=== PATIENT | male | born 1945 | race Hispanic/Latino ===

== ENCOUNTER 2018-10-27 10:29 | Inpatient (IN) | payer MEDICARE ==
[2018-10-27 10:36] VITALS: BMI 27.8
[2018-10-27] MEDS: Sodium Chloride 0.9% 1,000 ML IV SCH ×2 (11:31→21:16)
--- NOTE | 2018-10-27 11:33 | ED PDOC ---
HPI: SOB/CHF/COPD Time Seen by Provider: 10/27/18 10:55 Chief Complaint (Nursing): Shortness Of Breath Chief Complaint (Provider): Shortness Of Breath History Per: Patient History/Exam Limitations: no limitations Onset/Duration Of Symptoms: Days Additional Complaint(s): Emanuel Bowen is a 73 year old male with a past medical history of hypertension who is presenting to the ED for evaluation of inability to sleep for 2 weeks. Patient states that anytime he lays down he feels short of breath and palpitations. He reports that the shortness of breath would resolve about a half hour after he got up. Patient states that he has been medicating with Robitussin for a cold but denies any cough, fever, or chest pain. PMD: none provided Past Medical History Reviewed: Historical Data, Nursing Documentation, Vital Signs Vital Signs: Last Vital Signs Temp 97.7 F 10/27/18 10:36 Pulse 165 H 10/27/18 11:21 Resp 18 10/27/18 11:21 BP 160/132 H 10/27/18 11:21 Pulse Ox 92 L 10/27/18 11:21 - Medical History PMH: HTN Denies: Alzheimer's Disease, Anemia, Anxiety, Arthritis, Asthma, Atrial Fibrillation, Bipolar Disorder, Bronchitis, CAD, Cardia Arrhythmia, CHF, COPD, Crohn's Disease, Dementia, Depression, Diverticulitis, Emphysema, Fractures, Gastritis, Gall Bladder Disease, HIV, Hypercholesterolemia, Hyperthyroidism, Hypothyroidism, Kidney Stones, Migraine, Mitral Valve Prolapse, Multiple Sclerosis, Osteoporosis, Pancreatitis, Paranoia, Parkinson's Disease, Peripheral Edema, Pneumonia, Post Traumatic Stress Disorder, Pulmonary Embolism, Chronic Kidney Disease, Rheumatoid Arthritis, Schizophrenia, Seizures, Sickle Cell Disease, Sexually Transmitted Disease, Sleep Apnea, TIA - Surgical History Surgical History: No Surg Hx Denies: Appendectomy, CABG, Carotid Endarterectomy, Cholecystectomy, Coronary Stent, Pacemaker, Tonsillectomy - Family History Family History: States: Unknown Family Hx - Social History Current smoker - smoking cessation education provided: No Alcohol: None Drugs: Denies - Allergies Allergies/Adverse Reactions: Allergies Allergy/AdvReac Type Severity Reaction Status Date / Time No Known Allergies Allergy Verified 06/06/14 04:18 Review of Systems ROS Statement: Except As Marked, All Systems Reviewed And Found Negative Constitutional: Negative for: Fever Cardiovascular: Positive for: Palpitations. Negative for: Chest Pain Respiratory: Positive for: Shortness of Breath. Negative for: Cough Physical Exam - Reviewed Nursing Documentation Reviewed: Yes Vital Signs Reviewed: Yes - Physical Exam Appears: Positive for: Non-toxic, No Acute Distress Head Exam: Positive for: ATRAUMATIC, NORMAL INSPECTION, NORMOCEPHALIC Skin: Positive for: Normal Color, Warm, DRY Eye Exam: Positive for: EOMI, Normal appearance, PERRL Cardiovascular/Chest: Positive for: Tachycardia, Other (heart sounds elevated ) Respiratory: Positive for: Normal Breath Sounds. Negative for: Respiratory Distress Gastrointestinal/Abdominal: Positive for: Normal Exam, Soft. Negative for: Tenderness Extremity: Positive for: Normal ROM, Pedal Edema (1+ edema right leg and trace in left). Negative for: Capillary Refill, Deformity Neurologic/Psych: Positive for: Alert, Oriented. Negative for: Motor/Sensory Deficits - Laboratory Results Result Diagrams: 10/27/18 11:35 10/27/18 11:35 - ECG ECG Rhythm: Positive for: Atrial Fibrillation, Nonspecific Changes (nonpecific ST changes in lateral leads ) Rate: 103 O2 Sat by Pulse Oximetry: 92 (RA) Medical Decision Making Medical Decision Making: Time: 11:20 Impression: paroxysmal AFib rule out CAD Plan: --EKG --BNP --CMP --Troponin --CBC --D Dimer --Coags --Chest X-Ray --Aspirin 81 mg PO --Cardizem IV --Cardizem 20 mg IVP --IV Fluids --------- -------- Scribe Attestation: Documented by Yadira Rivera, acting as a scribe for Milena Frances MD. Provider Scribe Attestation: All medical record entries made by the Scribe were at my direction and personally dictated by me. I have reviewed the chart and agree that the record accurately reflects my personal performance of the history, physical exam, medical decision making, and the department course for this patient. I have also personally directed, reviewed, and agree with the discharge instructions and disposition. Disposition - Clinical Impression Clinical Impression: New onset a-fib - Patient ED Disposition Is Patient to be Admitted: Yes Doctor Will See Patient In The: Hospital - Disposition Disposition: Transfer of Care Disposition Time: 14:00 Condition: GUARDED Instructions: Atrial Fibrillation Forms: [employer] (Albanian) - Pt Status Changed To: Hospital Disposition Of: Inpatient - Admit Certification Admit to Inpatient:: After my assessment, the patient will require hospitalization for at least two midnights. This is because of the severity of symptoms shown, intensity of services needed, and/or the medical risk in this patient being treated as an outpatient. - POA Present On Arrival: None
--- NOTE | 2018-10-27 11:39 | RAD ---
Date of service: 10/27/2018 PROCEDURE: CHEST RADIOGRAPH, 1 VIEW HISTORY: tachycardia COMPARISON: 06/08/2014 FINDINGS: LUNGS: Clear. PLEURA: Small right pleural effusion. No left pleural effusion. No pneumothorax. CARDIOVASCULAR: No aortic atherosclerotic calcification present. Normal. OSSEOUS STRUCTURES: No significant abnormalities. VISUALIZED UPPER ABDOMEN: Normal. OTHER FINDINGS: None. IMPRESSION: Small right pleural effusion. Otherwise unremarkable.
[2018-10-27 11:44] LABS: BASO % 0.7 % (0.0-2.0); EOS # 0.1 K/uL (0.0-0.7); HEMOGLOBIN 14.4 g/dL (12.0-18.0); LYMPH # 0.8 K/uL (1.0-4.3); LYMPH % 12.5 % (20.0-40.0); MEAN CORPUSCULAR HEMOGLOBIN 32.9 pg (27.0-31.0); MEAN CORPUSCULAR HGB CONC 33.9 g/dL (33.0-37.0); MEAN PLATELET VOLUME 8.4 fl (7.2-11.7); MONO # 0.5 K/uL (0.0-0.8); MONO % 7.4 % (0.0-10.0); NEUT # 5.1 K/uL (1.8-7.0); NEUT % 78.4 % (50.0-75.0); NRBC % 0.1 % (0.0-0.0); RBC 4.37 Mil/uL (4.40-5.90); RED CELL DISTRIBUTION WIDTH 13.1 % (11.5-14.5); WHITE BLOOD COUNT 6.5 K/uL (4.8-10.8)
[2018-10-27 11:51] LABS: INR 1.1; PROTHROMBIN TIME 12.8 Seconds (9.8-13.1)
[2018-10-27 11:54] LABS: PARTIAL THROMBOPLASTIN TIME 32.3 Seconds (25.6-37.1)
[2018-10-27 12:04] LABS: ALB/GLOB RATIO 1.2 (1.0-2.1); CALCIUM 9.5 mg/dL (8.4-10.2)
[2018-10-27 12:20] LABS: TROPONIN I 0.044 ng/mL (0.00-0.120)
[2018-10-27] MEDS ORDERED: Digoxin 500 mcg/2ml (0.5 mg/2ml) Inj IVP STA (17:12)
[2018-10-27] MEDS ORDERED: Metoprolol 1 mg/ml Inj IVP STA (17:20)
--- NOTE | 2018-10-27 17:40 | PCM.RRT ---
ELEVATOR DISPATCHER Nurse Assessment - Situation ELEVATOR DISPATCHER Responder Arrival Time: 17:00 Location: Room [facility] ELEVATOR DISPATCHER Reason for Call: Tachycardia, Hypertension ELEVATOR DISPATCHER Called By: RN - IV IV Inserted during ELEVATOR DISPATCHER?: No - Respiratory Oxygen Delivery Method: Nasal Cannula - Diagnostic Test Ordered EKG: Yes (Atrial fibrillation w/ RVR) - Time ELEVATOR DISPATCHER Ended Time ELEVATOR DISPATCHER Ended: 17:25 - Recommendations ELEVATOR DISPATCHER Level of Care Recommendations: Remain in current setting Notifications: Attending Physician, Consultations (Dr. Farnsworth) I.Reason for ELEVATOR DISPATCHER - A) Acute Change in Patient: (Select all that apply): Acute change in heart rate less than 50 or greater than 120 - Neurological Status (Select all that apply): Alert, Responsive, Oriented, Verbal, Follows Commands - Respiratory Oxygen Delivery Method: Nasal Cannula @L/min (2L) - Constitutional Appears: No Acute Distress - Head Head Exam: ATRAUMATIC - Eyes Eye Exam: Normal appearance - Respiratory Exam Respiratory Exam: Clear to Ausculation Bilateral, NORMAL BREATHING PATTERN - Cardiovascular Exam Cardiovascular Exam: Tachycardia, +S1, +S2 - GI/Abdominal Exam GI & Abdominal Exam: Soft. absent: Tenderness - Neurological Exam Neurological Exam: Alert, Awake, Oriented x3 - Extremities Exam Extremities Exam: Pedal Edema. absent: Calf Tenderness, Tenderness Plan - Assessment of Findings&Treatment Plan 73 y/o pleasant male w/ pmhx of HTN and HLD who was admitted w/ afib. Patient reports that he stopped taking his BP meds months ago due to dizziness and falls, and recently started having palpitation and SOB. ELEVATOR DISPATCHER called for tachycardia and hypertension. Patient is alert, responsive, asymptomatic. Denies chest pain, SOB. Vitals at beginning of ELEVATOR DISPATCHER: BP 185/12 HR 170 SpO2 95% on 3L Patient is on max Cardizem drip. EKG: a fib w/ RVR Patient given Digoxin 0.5mg IV STAT and Metoprolol 5mg IV STAT x1 Cardiology consulted, Dr. Farnsworth at bedside. Vitals at end of ELEVATOR DISPATCHER: BP 161/88 HR 99. Patient stable. Continue to monitor vitals.
--- NOTE | 2018-10-27 17:48 | CARD ---
APPROVED REPORT Date of service: 10/27/2018 EKG Measurement Heart [id number] <Conclusion> Atrial fibrillation with rapid ventricular response with premature ventricular or aberrantly conducted complexes ST & T wave abnormality, consider lateral ischemia Abnormal ECG
--- NOTE | 2018-10-27 18:01 | CP.PCM.CON ---
History of Present Illness - History of Present Illness History of Present Illness: I was asked to evaluate patient by Dr Franco Patient was seen 10/27/18 1700 Patient is a 73 year old male with HTN who presents with dsypnea and uncontrolled hypertension. He has previously been on antihypertensive therapy, but stopped about 2 months ago due to side effects He was found to be in afib with RVR. The patient was given cardizem and is currently on a drip. He denies current chest pain. Review of Systems - Constitutional Constitutional: absent: As Per HPI, Anorexia, Chills, Daytime Sleepiness, Excessive Sweating, Fatigue, Fever, Frequent Falls, Headache, Increased Appetite, Lethargy, Malaise, Night Sweats, Snoring, Sleep Apnea, Weight Gain, Weight Loss, Weakness, Other - EENT Eyes: absent: As Per HPI, Blind Spots, Blurred Vision, Change in Vision, Decreased Night Vision, Diplopia, Discharge, Dry Eye, Exophthalmos, Floaters, Irritation, Itchy Eyes, Loss of Peripheral Vision, Pain, Photophobia, Requires Corrective Lenses, Sees Flashes, Spots in Vision, Tunnel Vision, Other Visual Disturbances, Loss of Vision, Other Ears: absent: As Per HPI, Decreased Hearing, Ear Discharge, Ear Pain, Tinnitus, Abnormal Hearing, Disequilibrium, Dizziness, Other Nose/Mouth/Throat: absent: As Per HPI, Epistaxis, Nasal Congestion, Nasal Discharge, Nasal Obstruction, Nasal Trauma, Nose Pain, Post Nasal Drip, Sinus Pain, Sinus Pressure, Bleeding Gums, Change in Voice, Dental Pain, Dry Mouth, Dysphagia, Halitosis, Hoarsness, Lip Swelling, Mouth Lesions, Mouth Pain, O dynophagia, Sore Throat, Throat Swelling, Tongue Swelling, Facial Pain, Neck Pain, Neck Mass, Other - Cardiovascular Cardiovascular: Dyspnea, Rapid Heart Rate - Respiratory Respiratory: Dyspnea - Gastrointestinal Gastrointestinal: absent: As Per HPI, Abdominal Pain, Belching, Bloating, Change in Bowel Habits, Change in Stool Character, Coffee Ground Emesis, Constipation, Cramping, Diarrhea, Dyspepsia, Dysphagia, Early Satiety, Excessive Flatus, Fecal Incontinence, Heartburn, Hematemesis, Hematochezia, Loose Stools, Melena, Nausea, Odynophagia, Temesmus, Vomiting, Other - Genitourinary Genitourinary: absent: As Per HPI, Change in Urinary Stream, Difficulty Urinating, Dysuria, Flank Pain, Hematuria, Pyuria, Nocturia, Urinary Incontinenc e, Urinary Frequency, Urinary Hesitance, Urinary Urgency, Voiding Freq/Small Amts, Freq UTI, Hx Renal/Bladder Calculi, Hx /Renal Surgery, Bladder Distension, Other - Musculoskeletal Musculoskeletal: absent: As Per HPI, Abnormal Gait, Arthralgias, Atrophy, Back Pain, Deformity, Joint Swelling, Limited Range of Motion, Loss of Height, Muscle Cramps, Muscle Weakness, Myalgias, Neck Pain, Numbness, Radiating Pain into Limb, Stiffness, Tingling, Other - Integumentary Integumentary: absent: As Per HPI, Acne, Alopecia, Bleeding Lesions, Change in Hair, Change in Nails, Change in Pigmentation, Changing Lesions, Dry Skin, Erythema, Furuncle, Hirsutism, Lesions, New Lesions, Non-Healing Lesions, Photosensitivity, Pruritus, Rash, Skin Pain, Skin Ulcer, Sores, Striae, Swelling, Unusual Bruising, Wounds, Jaundice, Other - Neurological Neurological: absent: As Per HPI, Abnormal Gait, Abnormal Hearing, Abnormal Movements, Abnormal Speech, Behavioral Changes, Burning Sensations, Confusion, Convulsions, Disequilibrium, Dizziness, Numbness, Focal Weakness, Frequent Falls, Headaches, Lack of Coordination, Loss of Vision, Memory Loss, Paresthesias, Radicular Pain, Restless Legs, Sensory Deficit, Syncope, Tingling, Tremor, Vertigo, Weakness, Other Visual Disturbances, Other - Psychiatric Psychiatric: absent: As Per HPI, Abnormal Sleep Pattern, Anhedonia, Anxiety, Auditory Hallucinations, Behavioral Changes, Change in Appetite, Change in Li ol[place], Confusion, Depression, Difficulty Concentrating, Hallucinations, Homicidal Ideation, Hopelessness, Irritability, Memory Loss, Mood Swings, Panic Attacks, Paranoia, Suicidal Ideation, Visual Hallucinations, Tactile Hallucinations, Other - Endocrine Endocrine: absent: As Per HPI, Change in Body Appearance, Change in Libido, Cold Intolorance, Deepening of Voice, Excessive Sweating, Fatigue, Flushing, Heat Intolorance, Increase in Ring/Shoe/Hat Size, Palpitations, Polydipsia, Polyphagia, Polyuria, Other - Hematologic/Lymphatic Hematologic: absent: As Per HPI, Easy Bleeding, Easy Bruising, Lymphadenopathy, Other Past Patient History - Infectious Disease Hx of Infectious Diseases: None - Tetanus Immunizations Tetanus Immunization: Unknown - Past Medical History & Family History Past Medical History?: Yes - Past Social History Smoking Status: Never Smoked - CARDIAC Hx Cardiac Disorders: Yes Hx Hypercholesterolemia: Yes Hx Hypertension: Yes - PULMONARY Hx Respiratory Disorders: No Hx Asthma: No Hx Bronchitis: No Hx Chronic Obstructive Pulmonary Disease (COPD): No Hx Emphysema: No Hx Pneumonia: No Hx Pulmonary Embolism: No Hx Sleep Apnea: No - NEUROLOGICAL Hx Neurological Disorder: No Hx Alzheimer's Disease: No Hx Dementia: No Hx Migraine: No Hx Multiple Sclerosis: No Hx Parkinson's Disease: No Hx Seizures: No Hx Transient Ischemic Attacks (TIA): No - HEENT Hx HEENT Problems: No Hx Blind: No Hx Cataracts: No Hx Deafness: No Hx Difficulty Chewing: No Hx Epistaxis: No Hx Glaucoma: No Hx Macular Degeneration: No - RENAL Hx Chronic Kidney Disease: No Hx Kidney Stones: No - ENDOCRINE/METABOLIC Hx Endocrine Disorders: No Hx Hyperthyroidism: No Hx Hypothyroidism: No - HEMATOLOGICAL/ONCOLOGICAL Hx Blood Disorders: No Hx Anemia: No Hx Human Immunodeficiency Virus (HIV): No Hx Sickle Cell Disease: No - INTEGUMENTARY Hx Dermatological Problems: No Hx Basil Cell: No Hx Pitts: No Hx Cellulitis: No Hx Eczema: No Hx Melanoma: No Hx Psoriasis: No Hx Squamous Cell: No Other/Comment: Skin Ca with removal of lesion from left upper arm - MUSCULOSKELETAL/RHEUMATOLOGICAL Hx Musculoskeletal Disorders: No Hx Arthritis: No Hx Falls: No Hx Fractures: No Hx Osteoporosis: No Hx Rheumatoid Arthritis: No - GASTROINTESTINAL Hx Gastrointestinal Disorders: No Hx Crohn's Disease: No Hx Diverticulitis: No Hx Gall Bladder Disease: No Hx Gastritis: No Hx Pancreatitis: No - GENITOURINARY/GYNECOLOGICAL Hx Genitourinary Disorders: No Hx Sexually Transmitted Disorders: No - PSYCHIATRIC Hx Psychophysiologic Disorder: No Hx Anxiety: No Hx Bipolar Disorder: No Hx Depression: No Hx Paranoia: No Hx Post Traumatic Stress Disorder: No Hx Schizophrenia: No Hx Substance Use: No - SURGICAL HISTORY Hx Surgeries: No Hx Appendectomy: No Hx Carotid Endarterectomy: No Hx Cholecystectomy: No Hx Coronary Artery Bypass Graft: No Hx Coronary Stent: No Hx Tonsillectomy: No - ANESTHESIA Hx Anesthesia: Yes Hx Anesthesia Reactions: No Hx Malignant Hyperthermia: No Has any member of the family had a problem w/ anesthesia?: No Meds Allergies/Adverse Reactions: Allergies Allergy/AdvReac Type Severity Reaction Status Date / Time No Known Allergies Allergy Verified 06/06/14 04:18 - Medications Medications: Current Medications Diltiazem HCl 125 mg/ Sodium (Chloride) 125 mls @ 5 mls/hr IV .Q24H [facility]; Protocol Stop: 10/28/18 11:17 Last Admin: 10/27/18 11:39 Dose: 5 mg/hr, 5 mls/hr Sodium Chloride (Sodium Chloride 0.9%) 1,000 mls @ 100 mls/hr IV .Q10H [facility] Last Admin: 10/27/18 11:31 Dose: 100 mls/hr Physical Exam - Constitutional Appears: Non-toxic - Head Exam Head Exam: NORMAL INSPECTION - Eye Exam Eye Exam: Normal appearance - ENT Exam ENT Exam: Mucous Membranes Moist - Neck Exam Neck exam: Positive for: Full Rom - Respiratory Exam Respiratory Exam: Decreased Breath Sounds - Cardiovascular Exam Cardiovascular Exam: Irregular Rhythm - GI/Abdominal Exam GI & Abdominal Exam: Normal Bowel Sounds - Rectal Exam Rectal Exam: Deferred - Extremities Exam Extremities exam: Negative for: pedal edema - Back Exam Back exam: NORMAL INSPECTION - Neurological Exam Neurological exam: Alert, Oriented x3 - Psychiatric Exam Psychiatric exam: Normal Affect - Skin Skin Exam: Normal Color Results - Vital Signs Recent Vital Signs: Last Vital Signs Temp 97.3 F L 10/27/18 16:57 Pulse 121 H 10/27/18 16:57 Resp 20 10/27/18 17:04 BP 167/99 H 10/27/18 16:57 Pulse Ox 95 10/27/18 16:57 - Labs Result Diagrams: 10/27/18 11:35 10/27/18 11:35 Labs: Laboratory Results - last 24 hr 10/27/18 10/27/18 10/27/18 11:35 11:35 11:35 WBC 6.5 RBC 4.37 L Hgb 14.4 Hct 42.4 MCV 97.0 H MCH 32.9 H MCHC 33.9 RDW 13.1 Plt Count 251 MPV 8.4 Neut % (Auto) 78.4 H Lymph % (Auto) 12.5 L [place] % (Auto) 7.4 Eos % (Auto) 1.0 Baso % (Auto) 0.7 Neut # (Auto) 5.1 Lymph # (Auto) 0.8 L [place] # (Auto) 0.5 Eos # (Auto) 0.1 Baso # (Auto) 0.0 PT 12.8 INR 1.1 APTT 32.3 D-Dimer, Quantitative 267 H Sodium 141 Potassium 4.4 Chloride 103 Carbon Dioxide 26 Anion Gap 16 BUN 34 H Creatinine 1.4 Est GFR ( Amer) 60 Est GFR (Non-Af Amer) 50 Random Glucose 114 H Calcium 9.5 Total Bilirubin 0.7 AST 34 ALT 53 Alkaline Phosphatase 106 Troponin I 0.0440 NT-Pro-B Natriuret Pep 4010 H Total Protein 7.5 Albumin 4.0 Globulin 3.4 Albumin/Globulin Ratio 1.2 - EKG Data EKG Interpreted by: Myself Assessment & Plan (1) Atrial fibrillation Assessment and Plan: patient will require rate control. continue cardizem. recommend anticoagulation with lovenox. pro BNP is elevated and likely suggests cardiomyopathy. check echocardiogram Status: Acute (2) Hypertension Assessment and Plan: blood pressure control Status: Chronic Priority: High
[2018-10-28] MEDS: Metoprolol Succinate 50 mg XL Tab PO SCH (09:03)
--- NOTE | 2018-10-28 10:19 | CARD ---
APPROVED REPORT Date of service: 10/27/2018 EKG Measurement Heart [id number] <Conclusion> Atrial fibrillation with rapid ventricular response Nonspecific ST and T wave abnormality Abnormal ECG
[2018-10-28] MEDS ORDERED: Digoxin 500 mcg/2ml (0.5 mg/2ml) Inj IVP ONE (10:30)
--- NOTE | 2018-10-28 11:24 | CP.PCM.PN ---
Subjective - Date & Time of Evaluation Date of Evaluation: 10/28/18 Time of Evaluation: 11:00 - Subjective Subjective: patient had an episode of afib with RVR. no chest pain or dsypnea. Objective - Vital Signs/Intake and Output Vital Signs (last 24 hours): Temp Pulse Resp BP Pulse Ox 98.3 F 155 H 18 148/81 98 10/28/18 07:57 10/28/18 09:52 10/28/18 07:57 10/28/18 09:52 10/28/18 07:57 Intake and Output: 10/28/18 10/28/18 06:59 18:59 Intake Total 125 Balance 125 - Medications Medications: Current Medications Atorvastatin Calcium (Lipitor) 10 mg PO HS [facility] Last Admin: 10/27/18 21:15 Dose: 10 mg Diltiazem HCl (Cardizem) 60 mg PO Q6 NELLI Enoxaparin Sodium (Lovenox) 90 mg SC Q12 [facility]; Protocol Sodium Chloride (Sodium Chloride 0.9%) 1,000 mls @ 100 mls/hr IV .Q10H [facility] Last Admin: 10/27/18 21:16 Dose: 100 mls/hr Metoprolol Succinate (Toprol Xl) 50 mg PO DAILY [facility] Last Admin: 10/28/18 09:03 Dose: 50 mg - Labs Labs: 10/27/18 11:35 10/27/18 11:35 PT 12.8 Seconds (9.8-13.1) 10/27/18 11:35 INR 1.1 10/27/18 11:35 APTT 32.3 Seconds (25.6-37.1) 10/27/18 11:35 - Constitutional Appears: Non-toxic - Head Exam Head Exam: NORMAL INSPECTION - Eye Exam Eye Exam: Normal appearance - ENT Exam ENT Exam: Mucous Membranes Moist - Neck Exam Neck Exam: Full ROM - Respiratory Exam Respiratory Exam: Decreased Breath Sounds - Cardiovascular Exam Cardiovascular Exam: Tachycardia, Irregular Rhythm - GI/Abdominal Exam GI & Abdominal Exam: Normal Bowel Sounds - Rectal Exam Rectal Exam: Deferred - Extremities Exam Extremities Exam: absent: Pedal Edema - Back Exam Back Exam: NORMAL INSPECTION - Neurological Exam Neurological Exam: Alert, Awake, Oriented x3 - Psychiatric Exam Psychiatric exam: Normal Affect - Skin Skin Exam: Normal Color Assessment and Plan (1) Atrial fibrillation Assessment & Plan: needs improved rate control. recommend cardizem 60 mg q 6 hr. maintain lovenox. check echo. will decide on the of oral anticoagulation based on echo results. Status: Acute (2) Hypertension Assessment & Plan: blood pressure control Status: Chronic
[2018-10-28 11:51] VITALS: PULSE 144
[2018-10-28] MEDS: Enoxaparin 100 mg Syringe SC SCH ×3 (11:54→21:58)
--- NOTE | 2018-10-28 20:14 | CARD ---
APPROVED REPORT Date of service: 10/28/2018 EXAM: Two-dimensional and M-mode echocardiogram with Doppler and color Doppler. Other Information Quality : AverageRhythm : Atrial Fibrillation INDICATION Abnormal EKG/Arrhythmia AFIB 2D DIMENSIONS IVSd1.66 (0.7-1.1cm)LVDd5.11 (3.9-5.9cm) LVOT Diameter2.29 (1.8-2.4cm)PWd1.15 (0.7-1.1cm) IVSs2.07 (0.8-1.2cm)LVDs3.19 (2.5-4.0cm) FS (%) 37.6 %PWs1.33 (0.8-1.2cm) M-Mode DIMENSIONS Left Atrium (MM)4.34 (2.5-4.0cm)Aortic Root3.24 (2.2-3.7cm) Aortic Valve AoV Peak Cuhtgshx548.1cm/sAoV VTI17.2cmAO Peak GR.6mmHg LVOT Peak Cctsmepk96.9cm/sLVOT VTI13.21cmAO Mean GR.3mmHg SANGITA (VMAX)1.27gl1UPU (VTI)1.50cm2 Mitral Valve MV E Peak Gr.56mmHgE/A ratio0.0 TDI E/Lateral E'0.0E/Medial E'0.0 Pulmonary Valve PV Peak Wzldbedy07.3cm/s Tricuspid Valve TR Peak Hquzilam393ge/sRAP [id number] Peak Gr.26mmHg [id number] LEFT VENTRICLE The left ventricle is normal size. There is mild concentric left ventricular hypertrophy. The left ventricular systolic function is normal. The estimated ejection fraction is 60-65% No regional wall motion abnormalities noted.. The left ventricular diastolic function cannot be assessed due to atrial fibrillation. No left ventricle thrombus noted on this study. There is no ventricular septal defect visualized. There is no left ventricular aneurysm. There is no mass noted in the left ventricle. RIGHT VENTRICLE The right ventricle is normal size. There is normal right ventricular wall thickness. The right ventricular systolic function is normal. ATRIA The left atrium is mild to moderately dilated. The right atrium size is normal. The interatrial septum is intact with no evidence for an atrial septal defect. AORTIC VALVE The aortic valve is normal in structure. No aortic regurgitation is present. There is no aortic valvular stenosis. There is no aortic valvular vegetation. MITRAL VALVE The mitral valve is normal in structure. There is no evidence of mitral valve prolapse. There is no mitral valve stenosis. There is mild mitral valve regurgitation noted. TRICUSPID VALVE The tricuspid valve is normal in structure. There is mild tricuspid valve regurgitation noted. RVSP is calculated at 42 mm Hg. There is no tricuspid valve prolapse or vegetation. There is no tricuspid valve stenosis. PULMONIC VALVE The pulmonary valve is normal in structure. There is no pulmonic valvular regurgitation. There is no pulmonic valvular stenosis. GREAT VESSELS The aortic root is normal in size. The ascending aorta is mildly dilated (4.0 cm). The pulmonary artery is normal. The IVC is dilated in size and collapses >50% with inspiration. PERICARDIAL EFFUSION There is no pericardial effusion. There is no pleural effusion. <Conclusion> There is mild concentric left ventricular hypertrophy. The estimated ejection fraction is 60-65% The left ventricular diastolic function cannot be assessed due to atrial fibrillation. The left atrium is mild to moderately dilated. There is mild mitral valve regurgitation noted. There is mild tricuspid valve regurgitation noted. RVSP is calculated at 42 mm Hg. The ascending aorta is mildly dilated (4.0 cm). The IVC is dilated in size and collapses >50% with inspiration.
--- NOTE | 2018-10-29 01:10 | CP.PCM.HP ---
Past Patient History - Infectious Disease Hx of Infectious Diseases: None - Tetanus Immunizations Tetanus Immunization: Unknown - Past Medical History & Family History Past Medical History?: Yes - Past Social History Smoking Status: Never Smoked - CARDIAC Hx Cardiac Disorders: Yes Hx Hypercholesterolemia: Yes Hx Hypertension: Yes - PULMONARY Hx Respiratory Disorders: No Hx Asthma: No Hx Bronchitis: No Hx Chronic Obstructive Pulmonary Disease (COPD): No Hx Emphysema: No Hx Pneumonia: No Hx Pulmonary Embolism: No Hx Sleep Apnea: No - NEUROLOGICAL Hx Neurological Disorder: No Hx Alzheimer's Disease: No Hx Dementia: No Hx Migraine: No Hx Multiple Sclerosis: No Hx Parkinson's Disease: No Hx Seizures: No Hx Transient Ischemic Attacks (TIA): No - HEENT Hx HEENT Problems: No Hx Blind: No Hx Cataracts: No Hx Deafness: No Hx Difficulty Chewing: No Hx Epistaxis: No Hx Glaucoma: No Hx Macular Degeneration: No - RENAL Hx Chronic Kidney Disease: No Hx Kidney Stones: No - ENDOCRINE/METABOLIC Hx Endocrine Disorders: No Hx Hyperthyroidism: No Hx Hypothyroidism: No - HEMATOLOGICAL/ONCOLOGICAL Hx Blood Disorders: No Hx Anemia: No Hx Human Immunodeficiency Virus (HIV): No Hx Sickle Cell Disease: No - INTEGUMENTARY Hx Dermatological Problems: No Hx Basil Cell: No Hx Pitts: No Hx Cellulitis: No Hx Eczema: No Hx Melanoma: No Hx Psoriasis: No Hx Squamous Cell: No Other/Comment: Skin Ca with removal of lesion from left upper arm - MUSCULOSKELETAL/RHEUMATOLOGICAL Hx Musculoskeletal Disorders: No Hx Arthritis: No Hx Falls: No Hx Fractures: No Hx Osteoporosis: No Hx Rheumatoid Arthritis: No - GASTROINTESTINAL Hx Gastrointestinal Disorders: No Hx Crohn's Disease: No Hx Diverticulitis: No Hx Gall Bladder Disease: No Hx Gastritis: No Hx Pancreatitis: No - GENITOURINARY/GYNECOLOGICAL Hx Genitourinary Disorders: No Hx Sexually Transmitted Disorders: No - PSYCHIATRIC Hx Psychophysiologic Disorder: No Hx Anxiety: No Hx Bipolar Disorder: No Hx Depression: No Hx Paranoia: No Hx Post Traumatic Stress Disorder: No Hx Schizophrenia: No Hx Substance Use: No - SURGICAL HISTORY Hx Surgeries: No Hx Appendectomy: No Hx Carotid Endarterectomy: No Hx Cholecystectomy: No Hx Coronary Artery Bypass Graft: No Hx Coronary Stent: No Hx Tonsillectomy: No - ANESTHESIA Hx Anesthesia: Yes Hx Anesthesia Reactions: No Hx Malignant Hyperthermia: No Has any member of the family had a problem w/ anesthesia?: No Meds Allergies/Adverse Reactions: Allergies Allergy/AdvReac Type Severity Reaction Status Date / Time No Known Allergies Allergy Verified 06/06/14 04:18 Results - Vital Signs Recent Vital Signs: Last Vital Signs Temp 97.5 F L 10/29/18 00:19 Pulse 96 H 10/29/18 00:19 Resp 18 10/29/18 00:19 BP 159/99 H 10/29/18 00:19 Pulse Ox 95 10/29/18 00:19 - Labs Result Diagrams: 10/27/18 11:35 10/27/18 11:35
[2018-10-29] MEDS: Enoxaparin 100 mg Syringe SC SCH (09:17)
[2018-10-29] MEDS: Metoprolol Succinate 50 mg XL Tab PO SCH ×2 (09:18→17:10)
[2018-10-29 11:42] LABS: MEAN CELL VOLUME 97.1 fl (80.0-94.0); MEAN CORPUSCULAR HEMOGLOBIN 32.5 pg (27.0-31.0); MEAN CORPUSCULAR HGB CONC 33.5 g/dL (33.0-37.0); RBC 4.31 Mil/uL (4.40-5.90); RED CELL DISTRIBUTION WIDTH 12.9 % (11.5-14.5); WHITE BLOOD COUNT 6.4 K/uL (4.8-10.8)
[2018-10-29 11:58] LABS: ALB/GLOB RATIO 1.2 (1.0-2.1); ALBUMIN 3.8 g/dL (3.5-5.0); ALT/SGPT 36 U/L (21-72); AST/SGOT 29 U/L (17-59); BLOOD UREA NITROGEN 15 mg/dl (9-20); CALCIUM 9.5 mg/dL (8.4-10.2); GFR NON-AFRICAN AMERICAN 59
[2018-10-29 12:01] LABS: B-TYPE NATRIURETIC PEPTIDE 1870 pg/ml (0-900)
[2018-10-30 07:21] LABS: BLOOD UREA NITROGEN 16 mg/dl (9-20); CALCIUM 9.3 mg/dL (8.4-10.2); GFR NON-AFRICAN AMERICAN 54; HDL CHOLESTEROL 49 MG/DL (30-70)
[2018-10-30 07:32] LABS: LDL CHOLESTEROL 59 mg/dL (0-129)
[2018-10-30] MEDS: Metoprolol Succinate 50 mg XL Tab PO SCH ×2 (09:32→17:02)
--- NOTE | 2018-10-30 10:58 | CP.PCM.PN ---
Subjective - Date & Time of Evaluation Date of Evaluation: 10/30/18 Time of Evaluation: 10:20 - Subjective Subjective: patient has no dyspnea or chest pain. wants to go home. Objective - Vital Signs/Intake and Output Vital Signs (last 24 hours): Temp Pulse Resp BP Pulse Ox 97.6 F 85 19 168/84 H 96 10/30/18 08:34 10/30/18 09:32 10/30/18 08:34 10/30/18 09:32 10/30/18 08:34 - Medications Medications: Current Medications Atorvastatin Calcium (Lipitor) 10 mg PO [facility] Last Admin: 10/29/18 22:05 Dose: 10 mg Diltiazem HCl (Cardizem Cd) 300 mg PO DAILY [facility] Enalapril Maleate (Vasotec) 2.5 mg PO DAILY [facility] Last Admin: 10/30/18 09:32 Dose: 2.5 mg Enalapril Maleate (Vasotec) 10 mg PO DAILY [facility] Sodium Chloride (Sodium Chloride 0.9%) 1,000 mls @ 100 mls/hr IV .Q10H [facility] Last Admin: 10/27/18 21:16 Dose: 100 mls/hr Metoprolol Succinate (Toprol Xl) 50 mg PO BID [facility] Last Admin: 10/30/18 09:32 Dose: 50 mg Rivaroxaban (Xarelto) 20 mg PO QD5 [facility]; Protocol Last Admin: 10/29/18 17:10 Dose: 20 mg - Labs Labs: 10/29/18 09:15 10/30/18 06:00 PT 12.8 Seconds (9.8-13.1) 10/27/18 11:35 INR 1.1 10/27/18 11:35 APTT 32.3 Seconds (25.6-37.1) 10/27/18 11:35 - Constitutional Appears: Non-toxic - Head Exam Head Exam: NORMAL INSPECTION - Eye Exam Eye Exam: Normal appearance - ENT Exam ENT Exam: Mucous Membranes Moist - Neck Exam Neck Exam: Full ROM - Respiratory Exam Respiratory Exam: NORMAL BREATHING PATTERN - Cardiovascular Exam Cardiovascular Exam: Irregular Rhythm - GI/Abdominal Exam GI & Abdominal Exam: Normal Bowel Sounds - Rectal Exam Rectal Exam: Deferred - Extremities Exam Extremities Exam: absent: Pedal Edema - Back Exam Back Exam: NORMAL INSPECTION - Neurological Exam Neurological Exam: Alert - Psychiatric Exam Psychiatric exam: Normal Affect - Skin Skin Exam: Normal Color Assessment and Plan (1) Atrial fibrillation Assessment & Plan: rate controlled. recommend continued therapy. anticaogulation with Xaarelto. will discuss further management of afib as an outpatient. Status: Acute (2) Hypertension Assessment & Plan: blood pressure control. Status: Chronic
[2018-10-30] MEDS: diltiaZEM 300 mg/24 Hours CD Cap PO SCH (17:02)
--- NOTE | 2018-10-30 22:35 | CP.PCM.PN ---
Subjective - Date & Time of Evaluation Date of Evaluation: 10/29/18 Time of Evaluation: 18:20 Objective - Vital Signs/Intake and Output Vital Signs (last 24 hours): Temp Pulse Resp BP Pulse Ox 98.7 F 79 20 162/89 H 97 10/30/18 19:17 10/30/18 19:17 10/30/18 19:17 10/30/18 19:17 10/30/18 19:17 - Medications Medications: Current Medications Atorvastatin Calcium (Lipitor) 10 mg PO [facility] Last Admin: 10/30/18 22:03 Dose: 10 mg Diltiazem HCl (Cardizem Cd) 300 mg PO DAILY [facility] Last Admin: 10/30/18 17:02 Dose: 300 mg Enalapril Maleate (Vasotec) 10 mg PO DAILY [facility] Last Admin: 10/30/18 13:01 Dose: 10 mg Enalapril Maleate (Vasotec) 2.5 mg PO DAILY [facility] Sodium Chloride (Sodium Chloride 0.9%) 1,000 mls @ 100 mls/hr IV .Q10H [facility] Last Admin: 10/27/18 21:16 Dose: 100 mls/hr Metoprolol Succinate (Toprol Xl) 50 mg PO BID [facility] Last Admin: 10/30/18 17:02 Dose: 50 mg Rivaroxaban (Xarelto) 20 mg PO QD5 [facility]; Protocol Last Admin: 10/30/18 17:02 Dose: 20 mg - Labs Labs: 10/29/18 09:15 10/30/18 06:00 PT 12.8 Seconds (9.8-13.1) 10/27/18 11:35 INR 1.1 10/27/18 11:35 APTT 32.3 Seconds (25.6-37.1) 10/27/18 11:35
--- NOTE | 2018-10-30 22:35 | CP.PCM.PN ---
Subjective - Date & Time of Evaluation Date of Evaluation: 10/30/18 Time of Evaluation: 18:30 Objective - Vital Signs/Intake and Output Vital Signs (last 24 hours): Temp Pulse Resp BP Pulse Ox 98.7 F 79 20 162/89 H 97 10/30/18 19:17 10/30/18 19:17 10/30/18 19:17 10/30/18 19:17 10/30/18 19:17 - Medications Medications: Current Medications Atorvastatin Calcium (Lipitor) 10 mg PO [facility] Last Admin: 10/30/18 22:03 Dose: 10 mg Diltiazem HCl (Cardizem Cd) 300 mg PO DAILY [facility] Last Admin: 10/30/18 17:02 Dose: 300 mg Enalapril Maleate (Vasotec) 10 mg PO DAILY [facility] Last Admin: 10/30/18 13:01 Dose: 10 mg Enalapril Maleate (Vasotec) 2.5 mg PO DAILY [facility] Sodium Chloride (Sodium Chloride 0.9%) 1,000 mls @ 100 mls/hr IV .Q10H [facility] Last Admin: 10/27/18 21:16 Dose: 100 mls/hr Metoprolol Succinate (Toprol Xl) 50 mg PO BID [facility] Last Admin: 10/30/18 17:02 Dose: 50 mg Rivaroxaban (Xarelto) 20 mg PO QD5 [facility]; Protocol Last Admin: 10/30/18 17:02 Dose: 20 mg - Labs Labs: 10/29/18 09:15 10/30/18 06:00 PT 12.8 Seconds (9.8-13.1) 10/27/18 11:35 INR 1.1 10/27/18 11:35 APTT 32.3 Seconds (25.6-37.1) 10/27/18 11:35
[2018-10-31 08:01] VITALS: BP 157/90; RESP 22; TEMP 97.6; O2SAT 99
[2018-10-31 08:24] VITALS: PULSE 85
[2018-10-31] MEDS: Metoprolol Succinate 50 mg XL Tab PO SCH (09:03)
[2018-10-31] MEDS: diltiaZEM 300 mg/24 Hours CD Cap PO SCH (09:04)
--- NOTE | 2018-11-01 19:26 | CP.PCM.DIS ---
Provider - Provider Date of Admission: 10/27/18 14:33 Attending physician: Cookie Franco MD Consults: 10/27/18 17:25 Cardiology Consult Routine Comment: Consulting Provider: Jalen Farnsworth Consulting Physician: Jalen Farnsworth Reason for Consult: A-fib with RVR, elevated pro BNP Time Spent in preparation of Discharge (in minutes): 25 Diagnosis - Discharge Diagnosis (1) Atrial fibrillation with RVR Status: Acute (2) Chest pain Status: Acute Priority: High (3) Depression (emotion) Status: Acute Priority: Low (4) Hypertension Status: Chronic Priority: High Hospital Course - Lab Results Lab Results: Most Recent Lab Values WBC 6.4 K/uL (4.8-10.8) 10/29/18 09:15 RBC 4.31 Mil/uL (4.40-5.90) L 10/29/18 09:15 Hgb 14.0 g/dL (12.0-18.0) 10/29/18 09:15 Hct 41.8 % (35.0-51.0) 10/29/18 09:15 MCV 97.1 fl (80.0-94.0) H 10/29/18 09:15 MCH 32.5 pg (27.0-31.0) H 10/29/18 09:15 MCHC 33.5 g/dL (33.0-37.0) 10/29/18 09:15 RDW 12.9 % (11.5-14.5) 10/29/18 09:15 Plt Count 226 K/uL (130-400) 10/29/18 09:15 MPV 8.4 fl (7.2-11.7) 10/27/18 11:35 Neut % (Auto) 78.4 % (50.0-75.0) H 10/27/18 11:35 Lymph % (Auto) 12.5 % (20.0-40.0) L 10/27/18 11:35 [place] % (Auto) 7.4 % (0.0-10.0) 10/27/18 11:35 Eos % (Auto) 1.0 % (0.0-4.0) 10/27/18 11:35 Baso % (Auto) 0.7 % (0.0-2.0) 10/27/18 11:35 Neut # (Auto) 5.1 K/uL (1.8-7.0) 10/27/18 11:35 Lymph # (Auto) 0.8 K/uL (1.0-4.3) L 10/27/18 11:35 [place] # (Auto) 0.5 K/uL (0.0-0.8) 10/27/18 11:35 Eos # (Auto) 0.1 K/uL (0.0-0.7) 10/27/18 11:35 Baso # (Auto) 0.0 K/uL (0.0-0.2) 10/27/18 11:35 PT 12.8 Seconds (9.8-13.1) 10/27/18 11:35 INR 1.1 10/27/18 11:35 APTT 32.3 Seconds (25.6-37.1) 10/27/18 11:35 D-Dimer, Quantitative 267 ng/mlDDU (0-230) H 10/27/18 11:35 Sodium 141 mmol/l (132-148) 10/30/18 06:00 Potassium 3.7 MMOL/L (3.6-5.0) 10/30/18 06:00 Chloride 102 mmol/L (98-107) 10/30/18 06:00 Carbon Dioxide 28 mmol/L (22-30) 10/30/18 06:00 Anion Gap 15 (10-20) 10/30/18 06:00 BUN 16 mg/dl (9-20) 10/30/18 06:00 Creatinine 1.3 mg/dl (0.8-1.5) 10/30/18 06:00 Est GFR ( Amer) > 60 10/30/18 06:00 Est GFR (Non-Af Amer) 54 10/30/18 06:00 Random Glucose 97 mg/dL (75-110) 10/30/18 06:00 Calcium 9.3 mg/dL (8.4-10.2) 10/30/18 06:00 Phosphorus 2.6 mg/dl (2.5-4.5) 10/29/18 09:15 Magnesium 2.1 MG/DL (1.6-2.3) 10/29/18 09:15 Total Bilirubin 0.6 mg/dl (0.2-1.3) 10/29/18 09:15 AST 29 U/L (17-59) 10/29/18 09:15 ALT 36 U/L (21-72) 10/29/18 09:15 Alkaline Phosphatase 87 U/L (38-126) 10/29/18 09:15 Troponin I 0.0440 ng/mL (0.00-0.120) 10/27/18 11:35 NT-Pro-B Natriuret Pep 1870 pg/ml (0-900) H 10/29/18 09:15 Total Protein 7.0 G/DL (6.3-8.2) 10/29/18 09:15 Albumin 3.8 g/dL (3.5-5.0) 10/29/18 09:15 Globulin 3.2 gm/dL (2.2-3.9) 10/29/18 09:15 Albumin/Globulin Ratio 1.2 (1.0-2.1) 10/29/18 09:15 Triglycerides 105 mg/DL (0-149) D 10/30/18 06:00 Cholesterol 132 mg/dL (0-199) 10/30/18 06:00 LDL Cholesterol Direct 59 mg/dL (0-129) 10/30/18 06:00 HDL Cholesterol 49 MG/DL (30-70) 10/30/18 06:00 Discharge Exam - Head Exam Head Exam: NORMAL INSPECTION Discharge Plan - Discharge Medications Prescriptions: diltiaZEM CD [Cardizem CD] 300 mg PO DAILY 30 Days cap Rivaroxaban [Xarelto] 20 mg PO QD5 30 Days tab - Follow Up Plan Condition: GUARDED Disposition: HOME/ ROUTINE Instructions: Atrial Fibrillation (DC), Chest Pain (DC) Additional Instructions: follow up with and in 1 week Referrals: [facility] [Outside] Cookie Franco MD [Staff Provider] - Jalen Farnsworth MD [Staff Provider] -
== END 2018-10-31 09:35 | disposition home or self-care (01) | DRG 310 ==
LOC: H.ER 10:29 → H.ERHOLD 14:33 → H.TEL 16:27
PROVIDERS: ADMIT Internal Medicine; ATTEND Internal Medicine
DX: I48.0 Paroxysmal atrial fibrillation (principal); I10 Essential (primary) hypertension; E78.00 Pure hypercholesterolemia, unspecified; F32.9 Major depressive disorder, single episode, unspecified

== ENCOUNTER 2018-11-20 15:20 | Inpatient (IN) | payer MEDICARE ==
[2018-11-20 15:20] VITALS: PULSE 144; BMI 27.8
[2018-11-20] MEDS ORDERED: Iodixanol 320 MG/ML 100 ML BOTTLE IV ONE (16:00)
[2018-11-20] MEDS ORDERED: Sodium Chloride 0.9% 50 ML IV ONE (16:00)
--- NOTE | 2018-11-20 16:15 | ED PDOC ---
HPI: General Adult Time Seen by Provider: 11/20/18 15:40 Chief Complaint (Nursing): Trauma Chief Complaint (Provider): Trauma History Per: Patient History/Exam Limitations: no limitations Onset/Duration Of Symptoms: Days (today) Additional Complaint(s): 73 year old male with a history of hypertension and high cholesterol presents to the ED s/p fall. Patient reports he hit his head, but it is unclear if it was syncopal or mechanical. He states he was on the toilet having a strained bowel when he stood up. Patient was bracing himself on the toilet when his hand slipped and he fell. Girlfriend reported to EMS that she saw him stand up then fall. Girlfriend states he was unconscious before he hit his head. At this time, patient reports pain to forehead from where he hit it. Over the last week, patient has had worsening shortness of breath, especially when lying flat. Patient was discharged last month and diagnosed with atrial fibrillation. He struggles to take his medications because he has trouble reading labels. Patient doesnt think he is taking them when he should. He is currently on medication for atrial fibrillation and he thinks he takes medication for diuresis. Patient denies any other pain, headache, neck pain, or nausea. PMD: none provided Past Medical History Reviewed: Historical Data, Nursing Documentation, Vital Signs Vital Signs: Last Vital Signs Temp 97.7 F 11/20/18 15:31 Pulse 170 H 11/20/18 15:31 Resp 18 11/20/18 15:31 BP 164/105 H 11/20/18 15:31 Pulse Ox 100 11/20/18 15:31 - Medical History PMH: HTN, Hypercholesterolemia Denies: Alzheimer's Disease, Anemia, Anxiety, Arthritis, Asthma, Atrial Fi brillation, Bipolar Disorder, Bronchitis, CAD, Cardia Arrhythmia, CHF, COPD, Crohn's Disease, Dementia, Depression, Diverticulitis, Emphysema, Fractures, Gastritis, Gall Bladder Disease, HIV, Hyperthyroidism, Hypothyroidism, Kidney Stones, Migraine, Mitral Valve Prolapse, Multiple Sclerosis, Osteoporosis, Pancreatitis, Paranoia, Parkinson's Disease, Peripheral Edema, Pneumonia, Post Traumatic Stress Disorder, Pulmonary Embolism, Chronic Kidney Disease, Rheumatoid Arthritis, Schizophrenia, Seizures, Sickle Cell Disease, Sexually Transmitted Disease, Sleep Apnea, TIA - Surgical History Surgical History: Denies: Appendectomy, CABG, Carotid Endarterectomy, Cholecystectomy, Coronary Stent, Pacemaker, Tonsillectomy - Family History Family History: States: Unknown Family Hx - Home Medications Home Medications: Ambulatory Orders Medication Instructions Recorded Metoprolol Succinate XL [Toprol XL] 50 mg PO BID tab 10/30/18 diltiaZEM CD [Cardizem CD] 300 mg PO DAILY 30 Days cap 10/30/18 Lisinopril [Zestril] 10 mg PO DAILY 11/20/18 - Allergies Allergies/Adverse Reactions: Allergies Allergy/AdvReac Type Severity Reaction Status Date / Time No Known Allergies Allergy Verified 06/06/14 04:18 Review of Systems ROS Statement: Except As Marked, All Systems Reviewed And Found Negative Respiratory: Positive for: Shortness of Breath (especially when lying flat) Gastrointestinal: Negative for: Nausea Musculoskeletal: Positive for: Other (forehead pain ). Negative for: Neck Pain Neurological: Positive for: Other (LOC). Negative for: Headache Physical Exam - Reviewed Nursing Documentation Reviewed: Yes Vital Signs Reviewed: Yes - Physical Exam Appears: Positive for: No Acute Distress (and appears disheveled with smell of urine ) Head Exam: Positive for: ATRAUMATIC, NORMOCEPHALIC Skin: Positive for: Normal Color, Warm, Dry Eye Exam: Positive for: Normal appearance, EOMI, PERRL Cardiovascular/Chest: Positive for: Regular Rate, Rhythm, Tachycardia, Other (atrial fibrillation on monitor 160s ). Negative for: Murmur Respiratory: Positive for: Crackles (in bilateral lung bases ) Gastrointestinal/Abdominal: Positive for: Normal Exam, Soft. Negative for: Tenderness Extremity: Positive for: Normal ROM (upper and lower), Pedal Edema (pitting edema of both legs up to knees bilaterally). Negative for: Deformity Neurological/Psych: Positive for: Awake, Alert, Oriented (x3) Comments: HEAD: small area of bruising to right forehead - Laboratory Results Result Diagrams: 11/21/18 04:30 11/21/18 04:30 - ECG O2 Sat by Pulse Oximetry: 100 (RA) Pulse Ox Interpretation: Normal Medical Decision Making Medical Decision Making: Time: 1540 Workup for atrial fibrillation, syncopal vs mechanical fall and fluid overload Plan: --Cardiac enzymes --CXR --CT brain --CT angio head and neck --Cardizem for a fib --consider Lasix if elevated BNP Time: 1600 --Patient to be admitted Time: 1806 --Patient remains in and out of atrial fibrillation despite cardizem drip and lopressor. Gave lasixs for CHF. Could not obtain CT angio due to worsening renal function. CT brain unremarkable. Spoke to Dr. Franco for admission and consult for Dr. Farnsworth. -- Scribe Attestation: Documented by Daniela Kim, acting as a scribe for Lo Jerome MD. Provider Scribe Attestation: All medical record entries made by the Scribe were at my direction and personally dictated by me. I have reviewed the chart and agree that the record accurately reflects my personal performance of the history, physical exam, medical decision making, and the department course for this patient. I have also personally directed, reviewed, and agree with the discharge instructions and disposition. Disposition - Clinical Impression Clinical Impression: Chest pain, Atrial fibrillation with RVR - Disposition Disposition Time: 18:05 Condition: STABLE
[2018-11-20 16:46] LABS: BASO # 0.1 K/uL (0.0-0.2); BASO % 0.8 % (0.0-2.0); EOS % 0.3 % (0.0-4.0); HEMOGLOBIN 14.1 g/dL (12.0-18.0); LYMPH # 0.9 K/uL (1.0-4.3); LYMPH % 11.8 % (20.0-40.0); MEAN CELL VOLUME 96.7 fl (80.0-94.0); MEAN CORPUSCULAR HEMOGLOBIN 32.2 pg (27.0-31.0); MEAN CORPUSCULAR HGB CONC 33.3 g/dL (33.0-37.0); MEAN PLATELET VOLUME 8.4 fl (7.2-11.7); MONO # 0.5 K/uL (0.0-0.8); MONO % 6.3 % (0.0-10.0); NEUT % 80.8 % (50.0-75.0); NRBC % 0.1 % (0.0-0.0); RBC 4.36 Mil/uL (4.40-5.90); RED CELL DISTRIBUTION WIDTH 13.4 % (11.5-14.5); WHITE BLOOD COUNT 7.4 K/uL (4.8-10.8)
[2018-11-20 16:52] LABS: INR 1.3; PROTHROMBIN TIME 14.7 Seconds (9.8-13.1)
[2018-11-20 16:54] LABS: PARTIAL THROMBOPLASTIN TIME 30.3 Seconds (25.6-37.1)
[2018-11-20 17:10] LABS: CALCIUM 9.4 mg/dL (8.4-10.2); TROPONIN I 0.076 ng/mL (0.00-0.120)
[2018-11-20] MEDS ORDERED: Potassium Chloride 20 mEq 100 ML IVPB ONE (17:30)
[2018-11-20] MEDS ORDERED: Metoprolol 1 mg/ml Inj IVP STA (17:49)
[2018-11-20] MEDS ORDERED: Metoprolol 1 mg/ml Inj ONE (18:07)
[2018-11-20] MEDS ORDERED: Potassium CL 10 MEQ/50 ML 50 ML IVPB ONE (18:07)
[2018-11-20] MEDS ORDERED: Potassium CL 10 MEQ/50 ML 50 ML ONE (18:18)
--- NOTE | 2018-11-20 18:38 | RAD ---
Date of service: 11/20/2018 HISTORY: possible admission COMPARISON: 10/27/2018 FINDINGS: LUNGS: Bibasilar infiltrates with small right pleural effusion. Overall findings worsened since prior exam. PLEURA: See above. CARDIOVASCULAR: No aortic atherosclerotic calcification present. Normal cardiac size. No pulmonary vascular congestion. OSSEOUS STRUCTURES: No significant abnormalities. VISUALIZED UPPER ABDOMEN: Normal. OTHER FINDINGS: None. IMPRESSION: Bibasilar infiltrates with small right pleural effusion. Overall findings worsened since prior exam.
--- NOTE | 2018-11-20 19:52 | CT ---
Date of service: 11/20/2018 PROCEDURE: CT HEAD WITHOUT CONTRAST. HISTORY: syncope with head inj COMPARISON: None available. TECHNIQUE: Axial computed tomography images were obtained through the head/brain without intravenous contrast. Radiation dose: Total exam DLP = 1266.51 mGy-cm. This CT exam was performed using one or more of the following dose reduction techniques: Automated exposure control, adjustment of the mA and/or kV according to patient size, and/or use of iterative reconstruction technique. FINDINGS: HEMORRHAGE: No intracranial hemorrhage. BRAIN: No mass effect or edema. Chronic periventricular white matter ischemic disease and bilateral chronic lacunar infarcts. VENTRICLES: Unremarkable. No hydrocephalus. CALVARIUM: Unremarkable. PARANASAL SINUSES: Unremarkable as visualized. No significant inflammatory changes. MASTOID AIR CELLS: Unremarkable as visualized. No inflammatory changes. OTHER FINDINGS: None. IMPRESSION: No acute hemorrhage.
[2018-11-20] MEDS ORDERED: Metoprolol Succinate 50 mg XL Tab PO SCH (23:00)
[2018-11-20] MEDS: Metoprolol Succinate 50 mg XL Tab PO SCH (23:22)
[2018-11-21 06:10] LABS: HEMOGLOBIN 13.9 g/dL (12.0-18.0); MEAN CELL VOLUME 96.5 fl (80.0-94.0); MEAN CORPUSCULAR HEMOGLOBIN 32.7 pg (27.0-31.0); MEAN CORPUSCULAR HGB CONC 33.8 g/dL (33.0-37.0); RBC 4.27 Mil/uL (4.40-5.90); RED CELL DISTRIBUTION WIDTH 13.6 % (11.5-14.5)
[2018-11-21 06:19] LABS: ALB/GLOB RATIO 1.2 (1.0-2.1); ALBUMIN 3.9 g/dL (3.5-5.0); ALT/SGPT 44 U/L (21-72); AST/SGOT 42 U/L (17-59); BLOOD UREA NITROGEN 20 mg/dl (9-20); CALCIUM 9.1 mg/dL (8.4-10.2); GFR NON-AFRICAN AMERICAN > 60
--- NOTE | 2018-11-21 07:33 | CP.PCM.CON ---
History of Present Illness - History of Present Illness History of Present Illness: Patient seen/examined full consutl to follow Known history of HTN, atrial fibrillation with last workup one month ago. morena has been oncompliant with medications, presents with afib with RVR. Recommend rate control with cardizem Patient is s/p fall. he may not be ideal for anticaogulation . Past Patient History - Infectious Disease Hx of Infectious Diseases: None - Tetanus Immunizations Tetanus Immunization: Unknown - Past Medical History & Family History Past Medical History?: Yes - Past Social History Smoking Status: Never Smoked - CARDIAC Hx Atrial Fibrillation: No Hx Cardia Arrhythmia: No Hx Congestive Heart Failure: No Hx Hypercholesterolemia: Yes Hx Hypertension: Yes Hx Mitral Valve Prolapse: No Hx Pacemaker: No Hx Peripheral Edema: No - PULMONARY Hx Asthma: No Hx Bronchitis: No Hx Chronic Obstructive Pulmonary Disease (COPD): No Hx Emphysema: No Hx Pneumonia: No Hx Pulmonary Embolism: No Hx Sleep Apnea: No - NEUROLOGICAL Hx Alzheimer's Disease: No Hx Dementia: No Hx Migraine: No Hx Multiple Sclerosis: No Hx Parkinson's Disease: No Hx Seizures: No Hx Transient Ischemic Attacks (TIA): No - HEENT Hx HEENT Problems: No Hx Blind: No Hx Cataracts: No Hx Deafness: No Hx Difficulty Chewing: No Hx Epistaxis: No Hx Glaucoma: No Hx Macular Degeneration: No - RENAL Hx Chronic Kidney Disease: No - ENDOCRINE/METABOLIC Hx Hyperthyroidism: No Hx Hypothyroidism: No - HEMATOLOGICAL/ONCOLOGICAL Hx Anemia: No Hx Human Immunodeficiency Virus (HIV): No Hx Sickle Cell Disease: No - INTEGUMENTARY Hx Dermatological Problems: No Hx Basil Cell: No Hx Pitts: No Hx Cellulitis: No Hx Eczema: No Hx Melanoma: No Hx Psoriasis: No Hx Squamous Cell: No Other/Comment: Skin Ca with removal of lesion from left upper arm - MUSCULOSKELETAL/RHEUMATOLOGICAL Hx Arthritis: No Hx Falls: Yes Hx Fractures: No Hx Osteoporosis: No Hx Rheumatoid Arthritis: No - GASTROINTESTINAL Hx Crohn's Disease: No Hx Diverticulitis: No Hx Gall Bladder Disease: No Hx Gastritis: No Hx Pancreatitis: No - GENITOURINARY/GYNECOLOGICAL Hx Sexually Transmitted Disorders: No - PSYCHIATRIC Hx Anxiety: No Hx Bipolar Disorder: No Hx Depression: No Hx Paranoia: No Hx Post Traumatic Stress Disorder: No Hx Schizophrenia: No - SURGICAL HISTORY Hx Appendectomy: No Hx Carotid Endarterectomy: No Hx Cholecystectomy: No Hx Coronary Artery Bypass Graft: No Hx Coronary Stent: No Hx Tonsillectomy: No - ANESTHESIA Hx Anesthesia: Yes Hx Anesthesia Reactions: No Hx Malignant Hyperthermia: No Meds Allergies/Adverse Reactions: Allergies Allergy/AdvReac Type Severity Reaction Status Date / Time No Known Allergies Allergy Verified 06/06/14 04:18 - Medications Medications: Current Medications Acetaminophen (Tylenol 325mg Tab) 650 mg PO Q6 PRN PRN Reason: Headache Last Admin: 11/20/18 23:21 Dose: 650 mg Enoxaparin Sodium (Lovenox) 40 mg SC DAILY [facility]; Protocol Diltiazem HCl 125 mg/ Sodium (Chloride) 125 mls @ 10 mls/hr IV .[id number]; Protocol Stop: 11/21/18 18:44 Lisinopril (Zestril) 10 mg PO DAILY [facility] Metoprolol Succinate (Toprol Xl) 50 mg PO DAILY [facility] Last Admin: 11/20/18 23:22 Dose: 50 mg Results - Vital Signs Recent Vital Signs: Last Vital Signs Temp 98.9 F 11/21/18 05:25 Pulse 140 H 11/21/18 06:45 Resp 19 11/21/18 06:45 BP 155/88 H 11/21/18 06:45 Pulse Ox 96 11/21/18 06:45 - Labs Result Diagrams: 11/21/18 04:30 11/21/18 04:30 Labs: Laboratory Results - last 24 hr 11/20/18 11/20/18 11/20/18 15:40 16:40 16:40 WBC 7.4 RBC 4.36 L Hgb 14.1 Hct 42.2 MCV 96.7 H MCH 32.2 H MCHC 33.3 RDW 13.4 Plt Count 197 MPV 8.4 Neut % (Auto) 80.8 H Lymph % (Auto) 11.8 L [place] % (Auto) 6.3 Eos % (Auto) 0.3 Baso % (Auto) 0.8 Neut # (Auto) 6.0 Lymph # (Auto) 0.9 L [place] # (Auto) 0.5 Eos # (Auto) 0.0 Baso # (Auto) 0.1 PT INR APTT Sodium 142 Potassium 3.5 L Chloride 105 Carbon Dioxide 24 Anion Gap 17 BUN 22 H Creatinine 1.4 Est GFR ( Amer) 60 Est GFR (Non-Af Amer) 50 POC Glucose (mg/dL) 95 Random Glucose 95 Calcium 9.4 Total Bilirubin AST ALT Alkaline Phosphatase Troponin I 0.0760 NT-Pro-B Natriuret Pep 3040 H Total Protein Albumin Globulin Albumin/Globulin Ratio TSH 3rd Generation Blood Type Blood Type Confirm Antibody Screen BBK History Checked 11/20/18 11/20/18 11/20/18 16:40 16:40 17:24 WBC RBC Hgb Hct MCV MCH MCHC RDW Plt Count MPV Neut % (Auto) Lymph % (Auto) [place] % (Auto) Eos % (Auto) Baso % (Auto) Neut # (Auto) Lymph # (Auto) [place] # (Auto) Eos # (Auto) Baso # (Auto) PT 14.7 H INR 1.3 APTT 30.3 Sodium Potassium Chloride Carbon Dioxide Anion Gap BUN Creatinine Est GFR ( Amer) Est GFR (Non-Af Amer) POC Glucose (mg/dL) Random Glucose Calcium Total Bilirubin AST ALT Alkaline Phosphatase Troponin I NT-Pro-B Natriuret Pep Total Protein Albumin Globulin Albumin/Globulin Ratio TSH 3rd Generation Blood Type O POSITIVE Blood Type Confirm O POSITIVE Antibody Screen Negative BBK History Checked No verified bt 11/21/18 11/21/18 11/21/18 00:00 04:30 04:30 WBC 8.0 RBC 4.27 L Hgb 13.9 Hct 41.2 MCV 96.5 H MCH 32.7 H MCHC 33.8 RDW 13.6 Plt Count 202 MPV Neut % (Auto) Lymph % (Auto) [place] % (Auto) Eos % (Auto) Baso % (Auto) Neut # (Auto) Lymph # (Auto) [place] # (Auto) Eos # (Auto) Baso # (Auto) PT INR APTT Sodium 140 Potassium 3.2 L Chloride 102 Carbon Dioxide 23 Anion Gap 18 BUN 20 Creatinine 1.1 Est GFR ( Amer) > 60 Est GFR (Non-Af Amer) > 60 POC Glucose (mg/dL) Random Glucose 101 Calcium 9.1 Total Bilirubin 1.1 AST 42 ALT 44 Alkaline Phosphatase 90 Troponin I 0.1750 H* NT-Pro-B Natriuret Pep Total Protein 7.2 Albumin 3.9 Globulin 3.3 Albumin/Globulin Ratio 1.2 TSH 3rd Generation 1.66 Blood Type Blood Type Confirm Antibody Screen BBK History Checked
--- NOTE | 2018-11-21 07:33 | CP.PCM.CON ---
History of Present Illness - History of Present Illness History of Present Illness: patient seen 11/21/18 0733 I was asked to see patient by Dr Franco Patient is a 73 year old male with HTN, hypercholesterolemia atrial fibrilliaton who presents after a fall. The patient had a workup one month ago for atrial fibrillation. He was started on AV greyson jami and anticoagulation. LV function is normal by echocardiogram. The patient has not been complainst with his medication. He presents s/p fall. He is in atrial fibrillation with rapid ventricular response. Review of Systems - Constitutional Constitutional: absent: As Per HPI, Anorexia, Chills, Daytime Sleepiness, Excessive Sweating, Fatigue, Fever, Frequent Falls, Headache, Increased Aicha etite, Lethargy, Malaise, Night Sweats, Snoring, Sleep Apnea, Weight Gain, Weight Loss, Weakness, Other - EENT Eyes: absent: As Per HPI, Blind Spots, Blurred Vision, Change in Vision, Decreased Night Vision, Diplopia, Discharge, Dry Eye, Exophthalmos, Floaters, Irritation, Itchy Eyes, Loss of Peripheral Vision, Pain, Photophobia, Requires Corrective Lenses, Sees Flashes, Spots in Vision, Tunnel Vision, Other Visual Disturbances, Loss of Vision, Other Ears: absent: As Per HPI, Decreased Hearing, Ear Discharge, Ear Pain, Tinnitus, Abnormal Hearing, Disequilibrium, Dizziness, Other Nose/Mouth/Throat: absent: As Per HPI, Epistaxis, Nasal Congestion, Nasal Discharge, Nasal Obstruction, Nasal Trauma, Nose Pain, Post Nasal Drip, Sinus Pain, Sinus Pressure, Bleeding Gums, Change in Voice, Dental Pain, Dry Mouth, Dysphagia, Halitosis, Hoarsness, Lip Swelling, Mouth Lesions, Mouth Pain, Odynophagia, Sore Throat, Throat Swelling, Tongue Swelling, Facial Pain, Neck Pain, Neck Mass, Other - Cardiovascular Cardiovascular: Rapid Heart Rate - Respiratory Respiratory: absent: As Per HPI, Cough, Dyspnea, Hemoptysis, Dyspnea on Exerti on, Wheezing, Snoring, Stridor, Pain on Inspiration, Chest Congestion, Excessive Mucous Production, Change in Mucous Color, Pain with Coughing, Other - Gastrointestinal Gastrointestinal: absent: As Per HPI, Abdominal Pain, Belching, Bloating, Change in Bowel Habits, Change in Stool Character, Coffee Ground Emesis, Constipation, Cramping, Diarrhea, Dyspepsia, Dysphagia, Early Satiety, Excessive Flatus, Fecal Incontinence, Heartburn, Hematemesis, Hematochezia, Loose Stools, Melena, Nausea, Odynophagia, Temesmus, Vomiting, Other - Genitourinary Genitourinary: absent: As Per HPI, Change in Urinary Stream, Difficulty Ur inating, Dysuria, Flank Pain, Hematuria, Pyuria, Nocturia, Urinary Incontinence, Urinary Frequency, Urinary Hesitance, Urinary Urgency, Voiding Freq/Small Amts, Freq UTI, Hx Renal/Bladder Calculi, Hx /Renal Surgery, Bladder Distension, Other - Musculoskeletal Musculoskeletal: absent: As Per HPI, Abnormal Gait, Arthralgias, Atrophy, Back Pain, Deformity, Joint Swelling, Limited Range of Motion, Loss of Height, Muscle Cramps, Muscle Weakness, Myalgias, Neck Pain, Numbness, Radiating Pain into Limb, Stiffness, Tingling, Other - Integumentary Integumentary: absent: As Per HPI, Acne, Alopecia, Bleeding Lesions, Change in Hair, Change in Nails, Change in Pigmentation, Changing Lesions, Dry Skin, Erythema, Furuncle, Hirsutism, Lesions, New Lesions, Non-Healing Lesions, Photosensitivity, Pruritus, Rash, Skin Pain, Skin Ulcer, Sores, Striae, Swelling, Unusual Bruising, Wounds, Jaundice, Other - Neurological Neurological: absent: As Per HPI, Abnormal Gait, Abnormal Hearing, Abnormal Movements, Abnormal Speech, Behavioral Changes, Burning Sensations, Confusion, Convulsions, Disequilibrium, Dizziness, Numbness, Focal Weakness, Frequent Falls, Headaches, Lack of Coordination, Loss of Vision, Memory Loss, Paresthesias, Radicular Pain, Restless Legs, Sensory Deficit, Syncope, Tingling, Tremor, Vertigo, Weakness, Other Visual Disturbances, Other - Psychiatric Psychiatric: absent: As Per HPI, Abnormal Sleep Pattern, Anhedonia, Anxiety, Auditory Hallucinations, Behavioral Changes, Change in Appetite, Change in Libido, Confusion, Depression, Difficulty Concentrating, Hallucinations, Homicidal Ideation, Hopelessness, Irritability, Memory Loss, Mood Swings, Panic Attacks, Paranoia, Suicidal Ideation, Visual Hallucinations, Tactile Hanks llucinations, Other - Endocrine Endocrine: absent: As Per HPI, Change in Body Appearance, Change in Libido, Cold Intolorance, Deepening of Voice, Excessive Sweating, Fatigue, Flushing, Heat Intolorance, Increase in Ring/Shoe/Hat Size, Palpitations, Polydipsia, Polyphagia, Polyuria, Other - Hematologic/Lymphatic Hematologic: absent: As Per HPI, Easy Bleeding, Easy Bruising, Lymphadenopathy, Other Past Patient History - Infectious Disease Hx of Infectious Diseases: None - Tetanus Immunizations Tetanus Immunization: Unknown - Past Medical History & Family History Past Medical History?: Yes - Past Social History Smoking Status: Never Smoked - CARDIAC Hx Atrial Fibrillation: No Hx Cardia Arrhythmia: No Hx Congestive Heart Failure: No Hx Hypercholesterolemia: Yes Hx Hypertension: Yes Hx Mitral Valve Prolapse: No Hx Pacemaker: No Hx Peripheral Edema: No - PULMONARY Hx Asthma: No Hx Bronchitis: No Hx Chronic Obstructive Pulmonary Disease (COPD): No Hx Emphysema: No Hx Pneumonia: No Hx Pulmonary Embolism: No Hx Sleep Apnea: No - NEUROLOGICAL Hx Alzheimer's Disease: No Hx Dementia: No Hx Migraine: No Hx Multiple Sclerosis: No Hx Parkinson's Disease: No Hx Seizures: No Hx Transient Ischemic Attacks (TIA): No - HEENT Hx HEENT Problems: No Hx Blind: No Hx Cataracts: No Hx Deafness: No Hx Difficulty Chewing: No Hx Epistaxis: No Hx Glaucoma: No Hx Macular Degeneration: No - RENAL Hx Chronic Kidney Disease: No - ENDOCRINE/METABOLIC Hx Hyperthyroidism: No Hx Hypothyroidism: No - HEMATOLOGICAL/ONCOLOGICAL Hx Anemia: No Hx Human Immunodeficiency Virus (HIV): No Hx Sickle Cell Disease: No - INTEGUMENTARY Hx Dermatological Problems: No Hx Basil Cell: No Hx Pitts: No Hx Cellulitis: No Hx Eczema: No Hx Melanoma: No Hx Psoriasis: No Hx Squamous Cell: No Other/Comment: Skin Ca with removal of lesion from left upper arm - MUSCULOSKELETAL/RHEUMATOLOGICAL Hx Arthritis: No Hx Falls: Yes Hx Fractures: No Hx Osteoporosis: No Hx Rheumatoid Arthritis: No - GASTROINTESTINAL Hx Crohn's Disease: No Hx Diverticulitis: No Hx Gall Bladder Disease: No Hx Gastritis: No Hx Pancreatitis: No - GENITOURINARY/GYNECOLOGICAL Hx Sexually Transmitted Disorders: No - PSYCHIATRIC Hx Anxiety: No Hx Bipolar Disorder: No Hx Depression: No Hx Paranoia: No Hx Post Traumatic Stress Disorder: No Hx Schizophrenia: No - SURGICAL HISTORY Hx Appendectomy: No Hx Carotid Endarterectomy: No Hx Cholecystectomy: No Hx Coronary Artery Bypass Graft: No Hx Coronary Stent: No Hx Tonsillectomy: No - ANESTHESIA Hx Anesthesia: Yes Hx Anesthesia Reactions: No Hx Malignant Hyperthermia: No Meds Allergies/Adverse Reactions: Allergies Allergy/AdvReac Type Severity Reaction Status Date / Time No Known Allergies Allergy Verified 06/06/14 04:18 - Medications Medications: Current Medications Acetaminophen (Tylenol 325mg Tab) 650 mg PO Q6 PRN PRN Reason: Headache Last Admin: 11/20/18 23:21 Dose: 650 mg Enoxaparin Sodium (Lovenox) 40 mg SC DAILY [facility]; Protocol Diltiazem HCl 125 mg/ Sodium (Chloride) 125 mls @ 10 mls/hr IV .[id number]; Protocol Stop: 11/21/18 18:44 Lisinopril (Zestril) 10 mg PO DAILY [facility] Metoprolol Succinate (Toprol Xl) 50 mg PO DAILY [facility] Last Admin: 11/20/18 23:22 Dose: 50 mg Physical Exam - Constitutional Appears: Non-toxic - Head Exam Head Exam: NORMAL INSPECTION - Eye Exam Eye Exam: Normal appearance - ENT Exam ENT Exam: Mucous Membranes Moist - Neck Exam Neck exam: Positive for: Full Rom - Respiratory Exam Respiratory Exam: Decreased Breath Sounds - Cardiovascular Exam Cardiovascular Exam: Tachycardia, Irregular Rhythm - GI/Abdominal Exam GI & Abdominal Exam: Normal Bowel Sounds - Rectal Exam Rectal Exam: Deferred - Extremities Exam Extremities exam: Negative for: pedal edema - Back Exam Back exam: NORMAL INSPECTION - Neurological Exam Neurological exam: Alert, Oriented x3 - Psychiatric Exam Psychiatric exam: Normal Affect - Skin Skin Exam: Normal Color Results - Vital Signs Recent Vital Signs: Last Vital Signs Temp 98.9 F 11/21/18 05:25 Pulse 140 H 11/21/18 06:45 Resp 19 11/21/18 06:45 BP 155/88 H 11/21/18 06:45 Pulse Ox 96 11/21/18 06:45 - Labs Result Diagrams: 11/21/18 04:30 11/21/18 04:30 Labs: Laboratory Results - last 24 hr 11/20/18 11/20/18 11/20/18 15:40 16:40 16:40 WBC 7.4 RBC 4.36 L Hgb 14.1 Hct 42.2 MCV 96.7 H MCH 32.2 H MCHC 33.3 RDW 13.4 Plt Count 197 MPV 8.4 Neut % (Auto) 80.8 H Lymph % (Auto) 11.8 L [place] % (Auto) 6.3 Eos % (Auto) 0.3 Baso % (Auto) 0.8 Neut # (Auto) 6.0 Lymph # (Auto) 0.9 L [place] # (Auto) 0.5 Eos # (Auto) 0.0 Baso # (Auto) 0.1 PT INR APTT Sodium 142 Potassium 3.5 L Chloride 105 Carbon Dioxide 24 Anion Gap 17 BUN 22 H Creatinine 1.4 Est GFR ( Amer) 60 Est GFR (Non-Af Amer) 50 POC Glucose (mg/dL) 95 Random Glucose 95 Calcium 9.4 Total Bilirubin AST ALT Alkaline Phosphatase Troponin I 0.0760 NT-Pro-B Natriuret Pep 3040 H Total Protein Albumin Globulin Albumin/Globulin Ratio TSH 3rd Generation Blood Type Blood Type Confirm Antibody Screen BBK History Checked 11/20/18 11/20/18 11/20/18 16:40 16:40 17:24 WBC RBC Hgb Hct MCV MCH MCHC RDW Plt Count MPV Neut % (Auto) Lymph % (Auto) [place] % (Auto) Eos % (Auto) Baso % (Auto) Neut # (Auto) Lymph # (Auto) [place] # (Auto) Eos # (Auto) Baso # (Auto) PT 14.7 H INR 1.3 APTT 30.3 Sodium Potassium Chloride Carbon Dioxide Anion Gap BUN Creatinine Est GFR ( Amer) Est GFR (Non-Af Amer) POC Glucose (mg/dL) Random Glucose Calcium Total Bilirubin AST ALT Alkaline Phosphatase Troponin I NT-Pro-B Natriuret Pep Total Protein Albumin Globulin Albumin/Globulin Ratio [facility] 3rd Generation Blood Type O POSITIVE Blood Type Confirm O POSITIVE Antibody Screen Negative BBK History Checked No verified bt 11/21/18 11/21/18 11/21/18 00:00 04:30 04:30 WBC 8.0 RBC 4.27 L Hgb 13.9 Hct 41.2 MCV 96.5 H MCH 32.7 H MCHC 33.8 RDW 13.6 Plt Count 202 MPV Neut % (Auto) Lymph % (Auto) [place] % (Auto) Eos % (Auto) Baso % (Auto) Neut # (Auto) Lymph # (Auto) [place] # (Auto) Eos # (Auto) Baso # (Auto) PT INR APTT Sodium 140 Potassium 3.2 L Chloride 102 Carbon Dioxide 23 Anion Gap 18 BUN 20 Creatinine 1.1 Est GFR ( Amer) > 60 Est GFR (Non-Af Amer) > 60 POC Glucose (mg/dL) Random Glucose 101 Calcium 9.1 Total Bilirubin 1.1 AST 42 ALT 44 Alkaline Phosphatase 90 Troponin I 0.1750 H* NT-Pro-B Natriuret Pep Total Protein 7.2 Albumin 3.9 Globulin 3.3 Albumin/Globulin Ratio 1.2 TSH 3rd Generation 1.66 Blood Type Blood Type Confirm Antibody Screen BBK History Checked - EKG Data EKG Interpreted by: Myself Assessment & Plan (1) Atrial fibrillation with RVR Assessment and Plan: patient will need improved rate control. mirna gentile. I discussed the importance of medication compliance. Given falls he may not be the ideal candidate for anticoagulation. Status: Acute (2) Hypertension Assessment and Plan: will use cardizem and metoprolol for blood pressure control Status: Chronic Priority: High
[2018-11-21] MEDS: Metoprolol Succinate 50 mg XL Tab PO SCH (08:12)
[2018-11-21 08:13] VITALS: BP 142/95; PULSE 73
[2018-11-21 08:18] VITALS: RESP 20; TEMP 100.4
[2018-11-21] MEDS ORDERED: Enoxaparin 40 mg Syringe SC SCH (09:00)
[2018-11-21 18:38] VITALS: O2SAT 100
--- NOTE | 2018-11-21 20:08 | CARD ---
APPROVED REPORT Date of service: 11/20/2018 EKG Measurement Heart [id number] <Conclusion> Atrial fibrillation with rapid ventricular response Nonspecific ST and T wave abnormality Abnormal ECG
--- NOTE | 2018-11-22 08:25 | CP.PCM.HP ---
Past Patient History - Infectious Disease Hx of Infectious Diseases: None - Tetanus Immunizations Tetanus Immunization: Unknown - Past Medical History & Family History Past Medical History?: Yes - Past Social History Smoking Status: Never Smoked - CARDIAC Hx Atrial Fibrillation: No Hx Cardia Arrhythmia: No Hx Congestive Heart Failure: No Hx Hypercholesterolemia: Yes Hx Hypertension: Yes Hx Mitral Valve Prolapse: No Hx Pacemaker: No Hx Peripheral Edema: No - PULMONARY Hx Asthma: No Hx Bronchitis: No Hx Chronic Obstructive Pulmonary Disease (COPD): No Hx Emphysema: No Hx Pneumonia: No Hx Pulmonary Embolism: No Hx Sleep Apnea: No - NEUROLOGICAL Hx Alzheimer's Disease: No Hx Dementia: No Hx Migraine: No Hx Multiple Sclerosis: No Hx Parkinson's Disease: No Hx Seizures: No Hx Transient Ischemic Attacks (TIA): No - HEENT Hx HEENT Problems: No Hx Blind: No Hx Cataracts: No Hx Deafness: No Hx Difficulty Chewing: No Hx Epistaxis: No Hx Glaucoma: No Hx Macular Degeneration: No - RENAL Hx Chronic Kidney Disease: No Hx Kidney Stones: No - ENDOCRINE/METABOLIC Hx Hyperthyroidism: No Hx Hypothyroidism: No - HEMATOLOGICAL/ONCOLOGICAL Hx Anemia: No Hx Human Immunodeficiency Virus (HIV): No Hx Sickle Cell Disease: No - INTEGUMENTARY Hx Dermatological Problems: No Hx Basil Cell: No Hx Pitts: No Hx Cellulitis: No Hx Eczema: No Hx Melanoma: No Hx Psoriasis: No Hx Squamous Cell: No Other/Comment: Skin Ca with removal of lesion from left upper arm - MUSCULOSKELETAL/RHEUMATOLOGICAL Hx Arthritis: No Hx Fractures: No Hx Osteoporosis: No Hx Rheumatoid Arthritis: No - GASTROINTESTINAL Hx Crohn's Disease: No Hx Diverticulitis: No Hx Gall Bladder Disease: No Hx Gastritis: No Hx Pancreatitis: No - GENITOURINARY/GYNECOLOGICAL Hx Sexually Transmitted Disorders: No - PSYCHIATRIC Hx Anxiety: No Hx Bipolar Disorder: No Hx Depression: No Hx Paranoia: No Hx Post Traumatic Stress Disorder: No Hx Schizophrenia: No - SURGICAL HISTORY Hx Appendectomy: No Hx Carotid Endarterectomy: No Hx Cholecystectomy: No Hx Coronary Artery Bypass Graft: No Hx Coronary Stent: No Hx Tonsillectomy: No - ANESTHESIA Hx Anesthesia: Yes Hx Anesthesia Reactions: No Hx Malignant Hyperthermia: No Meds Allergies/Adverse Reactions: Allergies Allergy/AdvReac Type Severity Reaction Status Date / Time No Known Allergies Allergy Verified 06/06/14 04:18 Results - Vital Signs Recent Vital Signs: Last Vital Signs Temp 100.4 F H 11/21/18 08:18 Pulse 73 11/21/18 09:00 Resp 20 11/21/18 08:18 BP 142/95 H 11/21/18 08:18 Pulse Ox 100 11/21/18 18:38 - Labs Result Diagrams: 11/21/18 04:30 11/21/18 04:30
--- NOTE | 2018-11-22 08:26 | CP.PCM.DIS ---
Provider - Provider Date of Admission: 11/20/18 18:05 Attending physician: Cookie Franco MD Consults: 11/20/18 17:49 Cardiology Consult Stat Comment: Consulting Provider: Jalen Farnsworth Consulting Physician: Jalen Farnsworth Reason for Consult: uncontrolled Afib Time Spent in preparation of Discharge (in minutes): 10 Hospital Course - Lab Results Lab Results: Most Recent Lab Values WBC 8.0 K/uL (4.8-10.8) 11/21/18 04:30 RBC 4.27 Mil/uL (4.40-5.90) L 11/21/18 04:30 Hgb 13.9 g/dL (12.0-18.0) 11/21/18 04:30 Hct 41.2 % (35.0-51.0) 11/21/18 04:30 MCV 96.5 fl (80.0-94.0) H 11/21/18 04:30 MCH 32.7 pg (27.0-31.0) H 11/21/18 04:30 MCHC 33.8 g/dL (33.0-37.0) 11/21/18 04:30 RDW 13.6 % (11.5-14.5) 11/21/18 04:30 Plt Count 202 K/uL (130-400) 11/21/18 04:30 MPV 8.4 fl (7.2-11.7) 11/20/18 16:40 Neut % (Auto) 80.8 % (50.0-75.0) H 11/20/18 16:40 Lymph % (Auto) 11.8 % (20.0-40.0) L 11/20/18 16:40 [place] % (Auto) 6.3 % (0.0-10.0) 11/20/18 16:40 Eos % (Auto) 0.3 % (0.0-4.0) 11/20/18 16:40 Baso % (Auto) 0.8 % (0.0-2.0) 11/20/18 16:40 Neut # (Auto) 6.0 K/uL (1.8-7.0) 11/20/18 16:40 Lymph # (Auto) 0.9 K/uL (1.0-4.3) L 11/20/18 16:40 [place] # (Auto) 0.5 K/uL (0.0-0.8) 11/20/18 16:40 Eos # (Auto) 0.0 K/uL (0.0-0.7) 11/20/18 16:40 Baso # (Auto) 0.1 K/uL (0.0-0.2) 11/20/18 16:40 PT 14.7 Seconds (9.8-13.1) H 11/20/18 16:40 INR 1.3 11/20/18 16:40 APTT 30.3 Seconds (25.6-37.1) 11/20/18 16:40 Sodium 140 mmol/l (132-148) 11/21/18 04:30 Potassium 3.2 MMOL/L (3.6-5.0) L 11/21/18 04:30 Chloride 102 mmol/L (98-107) 11/21/18 04:30 Carbon Dioxide 23 mmol/L (22-30) 11/21/18 04:30 Anion Gap 18 (10-20) 11/21/18 04:30 BUN 20 mg/dl (9-20) 11/21/18 04:30 Creatinine 1.1 mg/dl (0.8-1.5) 11/21/18 04:30 Est GFR ( Amer) > 60 11/21/18 04:30 Est GFR (Non-Af Amer) > 60 11/21/18 04:30 POC Glucose (mg/dL) 95 mg/dL (65-110) 11/20/18 15:40 Random Glucose 101 mg/dL (75-110) 11/21/18 04:30 Calcium 9.1 mg/dL (8.4-10.2) 11/21/18 04:30 Total Bilirubin 1.1 mg/dl (0.2-1.3) 11/21/18 04:30 AST 42 U/L (17-59) 11/21/18 04:30 ALT 44 U/L (21-72) 11/21/18 04:30 Alkaline Phosphatase 90 U/L (38-126) 11/21/18 04:30 Troponin I 0.1750 ng/mL (0.00-0.120) H* 11/21/18 00:00 NT-Pro-B Natriuret Pep 3040 pg/ml (0-900) H 11/20/18 16:40 Total Protein 7.2 G/DL (6.3-8.2) 11/21/18 04:30 Albumin 3.9 g/dL (3.5-5.0) 11/21/18 04:30 Globulin 3.3 gm/dL (2.2-3.9) 11/21/18 04:30 Albumin/Globulin Ratio 1.2 (1.0-2.1) 11/21/18 04:30 TSH 3rd Generation 1.66 mIU/ML (0.46-4.68) 11/21/18 04:30 Blood Type O POSITIVE 11/20/18 16:40 Blood Type Confirm O POSITIVE 11/20/18 17:24 Antibody Screen Negative 11/20/18 16:40 BBK History Checked No verified bt 11/20/18 16:40 Discharge Exam - Head Exam Head Exam: ATRAUMATIC, NORMOCEPHALIC Discharge Plan - Follow Up Plan Condition: STABLE Disposition: AGAINST MEDICAL ADVICE
== END 2018-11-21 10:00 | disposition left against medical advice (07) | DRG 310 ==
LOC: H.ER 15:20 → H.ERHOLD 18:05 → H.TEL 21:27
PROVIDERS: ADMIT Internal Medicine; ATTEND Internal Medicine
DX: I48.91 Unspecified atrial fibrillation (principal); I10 Essential (primary) hypertension; E78.00 Pure hypercholesterolemia, unspecified; Z91.14 Patient's other noncompliance with medication regimen

== ENCOUNTER 2018-12-15 10:20 | Inpatient (IN) | payer MEDICARE ==
--- NOTE | 2018-12-15 10:45 | ED PDOC ---
HPI: SOB/CHF/COPD Time Seen by Provider: 12/15/18 10:32 Chief Complaint (Nursing): Chest Pain Chief Complaint (Provider): SOB Additional Complaint(s): Pt BIBA with c/o SOB and inability to sleep X 3 weeks, was given 20 mg and 25 mg Cardizem boluses via EMS for rapid a fib (HR 150-180s), HR decreased to 90s after medication. Pt reports CHAMBERLAIN and palpitations, no chest pain. Past Medical History Reviewed: Historical Data, Nursing Documentation, Vital Signs - Medical History PMH: Atrial Fibrillation, HTN, Hypercholesterolemia Denies: Dementia, Depression, Diverticulitis, Emphysema, Fractures, Gastritis, Gall Bladder Disease, Post Traumatic Stress Disorder, Pulmonary Embolism, Chronic Kidney Disease, Rheumatoid Arthritis, Schizophrenia, Seizures, Sickle Cell Disease, Sexually Transmitted Disease, Sleep Apnea, TIA - Surgical History Surgical History: Denies: Pacemaker, Tonsillectomy - Family History Family History: States: Unknown Family Hx - Living Arrangements Living Arrangements: With Friends/Others - Social History Current smoker - smoking cessation education provided: No Alcohol: None - Home Medications Home Medications: Ambulatory Orders Medication Instructions Recorded Metoprolol Succinate XL [Toprol XL] 50 mg PO BID tab 10/30/18 [id number] CD [Cardizem CD] 300 mg PO DAILY 30 Days cap 10/30/18 Lisinopril [Zestril] 10 mg PO DAILY 11/20/18 - Allergies Allergies/Adverse Reactions: Allergies Allergy/AdvReac Type Severity Reaction Status Date / Time No Known Allergies Allergy Verified 06/06/14 04:18 Review of Systems Constitutional: Negative for: Fever, Chills Cardiovascular: Positive for: Palpitations. Negative for: Chest Pain Respiratory: Positive for: Shortness of Breath. Negative for: Cough Gastrointestinal: Negative for: Abdominal Pain Neurological: Negative for: Weakness, Numbness, Headache, Dizziness Physical Exam - Reviewed Nursing Documentation Reviewed: Yes Vital Signs Reviewed: Yes - Physical Exam Appears: Positive for: No Acute Distress Head Exam: Positive for: ATRAUMATIC, NORMAL INSPECTION Skin: Positive for: Normal Color, Warm, Dry Eye Exam: Positive for: Normal appearance, EOMI, PERRL Neck: Positive for: Normal Cardiovascular/Chest: Positive for: Tachycardia, Irregularly Irregular Respiratory: Positive for: Crackles (Bibasilar). Negative for: Rhonchi, Wheezing, Respiratory Distress Gastrointestinal/Abdominal: Positive for: Normal Exam Extremity: Positive for: Swelling (+3 pitting bilaterally) Neurological/Psych: Positive for: Awake, Alert, Oriented - Laboratory Results Result Diagrams: 12/15/18 10:45 12/15/18 10:45 - ECG Interpretation Of ECG: A fib @ 106, TWI V5-V6. - Critical Care Total Time (In Min): 45 Medical Decision Making Medical Decision Makin yo male with rapid a fib and SOB. - labs - EKG - CXR - Lasix Accession No. : [id number] Patient Name / ID : ASHISH Guteirrez / [id number] Exam Date : 12/15/2018 10:31:51 ( Approved ) Study Comment : Sex / Age : M / [id number] Creator : Kaycee Chirinos Dictator : Kaycee Chirinos House Wirer : Basket Braider : Kaycee Chirinos Approver2 : Report Date : 12/15/2018 11:15:42 My Comment : * Date of service: 12/15/2018 HISTORY: SOB COMPARISON: 11/20/2018 TECHNIQUE: 1 view obtained. FINDINGS: LUNGS: Interval increase bibasilar opacities right greater than left. PLEURA: Interval increased bilateral pleural effusions right greater than left. No pneumothorax appreciated CARDIOVASCULAR: There is presence of aortic atherosclerotic calcification on x-ray. Cardiomegaly-similar probable concomitant pulmonary venous congestion-also appears increased since prior exam. OSSEOUS STRUCTURES: Thoracic spondylosis. Right shoulder arthrosis VISUALIZED UPPER ABDOMEN: Normal. OTHER FINDINGS: None. IMPRESSION: Interval increased bibasilar pleural effusions with inferred bibasilar compressive atelectasis. Concomitant infiltrates are possible. Cardiomegaly and probable concomitant pulmonary venous congestion. 12:50 Pt HR 130s, will initiate Cardizem drip. Disposition - Clinical Impression Clinical Impression: Atrial fibrillation with RVR, CHF (congestive heart failure) - Patient ED Disposition Is Patient to be Admitted: Yes - Disposition Referrals: Non [facility] Provider, [Primary Care Provider] - Disposition Time: 12:55 Condition: GUARDED Forms: [facility] [facility] (Mal[place]ian) - Pt Status Changed To: Hospital Disposition Of: Inpatient - Admit Certification Admit to Inpatient:: After my assessment, the patient will require hospitalization for at least two midnights. This is because of the severity of symptoms shown, intensity of services needed, and/or the medical risk in this patient being treated as an outpatient. - POA Present On Arrival: None
[2018-12-15 11:00] LABS: INR 1.4; PROTHROMBIN TIME 15.6 Seconds (9.8-13.1)
[2018-12-15 11:03] LABS: PARTIAL THROMBOPLASTIN TIME 32.2 Seconds (25.6-37.1)
[2018-12-15 11:05] LABS: BASO # 0.1 K/uL (0.0-0.2); BASO % 0.8 % (0.0-2.0); EOS % 0.1 % (0.0-4.0); LYMPH # 0.5 K/uL (1.0-4.3); LYMPH % 7.3 % (20.0-40.0); MEAN CELL VOLUME 97.6 fl (80.0-94.0); MEAN CORPUSCULAR HEMOGLOBIN 32.3 pg (27.0-31.0); MEAN CORPUSCULAR HGB CONC 33.1 g/dL (33.0-37.0); MEAN PLATELET VOLUME 8.5 fl (7.2-11.7); MONO # 0.5 K/uL (0.0-0.8); MONO % 6.8 % (0.0-10.0); NEUT # 6.3 K/uL (1.8-7.0); PLATELET COUNT 227 K/uL (130-400); RBC 4.33 Mil/uL (4.40-5.90); RED CELL DISTRIBUTION WIDTH 14.1 % (11.5-14.5); WHITE BLOOD COUNT 7.4 K/uL (4.8-10.8)
[2018-12-15 11:18] LABS: TROPONIN I 0.05 ng/mL (0.00-0.120)
--- NOTE | 2018-12-15 11:19 | RAD ---
Date of service: 12/15/2018 HISTORY: SOB COMPARISON: 11/20/2018 TECHNIQUE: 1 view obtained. FINDINGS: LUNGS: Interval increase bibasilar opacities right greater than left. PLEURA: Interval increased bilateral pleural effusions right greater than left. No pneumothorax appreciated CARDIOVASCULAR: There is presence of aortic atherosclerotic calcification on x-ray. Cardiomegaly-similar probable concomitant pulmonary venous congestion-also appears increased since prior exam. OSSEOUS STRUCTURES: Thoracic spondylosis. Right shoulder arthrosis VISUALIZED UPPER ABDOMEN: Normal. OTHER FINDINGS: None. IMPRESSION: Interval increased bibasilar pleural effusions with inferred bibasilar compressive atelectasis. Concomitant infiltrates are possible. Cardiomegaly and probable concomitant pulmonary venous congestion.
[2018-12-15 11:33] LABS: ALBUMIN 3.7 g/dL (3.5-5.0); CALCIUM 10.1 mg/dL (8.4-10.2)
[2018-12-15 11:34] LABS: ALB/GLOB RATIO 1.1 (1.0-2.1)
[2018-12-15 13:33] LABS: URINE BACTERIA RARE (<OCC); URINE BILIRUBIN NEGATIVE (NEGATIVE); URINE BLOOD MODERATE (NEGATIVE); URINE CLARITY CLEAR (Clear); URINE COLOR AMBER (YELLOW); URINE GLUCOSE (UA) NEG (NEGATIVE); URINE HYALINE CAST 0-2 /hpf (0-2); URINE LEUKOCYTE ESTERASE NEG Leu/uL (Negative); URINE PROTEIN 100 mg/dL (NEGATIVE)
[2018-12-15 13:44] LABS: LYMPHOCYTE 5 % (20-50); MONOCYTE 6 % (0-10); NEUTROPHIL 89 % (42-75); PLATELET ESTIMATE NORMAL (NORMAL); TOTAL CELLS COUNTED 100
[2018-12-15] MEDS ORDERED: Metoprolol Succinate 50 mg XL Tab PO SCH (17:00)
[2018-12-15 18:12] VITALS: BMI 31.1
--- NOTE | 2018-12-15 18:44 | CP.PCM.CON ---
History of Present Illness - History of Present Illness History of Present Illness: 73 YO MALE PRESENTS WITH CC OF COUGH AND SOB FOR 1 WEEK. PT STATES THAT HE HAS HAD A DRY COUGH FOR SEVERAL WEEKS, OVER THE PAST WEEK HE HAS NOTICED MORE SOB AND CHAMBERLAIN. HE ALSO ADMITS TO FEELING ANXIOUS, HAVING OCCASIONAL PALPITATIONS W ITHOUT DIZZINESS OR LH. PT STATES THAT HE HAS CP USUALLY AFTER COUGHING. PT DENIES TOBACCO USE HISTORY, DRUG USE. PT RECENTLY ADMITTED WITH AFIB WITH RVR, TREATED WITH RATE CONTROLLING AGENTS. HE IS REPORTEDLY NON-COMPLIANT WITH MEDICAL THERAPY. CURRENTLY PT IS IN AFIB WITH RVR 120-130. ECHO DONE 6 WEEKS AGO SHOWS MILDLY ENLARGED LA AND NML EF. PT WAS ADMITTED IN 2013 FOR CP AND WAS RECOMMENDED TO FU FOR STRESS TEST HOWEVER NO STRESS TEST DONE. Review of Systems - Constitutional Constitutional: As Per HPI, Fatigue. absent: Anorexia, Chills, Daytime Sleepiness, Excessive Sweating, Fever, Frequent Falls, Headache, Increased Appetite, Lethargy, Malaise, Night Sweats, Snoring, Sleep Apnea, Weight Gain, Weight Loss, Weakness, Other - EENT Eyes: As Per HPI. absent: Blind Spots, Blurred Vision, Change in Vision, Decreased Night Vision, Diplopia, Discharge, Dry Eye, Exophthalmos, Floaters, Irritation, Itchy Eyes, Loss of Peripheral Vision, Pain, Photophobia, Requires Corrective Lenses, Sees Flashes, Spots in Vision, Tunnel Vision, Other Visual Disturbances, Loss of Vision, Other Ears: As Per HPI. absent: Decreased Hearing, Ear Discharge, Ear Pain, Tinnitus, Abnormal Hearing, Disequilibrium, Dizziness, Other Nose/Mouth/Throat: As Per HPI. absent: Epistaxis, Nasal Congestion, Nasal Discharge, Nasal Obstruction, Nasal Trauma, Nose Pain, Post Nasal Drip, Sinus Pain, Sinus Pressure, Bleeding Gums, Change in Voice, Dental Pain, Dry Mouth, Dysphagia, Halitosis, Hoarsness, Lip Swelling, Mouth Lesions, Mouth Pain, O dynophagia, Sore Throat, Throat Swelling, Tongue Swelling, Facial Pain, Neck Pain, Neck Mass, Other - Cardiovascular Cardiovascular: As Per HPI, Dyspnea, Irregular Heart Rhythm, Leg Edema, Palpitations, Rapid Heart Rate. absent: Acrocyanosis, Chest Pain, Chest Pain at Rest, Chest Pain with Activity, Claudication, Diaphoresis, Dyspnea on Exertion, Edema, Pain Radiating to Arm/Neck/Jaw, Leg Ulcers, Lightheadedness, Orthopnea, Paroxysmal Nocturnal Dyspnea, Pedal Edema, Radiating Pain, Slow Heart Rate, Syncope, Other - Respiratory Respiratory: As Per HPI, Cough, Dyspnea on Exertion. absent: Dyspnea, Hemoptysis, Wheezing, Snoring, Stridor, Pain on Inspiration, Chest Congestion, Excessive Mucous Production, Change in Mucous Color, Pain with Coughing, Other - Gastrointestinal Gastrointestinal: As Per HPI. absent: Abdominal Pain, Belching, Bloating, Change in Bowel Habits, Change in Stool Character, Coffee Ground Emesis, Constipation, Cramping, Diarrhea, Dyspepsia, Dysphagia, Early Satiety, Excessive Flatus, Fecal Incontinence, Heartburn, Hematemesis, Hematochezia, Loose Stools, Melena, Nausea, Odynophagia, Temesmus, Vomiting, Other - Genitourinary Genitourinary: As Per HPI. absent: Change in Urinary Stream, Difficulty Urinating, Dysuria, Flank Pain, Hematuria, Pyuria, Nocturia, Urinary Incontinence, Urinary Frequency, Urinary Hesitance, Urinary Urgency, Voiding Freq/Small Amts, Freq UTI, Hx Renal/Bladder Calculi, Hx /Renal Surgery, Bladder Distension, Other - Reproductive: Male Reproductive:Male: As Per HPI - Musculoskeletal Musculoskeletal: As Per HPI. absent: Abnormal Gait, Arthralgias, Atrophy, Back Pain, Deformity, Joint Swelling, Limited Range of Motion, Loss of Height, Muscle Cramps, Muscle Weakness, Myalgias, Neck Pain, Numbness, Radiating Pain into Limb, Stiffness, Tingling, Other - Integumentary Integumentary: As Per HPI. absent: Acne, Alopecia, Bleeding Lesions, Change in Hair, Change in Nails, Change in Pigmentation, Changing Lesions, Dry Skin, Erythema, Furuncle, Hirsutism, Lesions, New Lesions, Non-Healing Lesions, Photosensitivity, Pruritus, Rash, Skin Pain, Skin Ulcer, Sores, Striae, Swelling, Unusual Bruising, Wounds, Jaundice, Other - Neurological Neurological: As Per HPI. absent: Abnormal Gait, Abnormal Hearing, Abnormal Movements, Abnormal Speech, Behavioral Changes, Burning Sensations, Confusion, Convulsions, Disequilibrium, Dizziness, Numbness, Focal Weakness, Frequent Falls, Headaches, Lack of Coordination, Loss of Vision, Memory Loss, Paresthesias, Radicular Pain, Restless Legs, Sensory Deficit, Syncope, Tingling, Tremor, Vertigo, Weakness, Other Visual Disturbances, Other - Psychiatric Psychiatric: As Per HPI. absent: Abnormal Sleep Pattern, Anhedonia, Anxiety, Auditory Hallucinations, Behavioral Changes, Change in Appetite, Change in Libido, Confusion, Depression, Difficulty Concentrating, Hallucinations, Homicidal Ideation, Hopelessness, Irritability, Memory Loss, Mood Swings, Panic Attacks, Paranoia, Suicidal Ideation, Visual Hallucinations, Tactile Hallucinations, Other - Endocrine Endocrine: As Per HPI. absent: Change in Body Appearance, Change in Libido, Cold Intolorance, Deepening of Voice, Excessive Sweating, Fatigue, Flushing, Heat Intolorance, Increase in Ring/Shoe/Hat Size, Palpitations, Polydipsia, Polyphagia, Polyuria, Other - Hematologic/Lymphatic Hematologic: As Per HPI. absent: Easy Bleeding, Easy Bruising, Lymphadenopathy, Other Past Patient History - Infectious Disease Hx of Infectious Diseases: None - Tetanus Immunizations Tetanus Immunization: Unknown - Past Medical History & Family History Past Medical History?: Yes - Past Social History Smoking Status: Never Smoked Chewing Tobacco Use: No Cigar Use: No Alcohol: None Drugs: Denies Home Situation {Lives}: Alone - CARDIAC Hx Cardiac Disorders: Yes Hx Atrial Fibrillation: Yes Hx Hypercholesterolemia: Yes Hx Hypertension: Yes Hx Peripheral Edema: Yes - PULMONARY Hx Respiratory Disorders: No Hx Emphysema: No Hx Pulmonary Embolism: No Hx Sleep Apnea: No - NEUROLOGICAL Hx Dementia: No Hx Seizures: No Hx Transient Ischemic Attacks (TIA): No - HEENT Hx HEENT Problems: No Hx Blind: No Hx Cataracts: No Hx Deafness: No Hx Difficulty Chewing: No Hx Epistaxis: No Hx Glaucoma: No Hx Macular Degeneration: No - RENAL Hx Chronic Kidney Disease: No - ENDOCRINE/METABOLIC Hx Endocrine Disorders: No Hx Hyperthyroidism: No Hx Hypothyroidism: No - HEMATOLOGICAL/ONCOLOGICAL Hx Blood Disorders: No Hx Sickle Cell Disease: No - INTEGUMENTARY Hx Dermatological Problems: No Other/Comment: Skin Ca with removal of lesion from left upper arm - MUSCULOSKELETAL/RHEUMATOLOGICAL Hx Musculoskeletal Disorders: No Hx Fractures: No Hx Rheumatoid Arthritis: No - GASTROINTESTINAL Hx Gastrointestinal Disorders: No Hx Diverticulitis: No Hx Gall Bladder Disease: No Hx Gastritis: No - GENITOURINARY/GYNECOLOGICAL Hx Genitourinary Disorders: No Hx Sexually Transmitted Disorders: No - PSYCHIATRIC Hx Psychophysiologic Disorder: Yes - SURGICAL HISTORY Hx Surgeries: Yes Hx Tonsillectomy: No - ANESTHESIA Hx Anesthesia: Yes Hx Anesthesia Reactions: No Hx Malignant Hyperthermia: No Meds Allergies/Adverse Reactions: Allergies Allergy/AdvReac Type Severity Reaction Status Date / Time No Known Allergies Allergy Verified 06/06/14 04:18 - Medications Medications: Current Medications Enoxaparin Sodium (Lovenox) 40 mg SC DAILY [facility]; Protocol Furosemide (Lasix) 40 mg IVP DAILY [facility] Diltiazem HCl 125 mg/ Sodium (Chloride) 125 mls @ 10 mls/hr IV .[id number]; Protocol Stop: 12/16/18 03:19 Last Admin: 12/15/18 16:00 Dose: 10 mg/hr, 10 mls/hr Lisinopril (Zestril) 10 mg PO DAILY [facility] Metoprolol Succinate (Toprol Xl) 50 mg PO BID [facility] Last Admin: 12/15/18 18:13 Dose: 50 mg Physical Exam - Constitutional Appears: In Acute Distress Additional comments: MILDLY DYSPNIC - Head Exam Head Exam: ATRAUMATIC, NORMAL INSPECTION, NORMOCEPHALIC - Eye Exam Eye Exam: EOMI, Normal appearance, PERRL. absent: Conjunctival injection, Nystagmus, Periorbital swelling, Periorbital tenderness, Scleral icterus Pupil Exam: NORMAL ACCOMODATION, PERRL. absent: Fixed, Irregular, Miosis, Mydriatic, Unequal - ENT Exam ENT Exam: Mucous Membranes Moist, Normal Exam. absent: Mucous Membranes Dry, Normal External Ear Exam, Normal Oropharynx, TM's Normal Bilaterally - Neck Exam Neck exam: Positive for: Normal Inspection. Negative for: Full Rom, Lymphadenopathy, Meningismus, Tenderness, Thyromegaly - Respiratory Exam Respiratory Exam: Accessory Muscle Use, Clear to Auscultation Bilateral, NORMAL BREATHING PATTERN. absent: Chest Wall Tenderness, Decreased Breath Sounds, Prolonged Expiratory Phase, Rales, Rhonchi, Wheezes, Respiratory Distress, Stridor - Cardiovascular Exam Cardiovascular Exam: Tachycardia, Irregular Rhythm, +S1, +S2, Systolic Murmur. absent: Bradycardia, Clicks, Diastolic murmur, Gallop, REGULAR RHYTHM, JVD, RRR, Rubs, +S4 - GI/Abdominal Exam GI & Abdominal Exam: Normal Bowel Sounds, Soft. absent: Bruit, Diminished Bowel Sounds, Distended, Firm, Guarding, Hernia, Hyperactive Bowel Sounds, Hypoactive Bowel Sounds, Mass, Organomegaly, Pulsatile Mass, Rebound, Rigid, Tenderness - Rectal Exam Rectal Exam: Deferred - Extremities Exam Extremities exam: Positive for: normal capillary refill, pedal edema, pedal pulses present. Negative for: calf tenderness, full ROM, joint swelling, normal inspection, tenderness - Back Exam Back exam: NORMAL INSPECTION. absent: CVA tenderness (L), CVA tenderness (R), FULL ROM, muscle spasm, paraspinal tenderness, rash noted, tenderness, vertebral tenderness - Neurological Exam Neurological exam: Alert, CN II-XII Intact, Normal Gait, Oriented x3, Reflexes Normal - Psychiatric Exam Psychiatric exam: Anxious, Normal Affect - Skin Skin Exam: Dry, Intact, Normal Color, Warm Results - Vital Signs Recent Vital Signs: Last Vital Signs Temp 97.7 F 12/15/18 15:49 Pulse 125 H 12/15/18 18:13 Resp 18 12/15/18 15:49 BP 135/85 12/15/18 18:13 Pulse Ox 96 12/15/18 15:49 - Labs Result Diagrams: 12/15/18 10:45 12/15/18 10:45 Labs: Laboratory Results - last 24 hr 12/15/18 12/15/18 12/15/18 10:42 10:45 10:45 WBC 7.4 RBC 4.33 L Hgb 14.0 Hct 42.3 MCV 97.6 H MCH 32.3 H MCHC 33.1 RDW 14.1 Plt Count 227 MPV 8.5 Neut % (Auto) 85.0 H Lymph % (Auto) 7.3 L [place] % (Auto) 6.8 Eos % (Auto) 0.1 Baso % (Auto) 0.8 Neut # (Auto) 6.3 Lymph # (Auto) 0.5 L [place] # (Auto) 0.5 Eos # (Auto) 0.0 Baso # (Auto) 0.1 Neutrophils % (Manual) 89 H Lymphocytes % (Manual) 5 L Monocytes % (Manual) 6 Platelet Estimate Normal RBC Morphology Normal PT INR APTT Sodium 140 Potassium 4.0 Chloride 108 H Carbon Dioxide 22 Anion Gap 14 BUN 44 H Creatinine 1.4 Est GFR ( Amer) 60 Est GFR (Non-Af Amer) 50 POC Glucose (mg/dL) 122 H Random Glucose 113 H Calcium 10.1 Phosphorus 4.1 Magnesium 1.9 Total Bilirubin 1.1 AST 124 H D ALT 104 H D Alkaline Phosphatase 114 Troponin I 0.0500 NT-Pro-B Natriuret Pep 3600 H Total Protein 6.9 Albumin 3.7 Globulin 3.2 Albumin/Globulin Ratio 1.1 Urine Color Urine Clarity Urine pH Ur Specific [place] Urine Protein Urine Glucose (UA) Urine Ketones Urine Blood Urine Nitrate Urine Bilirubin Urine Urobilinogen Ur Leukocyte Esterase Urine RBC (Auto) Urine Microscopic WBC Urine Bacteria Hyaline Casts 12/15/18 12/15/18 10:45 13:13 WBC RBC Hgb Hct MCV MCH MCHC RDW Plt Count MPV Neut % (Auto) Lymph % (Auto) [place] % (Auto) Eos % (Auto) Baso % (Auto) Neut # (Auto) Lymph # (Auto) [place] # (Auto) Eos # (Auto) Baso # (Auto) Neutrophils % (Manual) Lymphocytes % (Manual) Monocytes % (Manual) Platelet Estimate RBC Morphology PT 15.6 H INR 1.4 APTT 32.2 Sodium Potassium Chloride Carbon Dioxide Anion Gap BUN Creatinine Est GFR ( Amer) Est GFR (Non-Af Amer) POC Glucose (mg/dL) Random Glucose Calcium Phosphorus Magnesium Total Bilirubin AST ALT Alkaline Phosphatase Troponin I NT-Pro-B Natriuret Pep Total Protein Albumin Globulin Albumin/Globulin Ratio Urine Color Sushma Urine Clarity Clear Urine pH 5.0 Ur Specific [place] 1.019 Urine Protein 100 Urine Glucose (UA) Neg Urine Ketones Negative Urine Blood Moderate Urine Nitrate Negative Urine Bilirubin Negative Urine Urobilinogen 2.0 Ur Leukocyte Esterase Neg Urine RBC (Auto) 3 Urine Microscopic WBC 3 Urine Bacteria Rare Hyaline Casts 0-2 Assessment & Plan (1) SOB (shortness of breath) Status: Acute (2) Cough Status: Acute (3) Atrial fibrillation with RVR Status: Acute (4) Depression (emotion) Status: Acute Priority: Low (5) Hypertension Status: Chronic Priority: High (6) Fatigue Status: Acute (7) Anxiety Status: Acute (8) Edema Status: Acute - Assessment and Plan (Free Text) Plan: INCREASE CARDIZEM DRIP AND GIVE 10MG IVP X 1 NOW. MAG SULFATE 2GM NOW. TELE MONITOR. REVIEW OF ECHO REVEALS MILD TO MOD ENLARGED ATRIA, BORDERLINE DECREASED EF WHICH MAY BE DUE TO AFIB. WILL CONSIDER SADIQ WITH CV AND CARDIAC CATH. COUGH MAY BE DUE TO ACEI WOULD CHANGE TO ARB. SHOULD ALSO CHECK D DIMER AND LE VENOUS DUPLEX PT HAS SOB, INCREASED BNP WITH CLEAR LUNG PANG. 75 MIN TOTAL CARE TIME.
--- NOTE | 2018-12-15 20:40 | CP.PCM.HP ---
History of Present Illness - History of Present Illness History of Present Illness: CC: Palpitation and lightheadedness HPI 73 years old male with past medical history of A. fib with RVR who signed out AGAINST MEDICAL ADVICE last visit presented to the ER with palpitation and lightheadedness. This presentation patient was in A. fib with RVR and on the way to the hospital the patient was given Cardizem 20 mg IV with the rates coming down to 90-100 beats per minute. While in the ER patient's heart rate again jumped to 140s-150s when admission was initiated. Present on Admission - Present on Admission Any Indicators Present on Admission: No Review of Systems - Review of Systems All systems: reviewed and no additional remarkable complaints except Review of Systems: All 12 systems were reviewed and are negative except as per HPI Past Patient History - Infectious Disease Hx of Infectious Diseases: None - Tetanus Immunizations Tetanus Immunization: Unknown - Past Medical History & Family History Past Medical History?: Yes Past Family History: Reviewed and not pertinent - Past Social History Smoking Status: Never Smoked Alcohol: None Drugs: Denies - CARDIAC Hx Cardiac Disorders: Yes - PULMONARY Hx Emphysema: No Hx Pulmonary Embolism: No Hx Sleep Apnea: No - NEUROLOGICAL Hx Dementia: No Hx Seizures: No Hx Transient Ischemic Attacks (TIA): No - HEENT Hx HEENT Problems: No Hx Blind: No Hx Cataracts: No Hx Deafness: No Hx Difficulty Chewing: No Hx Epistaxis: No Hx Glaucoma: No Hx Macular Degeneration: No - RENAL Hx Chronic Kidney Disease: No - ENDOCRINE/METABOLIC Hx Hyperthyroidism: No Hx Hypothyroidism: No - HEMATOLOGICAL/ONCOLOGICAL Hx Sickle Cell Disease: No - INTEGUMENTARY Hx Dermatological Problems: No Hx Basil Cell: No Hx Pitts: No Hx Cellulitis: No Hx Eczema: No Hx Melanoma: No Hx Psoriasis: No Hx Squamous Cell: No Other/Comment: Skin Ca with removal of lesion from left upper arm - MUSCULOSKELETAL/RHEUMATOLOGICAL Hx Falls: Yes - GASTROINTESTINAL Hx Diverticulitis: No Hx Gall Bladder Disease: No Hx Gastritis: No - GENITOURINARY/GYNECOLOGICAL Hx Sexually Transmitted Disorders: No - PSYCHIATRIC Hx Psychophysiologic Disorder: Yes - SURGICAL HISTORY Hx Tonsillectomy: No - ANESTHESIA Hx Anesthesia: Yes Hx Anesthesia Reactions: No Hx Malignant Hyperthermia: No Meds Allergies/Adverse Reactions: Allergies Allergy/AdvReac Type Severity Reaction Status Date / Time No Known Allergies Allergy Verified 12/26/18 12:23 Physical Exam - Constitutional Appears: No Acute Distress, Chronically Ill - Head Exam Head Exam: ATRAUMATIC, NORMAL INSPECTION, NORMOCEPHALIC - Eye Exam Eye Exam: EOMI, Normal appearance, PERRL Pupil Exam: NORMAL ACCOMODATION, PERRL - ENT Exam ENT Exam: Mucous Membranes Moist, Normal Exam - Neck Exam Neck exam: Positive for: Normal Inspection - Respiratory Exam Respiratory Exam: Clear to Auscultation Bilateral, NORMAL BREATHING PATTERN - Cardiovascular Exam Cardiovascular Exam: Irregular Rhythm, +S1, +S2 - GI/Abdominal Exam GI & Abdominal Exam: Normal Bowel Sounds, Soft. absent: Tenderness - Extremities Exam Extremities exam: Positive for: normal inspection - Back Exam Back exam: NORMAL INSPECTION - Neurological Exam Neurological exam: Alert, CN II-XII Intact, Normal Gait, Oriented x3, Reflexes Normal - Psychiatric Exam Psychiatric exam: Normal Affect, Normal Mood - Skin Skin Exam: Dry, Intact, Normal Color, Warm Results - Vital Signs Recent Vital Signs: Last Vital Signs Temp 97.6 F 12/15/18 19:36 Pulse 105 H 12/15/18 19:36 Resp 18 12/15/18 19:36 BP 139/87 12/15/18 19:36 Pulse Ox 95 12/15/18 19:36 - Labs Result Diagrams: 01/04/19 05:01 01/04/19 05:01 Labs: Laboratory Results - last 24 hr 12/15/18 12/15/18 12/15/18 10:42 10:45 10:45 WBC 7.4 RBC 4.33 L Hgb 14.0 Hct 42.3 MCV 97.6 H MCH 32.3 H MCHC 33.1 RDW 14.1 Plt Count 227 MPV 8.5 Neut % (Auto) 85.0 H Lymph % (Auto) 7.3 L Gray % (Auto) 6.8 Eos % (Auto) 0.1 Baso % (Auto) 0.8 Neut # (Auto) 6.3 Lymph # (Auto) 0.5 L Gray # (Auto) 0.5 Eos # (Auto) 0.0 Baso # (Auto) 0.1 Neutrophils % (Manual) 89 H Lymphocytes % (Manual) 5 L Monocytes % (Manual) 6 Platelet Estimate Normal RBC Morphology Normal PT INR APTT Sodium 140 Potassium 4.0 Chloride 108 H Carbon Dioxide 22 Anion Gap 14 BUN 44 H Creatinine 1.4 Est GFR ( Amer) 60 Est GFR (Non-Af Amer) 50 POC Glucose (mg/dL) 122 H Random Glucose 113 H Calcium 10.1 Phosphorus 4.1 Magnesium 1.9 Total Bilirubin 1.1 AST 124 H D ALT 104 H D Alkaline Phosphatase 114 Troponin I 0.0500 NT-Pro-B Natriuret Pep 3600 H Total Protein 6.9 Albumin 3.7 Globulin 3.2 Albumin/Globulin Ratio 1.1 Urine Color Urine Clarity Urine pH Ur Specific [place] Urine Protein Urine Glucose (UA) Urine Ketones Urine Blood Urine Nitrate Urine Bilirubin Urine Urobilinogen Ur Leukocyte Esterase Urine RBC (Auto) Urine Microscopic WBC Urine Bacteria Hyaline Casts 12/15/18 12/15/18 12/15/18 10:45 13:13 19:00 WBC RBC Hgb Hct MCV MCH MCHC RDW Plt Count MPV Neut % (Auto) Lymph % (Auto) Gray % (Auto) Eos % (Auto) Baso % (Auto) Neut # (Auto) Lymph # (Auto) Gray # (Auto) Eos # (Auto) Baso # (Auto) Neutrophils % (Manual) Lymphocytes % (Manual) Monocytes % (Manual) Platelet Estimate RBC Morphology PT 15.6 H INR 1.4 APTT 32.2 Sodium Potassium Chloride Carbon Dioxide Anion Gap BUN Creatinine Est GFR ( Amer) Est GFR (Non-Af Amer) POC Glucose (mg/dL) Random Glucose Calcium Phosphorus Magnesium Total Bilirubin AST ALT Alkaline Phosphatase Troponin I 0.0590 NT-Pro-B Natriuret Pep Total Protein Albumin Globulin Albumin/Globulin Ratio Urine Color Sushma Urine Clarity Clear Urine pH 5.0 Ur Specific [place] 1.019 Urine Protein 100 Urine Glucose (UA) Neg Urine Ketones Negative Urine Blood Moderate Urine Nitrate Negative Urine Bilirubin Negative Urine Urobilinogen 2.0 Ur Leukocyte Esterase Neg Urine RBC (Auto) 3 Urine Microscopic WBC 3 Urine Bacteria Rare Hyaline Casts 0-2 Assessment & Plan (1) Atrial fibrillation with RVR Status: Acute Priority: High (2) COPD (chronic obstructive pulmonary disease) Status: Chronic Priority: High (3) Hypertension Status: Chronic Priority: High (4) Anxiety Status: Acute - Assessment and Plan (Free Text) Plan: Cardizem infusion 10 mg/h Metoprolol XL 50 mg twice daily Oxygen by nasal cannula Serial troponin and EKG Transthoracic echo TSH Cardiology consult [facility] every 6 hours.
[2018-12-15] MEDS ORDERED: Promethazine DM 6.25 mg-15 mg/5 ml Syrup PO PRN (20:41)
[2018-12-15] MEDS ORDERED: Magnesium Sulfate 2 gm/50 ml 2 GM/50 ML BAG IVPB ONE (20:54)
--- NOTE | 2018-12-15 22:46 | CARD ---
APPROVED REPORT Date of service: 12/15/2018 EKG Measurement Heart [id number] <Conclusion> Atrial fibrillation with rapid ventricular response T wave abnormality, consider lateral ischemia Abnormal ECG
[2018-12-15] MEDS ORDERED: Enoxaparin 40 mg Syringe SC SCH (23:45)
[2018-12-16] MEDS ORDERED: Levalbuterol 1.25 MG/3 ML Inhal Soln UD INH PRN (00:41)
[2018-12-16 07:32] LABS: ALB/GLOB RATIO 1.1 (1.0-2.1); ALBUMIN 3.6 g/dL (3.5-5.0); CALCIUM 9.5 mg/dL (8.4-10.2)
[2018-12-16 07:35] LABS: TROPONIN I 0.065 ng/mL (0.00-0.120)
[2018-12-16 07:53] LABS: T3 0.866 nmol/L (1.49-2.60)
--- NOTE | 2018-12-16 17:48 | CP.PCM.PN ---
Subjective - Date & Time of Evaluation Date of Evaluation: 12/16/18 Time of Evaluation: 17:48 - Subjective Subjective: LESS COUGH. APPEARS ANXIOUS. NO PALP OR LH. Objective - Vital Signs/Intake and Output Vital Signs (last 24 hours): Temp Pulse Resp BP Pulse Ox 97.7 F 145 H 17 114/83 96 12/16/18 16:28 12/16/18 16:48 12/16/18 16:28 12/16/18 16:48 12/16/18 16:28 Intake and Output: 12/16/18 12/16/18 06:59 18:59 Intake Total 125 Balance 125 - Medications Medications: Current Medications Acetaminophen (Tylenol 325mg Tab) 650 mg PO Q6 PRN PRN Reason: Pain, Mild (1-3) Last Admin: 12/16/18 08:45 Dose: 650 mg Enoxaparin Sodium (Lovenox) 100 mg SC Q12 NELLI; Protocol Sodium Chloride (Sodium Chloride 0.45%) 1,000 mls @ 60 mls/hr IV .[id number] NELLI Stop: 12/17/18 10:39 Losartan Potassium (Cozaar) 50 mg PO DAILY NELLI Last Admin: 12/16/18 08:39 Dose: 50 mg Metoprolol Succinate (Toprol Xl) 50 mg PO Q12 NELLI Promethazine HCl/Dextromethorphan (Phenergan Dm Syrup) 5 ml PO Q6 PRN PRN Reason: Cough and congestion Last Admin: 12/15/18 22:00 Dose: 5 ml - Labs Labs: 12/15/18 10:45 12/16/18 06:57 PT 15.6 Seconds (9.8-13.1) H 12/15/18 10:45 INR 1.4 12/15/18 10:45 APTT 32.2 Seconds (25.6-37.1) 12/15/18 10:45 - Constitutional Appears: Non-toxic - Head Exam Head Exam: ATRAUMATIC, NORMAL INSPECTION, NORMOCEPHALIC - Eye Exam Eye Exam: EOMI, Normal appearance, PERRL. absent: Conjunctival injection, Nystagmus, Periorbital swelling, Periorbital tenderness, Scleral icterus Pupil Exam: NORMAL ACCOMODATION, PERRL - ENT Exam ENT Exam: Mucous Membranes Moist, Normal Exam. absent: Mucous Membranes Dry, Normal External Ear Exam, Normal Oropharynx, TM's Normal Bilaterally - Neck Exam Neck Exam: Full ROM, Normal Inspection. absent: Lymphadenopathy, Meningismus, Tenderness, Thyromegaly - Respiratory Exam Respiratory Exam: Clear to Ausculation Bilateral, NORMAL BREATHING PATTERN. absent: Accessory Muscle Use, Chest Wall Tenderness, Decreased Breath Sounds, Prolonged Expiratory Phase, Rales, Rhonchi, Wheezes, Respiratory Distress, Stridor - Cardiovascular Exam Cardiovascular Exam: Tachycardia, Irregular Rhythm, +S1, +S2, Murmur. absent: Bradycardia, Clicks, Diastolic murmur, Gallop, REGULAR RHYTHM, JVD, RRR, Rubs, +S4 - GI/Abdominal Exam GI & Abdominal Exam: Soft, Normal Bowel Sounds. absent: Bruit, Distended, Firm, Guarding, Rigid, Tenderness, Diminished Bowel Sounds, Hernia, Hyperactive Bowel Sounds, Hypoactive Bowel Sounds, Organomegaly, Pulsatile Mass, Rebound, Mass - Rectal Exam Rectal Exam: Deferred - Extremities Exam Extremities Exam: Full ROM, Normal Capillary Refill, Normal Inspection. absent: Calf Tenderness, Joint Swelling, Pedal Edema, Tenderness - Back Exam Back Exam: NORMAL INSPECTION. absent: CVA tenderness (L), CVA tenderness (R), Full ROM, muscle spasm, paraspinal tenderness, rash noted, tenderness, vertebral tenderness - Neurological Exam Neurological Exam: Alert, Awake, CN II-XII Intact, Normal Gait, Oriented x3. absent: Abnormal Gait, Altered, Motor Sensory Deficit, Reflexes Normal - Psychiatric Exam Psychiatric exam: Normal Affect, Normal Mood. absent: Agitated, Anxious, Depressed, Flat Affect, Homicidal Ideation, Manic, Suicidal Ideation - Skin Skin Exam: Dry, Intact, Normal Color, Warm. absent: Abrasion, Cyanosis, Diaphoretic, Erythema, Mottled, Pallor, Pallor, Petechiae, Rash, Urticaria, Vesicles Assessment and Plan (1) SOB (shortness of breath) Status: Acute (2) Cough Status: Acute (3) Atrial fibrillation with RVR Status: Acute (4) Depression (emotion) Status: Acute (5) Hypertension Status: Chronic (6) Fatigue Status: Acute (7) Anxiety Status: Acute (8) Edema Status: Acute - Assessment and Plan (Free Text) Plan: GIVE IVF. CHECK D DIMER AND LE DOPPLERS MONITOR ON TELE. STOP ARB AND DIURETICS 55 MIN TOTAL CARE TIME.
[2018-12-16] MEDS ORDERED: Sodium Chloride 0.45% 1,000 ML IV SCH (18:00)
[2018-12-16] MEDS: Enoxaparin 100 mg Syringe SC SCH (20:58)
[2018-12-16] MEDS: Metoprolol Succinate 50 mg XL Tab PO SCH (20:58)
[2018-12-17 05:35] LABS: HEMOGLOBIN 12.7 g/dL (12.0-18.0); MEAN CELL VOLUME 96.7 fl (80.0-94.0); MEAN CORPUSCULAR HEMOGLOBIN 32.9 pg (27.0-31.0); RBC 3.88 Mil/uL (4.40-5.90); RED CELL DISTRIBUTION WIDTH 14.4 % (11.5-14.5)
[2018-12-17 05:52] LABS: CALCIUM 8.6 mg/dL (8.4-10.2)
--- NOTE | 2018-12-17 07:34 | CT ---
Date of service: 12/16/2018 PROCEDURE: CT HEAD WITHOUT CONTRAST. HISTORY: confusion, afib COMPARISON: Unenhanced head CT 11/20/2018. TECHNIQUE: Axial computed tomography images were obtained through the head/brain without intravenous contrast. Radiation dose: Total exam DLP = 1167.49 mGy-cm. This CT exam was performed using one or more of the following dose reduction techniques: Automated exposure control, adjustment of the mA and/or kV according to patient size, and/or use of iterative reconstruction technique. FINDINGS: HEMORRHAGE: No intracranial hemorrhage. BRAIN: Good corticomedullary differentiation is seen. Reiterated diffuse cerebral atrophy and chronic microangiopathy. Up bilateral external capsule dilated perivascular spaces are favored over chronic lacunes but the overall appearance is stable in the interval nevertheless. No suspicious extra-axial fluid collection is identified and the midline brain anatomy appears grossly nonfocal as imaged. No mass effect identified. VENTRICLES: Unremarkable. No hydrocephalus. CALVARIUM: No destructive bony lesion or displaced fracture identified including through the skullbase. PARANASAL SINUSES: Unremarkable as visualized. No significant inflammatory changes. MASTOID AIR CELLS: Unremarkable as visualized. No inflammatory changes. OTHER FINDINGS: None. IMPRESSION: No acute intracranial findings appreciable. No fracture identified. Stable age-related degenerative changes are appreciated which remain age-appropriate as compared prior unenhanced head CT 11/20/2018. Concordant preliminary report from Elian, 12/16/2018, 10:32 p.m..
[2018-12-17] MEDS: Metoprolol Succinate 50 mg XL Tab PO SCH ×2 (09:00→21:06)
[2018-12-17] MEDS: Enoxaparin 100 mg Syringe SC SCH ×2 (09:01→21:06)
[2018-12-17] MEDS ORDERED: Magnesium Sulfate 2 gm/50 ml 2 GM/50 ML BAG IVPB ONE (15:37)
[2018-12-17] MEDS ORDERED: Potassium Chloride 20 mEq/15 ml LIQ UD PO ONE (15:37)
--- NOTE | 2018-12-17 15:41 | CP.PCM.PN ---
Subjective - Date & Time of Evaluation Date of Evaluation: 12/16/18 Time of Evaluation: 17:00 Objective - Vital Signs/Intake and Output Vital Signs (last 24 hours): Temp Pulse Resp BP Pulse Ox 97.5 F L 95 H 18 128/76 94 L 12/17/18 12:00 12/17/18 12:00 12/17/18 12:00 12/17/18 12:00 12/17/18 12:00 - Medications Medications: Current Medications Acetaminophen (Tylenol 325mg Tab) 650 mg PO Q6 PRN PRN Reason: Pain, Mild (1-3) Last Admin: 12/16/18 08:45 Dose: 650 mg Diltiazem HCl (Cardizem Cd) 240 mg PO DAILY NELLI Enoxaparin Sodium (Lovenox) 100 mg SC Q12 NELLI; Protocol Last Admin: 12/17/18 09:01 Dose: 100 mg Potassium Chloride (Potassium Chloride 10 Meq/100 Ml) 100 mls @ 100 mls/hr IVPB Q1 NELLI Stop: 12/17/18 19:59 Magnesium Sulfate (Magnesium Sulfate 2 Gm/50 Ml Water) 2 gm in 50 mls @ 50 mls/hr IVPB ONCE ONE Stop: 12/17/18 16:36 Sodium Chloride (Sodium Chloride 0.9%) 1,000 mls @ 125 mls/hr IV .Q8H NELLI Stop: 12/18/18 15:44 Levalbuterol HCl (Xopenex) 0.63 mg INH RQ6 PRN PRN Reason: Shortness of Breath Metoprolol Succinate (Toprol Xl) 50 mg PO Q12 NELLI Last Admin: 12/17/18 09:00 Dose: 50 mg Promethazine HCl/Dextromethorphan (Phenergan Dm Syrup) 5 ml PO Q6 PRN PRN Reason: Cough and congestion Last Admin: 12/15/18 22:00 Dose: 5 ml - Labs Labs: 12/17/18 05:10 12/17/18 05:10 PT 15.6 Seconds (9.8-13.1) H 12/15/18 10:45 INR 1.4 12/15/18 10:45 APTT 32.2 Seconds (25.6-37.1) 12/15/18 10:45 Assessment and Plan (1) SOB (shortness of breath) Status: Acute (2) Cough Status: Acute (3) Atrial fibrillation with RVR Status: Acute (4) Depression (emotion) Status: Acute (5) Hypertension Status: Chronic (6) Fatigue Status: Acute (7) Anxiety Status: Acute (8) Edema Status: Acute
--- NOTE | 2018-12-17 15:43 | CP.PCM.PN ---
Subjective - Date & Time of Evaluation Date of Evaluation: 12/17/18 Time of Evaluation: 15:41 - Subjective Subjective: PT REMAINS TACHY ON TELE. CO ANXIETY AND MILD DYSPNEA. Objective - Vital Signs/Intake and Output Vital Signs (last 24 hours): Temp Pulse Resp BP Pulse Ox 97.5 F L 95 H 18 128/76 94 L 12/17/18 12:00 12/17/18 12:00 12/17/18 12:00 12/17/18 12:00 12/17/18 12:00 - Medications Medications: Current Medications Acetaminophen (Tylenol 325mg Tab) 650 mg PO Q6 PRN PRN Reason: Pain, Mild (1-3) Last Admin: 12/16/18 08:45 Dose: 650 mg Diltiazem HCl (Cardizem Cd) 240 mg PO DAILY NELLI Enoxaparin Sodium (Lovenox) 100 mg SC Q12 NELLI; Protocol Last Admin: 12/17/18 09:01 Dose: 100 mg Potassium Chloride (Potassium Chloride 10 Meq/100 Ml) 100 mls @ 100 mls/hr IVPB Q1 NELLI Stop: 12/17/18 19:59 Magnesium Sulfate (Magnesium Sulfate 2 Gm/50 Ml Water) 2 gm in 50 mls @ 50 mls/hr IVPB ONCE ONE Stop: 12/17/18 16:36 Sodium Chloride (Sodium Chloride 0.9%) 1,000 mls @ 125 mls/hr IV .Q8H NELLI Stop: 12/18/18 15:44 Levalbuterol HCl (Xopenex) 0.63 mg INH RQ6 PRN PRN Reason: Shortness of Breath Metoprolol Succinate (Toprol Xl) 50 mg PO Q12 NELLI Last Admin: 12/17/18 09:00 Dose: 50 mg Promethazine HCl/Dextromethorphan (Phenergan Dm Syrup) 5 ml PO Q6 PRN PRN Reason: Cough and congestion Last Admin: 12/15/18 22:00 Dose: 5 ml - Labs Labs: 12/17/18 05:10 12/17/18 05:10 PT 15.6 Seconds (9.8-13.1) H 12/15/18 10:45 INR 1.4 12/15/18 10:45 APTT 32.2 Seconds (25.6-37.1) 12/15/18 10:45 - Constitutional Appears: Non-toxic - Head Exam Head Exam: ATRAUMATIC, NORMAL INSPECTION, NORMOCEPHALIC - Eye Exam Eye Exam: EOMI, Normal appearance, PERRL. absent: Conjunctival injection, Nystagmus, Periorbital swelling, Periorbital tenderness, Scleral icterus Pupil Exam: NORMAL ACCOMODATION, PERRL - ENT Exam ENT Exam: Mucous Membranes Moist, Normal Exam. absent: Mucous Membranes Dry, Normal External Ear Exam, Normal Oropharynx, TM's Normal Bilaterally - Neck Exam Neck Exam: Full ROM, Normal Inspection. absent: Lymphadenopathy, Meningismus, Tenderness, Thyromegaly - Respiratory Exam Respiratory Exam: Clear to Ausculation Bilateral, NORMAL BREATHING PATTERN. absent: Accessory Muscle Use, Chest Wall Tenderness, Decreased Breath Sounds, Prolonged Expiratory Phase, Rales, Rhonchi, Wheezes, Respiratory Distress, Stridor - Cardiovascular Exam Cardiovascular Exam: Tachycardia, Irregular Rhythm, +S1, +S2, Murmur - GI/Abdominal Exam GI & Abdominal Exam: Soft, Normal Bowel Sounds. absent: Bruit, Distended, Firm, Guarding, Rigid, Tenderness, Diminished Bowel Sounds, Hernia, Hyperactive Bowel Sounds, Hypoactive Bowel Sounds, Organomegaly, Pulsatile Mass, Rebound, Mass - Rectal Exam Rectal Exam: Deferred - Extremities Exam Extremities Exam: Full ROM, Normal Capillary Refill, Normal Inspection. absent: Calf Tenderness, Joint Swelling, Pedal Edema, Tenderness - Back Exam Back Exam: NORMAL INSPECTION. absent: CVA tenderness (L), CVA tenderness (R), Full ROM, muscle spasm, paraspinal tenderness, rash noted, tenderness, vertebral tenderness - Neurological Exam Neurological Exam: Alert, Awake, CN II-XII Intact, Normal Gait, Oriented x3. absent: Abnormal Gait, Altered, Motor Sensory Deficit, Reflexes Normal - Psychiatric Exam Psychiatric exam: Normal Affect, Normal Mood. absent: Agitated, Anxious, Depressed, Flat Affect, Homicidal Ideation, Manic, Suicidal Ideation - Skin Skin Exam: Dry, Intact, Normal Color, Warm. absent: Abrasion, Cyanosis, Diaphoretic, Erythema, Mottled, Pallor, Pallor, Petechiae, Rash, Urticaria, Vesicles Assessment and Plan (1) SOB (shortness of breath) Status: Acute (2) Cough Status: Acute (3) Atrial fibrillation with RVR Status: Acute (4) Depression (emotion) Status: Acute (5) Hypertension Status: Chronic (6) Fatigue Status: Acute (7) Anxiety Status: Acute (8) Edema Status: Acute - Assessment and Plan (Free Text) Plan: STOP IV CARDIZEM GIVE STAT DOSE OF CARDIZEM 240 PO, THEN DAILY CONT TOPROL XL BID GIVE ADDITIONAL KCL 40 MAG 2GM IV KEEP MAG OVER 2 AND K AROUND 4.5 GIVEN NS PT SEVERELY DEHYDRATED STOP LOSARTAN BP LOW. MAY RESTART ONCE REHYDRATED AND CR IMPROVED IF BP CAN TOLERATE CHECK LYTES IN AM LIMIT NEBS THIS WILL INCREASE HR. 65 MIN TOTAL CARE TIME
[2018-12-17] MEDS: Levalbuterol 0.63 MG/3 ML Inhal Soln UD INH PRN ×2 (15:59→23:40)
[2018-12-17] MEDS: diltiaZEM 240 mg/24 Hours CD Cap PO SCH (16:16)
[2018-12-17] MEDS: Potassium CL 10mEq/100ml 100 ML IVPB SCH ×4 (16:19→22:19)
[2018-12-17] MEDS: Sodium Chloride 0.9% 1,000 ML IV SCH (16:21)
--- NOTE | 2018-12-17 16:39 | RAD ---
Date of service: 12/17/2018 HISTORY: Hypoxemia COMPARISON: Portable chest 12/15/2018. TECHNIQUE: 1 view obtained. FINDINGS: LUNGS: Diminished infiltrate is appreciated in overall density but not distribution at the mid to inferior right lung zone. Diminished left pleural effusion. Stable mild right pleural effusion. Underlying atelectasis or infiltrate is not excluded at the left base. No pneumothorax bilaterally. PLEURA: As above. CARDIOVASCULAR: Calcific atherosclerotic changes are seen related to the thoracic aorta. Normal cardiac size. No pulmonary vascular congestion. OSSEOUS STRUCTURES: No significant abnormalities. VISUALIZED UPPER ABDOMEN: Normal. OTHER FINDINGS: None. IMPRESSION: Mildly improved left pleural effusion with underlying atelectasis or infiltrate not excluded at the left base. Likely diminishing mid to inferior right sided pulmonary infiltrate though significant residual remains. Stable small right pleural effusion.
--- NOTE | 2018-12-18 01:02 | CP.PCM.PN ---
Subjective - Date & Time of Evaluation Date of Evaluation: 12/16/18 Time of Evaluation: 19:10 - Subjective Subjective: Seen and examined at the bedside. Less cough. Continued to be tachycardic on telemetry monitoring. Objective - Vital Signs/Intake and Output Vital Signs (last 24 hours): Temp Pulse Resp BP Pulse Ox 97.7 F 89 18 106/78 94 L 12/18/18 00:44 12/18/18 00:44 12/18/18 00:44 12/18/18 00:44 12/18/18 00:44 - Medications Medications: Current Medications Acetaminophen (Tylenol 325mg Tab) 650 mg PO Q6 PRN PRN Reason: Pain, Mild (1-3) Last Admin: 12/16/18 08:45 Dose: 650 mg Diltiazem HCl (Cardizem Cd) 240 mg PO DAILY [facility] Last Admin: 12/17/18 16:16 Dose: 240 mg Docusate Sodium (Colace) 100 mg PO DAILY NELLI Enoxaparin Sodium (Lovenox) 100 mg SC Q12 NELLI; Protocol Last Admin: 12/17/18 21:06 Dose: 100 mg Sodium Chloride (Sodium Chloride 0.9%) 1,000 mls @ 125 mls/hr IV .Q8H NELLI Stop: 12/18/18 15:44 Last Admin: 12/17/18 16:21 Dose: 125 mls/hr Levalbuterol HCl (Xopenex) 0.63 mg INH RQ6 PRN PRN Reason: Shortness of Breath Last Admin: 12/17/18 23:40 Dose: 0.63 mg Metoprolol Succinate (Toprol Xl) 50 mg PO Q12 NELLI Last Admin: 12/17/18 21:06 Dose: 50 mg Promethazine HCl/Dextromethorphan (Phenergan Dm Syrup) 5 ml PO Q6 PRN PRN Reason: Cough and congestion Last Admin: 12/15/18 22:00 Dose: 5 ml - Labs Labs: 12/17/18 05:10 12/17/18 05:10 PT 15.6 Seconds (9.8-13.1) H 12/15/18 10:45 INR 1.4 12/15/18 10:45 APTT 32.2 Seconds (25.6-37.1) 12/15/18 10:45 Assessment and Plan (1) Atrial fibrillation with RVR Status: Acute (2) SOB (shortness of breath) Status: Acute (3) COPD (chronic obstructive pulmonary disease) Status: Chronic (4) CHF (congestive heart failure) Status: Acute - Assessment and Plan (Free Text) Plan: Continue current care
--- NOTE | 2018-12-18 01:03 | CP.PCM.PN ---
Subjective - Date & Time of Evaluation Date of Evaluation: 12/17/18 Time of Evaluation: 17:20 - Subjective Subjective: No new complaint. Continues to be tachycardic Objective - Vital Signs/Intake and Output Vital Signs (last 24 hours): Temp Pulse Resp BP Pulse Ox 97.7 F 89 18 106/78 94 L 12/18/18 00:44 12/18/18 00:44 12/18/18 00:44 12/18/18 00:44 12/18/18 00:44 - Medications Medications: Current Medications Acetaminophen (Tylenol 325mg Tab) 650 mg PO Q6 PRN PRN Reason: Pain, Mild (1-3) Last Admin: 12/16/18 08:45 Dose: 650 mg Diltiazem HCl (Cardizem Cd) 240 mg PO DAILY [facility] Last Admin: 12/17/18 16:16 Dose: 240 mg Docusate Sodium (Colace) 100 mg PO DAILY NELLI Enoxaparin Sodium (Lovenox) 100 mg SC Q12 NELLI; Protocol Last Admin: 12/17/18 21:06 Dose: 100 mg Sodium Chloride (Sodium Chloride 0.9%) 1,000 mls @ 125 mls/hr IV .Q8H NELLI Stop: 12/18/18 15:44 Last Admin: 12/17/18 16:21 Dose: 125 mls/hr Levalbuterol HCl (Xopenex) 0.63 mg INH RQ6 PRN PRN Reason: Shortness of Breath Last Admin: 12/17/18 23:40 Dose: 0.63 mg Metoprolol Succinate (Toprol Xl) 50 mg PO Q12 NELLI Last Admin: 12/17/18 21:06 Dose: 50 mg Promethazine HCl/Dextromethorphan (Phenergan Dm Syrup) 5 ml PO Q6 PRN PRN Reason: Cough and congestion Last Admin: 12/15/18 22:00 Dose: 5 ml - Labs Labs: 12/17/18 05:10 12/17/18 05:10 PT 15.6 Seconds (9.8-13.1) H 12/15/18 10:45 INR 1.4 12/15/18 10:45 APTT 32.2 Seconds (25.6-37.1) 12/15/18 10:45 Assessment and Plan (1) Atrial fibrillation with RVR Status: Acute (2) Cough Status: Acute (3) SOB (shortness of breath) Status: Acute (4) COPD (chronic obstructive pulmonary disease) Status: Chronic (5) Hypertension Status: Chronic - Assessment and Plan (Free Text) Plan: Continue current care
[2018-12-18] MEDS ORDERED: Levalbuterol 0.63 MG/3 ML Inhal Soln UD INH ONE (01:41)
[2018-12-18] MEDS: Sodium Chloride 0.9% 1,000 ML IV SCH (03:00)
[2018-12-18] MEDS: Levalbuterol 0.63 MG/3 ML Inhal Soln UD INH PRN (03:34)
[2018-12-18] MEDS: diltiaZEM 240 mg/24 Hours CD Cap PO SCH (08:43)
[2018-12-18] MEDS: Metoprolol Succinate 50 mg XL Tab PO SCH ×2 (08:44→21:25)
[2018-12-18] MEDS: Enoxaparin 100 mg Syringe SC SCH ×2 (08:44→21:00)
[2018-12-18 20:20] LABS: BLOOD UREA NITROGEN 44 mg/dl (9-20); CALCIUM 9.3 mg/dL (8.4-10.2); GFR NON-AFRICAN AMERICAN 54
--- NOTE | 2018-12-18 21:10 | CP.PCM.PN ---
Subjective - Date & Time of Evaluation Date of Evaluation: 12/18/18 Time of Evaluation: 15:20 - Subjective Subjective: Seen and examined at the bed side. Continue to be tachycardic. +Cough. Objective - Vital Signs/Intake and Output Vital Signs (last 24 hours): Temp Pulse Resp BP Pulse Ox 97.4 F L 80 18 157/93 H 93 L 12/18/18 20:34 12/18/18 20:34 12/18/18 20:34 12/18/18 20:34 12/18/18 20:34 - Medications Medications: Current Medications Acetaminophen (Tylenol 325mg Tab) 650 mg PO Q6 PRN PRN Reason: Pain, Mild (1-3) Last Admin: 12/18/18 16:45 Dose: 650 mg Diltiazem HCl (Cardizem Cd) 240 mg PO DAILY [facility] Last Admin: 12/18/18 08:43 Dose: 240 mg Docusate Sodium (Colace) 100 mg PO DAILY [facility] Last Admin: 12/18/18 08:44 Dose: 100 mg Enoxaparin Sodium (Lovenox) 100 mg SC Q12 [facility]; Protocol Last Admin: 12/18/18 08:44 Dose: 100 mg Levalbuterol HCl (Xopenex) 0.63 mg INH RQ6 PRN PRN Reason: Shortness of Breath Last Admin: 12/18/18 03:34 Dose: 0.63 mg Metoprolol Succinate (Toprol Xl) 50 mg PO Q12 [facility] Last Admin: 12/18/18 08:44 Dose: 50 mg Promethazine HCl/Dextromethorphan (Phenergan Dm Syrup) 5 ml PO Q6 PRN PRN Reason: Cough and congestion Last Admin: 12/15/18 22:00 Dose: 5 ml - Labs Labs: 12/17/18 05:10 12/18/18 19:50 PT 15.6 Seconds (9.8-13.1) H 12/15/18 10:45 INR 1.4 12/15/18 10:45 APTT 32.2 Seconds (25.6-37.1) 12/15/18 10:45 Assessment and Plan (1) Atrial fibrillation with RVR Status: Acute (2) Cough Status: Acute (3) Edema Status: Acute (4) SOB (shortness of breath) Status: Acute (5) COPD (chronic obstructive pulmonary disease) Status: Chronic - Assessment and Plan (Free Text) Plan: Continue Current Care
[2018-12-19 06:41] LABS: HEMOGLOBIN 13.8 g/dL (12.0-18.0); MEAN CELL VOLUME 97.2 fl (80.0-94.0); MEAN CORPUSCULAR HEMOGLOBIN 32.5 pg (27.0-31.0); MEAN CORPUSCULAR HGB CONC 33.4 g/dL (33.0-37.0); RBC 4.24 Mil/uL (4.40-5.90); RED CELL DISTRIBUTION WIDTH 14.8 % (11.5-14.5); WHITE BLOOD COUNT 6.7 K/uL (4.8-10.8)
[2018-12-19 06:44] LABS: BLOOD UREA NITROGEN 39 mg/dl (9-20); CALCIUM 9.2 mg/dL (8.4-10.2); GFR NON-AFRICAN AMERICAN 59; HDL CHOLESTEROL 53 MG/DL (30-70)
[2018-12-19 06:54] LABS: LDL CHOLESTEROL 57 mg/dL (0-129)
[2018-12-19] MEDS: diltiaZEM 240 mg/24 Hours CD Cap PO SCH (08:39)
[2018-12-19] MEDS: Enoxaparin 100 mg Syringe SC SCH ×2 (08:40→22:21)
[2018-12-19] MEDS: Metoprolol Succinate 50 mg XL Tab PO SCH ×2 (08:40→22:22)
[2018-12-19] MEDS ORDERED: diltiaZEM 120 mg/24 Hours CD Cap PO ONE ×2 (14:20→14:40)
[2018-12-19] MEDS ORDERED: diltiaZEM 120 mg/24 Hours CD Cap PO SCH (14:30)
[2018-12-19] MEDS ORDERED: Potassium Chloride 20 mEq/15 ml LIQ UD PO ONE (17:31)
--- NOTE | 2018-12-19 17:36 | CP.PCM.PN ---
Subjective - Date & Time of Evaluation Date of Evaluation: 12/19/18 Time of Evaluation: 17:32 - Subjective Subjective: pt admits to feeling anxious. Objective - Vital Signs/Intake and Output Vital Signs (last 24 hours): Temp Pulse Resp BP Pulse Ox 98.2 F 112 H 20 134/90 96 12/19/18 16:08 12/19/18 16:08 12/19/18 16:08 12/19/18 16:08 12/19/18 16:08 - Medications Medications: Current Medications Acetaminophen (Tylenol 325mg Tab) 650 mg PO Q6 PRN PRN Reason: Pain, Mild (1-3) Last Admin: 12/18/18 16:45 Dose: 650 mg Diltiazem HCl (Cardizem Cd) 360 mg PO DAILY [facility] Docusate Sodium (Colace) 100 mg PO DAILY [facility] Last Admin: 12/19/18 08:41 Dose: 100 mg Enoxaparin Sodium (Lovenox) 100 mg SC Q12 [facility]; Protocol Last Admin: 12/19/18 08:40 Dose: 100 mg Metoprolol Succinate (Toprol Xl) 50 mg PO Q12 [facility] Last Admin: 12/19/18 08:40 Dose: 50 mg Potassium Chloride (Potassium Chloride Oral Soln) 40 meq PO ONCE ONE Stop: 12/19/18 17:32 Promethazine HCl/Dextromethorphan (Phenergan Dm Syrup) 5 ml PO Q6 PRN PRN Reason: Cough and congestion Last Admin: 12/15/18 22:00 Dose: 5 ml - Labs Labs: 12/19/18 04:30 12/19/18 04:30 PT 15.6 Seconds (9.8-13.1) H 12/15/18 10:45 INR 1.4 12/15/18 10:45 APTT 32.2 Seconds (25.6-37.1) 12/15/18 10:45 - Constitutional Appears: Well - Head Exam Head Exam: ATRAUMATIC, NORMAL INSPECTION, NORMOCEPHALIC - Eye Exam Eye Exam: EOMI, Normal appearance, PERRL. absent: Conjunctival injection, Nystagmus, Periorbital swelling, Periorbital tenderness, Scleral icterus Pupil Exam: NORMAL ACCOMODATION, PERRL - ENT Exam ENT Exam: Mucous Membranes Moist, Normal Exam. absent: Mucous Membranes Dry, Normal External Ear Exam, Normal Oropharynx, TM's Normal Bilaterally - Neck Exam Neck Exam: Full ROM, Normal Inspection. absent: Lymphadenopathy, Meningismus, Tenderness, Thyromegaly - Respiratory Exam Respiratory Exam: Clear to Ausculation Bilateral, NORMAL BREATHING PATTERN. absent: Accessory Muscle Use, Chest Wall Tenderness, Decreased Breath Sounds, Prolonged Expiratory Phase, Rales, Rhonchi, Wheezes, Respiratory Distress, Stridor - Cardiovascular Exam Cardiovascular Exam: Tachycardia, Irregular Rhythm, +S1, +S2, Murmur. absent: Bradycardia, Clicks, Diastolic murmur, Gallop, REGULAR RHYTHM, JVD, RRR, Rubs, +S4 - GI/Abdominal Exam GI & Abdominal Exam: Soft, Normal Bowel Sounds. absent: Bruit, Distended, Firm, Guarding, Rigid, Tenderness, Diminished Bowel Sounds, Hernia, Hyperactive Bowel Sounds, Hypoactive Bowel Sounds, Organomegaly, Pulsatile Mass, Rebound, Mass - Extremities Exam Extremities Exam: Full ROM, Normal Capillary Refill, Normal Inspection. absent: Joint Swelling, Pedal Edema - Back Exam Back Exam: NORMAL INSPECTION. absent: CVA tenderness (L), CVA tenderness (R), Full ROM, muscle spasm, paraspinal tenderness, rash noted, tenderness, vertebral tenderness - Neurological Exam Neurological Exam: Alert, Awake, CN II-XII Intact, Normal Gait, Oriented x3. absent: Abnormal Gait, Altered, Motor Sensory Deficit, Reflexes Normal - Psychiatric Exam Psychiatric exam: Anxious, Normal Mood. absent: Agitated, Depressed, Flat Affect, Homicidal Ideation, Manic, Suicidal Ideation - Skin Skin Exam: Dry, Intact, Normal Color, Warm. absent: Abrasion, Cyanosis, Diaphoretic, Erythema, Mottled, Pallor, Pallor, Petechiae, Rash, Urticaria, Vesicles Assessment and Plan (1) Anxiety Status: Acute (2) Atrial fibrillation with RVR Status: Acute (3) SOB (shortness of breath) Status: Acute (4) Cough Status: Acute (5) Depression (emotion) Status: Acute (6) Hypertension Status: Chronic (7) Fatigue Status: Acute (8) Edema Status: Acute - Assessment and Plan (Free Text) Plan: HR WAS CONTROLLED ALL DAY YESTERDAY. TODAY PTS HR INCREASED. WILL INCREASE CARDIZEM CD TO 360. GIVE EXTRA 120MG TODAY ON TOP OF PRIOR 240MG DOSE. CONT ANTICOAG. WILL D/C NEBS. WOULD CONSIDER ANXIETY MEDICATION. I DECIDED AGAINST CARDIOVERSION PT HAS A HX OF MED NON COMPLIANCE. IF CARDIOVERTED AND NONCOMPLIANT WITH ANTICOAG HIS RISK OF CVA WOULD BE HIGHER THEN IF HE REMAINS IN AFIB. IF PT PROVES COMPLIANCE AND F.U. THEN WILL CONSIDER IN FUTURE. 45 MIN TOTAL CARE TIME.
[2018-12-20] MEDS: Metoprolol Succinate 50 mg XL Tab PO SCH ×2 (08:19→21:15)
[2018-12-20] MEDS: diltiaZEM 180 mg/24 Hours CD Cap PO SCH (08:19)
--- NOTE | 2018-12-20 10:15 | US ---
Date of service: 12/19/2018 PROCEDURE: Bilateral lower extremity venous duplex Doppler. HISTORY: Rule out DVT, hypoxemia COMPARISON: None available. TECHNIQUE: Bilateral common femoral, superficial femoral, popliteal and posterior tibial veins were evaluated. Flow was assessed with color Doppler, compressibility, assessment of phasic flow and augmentation response. FINDINGS: COMMON FEMORAL VEIN: Right CFV: Unremarkable. Left CFV: Unremarkable. SUPERFICIAL FEMORAL VEIN: Right SFV: Unremarkable. Left SFV: Unremarkable. POPLITEAL VEIN: Right Popliteal: Unremarkable. Left Popliteal: Unremarkable. POSTERIOR TIBIAL VEIN: Right PTV: Unremarkable. Left PTV: Unremarkable. OTHER FINDINGS: None. IMPRESSION: No evidence of deep venous thrombosis.
[2018-12-20] MEDS: Enoxaparin 120 mg Syringe SC SCH ×2 (13:00→21:13)
[2018-12-20] MEDS ORDERED: diltiaZEM 120 mg/24 Hours CD Cap PO ONE (14:39)
--- NOTE | 2018-12-20 16:19 | CP.PCM.PN ---
Subjective - Date & Time of Evaluation Date of Evaluation: 12/20/18 Time of Evaluation: 16:19 Objective - Vital Signs/Intake and Output Vital Signs (last 24 hours): Temp Pulse Resp BP Pulse Ox 97.4 F L 83 18 114/88 94 L 12/20/18 11:48 12/20/18 11:48 12/20/18 11:48 12/20/18 11:48 12/20/18 11:48 - Medications Medications: Current Medications Acetaminophen (Tylenol 325mg Tab) 650 mg PO Q6 PRN PRN Reason: Pain, Mild (1-3) Last Admin: 12/18/18 16:45 Dose: 650 mg Alprazolam (Xanax) 0.5 mg PO Q12 [facility] Stop: 12/27/18 10:31 Last Admin: 12/20/18 11:15 Dose: 0.5 mg Diltiazem HCl (Cardizem Cd) 360 mg PO DAILY [facility] Last Admin: 12/20/18 08:19 Dose: 360 mg Docusate Sodium (Colace) 100 mg PO DAILY [facility] Last Admin: 12/20/18 08:22 Dose: 100 mg Enoxaparin Sodium (Lovenox) 110 mg SC Q12 [facility]; Protocol Metoprolol Succinate (Toprol Xl) 50 mg PO Q12 [facility] Last Admin: 12/20/18 08:19 Dose: 50 mg Promethazine HCl/Dextromethorphan (Phenergan Dm Syrup) 5 ml PO Q6 PRN PRN Reason: Cough and congestion Last Admin: 12/15/18 22:00 Dose: 5 ml - Labs Labs: 12/19/18 04:30 12/19/18 04:30 PT 15.6 Seconds (9.8-13.1) H 12/15/18 10:45 INR 1.4 12/15/18 10:45 APTT 32.2 Seconds (25.6-37.1) 12/15/18 10:45 Assessment and Plan (1) Anxiety Status: Acute (2) Atrial fibrillation with RVR Status: Acute (3) SOB (shortness of breath) Status: Acute (4) Cough Status: Acute (5) Depression (emotion) Status: Acute (6) Hypertension Status: Chronic (7) Fatigue Status: Acute (8) Edema Status: Acute
[2018-12-20] MEDS ORDERED: Potassium Chloride 20 mEq/15 ml LIQ UD PO ONE (21:27)
--- NOTE | 2018-12-20 21:27 | CP.PCM.PN ---
Subjective - Date & Time of Evaluation Date of Evaluation: 12/20/18 Time of Evaluation: 21:24 - Subjective Subjective: PT WITHOUT COMPLAINTS. HR IS LABILE. SOME SHORT PAUSES NOTED ON TELE. Objective - Vital Signs/Intake and Output Vital Signs (last 24 hours): Temp Pulse Resp BP Pulse Ox 97.2 F L 99 H 20 123/76 95 12/20/18 20:08 12/20/18 21:15 12/20/18 20:08 12/20/18 21:15 12/20/18 20:08 - Medications Medications: Current Medications Acetaminophen (Tylenol 325mg Tab) 650 mg PO Q6 PRN PRN Reason: Pain, Mild (1-3) Last Admin: 12/18/18 16:45 Dose: 650 mg Alprazolam (Xanax) 0.5 mg PO Q12 [facility] Stop: 12/27/18 10:31 Last Admin: 12/20/18 11:15 Dose: 0.5 mg Diltiazem HCl (Cardizem Cd) 360 mg PO DAILY [facility] Last Admin: 12/20/18 08:19 Dose: 360 mg Docusate Sodium (Colace) 100 mg PO DAILY [facility] Last Admin: 12/20/18 08:22 Dose: 100 mg Enoxaparin Sodium (Lovenox) 110 mg SC Q12 [facility]; Protocol Last Admin: 12/20/18 21:13 Dose: 110 mg Metoprolol Succinate (Toprol Xl) 50 mg PO Q12 [facility] Last Admin: 12/20/18 21:15 Dose: 50 mg Promethazine HCl/Dextromethorphan (Phenergan Dm Syrup) 5 ml PO Q6 PRN PRN Reason: Cough and congestion Last Admin: 12/15/18 22:00 Dose: 5 ml - Labs Labs: 12/19/18 04:30 12/19/18 04:30 PT 15.6 Seconds (9.8-13.1) H 12/15/18 10:45 INR 1.4 12/15/18 10:45 APTT 32.2 Seconds (25.6-37.1) 12/15/18 10:45 - Constitutional Appears: Non-toxic - Head Exam Head Exam: ATRAUMATIC, NORMAL INSPECTION, NORMOCEPHALIC - Eye Exam Eye Exam: EOMI, Normal appearance, PERRL. absent: Conjunctival injection, Nystagmus, Periorbital swelling, Periorbital tenderness, Scleral icterus Pupil Exam: NORMAL ACCOMODATION, PERRL - ENT Exam ENT Exam: Mucous Membranes Moist, Normal Exam. absent: Mucous Membranes Dry, Normal External Ear Exam, Normal Oropharynx, TM's Normal Bilaterally - Neck Exam Neck Exam: Full ROM, Normal Inspection. absent: Lymphadenopathy, Meningismus, Tenderness, Thyromegaly - Respiratory Exam Respiratory Exam: Clear to Ausculation Bilateral, NORMAL BREATHING PATTERN. absent: Accessory Muscle Use, Chest Wall Tenderness, Decreased Breath Sounds, Prolonged Expiratory Phase, Rales, Rhonchi, Wheezes, Respiratory Distress, Stridor - Cardiovascular Exam Cardiovascular Exam: Tachycardia, Irregular Rhythm, +S1, +S2, Murmur. absent: Bradycardia, Clicks, Diastolic murmur, Gallop, REGULAR RHYTHM, JVD, RRR, Rubs, +S4 - GI/Abdominal Exam GI & Abdominal Exam: Soft, Normal Bowel Sounds. absent: Bruit, Distended, Firm, Guarding, Rigid, Tenderness, Diminished Bowel Sounds, Hernia, Hyperactive Bowel Sounds, Hypoactive Bowel Sounds, Organomegaly, Pulsatile Mass, Rebound, Mass - Rectal Exam Rectal Exam: Deferred - Extremities Exam Extremities Exam: Full ROM, Normal Capillary Refill, Normal Inspection. absent: Joint Swelling, Pedal Edema - Back Exam Back Exam: NORMAL INSPECTION. absent: CVA tenderness (L), CVA tenderness (R), Full ROM, muscle spasm, paraspinal tenderness, rash noted, tenderness, vertebral tenderness - Neurological Exam Neurological Exam: Alert, Awake, CN II-XII Intact, Normal Gait, Oriented x3. absent: Abnormal Gait, Altered, Motor Sensory Deficit, Reflexes Normal - Psychiatric Exam Psychiatric exam: Normal Affect, Normal Mood - Skin Skin Exam: Dry, Intact, Normal Color, Warm Assessment and Plan (1) Anxiety Status: Acute (2) Atrial fibrillation with RVR Status: Acute (3) SOB (shortness of breath) Status: Acute (4) Cough Status: Acute (5) Depression (emotion) Status: Acute (6) Hypertension Status: Chronic (7) Fatigue Status: Acute (8) Edema Status: Acute - Assessment and Plan (Free Text) Plan: WOULD CONSIDER TREATING ANXIETY I WOULD NOT TITRATE AVN BLOCKERS GIVEN SHORT PAUSES CONT ANTICOAG MONITOR BP WILL FOLLOW
--- NOTE | 2018-12-20 22:03 | CP.PCM.PN ---
Subjective - Date & Time of Evaluation Date of Evaluation: 12/19/18 Time of Evaluation: 15:15 - Subjective Subjective: Seen and examined at the bed side. No new complaint. Objective - Vital Signs/Intake and Output Vital Signs (last 24 hours): Temp Pulse Resp BP Pulse Ox 97.2 F L 99 H 20 123/76 95 12/20/18 20:08 12/20/18 21:15 12/20/18 20:08 12/20/18 21:15 12/20/18 20:08 - Medications Medications: Current Medications Acetaminophen (Tylenol 325mg Tab) 650 mg PO Q6 PRN PRN Reason: Pain, Mild (1-3) Last Admin: 12/18/18 16:45 Dose: 650 mg Alprazolam (Xanax) 0.5 mg PO Q12 [facility] Stop: 12/27/18 10:31 Last Admin: 12/20/18 11:15 Dose: 0.5 mg Diltiazem HCl (Cardizem Cd) 360 mg PO DAILY [facility] Last Admin: 12/20/18 08:19 Dose: 360 mg Docusate Sodium (Colace) 100 mg PO DAILY [facility] Last Admin: 12/20/18 08:22 Dose: 100 mg Enoxaparin Sodium (Lovenox) 110 mg SC Q12 [facility]; Protocol Last Admin: 12/20/18 21:13 Dose: 110 mg Metoprolol Succinate (Toprol Xl) 50 mg PO Q12 [facility] Last Admin: 12/20/18 21:15 Dose: 50 mg Promethazine HCl/Dextromethorphan (Phenergan Dm Syrup) 5 ml PO Q6 PRN PRN Reason: Cough and congestion Last Admin: 12/15/18 22:00 Dose: 5 ml - Labs Labs: 12/19/18 04:30 12/19/18 04:30 PT 15.6 Seconds (9.8-13.1) H 12/15/18 10:45 INR 1.4 12/15/18 10:45 APTT 32.2 Seconds (25.6-37.1) 12/15/18 10:45 Assessment and Plan (1) Atrial fibrillation with RVR Status: Acute (2) Cough Status: Acute (3) Pleural effusion, bilateral Status: Acute (4) Chest pain Status: Acute (5) Hypertension Status: Chronic (6) COPD (chronic obstructive pulmonary disease) Status: Chronic - Assessment and Plan (Free Text) Plan: Continue current Care
--- NOTE | 2018-12-20 22:03 | CP.PCM.PN ---
Subjective - Date & Time of Evaluation Date of Evaluation: 12/20/18 Time of Evaluation: 19:25 - Subjective Subjective: No New complaint Objective - Vital Signs/Intake and Output Vital Signs (last 24 hours): Temp Pulse Resp BP Pulse Ox 97.2 F L 99 H 20 123/76 95 12/20/18 20:08 12/20/18 21:15 12/20/18 20:08 12/20/18 21:15 12/20/18 20:08 - Medications Medications: Current Medications Acetaminophen (Tylenol 325mg Tab) 650 mg PO Q6 PRN PRN Reason: Pain, Mild (1-3) Last Admin: 12/18/18 16:45 Dose: 650 mg Alprazolam (Xanax) 0.5 mg PO Q12 [facility] Stop: 12/27/18 10:31 Last Admin: 12/20/18 11:15 Dose: 0.5 mg Diltiazem HCl (Cardizem Cd) 360 mg PO DAILY [facility] Last Admin: 12/20/18 08:19 Dose: 360 mg Docusate Sodium (Colace) 100 mg PO DAILY [facility] Last Admin: 12/20/18 08:22 Dose: 100 mg Enoxaparin Sodium (Lovenox) 110 mg SC Q12 [facility]; Protocol Last Admin: 12/20/18 21:13 Dose: 110 mg Metoprolol Succinate (Toprol Xl) 50 mg PO Q12 [facility] Last Admin: 12/20/18 21:15 Dose: 50 mg Promethazine HCl/Dextromethorphan (Phenergan Dm Syrup) 5 ml PO Q6 PRN PRN Reason: Cough and congestion Last Admin: 12/15/18 22:00 Dose: 5 ml - Labs Labs: 12/19/18 04:30 12/19/18 04:30 PT 15.6 Seconds (9.8-13.1) H 12/15/18 10:45 INR 1.4 12/15/18 10:45 APTT 32.2 Seconds (25.6-37.1) 12/15/18 10:45 Assessment and Plan (1) Anemia Status: Acute (2) Atrial fibrillation with RVR Status: Acute (3) SOB (shortness of breath) Status: Acute (4) COPD (chronic obstructive pulmonary disease) Status: Chronic (5) CHF (congestive heart failure) Status: Acute (6) Chest pain Status: Acute (7) DVT prophylaxis Status: Acute (8) Depression (emotion) Status: Acute (9) Fall Status: Acute (10) Hypertension Status: Chronic - Assessment and Plan (Free Text) Plan: Continue current Care
--- NOTE | 2018-12-21 07:38 | CARD ---
APPROVED REPORT Date of service: 11/20/2018 EKG Measurement Heart [id number] <Conclusion> Atrial fibrillation with rapid ventricular response Nonspecific ST and T wave abnormality Abnormal ECG
[2018-12-21] MEDS ORDERED: Gadodiamide 287 MG/ML VIAL (15ML) IV ONE (09:33)
--- NOTE | 2018-12-21 09:37 | CT ---
Date of service: 12/20/2018 PROCEDURE: CT HEAD WITHOUT CONTRAST. HISTORY: mental status change, unsteady gait COMPARISON: Unenhanced head CT 12/16/2018. TECHNIQUE: Axial computed tomography images were obtained through the head/brain without intravenous contrast. Radiation dose: Total exam DLP = 1273.24 mGy-cm. This CT exam was performed using one or more of the following dose reduction techniques: Automated exposure control, adjustment of the mA and/or kV according to patient size, and/or use of iterative reconstruction technique. FINDINGS: HEMORRHAGE: No intracranial hemorrhage. BRAIN: Good corticomedullary differentiation is seen. Reiterated diffuse cerebral atrophy and chronic microangiopathy. No suspicious extra-axial fluid collection is identified and the midline brain anatomy appears grossly nonfocal as imaged. No mass effect identified. Dilated perivascular spaces are favored over chronic lacunes at the bilateral external capsules/inferior basal ganglia once again. Small chronic lacune is seen the right thalamus with chronic lacune left thalamus not well seen probably due to small size and partial volume averaging. VENTRICLES: Unremarkable. No hydrocephalus. CALVARIUM: Unremarkable. PARANASAL SINUSES: Unremarkable as visualized. No significant inflammatory changes. MASTOID AIR CELLS: Unremarkable as visualized. No inflammatory changes. OTHER FINDINGS: None. IMPRESSION: Stable age related neuro degenerative changes are identified compared to 12/16/2018 CT. Chronic lacune right thalamus reiterated. Follow-up CT or MRI are available if clinically warranted. Preliminary report provided by Elian, 12/20/2018, 8 p.m..
[2018-12-21] MEDS: Enoxaparin 120 mg Syringe SC SCH ×2 (09:40→21:05)
[2018-12-21] MEDS: Metoprolol Succinate 50 mg XL Tab PO SCH ×2 (09:40→21:05)
[2018-12-21] MEDS: diltiaZEM 180 mg/24 Hours CD Cap PO SCH (09:41)
--- NOTE | 2018-12-21 13:41 | RAD ---
Date of service: 12/21/2018 HISTORY: CHF. COMPARISON: 12/17/2018. TECHNIQUE: Chest PA and lateral views FINDINGS: LUNGS: Worsening, more confluent multifocal infiltrates right lung. PLEURA: Stable bilateral pleural effusions. CARDIOVASCULAR: Atherosclerotic calcifications identified primarily aortic arch. Normal cardiac size. No pulmonary vascular congestion. OSSEOUS STRUCTURES: No significant abnormalities. VISUALIZED UPPER ABDOMEN: Normal. OTHER FINDINGS: None. IMPRESSION: Worsening infiltrates right lung. Stable bilateral pleural effusions.
--- NOTE | 2018-12-21 15:18 | CP.PCM.CON ---
History of Present Illness - History of Present Illness History of Present Illness: Neurology consult dictated Mr. Bowen has baseline dementia and is now very sleepy with ativan 3mg and is unarouseable secondary to this med. History is obtained from the chart and chart was reviewed. A/P: There is no sign of hydrocephalus or stroke at this time. We are not able to obtain MRI Brain, so we will repeat CT head in am. PLan; 1. Aspirin 325 mg po daily. 2. EEG am. DR. tan Neurology Past Patient History - Infectious Disease Hx of Infectious Diseases: None - Tetanus Immunizations Tetanus Immunization: Unknown - Past Medical History & Family History Past Medical History?: Yes - Past Social History Smoking Status: Never Smoked Chewing Tobacco Use: No Cigar Use: No Alcohol: None Drugs: Denies Home Situation {Lives}: Alone - CARDIAC Hx Cardiac Disorders: Yes Hx Atrial Fibrillation: Yes Hx Hypercholesterolemia: Yes Hx Hypertension: Yes Hx Peripheral Edema: Yes - PULMONARY Hx Respiratory Disorders: No Hx Emphysema: No Hx Pulmonary Embolism: No Hx Sleep Apnea: No - NEUROLOGICAL Hx Dementia: No Hx Seizures: No Hx Transient Ischemic Attacks (TIA): No - HEENT Hx HEENT Problems: No Hx Blind: No Hx Cataracts: No Hx Deafness: No Hx Difficulty Chewing: No Hx Epistaxis: No Hx Glaucoma: No Hx Macular Degeneration: No - RENAL Hx Chronic Kidney Disease: No - ENDOCRINE/METABOLIC Hx Endocrine Disorders: No Hx Hyperthyroidism: No Hx Hypothyroidism: No - HEMATOLOGICAL/ONCOLOGICAL Hx Blood Disorders: No Hx Sickle Cell Disease: No - INTEGUMENTARY Hx Dermatological Problems: No Other/Comment: Skin Ca with removal of lesion from left upper arm - MUSCULOSKELETAL/RHEUMATOLOGICAL Hx Musculoskeletal Disorders: No Hx Fractures: No Hx Rheumatoid Arthritis: No - GASTROINTESTINAL Hx Gastrointestinal Disorders: No Hx Diverticulitis: No Hx Gall Bladder Disease: No Hx Gastritis: No - GENITOURINARY/GYNECOLOGICAL Hx Genitourinary Disorders: No Hx Sexually Transmitted Disorders: No - PSYCHIATRIC Hx Psychophysiologic Disorder: Yes - SURGICAL HISTORY Hx Surgeries: Yes Hx Tonsillectomy: No - ANESTHESIA Hx Anesthesia: Yes Hx Anesthesia Reactions: No Hx Malignant Hyperthermia: No Meds Allergies/Adverse Reactions: Allergies Allergy/AdvReac Type Severity Reaction Status Date / Time No Known Allergies Allergy Verified 06/06/14 04:18 - Medications Medications: Current Medications Acetaminophen (Tylenol 325mg Tab) 650 mg PO Q6 PRN PRN Reason: Pain, Mild (1-3) Last Admin: 12/18/18 16:45 Dose: 650 mg Alprazolam (Xanax) 0.5 mg PO Q12 [facility] Stop: 12/27/18 10:31 Last Admin: 12/21/18 12:47 Dose: 0.5 mg Diltiazem HCl (Cardizem Cd) 360 mg PO DAILY [facility] Last Admin: 12/21/18 09:41 Dose: 360 mg Docusate Sodium (Colace) 100 mg PO DAILY [facility] Last Admin: 12/21/18 09:42 Dose: 100 mg Enoxaparin Sodium (Lovenox) 110 mg SC Q12 [facility]; Protocol Last Admin: 12/21/18 09:40 Dose: 110 mg Furosemide (Lasix) 40 mg IVP BID [facility] Last Admin: 12/21/18 09:50 Dose: 40 mg Azithromycin 500 mg/ Sodium (Chloride) 250 mls @ 250 mls/hr IVPB DAILY [facility]; Protocol Piperacillin Sod/Tazobactam (Sod 3.375 gm/ Sodium Chloride) 100 mls @ 100 mls/hr IVPB Q6 [facility]; Protocol Levalbuterol HCl (Xopenex) 0.63 mg IH RTID [facility] Metoprolol Succinate (Toprol Xl) 50 mg PO Q12 [facility] Last Admin: 12/21/18 09:40 Dose: 50 mg Promethazine HCl/Dextromethorphan (Phenergan Dm Syrup) 5 ml PO Q6 PRN PRN Reason: Cough and congestion Last Admin: 12/15/18 22:00 Dose: 5 ml Results - Vital Signs Recent Vital Signs: Last Vital Signs Temp 97.3 F L 12/21/18 12:00 Pulse 113 H 12/21/18 12:00 Resp 18 12/21/18 12:00 BP 127/88 12/21/18 12:00 Pulse Ox 90 L 12/21/18 12:00 - Labs Result Diagrams: 12/19/18 04:30 12/19/18 04:30 Labs: Laboratory Results - last 24 hr 12/21/18 12/21/18 09:45 12:20 Ammonia < 9 L NT-Pro-B Natriuret Pep 2560 H
[2018-12-21] MEDS ORDERED: Albuterol-Ipratrop 3 mg / 0.5 (3 ml) UD INH SCH (16:00)
[2018-12-21] MEDS: Piperacillin/Tazobact 3.375 GM in Sodium Chloride 0.9% 100 ML IVPB SCH ×2 (16:47→21:06)
[2018-12-21] MEDS: Azithromycin 500 MG in Sodium Chloride 0.9% 250 ML IVPB SCH (16:48)
[2018-12-21] MEDS: Levalbuterol 0.63 MG/3 ML Inhal Soln UD IH SCH (19:04)
--- NOTE | 2018-12-21 23:56 | CP.PCM.PN ---
Subjective - Date & Time of Evaluation Date of Evaluation: 12/21/18 Time of Evaluation: 18:15 - Subjective Subjective: Seen and examned at the bed side. Continue to cough with associated Dyspnea. CXR showed PPN, Poss Aspiration. Objective - Vital Signs/Intake and Output Vital Signs (last 24 hours): Temp Pulse Resp BP Pulse Ox 97.6 F 120 H 20 127/84 94 L 12/21/18 20:09 12/21/18 21:05 12/21/18 20:09 12/21/18 21:05 12/21/18 20:09 - Medications Medications: Current Medications Acetaminophen (Tylenol 325mg Tab) 650 mg PO Q6 PRN PRN Reason: Pain, Mild (1-3) Last Admin: 12/18/18 16:45 Dose: 650 mg Alprazolam (Xanax) 0.5 mg PO Q12 [facility] Stop: 12/27/18 10:31 Last Admin: 12/21/18 21:05 Dose: 0.5 mg Diltiazem HCl (Cardizem Cd) 360 mg PO DAILY [facility] Last Admin: 12/21/18 09:41 Dose: 360 mg Docusate Sodium (Colace) 100 mg PO DAILY [facility] Last Admin: 12/21/18 09:42 Dose: 100 mg Enoxaparin Sodium (Lovenox) 110 mg SC Q12 [facility]; Protocol Last Admin: 12/21/18 21:05 Dose: 110 mg Furosemide (Lasix) 40 mg IVP BID [facility] Last Admin: 12/21/18 16:49 Dose: 40 mg Azithromycin 500 mg/ Sodium (Chloride) 250 mls @ 250 mls/hr IVPB DAILY [facility]; Protocol Last Admin: 12/21/18 16:48 Dose: 250 mls/hr Piperacillin Sod/Tazobactam (Sod 3.375 gm/ Sodium Chloride) 100 mls @ 100 mls/hr IVPB Q6 [facility]; Protocol Last Admin: 12/21/18 21:06 Dose: 100 mls/hr Lactic Acid (Lac-Hydrin 12% Lotion (225 G)) 1 applic TOP BID [facility] Last Admin: 12/21/18 17:47 Dose: 1 applic Levalbuterol HCl (Xopenex) 0.63 mg IH RTID [facility] Last Admin: 12/21/18 19:04 Dose: 0.63 mg Metoprolol Succinate (Toprol Xl) 50 mg PO Q12 [facility] Last Admin: 12/21/18 21:05 Dose: 50 mg Promethazine HCl/Dextromethorphan (Phenergan Dm Syrup) 5 ml PO Q6 PRN PRN Reason: Cough and congestion Last Admin: 12/15/18 22:00 Dose: 5 ml - Labs Labs: 12/19/18 04:30 12/19/18 04:30 PT 15.6 Seconds (9.8-13.1) H 12/15/18 10:45 INR 1.4 12/15/18 10:45 APTT 32.2 Seconds (25.6-37.1) 12/15/18 10:45 Assessment and Plan - Assessment and Plan (Free Text) Assessment: Aspiration PNA A fib with RVR COPD with Exacerbation HTN
[2018-12-22] MEDS: Piperacillin/Tazobact 3.375 GM in Sodium Chloride 0.9% 100 ML IVPB SCH ×4 (03:03→21:44)
[2018-12-22 06:16] LABS: HEMOGLOBIN 13.3 g/dL (12.0-18.0); MEAN CELL VOLUME 97.6 fl (80.0-94.0); MEAN CORPUSCULAR HEMOGLOBIN 32.3 pg (27.0-31.0); MEAN CORPUSCULAR HGB CONC 33.1 g/dL (33.0-37.0); RBC 4.14 Mil/uL (4.40-5.90); RED CELL DISTRIBUTION WIDTH 14.5 % (11.5-14.5); WHITE BLOOD COUNT 6.9 K/uL (4.8-10.8)
[2018-12-22 06:44] LABS: ALBUMIN 3.2 g/dL (3.5-5.0); ALT/SGPT 96 U/L (21-72); AST/SGOT 65 U/L (17-59); BLOOD UREA NITROGEN 35 mg/dl (9-20); CALCIUM 8.6 mg/dL (8.4-10.2); GFR NON-AFRICAN AMERICAN > 60
[2018-12-22] MEDS: Levalbuterol 0.63 MG/3 ML Inhal Soln UD IH SCH ×3 (07:48→19:06)
--- NOTE | 2018-12-22 09:10 | CP.PCM.CON ---
History of Present Illness - History of Present Illness History of Present Illness: Infcetious Disease Consultation Note- Asked to see this patient at the request of for pneumonia and help with antibiotic management. HPI- History obtained from the medical chart and the nurse as the patient has AMS and lethargic . pt. is a 73 yeay old male BIBA with c/o SOB and inability to sleep X 3 weeks, was given 20 mg and 25 mg Cardizem boluses via EMS for rapid a fib (HR 150- 180s), HR decreased to 90s after medication. Pt reports CHAMBERLAIN and palpitations, no chest pain. I'm being now asked to see the patietn because he had CXR which was read as right infiltrates and also pt. apparently had change in mental status yesterday and is being seen by neuro and having neurological work up . as per nurse his brain CT was negative for any acute events. he is currently getting EEG reading. He is lethargic and when I askeh him how he feels he states rested but does not answer any other questions. as per nurse no cough noted and no diarrhea. Review of Systems - Review of Systems Review of Systems: ROS- Unable to obtain as pt. is lethargic and does not answer questions Past Patient History - Infectious Disease Hx of Infectious Diseases: None - Tetanus Immunizations Tetanus Immunization: Unknown - Past Medical History & Family History Past Medical History?: Yes - Past Social History Smoking Status: Never Smoked Chewing Tobacco Use: No Cigar Use: No Alcohol: None Drugs: Denies Home Situation {Lives}: Alone - CARDIAC Hx Cardiac Disorders: Yes Hx Atrial Fibrillation: Yes Hx Hypercholesterolemia: Yes Hx Hypertension: Yes Hx Peripheral Edema: Yes - PULMONARY Hx Respiratory Disorders: No Hx Emphysema: No Hx Pulmonary Embolism: No Hx Sleep Apnea: No - NEUROLOGICAL Hx Dementia: No Hx Seizures: No Hx Transient Ischemic Attacks (TIA): No - HEENT Hx HEENT Problems: No Hx Blind: No Hx Cataracts: No Hx Deafness: No Hx Difficulty Chewing: No Hx Epistaxis: No Hx Glaucoma: No Hx Macular Degeneration: No - RENAL Hx Chronic Kidney Disease: No - ENDOCRINE/METABOLIC Hx Endocrine Disorders: No Hx Hyperthyroidism: No Hx Hypothyroidism: No - HEMATOLOGICAL/ONCOLOGICAL Hx Blood Disorders: No Hx Sickle Cell Disease: No - INTEGUMENTARY Hx Dermatological Problems: No Other/Comment: Skin Ca with removal of lesion from left upper arm - MUSCULOSKELETAL/RHEUMATOLOGICAL Hx Musculoskeletal Disorders: No Hx Fractures: No Hx Rheumatoid Arthritis: No - GASTROINTESTINAL Hx Gastrointestinal Disorders: No Hx Diverticulitis: No Hx Gall Bladder Disease: No Hx Gastritis: No - GENITOURINARY/GYNECOLOGICAL Hx Genitourinary Disorders: No Hx Sexually Transmitted Disorders: No - PSYCHIATRIC Hx Psychophysiologic Disorder: Yes - SURGICAL HISTORY Hx Surgeries: Yes Hx Tonsillectomy: No - ANESTHESIA Hx Anesthesia: Yes Hx Anesthesia Reactions: No Hx Malignant Hyperthermia: No Meds Allergies/Adverse Reactions: Allergies Allergy/AdvReac Type Severity Reaction Status Date / Time No Known Allergies Allergy Verified 06/06/14 04:18 - Medications Medications: Current Medications Acetaminophen (Tylenol 325mg Tab) 650 mg PO Q6 PRN PRN Reason: Pain, Mild (1-3) Last Admin: 12/18/18 16:45 Dose: 650 mg Alprazolam (Xanax) 0.5 mg PO Q12 [facility] Stop: 12/27/18 10:31 Last Admin: 12/21/18 21:05 Dose: 0.5 mg Diltiazem HCl (Cardizem Cd) 360 mg PO DAILY [facility] Last Admin: 12/21/18 09:41 Dose: 360 mg Docusate Sodium (Colace) 100 mg PO DAILY [facility] Last Admin: 12/21/18 09:42 Dose: 100 mg Enoxaparin Sodium (Lovenox) 110 mg SC Q12 [facility]; Protocol Last Admin: 12/21/18 21:05 Dose: 110 mg Furosemide (Lasix) 40 mg IVP BID [facility] Last Admin: 12/21/18 16:49 Dose: 40 mg Azithromycin 500 mg/ Sodium (Chloride) 250 mls @ 250 mls/hr IVPB DAILY [facility]; Protocol Last Admin: 12/21/18 16:48 Dose: 250 mls/hr Piperacillin Sod/Tazobactam (Sod 3.375 gm/ Sodium Chloride) 100 mls @ 100 mls/hr IVPB Q6 [facility]; Protocol Last Admin: 12/22/18 03:03 Dose: 100 mls/hr Lactic Acid (Lac-Hydrin 12% Lotion (225 G)) 1 applic TOP BID [facility] Last Admin: 12/21/18 17:47 Dose: 1 applic Levalbuterol HCl (Xopenex) 0.63 mg IH RTID [facility] Last Admin: 12/22/18 07:48 Dose: 0.63 mg Metoprolol Succinate (Toprol Xl) 50 mg PO Q12 [facility] Last Admin: 12/21/18 21:05 Dose: 50 mg Promethazine HCl/Dextromethorphan (Phenergan Dm Syrup) 5 ml PO Q6 PRN PRN Reason: Cough and congestion Last Admin: 12/15/18 22:00 Dose: 5 ml Physical Exam - Constitutional Additional comments: lethargic - Neck Exam Neck exam: Positive for: Full Rom - Respiratory Exam Respiratory Exam: NORMAL BREATHING PATTERN Additional comments: decreased breath sounds at right base no wheezing - Cardiovascular Exam Cardiovascular Exam: Tachycardia, +S1, +S2 - GI/Abdominal Exam GI & Abdominal Exam: Normal Bowel Sounds, Soft Additional comments: NT, ND - Extremities Exam Extremities exam: Positive for: normal inspection - Neurological Exam Neurological exam: Altered Results - Vital Signs Recent Vital Signs: Last Vital Signs Temp 97.4 F L 12/22/18 08:00 Pulse 106 H 12/22/18 08:00 Resp 18 12/22/18 08:00 BP 134/73 12/22/18 08:00 Pulse Ox 90 L 12/22/18 08:00 - Labs Result Diagrams: 12/22/18 04:50 12/22/18 04:50 Labs: Laboratory Results - last 24 hr 12/21/18 12/21/18 12/22/18 09:45 12:20 04:50 WBC 6.9 RBC 4.14 L Hgb 13.3 Hct 40.4 MCV 97.6 H MCH 32.3 H MCHC 33.1 RDW 14.5 Plt Count 236 Sodium Potassium Chloride Carbon Dioxide Anion Gap BUN Creatinine Est GFR ( Amer) Est GFR (Non-Af Amer) Random Glucose Calcium Phosphorus Magnesium Total Bilirubin AST ALT Alkaline Phosphatase Ammonia < 9 L NT-Pro-B Natriuret Pep 2560 H Total Protein Albumin Globulin Albumin/Globulin Ratio 12/22/18 04:50 WBC RBC Hgb Hct MCV MCH MCHC RDW Plt Count Sodium 137 Potassium 4.2 Chloride 101 Carbon Dioxide 30 Anion Gap 10 BUN 35 H Creatinine 1.1 Est GFR ( Amer) > 60 Est GFR (Non-Af Amer) > 60 Random Glucose 100 Calcium 8.6 Phosphorus 4.5 Magnesium 2.1 Total Bilirubin 1.2 AST 65 H ALT 96 H Alkaline Phosphatase 146 H D Ammonia NT-Pro-B Natriuret Pep Total Protein 6.5 Albumin 3.2 L Globulin 3.3 Albumin/Globulin Ratio 1.0 Accession No. : [id number] Patient Name / ID : ASHISH Gutierrez / [id number] Exam Date : 12/21/2018 10:50:56 ( Approved ) Study Comment : Sex / Age : M 3Y Creator : harley arguello Dictator : Migel Bear MD Work Manager : Product Management Analyst : Migel Bear MD Approver2 : Report Date : 12/21/2018 11:02:03 My Comment : Date of service: 12/21/2018 HISTORY: CHF. COMPARISON: 12/17/2018. TECHNIQUE: Chest PA and lateral views FINDINGS: LUNGS: Worsening, more confluent multifocal infiltrates right lung. PLEURA: Stable bilateral pleural effusions. CARDIOVASCULAR: Atherosclerotic calcifications identified primarily aortic arch. Normal cardiac size. No pulmonary vascular congestion. OSSEOUS STRUCTURES: No significant abnormalities. VISUALIZED UPPER ABDOMEN: Normal. OTHER FINDINGS: None. IMPRESSION: Worsening infiltrates right lung. Stable bilateral pleural effusions. Accession No. : [id number] Patient Name / ID : ASHISH MCKENNA / [id number] Exam Date : 12/22/2018 11:49:16 ( Approved ) Study Comment : Sex / Age : M Y Creator : jakob prasad Dictator : Corinne Griffith MD Work Manager : Product Management Analyst : Corinne Griffith MD Approver2 : Report Date : 12/22/2018 11:55:01 My Comment : Date of service: 12/22/2018 PROCEDURE: CT HEAD WITHOUT CONTRAST. HISTORY: Altered mental status; r/o stroke; unable to have MRI done COMPARISON: None available. TECHNIQUE: Axial computed tomography images were obtained through the head/brain without intravenous contrast. Radiation dose: Total exam DLP = 847.53 mGy-cm. This CT exam was performed using one or more of the following dose reduction techniques: Automated exposure control, adjustment of the mA and/or kV according to patient size, and/or use of iterative reconstruction technique. FINDINGS: HEMORRHAGE: No intracranial hemorrhage. BRAIN: The chronic lacunar infarctions in both basal ganglia on thalami. There are mild chronic microangiopathic changes. There is no mass, mass effect or abnormal extra-axial fluid collection. There is no territorial infarction. The midline sagittal structures are normal. VENTRICLES: There is mild age-related global parenchymal volume loss and proportionate enlargement of the ventricles and cortical sulci. There is a cavum septum pellucidum. CALVARIUM: There is no calvarial fracture or extracranial soft tissue swelling. PARANASAL SINUSES: Predominantly clear. MASTOID AIR CELLS: Predominantly clear. OTHER FINDINGS: None. IMPRESSION: No acute intracranial abnormality. Chronic lacunar infarctions in bilateral basal ganglia and thalami. Moderate chronic microangiopathic changes and mild age-related global parenchymal volume loss. Assessment & Plan (1) Atrial fibrillation with RVR Status: Acute (2) Altered mental status Status: Acute (3) Pneumonia Status: Acute - Assessment and Plan (Free Text) Assessment: A/P- 73 year old male with a.fib and now found to have altered mental status and Right sided pneumonia. pt. could have possibly aspirated adn hence the right sided pneumonia. afebrile normal wbc count elevated liver enzymes PLan- check sputum cx. check blood cx. agree with the IV zosyn that was already initiated by the admitting doc. can continue with zithromax but advise only 3 days. add metronidazole to the regimen for anaerobic coverage. check urine legionella AG. check mycoplasma serology. neurology work up in progress. monitor aspiration precautions. check hepatitis profile in light of elevated LFTS. follow chest CT result. all labs and imaging and chart notes reviewed. Thank you for allowing me to take part in the care of this patient.
[2018-12-22] MEDS: diltiaZEM 180 mg/24 Hours CD Cap PO SCH (09:26)
[2018-12-22] MEDS: Enoxaparin 120 mg Syringe SC SCH ×2 (09:29→21:45)
[2018-12-22] MEDS: Metoprolol Succinate 50 mg XL Tab PO SCH ×2 (09:31→21:46)
[2018-12-22] MEDS: Azithromycin 500 MG in Sodium Chloride 0.9% 250 ML IVPB SCH (09:37)
--- NOTE | 2018-12-22 10:22 | CP.PCM.PN ---
Subjective - Date & Time of Evaluation Date of Evaluation: 12/22/18 Time of Evaluation: 10:20 - Subjective Subjective: Neuro Follow-Up Note: Mr. Bowen was evaluated this morning at bedside. Today he is awake and alert. He does note that he was confused yesterday. He currently has no complaints and states that he is feeling better. He makes comments throughout exam of being brainwashed and "don't let it happen to you." ROS negative per pt. Objective - Vital Signs/Intake and Output Vital Signs (last 24 hours): Temp Pulse Resp BP Pulse Ox 97.4 F L 106 H 18 134/73 90 L 12/22/18 08:00 12/22/18 09:31 12/22/18 08:00 12/22/18 09:31 12/22/18 08:00 - Medications Medications: Current Medications Acetaminophen (Tylenol 325mg Tab) 650 mg PO Q6 PRN PRN Reason: Pain, Mild (1-3) Last Admin: 12/18/18 16:45 Dose: 650 mg Alprazolam (Xanax) 0.5 mg PO Q12 [facility] Stop: 12/27/18 10:31 Last Admin: 12/22/18 09:32 Dose: Not Given Diltiazem HCl (Cardizem Cd) 360 mg PO DAILY [facility] Last Admin: 12/22/18 09:26 Dose: 360 mg Docusate Sodium (Colace) 100 mg PO DAILY [facility] Last Admin: 12/22/18 09:26 Dose: 100 mg Enoxaparin Sodium (Lovenox) 110 mg SC Q12 [facility]; Protocol Last Admin: 12/22/18 09:29 Dose: 110 mg Furosemide (Lasix) 40 mg IVP BID [facility] Last Admin: 12/22/18 09:29 Dose: 40 mg Azithromycin 500 mg/ Sodium (Chloride) 250 mls @ 250 mls/hr IVPB DAILY [facility]; Protocol Last Admin: 12/22/18 09:37 Dose: 250 mls/hr Piperacillin Sod/Tazobactam (Sod 3.375 gm/ Sodium Chloride) 100 mls @ 100 mls/hr IVPB Q6 [facility]; Protocol Last Admin: 12/22/18 09:38 Dose: 100 mls/hr Lactic Acid (Lac-Hydrin 12% Lotion (225 G)) 1 applic TOP BID [facility] Last Admin: 12/22/18 09:28 Dose: 1 applic Levalbuterol HCl (Xopenex) 0.63 mg IH RTID [facility] Last Admin: 12/22/18 07:48 Dose: 0.63 mg Metoprolol Succinate (Toprol Xl) 50 mg PO Q12 [facility] Last Admin: 12/22/18 09:31 Dose: 50 mg Promethazine HCl/Dextromethorphan (Phenergan Dm Syrup) 5 ml PO Q6 PRN PRN Reason: Cough and congestion Last Admin: 12/15/18 22:00 Dose: 5 ml - Labs Labs: 12/22/18 04:50 12/22/18 04:50 PT 15.6 Seconds (9.8-13.1) H 12/15/18 10:45 INR 1.4 12/15/18 10:45 APTT 32.2 Seconds (25.6-37.1) 12/15/18 10:45 - Constitutional Appears: No Acute Distress - Head Exam Head Exam: ATRAUMATIC, NORMAL INSPECTION, NORMOCEPHALIC - Eye Exam Eye Exam: EOMI, Normal appearance Pupil Exam: NORMAL ACCOMODATION, PERRL - ENT Exam ENT Exam: Mucous Membranes Moist, Normal Exam - Neck Exam Neck Exam: Full ROM, Normal Inspection - Respiratory Exam Respiratory Exam: absent: NORMAL BREATHING PATTERN (sob noted) - Cardiovascular Exam Cardiovascular Exam: Tachycardia - Extremities Exam Extremities Exam: Full ROM, Pedal Edema. absent: Calf Tenderness Additional comments: BLE edematous with redness and warm. Able to move all extremities with generalized weakness likely 2/2 deco nditioning. - Back Exam Back Exam: Full ROM - Neurological Exam Neurological Exam: Alert, Awake, CN II-XII Intact, Oriented x3, Reflexes Normal Neuro motor strength exam: Left Upper Extremity: 4, Right Upper Extremity: 4, Left Lower Extremity: 3, Right Lower Extremity: 3 Additional comments: AAOx3; able to name 3 objects on bedside table and repeat. Speech clear, fluid Generalized weakness No tremors or abnormal movements Gait not assessed. - Psychiatric Exam Psychiatric exam: Normal Mood Additional comments: speaks about being brainwashed; odd affect; cooperative though with exam and interview - Skin Additional comments: BLE edematous with redness and warm. Assessment and Plan (1) Altered mental status Assessment & Plan: Imaging reviewed: -CT head (12/20/18): Stable age related neuro degenerative changes are identified compared to 12/16/2018 CT. Chronic lacune right thalamus reiterated. Follow-up CT or MRI are available if clinically warranted. -CT Head (12/16/18): No acute intracranial findings appreciable. No fracture identified. Stable age-related degenerative changes are appreciated which remain age-appropriate as compared prior unenhanced head CT 11/20/2018. -Recommend MRI Brain without contrast, however, pt is unable to tolerate the test. Repeat non-contrast CT head today to re-eval acute changes, r/o stroke. -EEG x1 hour to r/o seizures as a cause of AMS. -Recommend psych consult--pt commented during exam about being brainwashed; has an odd affect. -Continue supportive care. -Continue PT -Notify neuro of acute changes. Shayy Rodriguez, CARMEN, AIR POLLUTION ENGINEER d/w Dr. Barnett Status: Acute
--- NOTE | 2018-12-22 13:10 | CT ---
Date of service: 12/22/2018 PROCEDURE: CT HEAD WITHOUT CONTRAST. HISTORY: Altered mental status; r/o stroke; unable to have MRI done COMPARISON: None available. TECHNIQUE: Axial computed tomography images were obtained through the head/brain without intravenous contrast. Radiation dose: Total exam DLP = 847.53 mGy-cm. This CT exam was performed using one or more of the following dose reduction techniques: Automated exposure control, adjustment of the mA and/or kV according to patient size, and/or use of iterative reconstruction technique. FINDINGS: HEMORRHAGE: No intracranial hemorrhage. BRAIN: The chronic lacunar infarctions in both basal ganglia on thalami. There are mild chronic microangiopathic changes. There is no mass, mass effect or abnormal extra-axial fluid collection. There is no territorial infarction. The midline sagittal structures are normal. VENTRICLES: There is mild age-related global parenchymal volume loss and proportionate enlargement of the ventricles and cortical sulci. There is a cavum septum pellucidum. CALVARIUM: There is no calvarial fracture or extracranial soft tissue swelling. PARANASAL SINUSES: Predominantly clear. MASTOID AIR CELLS: Predominantly clear. OTHER FINDINGS: None. IMPRESSION: No acute intracranial abnormality. Chronic lacunar infarctions in bilateral basal ganglia and thalami. Moderate chronic microangiopathic changes and mild age-related global parenchymal volume loss.
--- NOTE | 2018-12-22 16:43 | CT ---
Date of service: 12/22/2018 PROCEDURE: CT Chest without contrast HISTORY: cough, pna, r/o aspiration COMPARISON: Plain radiographs from 12/21/2018 TECHNIQUE: Contiguous axial images were obtained through the chest without intravenous contrast enhancement. Sagittal and coronal reconstructions were performed. Radiation dose: Total exam DLP = 607.92 mGy-cm. This CT exam was performed using one or more of the following dose reduction techniques: Automated exposure control, adjustment of the mA and/or kV according to patient size, and/or use of iterative reconstruction technique. FINDINGS: LUNGS: There is multifocal patchy ground-glass attenuation with interlobular septal thickening in the right upper lobe, middle lobe and lower lobe. There is more confluent airspace disease with air bronchogram in the lateral aspect of the right lower lobe. There is patchy ground-glass attenuation in the left upper lobe. MEDIASTINUM: There aneurysm of the ascending aorta measuring 4.4 x 4.4 cm.. There is mild cardiomegaly. Main pulmonary artery unremarkable. No vascular congestion. Subcentimeter mediastinal lymph nodes are likely reactive. There are early aortic atherosclerotic calcifications. PLEURA: Small right and moderate left pleural effusions. No pneumothorax. BONES: No fracture. No destructive lesion. There is diffuse bone demineralization and multilevel degenerative changes in the spine. UPPER ABDOMEN: Grossly unremarkable. OTHER FINDINGS: There is mild diffuse anasarca. IMPRESSION: 1. Multifocal patchy ground-glass attenuation in the right lung and left upper lobe could represent aspiration pneumonia versus pulmonary edema. Clinical correlation and follow-up is advised. 2. More confluent airspace disease with air bronchogram in the lateral right lower lobe likely represents pneumonia. 3. Small right and moderate left pleural effusions. 4. Aneurysm of the ascending aorta measuring 4.4 x 4.4 cm.
--- NOTE | 2018-12-22 17:26 | CP.PCM.PN ---
Subjective - Date & Time of Evaluation Date of Evaluation: 12/22/18 Time of Evaluation: 17:23 - Subjective Subjective: PT REMAINS TACHYCARDIC AND DYSPNIC. HE IS CO COUGH, FATIGUE, SOB, AND DYSPNEA ON EXERTION. PT APPEARS CONFUSED AT TIMES. HIS MS APPEARS TO WAX AND WANE. Objective - Vital Signs/Intake and Output Vital Signs (last 24 hours): Temp Pulse Resp BP Pulse Ox 97.7 F 120 H 20 134/84 92 L 12/22/18 16:24 12/22/18 16:24 12/22/18 16:24 12/22/18 17:00 12/22/18 16:24 - Medications Medications: Current Medications Acetaminophen (Tylenol 325mg Tab) 650 mg PO Q6 PRN PRN Reason: Pain, Mild (1-3) Last Admin: 12/18/18 16:45 Dose: 650 mg Alprazolam (Xanax) 0.5 mg PO Q12 [facility] Stop: 12/27/18 10:31 Last Admin: 12/22/18 09:32 Dose: Not Given Diltiazem HCl (Cardizem Cd) 360 mg PO DAILY [facility] Last Admin: 12/22/18 09:26 Dose: 360 mg Docusate Sodium (Colace) 100 mg PO DAILY [facility] Last Admin: 12/22/18 09:26 Dose: 100 mg Enoxaparin Sodium (Lovenox) 110 mg SC Q12 [facility]; Protocol Last Admin: 12/22/18 09:29 Dose: 110 mg Furosemide (Lasix) 40 mg IVP DAILY [facility] Azithromycin 500 mg/ Sodium (Chloride) 250 mls @ 250 mls/hr IVPB DAILY [facility]; Protocol Last Admin: 12/22/18 09:37 Dose: 250 mls/hr Piperacillin Sod/Tazobactam (Sod 3.375 gm/ Sodium Chloride) 100 mls @ 100 mls/hr IVPB Q6 [facility]; Protocol Last Admin: 12/22/18 16:59 Dose: 100 mls/hr Metronidazole (Flagyl 500mg/100ml Ns) 100 mls @ 100 mls/hr IVPB Q12 [facility]; Protocol Lactic Acid (Lac-Hydrin 12% Lotion (225 G)) 1 applic TOP BID [facility] Last Admin: 12/22/18 17:04 Dose: 1 applic Levalbuterol HCl (Xopenex) 0.63 mg IH RTID [facility] Last Admin: 12/22/18 13:24 Dose: 0.63 mg Metoprolol Succinate (Toprol Xl) 50 mg PO Q12 [facility] Last Admin: 12/22/18 09:31 Dose: 50 mg Promethazine HCl/Dextromethorphan (Phenergan Dm Syrup) 5 ml PO Q6 PRN PRN Reason: Cough and congestion Last Admin: 12/15/18 22:00 Dose: 5 ml - Labs Labs: 12/22/18 04:50 12/22/18 04:50 PT 15.6 Seconds (9.8-13.1) H 12/15/18 10:45 INR 1.4 12/15/18 10:45 APTT 32.2 Seconds (25.6-37.1) 12/15/18 10:45 - Constitutional Appears: Unkempt, Older Than Stated Age, Chronically Ill - Head Exam Head Exam: ATRAUMATIC, NORMAL INSPECTION, NORMOCEPHALIC - Eye Exam Eye Exam: EOMI, Normal appearance, PERRL. absent: Conjunctival injection, N ystagmus, Periorbital swelling, Periorbital tenderness, Scleral icterus Pupil Exam: NORMAL ACCOMODATION, PERRL - ENT Exam ENT Exam: Mucous Membranes Dry, Normal Exam. absent: Normal External Ear Exam, Normal Oropharynx, TM's Normal Bilaterally - Neck Exam Neck Exam: Full ROM. absent: Lymphadenopathy, Meningismus, Normal Inspection, Tenderness, Thyromegaly - Respiratory Exam Respiratory Exam: Decreased Breath Sounds, Rhonchi, Wheezes. absent: Accessory Muscle Use, Chest Wall Tenderness, Clear to Ausculation Bilateral, Prolonged Expiratory Phase, Rales, Respiratory Distress, Stridor, NORMAL BREATHING PATTERN - Cardiovascular Exam Cardiovascular Exam: Tachycardia, Irregular Rhythm, +S1, +S2, Murmur. absent: B radycardia, Clicks, Diastolic murmur, Gallop, REGULAR RHYTHM, JVD, RRR, Rubs, +S4 - GI/Abdominal Exam GI & Abdominal Exam: Soft, Normal Bowel Sounds. absent: Bruit, Distended, Firm, Guarding, Rigid, Tenderness, Diminished Bowel Sounds, Hernia, Hyperactive Bowel Sounds, Hypoactive Bowel Sounds, Organomegaly, Pulsatile Mass, Rebound, Mass - Rectal Exam Rectal Exam: Deferred - Extremities Exam Extremities Exam: Full ROM, Normal Capillary Refill, Normal Inspection. absent: Calf Tenderness, Joint Swelling, Pedal Edema, Tenderness - Back Exam Back Exam: NORMAL INSPECTION. absent: CVA tenderness (L), CVA tenderness (R), Full ROM, muscle spasm, paraspinal tenderness, rash noted, tenderness, vertebral tenderness - Neurological Exam Neurological Exam: Alert, Awake, CN II-XII Intact, Normal Gait, Oriented x3. absent: Abnormal Gait, Altered, Motor Sensory Deficit, Reflexes Normal - Psychiatric Exam Psychiatric exam: Normal Affect, Normal Mood. absent: Agitated, Anxious, Depressed, Flat Affect, Homicidal Ideation, Manic, Suicidal Ideation - Skin Skin Exam: Dry, Intact, Normal Color, Warm. absent: Abrasion, Cyanosis, Diaphoretic, Erythema, Mottled, Pallor, Pallor, Petechiae, Rash, Urticaria, Vesicles Assessment and Plan (1) Multifocal pneumonia Status: Acute (2) Altered mental status Status: Acute (3) SOB (shortness of breath) Status: Acute (4) Cough Status: Acute (5) Atrial fibrillation with RVR Status: Acute (6) Depression (emotion) Status: Resolved (7) Hypertension Status: Chronic (8) Fatigue Status: Acute (9) Anxiety Status: Suspected (10) Edema Status: Resolved (11) Prerenal azotemia Status: Acute - Assessment and Plan (Free Text) Plan: would decrease lasix dose given prerenal state. pt has nml ef. his initial cxr was done while sig dehydrated and likely why infiltrates not noted. THIS APPEARS TO BE ASPIRATION PNA. PTS HR WILL REMAIN DIFFICULT TO CONTROL IF HE IS PRERENAL. CONSIDERATION FOR SADIQ CV REVISITED, HOWEVER GIVEN HX OF MED NONCOMPLIANCE AND PTS MENTAL STATUS THAT IS WAXING AND WANING, I WILL DEFER AND CONTINUE MEDICAL MANAGEMENT. 45 MIN TOTAL CARE TIME.
[2018-12-22 20:42] LABS: HEPATITIS B SURFACE AG Negative (NEGATIVE)
[2018-12-22 20:48] LABS: HEPATITIS A IGM NEGATIVE (NEGATIVE); HEPATITIS B CORE AB NEGATIVE (NEGATIVE)
[2018-12-22 21:00] LABS: HEPATITIS C ANTIBODY NEGATIVE (NEGATIVE)
[2018-12-22] MEDS: metroNIDAZOLE 500mg/100ml NS 100 ML IVPB SCH (21:42)
[2018-12-22 22:45] LABS: URINE BILIRUBIN NEGATIVE (NEGATIVE); URINE BLOOD NEGATIVE (NEGATIVE); URINE CLARITY CLEAR (Clear); URINE COLOR YELLOW (YELLOW); URINE GLUCOSE (UA) NEG (NEGATIVE); URINE LEUKOCYTE ESTERASE NEG Leu/uL (Negative); URINE PROTEIN NEGATIVE (NEGATIVE); URINE UROBILINOGEN 0.2-1.0 mg/dL (0.2-1.0)
[2018-12-23] MEDS: Piperacillin/Tazobact 3.375 GM in Sodium Chloride 0.9% 100 ML IVPB SCH ×2 (03:55→10:31)
[2018-12-23 05:55] LABS: HEMOGLOBIN 13.1 g/dL (12.0-18.0); MEAN CELL VOLUME 97.3 fl (80.0-94.0); MEAN CORPUSCULAR HEMOGLOBIN 32.5 pg (27.0-31.0); MEAN CORPUSCULAR HGB CONC 33.4 g/dL (33.0-37.0); RBC 4.04 Mil/uL (4.40-5.90); RED CELL DISTRIBUTION WIDTH 14.6 % (11.5-14.5); WHITE BLOOD COUNT 6.1 K/uL (4.8-10.8)
[2018-12-23 06:07] LABS: ALB/GLOB RATIO 0.9 (1.0-2.1); ALBUMIN 3.1 g/dL (3.5-5.0); ALT/SGPT 90 U/L (21-72); AST/SGOT 56 U/L (17-59); BILIRUBIN,DIRECT 0.6 mg/ml (0.0-0.4); BLOOD UREA NITROGEN 34 mg/dl (9-20); CALCIUM 8.1 mg/dL (8.4-10.2); GFR NON-AFRICAN AMERICAN > 60
[2018-12-23] MEDS: Levalbuterol 0.63 MG/3 ML Inhal Soln UD IH SCH ×3 (07:36→19:08)
[2018-12-23] MEDS ORDERED: Metoprolol 1 mg/ml Inj IVP ONE (09:34)
[2018-12-23] MEDS: metroNIDAZOLE 500mg/100ml NS 100 ML IVPB SCH ×2 (09:36→21:33)
--- NOTE | 2018-12-23 09:50 | CON ---
DATE: 12/21/2018 HISTORY OF PRESENT ILLNESS: This is a 73 year-old male with past medical history of hypertension, hypercholesterolemia and insomnia for 3 weeks. He was given medication such as Cardizem for rapid AFib in the emergency room. The patient was noted to have onset of seizure and focal weakness by the staff. He was admitted to telemetry. This afternoon he was scheduled to go for MRI of the brain but could not tolerate, hence received Ativan. REVIEW OF SYSTEMS: Not possible because of the patient's mental status at this time. PAST MEDICAL HISTORY: As above. PAST SURGICAL HISTORY: tonsillectomy. FAMILY HISTORY: Not known. ALLERGIES: NO KNOWN DRUG ALLERGIES. MEDS AT HOME: Metoprolol, Diltiazem, lisinopril. PHYSICAL EXAMINATION: The patient is lethargic but arousable. He is not following commands. . Cranial nerves intact. He is not moving all extremities to commands but he does appear to be strong bilaterally. He is sitting in a chair, slumped over after receiving 2 mg of Ativan. Reflexes are +1 upper and lower bilaterally. LABORATORY DATA: White count 10.5, hemoglobin 14, hematocrit 42.3. Sodium 140, potassium 4, BUN 44, creatinine 1.4, glucose 113. EKG shows AFib at 106. In addition, he was also found to have pneumonia, bilateral pleural effusion right greater than left. CAT scan of the head was done and shows no old stroke but it did show profound atrophy in all regions especially temporal regions. Urine is normal. Triglycerides normal. Coags show D-dimer is 608. IMPRESSION: This is a 73-year-old male with severe dementia and a chief complaint of inability to walk. We will reassess him after the Ativan has worn off to further assess his motor capacity. At this time, there is no stroke noted. We will need an MRI of the brain. Hopefully, we will be able to obtain it. We will repeat CT head in the morning. Thank you for this interesting consult. Dr. Barnett, Neurology. Troy Barnett MD
--- NOTE | 2018-12-23 10:18 | CP.PCM.PN ---
Subjective - Date & Time of Evaluation Date of Evaluation: 12/23/18 Time of Evaluation: 10:18 - Subjective Subjective: ID Note- Patient seen and examined today. somewhat lethargic but easily arousable. as per nurse pt. had received xanax earlier today for controlling his HR. Objective - Vital Signs/Intake and Output Vital Signs (last 24 hours): Temp Pulse Resp BP Pulse Ox 97.7 F 76 20 164/80 H 90 L 12/23/18 08:00 12/23/18 08:00 12/23/18 08:00 12/23/18 08:00 12/23/18 08:00 - Medications Medications: Current Medications Acetaminophen (Tylenol 325mg Tab) 650 mg PO Q6 PRN PRN Reason: Pain, Mild (1-3) Last Admin: 12/18/18 16:45 Dose: 650 mg Alprazolam (Xanax) 0.5 mg PO Q12 [facility] Stop: 12/27/18 10:31 Last Admin: 12/22/18 23:08 Dose: 0.5 mg Diltiazem HCl (Cardizem Cd) 360 mg PO DAILY [facility] Last Admin: 12/22/18 09:26 Dose: 360 mg Docusate Sodium (Colace) 100 mg PO DAILY [facility] Last Admin: 12/22/18 09:26 Dose: 100 mg Enoxaparin Sodium (Lovenox) 110 mg SC Q12 [facility]; Protocol Last Admin: 12/22/18 21:45 Dose: 110 mg Furosemide (Lasix) 40 mg IVP DAILY [facility] Azithromycin 500 mg/ Sodium (Chloride) 250 mls @ 250 mls/hr IVPB DAILY [facility]; Protocol Last Admin: 12/22/18 09:37 Dose: 250 mls/hr Piperacillin Sod/Tazobactam (Sod 3.375 gm/ Sodium Chloride) 100 mls @ 100 mls/hr IVPB Q6 [facility]; Protocol Last Admin: 12/23/18 03:55 Dose: 100 mls/hr Metronidazole (Flagyl 500mg/100ml Ns) 100 mls @ 100 mls/hr IVPB Q12 [facility]; Protocol Last Admin: 12/22/18 21:42 Dose: 100 mls/hr Lactic Acid (Lac-Hydrin 12% Lotion (225 G)) 1 applic TOP BID [facility] Last Admin: 12/22/18 17:04 Dose: 1 applic Levalbuterol HCl (Xopenex) 0.63 mg IH RTID [facility] Last Admin: 12/23/18 07:36 Dose: 0.63 mg Metoprolol Succinate (Toprol Xl) 50 mg PO Q12 [facility] Last Admin: 12/22/18 21:46 Dose: 50 mg Promethazine HCl/Dextromethorphan (Phenergan Dm Syrup) 5 ml PO Q6 PRN PRN Reason: Cough and congestion Last Admin: 12/15/18 22:00 Dose: 5 ml - Labs Labs: - Additional Findings Additional findings: - Constitutional Additional comments: lethargic - Neck Exam Neck exam: Positive for: Full Rom - Respiratory Exam Respiratory Exam: NORMAL BREATHING PATTERN Additional comments: decreased breath sounds at right base no wheezing - Cardiovascular Exam Cardiovascular Exam: Tachycardia, +S1, +S2 - GI/Abdominal Exam GI & Abdominal Exam: Normal Bowel Sounds, Soft Additional comments: NT, ND - Extremities Exam Extremities exam: Positive for: normal inspection - Neurological Exam Neurological exam: lethargic but can answer some questions Laboratory Results - last 72 hr 12/21/18 12/21/18 12/22/18 09:45 12:20 04:50 WBC 6.9 RBC 4.14 L Hgb 13.3 Hct 40.4 MCV 97.6 H MCH 32.3 H MCHC 33.1 RDW 14.5 Plt Count 236 ESR Sodium Potassium Chloride Carbon Dioxide Anion Gap BUN Creatinine Est GFR ( Amer) Est GFR (Non-Af Amer) Random Glucose Calcium Phosphorus Magnesium Total Bilirubin Direct Bilirubin AST ALT Alkaline Phosphatase Ammonia < 9 L NT-Pro-B Natriuret Pep 2560 H Total Protein Albumin Globulin Albumin/Globulin Ratio Urine Color Urine Clarity Urine pH Ur Specific Surrency Urine Protein Urine Glucose (UA) Urine Ketones Urine Blood Urine Nitrate Urine Bilirubin Urine Urobilinogen Ur Leukocyte Esterase Urine RBC (Auto) Urine Microscopic WBC Hepatitis A IgM Ab Hep Bs Antigen Hep B Core IgM Ab Hepatitis C Antibody Ur L.pneumophila Ag Mycoplasma pneumon IgM 12/22/18 12/22/18 12/22/18 04:50 16:49 16:49 WBC RBC Hgb Hct MCV MCH MCHC RDW Plt Count ESR Sodium 137 Potassium 4.2 Chloride 101 Carbon Dioxide 30 Anion Gap 10 BUN 35 H Creatinine 1.1 Est GFR ( Amer) > 60 Est GFR (Non-Af Amer) > 60 Random Glucose 100 Calcium 8.6 Phosphorus 4.5 Magnesium 2.1 Total Bilirubin 1.2 Direct Bilirubin AST 65 H ALT 96 H Alkaline Phosphatase 146 H D Ammonia NT-Pro-B Natriuret Pep Total Protein 6.5 Albumin 3.2 L Globulin 3.3 Albumin/Globulin Ratio 1.0 Urine Color Urine Clarity Urine pH Ur Specific Surrency Urine Protein Urine Glucose (UA) Urine Ketones Urine Blood Urine Nitrate Urine Bilirubin Urine Urobilinogen Ur Leukocyte Esterase Urine RBC (Auto) Urine Microscopic WBC Hepatitis A IgM Ab Negative Hep Bs Antigen Negative Hep B Core IgM Ab Negative Hepatitis C Antibody Negative Ur L.pneumophila Ag Mycoplasma pneumon IgM Negative 12/22/18 12/22/18 12/23/18 17:25 22:35 04:35 WBC 6.1 RBC 4.04 L Hgb 13.1 Hct 39.3 MCV 97.3 H MCH 32.5 H MCHC 33.4 RDW 14.6 H Plt Count 228 ESR 62 H Sodium Potassium Chloride Carbon Dioxide Anion Gap BUN Creatinine Est GFR ( Amer) Est GFR (Non-Af Amer) Random Glucose Calcium Phosphorus Magnesium Total Bilirubin Direct Bilirubin AST ALT Alkaline Phosphatase Ammonia NT-Pro-B Natriuret Pep Total Protein Albumin Globulin Albumin/Globulin Ratio Urine Color Yellow Urine Clarity Clear Urine pH 6.0 Ur Specific Surrency 1.010 Urine Protein Negative Urine Glucose (UA) Neg Urine Ketones Negative Urine Blood Negative Urine Nitrate Negative Urine Bilirubin Negative Urine Urobilinogen 0.2-1.0 Ur Leukocyte Esterase Neg Urine RBC (Auto) 2 Urine Microscopic WBC 1 Hepatitis A IgM Ab Hep Bs Antigen Hep B Core IgM Ab Hepatitis C Antibody Ur L.pneumophila Ag Negative Mycoplasma pneumon IgM 12/23/18 04:35 WBC RBC Hgb Hct MCV MCH MCHC RDW Plt Count ESR Sodium 138 Potassium 3.6 Chloride 100 Carbon Dioxide 31 H Anion Gap 11 BUN 34 H Creatinine 1.1 Est GFR ( Amer) > 60 Est GFR (Non-Af Amer) > 60 Random Glucose 109 Calcium 8.1 L Phosphorus Magnesium 1.9 Total Bilirubin 1.0 Direct Bilirubin 0.6 H AST 56 ALT 90 H Alkaline Phosphatase 146 H Ammonia NT-Pro-B Natriuret Pep Total Protein 6.4 Albumin 3.1 L Globulin 3.3 Albumin/Globulin Ratio 0.9 L Urine Color Urine Clarity Urine pH Ur Specific Surrency Urine Protein Urine Glucose (UA) Urine Ketones Urine Blood Urine Nitrate Urine Bilirubin Urine Urobilinogen Ur Leukocyte Esterase Urine RBC (Auto) Urine Microscopic WBC Hepatitis A IgM Ab Hep Bs Antigen Hep B Core IgM Ab Hepatitis C Antibody Ur L.pneumophila Ag Mycoplasma pneumon IgM Microbiology 12/21/18 17:25 Blood-Venous Blood Culture - Preliminary NO GROWTH AFTER 24 HOURS 12/21/18 17:20 Blood-Venous Blood Culture - Preliminary NO GROWTH AFTER 24 HOURS Sex / Age : M / [id number] Creator : ciera jose Dictator : Corinne Griffith MD Trimmer Buffing Wheel : Boat Detailer : Corinne Griffith MD Approver2 : Report Date : 12/22/2018 15:33:53 My Comment : Date of service: 12/22/2018 PROCEDURE: CT Chest without contrast HISTORY: cough, pna, r/o aspiration COMPARISON: Plain radiographs from 12/21/2018 TECHNIQUE: Contiguous axial images were obtained through the chest without intravenous contrast enhancement. Sagittal and coronal reconstructions were performed. Radiation dose: Total exam DLP = 607.92 mGy-cm. This CT exam was performed using one or more of the following dose reduction techniques: Automated exposure control, adjustment of the mA and/or kV according to patient size, and/or use of iterative reconstruction technique. FINDINGS: LUNGS: There is multifocal patchy ground-glass attenuation with interlobular septal thickening in the right upper lobe, middle lobe and lower lobe. There is more confluent airspace disease with air bronchogram in the lateral aspect of the right lower lobe. There is patchy ground-glass attenuation in the left upper lobe. MEDIASTINUM: There aneurysm of the ascending aorta measuring 4.4 x 4.4 cm.. There is mild cardiomegaly. Main pulmonary artery unremarkable. No vascular congestion. Subcentimeter mediastinal lymph nodes are likely reactive. There are early aortic atherosclerotic calcifications. PLEURA: Small right and moderate left pleural effusions. No pneumothorax. BONES: No fracture. No destructive lesion. There is diffuse bone demineralization and multilevel degenerative changes in the spine. UPPER ABDOMEN: Grossly unremarkable. OTHER FINDINGS: There is mild diffuse anasarca. IMPRESSION: 1. Multifocal patchy ground-glass attenuation in the right lung and left upper lobe could represent aspiration pneumonia versus pulmonary edema. Clinical correlation and follow-up is advised. 2. More confluent airspace disease with air bronchogram in the lateral right lower lobe likely represents pneumonia. 3. Small right and moderate left pleural effusions. 4. Aneurysm of the ascending aorta measuring 4.4 x 4.4 cm. Assessment and Plan (1) Atrial fibrillation with RVR Status: Acute (2) Altered mental status Status: Acute (3) Pneumonia Status: Acute - Assessment and Plan (Free Text) Assessment: A/P- 73 year old male with a.fib and now found to have altered mental status and Right sided pneumonia. aspiration pneumonia of the right lung afebrile normal wbc count as per neuro - no acute neuro events and has underlying dementia possibly worsened by the pneumonia PLan- advise to d/c zithromax. advise to d/c zosyn. will start pt. on meropnem for broader coverage since right lung multifocal pneumonia. check sputum cx. can continue the metronidazole.
[2018-12-23] MEDS: Enoxaparin 120 mg Syringe SC SCH ×2 (10:28→21:34)
[2018-12-23] MEDS: Metoprolol Succinate 50 mg XL Tab PO SCH (10:30)
--- NOTE | 2018-12-23 10:30 | PCM.EEG ---
Electroencephalogram Report - Electroencephalogram Report Procedure Date: 12/22/18 Condition of Recording: Awake Interpretation: This is a 16-channel EEG, 1-channel EKG performed with the patient awake. Photic stimulation was performed as an activating procedure. A moderate amount of muscle and movement artifact activity was seen throughout the recording. With the patient awake, theta activity at 4-5 cps was seen in the posterior regions. Theta amplitude ranged between 10-30 mcv. Beta activity was seen in the frontal central region ranging between 18-25 Hz and amplitude ranged between 10-30 mcv. Photic stimulation was performed and was unremarkable. There were no significant asymmetries noted during wakefulness. There was no epileptiform activity seen. IMPRESSION: Abnormal awake EEG due to the presence of diffuse slowing of the background CLINICAL CORRELATION: This finding supports the diagnosis of a mild diffuse encephalopathy. Impression: IMPRESSION: Abnormal awake EEG due to the presence of diffuse slowing of the background CLINICAL CORRELATION: This finding supports the diagnosis of a mild diffuse encephalopathy. Conclusion: Abnormal EEG due to presence of (Diffuse encephalopathy. No epileptiform activity seen)
[2018-12-23] MEDS: Azithromycin 500 MG in Sodium Chloride 0.9% 250 ML IVPB SCH (10:31)
[2018-12-23] MEDS: diltiaZEM 180 mg/24 Hours CD Cap PO SCH (10:37)
[2018-12-23 10:47] LABS: MYCOPLASMA PNEUMONIAE IGM NEGATIVE (NEGATIVE)
--- NOTE | 2018-12-23 11:20 | CP.PCM.PN ---
Subjective - Date & Time of Evaluation Date of Evaluation: 12/23/18 Time of Evaluation: - Subjective Subjective: Neuro Follow-Up Note: Mr. Bowen was evaluated this morning at bedside. Today he is sleepier than yesterday, however, he received Ativan this morning. He is easily arousable to voice and light touch. He denies any new complaints and states that he feels "fine just tired." He is still SOB though he denies respiratory distress. D enies h/a, dizziness, visual changes, chest pain, abd pain, fever/chills, paresthesias. Objective - Vital Signs/Intake and Output Vital Signs (last 24 hours): Temp Pulse Resp BP Pulse Ox 97.7 F 76 20 164/80 H 90 L 12/23/18 08:00 12/23/18 10:30 12/23/18 08:00 12/23/18 10:32 12/23/18 08:00 - Medications Medications: Current Medications Acetaminophen (Tylenol 325mg Tab) 650 mg PO Q6 PRN PRN Reason: Pain, Mild (1-3) Last Admin: 12/18/18 16:45 Dose: 650 mg Alprazolam (Xanax) 0.5 mg PO Q12 [facility] Stop: 12/27/18 10:31 Last Admin: 12/23/18 10:34 Dose: 0.5 mg Diltiazem HCl (Cardizem Cd) 360 mg PO DAILY [facility] Last Admin: 12/23/18 10:37 Dose: 360 mg Docusate Sodium (Colace) 100 mg PO DAILY [facility] Last Admin: 12/23/18 10:29 Dose: 100 mg Enoxaparin Sodium (Lovenox) 110 mg SC Q12 [facility]; Protocol Last Admin: 12/23/18 10:28 Dose: 110 mg Furosemide (Lasix) 40 mg IVP DAILY [facility] Last Admin: 12/23/18 10:32 Dose: 40 mg Azithromycin 500 mg/ Sodium (Chloride) 250 mls @ 250 mls/hr IVPB DAILY [facility]; Protocol Last Admin: 12/23/18 10:31 Dose: 250 mls/hr Piperacillin Sod/Tazobactam (Sod 3.375 gm/ Sodium Chloride) 100 mls @ 100 mls/hr IVPB Q6 [facility]; Protocol Last Admin: 12/23/18 10:31 Dose: 100 mls/hr Metronidazole (Flagyl 500mg/100ml Ns) 100 mls @ 100 mls/hr IVPB Q12 [facility]; Protocol Last Admin: 12/23/18 09:36 Dose: 100 mls/hr Lactic Acid (Lac-Hydrin 12% Lotion (225 G)) 1 applic TOP BID [facility] Last Admin: 12/23/18 10:27 Dose: 1 applic Levalbuterol HCl (Xopenex) 0.63 mg IH RTID [facility] Last Admin: 12/23/18 07:36 Dose: 0.63 mg Metoprolol Succinate (Toprol Xl) 50 mg PO Q12 [facility] Last Admin: 12/23/18 10:30 Dose: 50 mg Promethazine HCl/Dextromethorphan (Phenergan Dm Syrup) 5 ml PO Q6 PRN PRN Reason: Cough and congestion Last Admin: 12/15/18 22:00 Dose: 5 ml - Labs Labs: 12/23/18 04:35 12/23/18 04:35 PT 15.6 Seconds (9.8-13.1) H 12/15/18 10:45 INR 1.4 12/15/18 10:45 APTT 32.2 Seconds (25.6-37.1) 12/15/18 10:45 - Constitutional Appears: No Acute Distress, Other (sleepy 2/2 ativan given this morning; does follow commands) - Head Exam Head Exam: ATRAUMATIC, NORMAL INSPECTION, NORMOCEPHALIC - Eye Exam Eye Exam: EOMI, PERRL Pupil Exam: NORMAL ACCOMODATION, PERRL - ENT Exam ENT Exam: Mucous Membranes Moist - Neck Exam Neck Exam: Full ROM, Normal Inspection - Respiratory Exam Respiratory Exam: absent: NORMAL BREATHING PATTERN Additional comments: sob - Extremities Exam Extremities Exam: Pedal Edema. absent: Calf Tenderness, Normal Inspection, Tenderness Additional comments: BLE edematous with redness and warm. Able to move all extremities with generalized weakness likely 2/2 deconditioning. - Neurological Exam Neurological Exam: Altered, CN II-XII Intact, Reflexes Normal Neuro motor strength exam: Left Upper Extremity: 4, Right Upper Extremity: 4, Left Lower Extremity: 3, Right Lower Extremity: 3 Additional comments: Today pt is sleepier than yesterday, though, he was given Ativan this morning just prior to exam. Easily arousable to voice and light touch. He still has periods of confusion; dementia He is able to follow commands Speech is clear No focal motor or sensory deficits Generalized weakness No tremors or abnormal movements Gait not assessed. - Psychiatric Exam Additional comments: sleepy today 2/2 ativan given - Skin Additional comments: BLE edematous with redness and warm. Assessment and Plan (1) Altered mental status Assessment & Plan: Imaging reviewed: -CT Head (12/22/18): No acute intracranial abnormality. Chronic lacunar infarctions in bilateral basal ganglia and thalami. Moderate chronic m icroangiopathic changes and mild age-related global parenchymal volume loss. -EEG (12/22/18): IMPRESSION: Abnormal awake EEG due to the presence of diffuse slowing of the background. CLINICAL CORRELATION: This finding supports the diagnosis of a mild diffuse encephalopathy. Conclusion: Abnormal EEG due to presence of (Diffuse encephalopathy. No epileptiform activity seen). -CT head (12/20/18): Stable age related neuro degenerative changes are identified compared to 12/16/2018 CT. Chronic lacune right thalamus reiterated. Follow-up CT or MRI are available if clinically warranted. -CT Head (12/16/18): No acute intracranial findings appreciable. No fracture identified. Stable age-related degenerative changes are appreciated which remain age-appropriate as compared prior unenhanced head CT 11/20/2018. -Likely metabolic encephalopathy due to infectious process with underlying severe dementia. -Continue PT, medications, current treatment, and supportive care. -Recommend psych consult--will defer to primary team. -Notify neuro of acute changes. No further recommendations from neurology standpoint. Please reconsult prn. Thank you for this consultation. Shayy Rodriguez, CARMEN, THREAD GRINDER d/w Dr. Barnett Status: Acute
[2018-12-23] MEDS ORDERED: Levalbuterol 0.63 MG/3 ML Inhal Soln UD IH ONE (15:10)
[2018-12-23] MEDS ORDERED: Chlorhexidine Gluconate 1 APPL/PKT TP ONE (15:14)
[2018-12-23] MEDS: Acetylcysteine 10% 4 ML IH SCH ×2 (15:20→19:08)
[2018-12-23 15:32] LABS: ABG ALLEN TEST YES; ARTERIAL BLOOD GAS O2 CAPACITY 20.4 mL/dL (16-24); ARTERIAL BLOOD GAS O2 CONTENT 16.4 ML/dL (15-23); ARTERIAL BLOOD GAS O2 SAT 80.2 % (95-98); ARTERIAL BLOOD GAS PCO2 91 mm/Hg (35-45); ARTERIAL BLOOD GAS PH 7.18 (7.35-7.45); ARTERIAL BLOOD GAS PO2 49 mm/Hg (80-100); ARTERIAL BLOOD GAS TCO2 36.8 mmol/L (22-28)
--- NOTE | 2018-12-23 15:55 | PCM.RRT ---
MACHINE ASSEMBLER SUPERVISOR Nurse Assessment - Situation MACHINE ASSEMBLER SUPERVISOR Responder Arrival Time: 03:32 I.Reason for MACHINE ASSEMBLER SUPERVISOR - A) Acute Change in Patient: Subjective: 69 yo male with PMH of HTN, Non-complian with meds, presented to ER due to SOB, admitted with Dx A fib with RVR. MACHINE ASSEMBLER SUPERVISOR was done today due hypoxia, upon arrival patient was lathergic, not fully awake or alert, patient vitals 138/109 Ox 77 Hr 119, ABG with PCO 2 of 91, PH 7.18. Due to acuity of patient, Intubation performed and patient transferred to ICU for further management. In ICU patient intubated BPM 12, Volume 0.5, Inspiration time 1.00, PEEP 0,flow 1.0 and 100% oxygen saturation. Intervention ABG Transfer to ICU Intubation Assessment and plan yo male with PMH of HTN, Non-compliant with meds, presented to ER due to SOB, admitted with Dx A fib with RVR. MACHINE ASSEMBLER SUPERVISOR called for Hypoxia Patient was placed in ICU intubated Vitals are have improved Oxygen sat >95% Patient Was awake but still not alert upon end of MACHINE ASSEMBLER SUPERVISOR possible due to hypercapnia Plan Continue monitoring Vitals Continue management as per ICU - Neurological Status (Select all that apply): Lethargic. absent: Alert - Respiratory Oxygen Delivery Method: Intubated - Constitutional Appears: In Acute Distress, Unkempt, Agitated, Confused - Head Head Exam: ATRAUMATIC, NORMAL INSPECTION, NORMOCEPHALIC - Respiratory Exam Respiratory Exam: Rales, Rhonchi, Respiratory Distress - Cardiovascular Exam Cardiovascular Exam: Tachycardia - GI/Abdominal Exam GI & Abdominal Exam: Soft, Normal Bowel Sounds - Neurological Exam Neurological Exam: Altered, Awake - Extremities Exam Additional comments: B/L lower extremities edema
--- NOTE | 2018-12-23 15:59 | PCM.PROC ---
Procedures Attestation:: I certify that I have explained the specified Operation(s) or Procedure(s), risks, benefits and reasonable alternatives to the Patient and/or other person responsible. The opportunity was given to ask questions and all questions answered - Intubation Time Out Performed: Yes Sedative: None Laryngoscope: Sandra (3) ET Tube Size: 8.0 ET Tube Uncuffed: Yes ET Tube Secured Locarion: Lips ET Tube Placement Confirmation: Visualized Passing Through Cords, Breath Sounds Equal Bilaterally, Confirmation w/Capnometry Patient Tolerated Procedure: Well, No Complications Procedure Immediate Complications: None Additional comments: Emergent intubation due to hypoxemic hypercapenic respiratory failure. Procedure performed with direct supervision of Dr. Roldan
[2018-12-23] MEDS ORDERED: Propofol 10 mg/ml Inj (20 ML) IV ONE (16:00)
[2018-12-23] MEDS ORDERED: Propofol 10 mg/ml 1,000 MG/100 ML VIAL ONE (16:09)
--- NOTE | 2018-12-23 16:36 | RAD ---
Date of service: 12/23/2018 HISTORY: intubation COMPARISON: 12/21/2018 TECHNIQUE: 1 view obtained. FINDINGS: LUNGS: Improved aeration of the right lung compared to the prior examination. Possible resolving pulmonary edema. Mild left perihilar opacity not appreciated previously. PLEURA: Small bilateral pleural effusion decreased in size from previous examination. No pneumothorax. CARDIOVASCULAR: No aortic atherosclerotic calcification present. Normal heart size. Nasogastric tube extends with its tip just beneath the level of the diaphragm. This should be advanced or replaced. Endotracheal tube with its tip at the level of the thoracic inlet. Consider advancement. No pulmonary vascular congestion. OSSEOUS STRUCTURES: No significant abnormalities. VISUALIZED UPPER ABDOMEN: Normal. OTHER FINDINGS: None. IMPRESSION: Improving diffuse right-sided pulmonary opacity. New mild left perihilar opacity. Mild decrease in size of small bilateral pleural effusions. Nasogastric tube tip just beneath the diaphragm and should be advanced or replaced. Endotracheal tube tip at the level of the thoracic inlet. Consider advancement of its position.
--- NOTE | 2018-12-23 16:57 | PCM.PROC ---
Procedures Attestation:: I certify that I have explained the specified Operation(s) or Procedure(s), risks, benefits and reasonable alternatives to the Patient and/or other person responsible. The opportunity was given to ask questions and all questions answered - Central Line Placement Right Femoral Triple Lumen Catheter Aseptic technique was employed throughout the procedure: Full sterile barriers (mask, hair cover, sterile gown, sterile gloves), Full body sterile drape, Chloraprep Antiseptic: 2 minute prep for Femoral CVP Time Out Performed: Yes Pt. Placed on Pulse Ox Monitor: Yes Central Line Prep: Chlorhexidine-Alcohol Combination Local Anesthesia Used: Lidocaine 1% Amount of Anesthesia Used (mls): 5 Ultrasound Used for Placement: No Central Line Lumen Inserted: triple Central Line Length: 30 cm Post Procedure: Sutured in Place, Good Blood Return, All Ports Aspirated, Flushed, Capped, Sterile Dressing Applied Secured by: Securement device Post procedure dressing: Clear vapor permeable, Chlorhexidine disc (Biopatch) Post Procedure X-Ray: No Patient Tolerated Procedure: Well Immediate Complications: None Additional Comments: Femoral site chosen due to daily therapeutic Lovenox administration, and otherwise unknown coags with most recent INR = 1.4 on 12/15/18.
--- NOTE | 2018-12-23 17:00 | PCM.PROC ---
Procedures Attestation:: I certify that I have explained the specified Operation(s) or Procedure(s), risks, benefits and reasonable alternatives to the Patient and/or other person responsible. The opportunity was given to ask questions and all questions answered - Arterial Line Right Femoral Aseptic technique was employed throughout the procedure: Hand Hygiene done prior to procedure, Full sterile barriers (mask, hair cover, sterile gown, sterile gloves), Full body sterile drape, Chloraprep Antiseptic: 2 minute prep for Femoral Time Out Performed: Yes Pt. placed on Pulse Ox Monitor: Yes Central Line Prep: Chlorhexidine-Alcohol Combination Ultrasound Used for Placement: No Gauge (Size): 20 gauge (6 inch angio catheter) Technique Used: Guide Wire Technique Secured by: Securement device Post procedure dressing: Clear vapor permeable, Chlorhexidine disc (Biopatch) Patient Tolerated Procedure: well Immediate Complications: none Additional Comments: Procedure done under emergent conditions in ICU for frequent ABGs and possible vasopressor titration. Femoral site chosen due to poorly palpable radial pulses, and unknown recent coags. Last set of coags over 1 week ago with INR 1.4 on 12/15/18 and recent daily administration of therapeutic Lovenox.
--- NOTE | 2018-12-23 17:13 | CP.CCUPN ---
<Sultan Donald - Last Filed: 12/23/18 18:04> CCU Subjective - Physician Review Subjective (Free Text): 12/23/18 17:04 History obtained from review of patients medical records. 69 year old Male with PMHx uncontrolled HTN, , PTSD, baseline dementia initially presented to ED on 12/15/18 for shortness of breath and inability to sleep x 3 days. Patient was found to have Afib with RVR in ED and was admitted for further management of atrial fibrillation. Over the course of patients stay, patient was reported to be more lethargic. Neurologist were consulted and patient had head CT negative for acute intracranial pathology. Patient was found to have right sided infiltrate on CXR on 12/21/18 and was started on Azithromycin and Zosyn. Today, HOG TENDER was called for increased lethargy. Patient was found to be obtunded with pulse ox of 77. Patient was transferred to ICU for further management. In ICU, ABG shows PCO2 of 91, PO2 49 and PH 7.18. Patient was emergently intubated with right femoral TLC and right arterial line were placed. PMHx: HTN, atrial fibrillation, dementia, PTSD Surgery hx: tonsillectomy Socialhx: unknown Family hx: unknown Allergies: NKDA Medications: Lisinorpil 10 mg po daily, Cardizem 300 mg po daily, Toprol XL 50 mg po BID CCU Objective - Vital Signs / Intake & Output Vital Signs (Last 4 hours): Vital Signs Temp Pulse Resp BP Pulse Ox 12/23/18 16:03 97.4 F L 117 H 16 157/98 H 97 Intake and Output (Last 8hrs): Intake & Output 12/23/18 12/23/18 12/23/18 06:59 14:59 22:59 Weight 102.058 kg 102.058 kg - Physical Exam Physical Exam Limitations: Positive for: Altered Mental Status (s/p intubation) Head: Positive for: Atraumatic, Normocephalic Pupils: Positive for: PERRL Mouth: Positive for: Other (s/p intubated) Respiratory/Chest: Positive for: Respiratory Distress. Negative for: Accessory Muscle Use, Wheezes Cardiovascular: Positive for: Normal S1, S2, Irregular Rhythm, Tachycardic Abdomen: Positive for: Distention, Normal Bowel Sounds. Negative for: Peritoneal Signs Upper Extremity: Positive for: Normal Inspection Lower Extremity: Positive for: Edema Skin: Positive for: Rashes (tiny multiple dark spots in the body) Psychiatric: Negative for: Alert, Oriented x 3 - Medications Active Medications: Active Medications Generic Name Dose Route Start Last Admin Trade Name Freq PRN Reason Stop Dose Admin Acetaminophen 650 mg 12/16/18 07:14 12/18/18 16:45 Tylenol 325mg Tab PO 650 mg Q6 PRN Administration Pain, Mild (1-3) Acetylcysteine 2 ml 12/23/18 15:13 Mucomyst 10% 4ml IH RBID NELLI Albuterol/Ipratropium 3 ml 12/23/18 20:00 Duoneb 3 Mg/0.5 Mg (3 Ml) Ud INH RQID NELLI Alprazolam 0.5 mg 12/20/18 10:30 12/23/18 10:34 Xanax PO 12/27/18 10:31 0.5 mg Q12 NELLI Administration Diltiazem HCl 360 mg 12/20/18 09:00 12/23/18 10:37 Cardizem Cd PO 360 mg DAILY NELLI Administration Docusate Sodium 100 mg 12/18/18 09:00 12/23/18 10:29 Colace PO 100 mg DAILY NELLI Administration Enoxaparin Sodium 110 mg 12/20/18 09:00 12/23/18 10:28 Lovenox SC 110 mg Q12 NELLI Administration Protocol Famotidine 20 mg 12/23/18 21:00 Pepcid IVP Q12 NELLI Furosemide 40 mg 12/23/18 09:00 12/23/18 10:32 Lasix IVP 40 mg DAILY NELLI Administration Metronidazole 100 mls @ 100 mls/hr 12/22/18 21:00 12/23/18 09:36 Flagyl 500mg/100ml Ns IVPB 100 mls/hr Q12 NELLI Administration Protocol Meropenem 1 gm/ Sodium 100 mls @ 100 mls/hr 12/23/18 17:00 Chloride IVPB Q8 NELLI Protocol Dexmedetomidine HCl 400 mcg/ 100 mls @ 5.1 mls/hr 12/23/18 15:59 Sodium Chloride IV 12/24/18 11:35 .[id number] ONE Protocol 0.2 MCG/KG/HR Vancomycin HCl 1 gm/ Sodium 250 mls @ 166.667 mls/hr 12/23/18 16:54 Chloride IVPB 12/23/18 18:23 STAT STA Protocol Vancomycin HCl 1 gm/ Sodium 250 mls @ 166.667 mls/hr 12/23/18 21:00 Chloride IVPB Q12 NELLI Protocol Lactic Acid 1 applic 12/21/18 17:00 12/23/18 10:27 Lac-Hydrin 12% Lotion (225 G) TOP 1 applic BID NELLI Administration Levalbuterol HCl 0.63 mg 12/21/18 20:00 12/23/18 13:06 Xopenex IH 0.63 mg RTID NELLI Administration Metoprolol Succinate 50 mg 12/16/18 21:00 12/23/18 10:30 Toprol Xl PO 50 mg Q12 NELLI Administration Promethazine HCl/Dextromethorphan 5 ml 12/15/18 20:41 12/15/18 22:00 Phenergan Dm Syrup PO 5 ml Q6 PRN Administration Cough and congestion - Patient Studies Lab Studies: Microbiology Studies 12/21/18 17:25 Blood Culture - Preliminary Blood-Venous NO GROWTH AFTER 24 HOURS 12/21/18 17:20 Blood Culture - Preliminary Blood-Venous NO GROWTH AFTER 24 HOURS Lab Studies 12/23/18 12/23/18 12/23/18 Range/Units 15:27 15:22 04:35 WBC (4.8-10.8) K/uL RBC (4.40-5.90) Mil/uL Hgb (12.0-18.0) g/dL Hct (35.0-51.0) % MCV (80.0-94.0) fl MCH (27.0-31.0) pg MCHC (33.0-37.0) g/dL RDW (11.5-14.5) % Plt Count (130-400) K/uL ESR (0-20) mm/hr pCO2 91 H* (35-45) mm/Hg pO2 49 L (80-100) mm/Hg HCO3 26.0 (21-28) mmol/L ABG pH 7.18 L* (7.35-7.45) ABG Total CO2 36.8 H (22-28) mmol/L ABG O2 Saturation 80.2 L (95-98) % ABG O2 Content 16.4 (15-23) ML/dL ABG Base Excess 2.2 (-2.0-3.0) mmol/L ABG Hemoglobin 15.0 (11.7-17.4) g/dL ABG Carboxyhemoglobin 2.0 H (0.5-1.5) % POC ABG HHb (Measured) 19.2 H (0.0-5.0) % ABG Methemoglobin 1.1 (0.0-3.0) % ABG O2 Capacity 20.4 (16-24) mL/dL [place] Test Yes A-a O2 Difference 550.0 mm/Hg Hgb O2 Saturation 77.7 L (95.0-98.0) % FiO2 100.0 % Crit Value Called To yury Olson Crit Value Called By Crit Value Read Back Y Blood Gas Notified Time 1532 Sodium 138 (132-148) mmol/l Potassium 3.6 (3.6-5.0) MMOL/L Chloride 100 (98-107) mmol/L Carbon Dioxide 31 H (22-30) mmol/L Anion Gap 11 (10-20) BUN 34 H (9-20) mg/dl Creatinine 1.1 (0.8-1.5) mg/dl Est GFR ( Amer) > 60 Est GFR (Non-Af Amer) > 60 POC Glucose (mg/dL) 209 H (65-110) mg/dL Random Glucose 109 (75-110) mg/dL Calcium 8.1 L (8.4-10.2) mg/dL Magnesium 1.9 (1.6-2.3) MG/DL Total Bilirubin 1.0 (0.2-1.3) mg/dl Direct Bilirubin 0.6 H (0.0-0.4) mg/ml AST 56 (17-59) U/L ALT 90 H (21-72) U/L Alkaline Phosphatase 146 H (38-126) U/L Total Protein 6.4 (6.3-8.2) G/DL Albumin 3.1 L (3.5-5.0) g/dL Globulin 3.3 (2.2-3.9) gm/dL Albumin/Globulin Ratio 0.9 L (1.0-2.1) Urine Color (YELLOW) Urine Clarity (Clear) Urine pH (5.0-8.0) Ur Specific [place] (1.003-1.030) Urine Protein (NEGATIVE) mg/dL Urine Glucose (UA) (NEGATIVE) mg/dL Urine Ketones (NEGATIVE) mg/dL Urine Blood (NEGATIVE) Urine Nitrate (NEGATIVE) Urine Bilirubin (NEGATIVE) Urine Urobilinogen (0.2-1.0) mg/dL Ur Leukocyte Esterase (Negative) [place]/uL Urine RBC (Auto) (0-3) /hpf Urine Microscopic WBC (0-5) /hpf Hepatitis A IgM Ab (NEGATIVE) Hep Bs Antigen (NEGATIVE) Hep B Core IgM Ab (NEGATIVE) Hepatitis C Antibody (NEGATIVE) Ur L.pneumophila Ag (NEGATIVE) Mycoplasma pneumon IgM (NEGATIVE) 12/23/18 12/22/18 12/22/18 Range/Units 04:35 22:35 17:25 WBC 6.1 (4.8-10.8) K/uL RBC 4.04 L (4.40-5.90) Mil/uL Hgb 13.1 (12.0-18.0) g/dL Hct 39.3 (35.0-51.0) % MCV 97.3 H (80.0-94.0) fl MCH 32.5 H (27.0-31.0) pg MCHC 33.4 (33.0-37.0) g/dL RDW 14.6 H (11.5-14.5) % Plt Count 228 (130-400) K/uL ESR 62 H (0-20) mm/hr pCO2 (35-45) mm/Hg pO2 (80-100) mm/Hg HCO3 (21-28) mmol/L ABG pH (7.35-7.45) ABG Total CO2 (22-28) mmol/L ABG O2 Saturation (95-98) % ABG O2 Content (15-23) ML/dL ABG Base Excess (-2.0-3.0) mmol/L ABG Hemoglobin (11.7-17.4) g/dL ABG Carboxyhemoglobin (0.5-1.5) % POC ABG HHb (Measured) (0.0-5.0) % ABG Methemoglobin (0.0-3.0) % ABG O2 Capacity (16-24) mL/dL [place] Test A-a O2 Difference mm/Hg Hgb O2 Saturation (95.0-98.0) % FiO2 % Crit Value Called To Crit Value Called By Crit Value Read Back Blood Gas Notified Time Sodium (132-148) mmol/l Potassium (3.6-5.0) MMOL/L Chloride (98-107) mmol/L Carbon Dioxide (22-30) mmol/L Anion Gap (10-20) BUN (9-20) mg/dl Creatinine (0.8-1.5) mg/dl Est GFR ( Amer) Est GFR (Non-Af Amer) POC Glucose (mg/dL) (65-110) mg/dL Random Glucose (75-110) mg/dL Calcium (8.4-10.2) mg/dL Magnesium (1.6-2.3) MG/DL Total Bilirubin (0.2-1.3) mg/dl Direct Bilirubin (0.0-0.4) mg/ml AST (17-59) U/L ALT (21-72) U/L Alkaline Phosphatase (38-126) U/L Total Protein (6.3-8.2) G/DL Albumin (3.5-5.0) g/dL Globulin (2.2-3.9) gm/dL Albumin/Globulin Ratio (1.0-2.1) Urine Color Yellow (YELLOW) Urine Clarity Clear (Clear) Urine pH 6.0 (5.0-8.0) Ur Specific [place] 1.010 (1.003-1.030) Urine Protein Negative (NEGATIVE) mg/dL Urine Glucose (UA) Neg (NEGATIVE) mg/dL Urine Ketones Negative (NEGATIVE) mg/dL Urine Blood Negative (NEGATIVE) Urine Nitrate Negative (NEGATIVE) Urine Bilirubin Negative (NEGATIVE) Urine Urobilinogen 0.2-1.0 (0.2-1.0) mg/dL Ur Leukocyte Esterase Neg (Negative) [place]/uL Urine RBC (Auto) 2 (0-3) /hpf Urine Microscopic WBC 1 (0-5) /hpf Hepatitis A IgM Ab (NEGATIVE) Hep Bs Antigen (NEGATIVE) Hep B Core IgM Ab (NEGATIVE) Hepatitis C Antibody (NEGATIVE) Ur L.pneumophila Ag Negative (NEGATIVE) Mycoplasma pneumon IgM (NEGATIVE) 12/22/18 12/22/18 Range/Units 16:49 16:49 WBC (4.8-10.8) K/uL RBC (4.40-5.90) Mil/uL Hgb (12.0-18.0) g/dL Hct (35.0-51.0) % MCV (80.0-94.0) fl MCH (27.0-31.0) pg MCHC (33.0-37.0) g/dL RDW (11.5-14.5) % Plt Count (130-400) K/uL ESR (0-20) mm/hr pCO2 (35-45) mm/Hg pO2 (80-100) mm/Hg HCO3 (21-28) mmol/L ABG pH (7.35-7.45) ABG Total CO2 (22-28) mmol/L ABG O2 Saturation (95-98) % ABG O2 Content (15-23) ML/dL ABG Base Excess (-2.0-3.0) mmol/L ABG Hemoglobin (11.7-17.4) g/dL ABG Carboxyhemoglobin (0.5-1.5) % POC ABG HHb (Measured) (0.0-5.0) % ABG Methemoglobin (0.0-3.0) % ABG O2 Capacity (16-24) mL/dL [place] Test A-a O2 Difference mm/Hg Hgb O2 Saturation (95.0-98.0) % FiO2 % Crit Value Called To Crit Value Called By Crit Value Read Back Blood Gas Notified Time Sodium (132-148) mmol/l Potassium (3.6-5.0) MMOL/L Chloride (98-107) mmol/L Carbon Dioxide (22-30) mmol/L Anion Gap (10-20) BUN (9-20) mg/dl Creatinine (0.8-1.5) mg/dl Est GFR ( Amer) Est GFR (Non-Af Amer) POC Glucose (mg/dL) (65-110) mg/dL Random Glucose (75-110) mg/dL Calcium (8.4-10.2) mg/dL Magnesium (1.6-2.3) MG/DL Total Bilirubin (0.2-1.3) mg/dl Direct Bilirubin (0.0-0.4) mg/ml AST (17-59) U/L ALT (21-72) U/L Alkaline Phosphatase (38-126) U/L Total Protein (6.3-8.2) G/DL Albumin (3.5-5.0) g/dL Globulin (2.2-3.9) gm/dL Albumin/Globulin Ratio (1.0-2.1) Urine Color (YELLOW) Urine Clarity (Clear) Urine pH (5.0-8.0) Ur Specific [place] (1.003-1.030) Urine Protein (NEGATIVE) mg/dL Urine Glucose (UA) (NEGATIVE) mg/dL Urine Ketones (NEGATIVE) mg/dL Urine Blood (NEGATIVE) Urine Nitrate (NEGATIVE) Urine Bilirubin (NEGATIVE) Urine Urobilinogen (0.2-1.0) mg/dL Ur Leukocyte Esterase (Negative) [place]/uL Urine RBC (Auto) (0-3) /hpf Urine Microscopic WBC (0-5) /hpf Hepatitis A IgM Ab Negative (NEGATIVE) Hep Bs Antigen Negative (NEGATIVE) Hep B Core IgM Ab Negative (NEGATIVE) Hepatitis C Antibody Negative (NEGATIVE) Ur L.pneumophila Ag (NEGATIVE) Mycoplasma pneumon IgM Negative (NEGATIVE) Laboratory Results - last 24 hr 12/22/18 12/22/18 12/22/18 16:49 16:49 17:25 WBC RBC Hgb Hct MCV MCH MCHC RDW Plt Count ESR pCO2 pO2 HCO3 ABG pH ABG Total CO2 ABG O2 Saturation ABG O2 Content ABG Base Excess ABG Hemoglobin ABG Carboxyhemoglobin POC ABG HHb (Measured) ABG Methemoglobin ABG O2 Capacity [place] Test A-a O2 Difference Hgb O2 Saturation FiO2 Crit Value Called To Crit Value Called By Crit Value Read Back Blood Gas Notified Time Sodium Potassium Chloride Carbon Dioxide Anion Gap BUN Creatinine Est GFR ( Amer) Est GFR (Non-Af Amer) POC Glucose (mg/dL) Random Glucose Calcium Magnesium Total Bilirubin Direct Bilirubin AST ALT Alkaline Phosphatase Total Protein Albumin Globulin Albumin/Globulin Ratio Urine Color Urine Clarity Urine pH Ur Specific [place] Urine Protein Urine Glucose (UA) Urine Ketones Urine Blood Urine Nitrate Urine Bilirubin Urine Urobilinogen Ur Leukocyte Esterase Urine RBC (Auto) Urine Microscopic WBC Hepatitis A IgM Ab Negative Hep Bs Antigen Negative Hep B Core IgM Ab Negative Hepatitis C Antibody Negative Ur L.pneumophila Ag Negative Mycoplasma pneumon IgM Negative 12/22/18 12/23/18 12/23/18 22:35 04:35 04:35 WBC 6.1 RBC 4.04 L Hgb 13.1 Hct 39.3 MCV 97.3 H MCH 32.5 H MCHC 33.4 RDW 14.6 H Plt Count 228 ESR 62 H pCO2 pO2 HCO3 ABG pH ABG Total CO2 ABG O2 Saturation ABG O2 Content ABG Base Excess ABG Hemoglobin ABG Carboxyhemoglobin POC ABG HHb (Measured) ABG Methemoglobin ABG O2 Capacity [place] Test A-a O2 Difference Hgb O2 Saturation FiO2 Crit Value Called To Crit Value Called By Crit Value Read Back Blood Gas Notified Time Sodium 138 Potassium 3.6 Chloride 100 Carbon Dioxide 31 H Anion Gap 11 BUN 34 H Creatinine 1.1 Est GFR ( Amer) > 60 Est GFR (Non-Af Amer) > 60 POC Glucose (mg/dL) Random Glucose 109 Calcium 8.1 L Magnesium 1.9 Total Bilirubin 1.0 Direct Bilirubin 0.6 H AST 56 ALT 90 H Alkaline Phosphatase 146 H Total Protein 6.4 Albumin 3.1 L Globulin 3.3 Albumin/Globulin Ratio 0.9 L Urine Color Yellow Urine Clarity Clear Urine pH 6.0 Ur Specific [place] 1.010 Urine Protein Negative Urine Glucose (UA) Neg Urine Ketones Negative Urine Blood Negative Urine Nitrate Negative Urine Bilirubin Negative Urine Urobilinogen 0.2-1.0 Ur Leukocyte Esterase Neg Urine RBC (Auto) 2 Urine Microscopic WBC 1 Hepatitis A IgM Ab Hep Bs Antigen Hep B Core IgM Ab Hepatitis C Antibody Ur L.pneumophila Ag Mycoplasma pneumon IgM 12/23/18 12/23/18 15:22 15:27 WBC RBC Hgb Hct MCV MCH MCHC RDW Plt Count ESR pCO2 91 H* pO2 49 L HCO3 26.0 ABG pH 7.18 L* ABG Total CO2 36.8 H ABG O2 Saturation 80.2 L ABG O2 Content 16.4 ABG Base Excess 2.2 ABG Hemoglobin 15.0 ABG Carboxyhemoglobin 2.0 H POC ABG HHb (Measured) 19.2 H ABG Methemoglobin 1.1 ABG O2 Capacity 20.4 [place] Test Yes A-a O2 Difference 550.0 Hgb O2 Saturation 77.7 L FiO2 100.0 Crit Value Called To yury Olson Crit Value Called By 22 Crit Value Read Back Y Blood Gas Notified Time 1532 Sodium Potassium Chloride Carbon Dioxide Anion Gap BUN Creatinine Est GFR ( Amer) Est GFR (Non-Af Amer) POC Glucose (mg/dL) 209 H Random Glucose Calcium Magnesium Total Bilirubin Direct Bilirubin AST ALT Alkaline Phosphatase Total Protein Albumin Globulin Albumin/Globulin Ratio Urine Color Urine Clarity Urine pH Ur Specific [place] Urine Protein Urine Glucose (UA) Urine Ketones Urine Blood Urine Nitrate Urine Bilirubin Urine Urobilinogen Ur Leukocyte Esterase Urine RBC (Auto) Urine Microscopic WBC Hepatitis A IgM Ab Hep Bs Antigen Hep B Core IgM Ab Hepatitis C Antibody Ur L.pneumophila Ag Mycoplasma pneumon IgM Radiology Impressions: Radiology Impressions Chest X-Ray 12/23/18 15:52 IMPRESSION: Improving diffuse right-sided pulmonary opacity. New mild left perihilar opacity. Mild decrease in size of small bilateral pleural effusions. Nasogastric tube tip just beneath the diaphragm and should be advanced or replaced. Endotracheal tube tip at the level of the thoracic inlet. Consider advancement of its position. Fingerstick Blood Sugar Results: 122 Review of Systems - Review of Systems Review of Systems: Unable to obtain due patient's mental status Critical Care Progress Note - Nutrition Nutrition: Nutrition Category Date Time Status Heart Healthy Diet [DIET] Diets 12/15/18 Lunch Active Assessment/Plan - Assessment and Plan (Free Text) Assessment: 69 year old Male with PMHx HTN, baseline dementia initially presented to ED on 12/15/18 for shortness of breath and inability to sleep. Patient was found to have Afib with RVR in ED and was admitted for further management of atrial fibrillation. Over the course of patients stay, patient was reported to be more lethargic. Today, HOG TENDER was called for increased lethargy and patient was found to be obtunded with pulse ox of 77. Patient is admitted to ICU for management of acute hypoxemic hypercapneic respiratory failure. Plan: Acute hypoxemic hypercapneic respiratory failure -r/o HAP -s/p intubation with current vent setting of AC TV 500, RR 12, PEEP 5, FiO2 of 90% -c/w Meropenem 1 gm IVPB Q8 -c/w Metronidazole IVPB Q12 -start Vancomycin 1 mg IVPB Q12 -ID Dr. Quinn on board -Pulmonary toilet -I/Os -c/w duoneb qid, mucomyst 2 ml BID -f/u serial ABG, AM labs, sputum cx and blood cx Atrial fibrillation with RVR -[employer] Dr. Banda on board -c/w Cardizem 360 mg OGT daily and Toprol XL 50 mg OGT Q12 -C/W Lovenox 110 mg sc q12 Mild diffuse encephalopathy on EEG -Likely metabolic secondary to C02 retention. -Neuro on board Diet: OGT feeds: Jevity 1.2, start at 30 cc/hr with goal of 60 cc/hr GI prophylaxis Famotidine 20 mg ivp q12 DVT prophylaxis -On Lovenox 110 mg sc q12 Patient seen, evaluated and plan discussed with Dr. Yury Bennett, pgy-2 <Main Roldan - Last Filed: 12/23/18 18:31> Assessment/Plan - Assessment and Plan (Free Text) Plan: 73M admitted 8 days ago for rapid A fib and SOB. PMH known + A fib, HTN, Hyperlipidemia. Initial w/u noted for need for vasoactive Cardizem drip to control A Fib VR, and etiology of lethargy and AMS. Found to have possible metabolic encephalopathy with CT Head and EEG negative for acute pathology or occult seizure disorder. HOG TENDER called today for unresponsiveness assoc with hypoxemia and desaturation, and complaints of I cant breathe urgently transferred to ICU for MV support given ABG revealing hypoxia and acute hypercarbia. A Fib rate noted to be up to 180s, not assoc with hypotension. Subsequently orally intubated and placed on MV with progressive awakening and agitation, trying to self extubated. Propofol bolus given, HR of 180a decreased to 120s. OGT, Cifuentes catheter, TLC and arterial line placed. Repeat ABG pending. Post intubation CXR shows ETT high above george, and subsequently repositioned 3 4 cm lower. Discussed with ID; Meropenam started today and advised to add Vancomycin. Blood and Sputum cultures obtained, CT Chest findings noted. Time spent with this patient did not overlap with any other provider's medical or critical care time. Additionally the code selected for the services rendered in this note includes the time spent: talking to the patients family, associated physicians and reviewing hospital data/results not listed here which extended to a total of 50 minutes of critical care. Attestation: Patient seen and examined at the bedside with Resident Dr. Leon Bennett; and I agree with his outline of plans and management documented above as discussed on AM rounds reflecting my review of all applicable clinical data, and participation in the care of the patient throughout the day in ICU; today, December 23, 2018.
[2018-12-23] MEDS: Dexmedetomidine Hydrochloride 400 MCG in Sodium Chloride 0.9% 96 ML IV ONE (17:14)
[2018-12-23 17:23] LABS: ABG ALLEN TEST YES; ARTERIAL BLOOD GAS HCO3 29.2 mmol/L (21-28); ARTERIAL BLOOD GAS O2 SAT 98.6 % (95-98); ARTERIAL BLOOD GAS PCO2 56 mm/Hg (35-45); ARTERIAL BLOOD GAS PH 7.37 (7.35-7.45); ARTERIAL BLOOD GAS PO2 88 mm/Hg (80-100); ARTERIAL BLOOD GAS TCO2 34.1 mmol/L (22-28)
[2018-12-23] MEDS: Meropenem 1 GM in Sodium Chloride 0.9% 100 ML IVPB SCH (17:33)
[2018-12-23 17:36] LABS: HEMOGLOBIN 12.7 g/dL (12.0-18.0); MEAN CELL VOLUME 97.5 fl (80.0-94.0); MEAN CORPUSCULAR HGB CONC 32.8 g/dL (33.0-37.0); RBC 3.95 Mil/uL (4.40-5.90); WHITE BLOOD COUNT 9.3 K/uL (4.8-10.8)
[2018-12-23] MEDS ORDERED: Sodium Chloride 0.9% 500 ML IV ONE (18:23)
[2018-12-23 18:27] LABS: BLOOD UREA NITROGEN 35 mg/dl (9-20); CALCIUM 8.6 mg/dL (8.4-10.2); GFR NON-AFRICAN AMERICAN 59
[2018-12-23] MEDS: Albuterol-Ipratrop 3 mg / 0.5 (3 ml) UD INH SCH (19:08)
[2018-12-23] MEDS ORDERED: Acetylcysteine 10% 4 ML IH SCH (20:00)
[2018-12-24] MEDS: Meropenem 1 GM in Sodium Chloride 0.9% 100 ML IVPB SCH ×3 (01:08→17:10)
[2018-12-24 05:31] LABS: ABG ALLEN TEST YES; ARTERIAL BLOOD GAS HCO3 29.7 mmol/L (21-28); ARTERIAL BLOOD GAS O2 SAT 100.3 % (95-98); ARTERIAL BLOOD GAS PCO2 38 mm/Hg (35-45); ARTERIAL BLOOD GAS PO2 194 mm/Hg (80-100); ARTERIAL BLOOD GAS TCO2 30.8 mmol/L (22-28)
[2018-12-24 07:09] LABS: BASO % 0.3 % (0.0-2.0); HEMOGLOBIN 11.9 g/dL (12.0-18.0); LYMPH # 0.5 K/uL (1.0-4.3); LYMPH % 5.9 % (20.0-40.0); MEAN CELL VOLUME 98.7 fl (80.0-94.0); MEAN CORPUSCULAR HEMOGLOBIN 32.5 pg (27.0-31.0); MEAN CORPUSCULAR HGB CONC 32.9 g/dL (33.0-37.0); MEAN PLATELET VOLUME 8.1 fl (7.2-11.7); MONO # 0.6 K/uL (0.0-0.8); MONO % 7.9 % (0.0-10.0); NEUT # 6.9 K/uL (1.8-7.0); NEUT % 85.9 % (50.0-75.0); NRBC % 0.1 % (0.0-0.0); PLATELET COUNT 221 K/uL (130-400); RBC 3.67 Mil/uL (4.40-5.90); RED CELL DISTRIBUTION WIDTH 14.9 % (11.5-14.5); WHITE BLOOD COUNT 8.1 K/uL (4.8-10.8)
[2018-12-24 07:28] LABS: ALB/GLOB RATIO 0.9 (1.0-2.1); ALBUMIN 2.7 g/dL (3.5-5.0); ALT/SGPT 80 U/L (21-72); AST/SGOT 46 U/L (17-59); BLOOD UREA NITROGEN 38 mg/dl (9-20); CALCIUM 8.4 mg/dL (8.4-10.2); GFR NON-AFRICAN AMERICAN 59
--- NOTE | 2018-12-24 07:55 | RAD ---
Date of service: 12/24/2018 HISTORY: intubated COMPARISON: Portable chest 12/23/2018 3:52 p.m.. TECHNIQUE: 1 view obtained. FINDINGS: LUNGS: Endotracheal and orogastric tubes are stable in position. Persistent bilateral pleural effusions remain slightly greater the right than left sides though both are mild. Diffuse infiltrates in the right chest once again and are not significantly changed at the left perihilar region. No pneumothorax bilaterally. PLEURA: As above. CARDIOVASCULAR: Calcific atherosclerotic changes are seen related to the thoracic aorta. Normal cardiac size. No pulmonary vascular congestion. OSSEOUS STRUCTURES: No significant abnormalities. VISUALIZED UPPER ABDOMEN: Normal. OTHER FINDINGS: None. IMPRESSION: No interval change in mild bilateral pleural effusions and prominent right but [id number] left side infiltrates.
[2018-12-24] MEDS: Levalbuterol 0.63 MG/3 ML Inhal Soln UD IH SCH ×2 (08:25→14:27)
[2018-12-24] MEDS: Acetylcysteine 10% 4 ML IH SCH ×2 (08:25→19:12)
[2018-12-24] MEDS: Enoxaparin 120 mg Syringe SC SCH ×2 (08:31→21:15)
[2018-12-24] MEDS: metroNIDAZOLE 500mg/100ml NS 100 ML IVPB SCH ×2 (08:33→23:00)
[2018-12-24 08:52] LABS: LYMPHOCYTE 1 % (20-50); MONOCYTE 4 % (0-10); NEUTROPHIL 95 % (42-75); PLATELET ESTIMATE NORMAL (NORMAL); TOTAL CELLS COUNTED 100
[2018-12-24 08:53] LABS: ANISOCYTOSIS SLIGHT; OVALOCYTES SLIGHT; POIKILOCYTOSIS SLIGHT
--- NOTE | 2018-12-24 10:05 | CP.CCUPN ---
<[facility] - Last Filed: 12/24/18 09:51> CCU Subjective - Physician Review Subjective (Free Text): 12/24/18 09:51 69 year old Male with PMHx uncontrolled HTN, atrial fibrillation, PTSD, baseline dementia initially presented to ED on 12/15/18 for shortness of breath and inability to sleep x 3 days. Patient was found to have Afib with RVR in ED and was admitted for further management of atrial fibrillation. Over the course of patients stay, patient was reported to be more lethargic. Patient was found to have possible metabolic encephalopathy with CT Head and EEG negative for acute pathology or occult seizure disorder. Patient was found to have right sided infiltrate on CXR on 12/21/[address] on 12/22/18 shows multifocal pneumonia. Patient was transferred and admitted to ICU on 12/23/18 for acute hypoxemic hypercapneic respiratory failure s/p intubated yesterday. Patient seen and evaluated this morning. Overnight events and nursing notes reviewed. On ventilation with vent setting of TV 500, RR 12, PEEP 5, FiO2 60% Afebrile with slight tachycardia and normal BP Cifuentes draining urine output Patient is awake and opens eyes to name calling. CCU Objective - Vital Signs / Intake & Output Vital Signs (Last 4 hours): Vital Signs Pulse Resp BP Pulse Ox 12/24/18 09:00 100 H 12 116/70 100 12/24/18 08:32 100/63 12/24/18 08:00 114 H 13 102/60 100 12/24/18 06:00 90 12 93/62 L 99 Intake and Output (Last 8hrs): Intake & Output 12/23/18 12/24/18 12/24/18 22:59 06:59 14:59 Intake Total 190 705 Output Total 150 50 Balance 40 705 -50 Intake: IV 20 55 Intake, Piggyback 170 250 Free Water Flush 400 Output: Urine 150 50 Urethral (Cifuentes) 150 50 Other: # Bowel Movements 0 - Physical Exam Head: Positive for: Atraumatic, Normocephalic Pupils: Positive for: PERRL Mouth: Positive for: Other (s/p intubated) Respiratory/Chest: Positive for: Respiratory Distress. Negative for: Accessory Muscle Use, Wheezes Cardiovascular: Positive for: Normal S1, S2, Irregular Rhythm, Tachycardic Abdomen: Positive for: Distention, Normal Bowel Sounds. Negative for: Tenderness, Peritoneal Signs Upper Extremity: Positive for: Normal Inspection Lower Extremity: Positive for: Edema Skin: Positive for: Rashes (tiny multiple dark spots in the body) Psychiatric: Positive for: Alert. Negative for: Oriented x 3 - Medications Active Medications: Active Medications Generic Name Dose Route Start Last Admin Trade Name Freq PRN Reason Stop Dose Admin Acetaminophen 650 mg 12/16/18 07:14 12/18/18 16:45 Tylenol 325mg Tab PO 650 mg Q6 PRN Administration Pain, Mild (1-3) Acetylcysteine 2 ml 12/23/18 15:13 12/24/18 08:25 Mucomyst 10% 4ml IH 2 ml RBID NELLI Administration Albuterol/Ipratropium 3 ml 12/23/18 20:00 12/23/18 19:08 Duoneb 3 Mg/0.5 Mg (3 Ml) Ud INH Not Given RQID NELLI Alprazolam 0.5 mg 12/20/18 10:30 12/23/18 10:34 Xanax PO 12/27/18 10:31 0.5 mg Q12 NELLI Administration Docusate Sodium 100 mg 12/18/18 09:00 12/23/18 10:29 Colace PO 100 mg DAILY NELLI Administration Enoxaparin Sodium 110 mg 12/20/18 09:00 12/24/18 08:31 Lovenox SC 110 mg Q12 NELLI Administration Protocol Famotidine 20 mg 12/23/18 21:00 12/24/18 08:35 Pepcid IVP 20 mg Q12 NELLI Administration Furosemide 40 mg 12/23/18 20:30 12/24/18 08:32 Lasix IVP 40 mg BID NELLI Administration Metronidazole 100 mls @ 100 mls/hr 12/22/18 21:00 12/24/18 08:33 Flagyl 500mg/100ml Ns IVPB 100 mls/hr Q12 NELLI Administration Protocol Meropenem 1 gm/ Sodium 100 mls @ 100 mls/hr 12/23/18 17:00 12/24/18 08:28 Chloride IVPB 100 mls/hr Q8 NELLI Administration Protocol Dexmedetomidine HCl 400 mcg/ 100 mls @ 5.1 mls/hr 12/23/18 15:59 12/23/18 22:15 Sodium Chloride IV 12/24/18 11:35 0.1 mcg/kg/hr .[id number] ONE 2.55 mls/hr Titration Protocol 0.2 MCG/KG/HR Vancomycin HCl 1 gm/ Sodium 250 mls @ 166.667 mls/hr 12/23/18 21:00 12/24/18 08:30 Chloride IVPB 166.667 mls/hr Q12 NELLI Administration Protocol Lactic Acid 1 applic 12/21/18 17:00 12/24/18 08:32 Lac-Hydrin 12% Lotion (225 G) TOP 1 applic BID NELLI Administration Levalbuterol HCl 0.63 mg 12/21/18 20:00 12/24/18 08:25 Xopenex IH 0.63 mg RTID NELLI Administration Promethazine HCl/Dextromethorphan 5 ml 12/15/18 20:41 12/15/18 22:00 Phenergan Dm Syrup PO 5 ml Q6 PRN Administration Cough and congestion - Patient Studies Lab Studies: Microbiology Studies 12/23/18 17:10 Gram Stain - Final Trachasp 12/21/18 17:20 Blood Culture - Preliminary Blood-Venous NO GROWTH AFTER 48 HOURS 12/21/18 17:25 Blood Culture - Preliminary Blood-Venous NO GROWTH AFTER 48 HOURS 12/22/18 16:49 Blood Culture - Preliminary Blood-Venous NO GROWTH AFTER 24 HOURS Lab Studies 12/24/18 12/24/18 12/24/18 Range/Units 07:00 07:00 05:11 WBC 8.1 (4.8-10.8) K/uL RBC 3.67 L (4.40-5.90) Mil/uL Hgb 11.9 L (12.0-18.0) g/dL Hct 36.3 (35.0-51.0) % MCV 98.7 H (80.0-94.0) fl MCH 32.5 H (27.0-31.0) pg MCHC 32.9 L (33.0-37.0) g/dL RDW 14.9 H (11.5-14.5) % Plt Count 221 (130-400) K/uL MPV 8.1 (7.2-11.7) fl Neut % (Auto) 85.9 H (50.0-75.0) % Lymph % (Auto) 5.9 L (20.0-40.0) % Mclennan % (Auto) 7.9 (0.0-10.0) % Eos % (Auto) 0.0 (0.0-4.0) % Baso % (Auto) 0.3 (0.0-2.0) % Neut # (Auto) 6.9 (1.8-7.0) K/uL Lymph # (Auto) 0.5 L (1.0-4.3) K/uL Mclennan # (Auto) 0.6 (0.0-0.8) K/uL Eos # (Auto) 0.0 (0.0-0.7) K/uL Baso # (Auto) 0.0 (0.0-0.2) K/uL Neutrophils % (Manual) 95 H (42-75) % Lymphocytes % (Manual) 1 L (20-50) % Monocytes % (Manual) 4 (0-10) % Platelet Estimate Normal (NORMAL) Poikilocytosis (manual Slight Anisocytosis (manual) Slight Ovalocytes Slight pCO2 38 (35-45) mm/Hg pO2 194 H (80-100) mm/Hg HCO3 29.7 H (21-28) mmol/L ABG pH 7.50 H (7.35-7.45) ABG Total CO2 30.8 H (22-28) mmol/L ABG O2 Saturation 100.3 H (95-98) % ABG O2 Content (15-23) ML/dL ABG Base Excess 6.1 H (-2.0-3.0) mmol/L ABG Hemoglobin (11.7-17.4) g/dL ABG Carboxyhemoglobin (0.5-1.5) % POC ABG HHb (Measured) (0.0-5.0) % ABG Methemoglobin (0.0-3.0) % ABG O2 Capacity (16-24) mL/dL [place] Test Yes ABG Potassium 3.9 (3.6-5.2) mmol/L A-a O2 Difference 400.0 mm/Hg Hgb O2 Saturation (95.0-98.0) % Glucose 131 H (75-110) mg/dL Lactate 1.2 (0.7-2.1) mmol/L Vent Mode A/c Mechanical Rate 12 FiO2 90.0 % Tidal Volume 500 PEEP 5 Crit Value Called To Crit Value Called By Crit Value Read Back Blood Gas Notified Time Sodium 139 137.0 (132-148) mmol/l Potassium 3.9 (3.6-5.0) MMOL/L Chloride 103 108.0 H (98-107) mmol/L Carbon Dioxide 31 H (22-30) mmol/L Anion Gap 9 L (10-20) BUN 38 H (9-20) mg/dl Creatinine 1.2 (0.8-1.5) mg/dl Est GFR ( Amer) > 60 Est GFR (Non-Af Amer) 59 POC Glucose (mg/dL) (65-110) mg/dL Random Glucose 121 H (75-110) mg/dL Lactic Acid (0.7-2.1) mmol/L Calcium 8.4 (8.4-10.2) mg/dL Phosphorus 4.7 H (2.5-4.5) mg/dl Magnesium 2.0 (1.6-2.3) MG/DL Total Bilirubin 0.9 (0.2-1.3) mg/dl AST 46 (17-59) U/L ALT 80 H (21-72) U/L Alkaline Phosphatase 127 H (38-126) U/L Troponin I (0.00-0.120) ng/mL Total Protein 5.7 L (6.3-8.2) G/DL Albumin 2.7 L (3.5-5.0) g/dL Globulin 2.9 (2.2-3.9) gm/dL Albumin/Globulin Ratio 0.9 L (1.0-2.1) Arterial Blood Potassium 3.9 (3.6-5.2) mmol/L Mycoplasma pneumon IgM (NEGATIVE) 12/23/18 12/23/18 12/23/18 Range/Units 20:45 17:20 17:10 WBC (4.8-10.8) K/uL RBC (4.40-5.90) Mil/uL Hgb (12.0-18.0) g/dL Hct (35.0-51.0) % MCV (80.0-94.0) fl MCH (27.0-31.0) pg MCHC (33.0-37.0) g/dL RDW (11.5-14.5) % Plt Count (130-400) K/uL MPV (7.2-11.7) fl Neut % (Auto) (50.0-75.0) % Lymph % (Auto) (20.0-40.0) % Mclennan % (Auto) (0.0-10.0) % Eos % (Auto) (0.0-4.0) % Baso % (Auto) (0.0-2.0) % Neut # (Auto) (1.8-7.0) K/uL Lymph # (Auto) (1.0-4.3) K/uL Mclennan # (Auto) (0.0-0.8) K/uL Eos # (Auto) (0.0-0.7) K/uL Baso # (Auto) (0.0-0.2) K/uL Neutrophils % (Manual) (42-75) % Lymphocytes % (Manual) (20-50) % Monocytes % (Manual) (0-10) % Platelet Estimate (NORMAL) Poikilocytosis (manual Anisocytosis (manual) Ovalocytes pCO2 56 H (35-45) mm/Hg pO2 88 (80-100) mm/Hg HCO3 29.2 H (21-28) mmol/L ABG pH 7.37 (7.35-7.45) ABG Total CO2 34.1 H (22-28) mmol/L ABG O2 Saturation 98.6 H (95-98) % ABG O2 Content (15-23) ML/dL ABG Base Excess 5.5 H (-2.0-3.0) mmol/L ABG Hemoglobin (11.7-17.4) g/dL ABG Carboxyhemoglobin (0.5-1.5) % POC ABG HHb (Measured) (0.0-5.0) % ABG Methemoglobin (0.0-3.0) % ABG O2 Capacity (16-24) mL/dL [place] Test Yes ABG Potassium 3.6 (3.6-5.2) mmol/L A-a O2 Difference 555.0 mm/Hg Hgb O2 Saturation (95.0-98.0) % Glucose 169 H (75-110) mg/dL Lactate 1.0 (0.7-2.1) mmol/L Vent Mode A/c Mechanical Rate 12 FiO2 100.0 % Tidal Volume 500 PEEP Crit Value Called To Crit Value Called By Crit Value Read Back Blood Gas Notified Time Sodium 140.0 (132-148) mmol/l Potassium (3.6-5.0) MMOL/L Chloride 103.0 (98-107) mmol/L Carbon Dioxide (22-30) mmol/L Anion Gap (10-20) BUN (9-20) mg/dl Creatinine (0.8-1.5) mg/dl Est GFR ( Amer) Est GFR (Non-Af Amer) POC Glucose (mg/dL) (65-110) mg/dL Random Glucose (75-110) mg/dL Lactic Acid 1.4 (0.7-2.1) mmol/L Calcium (8.4-10.2) mg/dL Phosphorus (2.5-4.5) mg/dl Magnesium (1.6-2.3) MG/DL Total Bilirubin (0.2-1.3) mg/dl AST (17-59) U/L ALT (21-72) U/L Alkaline Phosphatase (38-126) U/L Troponin I 0.0300 (0.00-0.120) ng/mL Total Protein (6.3-8.2) G/DL Albumin (3.5-5.0) g/dL Globulin (2.2-3.9) gm/dL Albumin/Globulin Ratio (1.0-2.1) Arterial Blood Potassium 3.6 (3.6-5.2) mmol/L Mycoplasma pneumon IgM (NEGATIVE) 12/23/18 12/23/18 12/23/18 Range/Units 17:10 17:10 15:27 WBC 9.3 D (4.8-10.8) K/uL RBC 3.95 L (4.40-5.90) Mil/uL Hgb 12.7 (12.0-18.0) g/dL Hct 38.6 (35.0-51.0) % MCV 97.5 H (80.0-94.0) fl MCH 32.0 H (27.0-31.0) pg MCHC 32.8 L (33.0-37.0) g/dL RDW 15.0 H (11.5-14.5) % Plt Count 251 (130-400) K/uL MPV (7.2-11.7) fl Neut % (Auto) (50.0-75.0) % Lymph % (Auto) (20.0-40.0) % Mclennan % (Auto) (0.0-10.0) % Eos % (Auto) (0.0-4.0) % Baso % (Auto) (0.0-2.0) % Neut # (Auto) (1.8-7.0) K/uL Lymph # (Auto) (1.0-4.3) K/uL Mclennan # (Auto) (0.0-0.8) K/uL Eos # (Auto) (0.0-0.7) K/uL Baso # (Auto) (0.0-0.2) K/uL Neutrophils % (Manual) (42-75) % Lymphocytes % (Manual) (20-50) % Monocytes % (Manual) (0-10) % Platelet Estimate (NORMAL) Poikilocytosis (manual Anisocytosis (manual) Ovalocytes pCO2 91 H* (35-45) mm/Hg pO2 49 L (80-100) mm/Hg HCO3 26.0 (21-28) mmol/L ABG pH 7.18 L* (7.35-7.45) ABG Total CO2 36.8 H (22-28) mmol/L ABG O2 Saturation 80.2 L (95-98) % ABG O2 Content 16.4 (15-23) ML/dL ABG Base Excess 2.2 (-2.0-3.0) mmol/L ABG Hemoglobin 15.0 (11.7-17.4) g/dL ABG Carboxyhemoglobin 2.0 H (0.5-1.5) % POC ABG HHb (Measured) 19.2 H (0.0-5.0) % ABG Methemoglobin 1.1 (0.0-3.0) % ABG O2 Capacity 20.4 (16-24) mL/dL [place] Test Yes ABG Potassium (3.6-5.2) mmol/L A-a O2 Difference 550.0 mm/Hg Hgb O2 Saturation 77.7 L (95.0-98.0) % Glucose (75-110) mg/dL Lactate (0.7-2.1) mmol/L Vent Mode Mechanical Rate FiO2 100.0 % Tidal Volume PEEP Crit Value Called To yury Olson Crit Value Called By 22 Crit Value Read Back Y Blood Gas Notified Time 1532 Sodium 139 (132-148) mmol/l Potassium 3.9 (3.6-5.0) MMOL/L Chloride 101 (98-107) mmol/L Carbon Dioxide 32 H (22-30) mmol/L Anion Gap 10 (10-20) BUN 35 H (9-20) mg/dl Creatinine 1.2 (0.8-1.5) mg/dl Est GFR ( Amer) > 60 Est GFR (Non-Af Amer) 59 POC Glucose (mg/dL) (65-110) mg/dL Random Glucose 179 H (75-110) mg/dL Lactic Acid (0.7-2.1) mmol/L Calcium 8.6 (8.4-10.2) mg/dL Phosphorus (2.5-4.5) mg/dl Magnesium (1.6-2.3) MG/DL Total Bilirubin (0.2-1.3) mg/dl AST (17-59) U/L ALT (21-72) U/L Alkaline Phosphatase (38-126) U/L Troponin I (0.00-0.120) ng/mL Total Protein (6.3-8.2) G/DL Albumin (3.5-5.0) g/dL Globulin (2.2-3.9) gm/dL Albumin/Globulin Ratio (1.0-2.1) Arterial Blood Potassium (3.6-5.2) mmol/L Mycoplasma pneumon IgM (NEGATIVE) 12/23/18 12/22/18 Range/Units 15:22 16:49 WBC (4.8-10.8) K/uL RBC (4.40-5.90) Mil/uL Hgb (12.0-18.0) g/dL Hct (35.0-51.0) % MCV (80.0-94.0) fl MCH (27.0-31.0) pg MCHC (33.0-37.0) g/dL RDW (11.5-14.5) % Plt Count (130-400) K/uL MPV (7.2-11.7) fl Neut % (Auto) (50.0-75.0) % Lymph % (Auto) (20.0-40.0) % Mclennan % (Auto) (0.0-10.0) % Eos % (Auto) (0.0-4.0) % Baso % (Auto) (0.0-2.0) % Neut # (Auto) (1.8-7.0) K/uL Lymph # (Auto) (1.0-4.3) K/uL Mclennan # (Auto) (0.0-0.8) K/uL Eos # (Auto) (0.0-0.7) K/uL Baso # (Auto) (0.0-0.2) K/uL Neutrophils % (Manual) (42-75) % Lymphocytes % (Manual) (20-50) % Monocytes % (Manual) (0-10) % Platelet Estimate (NORMAL) Poikilocytosis (manual Anisocytosis (manual) Ovalocytes pCO2 (35-45) mm/Hg pO2 (80-100) mm/Hg HCO3 (21-28) mmol/L ABG pH (7.35-7.45) ABG Total CO2 (22-28) mmol/L ABG O2 Saturation (95-98) % ABG O2 Content (15-23) ML/dL ABG Base Excess (-2.0-3.0) mmol/L ABG Hemoglobin (11.7-17.4) g/dL ABG Carboxyhemoglobin (0.5-1.5) % POC ABG HHb (Measured) (0.0-5.0) % ABG Methemoglobin (0.0-3.0) % ABG O2 Capacity (16-24) mL/dL [place] Test ABG Potassium (3.6-5.2) mmol/L A-a O2 Difference mm/Hg Hgb O2 Saturation (95.0-98.0) % Glucose (75-110) mg/dL Lactate (0.7-2.1) mmol/L Vent Mode Mechanical Rate FiO2 % Tidal Volume PEEP Crit Value Called To Crit Value Called By Crit Value Read Back Blood Gas Notified Time Sodium (132-148) mmol/l Potassium (3.6-5.0) MMOL/L Chloride (98-107) mmol/L Carbon Dioxide (22-30) mmol/L Anion Gap (10-20) BUN (9-20) mg/dl Creatinine (0.8-1.5) mg/dl Est GFR ( Amer) Est GFR (Non-Af Amer) POC Glucose (mg/dL) 209 H (65-110) mg/dL Random Glucose (75-110) mg/dL Lactic Acid (0.7-2.1) mmol/L Calcium (8.4-10.2) mg/dL Phosphorus (2.5-4.5) mg/dl Magnesium (1.6-2.3) MG/DL Total Bilirubin (0.2-1.3) mg/dl AST (17-59) U/L ALT (21-72) U/L Alkaline Phosphatase (38-126) U/L Troponin I (0.00-0.120) ng/mL Total Protein (6.3-8.2) G/DL Albumin (3.5-5.0) g/dL Globulin (2.2-3.9) gm/dL Albumin/Globulin Ratio (1.0-2.1) Arterial Blood Potassium (3.6-5.2) mmol/L Mycoplasma pneumon IgM Negative (NEGATIVE) Laboratory Results - last 24 hr 12/22/18 12/23/18 12/23/18 16:49 15:22 15:27 WBC RBC Hgb Hct MCV MCH MCHC RDW Plt Count MPV Neut % (Auto) Lymph % (Auto) Mclennan % (Auto) Eos % (Auto) Baso % (Auto) Neut # (Auto) Lymph # (Auto) Mclennan # (Auto) Eos # (Auto) Baso # (Auto) Neutrophils % (Manual) Lymphocytes % (Manual) Monocytes % (Manual) Platelet Estimate Poikilocytosis (manual Anisocytosis (manual) Ovalocytes pCO2 91 H* pO2 49 L HCO3 26.0 ABG pH 7.18 L* ABG Total CO2 36.8 H ABG O2 Saturation 80.2 L ABG O2 Content 16.4 ABG Base Excess 2.2 ABG Hemoglobin 15.0 ABG Carboxyhemoglobin 2.0 H POC ABG HHb (Measured) 19.2 H ABG Methemoglobin 1.1 ABG O2 Capacity 20.4 [place] Test Yes ABG Potassium A-a O2 Difference 550.0 Hgb O2 Saturation 77.7 L Glucose Lactate Vent Mode Mechanical Rate FiO2 100.0 Tidal Volume PEEP Crit Value Called To yury Olson Crit Value Called By 22 Crit Value Read Back Y Blood Gas Notified Time 1532 Sodium Potassium Chloride Carbon Dioxide Anion Gap BUN Creatinine Est GFR ( Amer) Est GFR (Non-Af Amer) POC Glucose (mg/dL) 209 H Random Glucose Lactic Acid Calcium Phosphorus Magnesium Total Bilirubin AST ALT Alkaline Phosphatase Troponin I Total Protein Albumin Globulin Albumin/Globulin Ratio Arterial Blood Potassium Mycoplasma pneumon IgM Negative 12/23/18 12/23/18 12/23/18 17:10 17:10 17:10 WBC 9.3 D RBC 3.95 L Hgb 12.7 Hct 38.6 MCV 97.5 H MCH 32.0 H MCHC 32.8 L RDW 15.0 H Plt Count 251 MPV Neut % (Auto) Lymph % (Auto) Mclennan % (Auto) Eos % (Auto) Baso % (Auto) Neut # (Auto) Lymph # (Auto) Mclennan # (Auto) Eos # (Auto) Baso # (Auto) Neutrophils % (Manual) Lymphocytes % (Manual) Monocytes % (Manual) Platelet Estimate Poikilocytosis (manual Anisocytosis (manual) Ovalocytes pCO2 pO2 HCO3 ABG pH ABG Total CO2 ABG O2 Saturation ABG O2 Content ABG Base Excess ABG Hemoglobin ABG Carboxyhemoglobin POC ABG HHb (Measured) ABG Methemoglobin ABG O2 Capacity [place] Test ABG Potassium A-a O2 Difference Hgb O2 Saturation Glucose Lactate Vent Mode Mechanical Rate FiO2 Tidal Volume PEEP Crit Value Called To Crit Value Called By Crit Value Read Back Blood Gas Notified Time Sodium 139 Potassium 3.9 Chloride 101 Carbon Dioxide 32 H Anion Gap 10 BUN 35 H Creatinine 1.2 Est GFR ( Amer) > 60 Est GFR (Non-Af Amer) 59 POC Glucose (mg/dL) Random Glucose 179 H Lactic Acid 1.4 Calcium 8.6 Phosphorus Magnesium Total Bilirubin AST ALT Alkaline Phosphatase Troponin I Total Protein Albumin Globulin Albumin/Globulin Ratio Arterial Blood Potassium Mycoplasma pneumon IgM 12/23/18 12/23/18 12/24/18 17:20 20:45 05:11 WBC RBC Hgb Hct MCV MCH MCHC RDW Plt Count MPV Neut % (Auto) Lymph % (Auto) Mclennan % (Auto) Eos % (Auto) Baso % (Auto) Neut # (Auto) Lymph # (Auto) Mclennan # (Auto) Eos # (Auto) Baso # (Auto) Neutrophils % (Manual) Lymphocytes % (Manual) Monocytes % (Manual) Platelet Estimate Poikilocytosis (manual Anisocytosis (manual) Ovalocytes pCO2 56 H 38 pO2 88 194 H HCO3 29.2 H 29.7 H ABG pH 7.37 7.50 H ABG Total CO2 34.1 H 30.8 H ABG O2 Saturation 98.6 H 100.3 H ABG O2 Content ABG Base Excess 5.5 H 6.1 H ABG Hemoglobin ABG Carboxyhemoglobin POC ABG HHb (Measured) ABG Methemoglobin ABG O2 Capacity [place] Test Yes Yes ABG Potassium 3.6 3.9 A-a O2 Difference 555.0 400.0 Hgb O2 Saturation Glucose 169 H 131 H Lactate 1.0 1.2 Vent Mode A/c A/c Mechanical Rate 12 12 FiO2 100.0 90.0 Tidal Volume 500 500 PEEP 5 Crit Value Called To Crit Value Called By Crit Value Read Back Blood Gas Notified Time Sodium 140.0 137.0 Potassium Chloride 103.0 108.0 H Carbon Dioxide Anion Gap BUN Creatinine Est GFR ( Amer) Est GFR (Non-Af Amer) POC Glucose (mg/dL) Random Glucose Lactic Acid Calcium Phosphorus Magnesium Total Bilirubin AST ALT Alkaline Phosphatase Troponin I 0.0300 Total Protein Albumin Globulin Albumin/Globulin Ratio Arterial Blood Potassium 3.6 3.9 Mycoplasma pneumon IgM 12/24/18 12/24/18 07:00 07:00 WBC 8.1 RBC 3.67 L Hgb 11.9 L Hct 36.3 MCV 98.7 H MCH 32.5 H MCHC 32.9 L RDW 14.9 H Plt Count 221 MPV 8.1 Neut % (Auto) 85.9 H Lymph % (Auto) 5.9 L Mclennan % (Auto) 7.9 Eos % (Auto) 0.0 Baso % (Auto) 0.3 Neut # (Auto) 6.9 Lymph # (Auto) 0.5 L Mclennan # (Auto) 0.6 Eos # (Auto) 0.0 Baso # (Auto) 0.0 Neutrophils % (Manual) 95 H Lymphocytes % (Manual) 1 L Monocytes % (Manual) 4 Platelet Estimate Normal Poikilocytosis (manual Slight Anisocytosis (manual) Slight Ovalocytes Slight pCO2 pO2 HCO3 ABG pH ABG Total CO2 ABG O2 Saturation ABG O2 Content ABG Base Excess ABG Hemoglobin ABG Carboxyhemoglobin POC ABG HHb (Measured) ABG Methemoglobin ABG O2 Capacity [place] Test ABG Potassium A-a O2 Difference Hgb O2 Saturation Glucose Lactate Vent Mode Mechanical Rate FiO2 Tidal Volume PEEP Crit Value Called To Crit Value Called By Crit Value Read Back Blood Gas Notified Time Sodium 139 Potassium 3.9 Chloride 103 Carbon Dioxide 31 H Anion Gap 9 L BUN 38 H Creatinine 1.2 Est GFR ( Amer) > 60 Est GFR (Non-Af Amer) 59 POC Glucose (mg/dL) Random Glucose 121 H Lactic Acid Calcium 8.4 Phosphorus 4.7 H Magnesium 2.0 Total Bilirubin 0.9 AST 46 ALT 80 H Alkaline Phosphatase 127 H Troponin I Total Protein 5.7 L Albumin 2.7 L Globulin 2.9 Albumin/Globulin Ratio 0.9 L Arterial Blood Potassium Mycoplasma pneumon IgM Radiology Impressions: Radiology Impressions Chest X-Ray 12/23/18 15:52 IMPRESSION: Improving diffuse right-sided pulmonary opacity. New mild left perihilar opacity. Mild decrease in size of small bilateral pleural effusions. Nasogastric tube tip just beneath the diaphragm and should be advanced or replaced. Endotracheal tube tip at the level of the thoracic inlet. Consider advancement of its position. Chest X-Ray 12/24/18 05:00 IMPRESSION: No interval change in mild bilateral pleural effusions and prominent right but [id number] left side infiltrates. Fingerstick Blood Sugar Results: 122 Review of Systems - Review of Systems Review of Systems: Unable to perform ROS due to intubation. Critical Care Progress Note - Nutrition Nutrition: Nutrition Category Date Time Status Heart Healthy Diet [DIET] Diets 12/15/18 Lunch Active Assessment/Plan - Assessment and Plan (Free Text) Assessment: 69 year old Male with PMHx uncontrolled HTN, atrial fibrillation, PTSD, baseline dementia initially presented to ED on 12/15/18 for shortness of breath and inability to sleep x 3 days. Patient was found to have Afib with RVR in ED and was admitted for further management of atrial fibrillation. Over the course of patients stay, patient was reported to be more lethargic. Patient was found to have possible metabolic encephalopathy with CT Head and EEG negative for acute pathology or occult seizure disorder. Patient was found to have right sided infiltrate on CXR on 12/21/[address] on 12/22/18 shows multifocal pneumonia. Patient was transferred and admitted to ICU on 12/23/18 for acute hypoxemic hypercapneic respiratory failure s/p intubated yesterday. Plan: Acute hypoxemic hypercapneic respiratory failure -r/o HAP -on ventilation with vent setting of TV 500, RR 12, PEEP 5, FiO2 60% -Wean off from ventilator slowly. -Chest CT on 12/22/18: multifocal pneumonia -c/w Meropenem 1 gm IVPB Q8 -c/w Metronidazole IVPB Q12 -c/w Vancomycin 1 mg IVPB Q12 -ID Dr. Quinn on board -Pulmonary consult: Dr. Felton -Pulmonary toilet -c/w duoneb qid, mucomyst 2 ml BID -f/u serial ABG, AM labs, sputum cx and blood cx Atrial fibrillation with RVR -Roll Operator Dr. Banda on board -on cardizem drip at 7.5 mg/hr -C/W Lovenox 110 mg sc q12 Mild diffuse encephalopathy on EEG -Likely metabolic secondary to CO2 retention. -ABG shows improved CO2 of 38 -Neuro on board Diet: OGT feeds: Jevity 1.2 @ 60 cc/hr GI prophylaxis Famotidine 20 mg ivp q12 DVT prophylaxis -On Lovenox 110 mg sc q12 Patient seen, evaluated and plan discussed with Dr. Yury Bennett, pgy-2 <Main Roldan - Last Filed: 12/24/18 15:30> Assessment/Plan - Assessment and Plan (Free Text) Plan: Time spent with this patient did not overlap with any other provider's medical or critical care time. Additionally the code selected for the services rendered in this note includes the time spent: talking to the patients family, associated physicians and reviewing hospital data/results not listed here which extended to a total of 40 minutes of critical care. Attestation: Patient seen and examined at the bedside with Resident Dr. Leon Bennett; and I agree with his outline of plans and management documented above as discussed on AM rounds reflecting my review of all applicable clinical data, and participation in the care of the patient throughout the day in ICU; today, December 24, 2018.
--- NOTE | 2018-12-24 11:54 | CP.PCM.PN ---
Subjective - Date & Time of Evaluation Date of Evaluation: 12/24/18 Time of Evaluation: 11:54 - Subjective Subjective: ID note- Patient seen and examined today in ICU. pt. was transferred to ICU yesterday for acute hypoxemic hypercapneic respiratory failure s/p intubated yesterday. pt. is awake , is on the vent. slight agitation. Objective - Vital Signs/Intake and Output Vital Signs (last 24 hours): Temp Pulse Resp BP Pulse Ox 98.1 F 100 H 13 95/63 L 100 12/24/18 04:00 12/24/18 10:00 12/24/18 10:00 12/24/18 10:00 12/24/18 10:00 Intake and Output: 12/24/18 12/24/18 06:59 18:59 Intake Total 725 840 Output Total 200 Balance 725 640 - Medications Medications: Current Medications Acetaminophen (Tylenol 325mg Tab) 650 mg PO Q6 PRN PRN Reason: Pain, Mild (1-3) Last Admin: 12/18/18 16:45 Dose: 650 mg Acetylcysteine (Mucomyst 10% 4ml) 2 ml IH RBID [facility] Last Admin: 12/24/18 08:25 Dose: 2 ml Albuterol/Ipratropium (Duoneb 3 Mg/0.5 Mg (3 Ml) Ud) 3 ml INH RQID [facility] Last Admin: 12/23/18 19:08 Dose: Not Given Alprazolam (Xanax) 0.5 mg PO Q12 [facility] Stop: 12/27/18 10:31 Last Admin: 12/23/18 10:34 Dose: 0.5 mg Docusate Sodium (Colace) 100 mg PO DAILY [facility] Last Admin: 12/23/18 10:29 Dose: 100 mg Enoxaparin Sodium (Lovenox) 110 mg SC Q12 [facility]; Protocol Last Admin: 12/24/18 08:31 Dose: 110 mg Famotidine (Pepcid) 20 mg IVP Q12 [facility] Last Admin: 12/24/18 08:35 Dose: 20 mg Furosemide (Lasix) 40 mg IVP BID [facility] Last Admin: 12/24/18 08:32 Dose: 40 mg Metronidazole (Flagyl 500mg/100ml Ns) 100 mls @ 100 mls/hr IVPB Q12 [facility]; Protocol Last Admin: 12/24/18 08:33 Dose: 100 mls/hr Meropenem 1 gm/ Sodium (Chloride) 100 mls @ 100 mls/hr IVPB Q8 [facility]; Protocol Last Admin: 12/24/18 08:28 Dose: 100 mls/hr Vancomycin HCl 1 gm/ Sodium (Chloride) 250 mls @ 166.667 mls/hr IVPB Q12 [facility]; Protocol Last Admin: 12/24/18 08:30 Dose: 166.667 mls/hr Lactic Acid (Lac-Hydrin 12% Lotion (225 G)) 1 applic TOP BID [facility] Last Admin: 12/24/18 08:32 Dose: 1 applic Levalbuterol HCl (Xopenex) 0.63 mg IH RTID [facility] Last Admin: 12/24/18 08:25 Dose: 0.63 mg Promethazine HCl/Dextromethorphan (Phenergan Dm Syrup) 5 ml PO Q6 PRN PRN Reason: Cough and congestion Last Admin: 12/15/18 22:00 Dose: 5 ml - Labs Labs: - Constitutional Appears: Agitated - Head Exam Head Exam: ATRAUMATIC - ENT Exam Additional comments: ET and OGT in place - Respiratory Exam Additional comments: on the vent decreased breath sounds at right base - Cardiovascular Exam Cardiovascular Exam: Tachycardia, +S1, +S2 - GI/Abdominal Exam GI & Abdominal Exam: Soft, Normal Bowel Sounds Additional comments: NT, ND - Extremities Exam Extremities Exam: Normal Inspection - Neurological Exam Neurological Exam: Awake - Additional Findings Additional findings: Laboratory Results - last 72 hr 12/22/18 12/22/18 12/22/18 04:50 04:50 16:49 WBC 6.9 RBC 4.14 L Hgb 13.3 Hct 40.4 MCV 97.6 H MCH 32.3 H MCHC 33.1 RDW 14.5 Plt Count 236 MPV Neut % (Auto) Lymph % (Auto) [place] % (Auto) Eos % (Auto) Baso % (Auto) Neut # (Auto) Lymph # (Auto) [place] # (Auto) Eos # (Auto) Baso # (Auto) Neutrophils % (Manual) Lymphocytes % (Manual) Monocytes % (Manual) Platelet Estimate Poikilocytosis (manual Anisocytosis (manual) Ovalocytes ESR pCO2 pO2 HCO3 ABG pH ABG Total CO2 ABG O2 Saturation ABG O2 Content ABG Base Excess ABG Hemoglobin ABG Carboxyhemoglobin POC ABG HHb (Measured) ABG Methemoglobin ABG O2 Capacity [place] Test ABG Potassium A-a O2 Difference Hgb O2 Saturation Glucose Lactate Vent Mode Mechanical Rate FiO2 Tidal Volume PEEP Crit Value Called To Crit Value Called By Crit Value Read Back Blood Gas Notified Time Sodium 137 Potassium 4.2 Chloride 101 Carbon Dioxide 30 Anion Gap 10 BUN 35 H Creatinine 1.1 Est GFR ( Amer) > 60 Est GFR (Non-Af Amer) > 60 POC Glucose (mg/dL) Random Glucose 100 Lactic Acid Calcium 8.6 Phosphorus 4.5 Magnesium 2.1 Total Bilirubin 1.2 Direct Bilirubin AST 65 H ALT 96 H Alkaline Phosphatase 146 H D Troponin I NT-Pro-B Natriuret Pep Total Protein 6.5 Albumin 3.2 L Globulin 3.3 Albumin/Globulin Ratio 1.0 Arterial Blood Potassium Urine Color Urine Clarity Urine pH Ur Specific [place] Urine Protein Urine Glucose (UA) Urine Ketones Urine Blood Urine Nitrate Urine Bilirubin Urine Urobilinogen Ur Leukocyte Esterase Urine RBC (Auto) Urine Microscopic WBC Hepatitis A IgM Ab Hep Bs Antigen Hep B Core IgM Ab Hepatitis C Antibody Ur L.pneumophila Ag Mycoplasma pneumon IgM Negative 12/22/18 12/22/18 12/22/18 16:49 17:25 22:35 WBC RBC Hgb Hct MCV MCH MCHC RDW Plt Count MPV Neut % (Auto) Lymph % (Auto) [place] % (Auto) Eos % (Auto) Baso % (Auto) Neut # (Auto) Lymph # (Auto) [place] # (Auto) Eos # (Auto) Baso # (Auto) Neutrophils % (Manual) Lymphocytes % (Manual) Monocytes % (Manual) Platelet Estimate Poikilocytosis (manual Anisocytosis (manual) Ovalocytes ESR pCO2 pO2 HCO3 ABG pH ABG Total CO2 ABG O2 Saturation ABG O2 Content ABG Base Excess ABG Hemoglobin ABG Carboxyhemoglobin POC ABG HHb (Measured) ABG Methemoglobin ABG O2 Capacity [place] Test ABG Potassium A-a O2 Difference Hgb O2 Saturation Glucose Lactate Vent Mode Mechanical Rate FiO2 Tidal Volume PEEP Crit Value Called To Crit Value Called By Crit Value Read Back Blood Gas Notified Time Sodium Potassium Chloride Carbon Dioxide Anion Gap BUN Creatinine Est GFR ( Amer) Est GFR (Non-Af Amer) POC Glucose (mg/dL) Random Glucose Lactic Acid Calcium Phosphorus Magnesium Total Bilirubin Direct Bilirubin AST ALT Alkaline Phosphatase Troponin I NT-Pro-B Natriuret Pep Total Protein Albumin Globulin Albumin/Globulin Ratio Arterial Blood Potassium Urine Color Yellow Urine Clarity Clear Urine pH 6.0 Ur Specific [place] 1.010 Urine Protein Negative Urine Glucose (UA) Neg Urine Ketones Negative Urine Blood Negative Urine Nitrate Negative Urine Bilirubin Negative Urine Urobilinogen 0.2-1.0 Ur Leukocyte Esterase Neg Urine RBC (Auto) 2 Urine Microscopic WBC 1 Hepatitis A IgM Ab Negative Hep Bs Antigen Negative Hep B Core IgM Ab Negative Hepatitis C Antibody Negative Ur L.pneumophila Ag Negative Mycoplasma pneumon IgM 12/23/18 12/23/18 12/23/18 04:35 04:35 15:22 WBC 6.1 RBC 4.04 L Hgb 13.1 Hct 39.3 MCV 97.3 H MCH 32.5 H MCHC 33.4 RDW 14.6 H Plt Count 228 MPV Neut % (Auto) Lymph % (Auto) [place] % (Auto) Eos % (Auto) Baso % (Auto) Neut # (Auto) Lymph # (Auto) [place] # (Auto) Eos # (Auto) Baso # (Auto) Neutrophils % (Manual) Lymphocytes % (Manual) Monocytes % (Manual) Platelet Estimate Poikilocytosis (manual Anisocytosis (manual) Ovalocytes ESR 62 H pCO2 pO2 HCO3 ABG pH ABG Total CO2 ABG O2 Saturation ABG O2 Content ABG Base Excess ABG Hemoglobin ABG Carboxyhemoglobin POC ABG HHb (Measured) ABG Methemoglobin ABG O2 Capacity [place] Test ABG Potassium A-a O2 Difference Hgb O2 Saturation Glucose Lactate Vent Mode Mechanical Rate FiO2 Tidal Volume PEEP Crit Value Called To Crit Value Called By Crit Value Read Back Blood Gas Notified Time Sodium 138 Potassium 3.6 Chloride 100 Carbon Dioxide 31 H Anion Gap 11 BUN 34 H Creatinine 1.1 Est GFR ( Amer) > 60 Est GFR (Non-Af Amer) > 60 POC Glucose (mg/dL) 209 H Random Glucose 109 Lactic Acid Calcium 8.1 L Phosphorus Magnesium 1.9 Total Bilirubin 1.0 Direct Bilirubin 0.6 H AST 56 ALT 90 H Alkaline Phosphatase 146 H Troponin I NT-Pro-B Natriuret Pep Total Protein 6.4 Albumin 3.1 L Globulin 3.3 Albumin/Globulin Ratio 0.9 L Arterial Blood Potassium Urine Color Urine Clarity Urine pH Ur Specific [place] Urine Protein Urine Glucose (UA) Urine Ketones Urine Blood Urine Nitrate Urine Bilirubin Urine Urobilinogen Ur Leukocyte Esterase Urine RBC (Auto) Urine Microscopic WBC Hepatitis A IgM Ab Hep Bs Antigen Hep B Core IgM Ab Hepatitis C Antibody Ur L.pneumophila Ag Mycoplasma pneumon IgM 12/23/18 12/23/18 12/23/18 15:27 17:10 17:10 WBC 9.3 D RBC 3.95 L Hgb 12.7 Hct 38.6 MCV 97.5 H MCH 32.0 H MCHC 32.8 L RDW 15.0 H Plt Count 251 MPV Neut % (Auto) Lymph % (Auto) [place] % (Auto) Eos % (Auto) Baso % (Auto) Neut # (Auto) Lymph # (Auto) [place] # (Auto) Eos # (Auto) Baso # (Auto) Neutrophils % (Manual) Lymphocytes % (Manual) Monocytes % (Manual) Platelet Estimate Poikilocytosis (manual Anisocytosis (manual) Ovalocytes ESR pCO2 91 H* pO2 49 L HCO3 26.0 ABG pH 7.18 L* ABG Total CO2 36.8 H ABG O2 Saturation 80.2 L ABG O2 Content 16.4 ABG Base Excess 2.2 ABG Hemoglobin 15.0 ABG Carboxyhemoglobin 2.0 H POC ABG HHb (Measured) 19.2 H ABG Methemoglobin 1.1 ABG O2 Capacity 20.4 [place] Test Yes ABG Potassium A-a O2 Difference 550.0 Hgb O2 Saturation 77.7 L Glucose Lactate Vent Mode Mechanical Rate FiO2 100.0 Tidal Volume PEEP Crit Value Called To yury Olson Crit Value Called By 22 Crit Value Read Back Y Blood Gas Notified Time 1532 Sodium 139 Potassium 3.9 Chloride 101 Carbon Dioxide 32 H Anion Gap 10 BUN 35 H Creatinine 1.2 Est GFR ( Amer) > 60 Est GFR (Non-Af Amer) 59 POC Glucose (mg/dL) Random Glucose 179 H Lactic Acid Calcium 8.6 Phosphorus Magnesium Total Bilirubin Direct Bilirubin AST ALT Alkaline Phosphatase Troponin I NT-Pro-B Natriuret Pep Total Protein Albumin Globulin Albumin/Globulin Ratio Arterial Blood Potassium Urine Color Urine Clarity Urine pH Ur Specific [place] Urine Protein Urine Glucose (UA) Urine Ketones Urine Blood Urine Nitrate Urine Bilirubin Urine Urobilinogen Ur Leukocyte Esterase Urine RBC (Auto) Urine Microscopic WBC Hepatitis A IgM Ab Hep Bs Antigen Hep B Core IgM Ab Hepatitis C Antibody Ur L.pneumophila Ag Mycoplasma pneumon IgM 12/23/18 12/23/18 12/23/18 17:10 17:20 20:45 WBC RBC Hgb Hct MCV MCH MCHC RDW Plt Count MPV Neut % (Auto) Lymph % (Auto) [place] % (Auto) Eos % (Auto) Baso % (Auto) Neut # (Auto) Lymph # (Auto) [place] # (Auto) Eos # (Auto) Baso # (Auto) Neutrophils % (Manual) Lymphocytes % (Manual) Monocytes % (Manual) Platelet Estimate Poikilocytosis (manual Anisocytosis (manual) Ovalocytes ESR pCO2 56 H pO2 88 HCO3 29.2 H ABG pH 7.37 ABG Total CO2 34.1 H ABG O2 Saturation 98.6 H ABG O2 Content ABG Base Excess 5.5 H ABG Hemoglobin ABG Carboxyhemoglobin POC ABG HHb (Measured) ABG Methemoglobin ABG O2 Capacity [place] Test Yes ABG Potassium 3.6 A-a O2 Difference 555.0 Hgb O2 Saturation Glucose 169 H Lactate 1.0 Vent Mode A/c Mechanical Rate 12 FiO2 100.0 Tidal Volume 500 PEEP Crit Value Called To Crit Value Called By Crit Value Read Back Blood Gas Notified Time Sodium 140.0 Potassium Chloride 103.0 Carbon Dioxide Anion Gap BUN Creatinine Est GFR ( Amer) Est GFR (Non-Af Amer) POC Glucose (mg/dL) Random Glucose Lactic Acid 1.4 Calcium Phosphorus Magnesium Total Bilirubin Direct Bilirubin AST ALT Alkaline Phosphatase Troponin I 0.0300 NT-Pro-B Natriuret Pep Total Protein Albumin Globulin Albumin/Globulin Ratio Arterial Blood Potassium 3.6 Urine Color Urine Clarity Urine pH Ur Specific [place] Urine Protein Urine Glucose (UA) Urine Ketones Urine Blood Urine Nitrate Urine Bilirubin Urine Urobilinogen Ur Leukocyte Esterase Urine RBC (Auto) Urine Microscopic WBC Hepatitis A IgM Ab Hep Bs Antigen Hep B Core IgM Ab Hepatitis C Antibody Ur L.pneumophila Ag Mycoplasma pneumon IgM 12/24/18 12/24/18 12/24/18 05:11 07:00 07:00 WBC 8.1 RBC 3.67 L Hgb 11.9 L Hct 36.3 MCV 98.7 H MCH 32.5 H MCHC 32.9 L RDW 14.9 H Plt Count 221 MPV 8.1 Neut % (Auto) 85.9 H Lymph % (Auto) 5.9 L [place] % (Auto) 7.9 Eos % (Auto) 0.0 Baso % (Auto) 0.3 Neut # (Auto) 6.9 Lymph # (Auto) 0.5 L [place] # (Auto) 0.6 Eos # (Auto) 0.0 Baso # (Auto) 0.0 Neutrophils % (Manual) 95 H Lymphocytes % (Manual) 1 L Monocytes % (Manual) 4 Platelet Estimate Normal Poikilocytosis (manual Slight Anisocytosis (manual) Slight Ovalocytes Slight ESR pCO2 38 pO2 194 H HCO3 29.7 H ABG pH 7.50 H ABG Total CO2 30.8 H ABG O2 Saturation 100.3 H ABG O2 Content ABG Base Excess 6.1 H ABG Hemoglobin ABG Carboxyhemoglobin POC ABG HHb (Measured) ABG Methemoglobin ABG O2 Capacity [place] Test Yes ABG Potassium 3.9 A-a O2 Difference 400.0 Hgb O2 Saturation Glucose 131 H Lactate 1.2 Vent Mode A/c Mechanical Rate 12 FiO2 90.0 Tidal Volume 500 PEEP 5 Crit Value Called To Crit Value Called By Crit Value Read Back Blood Gas Notified Time Sodium 137.0 139 Potassium 3.9 Chloride 108.0 H 103 Carbon Dioxide 31 H Anion Gap 9 L BUN 38 H Creatinine 1.2 Est GFR ( Amer) > 60 Est GFR (Non-Af Amer) 59 POC Glucose (mg/dL) Random Glucose 121 H Lactic Acid Calcium 8.4 Phosphorus 4.7 H Magnesium 2.0 Total Bilirubin 0.9 Direct Bilirubin AST 46 ALT 80 H Alkaline Phosphatase 127 H Troponin I NT-Pro-B Natriuret Pep Total Protein 5.7 L Albumin 2.7 L Globulin 2.9 Albumin/Globulin Ratio 0.9 L Arterial Blood Potassium 3.9 Urine Color Urine Clarity Urine pH Ur Specific [place] Urine Protein Urine Glucose (UA) Urine Ketones Urine Blood Urine Nitrate Urine Bilirubin Urine Urobilinogen Ur Leukocyte Esterase Urine RBC (Auto) Urine Microscopic WBC Hepatitis A IgM Ab Hep Bs Antigen Hep B Core IgM Ab Hepatitis C Antibody Ur L.pneumophila Ag Mycoplasma pneumon IgM 12/24/18 11:02 WBC RBC Hgb Hct MCV MCH MCHC RDW Plt Count MPV Neut % (Auto) Lymph % (Auto) [place] % (Auto) Eos % (Auto) Baso % (Auto) Neut # (Auto) Lymph # (Auto) [place] # (Auto) Eos # (Auto) Baso # (Auto) Neutrophils % (Manual) Lymphocytes % (Manual) Monocytes % (Manual) Platelet Estimate Poikilocytosis (manual Anisocytosis (manual) Ovalocytes ESR pCO2 pO2 HCO3 ABG pH ABG Total CO2 ABG O2 Saturation ABG O2 Content ABG Base Excess ABG Hemoglobin ABG Carboxyhemoglobin POC ABG HHb (Measured) ABG Methemoglobin ABG O2 Capacity [place] Test ABG Potassium A-a O2 Difference Hgb O2 Saturation Glucose Lactate Vent Mode Mechanical Rate FiO2 Tidal Volume PEEP Crit Value Called To Crit Value Called By Crit Value Read Back Blood Gas Notified Time Sodium Potassium Chloride Carbon Dioxide Anion Gap BUN Creatinine Est GFR ( Amer) Est GFR (Non-Af Amer) POC Glucose (mg/dL) Random Glucose Lactic Acid Calcium Phosphorus Magnesium Total Bilirubin Direct Bilirubin AST ALT Alkaline Phosphatase Troponin I NT-Pro-B Natriuret Pep 3380 H Total Protein Albumin Globulin Albumin/Globulin Ratio Arterial Blood Potassium Urine Color Urine Clarity Urine pH Ur Specific [place] Urine Protein Urine Glucose (UA) Urine Ketones Urine Blood Urine Nitrate Urine Bilirubin Urine Urobilinogen Ur Leukocyte Esterase Urine RBC (Auto) Urine Microscopic WBC Hepatitis A IgM Ab Hep Bs Antigen Hep B Core IgM Ab Hepatitis C Antibody Ur L.pneumophila Ag Mycoplasma pneumon IgM Microbiology 12/23/18 17:10 Trachasp Gram Stain - Final 12/21/18 17:20 Blood-Venous Blood Culture - Preliminary NO GROWTH AFTER 48 HOURS 12/21/18 17:25 Blood-Venous Blood Culture - Preliminary NO GROWTH AFTER 48 HOURS 12/22/18 16:49 Blood-Venous Blood Culture - Preliminary NO GROWTH AFTER 24 HOURS Accession No. : [id number] Patient Name / ID : ASHISH Gutierrez / [id number] Exam Date : 12/24/2018 04:44:09 ( Approved ) Study Comment : Sex / Age : M / [id number] Creator : Nick Dorantes MD Dictator : Nick Dorantes MD Electronic Maintenance Supervisor : [employer] Offbearer : Nick Dorantes MD Approver2 : Report Date : 12/24/2018 07:49:37 My Comment : Date of service: 12/24/2018 HISTORY: intubated COMPARISON: Portable chest 12/23/2018 3:52 p.m.. TECHNIQUE: 1 view obtained. FINDINGS: LUNGS: Endotracheal and orogastric tubes are stable in position. Persistent bilateral pleural effusions remain slightly greater the right than left sides though both are mild. Diffuse infiltrates in the right chest once again and are not significantly changed at the left perihilar region. No pneumothorax bilaterally. PLEURA: As above. CARDIOVASCULAR: Calcific atherosclerotic changes are seen related to the thoracic aorta. Normal cardiac size. No pulmonary vascular congestion. OSSEOUS STRUCTURES: No significant abnormalities. VISUALIZED UPPER ABDOMEN: Normal. OTHER FINDINGS: None. IMPRESSION: No interval change in mild bilateral pleural effusions and prominent right but [id number] left side infiltrates. Assessment and Plan (1) Atrial fibrillation with RVR Status: Acute (2) Altered mental status Status: Acute (3) Pneumonia Status: Acute (4) Multifocal pneumonia Status: Acute - Assessment and Plan (Free Text) Assessment: A/P- 73 year old male with a.fib and now found to have altered mental status and Right sided pneumonia , developed hypercapneic resp failure yesterday afternoon , s/p intubation and transferred to ICU. Intubated aspiration pneumonia of the right lung , multifocal pneumonia afebrile normal wbc count Blood cx- neg x 3 trach asp cx- pending hepatitis panel- neg urine legionella AG- neg mycoplasma IGM- negative PLan- continue with IV meropnem day #2. continue with IV vancomyicn day #2. keep vanco trough <15. can continue the metronidazole day #3 for anaerobic coverage as well. all labs and imaging and chart notes reviewed. Critical care time spent 60 minutes.
[2018-12-24] MEDS: Dexmedetomidine Hydrochloride 400 MCG in Sodium Chloride 0.9% 96 ML IV ONE (11:56)
--- NOTE | 2018-12-24 13:32 | CP.PCM.CON ---
History of Present Illness - History of Present Illness History of Present Illness: CC: respiratory Failure. Pulmonary consult for a 73 y/o M, admitted to ICU on 12/23/18 due to Hypercapneic Respiratory Failure associated to R Lung Asp. PNA/ Multifocal PNA, Pleural Effusion b/l on CT Chest. Pt was brought via EMS on 12/15/18 for evaluation of increased SOB for one week associated to cough, dry at this time, also associated to chest pain with coughing and palpitations with no relief. Worsening symptoms: founded with A Fib with RVR associated to palpitations, legs edema, Pt was admitted and there after developed acute Hypercapneic/Hypoxemic respiratory Failure with scant amount of bloody tinged thin mucous. Pt was intubated and admitted to ICU. PMHx: COPD, HTN, PNA, Falls, Skin Ca with removal of lesion in the L upper arm. Aggravating factor: Non in compliance with medications. No: fever, chills, n/v/d, urinary symptoms, abdominal pain, syncope, sick contact, recent travel out of [facility]. CXR: No changes in b/l pleural effusion and b/l pulmonary infiltrates. Ext US: No DVT. Review of Systems - Review of Systems Systems not reviewed;Unavailable: Acuity of Condition, Intubated Past Patient History - Infectious Disease Hx of Infectious Diseases: None - Tetanus Immunizations Tetanus Immunization: Unknown - Past Medical History & Family History Past Medical History?: Yes Pertinent Family History: Unknown - Past Social History Smoking Status: Former Smoker (reported on 06/08/14.) Chewing Tobacco Use: No Cigar Use: No Alcohol: None Drugs: Denies Home Situation {Lives}: Alone - CARDIAC Hx Cardiac Disorders: Yes Hx Atrial Fibrillation: Yes Hx Hypercholesterolemia: Yes Hx Hypertension: Yes Hx Peripheral Edema: Yes - PULMONARY Hx Respiratory Disorders: Yes (SOB) Hx Emphysema: No Hx Pulmonary Embolism: No Hx Sleep Apnea: No - NEUROLOGICAL Hx Neurological Disorder: No Hx Dementia: No Hx Seizures: No Hx Transient Ischemic Attacks (TIA): No - HEENT Hx HEENT Problems: No Hx Blind: No Hx Cataracts: No Hx Deafness: No Hx Difficulty Chewing: No Hx Epistaxis: No Hx Glaucoma: No Hx Macular Degeneration: No - RENAL Hx Chronic Kidney Disease: No - ENDOCRINE/METABOLIC Hx Endocrine Disorders: No Hx Hyperthyroidism: No Hx Hypothyroidism: No - HEMATOLOGICAL/ONCOLOGICAL Hx Blood Disorders: No Hx Sickle Cell Disease: No - INTEGUMENTARY Hx Dermatological Problems: No Other/Comment: Skin Ca with removal of lesion from left upper arm - MUSCULOSKELETAL/RHEUMATOLOGICAL Hx Musculoskeletal Disorders: Yes Hx Falls: Yes Hx Fractures: No Hx Rheumatoid Arthritis: No - GASTROINTESTINAL Hx Gastrointestinal Disorders: No Hx Diverticulitis: No Hx Gall Bladder Disease: No Hx Gastritis: No - GENITOURINARY/GYNECOLOGICAL Hx Genitourinary Disorders: No Hx Sexually Transmitted Disorders: No - PSYCHIATRIC Hx Psychophysiologic Disorder: Yes Hx Anxiety: Yes - SURGICAL HISTORY Hx Surgeries: Yes Hx Tonsillectomy: No Other/Comment: Skin Ca with removal lesion in the left upper arm. - ANESTHESIA Hx Anesthesia: Yes Hx Anesthesia Reactions: No Hx Malignant Hyperthermia: No Meds Allergies/Adverse Reactions: Allergies Allergy/AdvReac Type Severity Reaction Status Date / Time No Known Allergies Allergy Verified 12/26/18 12:23 - Medications Medications: Current Medications Acetaminophen (Tylenol 325mg Tab) 650 mg PO Q6 PRN PRN Reason: Pain, Mild (1-3) Last Admin: 12/18/18 16:45 Dose: 650 mg Acetylcysteine (Mucomyst 10% 4ml) 2 ml IH RBID [facility] Last Admin: 12/24/18 08:25 Dose: 2 ml Albuterol/Ipratropium (Duoneb 3 Mg/0.5 Mg (3 Ml) Ud) 3 ml INH RQID [facility] Last Admin: 12/23/18 19:08 Dose: Not Given Alprazolam (Xanax) 0.5 mg PO Q12 [facility] Stop: 12/27/18 10:31 Last Admin: 12/23/18 10:34 Dose: 0.5 mg Docusate Sodium (Colace) 100 mg PO DAILY [facility] Last Admin: 12/23/18 10:29 Dose: 100 mg Enoxaparin Sodium (Lovenox) 110 mg SC Q12 [facility]; Protocol Last Admin: 12/24/18 08:31 Dose: 110 mg Famotidine (Pepcid) 20 mg IVP Q12 [facility] Last Admin: 12/24/18 08:35 Dose: 20 mg Furosemide (Lasix) 40 mg IVP BID [facility] Last Admin: 12/24/18 08:32 Dose: 40 mg Metronidazole (Flagyl 500mg/100ml Ns) 100 mls @ 100 mls/hr IVPB Q12 [facility]; Protocol Last Admin: 12/24/18 08:33 Dose: 100 mls/hr Meropenem 1 gm/ Sodium (Chloride) 100 mls @ 100 mls/hr IVPB Q8 [facility]; Protocol Last Admin: 12/24/18 08:28 Dose: 100 mls/hr Vancomycin HCl 1 gm/ Sodium (Chloride) 250 mls @ 166.667 mls/hr IVPB Q12 [facility]; Protocol Last Admin: 12/24/18 08:30 Dose: 166.667 mls/hr Diltiazem HCl 125 mg/ Sodium (Chloride) 125 mls @ 7.5 mls/hr IV .[id number] [facility]; Protocol Stop: 12/25/18 05:59 Lactic Acid (Lac-Hydrin 12% Lotion (225 G)) 1 applic TOP BID [facility] Last Admin: 12/24/18 08:32 Dose: 1 applic Levalbuterol HCl (Xopenex) 0.63 mg IH RTID [facility] Last Admin: 12/24/18 08:25 Dose: 0.63 mg Promethazine HCl/Dextromethorphan (Phenergan Dm Syrup) 5 ml PO Q6 PRN PRN Reason: Cough and congestion Last Admin: 12/15/18 22:00 Dose: 5 ml Physical Exam - Constitutional Appears: Other (Sedated, intubated) - Head Exam Head Exam: NORMAL INSPECTION - Eye Exam Eye Exam: PERRL - ENT Exam Additional comments: Intubated, OGT - Neck Exam Neck exam: Positive for: Normal Inspection - Respiratory Exam Respiratory Exam: Decreased Breath Sounds (R base > L), Rhonchi, Wheezes - Cardiovascular Exam Cardiovascular Exam: Tachycardia, Irregular Rhythm, Systolic Murmur - GI/Abdominal Exam GI & Abdominal Exam: Normal Bowel Sounds, Soft - Exam Additional comments: Cifuentes Cath - Extremities Exam Additional comments: 2+ non pitting edema BLE - Back Exam Back exam: NORMAL INSPECTION - Neurological Exam Additional comments: Intubated, sedated - Psychiatric Exam Additional comments: Sedated - Skin Skin Exam: Dry, Warm Results - Vital Signs Recent Vital Signs: Last Vital Signs Temp 98.4 F 12/24/18 13:00 Pulse 103 H 12/24/18 13:00 Resp 12 12/24/18 13:00 BP 110/70 12/24/18 13:00 Pulse Ox 100 12/24/18 13:00 reviewed Porter - Labs Result Diagrams: 12/28/18 04:13 12/28/18 04:13 Labs: Laboratory Results - last 24 hr 12/23/18 12/23/18 12/23/18 15:22 15:27 17:10 WBC 9.3 D RBC 3.95 L Hgb 12.7 Hct 38.6 MCV 97.5 H MCH 32.0 H MCHC 32.8 L RDW 15.0 H Plt Count 251 MPV Neut % (Auto) Lymph % (Auto) [place] % (Auto) Eos % (Auto) Baso % (Auto) Neut # (Auto) Lymph # (Auto) [place] # (Auto) Eos # (Auto) Baso # (Auto) Neutrophils % (Manual) Lymphocytes % (Manual) Monocytes % (Manual) Platelet Estimate Poikilocytosis (manual Anisocytosis (manual) Ovalocytes pCO2 91 H* pO2 49 L HCO3 26.0 ABG pH 7.18 L* ABG Total CO2 36.8 H ABG O2 Saturation 80.2 L ABG O2 Content 16.4 ABG Base Excess 2.2 ABG Hemoglobin 15.0 ABG Carboxyhemoglobin 2.0 H POC ABG HHb (Measured) 19.2 H ABG Methemoglobin 1.1 ABG O2 Capacity 20.4 [place] Test Yes ABG Potassium A-a O2 Difference 550.0 Hgb O2 Saturation 77.7 L Glucose Lactate Vent Mode Mechanical Rate FiO2 100.0 Tidal Volume PEEP Crit Value Called To yury Olson Crit Value Called By 22 Crit Value Read Back Y Blood Gas Notified Time 1532 Sodium Potassium Chloride Carbon Dioxide Anion Gap BUN Creatinine Est GFR ( Amer) Est GFR (Non-Af Amer) POC Glucose (mg/dL) 209 H Random Glucose Lactic Acid Calcium Phosphorus Magnesium Total Bilirubin AST ALT Alkaline Phosphatase Troponin I NT-Pro-B Natriuret Pep Total Protein Albumin Globulin Albumin/Globulin Ratio Arterial Blood Potassium 12/23/18 12/23/18 12/23/18 17:10 17:10 17:20 WBC RBC Hgb Hct MCV MCH MCHC RDW Plt Count MPV Neut % (Auto) Lymph % (Auto) [place] % (Auto) Eos % (Auto) Baso % (Auto) Neut # (Auto) Lymph # (Auto) [place] # (Auto) Eos # (Auto) Baso # (Auto) Neutrophils % (Manual) Lymphocytes % (Manual) Monocytes % (Manual) Platelet Estimate Poikilocytosis (manual Anisocytosis (manual) Ovalocytes pCO2 56 H pO2 88 HCO3 29.2 H ABG pH 7.37 ABG Total CO2 34.1 H ABG O2 Saturation 98.6 H ABG O2 Content ABG Base Excess 5.5 H ABG Hemoglobin ABG Carboxyhemoglobin POC ABG HHb (Measured) ABG Methemoglobin ABG O2 Capacity [place] Test Yes ABG Potassium 3.6 A-a O2 Difference 555.0 Hgb O2 Saturation Glucose 169 H Lactate 1.0 Vent Mode A/c Mechanical Rate 12 FiO2 100.0 Tidal Volume 500 PEEP Crit Value Called To Crit Value Called By Crit Value Read Back Blood Gas Notified Time Sodium 139 140.0 Potassium 3.9 Chloride 101 103.0 Carbon Dioxide 32 H Anion Gap 10 BUN 35 H Creatinine 1.2 Est GFR ( Amer) > 60 Est GFR (Non-Af Amer) 59 POC Glucose (mg/dL) Random Glucose 179 H Lactic Acid 1.4 Calcium 8.6 Phosphorus Magnesium Total Bilirubin AST ALT Alkaline Phosphatase Troponin I NT-Pro-B Natriuret Pep Total Protein Albumin Globulin Albumin/Globulin Ratio Arterial Blood Potassium 3.6 12/23/18 12/24/18 12/24/18 20:45 05:11 07:00 WBC 8.1 RBC 3.67 L Hgb 11.9 L Hct 36.3 MCV 98.7 H MCH 32.5 H MCHC 32.9 L RDW 14.9 H Plt Count 221 MPV 8.1 Neut % (Auto) 85.9 H Lymph % (Auto) 5.9 L [place] % (Auto) 7.9 Eos % (Auto) 0.0 Baso % (Auto) 0.3 Neut # (Auto) 6.9 Lymph # (Auto) 0.5 L [place] # (Auto) 0.6 Eos # (Auto) 0.0 Baso # (Auto) 0.0 Neutrophils % (Manual) 95 H Lymphocytes % (Manual) 1 L Monocytes % (Manual) 4 Platelet Estimate Normal Poikilocytosis (manual Slight Anisocytosis (manual) Slight Ovalocytes Slight pCO2 38 pO2 194 H HCO3 29.7 H ABG pH 7.50 H ABG Total CO2 30.8 H ABG O2 Saturation 100.3 H ABG O2 Content ABG Base Excess 6.1 H ABG Hemoglobin ABG Carboxyhemoglobin POC ABG HHb (Measured) ABG Methemoglobin ABG O2 Capacity [place] Test Yes ABG Potassium 3.9 A-a O2 Difference 400.0 Hgb O2 Saturation Glucose 131 H Lactate 1.2 Vent Mode A/c Mechanical Rate 12 FiO2 90.0 Tidal Volume 500 PEEP 5 Crit Value Called To Crit Value Called By Crit Value Read Back Blood Gas Notified Time Sodium 137.0 Potassium Chloride 108.0 H Carbon Dioxide Anion Gap BUN Creatinine Est GFR ( Amer) Est GFR (Non-Af Amer) POC Glucose (mg/dL) Random Glucose Lactic Acid Calcium Phosphorus Magnesium Total Bilirubin AST ALT Alkaline Phosphatase Troponin I 0.0300 NT-Pro-B Natriuret Pep Total Protein Albumin Globulin Albumin/Globulin Ratio Arterial Blood Potassium 3.9 12/24/18 12/24/18 07:00 11:02 WBC RBC Hgb Hct MCV MCH MCHC RDW Plt Count MPV Neut % (Auto) Lymph % (Auto) [place] % (Auto) Eos % (Auto) Baso % (Auto) Neut # (Auto) Lymph # (Auto) [place] # (Auto) Eos # (Auto) Baso # (Auto) Neutrophils % (Manual) Lymphocytes % (Manual) Monocytes % (Manual) Platelet Estimate Poikilocytosis (manual Anisocytosis (manual) Ovalocytes pCO2 pO2 HCO3 ABG pH ABG Total CO2 ABG O2 Saturation ABG O2 Content ABG Base Excess ABG Hemoglobin ABG Carboxyhemoglobin POC ABG HHb (Measured) ABG Methemoglobin ABG O2 Capacity [place] Test ABG Potassium A-a O2 Difference Hgb O2 Saturation Glucose Lactate Vent Mode Mechanical Rate FiO2 Tidal Volume PEEP Crit Value Called To Crit Value Called By Crit Value Read Back Blood Gas Notified Time Sodium 139 Potassium 3.9 Chloride 103 Carbon Dioxide 31 H Anion Gap 9 L BUN 38 H Creatinine 1.2 Est GFR ( Amer) > 60 Est GFR (Non-Af Amer) 59 POC Glucose (mg/dL) Random Glucose 121 H Lactic Acid Calcium 8.4 Phosphorus 4.7 H Magnesium 2.0 Total Bilirubin 0.9 AST 46 ALT 80 H Alkaline Phosphatase 127 H Troponin I NT-Pro-B Natriuret Pep 3380 H Total Protein 5.7 L Albumin 2.7 L Globulin 2.9 Albumin/Globulin Ratio 0.9 L Arterial Blood Potassium reviewed J.P.reviewed J.P. - EKG Data EKG comments: reviewed RemiP. - Imaging and Cardiology CT scan - chest Status: Report reviewed by me (Porter) Chest x-ray Status: Report reviewed by me (Porter) CT scan - head Status: Report reviewed by me (Porter) Venous US Status: Report reviewed by me (Porter) Assessment & Plan (1) Respiratory failure Status: Acute Priority: High (2) Aspiration pneumonia of right lung Status: Acute Priority: High (3) Multifocal pneumonia Status: Acute Priority: High (4) Atrial fibrillation with RVR Status: Acute Priority: High (5) Pleural effusion, bilateral Status: Acute Priority: Medium (6) COPD (chronic obstructive pulmonary disease) Status: Chronic Priority: High - Assessment and Plan (Free Text) Plan: Continue respiratory support, PRVC AC 12, FIO2 50%, continue Vanco, Merren, Duoneb, Mucomyst, Phenergan DM and rest of Tx. Critical care time: 40 min. - Date & Time Date: 12/24/18 Time: 12:00
[2018-12-24] MEDS: Albuterol-Ipratrop 3 mg / 0.5 (3 ml) UD INH SCH ×4 (14:31→19:11)
--- NOTE | 2018-12-24 18:56 | CP.PCM.PN ---
Subjective - Date & Time of Evaluation Date of Evaluation: 12/24/18 Time of Evaluation: 13:00 - Subjective Subjective: PT SEEN AND EXAMINED IN ICU, RN AT BEDSIDE, BP LOW, HR IRREG AND 90-100, CARDIZEM DRIP AT 10. PT FOLLOWS WITH EYES. APPEARS ALERT. PT HAS LOW URINE OUTPUT. Objective - Vital Signs/Intake and Output Vital Signs (last 24 hours): Temp Pulse Resp BP Pulse Ox 98.2 F 120 H 12 117/72 100 12/24/18 17:00 12/24/18 17:51 12/24/18 17:51 12/24/18 17:51 12/24/18 17:51 Intake and Output: 12/24/18 12/24/18 06:59 18:59 Intake Total 725 1830 Output Total 470 Balance 725 1360 - Medications Medications: Current Medications Acetaminophen (Tylenol 325mg Tab) 650 mg PO Q6 PRN PRN Reason: Pain, Mild (1-3) Last Admin: 12/18/18 16:45 Dose: 650 mg Acetylcysteine (Mucomyst 10% 4ml) 2 ml IH RBID [facility] Last Admin: 12/24/18 08:25 Dose: 2 ml Albuterol/Ipratropium (Duoneb 3 Mg/0.5 Mg (3 Ml) Ud) 3 ml INH RQID [facility] Last Admin: 12/24/18 15:26 Dose: 3 ml Alprazolam (Xanax) 0.5 mg PO Q12 [facility] Stop: 12/27/18 10:31 Last Admin: 12/23/18 10:34 Dose: 0.5 mg Docusate Sodium (Colace) 100 mg PO DAILY [facility] Last Admin: 12/23/18 10:29 Dose: 100 mg Enoxaparin Sodium (Lovenox) 110 mg SC Q12 [facility]; Protocol Last Admin: 12/24/18 08:31 Dose: 110 mg Famotidine (Pepcid) 20 mg IVP Q12 [facility] Last Admin: 12/24/18 08:35 Dose: 20 mg Furosemide (Lasix) 40 mg IVP BID [facility] Last Admin: 12/24/18 17:15 Dose: 40 mg Metronidazole (Flagyl 500mg/100ml Ns) 100 mls @ 100 mls/hr IVPB Q12 [facility]; Protocol Last Admin: 12/24/18 08:33 Dose: 100 mls/hr Meropenem 1 gm/ Sodium (Chloride) 100 mls @ 100 mls/hr IVPB Q8 [facility]; Protocol Last Admin: 12/24/18 17:10 Dose: 100 mls/hr Vancomycin HCl 1 gm/ Sodium (Chloride) 250 mls @ 166.667 mls/hr IVPB Q12 [facility]; Protocol Last Admin: 12/24/18 08:30 Dose: 166.667 mls/hr Diltiazem HCl 125 mg/ Sodium (Chloride) 125 mls @ 7.5 mls/hr IV .[id number] [facility]; Protocol Stop: 12/25/18 05:59 Last Titration: 12/24/18 14:50 Dose: 10 mg/hr, 10 mls/hr Lactic Acid (Lac-Hydrin 12% Lotion (225 G)) 1 applic TOP BID [facility] Last Admin: 12/24/18 17:09 Dose: 1 applic Levalbuterol HCl (Xopenex) 0.63 mg IH RTID [facility] Last Admin: 12/24/18 14:27 Dose: 0.63 mg Promethazine HCl/Dextromethorphan (Phenergan Dm Syrup) 5 ml PO Q6 PRN PRN Reason: Cough and congestion Last Admin: 12/15/18 22:00 Dose: 5 ml - Labs Labs: 12/24/18 07:00 12/24/18 07:00 PT 15.6 Seconds (9.8-13.1) H 12/15/18 10:45 INR 1.4 12/15/18 10:45 APTT 32.2 Seconds (25.6-37.1) 12/15/18 10:45 - Constitutional Appears: Toxic - Head Exam Head Exam: ATRAUMATIC, NORMAL INSPECTION, NORMOCEPHALIC - Eye Exam Eye Exam: EOMI, Normal appearance, PERRL. absent: Conjunctival injection, Nystagmus, Periorbital swelling, Periorbital tenderness, Scleral icterus Pupil Exam: NORMAL ACCOMODATION, PERRL - ENT Exam ENT Exam: Mucous Membranes Dry, Normal Exam. absent: Normal External Ear Exam, Normal Oropharynx, TM's Normal Bilaterally - Neck Exam Neck Exam: Full ROM, Normal Inspection - Respiratory Exam Respiratory Exam: Rhonchi, Wheezes. absent: Accessory Muscle Use, Chest Wall Tenderness, Decreased Breath Sounds, Clear to Ausculation Bilateral, Prolonged Expiratory Phase, Rales, Respiratory Distress, Stridor, NORMAL BREATHING PATTERN - Cardiovascular Exam Cardiovascular Exam: Tachycardia, Irregular Rhythm, +S1, +S2, Murmur. absent: Bradycardia, Clicks, Diastolic murmur, Gallop, REGULAR RHYTHM, JVD, RRR, Rubs, +S4 - GI/Abdominal Exam GI & Abdominal Exam: Soft, Normal Bowel Sounds. absent: Bruit, Distended, Firm, Guarding, Rigid, Tenderness, Diminished Bowel Sounds, Hernia, Hyperactive Bowel Sounds, Hypoactive Bowel Sounds, Organomegaly, Pulsatile Mass, Rebound, Mass - Rectal Exam Rectal Exam: Deferred - Extremities Exam Extremities Exam: Normal Capillary Refill, Pedal Edema. absent: Calf Tenderness, Full ROM, Joint Swelling, Normal Inspection, Tenderness - Back Exam Back Exam: NORMAL INSPECTION. absent: CVA tenderness (L), CVA tenderness (R), Full ROM, muscle spasm, paraspinal tenderness, rash noted, tenderness, vertebral tenderness - Neurological Exam Additional comments: VENTED AND SEDATED - Psychiatric Exam Additional comments: SEDATED - Skin Skin Exam: Dry, Intact, Normal Color, Warm. absent: Abrasion, Cyanosis, Diaphoretic, Erythema, Mottled, Pallor, Pallor, Petechiae, Rash, Urticaria, Vesicles Assessment and Plan (1) Multifocal pneumonia Status: Acute (2) Altered mental status Status: Acute (3) SOB (shortness of breath) Status: Acute (4) Cough Status: Acute (5) Atrial fibrillation with RVR Status: Acute (6) Depression (emotion) Status: Acute (7) Prerenal azotemia Status: Acute (8) Anxiety Status: Acute (9) Edema Status: Acute (10) Hypotension (arterial) Status: Acute (11) Respiratory failure Status: Acute - Assessment and Plan (Free Text) Plan: PT WITH BL INFILTRATES ON CT SCAN DUE TO ASPIRATION. PT WITH INCREASING CR AND LOW BP, I SUSPECT VOLUME DEPLETION DUE TO DIURETICS. WOULD GIVE IVF AND STOP LASIX FOR NOW. CONT CARDIZEM DRIP. CONT ANTIBIOTICS. ECHO IMAGES REMAIN UNCLEAR, CONTRAST NOT USED TO DELINEATE LVEF. THERE IS MOD MR AND TR WITH MILD TO MOD BIATRIAL ENLARGEMENT. WILL CONSIDER SADIQ (TO ASSESS EF AND RO THROMBUS) AND CV IF CURRENT TREATMENT DOES NOT IMPROVE PT. MONITOR UO CLOSELY AND GIVE IVF BOLUSES IF DECREASES OFF LASIX. DW ICU STAFF. 65 MIN TOTAL CARE TIME.
[2018-12-24] MEDS ORDERED: Dexmedetomidine Hydrochloride 400 MCG in Sodium Chloride 0.9% 96 ML IV ONE (21:27)
--- NOTE | 2018-12-24 22:20 | CARD ---
APPROVED REPORT Date of service: 12/24/2018 EXAM: Two-dimensional and M-mode echocardiogram with Doppler and color Doppler. Other Information Quality : FairRhythm : NSR Technically limited study due to Pt on VENT INDICATION Post Intubation evaluation 2D DIMENSIONS IVSd1.15 (0.7-1.1cm)LVDd4.83 (3.9-5.9cm) LVOT Diameter2.33 (1.8-2.4cm)PWd1.02 (0.7-1.1cm) IVSs1.45 (0.8-1.2cm)LVDs3.66 (2.5-4.0cm) FS (%) 24.3 %PWs1.23 (0.8-1.2cm) M-Mode DIMENSIONS Left Atrium (MM)3.15 (2.5-4.0cm)Aortic Root4.18 (2.2-3.7cm) Aortic Cusp Exc.2.18 (1.5-2.0cm) Mitral Valve E/A ratio0.0 TDI E/Lateral E'0.0E/Medial E'0.0 Tricuspid Valve TR Peak [id number] Peak Gr.25mmHg [id number] LEFT VENTRICLE The left ventricle is normal size. There is normal left ventricular wall thickness. The left ventricular systolic function is moderately reduced. The estimated ejection fraction is 35-40% There is moderate global hypokinesis. The left ventricular diastolic function cannot be assessed due to underlying atrial fibrillation. No left ventricle thrombus noted on this study. There is no ventricular septal defect visualized. There is no left ventricular aneurysm. There is no mass noted in the left ventricle. RIGHT VENTRICLE The right ventricle is normal size. There is normal right ventricular wall thickness. The right ventricular systolic function is normal. ATRIA The left atrium is moderately dilated. The right atrium size is normal. The interatrial septum is intact with no evidence for an atrial septal defect. AORTIC VALVE The aortic valve is normal in structure. No aortic regurgitation is present. There is no aortic valvular stenosis. There is no aortic valvular vegetation. MITRAL VALVE The mitral valve is normal in structure. There is no evidence of mitral valve prolapse. There is no mitral valve stenosis. There is mild mitral valve regurgitation noted. TRICUSPID VALVE The tricuspid valve is normal in structure. There is moderate tricuspid valve regurgitation noted. RVSP is calculated at 40 mm Hg. There is no tricuspid valve prolapse or vegetation. There is no tricuspid valve stenosis. PULMONIC VALVE The pulmonary valve is normal in structure. There is no pulmonic valvular regurgitation. There is no pulmonic valvular stenosis. GREAT VESSELS The aortic root is mildly dilated in size. The ascending aorta is normal in size. The pulmonary artery is normal. The IVC is dilated in size and collapses <50% with inspiration. PERICARDIAL EFFUSION There is no pericardial effusion. There is no pleural effusion. <Conclusion> Technically difficult study. The left ventricular systolic function is moderately reduced. The estimated ejection fraction is 35-40%. There is moderate global hypokinesis. The left ventricular diastolic function cannot be assessed due to underlying atrial fibrillation. The left atrium is moderately dilated. There is mild mitral valve regurgitation noted. There is moderate tricuspid valve regurgitation noted. RVSP is calculated at 40 mm Hg. The IVC is dilated in size and collapses <50% with inspiration. The aortic root is mildly dilated in size.
[2018-12-25] MEDS: Meropenem 1 GM in Sodium Chloride 0.9% 100 ML IVPB SCH ×3 (01:29→18:00)
[2018-12-25 05:02] LABS: ABG ALLEN TEST YES; ARTERIAL BLOOD GAS HCO3 30.4 mmol/L (21-28); ARTERIAL BLOOD GAS O2 SAT 99.8 % (95-98); ARTERIAL BLOOD GAS PCO2 49 mm/Hg (35-45); ARTERIAL BLOOD GAS PH 7.43 (7.35-7.45); ARTERIAL BLOOD GAS PO2 134 mm/Hg (80-100)
[2018-12-25 07:37] LABS: INR 1.5; PROTHROMBIN TIME 16.8 Seconds (9.8-13.1)
[2018-12-25 07:38] LABS: BASO % 0.6 % (0.0-2.0); EOS # 0.1 K/uL (0.0-0.7); HEMOGLOBIN 14.1 g/dL (12.0-18.0); LYMPH # 0.3 K/uL (1.0-4.3); LYMPH % 7.9 % (20.0-40.0); MEAN CELL VOLUME 98.3 fl (80.0-94.0); MEAN CORPUSCULAR HEMOGLOBIN 31.9 pg (27.0-31.0); MEAN CORPUSCULAR HGB CONC 32.5 g/dL (33.0-37.0); MONO # 0.4 K/uL (0.0-0.8); MONO % 9.2 % (0.0-10.0); NEUT # 3.5 K/uL (1.8-7.0); NEUT % 80.3 % (50.0-75.0); NRBC % 0.1 % (0.0-0.0); RBC 4.42 Mil/uL (4.40-5.90); RED CELL DISTRIBUTION WIDTH 14.8 % (11.5-14.5); WHITE BLOOD COUNT 4.4 K/uL (4.8-10.8)
[2018-12-25 07:39] LABS: PARTIAL THROMBOPLASTIN TIME 43.1 Seconds (25.6-37.1)
[2018-12-25 07:54] LABS: ALB/GLOB RATIO 0.9 (1.0-2.1); ALBUMIN 2.5 g/dL (3.5-5.0); ALT/SGPT 63 U/L (21-72); AST/SGOT 43 U/L (17-59); BLOOD UREA NITROGEN 44 mg/dl (9-20); CALCIUM 8.1 mg/dL (8.4-10.2); GFR NON-AFRICAN AMERICAN 59
[2018-12-25] MEDS: Levalbuterol 0.63 MG/3 ML Inhal Soln UD IH SCH ×3 (08:23→14:53)
[2018-12-25] MEDS: Acetylcysteine 10% 4 ML IH SCH ×2 (08:23→19:00)
[2018-12-25] MEDS: metroNIDAZOLE 500mg/100ml NS 100 ML IVPB SCH ×2 (08:35→21:05)
[2018-12-25] MEDS: Enoxaparin 120 mg Syringe SC SCH (08:40)
--- NOTE | 2018-12-25 11:10 | CP.CCUPN ---
CCU Subjective - Physician Review Subjective (Free Text): Sedated on low dose Precedex, remains on Cardizem drip, HR 90s, SBP 10-110s, SPo2 100% on 60% oxygen, breathing 12 on AC 12. Fluid balance 2.6L positive. No new temp spikes, temps remain 98F. ROS: No other pertinent negs or positive on 10+ system review obtainable due to sedated status Other PMSFH: All other Nursing and physician documentation reviewed to date; no new pertinent info noted relevant to current medical problems. EXAM- HEENT: no icterus, pupils equal, 3 mm and reactive, no gaze preference, opens eyes briefly to pain. NECK: no visible JVD, supple, carotids equal upstroke bilat/no bruits CHEST: decreased BS bases, no wheezes audible HEART: irregular, distant, tachy S1S2, no murmur audible, no rubs. ABD: soft, no distention, no ascites, no focal tenderness, BS hypoactive EXT: + edema UEs and LEs, no calf tenderness or palpable cords, distal pulses intact and symmetrical NEURO: withdraws to pain stimuli SKIN: no rashes LABS: WBC= 4.4 HGB= 14.1 PLTs = 165K Na= 139 K= 3.7 Cl= 104 HCO3= 31 BUN/Cr= 44/1.2 BS= 130 7.43/49/134 ABG CXR: (my interp)- Increase in R sided infiltrates, Left effusion and LLL interstitial changes persist. IMPRESSION / MAJOR PROBLEMS NOW: 1. Acute hypoxemic resp failure 2 MultiLobar Pneumonia, possible Aspiration event; and Superimposed Left CHF 2. Rapid A Fib 3. Azotemia / Dehydration 4. Metabolic Encephalopathy PLAN: 1. MV support with ongoing attempts to lower FiO2 , try 50% today. Pulm eval, may need FOB/BAL if CXR does not improve. 2. Empiric abx coverage, no organisms able to be isolated yet. 3. Diuretics reduced, remains on Cardizem, or otherwise as directed by Cardiology. 4. Venous Dopplers of the legs negative for DVT. 5. See orders for other supportive care. Time spent with this patient did not overlap with any other provider's medical or critical care time. Additionally the code selected for the services rendered in this note includes the time spent: talking to the patients family, associated physicians and reviewing hospital data/results not listed here which extended to a total of 40 minutes of critical care.
--- NOTE | 2018-12-25 11:37 | RAD ---
Date of service: 12/25/2018 PROCEDURE: CHEST RADIOGRAPH, 1 VIEW HISTORY: Intubated COMPARISON: Chest radiograph dated 12/24/2018. FINDINGS: LUNGS: Diffuse bilateral pulmonary infiltrates. PLEURA: Small bilateral pleural effusions. No pneumothorax. CARDIOVASCULAR: Aortic atherosclerotic calcifications. Cardiomediastinal silhouette stably enlarged. OSSEOUS STRUCTURES: Changed. VISUALIZED UPPER ABDOMEN: Normal. OTHER FINDINGS: Endotracheal and enteric tubes, unchanged IMPRESSION: No significant change in diffuse bilateral pulmonary infiltrates are small bilateral pleural effusions.
--- NOTE | 2018-12-25 11:51 | CP.PCM.PN ---
Subjective - Date & Time of Evaluation Date of Evaluation: 12/25/18 Time of Evaluation: 11:51 - Subjective Subjective: ID Note- Patietn seen and examined today in ICU. remains on the vent. is sedated. Objective - Vital Signs/Intake and Output Vital Signs (last 24 hours): Temp Pulse Resp BP Pulse Ox 98.4 F 101 H 9 L 112/72 100 12/25/18 11:00 12/25/18 11:00 12/25/18 11:00 12/25/18 11:00 12/25/18 11:00 Intake and Output: 12/25/18 12/25/18 06:59 18:59 Intake Total 1855.0 690 Output Total 550 260 Balance 1305.0 430 - Medications Medications: Current Medications Acetaminophen (Tylenol 325mg Tab) 650 mg PO Q6 PRN PRN Reason: Pain, Mild (1-3) Last Admin: 12/24/18 20:36 Dose: 650 mg Acetylcysteine (Mucomyst 10% 4ml) 2 ml IH RBID [facility] Last Admin: 12/25/18 08:23 Dose: 2 ml Albuterol/Ipratropium (Duoneb 3 Mg/0.5 Mg (3 Ml) Ud) 3 ml INH RQID [facility] Last Admin: 12/24/18 19:11 Dose: 3 ml Alprazolam (Xanax) 0.5 mg PO Q12 [facility] Stop: 12/27/18 10:31 Last Admin: 12/23/18 10:34 Dose: 0.5 mg Docusate Sodium (Colace) 100 mg PO DAILY [facility] Last Admin: 12/23/18 10:29 Dose: 100 mg Famotidine (Pepcid) 20 mg IVP Q12 [facility] Last Admin: 12/25/18 08:38 Dose: 20 mg Furosemide (Lasix) 20 mg IVP DAILY [facility] Last Admin: 12/25/18 08:46 Dose: 20 mg Metronidazole (Flagyl 500mg/100ml Ns) 100 mls @ 100 mls/hr IVPB Q12 [facility]; Protocol Last Admin: 12/25/18 08:35 Dose: 100 mls/hr Meropenem 1 gm/ Sodium (Chloride) 100 mls @ 100 mls/hr IVPB Q8 [facility]; Protocol Last Admin: 12/25/18 08:42 Dose: 100 mls/hr Vancomycin HCl 1 gm/ Sodium (Chloride) 250 mls @ 166.667 mls/hr IVPB Q12 [facility]; Protocol Last Admin: 12/25/18 08:41 Dose: 166.667 mls/hr Lactic Acid (Lac-Hydrin 12% Lotion (225 G)) 1 applic TOP BID [facility] Last Admin: 12/25/18 08:39 Dose: 1 applic Levalbuterol HCl (Xopenex) 0.63 mg IH RTID [facility] Last Admin: 12/25/18 08:23 Dose: 0.63 mg Promethazine HCl/Dextromethorphan (Phenergan Dm Syrup) 5 ml PO Q6 PRN PRN Reason: Cough and congestion Last Admin: 12/15/18 22:00 Dose: 5 ml - Labs Labs: - Additional Findings Additional findings: - Constitutional Appears: Agitated - Head Exam Head Exam: ATRAUMATIC - ENT Exam Additional comments: ET and OGT in place - Respiratory Exam Additional comments: on the vent decreased breath sounds at right base - Cardiovascular Exam Cardiovascular Exam: Tachycardia, +S1, +S2 - GI/Abdominal Exam GI & Abdominal Exam: Soft, Normal Bowel Sounds Additional comments: NT, ND - Extremities Exam Extremities Exam: Normal Inspection - Neurological Exam Neurological Exam: sedated Laboratory Results - last 72 hr 12/22/18 12/22/18 12/22/18 16:49 16:49 17:25 WBC RBC Hgb Hct MCV MCH MCHC RDW Plt Count MPV Neut % (Auto) Lymph % (Auto) [place] % (Auto) Eos % (Auto) Baso % (Auto) Neut # (Auto) Lymph # (Auto) [place] # (Auto) Eos # (Auto) Baso # (Auto) Neutrophils % (Manual) Lymphocytes % (Manual) Monocytes % (Manual) Platelet Estimate Poikilocytosis (manual Anisocytosis (manual) Ovalocytes ESR PT INR APTT pCO2 pO2 HCO3 ABG pH ABG Total CO2 ABG O2 Saturation ABG O2 Content ABG Base Excess ABG Hemoglobin ABG Carboxyhemoglobin POC ABG HHb (Measured) ABG Methemoglobin ABG O2 Capacity [place] Test ABG Potassium A-a O2 Difference Hgb O2 Saturation Glucose Lactate Vent Mode Mechanical Rate FiO2 Tidal Volume PEEP Crit Value Called To Crit Value Called By Crit Value Read Back Blood Gas Notified Time Sodium Potassium Chloride Carbon Dioxide Anion Gap BUN Creatinine Est GFR ( Amer) Est GFR (Non-Af Amer) POC Glucose (mg/dL) Random Glucose Lactic Acid Calcium Phosphorus Magnesium Total Bilirubin Direct Bilirubin AST ALT Alkaline Phosphatase Troponin I NT-Pro-B Natriuret Pep Total Protein Albumin Globulin Albumin/Globulin Ratio Arterial Blood Potassium Urine Color Urine Clarity Urine pH Ur Specific [place] Urine Protein Urine Glucose (UA) Urine Ketones Urine Blood Urine Nitrate Urine Bilirubin Urine Urobilinogen Ur Leukocyte Esterase Urine RBC (Auto) Urine Microscopic WBC Vancomycin Trough Cold Agglutinins Negative Hepatitis A IgM Ab Negative Hep Bs Antigen Negative Hep B Core IgM Ab Negative Hepatitis C Antibody Negative Ur L.pneumophila Ag Negative Mycoplasma pneumon IgM Negative 12/22/18 12/23/18 12/23/18 22:35 04:35 04:35 WBC 6.1 RBC 4.04 L Hgb 13.1 Hct 39.3 MCV 97.3 H MCH 32.5 H MCHC 33.4 RDW 14.6 H Plt Count 228 MPV Neut % (Auto) Lymph % (Auto) [place] % (Auto) Eos % (Auto) Baso % (Auto) Neut # (Auto) Lymph # (Auto) [place] # (Auto) Eos # (Auto) Baso # (Auto) Neutrophils % (Manual) Lymphocytes % (Manual) Monocytes % (Manual) Platelet Estimate Poikilocytosis (manual Anisocytosis (manual) Ovalocytes ESR 62 H PT INR APTT pCO2 pO2 HCO3 ABG pH ABG Total CO2 ABG O2 Saturation ABG O2 Content ABG Base Excess ABG Hemoglobin ABG Carboxyhemoglobin POC ABG HHb (Measured) ABG Methemoglobin ABG O2 Capacity [place] Test ABG Potassium A-a O2 Difference Hgb O2 Saturation Glucose Lactate Vent Mode Mechanical Rate FiO2 Tidal Volume PEEP Crit Value Called To Crit Value Called By Crit Value Read Back Blood Gas Notified Time Sodium 138 Potassium 3.6 Chloride 100 Carbon Dioxide 31 H Anion Gap 11 BUN 34 H Creatinine 1.1 Est GFR ( Amer) > 60 Est GFR (Non-Af Amer) > 60 POC Glucose (mg/dL) Random Glucose 109 Lactic Acid Calcium 8.1 L Phosphorus Magnesium 1.9 Total Bilirubin 1.0 Direct Bilirubin 0.6 H AST 56 ALT 90 H Alkaline Phosphatase 146 H Troponin I NT-Pro-B Natriuret Pep Total Protein 6.4 Albumin 3.1 L Globulin 3.3 Albumin/Globulin Ratio 0.9 L Arterial Blood Potassium Urine Color Yellow Urine Clarity Clear Urine pH 6.0 Ur Specific [place] 1.010 Urine Protein Negative Urine Glucose (UA) Neg Urine Ketones Negative Urine Blood Negative Urine Nitrate Negative Urine Bilirubin Negative Urine Urobilinogen 0.2-1.0 Ur Leukocyte Esterase Neg Urine RBC (Auto) 2 Urine Microscopic WBC 1 Vancomycin Trough Cold Agglutinins Hepatitis A IgM Ab Hep Bs Antigen Hep B Core IgM Ab Hepatitis C Antibody Ur L.pneumophila Ag Mycoplasma pneumon IgM 12/23/18 12/23/18 12/23/18 15:22 15:27 17:10 WBC 9.3 D RBC 3.95 L Hgb 12.7 Hct 38.6 MCV 97.5 H MCH 32.0 H MCHC 32.8 L RDW 15.0 H Plt Count 251 MPV Neut % (Auto) Lymph % (Auto) [place] % (Auto) Eos % (Auto) Baso % (Auto) Neut # (Auto) Lymph # (Auto) [place] # (Auto) Eos # (Auto) Baso # (Auto) Neutrophils % (Manual) Lymphocytes % (Manual) Monocytes % (Manual) Platelet Estimate Poikilocytosis (manual Anisocytosis (manual) Ovalocytes ESR PT INR APTT pCO2 91 H* pO2 49 L HCO3 26.0 ABG pH 7.18 L* ABG Total CO2 36.8 H ABG O2 Saturation 80.2 L ABG O2 Content 16.4 ABG Base Excess 2.2 ABG Hemoglobin 15.0 ABG Carboxyhemoglobin 2.0 H POC ABG HHb (Measured) 19.2 H ABG Methemoglobin 1.1 ABG O2 Capacity 20.4 [place] Test Yes ABG Potassium A-a O2 Difference 550.0 Hgb O2 Saturation 77.7 L Glucose Lactate Vent Mode Mechanical Rate FiO2 100.0 Tidal Volume PEEP Crit Value Called To yury Olson Crit Value Called By 22 Crit Value Read Back Y Blood Gas Notified Time 1532 Sodium Potassium Chloride Carbon Dioxide Anion Gap BUN Creatinine Est GFR ( Amer) Est GFR (Non-Af Amer) POC Glucose (mg/dL) 209 H Random Glucose Lactic Acid Calcium Phosphorus Magnesium Total Bilirubin Direct Bilirubin AST ALT Alkaline Phosphatase Troponin I NT-Pro-B Natriuret Pep Total Protein Albumin Globulin Albumin/Globulin Ratio Arterial Blood Potassium Urine Color Urine Clarity Urine pH Ur Specific [place] Urine Protein Urine Glucose (UA) Urine Ketones Urine Blood Urine Nitrate Urine Bilirubin Urine Urobilinogen Ur Leukocyte Esterase Urine RBC (Auto) Urine Microscopic WBC Vancomycin Trough Cold Agglutinins Hepatitis A IgM Ab Hep Bs Antigen Hep B Core IgM Ab Hepatitis C Antibody Ur L.pneumophila Ag Mycoplasma pneumon IgM 12/23/18 12/23/18 12/23/18 17:10 17:10 17:20 WBC RBC Hgb Hct MCV MCH MCHC RDW Plt Count MPV Neut % (Auto) Lymph % (Auto) [place] % (Auto) Eos % (Auto) Baso % (Auto) Neut # (Auto) Lymph # (Auto) [place] # (Auto) Eos # (Auto) Baso # (Auto) Neutrophils % (Manual) Lymphocytes % (Manual) Monocytes % (Manual) Platelet Estimate Poikilocytosis (manual Anisocytosis (manual) Ovalocytes ESR PT INR APTT pCO2 56 H pO2 88 HCO3 29.2 H ABG pH 7.37 ABG Total CO2 34.1 H ABG O2 Saturation 98.6 H ABG O2 Content ABG Base Excess 5.5 H ABG Hemoglobin ABG Carboxyhemoglobin POC ABG HHb (Measured) ABG Methemoglobin ABG O2 Capacity [place] Test Yes ABG Potassium 3.6 A-a O2 Difference 555.0 Hgb O2 Saturation Glucose 169 H Lactate 1.0 Vent Mode A/c Mechanical Rate 12 FiO2 100.0 Tidal Volume 500 PEEP Crit Value Called To Crit Value Called By Crit Value Read Back Blood Gas Notified Time Sodium 139 140.0 Potassium 3.9 Chloride 101 103.0 Carbon Dioxide 32 H Anion Gap 10 BUN 35 H Creatinine 1.2 Est GFR ( Amer) > 60 Est GFR (Non-Af Amer) 59 POC Glucose (mg/dL) Random Glucose 179 H Lactic Acid 1.4 Calcium 8.6 Phosphorus Magnesium Total Bilirubin Direct Bilirubin AST ALT Alkaline Phosphatase Troponin I NT-Pro-B Natriuret Pep Total Protein Albumin Globulin Albumin/Globulin Ratio Arterial Blood Potassium 3.6 Urine Color Urine Clarity Urine pH Ur Specific [place] Urine Protein Urine Glucose (UA) Urine Ketones Urine Blood Urine Nitrate Urine Bilirubin Urine Urobilinogen Ur Leukocyte Esterase Urine RBC (Auto) Urine Microscopic WBC Vancomycin Trough Cold Agglutinins Hepatitis A IgM Ab Hep Bs Antigen Hep B Core IgM Ab Hepatitis C Antibody Ur L.pneumophila Ag Mycoplasma pneumon IgM 12/23/18 12/24/18 12/24/18 20:45 05:11 07:00 WBC 8.1 RBC 3.67 L Hgb 11.9 L Hct 36.3 MCV 98.7 H MCH 32.5 H MCHC 32.9 L RDW 14.9 H Plt Count 221 MPV 8.1 Neut % (Auto) 85.9 H Lymph % (Auto) 5.9 L [place] % (Auto) 7.9 Eos % (Auto) 0.0 Baso % (Auto) 0.3 Neut # (Auto) 6.9 Lymph # (Auto) 0.5 L [place] # (Auto) 0.6 Eos # (Auto) 0.0 Baso # (Auto) 0.0 Neutrophils % (Manual) 95 H Lymphocytes % (Manual) 1 L Monocytes % (Manual) 4 Platelet Estimate Normal Poikilocytosis (manual Slight Anisocytosis (manual) Slight Ovalocytes Slight ESR PT INR APTT pCO2 38 pO2 194 H HCO3 29.7 H ABG pH 7.50 H ABG Total CO2 30.8 H ABG O2 Saturation 100.3 H ABG O2 Content ABG Base Excess 6.1 H ABG Hemoglobin ABG Carboxyhemoglobin POC ABG HHb (Measured) ABG Methemoglobin ABG O2 Capacity [place] Test Yes ABG Potassium 3.9 A-a O2 Difference 400.0 Hgb O2 Saturation Glucose 131 H Lactate 1.2 Vent Mode A/c Mechanical Rate 12 FiO2 90.0 Tidal Volume 500 PEEP 5 Crit Value Called To Crit Value Called By Crit Value Read Back Blood Gas Notified Time Sodium 137.0 Potassium Chloride 108.0 H Carbon Dioxide Anion Gap BUN Creatinine Est GFR ( Amer) Est GFR (Non-Af Amer) POC Glucose (mg/dL) Random Glucose Lactic Acid Calcium Phosphorus Magnesium Total Bilirubin Direct Bilirubin AST ALT Alkaline Phosphatase Troponin I 0.0300 NT-Pro-B Natriuret Pep Total Protein Albumin Globulin Albumin/Globulin Ratio Arterial Blood Potassium 3.9 Urine Color Urine Clarity Urine pH Ur Specific [place] Urine Protein Urine Glucose (UA) Urine Ketones Urine Blood Urine Nitrate Urine Bilirubin Urine Urobilinogen Ur Leukocyte Esterase Urine RBC (Auto) Urine Microscopic WBC Vancomycin Trough Cold Agglutinins Hepatitis A IgM Ab Hep Bs Antigen Hep B Core IgM Ab Hepatitis C Antibody Ur L.pneumophila Ag Mycoplasma pneumon IgM 12/24/18 12/24/18 12/25/18 07:00 11:02 04:39 WBC RBC Hgb Hct MCV MCH MCHC RDW Plt Count MPV Neut % (Auto) Lymph % (Auto) [place] % (Auto) Eos % (Auto) Baso % (Auto) Neut # (Auto) Lymph # (Auto) [place] # (Auto) Eos # (Auto) Baso # (Auto) Neutrophils % (Manual) Lymphocytes % (Manual) Monocytes % (Manual) Platelet Estimate Poikilocytosis (manual Anisocytosis (manual) Ovalocytes ESR PT INR APTT pCO2 49 H pO2 134 H HCO3 30.4 H ABG pH 7.43 ABG Total CO2 34.0 H ABG O2 Saturation 99.8 H ABG O2 Content ABG Base Excess 6.9 H ABG Hemoglobin ABG Carboxyhemoglobin POC ABG HHb (Measured) ABG Methemoglobin ABG O2 Capacity [place] Test Yes ABG Potassium 3.7 A-a O2 Difference 233.0 Hgb O2 Saturation Glucose 140 H Lactate 0.8 Vent Mode A/c Mechanical Rate 12 FiO2 60.0 Tidal Volume 500 PEEP 5 Crit Value Called To Crit Value Called By Crit Value Read Back Blood Gas Notified Time Sodium 139 139.0 Potassium 3.9 Chloride 103 106.0 Carbon Dioxide 31 H Anion Gap 9 L BUN 38 H Creatinine 1.2 Est GFR ( Amer) > 60 Est GFR (Non-Af Amer) 59 POC Glucose (mg/dL) Random Glucose 121 H Lactic Acid Calcium 8.4 Phosphorus 4.7 H Magnesium 2.0 Total Bilirubin 0.9 Direct Bilirubin AST 46 ALT 80 H Alkaline Phosphatase 127 H Troponin I NT-Pro-B Natriuret Pep 3380 H Total Protein 5.7 L Albumin 2.7 L Globulin 2.9 Albumin/Globulin Ratio 0.9 L Arterial Blood Potassium 3.7 Urine Color Urine Clarity Urine pH Ur Specific [place] Urine Protein Urine Glucose (UA) Urine Ketones Urine Blood Urine Nitrate Urine Bilirubin Urine Urobilinogen Ur Leukocyte Esterase Urine RBC (Auto) Urine Microscopic WBC Vancomycin Trough Cold Agglutinins Hepatitis A IgM Ab Hep Bs Antigen Hep B Core IgM Ab Hepatitis C Antibody Ur L.pneumophila Ag Mycoplasma pneumon IgM 12/25/18 12/25/18 12/25/18 05:40 05:40 05:40 WBC 4.4 L RBC 4.42 Hgb 14.1 D Hct 43.4 MCV 98.3 H MCH 31.9 H MCHC 32.5 L RDW 14.8 H Plt Count 165 MPV 8.0 Neut % (Auto) 80.3 H Lymph % (Auto) 7.9 L [place] % (Auto) 9.2 Eos % (Auto) 2.0 Baso % (Auto) 0.6 Neut # (Auto) 3.5 Lymph # (Auto) 0.3 L [place] # (Auto) 0.4 Eos # (Auto) 0.1 Baso # (Auto) 0.0 Neutrophils % (Manual) Lymphocytes % (Manual) Monocytes % (Manual) Platelet Estimate Poikilocytosis (manual Anisocytosis (manual) Ovalocytes ESR PT INR APTT pCO2 pO2 HCO3 ABG pH ABG Total CO2 ABG O2 Saturation ABG O2 Content ABG Base Excess ABG Hemoglobin ABG Carboxyhemoglobin POC ABG HHb (Measured) ABG Methemoglobin ABG O2 Capacity [place] Test ABG Potassium A-a O2 Difference Hgb O2 Saturation Glucose Lactate Vent Mode Mechanical Rate FiO2 Tidal Volume PEEP Crit Value Called To Crit Value Called By Crit Value Read Back Blood Gas Notified Time Sodium 139 Potassium 3.7 Chloride 104 Carbon Dioxide 31 H Anion Gap 8 L BUN 44 H Creatinine 1.2 Est GFR ( Amer) > 60 Est GFR (Non-Af Amer) 59 POC Glucose (mg/dL) Random Glucose 130 H Lactic Acid Calcium 8.1 L Phosphorus 3.5 Magnesium 2.3 Total Bilirubin 0.5 Direct Bilirubin AST 43 ALT 63 Alkaline Phosphatase 145 H Troponin I NT-Pro-B Natriuret Pep Total Protein 5.4 L Albumin 2.5 L Globulin 2.9 Albumin/Globulin Ratio 0.9 L Arterial Blood Potassium Urine Color Urine Clarity Urine pH Ur Specific [place] Urine Protein Urine Glucose (UA) Urine Ketones Urine Blood Urine Nitrate Urine Bilirubin Urine Urobilinogen Ur Leukocyte Esterase Urine RBC (Auto) Urine Microscopic WBC Vancomycin Trough 12.9 H Cold Agglutinins Hepatitis A IgM Ab Hep Bs Antigen Hep B Core IgM Ab Hepatitis C Antibody Ur L.pneumophila Ag Mycoplasma pneumon IgM 12/25/18 05:40 WBC RBC Hgb Hct MCV MCH MCHC RDW Plt Count MPV Neut % (Auto) Lymph % (Auto) [place] % (Auto) Eos % (Auto) Baso % (Auto) Neut # (Auto) Lymph # (Auto) [place] # (Auto) Eos # (Auto) Baso # (Auto) Neutrophils % (Manual) Lymphocytes % (Manual) Monocytes % (Manual) Platelet Estimate Poikilocytosis (manual Anisocytosis (manual) Ovalocytes ESR PT 16.8 H INR 1.5 APTT 43.1 H pCO2 pO2 HCO3 ABG pH ABG Total CO2 ABG O2 Saturation ABG O2 Content ABG Base Excess ABG Hemoglobin ABG Carboxyhemoglobin POC ABG HHb (Measured) ABG Methemoglobin ABG O2 Capacity [place] Test ABG Potassium A-a O2 Difference Hgb O2 Saturation Glucose Lactate Vent Mode Mechanical Rate FiO2 Tidal Volume PEEP Crit Value Called To Crit Value Called By Crit Value Read Back Blood Gas Notified Time Sodium Potassium Chloride Carbon Dioxide Anion Gap BUN Creatinine Est GFR ( Amer) Est GFR (Non-Af Amer) POC Glucose (mg/dL) Random Glucose Lactic Acid Calcium Phosphorus Magnesium Total Bilirubin Direct Bilirubin AST ALT Alkaline Phosphatase Troponin I NT-Pro-B Natriuret Pep Total Protein Albumin Globulin Albumin/Globulin Ratio Arterial Blood Potassium Urine Color Urine Clarity Urine pH Ur Specific [place] Urine Protein Urine Glucose (UA) Urine Ketones Urine Blood Urine Nitrate Urine Bilirubin Urine Urobilinogen Ur Leukocyte Esterase Urine RBC (Auto) Urine Microscopic WBC Vancomycin Trough Cold Agglutinins Hepatitis A IgM Ab Hep Bs Antigen Hep B Core IgM Ab Hepatitis C Antibody Ur L.pneumophila Ag Mycoplasma pneumon IgM Microbiology 12/21/18 17:25 Blood-Venous Blood Culture - Preliminary NO GROWTH AFTER 3 DAYS 12/21/18 17:20 Blood-Venous Blood Culture - Preliminary NO GROWTH AFTER 3 DAYS 12/22/18 16:49 Blood-Venous Blood Culture - Preliminary NO GROWTH AFTER 48 HOURS 12/22/18 07:32 Urine,Clean Catch Urine Culture - Final No Growth (<1,000 CFU/ML) 12/23/18 15:30 Nose MRSA Culture (Admit) - Final MRSA NOT DETECTED 12/23/18 17:10 Trachasp Gram Stain - Final Assessment and Plan (1) Atrial fibrillation with RVR Status: Acute (2) Altered mental status Status: Acute (3) Pneumonia Status: Acute (4) Multifocal pneumonia Status: Acute - Assessment and Plan (Free Text) Assessment: A/P- 73 year old male with a.fib and now found to have altered mental status and Right sided pneumonia , developed hypercapneic resp failure yesterday afternoon , s/p intubation and transferred to ICU. Intubated aspiration pneumonia of the right lung , multifocal pneumonia afebrile normal wbc count Blood cx- neg x 3 trach asp cx- pending hepatitis panel- neg urine legionella AG- neg mycoplasma IGM- negative PLan- continue with IV meropnem day #3 continue with IV vancomyicn day #3 keep vanco trough <15. can continue the metronidazole day #4 for anaerobic coverage as well. all labs and imaging and chart notes reviewed. Critical care time spent 40 minutes.
[2018-12-25] MEDS ORDERED: Dexmedetomidine Hydrochloride 400 MCG in Sodium Chloride 0.9% 96 ML IV ONE (12:09)
[2018-12-25 13:11] LABS: COLD AGGLUTININ NEGATIVE (NEGATIVE)
[2018-12-25] MEDS: Albuterol-Ipratrop 3 mg / 0.5 (3 ml) UD INH SCH ×2 (13:32→15:18)
[2018-12-25] MEDS: Levalbuterol 1.25 MG/3 ML Inhal Soln UD INH SCH (16:20)
--- NOTE | 2018-12-25 16:40 | CP.PCM.PN ---
Subjective - Date & Time of Evaluation Date of Evaluation: 12/25/18 Time of Evaluation: 13:20 - Subjective Subjective: Pulmonary consult. Pt on mechanical ventilation, increased cough. Objective - Vital Signs/Intake and Output Vital Signs (last 24 hours): Temp Pulse Resp BP Pulse Ox 98.6 F 108 H 10 L 110/70 100 12/25/18 16:00 12/25/18 16:00 12/25/18 16:00 12/25/18 16:00 12/25/18 16:00 Intake and Output: 12/25/18 12/25/18 06:59 18:59 Intake Total 1855.0 1350 Output Total 550 760 Balance 1305.0 590 - Medications Medications: Current Medications Acetaminophen (Tylenol 325mg Tab) 650 mg PO Q6 PRN PRN Reason: Pain, Mild (1-3) Last Admin: 12/24/18 20:36 Dose: 650 mg Acetylcysteine (Mucomyst 10% 4ml) 2 ml IH RBID [facility] Last Admin: 12/25/18 08:23 Dose: 2 ml Alprazolam (Xanax) 0.5 mg PO Q12 [facility] Stop: 12/27/18 10:31 Last Admin: 12/23/18 10:34 Dose: 0.5 mg Docusate Sodium (Colace) 100 mg PO DAILY [facility] Last Admin: 12/23/18 10:29 Dose: 100 mg Famotidine (Pepcid) 20 mg IVP Q12 [facility] Last Admin: 12/25/18 08:38 Dose: 20 mg Furosemide (Lasix) 20 mg IVP DAILY [facility] Last Admin: 12/25/18 08:46 Dose: 20 mg Metronidazole (Flagyl 500mg/100ml Ns) 100 mls @ 100 mls/hr IVPB Q12 [facility]; Protocol Last Admin: 12/25/18 08:35 Dose: 100 mls/hr Meropenem 1 gm/ Sodium (Chloride) 100 mls @ 100 mls/hr IVPB Q8 [facility]; Protocol Last Admin: 12/25/18 08:42 Dose: 100 mls/hr Vancomycin HCl 1 gm/ Sodium (Chloride) 250 mls @ 166.667 mls/hr IVPB Q12 [facility]; Protocol Last Admin: 12/25/18 08:41 Dose: 166.667 mls/hr Diltiazem HCl 125 mg/ Sodium (Chloride) 125 mls @ 10 mls/hr IV .[id number] ONE; Protocol Stop: 12/26/18 00:38 Last Admin: 12/25/18 12:31 Dose: 10 mg/hr, 10 mls/hr Dexmedetomidine HCl 400 mcg/ (Sodium Chloride) 100 mls @ 5.47 mls/hr IV .[id number] [facility]; Protocol Stop: 12/26/18 06:25 Ipratropium [place] (Atrovent) 0.5 mg IH RQ6 [facility] Lactic Acid (Lac-Hydrin 12% Lotion (225 G)) 1 applic TOP BID [facility] Last Admin: 12/25/18 08:39 Dose: 1 applic Levalbuterol HCl (Xopenex) 1.25 mg INH RQ8 [facility] Last Admin: 12/25/18 16:20 Dose: Not Given Promethazine HCl/Dextromethorphan (Phenergan Dm Syrup) 5 ml PO Q6 PRN PRN Reason: Cough and congestion Last Admin: 12/15/18 22:00 Dose: 5 ml - Labs Labs: 12/25/18 05:40 12/25/18 05:40 PT 16.8 Seconds (9.8-13.1) H 12/25/18 05:40 INR 1.5 12/25/18 05:40 APTT 43.1 Seconds (25.6-37.1) H 12/25/18 05:40 - Constitutional Appears: No Acute Distress, Other (Sedated) - Head Exam Head Exam: NORMAL INSPECTION - Eye Exam Eye Exam: PERRL - ENT Exam Additional comments: Intubated, OGT - Neck Exam Neck Exam: Normal Inspection - Respiratory Exam Respiratory Exam: Decreased Breath Sounds (R bases), Rhonchi - Cardiovascular Exam Cardiovascular Exam: Tachycardia, Irregular Rhythm, Murmur - GI/Abdominal Exam GI & Abdominal Exam: Soft, Normal Bowel Sounds - Exam Additional comments: Cifuentes cath - Extremities Exam Additional comments: 2+ non pitting edema BLE - Back Exam Back Exam: NORMAL INSPECTION - Neurological Exam Additional comments: Sedated, intubated. - Psychiatric Exam Additional comments: Sedated - Skin Skin Exam: Warm Assessment and Plan (1) Aspiration pneumonia of right lung Status: Acute (2) Multifocal pneumonia Status: Acute (3) Pleural effusion, bilateral Status: Acute (4) Respiratory failure Status: Acute (5) COPD (chronic obstructive pulmonary disease) Status: Chronic (6) Atrial fibrillation with RVR Status: Acute - Assessment and Plan (Free Text) Plan: Continue ventilatory support, continue with Mucomyst, Merren., Vanco and rest of Tx. Critical care time: 32 min.
[2018-12-25] MEDS: Ipratropium 0.02% Inhal Soln (0.5 mg/2.5 ml) UD IH SCH (19:00)
--- NOTE | 2018-12-25 19:49 | CP.PCM.PN ---
Subjective - Date & Time of Evaluation Date of Evaluation: 12/25/18 Time of Evaluation: 19:49 - Subjective Subjective: PT SEEN AND EXAMINED IN ICU. HE IS ALTERED AND INTUBATED HOWEVER AWAKE (NOT SEDATED). bp stable, hr 100-110. off pressors CURRENTLY. Objective - Vital Signs/Intake and Output Vital Signs (last 24 hours): Temp Pulse Resp BP Pulse Ox 98.6 F 114 H 13 130/77 100 12/25/18 18:00 12/25/18 18:00 12/25/18 18:00 12/25/18 18:00 12/25/18 18:00 Intake and Output: 12/25/18 12/26/18 18:59 06:59 Intake Total 1870 Output Total 800 Balance 1070 - Medications Medications: Current Medications Acetaminophen (Tylenol 325mg Tab) 650 mg PO Q6 PRN PRN Reason: Pain, Mild (1-3) Last Admin: 12/24/18 20:36 Dose: 650 mg Acetylcysteine (Mucomyst 10% 4ml) 2 ml IH RBID [facility] Last Admin: 12/25/18 19:00 Dose: 2 ml Alprazolam (Xanax) 0.5 mg PO Q12 NELLI Stop: 12/27/18 10:31 Last Admin: 12/23/18 10:34 Dose: 0.5 mg Docusate Sodium (Colace) 100 mg PO DAILY [facility] Last Admin: 12/23/18 10:29 Dose: 100 mg Famotidine (Pepcid) 20 mg IVP Q12 NELLI Last Admin: 12/25/18 08:38 Dose: 20 mg Furosemide (Lasix) 20 mg IVP DAILY [facility] Last Admin: 12/25/18 08:46 Dose: 20 mg Metronidazole (Flagyl 500mg/100ml Ns) 100 mls @ 100 mls/hr IVPB Q12 NELLI; Protocol Last Admin: 12/25/18 08:35 Dose: 100 mls/hr Meropenem 1 gm/ Sodium (Chloride) 100 mls @ 100 mls/hr IVPB Q8 NELLI; Protocol Last Admin: 12/25/18 18:00 Dose: 100 mls/hr Vancomycin HCl 1 gm/ Sodium (Chloride) 250 mls @ 166.667 mls/hr IVPB Q12 [facility]; Protocol Last Admin: 12/25/18 08:41 Dose: 166.667 mls/hr Diltiazem HCl 125 mg/ Sodium (Chloride) 125 mls @ 10 mls/hr IV .[id number] ONE; Protocol Stop: 12/26/18 00:38 Last Admin: 12/25/18 12:31 Dose: 10 mg/hr, 10 mls/hr Dexmedetomidine HCl 400 mcg/ (Sodium Chloride) 100 mls @ 5.47 mls/hr IV .[id number] ONE; Protocol Stop: 12/26/18 06:25 Last Admin: 12/25/18 18:04 Dose: 0.2 mcg/kg/hr, 5.47 mls/hr Ipratropium [place] (Atrovent) 0.5 mg IH RQ6 NELLI Last Admin: 12/25/18 19:00 Dose: 0.5 mg Lactic Acid (Lac-Hydrin 12% Lotion (225 G)) 1 applic TOP BID NELLI Last Admin: 12/25/18 17:05 Dose: 1 applic Levalbuterol HCl (Xopenex) 1.25 mg INH RQ8 NELLI Last Admin: 12/25/18 16:20 Dose: Not Given Promethazine HCl/Dextromethorphan (Phenergan Dm Syrup) 5 ml PO Q6 PRN PRN Reason: Cough and congestion Last Admin: 12/15/18 22:00 Dose: 5 ml - Labs Labs: 12/25/18 05:40 12/25/18 05:40 PT 16.8 Seconds (9.8-13.1) H 12/25/18 05:40 INR 1.5 12/25/18 05:40 APTT 43.1 Seconds (25.6-37.1) H 12/25/18 05:40 - Constitutional Appears: Toxic - Head Exam Head Exam: ATRAUMATIC, NORMAL INSPECTION, NORMOCEPHALIC - Eye Exam Eye Exam: EOMI, Normal appearance, PERRL. absent: Conjunctival injection, Nystagmus, Periorbital swelling, Periorbital tenderness, Scleral icterus Pupil Exam: NORMAL ACCOMODATION, PERRL - ENT Exam ENT Exam: Mucous Membranes Dry. absent: Mucous Membranes Moist, Normal Exam, Normal External Ear Exam, Normal Oropharynx, TM's Normal Bilaterally - Neck Exam Neck Exam: Full ROM, Normal Inspection. absent: Lymphadenopathy, Meningismus, Tenderness, Thyromegaly - Respiratory Exam Respiratory Exam: Rhonchi, Wheezes. absent: Accessory Muscle Use, Chest Wall Te nderness, Decreased Breath Sounds, Clear to Ausculation Bilateral, Prolonged Expiratory Phase, Rales, Respiratory Distress, Stridor, NORMAL BREATHING PATTERN - Cardiovascular Exam Cardiovascular Exam: Tachycardia, Irregular Rhythm, +S1, +S2, Murmur. absent: Bradycardia, Clicks, Diastolic murmur, Gallop, REGULAR RHYTHM, JVD, RRR, Rubs, +S4 - GI/Abdominal Exam GI & Abdominal Exam: Soft, Normal Bowel Sounds. absent: Bruit, Distended, Firm, Guarding, Rigid, Tenderness, Diminished Bowel Sounds, Hernia, Hyperactive Bowel Sounds, Hypoactive Bowel Sounds, Organomegaly, Pulsatile Mass, Rebound, Mass - Rectal Exam Rectal Exam: Deferred - Extremities Exam Extremities Exam: Full ROM, Normal Capillary Refill, Pedal Edema. absent: Calf Tenderness, Joint Swelling, Normal Inspection, Tenderness - Back Exam Back Exam: NORMAL INSPECTION. absent: CVA tenderness (L), CVA tenderness (R), Full ROM, muscle spasm, paraspinal tenderness, rash noted, tenderness, vertebral tenderness - Neurological Exam Neurological Exam: Awake. absent: Abnormal Gait, Alert, Altered, CN II-XII Intact, Motor Sensory Deficit, Normal Gait, Oriented x3, Reflexes Normal - Psychiatric Exam Psychiatric exam: Agitated. absent: Anxious, Depressed, Flat Affect, Homicidal Ideation, Manic, Normal Affect, Normal Mood, Suicidal Ideation - Skin Skin Exam: Normal Color, Warm. absent: Abrasion, Cyanosis, Diaphoretic, Dry, Erythema, Intact, Mottled, Pallor, Pallor, Petechiae, Rash, Urticaria, Vesicles Assessment and Plan (1) Multifocal pneumonia Status: Acute (2) Altered mental status Status: Acute (3) SOB (shortness of breath) Status: Acute (4) Cough Status: Acute (5) Atrial fibrillation with RVR Status: Acute (6) Depression (emotion) Status: Resolved (7) Prerenal azotemia Status: Acute (8) Anxiety Status: Suspected (9) Edema Status: Resolved (10) Hypotension (arterial) Status: Acute (11) Respiratory failure Status: Resolved - Assessment and Plan (Free Text) Plan: can increase cardizem drip consider ivf if uo or bp decreases. stop tejal peres RN AND ICU ATTENDING 45 min total care time.
[2018-12-25] MEDS ORDERED: Ipratropium 0.02% Inhal Soln (0.5 mg/2.5 ml) UD IH SCH (20:00)
--- NOTE | 2018-12-25 20:24 | CON ---
DATE: 12/25/2018 ELECTROPHYSIOLOGY CONSULTATION REASON FOR EVALUATION: 1. Tachycardia. 2. Atrial fibrillation. 3. Ventilator dependent respiratory failure. 4. Systolic heart failure. 5. Right-sided pneumonia. REFERRING PHYSICIAN: Marketing Operations Assistant Karen Banda DO as well as Dr. Franco. Thank you very much for this consult. HISTORY OF PRESENT ILLNESS: Mr. Emanuel Bowen is a 73-year-old male with past medical history of hypertension, hypercholesterolemia, unclear history of atrial fibrillation who is initially brought in by EMS with worsening shortness of breath over the course of three weeks, inability to sleep perceived to be possibly orthopneic in nature, found in the field to be in rapid atrial fibrillation with heart rates in the 150s to 180s. The patient was given IV Cardizem in the emergency department with relative reduction in heart rates down into the 90s. Subsequently having managed with Cardizem drip, but with reduced blood pressure and hypertension limiting aggressiveness of rate control with Cardizem. In addition, the patient was found to have right-sided pneumonia and respiratory failure requiring intubation and ICU admission. I was asked to see him in regards to management of atrial fibrillation and requested to be seen by Dr. Karen Banda. The patient is intubated, does awake to voice, appears to nod appropriately. Remainder of relevant details of this case are gleaned from electronic medical records. PAST MEDICAL HISTORY: As mentioned previously atrial fibrillation, hypertension, hypercholesterolemia. PAST SURGICAL HISTORY: Noncontributory. FAMILY HISTORY: Unknown. SOCIAL HISTORY: Positive for tobacco use, ETOH use was denied as per electronic medical records. HOME MEDICATIONS: Appeared to be metoprolol succinate 50 mg b.i.d., diltiazem CD 300 mg p.o. daily and lisinopril 10 mg p.o. daily. REVIEW OF SYSTEMS: Prior review of systems were negative for fevers and chills. Positive for cough. Positive for palpitations. No documentation of chest pain. No documentation of abdominal pain, nausea, vomiting, diarrhea, constipation, no generalized weakness, numbness, headaches or dizziness. Chest x-ray which was done on 12/17/2018 shows a mildly improved left pleural effusion, underlying atelectasis, infiltrate not excluded at the left base, likely diminishing mid to inferior, right sided pulmonary infiltrate. There is a small right sided pleural effusion. On 12/24/2018, echocardiogram was performed shows that left ventricular is of normal size. Normal left ventricular wall thickness. Left ventricular systolic function is moderately decreased. Ejection fraction is 30 to 35% with moderate global hypokinesis. Left ventricular diastolic function cannot be assessed. No left ventricular thrombus is noted on the study. No ventricular septal defect is visualized. Right ventricle is of normal size and thickness. Left atrium is moderately dilated with right atrium being of normal size. Aortic valve appears to be of normal structure and function, mitral valve without evidence of mitral valve prolapse or stenosis. There is mild mitral regurgitation. There is moderate tricuspid regurgitation with an RVSP of 40 mmHg. No tricuspid valve prolapse is noted. Pulmonic valve is of normal structure. On telemetry, the patient was found to be in chronic atrial fibrillation, currently on Cardizem 7.5 mL/ hour which appears to be relatively controlled. There are occasional PVCs. Episodes of heart rates into the 130s, but again is currently controlled. EKG on presentation dated 12/15/2018 shows some coarse appearing atrial fibrillation with rapid ventricular response at a rate of 106 beats per minute. There is normal access across the limb length and its poor pericardial R wave progression incomplete right bundle branch block type pattern is seen. Q wave inversions laterally are also appreciated. QT and QTC is 360 and 480 msec respectively. LABORATORY DATA: On review of relevant lab work, the patient has a white count of 6.7, hemoglobin and hematocrit of 13.8 and 41.2 on 12/19/2018, currently the patient's white count is 4.4. H and H 14.1 and 43.2, platelet count of 165. Sodium of 139, potassium of 3.7, BUN and creatinine is 44 and 1.2, calcium is 8.1, troponin last checked on 12/23/2018 0.03, BNP 3380 which is elevated. Total protein is 5.4, albumin is 2.5. PHYSICAL EXAMINATION: GENERAL: On exam, the patient is intubated, but arousable. In general, he appears to be debilitated elderly gentleman in no acute distress, again intubated, opens his eyes to voice, distracts and does nod appropriately. VITAL SIGNS: Temperature is 98.1, pulse rate of 102, blood pressure is 108/65, respiratory rate of 11. HEENT: Head is normocephalic. Atraumatic. Ears intubated. Eyes examination does have injected sclerae. Mucous membranes appear moist. He appears somewhat unkempt. NECK: Supple. No jugular venous distention. No carotid bruits. CARDIOVASCULAR: Regular irregular rhythm. S1 and S2. No S3 or S4. PMI is difficult to appreciate secondary to body habitus. CHEST: Notable for bilateral coarse breath sounds. EXTREMITIES: The patient does have bilateral pedal edema with Flowtron's in place. ASSESSMENT AND PLAN: 1. Tachycardia secondary to underlying atrial fibrillation with rapid ventricular response. The patient appears to have a chronic history of atrial fibrillation and is on significant doses of rate slowing medications, which include high dose Cardizem and metoprolol as an outpatient. Currently the patient is on a Cardizem drip which for the most part is controlling his heart rate. His blood pressure is sensitive. It is unclear if longstanding tachycardia is responsible for his moderate degree of LV dysfunction. Long-term pursuing sinus rhythm may be helpful in this gentleman. A transesophageal echocardiography cardioversion. Once the patient's pulmonary status improves, antiarrhythmic therapy in the form of amiodarone should also be considered not only for rhythm management but perhaps rate control as well. 2. Atrial fibrillation which at this point appears chronic. He does not appear to be on anticoagulation. Currently the patient is on Lovenox 110 mg every 12 hours to this point is resulting in mild bleeding/oozing at the site of the triple lumen access catheter and groin as well as with repeated blood draws. The patient does have an OG tube and therefore we may consider oral anticoagulation agent. detention the patient appears to be doing better from a heart failure standpoint with normal rhythm. We may consider an atrial fibrillation or pulmonary vein isolation and this gentleman. I will discuss this further Dr. Karen Banda. 3. Ventilator dependent respiratory failure. The patient is currently intubated, receiving antibiotics for what is presumed to be a right middle lobe pneumonia. 4. Systolic heart failure of unclear duration. Further evaluation and management as per Dr. Banda. Ejection fraction is within 35 and 40%. If there is a further drop in the ejection fraction we may consider atrial fibrillator for primary prevention. 5. Right-sided pneumonia for which the patient is to be continued on antibiotics. Greater than 60 minutes were spent in the patient's evaluation and management. Thank you for allowing me to participate in the care of your patient. Sathish Nails MD cc: Karen Banda DO, [facility] # [id number] [facility]ay
[2018-12-26] MEDS: Dexmedetomidine Hydrochloride 400 MCG in Sodium Chloride 0.9% 96 ML IV ONE ×2 (00:35→04:53)
[2018-12-26] MEDS: Meropenem 1 GM in Sodium Chloride 0.9% 100 ML IVPB SCH ×3 (00:40→17:01)
[2018-12-26] MEDS: Levalbuterol 1.25 MG/3 ML Inhal Soln UD INH SCH ×3 (02:17→15:22)
[2018-12-26] MEDS: Ipratropium 0.02% Inhal Soln (0.5 mg/2.5 ml) UD IH SCH ×4 (02:17→20:01)
[2018-12-26 05:09] LABS: MEAN CELL VOLUME 98.1 fl (80.0-94.0); MEAN CORPUSCULAR HEMOGLOBIN 31.9 pg (27.0-31.0); MEAN CORPUSCULAR HGB CONC 32.5 g/dL (33.0-37.0); RBC 3.76 Mil/uL (4.40-5.90); RED CELL DISTRIBUTION WIDTH 14.8 % (11.5-14.5); WHITE BLOOD COUNT 6.3 K/uL (4.8-10.8)
[2018-12-26 05:26] LABS: ALB/GLOB RATIO 0.9 (1.0-2.1); ALBUMIN 2.5 g/dL (3.5-5.0); ALT/SGPT 59 U/L (21-72); AST/SGOT 38 U/L (17-59); BLOOD UREA NITROGEN 44 mg/dl (9-20); CALCIUM 8.1 mg/dL (8.4-10.2); GFR NON-AFRICAN AMERICAN > 60
[2018-12-26 05:37] LABS: ABG ALLEN TEST YES; ARTERIAL BLOOD GAS HEMOGLOBIN 12.2 g/dL (11.7-17.4); ARTERIAL BLOOD GAS O2 CAPACITY 16.7 mL/dL (16-24); ARTERIAL BLOOD GAS O2 CONTENT 16.6 ML/dL (15-23); ARTERIAL BLOOD GAS O2 SAT 99.3 % (95-98); ARTERIAL BLOOD GAS PCO2 43 mm/Hg (35-45); ARTERIAL BLOOD GAS PH 7.45 (7.35-7.45); ARTERIAL BLOOD GAS PO2 94 mm/Hg (80-100); ARTERIAL BLOOD GAS TCO2 31.2 mmol/L (22-28)
[2018-12-26] MEDS: Acetylcysteine 10% 4 ML IH SCH ×2 (07:35→20:01)
[2018-12-26] MEDS ORDERED: Dexmedetomidine Hydrochloride 400 MCG in Sodium Chloride 0.9% 96 ML IV ONE ×2 (08:39→13:00)
--- NOTE | 2018-12-26 08:39 | CP.CCUPN ---
CCU Subjective - Physician Review Subjective (Free Text): Sedated on Precedex, remains on Cardizem drip, HR 80s, SBP 100-110s, SPo2 98% on 50% oxygen, breathing 18 on AC 12, PPP= 21, Ve= 7.1. Fluid balance 2.4L positive. No new temp spikes, temps remain mostly 98F. ROS: No other pertinent negs or positive on 10+ system review obtainable due to sedated status Other PMSFH: All other Nursing and physician documentation reviewed to date; no new pertinent info noted relevant to current medical problems. EXAM- HEENT: no icterus, pupils equal, 3 mm and reactive, no gaze preference, opens eyes briefly to pain. NECK: no visible JVD, supple, carotids equal upstroke bilat/no bruits CHEST: decreased BS bases, no wheezes audible HEART: irregular, distant, tachy S1S2, no murmur audible, no rubs. ABD: soft, no distention, no ascites, no focal tenderness, BS hypoactive EXT: + edema UEs and LEs, no calf tenderness or palpable cords, distal pulses intact and symmetrical NEURO: withdraws to pain stimuli SKIN: no rashes LABS: WBC= 6.3 HGB= 12.0 PLTs = 217K Na= 142 K= 3.9 Cl= 106 HCO3= 31 BUN/Cr= 44/1.0 BS= 134 7.45/43/94 ABG CXR: (my interp)- ETT position OK above george, bilateral infiltrates and effusion. IMPRESSION / MAJOR PROBLEMS NOW: 1. Acute hypoxemic resp failure 2 MultiLobar Pneumonia, possible Aspiration event; and Superimposed Left CHF 2. Rapid A Fib 3. Azotemia / Dehydration 4. Metabolic Encephalopathy PLAN: 1. MV support, unable to lower FiO2 from 50% today. Pulm eval noted, may need FOB/BAL if CXR does not improve. 2. Empiric abx coverage on Jacky/Vanco/Flagyl, no organisms able to be isolated yet. 3. Diuretics reduced, and now discontinued, remains on Cardizem (could taper), or otherwise as directed by Cardiology. As he remains in AFib, consider AC. 4. Venous Dopplers of the legs negative for DVT. SCDs ordered, on Lovenox too. 5. See orders for other supportive care. Time spent with this patient did not overlap with any other provider's medical or critical care time. Additionally the code selected for the services rendered in this note includes the time spent: talking to the patients family, associated physicians and reviewing hospital data/results not listed here which extended to a total of 35 minutes of critical care.
[2018-12-26] MEDS: metroNIDAZOLE 500mg/100ml NS 100 ML IVPB SCH ×2 (08:52→20:16)
[2018-12-26] MEDS ORDERED: Enoxaparin 120 mg Syringe SC SCH (09:00)
[2018-12-26] MEDS: Enoxaparin 120 mg Syringe SC SCH ×2 (09:32→20:56)
--- NOTE | 2018-12-26 10:51 | CP.PCM.PN ---
Subjective - Date & Time of Evaluation Date of Evaluation: 12/22/18 Time of Evaluation: 18:30 - Subjective Subjective: Seen and examined at the bed side. Continue to cough. Objective - Vital Signs/Intake and Output Vital Signs (last 24 hours): Temp Pulse Resp BP Pulse Ox 96.6 F L 83 12 108/76 100 12/26/18 08:00 12/26/18 08:00 12/26/18 08:00 12/26/18 08:00 12/26/18 08:00 Intake and Output: 12/26/18 12/26/18 06:59 18:59 Intake Total 1770 Output Total 350 Balance 1420 - Medications Medications: Current Medications Acetaminophen (Tylenol 325mg Tab) 650 mg PO Q6 PRN PRN Reason: Pain, Mild (1-3) Last Admin: 12/24/18 20:36 Dose: 650 mg Acetylcysteine (Mucomyst 10% 4ml) 2 ml IH RBID NELLI Last Admin: 12/26/18 07:35 Dose: 2 ml Alprazolam (Xanax) 0.5 mg PO Q12 NELLI Stop: 12/27/18 10:31 Last Admin: 12/23/18 10:34 Dose: 0.5 mg Docusate Sodium (Colace) 100 mg PO DAILY NELLI Last Admin: 12/23/18 10:29 Dose: 100 mg Enoxaparin Sodium (Lovenox) 110 mg SC Q12 NELLI; Protocol Last Admin: 12/26/18 09:32 Dose: 110 mg Famotidine (Pepcid) 20 mg IVP Q12 NELLI Last Admin: 12/26/18 08:58 Dose: 20 mg Metronidazole (Flagyl 500mg/100ml Ns) 100 mls @ 100 mls/hr IVPB Q12 NELLI; Protocol Last Admin: 12/26/18 08:52 Dose: 100 mls/hr Meropenem 1 gm/ Sodium (Chloride) 100 mls @ 100 mls/hr IVPB Q8 NELLI; Protocol Last Admin: 12/26/18 08:53 Dose: 100 mls/hr Vancomycin HCl 1 gm/ Sodium (Chloride) 250 mls @ 166.667 mls/hr IVPB Q12 NELLI; Protocol Last Admin: 12/26/18 08:54 Dose: 166.667 mls/hr Dexmedetomidine HCl 400 mcg/ (Sodium Chloride) 100 mls @ 27.67 mls/hr IV .Q3H37M ONE; Protocol Stop: 12/26/18 12:15 Last Admin: 12/26/18 09:33 Dose: 1 mcg/kg/hr, 27.67 mls/hr Ipratropium [place] (Atrovent) 0.5 mg IH RQ6 NELLI Last Admin: 12/26/18 07:35 Dose: 0.5 mg Lactic Acid (Lac-Hydrin 12% Lotion (225 G)) 1 applic TOP BID NELLI Last Admin: 12/26/18 08:53 Dose: 1 applic Levalbuterol HCl (Xopenex) 1.25 mg INH RQ8 NELLI Last Admin: 12/26/18 07:35 Dose: 1.25 mg Promethazine HCl/Dextromethorphan (Phenergan Dm Syrup) 5 ml PO Q6 PRN PRN Reason: Cough and congestion Last Admin: 12/15/18 22:00 Dose: 5 ml - Labs Labs: 12/26/18 04:13 12/26/18 04:13 PT 16.8 Seconds (9.8-13.1) H 12/25/18 05:40 INR 1.5 12/25/18 05:40 APTT 43.1 Seconds (25.6-37.1) H 12/25/18 05:40 Assessment and Plan - Assessment and Plan (Free Text) Assessment: Aspiration PNA A fib with RVR Essential HTN Plan: IVF IV Lasix IV [id number] Cardizem Infusion 15mg/hr Cardiology and ID Consult
--- NOTE | 2018-12-26 10:51 | CP.PCM.PN ---
Subjective - Date & Time of Evaluation Date of Evaluation: 12/23/18 Time of Evaluation: 17:20 - Subjective Subjective: Seen and examined at the bed side. NDT INSPECTOR called by staff for Hypoxemia , dypnea,patient being AMS , lethargic and diaphoretic. As per chart patient admitted with SOB, multifocal pneumonia seen on CT , afib with RVR, HTN patient placed on NRM and still Hypoxemic in acute respiratory distress . Patient was transferred to ICU and Intubated for Acute Respiratory Failure with Hypoxemia and Hypercapnia. Objective - Vital Signs/Intake and Output Vital Signs (last 24 hours): Temp Pulse Resp BP Pulse Ox 96.6 F L 83 12 108/76 100 12/26/18 08:00 12/26/18 08:00 12/26/18 08:00 12/26/18 08:00 12/26/18 08:00 Intake and Output: 12/26/18 12/26/18 06:59 18:59 Intake Total 1770 Output Total 350 Balance 1420 - Medications Medications: Current Medications Acetaminophen (Tylenol 325mg Tab) 650 mg PO Q6 PRN PRN Reason: Pain, Mild (1-3) Last Admin: 12/24/18 20:36 Dose: 650 mg Acetylcysteine (Mucomyst 10% 4ml) 2 ml IH RBID [facility] Last Admin: 12/26/18 07:35 Dose: 2 ml Alprazolam (Xanax) 0.5 mg PO Q12 NELLI Stop: 12/27/18 10:31 Last Admin: 12/23/18 10:34 Dose: 0.5 mg Docusate Sodium (Colace) 100 mg PO DAILY [facility] Last Admin: 12/23/18 10:29 Dose: 100 mg Enoxaparin Sodium (Lovenox) 110 mg SC Q12 NELLI; Protocol Last Admin: 12/26/18 09:32 Dose: 110 mg Famotidine (Pepcid) 20 mg IVP Q12 NELLI Last Admin: 12/26/18 08:58 Dose: 20 mg Metronidazole (Flagyl 500mg/100ml Ns) 100 mls @ 100 mls/hr IVPB Q12 NELLI; Protocol Last Admin: 12/26/18 08:52 Dose: 100 mls/hr Meropenem 1 gm/ Sodium (Chloride) 100 mls @ 100 mls/hr IVPB Q8 NELLI; Protocol Last Admin: 12/26/18 08:53 Dose: 100 mls/hr Vancomycin HCl 1 gm/ Sodium (Chloride) 250 mls @ 166.667 mls/hr IVPB Q12 NELLI; Protocol Last Admin: 12/26/18 08:54 Dose: 166.667 mls/hr Dexmedetomidine HCl 400 mcg/ (Sodium Chloride) 100 mls @ 27.67 mls/hr IV .Q3H37M ONE; Protocol Stop: 12/26/18 12:15 Last Admin: 12/26/18 09:33 Dose: 1 mcg/kg/hr, 27.67 mls/hr Ipratropium [place] (Atrovent) 0.5 mg IH RQ6 NELLI Last Admin: 12/26/18 07:35 Dose: 0.5 mg Lactic Acid (Lac-Hydrin 12% Lotion (225 G)) 1 applic TOP BID NELLI Last Admin: 12/26/18 08:53 Dose: 1 applic Levalbuterol HCl (Xopenex) 1.25 mg INH RQ8 NELLI Last Admin: 12/26/18 07:35 Dose: 1.25 mg Promethazine HCl/Dextromethorphan (Phenergan Dm Syrup) 5 ml PO Q6 PRN PRN Reason: Cough and congestion Last Admin: 12/15/18 22:00 Dose: 5 ml - Labs Labs: 12/26/18 04:13 12/26/18 04:13 PT 16.8 Seconds (9.8-13.1) H 12/25/18 05:40 INR 1.5 12/25/18 05:40 APTT 43.1 Seconds (25.6-37.1) H 12/25/18 05:40 - ENT Exam Additional comments: Intubated and Sedated. Assessment and Plan (1) Acute respiratory failure with hypoxia and hypercapnia Status: Acute (2) Altered mental status Status: Acute (3) Atrial fibrillation with RVR Status: Acute (4) Multifocal pneumonia Status: Acute (5) Pleural effusion, bilateral Status: Acute (6) CHF (congestive heart failure) Status: Acute (7) Chest pain Status: Acute (8) Fall Status: Acute (9) Hypertension Status: Chronic - Assessment and Plan (Free Text) Plan: Contine MV IV Zosyn and Azithromycin [place] RTC IV Cardizem Infusion ID, Cardiology and Pulmonary Consult
--- NOTE | 2018-12-26 10:52 | CP.PCM.PN ---
Subjective - Date & Time of Evaluation Date of Evaluation: 12/24/18 Time of Evaluation: 16:10 - Subjective Subjective: Seen and examined at the bed side. On MV. Objective - Vital Signs/Intake and Output Vital Signs (last 24 hours): Temp Pulse Resp BP Pulse Ox 96.6 F L 83 12 108/76 100 12/26/18 08:00 12/26/18 08:00 12/26/18 08:00 12/26/18 08:00 12/26/18 08:00 Intake and Output: 12/26/18 12/26/18 06:59 18:59 Intake Total 1770 Output Total 350 Balance 1420 - Medications Medications: Current Medications Acetaminophen (Tylenol 325mg Tab) 650 mg PO Q6 PRN PRN Reason: Pain, Mild (1-3) Last Admin: 12/24/18 20:36 Dose: 650 mg Acetylcysteine (Mucomyst 10% 4ml) 2 ml IH RBID NELLI Last Admin: 12/26/18 07:35 Dose: 2 ml Alprazolam (Xanax) 0.5 mg PO Q12 NELLI Stop: 12/27/18 10:31 Last Admin: 12/23/18 10:34 Dose: 0.5 mg Docusate Sodium (Colace) 100 mg PO DAILY NELLI Last Admin: 12/23/18 10:29 Dose: 100 mg Enoxaparin Sodium (Lovenox) 110 mg SC Q12 NELLI; Protocol Last Admin: 12/26/18 09:32 Dose: 110 mg Famotidine (Pepcid) 20 mg IVP Q12 NELLI Last Admin: 12/26/18 08:58 Dose: 20 mg Metronidazole (Flagyl 500mg/100ml Ns) 100 mls @ 100 mls/hr IVPB Q12 NELLI; Protocol Last Admin: 12/26/18 08:52 Dose: 100 mls/hr Meropenem 1 gm/ Sodium (Chloride) 100 mls @ 100 mls/hr IVPB Q8 NELLI; Protocol Last Admin: 12/26/18 08:53 Dose: 100 mls/hr Vancomycin HCl 1 gm/ Sodium (Chloride) 250 mls @ 166.667 mls/hr IVPB Q12 NELLI; Protocol Last Admin: 12/26/18 08:54 Dose: 166.667 mls/hr Dexmedetomidine HCl 400 mcg/ (Sodium Chloride) 100 mls @ 27.67 mls/hr IV .Q3H37M ONE; Protocol Stop: 12/26/18 12:15 Last Admin: 12/26/18 09:33 Dose: 1 mcg/kg/hr, 27.67 mls/hr Ipratropium [place] (Atrovent) 0.5 mg IH RQ6 NELLI Last Admin: 12/26/18 07:35 Dose: 0.5 mg Lactic Acid (Lac-Hydrin 12% Lotion (225 G)) 1 applic TOP BID NELLI Last Admin: 12/26/18 08:53 Dose: 1 applic Levalbuterol HCl (Xopenex) 1.25 mg INH RQ8 NELLI Last Admin: 12/26/18 07:35 Dose: 1.25 mg Promethazine HCl/Dextromethorphan (Phenergan Dm Syrup) 5 ml PO Q6 PRN PRN Reason: Cough and congestion Last Admin: 12/15/18 22:00 Dose: 5 ml - Labs Labs: 12/26/18 04:13 12/26/18 04:13 PT 16.8 Seconds (9.8-13.1) H 12/25/18 05:40 INR 1.5 12/25/18 05:40 APTT 43.1 Seconds (25.6-37.1) H 12/25/18 05:40 - Head Exam Head Exam: ATRAUMATIC, NORMAL INSPECTION, NORMOCEPHALIC - Eye Exam Eye Exam: EOMI, Normal appearance, PERRL Pupil Exam: NORMAL ACCOMODATION, PERRL - ENT Exam ENT Exam: Mucous Membranes Moist, Normal Exam - Neck Exam Neck Exam: Full ROM, Normal Inspection. absent: Lymphadenopathy - Respiratory Exam Respiratory Exam: Clear to Ausculation Bilateral, NORMAL BREATHING PATTERN - Cardiovascular Exam Cardiovascular Exam: REGULAR RHYTHM, +S1, +S2. absent: Murmur - GI/Abdominal Exam GI & Abdominal Exam: Soft, Normal Bowel Sounds. absent: Tenderness - Extremities Exam Extremities Exam: Full ROM, Normal Capillary Refill, Normal Inspection. absent: Joint Swelling, Pedal Edema - Back Exam Back Exam: NORMAL INSPECTION - Neurological Exam Neurological Exam: Alert, Awake, CN II-XII Intact, Normal Gait, Oriented x3 - Psychiatric Exam Psychiatric exam: Normal Affect, Normal Mood - Skin Skin Exam: Dry, Intact, Normal Color, Warm Assessment and Plan (1) Acute respiratory failure with hypoxia and hypercapnia Assessment & Plan: S/P Intubation on MV Status: Acute (2) Atrial fibrillation with RVR Status: Acute (3) Multifocal pneumonia Status: Acute (4) Hypertension Status: Chronic - Assessment and Plan (Free Text) Plan: Continue Current Care
--- NOTE | 2018-12-26 10:53 | CP.PCM.PN ---
Subjective - Date & Time of Evaluation Date of Evaluation: 12/25/18 Time of Evaluation: 17:15 - Subjective Subjective: Uneventful night Objective - Vital Signs/Intake and Output Vital Signs (last 24 hours): Temp Pulse Resp BP Pulse Ox 96.6 F L 83 12 108/76 100 12/26/18 08:00 12/26/18 08:00 12/26/18 08:00 12/26/18 08:00 12/26/18 08:00 Intake and Output: 12/26/18 12/26/18 06:59 18:59 Intake Total 1770 Output Total 350 Balance 1420 - Medications Medications: Current Medications Acetaminophen (Tylenol 325mg Tab) 650 mg PO Q6 PRN PRN Reason: Pain, Mild (1-3) Last Admin: 12/24/18 20:36 Dose: 650 mg Acetylcysteine (Mucomyst 10% 4ml) 2 ml IH RBID NELLI Last Admin: 12/26/18 07:35 Dose: 2 ml Alprazolam (Xanax) 0.5 mg PO Q12 NELLI Stop: 12/27/18 10:31 Last Admin: 12/23/18 10:34 Dose: 0.5 mg Docusate Sodium (Colace) 100 mg PO DAILY NELLI Last Admin: 12/23/18 10:29 Dose: 100 mg Enoxaparin Sodium (Lovenox) 110 mg SC Q12 NELLI; Protocol Last Admin: 12/26/18 09:32 Dose: 110 mg Famotidine (Pepcid) 20 mg IVP Q12 NELLI Last Admin: 12/26/18 08:58 Dose: 20 mg Metronidazole (Flagyl 500mg/100ml Ns) 100 mls @ 100 mls/hr IVPB Q12 NELLI; Protocol Last Admin: 12/26/18 08:52 Dose: 100 mls/hr Meropenem 1 gm/ Sodium (Chloride) 100 mls @ 100 mls/hr IVPB Q8 NELLI; Protocol Last Admin: 12/26/18 08:53 Dose: 100 mls/hr Vancomycin HCl 1 gm/ Sodium (Chloride) 250 mls @ 166.667 mls/hr IVPB Q12 NELLI; Protocol Last Admin: 12/26/18 08:54 Dose: 166.667 mls/hr Dexmedetomidine HCl 400 mcg/ (Sodium Chloride) 100 mls @ 27.67 mls/hr IV .Q3H37M ONE; Protocol Stop: 12/26/18 12:15 Last Admin: 12/26/18 09:33 Dose: 1 mcg/kg/hr, 27.67 mls/hr Ipratropium [place] (Atrovent) 0.5 mg IH RQ6 NELLI Last Admin: 12/26/18 07:35 Dose: 0.5 mg Lactic Acid (Lac-Hydrin 12% Lotion (225 G)) 1 applic TOP BID NELLI Last Admin: 12/26/18 08:53 Dose: 1 applic Levalbuterol HCl (Xopenex) 1.25 mg INH RQ8 NELLI Last Admin: 12/26/18 07:35 Dose: 1.25 mg Promethazine HCl/Dextromethorphan (Phenergan Dm Syrup) 5 ml PO Q6 PRN PRN Reason: Cough and congestion Last Admin: 12/15/18 22:00 Dose: 5 ml - Labs Labs: 12/26/18 04:13 12/26/18 04:13 PT 16.8 Seconds (9.8-13.1) H 12/25/18 05:40 INR 1.5 12/25/18 05:40 APTT 43.1 Seconds (25.6-37.1) H 12/25/18 05:40 Assessment and Plan (1) Acute respiratory failure with hypoxia and hypercapnia Assessment & Plan: MV Status: Acute (2) Atrial fibrillation with RVR Status: Acute (3) Multifocal pneumonia Status: Acute (4) COPD (chronic obstructive pulmonary disease) Status: Chronic - Assessment and Plan (Free Text) Assessment: Improving Plan: Continue Current Care
--- NOTE | 2018-12-26 12:05 | RAD ---
Date of service: 12/26/2018 PROCEDURE: CHEST RADIOGRAPH, 1 VIEW HISTORY: vdrf, intubated COMPARISON: Chest radiograph dated 12/25/2018. FINDINGS: LUNGS: Diffuse bilateral pulmonary infiltrates. PLEURA: Small bilateral pleural effusions. No pneumothorax. CARDIOVASCULAR: Aortic atherosclerotic calcifications. Cardiomediastinal silhouette stably enlarged. OSSEOUS STRUCTURES: Unchanged. VISUALIZED UPPER ABDOMEN: Normal. OTHER FINDINGS: Endotracheal and enteric tubes, unchanged. IMPRESSION: Stable tubes and lines. No significant change in diffuse bilateral pulmonary infiltrates and small bilateral pleural effusions.
--- NOTE | 2018-12-26 19:52 | CP.PCM.PN ---
Subjective - Date & Time of Evaluation Date of Evaluation: 12/26/18 - Subjective Subjective: F/U Respiratory failure Intubated on PRVC AC, eyes open, follows commands Objective - Vital Signs/Intake and Output Vital Signs (last 24 hours): Temp Pulse Resp BP Pulse Ox 99.0 F 106 H 14 106/71 100 12/26/18 16:00 12/26/18 18:00 12/26/18 18:00 12/26/18 18:00 12/26/18 18:00 Intake and Output: 12/26/18 12/27/18 18:59 06:59 Intake Total 1241 Balance 1241 - Medications Medications: Current Medications Acetaminophen (Tylenol 325mg Tab) 650 mg PO Q6 PRN PRN Reason: Pain, Mild (1-3) Last Admin: 12/24/18 20:36 Dose: 650 mg Acetylcysteine (Mucomyst 10% 4ml) 2 ml IH RBID NELLI Last Admin: 12/26/18 07:35 Dose: 2 ml Alprazolam (Xanax) 0.5 mg PO Q12 NELLI Stop: 12/27/18 10:31 Last Admin: 12/23/18 10:34 Dose: 0.5 mg Docusate Sodium (Colace) 100 mg PO DAILY NELLI Last Admin: 12/23/18 10:29 Dose: 100 mg Enoxaparin Sodium (Lovenox) 110 mg SC Q12 NELLI; Protocol Last Admin: 12/26/18 09:32 Dose: 110 mg Famotidine (Pepcid) 20 mg IVP Q12 NELLI Last Admin: 12/26/18 08:58 Dose: 20 mg Metronidazole (Flagyl 500mg/100ml Ns) 100 mls @ 100 mls/hr IVPB Q12 NELLI; Protocol Last Admin: 12/26/18 08:52 Dose: 100 mls/hr Meropenem 1 gm/ Sodium (Chloride) 100 mls @ 100 mls/hr IVPB Q8 NELLI; Protocol Last Admin: 12/26/18 17:01 Dose: 100 mls/hr Vancomycin HCl 1 gm/ Sodium (Chloride) 250 mls @ 166.667 mls/hr IVPB Q12 NELLI; Protocol Last Admin: 12/26/18 08:54 Dose: 166.667 mls/hr Diltiazem HCl 125 mg/ Sodium (Chloride) 125 mls @ 7.5 mls/hr IV .[id number] ONE; Protocol Stop: 12/27/18 08:39 Last Admin: 12/26/18 16:59 Dose: 7.5 mg/hr, 7.5 mls/hr Ipratropium [place] (Atrovent) 0.5 mg IH RQ6 NELLI Last Admin: 12/26/18 13:06 Dose: 0.5 mg Lactic Acid (Lac-Hydrin 12% Lotion (225 G)) 1 applic TOP BID NELLI Last Admin: 12/26/18 17:01 Dose: 1 applic Levalbuterol HCl (Xopenex) 1.25 mg INH RQ8 NELLI Last Admin: 12/26/18 15:22 Dose: 1.25 mg Promethazine HCl/Dextromethorphan (Phenergan Dm Syrup) 5 ml PO Q6 PRN PRN Reason: Cough and congestion Last Admin: 12/15/18 22:00 Dose: 5 ml - Labs Labs: 12/26/18 04:13 12/26/18 04:13 PT 16.8 Seconds (9.8-13.1) H 12/25/18 05:40 INR 1.5 12/25/18 05:40 APTT 43.1 Seconds (25.6-37.1) H 12/25/18 05:40 - Constitutional Appears: No Acute Distress - Head Exam Head Exam: NORMAL INSPECTION - Eye Exam Eye Exam: PERRL - ENT Exam Additional comments: Intubated. OGT - Neck Exam Neck Exam: Normal Inspection - Respiratory Exam Respiratory Exam: Decreased Breath Sounds (at bases R>L), Rhonchi - Cardiovascular Exam Cardiovascular Exam: Tachycardia, Irregular Rhythm, Murmur (systolic) - GI/Abdominal Exam GI & Abdominal Exam: Soft, Normal Bowel Sounds - Exam Additional comments: Cif[place]es Cath - Extremities Exam Additional comments: Edema UE's, LE's - Back Exam Back Exam: NORMAL INSPECTION - Neurological Exam Neurological Exam: Awake Additional comments: Intubated, eyes open, follows commands. - Psychiatric Exam Additional comments: Calm - Skin Skin Exam: Dry, Warm Assessment and Plan (1) Aspiration pneumonia of right lung Status: Acute (2) Multifocal pneumonia Status: Acute (3) Pleural effusion, bilateral Status: Acute (4) Respiratory failure Status: Acute (5) COPD (chronic obstructive pulmonary disease) Status: Chronic (6) Atrial fibrillation with RVR Status: Acute - Assessment and Plan (Free Text) Plan: Continue ventilatory support, Vanco, Merren, Flagyl, Xopenex Atrovent, Mucomyst , Lasix, Cardizem drip and rest of Tx. Critical care time: 30 min.
[2018-12-27] MEDS ORDERED: Dexmedetomidine Hydrochloride 400 MCG in Sodium Chloride 0.9% 96 ML IV ONE ×4 (00:15→16:56)
[2018-12-27] MEDS: Levalbuterol 1.25 MG/3 ML Inhal Soln UD INH SCH ×3 (01:01→15:19)
[2018-12-27] MEDS: Ipratropium 0.02% Inhal Soln (0.5 mg/2.5 ml) UD IH SCH ×4 (01:02→19:29)
[2018-12-27] MEDS: Meropenem 1 GM in Sodium Chloride 0.9% 100 ML IVPB SCH ×3 (01:19→17:46)
[2018-12-27 05:11] LABS: ABG ALLEN TEST YES; ARTERIAL BLOOD GAS HCO3 30.6 mmol/L (21-28); ARTERIAL BLOOD GAS HEMOGLOBIN 12.2 g/dL (11.7-17.4); ARTERIAL BLOOD GAS O2 CAPACITY 16.9 mL/dL (16-24); ARTERIAL BLOOD GAS O2 CONTENT 16.8 ML/dL (15-23); ARTERIAL BLOOD GAS O2 SAT 99.7 % (95-98); ARTERIAL BLOOD GAS PCO2 51 mm/Hg (35-45); ARTERIAL BLOOD GAS PH 7.42 (7.35-7.45); ARTERIAL BLOOD GAS PO2 115 mm/Hg (80-100); ARTERIAL BLOOD GAS TCO2 34.7 mmol/L (22-28)
[2018-12-27 05:55] LABS: HEMOGLOBIN 13.4 g/dL (12.0-18.0); MEAN CORPUSCULAR HEMOGLOBIN 31.6 pg (27.0-31.0); RBC 4.23 Mil/uL (4.40-5.90); RED CELL DISTRIBUTION WIDTH 15.2 % (11.5-14.5); WHITE BLOOD COUNT 5.3 K/uL (4.8-10.8)
[2018-12-27 06:11] LABS: ALB/GLOB RATIO 0.9 (1.0-2.1); ALBUMIN 2.6 g/dL (3.5-5.0); ALT/SGPT 50 U/L (21-72); AST/SGOT 39 U/L (17-59); BLOOD UREA NITROGEN 46 mg/dl (9-20); CALCIUM 8.2 mg/dL (8.4-10.2); GFR NON-AFRICAN AMERICAN > 60
[2018-12-27] MEDS: Acetylcysteine 10% 4 ML IH SCH ×2 (07:57→19:29)
[2018-12-27] MEDS: metroNIDAZOLE 500mg/100ml NS 100 ML IVPB SCH ×2 (08:40→20:16)
[2018-12-27] MEDS: Enoxaparin 120 mg Syringe SC SCH ×2 (08:41→20:16)
--- NOTE | 2018-12-27 09:46 | CP.PCM.PN ---
Subjective - Date & Time of Evaluation Date of Evaluation: 12/27/18 Time of Evaluation: 09:46 - Subjective Subjective: ID Note- Patient seen and examined in ICU. his son is at his bedside. Patient is awake and alert . can follow most commands. denies any pain or any chills. Objective - Vital Signs/Intake and Output Vital Signs (last 24 hours): Temp Pulse Resp BP Pulse Ox 98.8 F 96 H 12 122/71 100 12/27/18 09:00 12/27/18 09:00 12/27/18 09:00 12/27/18 09:00 12/27/18 09:00 Intake and Output: 12/27/18 12/27/18 06:59 18:59 Intake Total 1809 11 Output Total 420 Balance 1389 11 - Medications Medications: Current Medications Acetaminophen (Tylenol 325mg Tab) 650 mg PO Q6 PRN PRN Reason: Pain, Mild (1-3) Last Admin: 12/24/18 20:36 Dose: 650 mg Acetylcysteine (Mucomyst 10% 4ml) 2 ml IH RBID NELLI Last Admin: 12/27/18 07:57 Dose: 2 ml Alprazolam (Xanax) 0.5 mg PO Q12 NELLI Stop: 12/27/18 10:31 Last Admin: 12/23/18 10:34 Dose: 0.5 mg Docusate Sodium (Colace) 100 mg PO DAILY NELLI Last Admin: 12/23/18 10:29 Dose: 100 mg Enoxaparin Sodium (Lovenox) 110 mg SC Q12 NELLI; Protocol Last Admin: 12/27/18 08:41 Dose: 110 mg Famotidine (Pepcid) 20 mg IVP Q12 NELLI Last Admin: 12/27/18 09:08 Dose: 20 mg Metronidazole (Flagyl 500mg/100ml Ns) 100 mls @ 100 mls/hr IVPB Q12 NELLI; Protocol Last Admin: 12/27/18 08:40 Dose: 100 mls/hr Meropenem 1 gm/ Sodium (Chloride) 100 mls @ 100 mls/hr IVPB Q8 NELLI; Protocol Last Admin: 12/27/18 08:42 Dose: 100 mls/hr Vancomycin HCl 1 gm/ Sodium (Chloride) 250 mls @ 166.667 mls/hr IVPB Q12 NELLI; Protocol Last Admin: 12/27/18 08:43 Dose: 166.667 mls/hr Ipratropium [place] (Atrovent) 0.5 mg IH RQ6 [facility] Last Admin: 12/27/18 07:58 Dose: 0.5 mg Lactic Acid (Lac-Hydrin 12% Lotion (225 G)) 1 applic TOP BID NELLI Last Admin: 12/27/18 08:41 Dose: 1 applic Levalbuterol HCl (Xopenex) 1.25 mg INH RQ8 [facility] Last Admin: 12/27/18 07:58 Dose: 1.25 mg Promethazine HCl/Dextromethorphan (Phenergan Dm Syrup) 5 ml PO Q6 PRN PRN Reason: Cough and congestion Last Admin: 12/15/18 22:00 Dose: 5 ml - Labs Labs: - Additional Findings Additional findings: - Constitutional Appears: awake - Head Exam Head Exam: ATRAUMATIC - ENT Exam Additional comments: ET and OGT in place - Respiratory Exam Additional comments: on the vent decreased breath sounds at right base - Cardiovascular Exam Cardiovascular Exam: Tachycardia, +S1, +S2 - GI/Abdominal Exam GI & Abdominal Exam: Soft, Normal Bowel Sounds Additional comments: NT, ND - Extremities Exam Extremities Exam: Normal Inspection - Neurological Exam Neurological Exam: awake and follows commands Laboratory Results - last 72 hr 12/22/18 12/25/18 12/25/18 16:49 04:39 05:40 WBC 4.4 L RBC 4.42 Hgb 14.1 D Hct 43.4 MCV 98.3 H MCH 31.9 H MCHC 32.5 L RDW 14.8 H Plt Count 165 MPV 8.0 Neut % (Auto) 80.3 H Lymph % (Auto) 7.9 L [place] % (Auto) 9.2 Eos % (Auto) 2.0 Baso % (Auto) 0.6 Neut # (Auto) 3.5 Lymph # (Auto) 0.3 L [place] # (Auto) 0.4 Eos # (Auto) 0.1 Baso # (Auto) 0.0 PT INR APTT pCO2 49 H pO2 134 H HCO3 30.4 H ABG pH 7.43 ABG Total CO2 34.0 H ABG O2 Saturation 99.8 H ABG O2 Content ABG Base Excess 6.9 H ABG Hemoglobin ABG Carboxyhemoglobin POC ABG HHb (Measured) ABG Methemoglobin ABG O2 Capacity [place] Test Yes ABG Potassium 3.7 A-a O2 Difference 233.0 Hgb O2 Saturation Sodium 139.0 Chloride 106.0 Glucose 140 H Lactate 0.8 Vent Mode A/c Mechanical Rate 12 FiO2 60.0 Tidal Volume 500 PEEP 5 Potassium Carbon Dioxide Anion Gap BUN Creatinine Est GFR ( Amer) Est GFR (Non-Af Amer) Random Glucose Calcium Phosphorus Magnesium Total Bilirubin AST ALT Alkaline Phosphatase Total Protein Albumin Globulin Albumin/Globulin Ratio Arterial Blood Potassium 3.7 Vancomycin Trough Cold Agglutinins Negative 12/25/18 12/25/18 12/25/18 05:40 05:40 05:40 WBC RBC Hgb Hct MCV MCH MCHC RDW Plt Count MPV Neut % (Auto) Lymph % (Auto) [place] % (Auto) Eos % (Auto) Baso % (Auto) Neut # (Auto) Lymph # (Auto) [place] # (Auto) Eos # (Auto) Baso # (Auto) PT 16.8 H INR 1.5 APTT 43.1 H pCO2 pO2 HCO3 ABG pH ABG Total CO2 ABG O2 Saturation ABG O2 Content ABG Base Excess ABG Hemoglobin ABG Carboxyhemoglobin POC ABG HHb (Measured) ABG Methemoglobin ABG O2 Capacity [place] Test ABG Potassium A-a O2 Difference Hgb O2 Saturation Sodium 139 Chloride 104 Glucose Lactate Vent Mode Mechanical Rate FiO2 Tidal Volume PEEP Potassium 3.7 Carbon Dioxide 31 H Anion Gap 8 L BUN 44 H Creatinine 1.2 Est GFR ( Amer) > 60 Est GFR (Non-Af Amer) 59 Random Glucose 130 H Calcium 8.1 L Phosphorus 3.5 Magnesium 2.3 Total Bilirubin 0.5 AST 43 ALT 63 Alkaline Phosphatase 145 H Total Protein 5.4 L Albumin 2.5 L Globulin 2.9 Albumin/Globulin Ratio 0.9 L Arterial Blood Potassium Vancomycin Trough 12.9 H Cold Agglutinins 12/26/18 12/26/18 12/26/18 04:13 04:13 05:05 WBC 6.3 RBC 3.76 L Hgb 12.0 D Hct 36.9 MCV 98.1 H MCH 31.9 H MCHC 32.5 L RDW 14.8 H Plt Count 217 MPV Neut % (Auto) Lymph % (Auto) [place] % (Auto) Eos % (Auto) Baso % (Auto) Neut # (Auto) Lymph # (Auto) [place] # (Auto) Eos # (Auto) Baso # (Auto) PT INR APTT pCO2 43 pO2 94 HCO3 29.0 H ABG pH 7.45 ABG Total CO2 31.2 H ABG O2 Saturation 99.3 H ABG O2 Content 16.6 ABG Base Excess 5.3 H ABG Hemoglobin 12.2 ABG Carboxyhemoglobin 1.9 H POC ABG HHb (Measured) 0.7 ABG Methemoglobin 1.3 ABG O2 Capacity 16.7 [place] Test Yes ABG Potassium A-a O2 Difference 209.0 Hgb O2 Saturation 96.2 Sodium 142 Chloride 106 Glucose Lactate Vent Mode A/c Mechanical Rate 12 FiO2 50.0 Tidal Volume 500 PEEP 5 Potassium 3.9 Carbon Dioxide 31 H Anion Gap 9 L BUN 44 H Creatinine 1.0 Est GFR ( Amer) > 60 Est GFR (Non-Af Amer) > 60 Random Glucose 134 H Calcium 8.1 L Phosphorus Magnesium Total Bilirubin 0.5 AST 38 ALT 59 Alkaline Phosphatase 141 H Total Protein 5.4 L Albumin 2.5 L Globulin 2.9 Albumin/Globulin Ratio 0.9 L Arterial Blood Potassium Vancomycin Trough Cold Agglutinins 12/27/18 12/27/18 12/27/18 04:58 05:31 05:31 WBC 5.3 RBC 4.23 L Hgb 13.4 Hct 41.9 MCV 99.0 H MCH 31.6 H MCHC 32.0 L RDW 15.2 H Plt Count 208 MPV Neut % (Auto) Lymph % (Auto) [place] % (Auto) Eos % (Auto) Baso % (Auto) Neut # (Auto) Lymph # (Auto) [place] # (Auto) Eos # (Auto) Baso # (Auto) PT INR APTT pCO2 51 H pO2 115 H HCO3 30.6 H ABG pH 7.42 ABG Total CO2 34.7 H ABG O2 Saturation 99.7 H ABG O2 Content 16.8 ABG Base Excess 7.3 H ABG Hemoglobin 12.2 ABG Carboxyhemoglobin 1.8 H POC ABG HHb (Measured) 0.3 ABG Methemoglobin 1.1 ABG O2 Capacity 16.9 [place] Test Yes ABG Potassium A-a O2 Difference 178.0 Hgb O2 Saturation 96.8 Sodium 141 Chloride 106 Glucose Lactate Vent Mode A/c Mechanical Rate 12 FiO2 50.0 Tidal Volume 500 PEEP 5 Potassium 3.9 Carbon Dioxide 30 Anion Gap 9 L BUN 46 H Creatinine 1.0 Est GFR ( Amer) > 60 Est GFR (Non-Af Amer) > 60 Random Glucose 157 H Calcium 8.2 L Phosphorus Magnesium Total Bilirubin 0.4 AST 39 ALT 50 Alkaline Phosphatase 185 H D Total Protein 5.5 L Albumin 2.6 L Globulin 2.9 Albumin/Globulin Ratio 0.9 L Arterial Blood Potassium Vancomycin Trough Cold Agglutinins 12/27/18 07:10 WBC RBC Hgb Hct MCV MCH MCHC RDW Plt Count MPV Neut % (Auto) Lymph % (Auto) [place] % (Auto) Eos % (Auto) Baso % (Auto) Neut # (Auto) Lymph # (Auto) [place] # (Auto) Eos # (Auto) Baso # (Auto) PT INR APTT pCO2 pO2 HCO3 ABG pH ABG Total CO2 ABG O2 Saturation ABG O2 Content ABG Base Excess ABG Hemoglobin ABG Carboxyhemoglobin POC ABG HHb (Measured) ABG Methemoglobin ABG O2 Capacity [place] Test ABG Potassium A-a O2 Difference Hgb O2 Saturation Sodium Chloride Glucose Lactate Vent Mode Mechanical Rate FiO2 Tidal Volume PEEP Potassium Carbon Dioxide Anion Gap BUN Creatinine Est GFR ( Amer) Est GFR (Non-Af Amer) Random Glucose Calcium Phosphorus Magnesium Total Bilirubin AST ALT Alkaline Phosphatase Total Protein Albumin Globulin Albumin/Globulin Ratio Arterial Blood Potassium Vancomycin Trough 10.8 H Cold Agglutinins Microbiology 12/21/18 17:25 Blood-Venous Blood Culture - Final NO GROWTH AFTER 5 DAYS 12/21/18 17:25 Blood-Venous Gram Stain - Final TEST NOT PERFORMED 12/21/18 17:20 Blood-Venous Blood Culture - Final NO GROWTH AFTER 5 DAYS 12/21/18 17:20 Blood-Venous Gram Stain - Final TEST NOT PERFORMED 12/22/18 16:49 Blood-Venous Blood Culture - Preliminary NO GROWTH AFTER 4 DAYS 12/26/18 09:00 Trachasp Gram Stain - Final 12/23/18 17:10 Trachasp Gram Stain - Final 12/23/18 17:10 Trachasp Sputum Culture - Final No growth. 12/22/18 07:32 Urine,Clean Catch Urine Culture - Final No Growth (<1,000 CFU/ML) 12/23/18 15:30 Nose MRSA Culture (Admit) - Final MRSA NOT DETECTED Accession No. : [id number] Patient Name / ID : ASHISH Gutierrez / [id number] Exam Date : 12/27/2018 04:13:20 ( Approved ) Study Comment : Sex / Age : M / [id number] Creator : Nick Dorantes MD Dictator : Nick Dorantes MD Passenger Car Conductor : Laborer Prestressed Concrete : Nick Dorantes MD Approver2 : Report Date : 12/27/2018 11:50:30 My Comment : Date of service: 12/27/2018 HISTORY: Intubated COMPARISON: Portable chest 12/26/2018. TECHNIQUE: 1 view obtained. FINDINGS: LUNGS: Endotracheal and orogastric tubes are not significantly changed in position. Bilateral pleural effusions are not significantly changed as well as diffuse bilateral pulmonary infiltrates. No pneumothorax bilaterally. No pulmonary vascular congestion. Cardiac size remains normal. PLEURA: As above. CARDIOVASCULAR: Calcific atherosclerotic changes are seen related to the thoracic aorta. And as above. OSSEOUS STRUCTURES: No significant abnormalities. VISUALIZED UPPER ABDOMEN: Normal. OTHER FINDINGS: None. IMPRESSION: Stable bilateral pulmonary infiltrates and mild bilateral pleural effusions Assessment and Plan (1) Atrial fibrillation with RVR Status: Acute (2) Altered mental status Status: Acute (3) Pneumonia Status: Acute (4) Multifocal pneumonia Status: Acute - Assessment and Plan (Free Text) Assessment: A/P- 73 year old male with a.fib and now found to have altered mental status and Right sided pneumonia , developed hypercapneic resp failure yesterday afternoon , s/p intubation and transferred to ICU. Intubated aspiration pneumonia of the right lung , multifocal pneumonia afebrile normal wbc count Blood cx- neg x 3 trach asp cx- Negative hepatitis panel- neg urine legionella AG- neg mycoplasma IGM- negative PLan- continue with IV meropnem day #5 continue with IV vancomyicn day #5 keep vanco trough <15. can continue the metronidazole day #6 for anaerobic coverage as well. all labs and imaging and chart notes reviewed. Critical care time spent 40 minutes.
--- NOTE | 2018-12-27 11:55 | RAD ---
Date of service: 12/27/2018 HISTORY: Intubated COMPARISON: Portable chest 12/26/2018. TECHNIQUE: 1 view obtained. FINDINGS: LUNGS: Endotracheal and orogastric tubes are not significantly changed in position. Bilateral pleural effusions are not significantly changed as well as diffuse bilateral pulmonary infiltrates. No pneumothorax bilaterally. No pulmonary vascular congestion. Cardiac size remains normal. PLEURA: As above. CARDIOVASCULAR: Calcific atherosclerotic changes are seen related to the thoracic aorta. And as above. OSSEOUS STRUCTURES: No significant abnormalities. VISUALIZED UPPER ABDOMEN: Normal. OTHER FINDINGS: None. IMPRESSION: Stable bilateral pulmonary infiltrates and mild bilateral pleural effusions.
--- NOTE | 2018-12-27 14:46 | CP.PCM.PN ---
Subjective - Date & Time of Evaluation Date of Evaluation: 12/27/18 Time of Evaluation: 14:45 - Subjective Subjective: PT SEEN AND EXAMINED IN ICU. PT INTUBATED BUT NOT SEDATED. PT BECAME UNRESPONSIVE AND HYPOXEMIC THUS INTUBATED AND TRANSFERED TO ICU. PT HAS LABILE BP WITH HYPOTENSION. PT ALTERED AND INTUBATED THUS UNABLE TO RESPOND TO QUESTIONS. HE DOES FOLLOW WITH EYES. PT FAILED SWALLOW EVAL. CT SHOWS MULTIFOCAL PNA PT WITH FEVERS OVER PAST 2 DAYS. GIVEN HB DROP ANTICOAGULATION HAS BEEN HELD BY ICU DOCTOR. PTS HR REMAINS ELEVATED AND IRREGULAR. Objective - Vital Signs/Intake and Output Vital Signs (last 24 hours): Temp Pulse Resp BP Pulse Ox 99 F 93 H 14 104/74 100 12/27/18 12:00 12/27/18 12:00 12/27/18 12:00 12/27/18 12:00 12/27/18 12:00 Intake and Output: 12/27/18 12/27/18 06:59 18:59 Intake Total 1809 1201 Output Total 420 260 Balance 1389 941 - Medications Medications: Current Medications Acetaminophen (Tylenol 325mg Tab) 650 mg PO Q6 PRN PRN Reason: Pain, Mild (1-3) Last Admin: 12/24/18 20:36 Dose: 650 mg Acetylcysteine (Mucomyst 10% 4ml) 2 ml IH RBID [facility] Last Admin: 12/27/18 07:57 Dose: 2 ml Docusate Sodium (Colace) 100 mg PO DAILY NELLI Last Admin: 12/23/18 10:29 Dose: 100 mg Enoxaparin Sodium (Lovenox) 110 mg SC Q12 NELLI; Protocol Last Admin: 12/27/18 08:41 Dose: 110 mg Famotidine (Pepcid) 20 mg IVP Q12 NELLI Last Admin: 12/27/18 09:08 Dose: 20 mg Metronidazole (Flagyl 500mg/100ml Ns) 100 mls @ 100 mls/hr IVPB Q12 NELLI; Protocol Last Admin: 12/27/18 08:40 Dose: 100 mls/hr Meropenem 1 gm/ Sodium (Chloride) 100 mls @ 100 mls/hr IVPB Q8 NELLI; Protocol Last Admin: 12/27/18 08:42 Dose: 100 mls/hr Vancomycin HCl 1 gm/ Sodium (Chloride) 250 mls @ 166.667 mls/hr IVPB Q12 NELLI; Protocol Last Admin: 12/27/18 08:43 Dose: 166.667 mls/hr Ipratropium [place] (Atrovent) 0.5 mg IH RQ6 NELLI Last Admin: 12/27/18 13:32 Dose: 0.5 mg Lactic Acid (Lac-Hydrin 12% Lotion (225 G)) 1 applic TOP BID NELLI Last Admin: 12/27/18 08:41 Dose: 1 applic Levalbuterol HCl (Xopenex) 1.25 mg INH RQ8 NELLI Last Admin: 12/27/18 07:58 Dose: 1.25 mg Promethazine HCl/Dextromethorphan (Phenergan Dm Syrup) 5 ml PO Q6 PRN PRN Reason: Cough and congestion Last Admin: 12/15/18 22:00 Dose: 5 ml - Labs Labs: 12/27/18 05:31 12/27/18 05:31 PT 16.8 Seconds (9.8-13.1) H 12/25/18 05:40 INR 1.5 12/25/18 05:40 APTT 43.1 Seconds (25.6-37.1) H 12/25/18 05:40 Assessment and Plan (1) SIRS (systemic inflammatory response syndrome) Status: Acute (2) Acute respiratory failure with hypoxia and hypercapnia Status: Acute (3) Multifocal pneumonia Status: Acute (4) Altered mental status Status: Acute (5) SOB (shortness of breath) Status: Acute (6) Cough Status: Acute (7) Atrial fibrillation with RVR Status: Acute (8) Hypotension (arterial) Status: Acute (9) Anemia Status: Acute (10) Edema Status: Resolved - Assessment and Plan (Free Text) Plan: PO MEDS STOPPED PT STARTED ON CARDIZEM DRIP, CURRENTLY AT 10MG/HR. MAY TITRATE NEEDED IF BP STABLE. LOPRESSOR 5 MG IVP GIVEN X 1 FOR ELEVATED HR. PTS BP ON LOW SIDE, NEED TO KEEP MAP ABOVE 65. PT GIVEN LASIX HE IS SEVERELY EDEMATOUS SP SIGNIFICANT NS BOLUSES. NEED TO OBTAIN STOOL GUAIAC TO EVAL IF HB DROP IS DUE TO DILUTION OR GIB. PT NEEDS ANTICOAG THUS DIFFERENTIATING ETIOLOGY ADEBAYO IS IMPORTANT. USE SCD FOR DVT PROPHYLAXIS CONT ICU CARE. PT DOES NOT HAVE LV FAILURE (HIS EF IS NORMAL). PT HAS MOD MR WHICH MAY BE EXACERBATED BY AFIB HIS LA IS NOT SIGNIFICANTLY ENLARGED. i DO NOT SUSPECT TRUE LEFT HEART FAILURE CONTRIBUTING TO RESP FAILURE. DISCUSSED AT LENGTH WITH ICU ATTENDING AND RN. 85 MIN TOTAL CARE TIME.
--- NOTE | 2018-12-27 15:42 | CP.PCM.PN ---
Subjective - Date & Time of Evaluation Date of Evaluation: 12/27/18 Time of Evaluation: 13:20 - Subjective Subjective: F/U Respiratory failure Awake, follows commads, intubated Objective - Vital Signs/Intake and Output Vital Signs (last 24 hours): Temp Pulse Resp BP Pulse Ox 99 F 93 H 14 104/74 100 12/27/18 12:00 12/27/18 12:00 12/27/18 12:00 12/27/18 12:00 12/27/18 12:00 Intake and Output: 12/27/18 12/27/18 06:59 18:59 Intake Total 1809 1201 Output Total 420 260 Balance 1389 941 - Medications Medications: Current Medications Acetaminophen (Tylenol 325mg Tab) 650 mg PO Q6 PRN PRN Reason: Pain, Mild (1-3) Last Admin: 12/24/18 20:36 Dose: 650 mg Acetylcysteine (Mucomyst 10% 4ml) 2 ml IH RBID NELLI Last Admin: 12/27/18 07:57 Dose: 2 ml Docusate Sodium (Colace) 100 mg PO DAILY NELLI Last Admin: 12/23/18 10:29 Dose: 100 mg Enoxaparin Sodium (Lovenox) 110 mg SC Q12 NELLI; Protocol Last Admin: 12/27/18 08:41 Dose: 110 mg Famotidine (Pepcid) 20 mg IVP Q12 NELLI Last Admin: 12/27/18 09:08 Dose: 20 mg Metronidazole (Flagyl 500mg/100ml Ns) 100 mls @ 100 mls/hr IVPB Q12 NELLI; Protocol Last Admin: 12/27/18 08:40 Dose: 100 mls/hr Meropenem 1 gm/ Sodium (Chloride) 100 mls @ 100 mls/hr IVPB Q8 NELLI; Protocol Last Admin: 12/27/18 08:42 Dose: 100 mls/hr Vancomycin HCl 1 gm/ Sodium (Chloride) 250 mls @ 166.667 mls/hr IVPB Q12 NELLI; Protocol Last Admin: 12/27/18 08:43 Dose: 166.667 mls/hr Ipratropium [place] (Atrovent) 0.5 mg IH RQ6 NELLI Last Admin: 12/27/18 13:32 Dose: 0.5 mg Lactic Acid (Lac-Hydrin 12% Lotion (225 G)) 1 applic TOP BID NELLI Last Admin: 12/27/18 08:41 Dose: 1 applic Levalbuterol HCl (Xopenex) 1.25 mg INH RQ8 [facility] Last Admin: 12/27/18 15:19 Dose: 1.25 mg Promethazine HCl/Dextromethorphan (Phenergan Dm Syrup) 5 ml PO Q6 PRN PRN Reason: Cough and congestion Last Admin: 12/15/18 22:00 Dose: 5 ml - Labs Labs: 12/27/18 05:31 12/27/18 05:31 PT 16.8 Seconds (9.8-13.1) H 12/25/18 05:40 INR 1.5 12/25/18 05:40 APTT 43.1 Seconds (25.6-37.1) H 12/25/18 05:40 - Constitutional Appears: No Acute Distress - Head Exam Head Exam: NORMAL INSPECTION - Eye Exam Eye Exam: PERRL - ENT Exam Additional comments: Intubated. OGT - Neck Exam Neck Exam: Normal Inspection - Respiratory Exam Respiratory Exam: Decreased Breath Sounds (at bases R>L), Rhonchi - Cardiovascular Exam Cardiovascular Exam: Tachycardia, Irregular Rhythm, Murmur (systolic) - GI/Abdominal Exam GI & Abdominal Exam: Soft, Normal Bowel Sounds - Exam Additional comments: Cifuentes Cath - Extremities Exam Additional comments: Edema LE's, UE's. - Back Exam Back Exam: NORMAL INSPECTION - Neurological Exam Neurological Exam: Awake Additional comments: Intubated, sedated, follows simple commands, - Skin Skin Exam: Warm Assessment and Plan (1) Aspiration pneumonia of right lung Status: Acute (2) Multifocal pneumonia Status: Acute (3) Pleural effusion, bilateral Status: Acute (4) Respiratory failure Status: Acute (5) COPD (chronic obstructive pulmonary disease) Status: Chronic (6) Atrial fibrillation with RVR Status: Acute - Assessment and Plan (Free Text) Plan: CT Chest: Stable infiltrates b/l and mild pleural effusion. Continue Lasix IV, Vanco, Merren, Xopenex and rest of Tx. Critical care time: 34 min.
[2018-12-27] MEDS ORDERED: Lactulose 10 gm/15 ml Syrup PO SCH (18:15)
[2018-12-27] MEDS ORDERED: Lactulose 10 gm/15 ml Syrup PO ONE (19:32)
[2018-12-27] MEDS ORDERED: Metoprolol 1 mg/ml Inj ONE (21:15)
[2018-12-27] MEDS ORDERED: Metoprolol 1 mg/ml Inj IVP STA (21:22)
[2018-12-28] MEDS: Ipratropium 0.02% Inhal Soln (0.5 mg/2.5 ml) UD IH SCH ×5 (00:21→19:16)
[2018-12-28] MEDS: Levalbuterol 1.25 MG/3 ML Inhal Soln UD INH SCH ×3 (00:22→15:23)
[2018-12-28] MEDS: Meropenem 1 GM in Sodium Chloride 0.9% 100 ML IVPB SCH ×3 (01:25→16:42)
[2018-12-28] MEDS ORDERED: Dexmedetomidine Hydrochloride 400 MCG in Sodium Chloride 0.9% 96 ML IV ONE (01:41)
[2018-12-28 04:53] LABS: HEMOGLOBIN 11.3 g/dL (12.0-18.0); MEAN CELL VOLUME 103.7 fl (80.0-94.0); MEAN CORPUSCULAR HEMOGLOBIN 34.6 pg (27.0-31.0); MEAN CORPUSCULAR HGB CONC 33.4 g/dL (33.0-37.0); RBC 3.28 Mil/uL (4.40-5.90); RED CELL DISTRIBUTION WIDTH 14.7 % (11.5-14.5); WHITE BLOOD COUNT 6.4 K/uL (4.8-10.8)
[2018-12-28 05:14] LABS: ABG ALLEN TEST YES; ARTERIAL BLOOD GAS HCO3 30.7 mmol/L (21-28); ARTERIAL BLOOD GAS HEMOGLOBIN 11.8 g/dL (11.7-17.4); ARTERIAL BLOOD GAS O2 CAPACITY 16.2 mL/dL (16-24); ARTERIAL BLOOD GAS O2 SAT 98.7 % (95-98); ARTERIAL BLOOD GAS PCO2 44 mm/Hg (35-45); ARTERIAL BLOOD GAS PH 7.47 (7.35-7.45); ARTERIAL BLOOD GAS PO2 88 mm/Hg (80-100); ARTERIAL BLOOD GAS TCO2 33.4 mmol/L (22-28)
[2018-12-28 05:18] LABS: ALB/GLOB RATIO 0.9 (1.0-2.1); ALBUMIN 2.4 g/dL (3.5-5.0); ALT/SGPT 55 U/L (21-72); AST/SGOT 50 U/L (17-59); BLOOD UREA NITROGEN 46 mg/dl (9-20); CALCIUM 7.9 mg/dL (8.4-10.2); GFR NON-AFRICAN AMERICAN > 60
[2018-12-28] MEDS: Acetylcysteine 10% 4 ML IH SCH ×2 (07:44→19:16)
--- NOTE | 2018-12-28 07:50 | PN ---
DATE: 12/27/2018 CRITICAL CARE PROGRESS NOTE LOCATION: The patient is in ICU, bed 430. TIME SPENT: 35 minutes. The patient is seen and evaluated at the bedside. Past medical, surgical, family and social history reviewed. SUBJECTIVE: A 73-year-old male with a history of hypertension, hyperlipidemia, chronic atrial fibrillation, chronic systolic heart failure, admitted with progressively worsening shortness of breath associated with atrial fibrillation with rapid ventricular response, intubated and placed on mechanical ventilation. Overnight on AC/PRVC rate of 12, tidal volume 500, FiO2 of 50%, on Precedex drip, observed respiratory rate 24, observed tidal volume 10, minute ventilation 7.1 liters, saturation 100%, peak airway pressure 25. PHYSICAL EXAMINATION: HEAD, EYES, EARS, NOSE AND THROAT: Pupils are reactive, conjunctivae pink. Sclerae white. NECK: Supple. Trachea central. CHEST: Bilateral breath sounds, scattered rhonchi. HEART: Rhythm irregular. No audible murmur. ABDOMEN: Bowel sounds are present. Soft. EXTREMITIES: Dependent edema, scrotal edema. CURRENT MEDICATIONS: Tylenol 650 mg every 6 hours p.r.n., levalbuterol 1.25 mg every 8 hours, Mucomyst 10% 2 mL twice daily, Atrovent 0.5 mg every 6 hours, meropenem 1 g IV every 8 hours, Flagyl 500 mg every 12 hours, promethazine with dextromethorphan 5 mL every 6 hours p.r.n., vancomycin 1 g IV every 12 hours. LABORATORY DATA: WBC 5.3, hemoglobin 13.4, hematocrit 41.9, platelet count 208. PT 16.8, INR 1.5, PTT 43.1, ABG; pH of 7.4, pCO2 of 51, pO2 of 115, saturation 96.8. On AC/PRVC rate 12, tidal volume 150, PEEP of 5. SMA-7, sodium 141, potassium 3.9, chloride 106, CO2 of 30, blood urea nitrogen 46, creatinine 1, random glucose 157, calcium 8.2. Total bilirubin 0.4, AST 39, ALT 50, alkaline phosphatase 185, total protein 5.5, albumin 2.6. Urine analysis: Negative. Vancomycin trough level 10.5. Cold agglutinin negative. Serology: Hepatitis B and C antigen and antibody, core antibody negative. Microbiology: Nasal MRSA negative. Sputum culture report pending. Urine culture, no growth. Blood culture, no growth. Chest x-ray done this morning, stable bilateral pulmonary infiltrate and bilateral pleural effusion. IMPRESSION: 1. Neurologic: Alert, awake, on Precedex, slow to respond. 2. Pulmonary: Hypoxic respiratory failure, intubated on mechanical ventilation. History of possible chronic obstructive pulmonary disease, on Duoneb and Mucomyst. 3. Cardiac: Chronic systolic hear failure, atrial fibrillation, seen by cardiology consult. Continue Lovenox 110 mg subcu every 12 hours, atrial fibrillation and rate controlled. 4. Infectious disease: Chronic obstructive pulmonary disease exacerbation, right possible pneumonia, bilateral pleural effusion, on meropenem and Flagyl. 5. Renal: Mild prerenal azotemia. Electrolytes within normal limits. 6. Endocrine: No history of diabetes or hypothyroidism. Continue Cifuentes for adequate intake and output measurement. Keep head of bed 30 degree up, Cifuentes in place, right triple-lumen catheter in place. We will change to peripherally inserted central catheter line. Emanuel Bello MD
--- NOTE | 2018-12-28 08:03 | RAD ---
Date of service: 12/28/2018 HISTORY: Pt. intubated COMPARISON: Portable chest 12/27/2018 4:14 a.m.. TECHNIQUE: 1 view obtained. FINDINGS: LUNGS: Endotracheal and orogastric tubes are not significantly changed in position. No interval change in bilateral pleural effusions and infiltrates with effusions remaining mild volume at the right and [id number] the left. No pneumothorax bilaterally. PLEURA: As above. CARDIOVASCULAR: Calcific atherosclerotic changes are seen related to the thoracic aorta. Normal cardiac size. No pulmonary vascular congestion. OSSEOUS STRUCTURES: No significant abnormalities. VISUALIZED UPPER ABDOMEN: Normal. OTHER FINDINGS: None. IMPRESSION: No interval change in bilateral pleural effusions and scattered infiltrates. Cardiac size remains normal. No definite pulmonary vascular congestion.
[2018-12-28] MEDS: Enoxaparin 120 mg Syringe SC SCH ×2 (08:16→20:40)
[2018-12-28] MEDS: metroNIDAZOLE 500mg/100ml NS 100 ML IVPB SCH ×2 (08:16→20:40)
[2018-12-28] MEDS ORDERED: Lidocaine 1% Inj (20ml) ONE (10:48)
[2018-12-28] MEDS ORDERED: Metoprolol 1 mg/ml Inj IVP ONE (11:59)
[2018-12-28] MEDS ORDERED: Metoprolol 1 mg/ml Inj ONE ×3 (12:01→23:37)
--- NOTE | 2018-12-28 12:01 | CP.PCM.PN ---
Subjective - Date & Time of Evaluation Date of Evaluation: 12/28/18 Time of Evaluation: 12:01 - Subjective Subjective: ID Note- Patient seen and examined today in ICU. remains intubated. continues to have tachycardia despite being in cardizem drip. He is awake and follows commands. Objective - Vital Signs/Intake and Output Vital Signs (last 24 hours): Temp Pulse Resp BP Pulse Ox 98.1 F 100 H 18 144/89 98 12/28/18 11:06 12/28/18 11:06 12/28/18 11:06 12/28/18 11:06 12/28/18 11:06 Intake and Output: 12/28/18 12/28/18 06:59 18:59 Intake Total 1724 385 Output Total 485 Balance 1239 385 - Medications Medications: Current Medications Acetaminophen (Tylenol 325mg Tab) 650 mg PO Q6 PRN PRN Reason: Pain, Mild (1-3) Last Admin: 12/24/18 20:36 Dose: 650 mg Acetylcysteine (Mucomyst 10% 4ml) 2 ml IH RBID NELLI Last Admin: 12/28/18 07:44 Dose: 2 ml Docusate Sodium (Colace) 100 mg PO DAILY NELLI Last Admin: 12/23/18 10:29 Dose: 100 mg Docusate Sodium (Colace Liquid) 100 mg PO TID NELLI Last Admin: 12/28/18 08:16 Dose: 100 mg Enoxaparin Sodium (Lovenox) 110 mg SC Q12 NELLI; Protocol Last Admin: 12/28/18 08:16 Dose: 110 mg Famotidine (Pepcid) 20 mg IVP Q12 NELLI Last Admin: 12/28/18 08:19 Dose: 20 mg Furosemide (Lasix) 40 mg IV ONCE NELLI Last Admin: 12/28/18 09:09 Dose: 40 mg Metronidazole (Flagyl 500mg/100ml Ns) 100 mls @ 100 mls/hr IVPB Q12 NELLI; Protocol Last Admin: 12/28/18 08:16 Dose: 100 mls/hr Meropenem 1 gm/ Sodium (Chloride) 100 mls @ 100 mls/hr IVPB Q8 NELLI; Protocol Last Admin: 12/28/18 09:12 Dose: 100 mls/hr Vancomycin HCl 1 gm/ Sodium (Chloride) 250 mls @ 166.667 mls/hr IVPB Q12 NELLI; Protocol Last Admin: 12/27/18 20:16 Dose: 166.667 mls/hr Diltiazem HCl 125 mg/ Sodium (Chloride) 125 mls @ 5 mls/hr IV .Q24H ONE; Protocol Stop: 12/29/18 08:35 Last Admin: 12/28/18 09:10 Dose: 5 mg/hr, 5 mls/hr Ipratropium [place] (Atrovent) 0.5 mg IH RQ6 NELLI Last Admin: 12/28/18 00:21 Dose: 0.5 mg Lactic Acid (Lac-Hydrin 12% Lotion (225 G)) 1 applic TOP BID NELLI Last Admin: 12/28/18 08:16 Dose: 1 applic Lactulose (Enulose) 10 gm PO ONCE NELLI Levalbuterol HCl (Xopenex) 1.25 mg INH RQ8 NELLI Last Admin: 12/28/18 07:43 Dose: 1.25 mg Promethazine HCl/Dextromethorphan (Phenergan Dm Syrup) 5 ml PO Q6 PRN PRN Reason: Cough and congestion Last Admin: 12/15/18 22:00 Dose: 5 ml - Labs Labs: - Additional Findings Additional findings: - Constitutional Appears: awake - Head Exam Head Exam: ATRAUMATIC - ENT Exam Additional comments: ET and OGT in place - Respiratory Exam Additional comments: on the vent decreased breath sounds at right base - Cardiovascular Exam Cardiovascular Exam: Tachycardia, +S1, +S2 - GI/Abdominal Exam GI & Abdominal Exam: Soft, Normal Bowel Sounds Additional comments: NT, ND - Extremities Exam Extremities Exam: Normal Inspection - Neurological Exam Neurological Exam: awake and follows commands Laboratory Results - last 72 hr 12/26/18 12/26/18 12/26/18 04:13 04:13 05:05 WBC 6.3 RBC 3.76 L Hgb 12.0 D Hct 36.9 MCV 98.1 H MCH 31.9 H MCHC 32.5 L RDW 14.8 H Plt Count 217 pCO2 43 pO2 94 HCO3 29.0 H ABG pH 7.45 ABG Total CO2 31.2 H ABG O2 Saturation 99.3 H ABG O2 Content 16.6 ABG Base Excess 5.3 H ABG Hemoglobin 12.2 ABG Carboxyhemoglobin 1.9 H POC ABG HHb (Measured) 0.7 ABG Methemoglobin 1.3 ABG O2 Capacity 16.7 [place] Test Yes A-a O2 Difference 209.0 Hgb O2 Saturation 96.2 Vent Mode A/c Mechanical Rate 12 FiO2 50.0 Tidal Volume 500 PEEP 5 Sodium 142 Potassium 3.9 Chloride 106 Carbon Dioxide 31 H Anion Gap 9 L BUN 44 H Creatinine 1.0 Est GFR ( Amer) > 60 Est GFR (Non-Af Amer) > 60 Random Glucose 134 H Calcium 8.1 L Total Bilirubin 0.5 AST 38 ALT 59 Alkaline Phosphatase 141 H Total Protein 5.4 L Albumin 2.5 L Globulin 2.9 Albumin/Globulin Ratio 0.9 L Vancomycin Trough 12/27/18 12/27/18 12/27/18 04:58 05:31 05:31 WBC 5.3 RBC 4.23 L Hgb 13.4 Hct 41.9 MCV 99.0 H MCH 31.6 H MCHC 32.0 L RDW 15.2 H Plt Count 208 pCO2 51 H pO2 115 H HCO3 30.6 H ABG pH 7.42 ABG Total CO2 34.7 H ABG O2 Saturation 99.7 H ABG O2 Content 16.8 ABG Base Excess 7.3 H ABG Hemoglobin 12.2 ABG Carboxyhemoglobin 1.8 H POC ABG HHb (Measured) 0.3 ABG Methemoglobin 1.1 ABG O2 Capacity 16.9 [place] Test Yes A-a O2 Difference 178.0 Hgb O2 Saturation 96.8 Vent Mode A/c Mechanical Rate 12 FiO2 50.0 Tidal Volume 500 PEEP 5 Sodium 141 Potassium 3.9 Chloride 106 Carbon Dioxide 30 Anion Gap 9 L BUN 46 H Creatinine 1.0 Est GFR ( Amer) > 60 Est GFR (Non-Af Amer) > 60 Random Glucose 157 H Calcium 8.2 L Total Bilirubin 0.4 AST 39 ALT 50 Alkaline Phosphatase 185 H D Total Protein 5.5 L Albumin 2.6 L Globulin 2.9 Albumin/Globulin Ratio 0.9 L Vancomycin Trough 12/27/18 12/28/18 12/28/18 07:10 04:13 04:13 WBC 6.4 RBC 3.28 L Hgb 11.3 L D Hct 34.0 L MCV 103.7 H D MCH 34.6 H MCHC 33.4 RDW 14.7 H Plt Count 200 pCO2 pO2 HCO3 ABG pH ABG Total CO2 ABG O2 Saturation ABG O2 Content ABG Base Excess ABG Hemoglobin ABG Carboxyhemoglobin POC ABG HHb (Measured) ABG Methemoglobin ABG O2 Capacity [place] Test A-a O2 Difference Hgb O2 Saturation Vent Mode Mechanical Rate FiO2 Tidal Volume PEEP Sodium 142 Potassium 4.0 Chloride 107 Carbon Dioxide 31 H Anion Gap 8 L BUN 46 H Creatinine 0.9 Est GFR ( Amer) > 60 Est GFR (Non-Af Amer) > 60 Random Glucose 117 H Calcium 7.9 L Total Bilirubin 0.5 AST 50 ALT 55 Alkaline Phosphatase 192 H Total Protein 5.3 L Albumin 2.4 L Globulin 2.9 Albumin/Globulin Ratio 0.9 L Vancomycin Trough 10.8 H 12/28/18 04:55 WBC RBC Hgb Hct MCV MCH MCHC RDW Plt Count pCO2 44 pO2 88 HCO3 30.7 H ABG pH 7.47 H ABG Total CO2 33.4 H ABG O2 Saturation 98.7 H ABG O2 Content 16.0 ABG Base Excess 7.4 H ABG Hemoglobin 11.8 ABG Carboxyhemoglobin 1.7 H POC ABG HHb (Measured) 1.3 ABG Methemoglobin 1.4 ABG O2 Capacity 16.2 [place] Test Yes A-a O2 Difference 214.0 Hgb O2 Saturation 95.7 Vent Mode A/c Mechanical Rate 12 FiO2 50.0 Tidal Volume 500 PEEP 5 Sodium Potassium Chloride Carbon Dioxide Anion Gap BUN Creatinine Est GFR ( Amer) Est GFR (Non-Af Amer) Random Glucose Calcium Total Bilirubin AST ALT Alkaline Phosphatase Total Protein Albumin Globulin Albumin/Globulin Ratio Vancomycin Trough Microbiology 12/26/18 09:00 Trachasp Gram Stain - Final 12/26/18 09:00 Trachasp Sputum Culture - Final No growth. 12/22/18 16:49 Blood-Venous Blood Culture - Final NO GROWTH AFTER 5 DAYS 12/22/18 16:49 Blood-Venous Gram Stain - Final TEST NOT PERFORMED 12/21/18 17:25 Blood-Venous Blood Culture - Final NO GROWTH AFTER 5 DAYS 12/21/18 17:25 Blood-Venous Gram Stain - Final TEST NOT PERFORMED 12/21/18 17:20 Blood-Venous Blood Culture - Final NO GROWTH AFTER 5 DAYS 12/21/18 17:20 Blood-Venous Gram Stain - Final TEST NOT PERFORMED 12/23/18 17:10 Trachasp Gram Stain - Final 12/23/18 17:10 Trachasp Sputum Culture - Final No growth. 12/22/18 07:32 Urine,Clean Catch Urine Culture - Final No Growth (<1,000 CFU/ML) 12/23/18 15:30 Nose MRSA Culture (Admit) - Final MRSA NOT DETECTED Assessment and Plan (1) Atrial fibrillation with RVR Status: Acute (2) Altered mental status Status: Acute (3) Pneumonia Status: Acute (4) Multifocal pneumonia Status: Acute - Assessment and Plan (Free Text) Assessment: A/P- 73 year old male with a.fib and now found to have altered mental status and Right sided pneumonia , developed hypercapneic resp failure yesterday afternoon , s/p intubation and transferred to ICU. Intubated aspiration pneumonia of the right lung , multifocal pneumonia afebrile normal wbc count Blood cx- neg x 3 trach asp cx- Negative x 2 hepatitis panel- neg urine legionella AG- neg mycoplasma IGM- negative PLan- continue with IV meropnem day #6 continue with IV vancomyicn day #6 keep vanco trough <15. can continue the metronidazole day #7 for anaerobic coverage as well. all labs and imaging and chart notes reviewed. Critical care time spent 40 minutes.
--- NOTE | 2018-12-28 12:01 | PCM.SURG1 ---
Surgeon's Initial Post Op Note - Surgeon's Notes Surgeon: Dallas Lane MD Brake Repairer Bus: NONE Type of Anesthesia: Local Pre-Operative Diagnosis: Poor venous access Operative Findings: US showed a patent right basilic vein Post-Operative Diagnosis: pOOR venous access Operation Performed: Double lumen picc placement right arm, 43 cm. Specimen/Specimens Removed: NONE Estimated Blood Loss: EBL {In ML}: 2 Blood Products Given: N/A Drains Used: No Drains Post-Op Condition: Poor Date of Surgery/Procedure: 12/28/18 Time of Surgery/Procedure: 10:40
--- NOTE | 2018-12-28 13:36 | VASCULAR ---
PROCEDURE: Date of procedure: 12/28/2018 Procedure: 1. Placement of a right arm PICC with ultrasound and fluoroscopic guidance, CPT 10879 2. PICC tip confirmation with spot radiograph and is in the superior vena cava Medications: 3cc 1 percent lidocaine Total Fluoro time: 5.9 Seconds Radiation: 1.22 MGy EBL: 2 cc HISTORY: Poor venous access TECHNIQUE: Following informed consent and procedure time-out, the patient was placed supine on the interventional table and the right arm prepped and draped in the usual sterile fashion. Ultrasound showed a patent and compressible right basilic vein. After the skin was anesthetized with lidocaine, the basilic vein was accessed with micro micropuncture technique using ultrasound guidance. A guidewire was then advanced under fluoroscopic guidance into the superior vena cava. An image documenting ultrasound guidance for vascular access was permanently saved. The length of the double-lumen 5 [place] PICC was trimmed to 43 centimeters and advanced through a peel-away sheath. The PICC was position with tip of PICC confirm a spot radiograph the superior vena cava. The PICC was secured to the patient's skin. The PICC was flushed. A biopatch and sterile dressing was applied. IMPRESSION: Placement of a double-lumen 5 [place] PICC trimmed to 43 centimeters via right basilic vein. The tip of the PICC is confirmed with spot radiograph and is in the superior vena cava.
--- NOTE | 2018-12-28 13:49 | CP.PCM.PN ---
Subjective - Date & Time of Evaluation Date of Evaluation: 12/28/18 Time of Evaluation: 12:50 - Subjective Subjective: F/U Respiratory failure. Pt awake, no A/D, follows simple commands, likely squeezing hands. Objective - Vital Signs/Intake and Output Vital Signs (last 24 hours): Temp Pulse Resp BP Pulse Ox 98.2 F 165 H 15 151/96 H 100 12/28/18 12:00 12/28/18 12:02 12/28/18 12:00 12/28/18 12:02 12/28/18 12:00 Intake and Output: 12/28/18 12/28/18 06:59 18:59 Intake Total 1724 865 Output Total 485 Balance 1239 865 - Medications Medications: Current Medications Acetaminophen (Tylenol 325mg Tab) 650 mg PO Q6 PRN PRN Reason: Pain, Mild (1-3) Last Admin: 12/24/18 20:36 Dose: 650 mg Acetylcysteine (Mucomyst 10% 4ml) 2 ml IH RBID NELLI Last Admin: 12/28/18 07:44 Dose: 2 ml Docusate Sodium (Colace) 100 mg PO DAILY NELLI Last Admin: 12/23/18 10:29 Dose: 100 mg Docusate Sodium (Colace Liquid) 100 mg PO TID NELLI Last Admin: 12/28/18 12:46 Dose: Not Given Enoxaparin Sodium (Lovenox) 110 mg SC Q12 NELLI; Protocol Last Admin: 12/28/18 08:16 Dose: 110 mg Famotidine (Pepcid) 20 mg IVP Q12 NELLI Last Admin: 12/28/18 08:19 Dose: 20 mg Furosemide (Lasix) 40 mg IV ONCE NELLI Last Admin: 12/28/18 09:09 Dose: 40 mg Metronidazole (Flagyl 500mg/100ml Ns) 100 mls @ 100 mls/hr IVPB Q12 NELLI; Protocol Last Admin: 12/28/18 08:16 Dose: 100 mls/hr Meropenem 1 gm/ Sodium (Chloride) 100 mls @ 100 mls/hr IVPB Q8 NELLI; Protocol Last Admin: 12/28/18 09:12 Dose: 100 mls/hr Vancomycin HCl 1 gm/ Sodium (Chloride) 250 mls @ 166.667 mls/hr IVPB Q12 NELLI; Protocol Last Admin: 12/28/18 10:08 Dose: 166.667 mls/hr Diltiazem HCl 125 mg/ Sodium (Chloride) 125 mls @ 5 mls/hr IV .Q24H ONE; Protocol Stop: 12/29/18 08:35 Last Admin: 12/28/18 09:10 Dose: 5 mg/hr, 5 mls/hr Ipratropium [place] (Atrovent) 0.5 mg IH RQ6 [facility] Last Admin: 12/28/18 13:11 Dose: 0.5 mg Lactic Acid (Lac-Hydrin 12% Lotion (225 G)) 1 applic TOP BID NELLI Last Admin: 12/28/18 08:16 Dose: 1 applic Lactulose (Enulose) 10 gm PO ONCE NELLI Levalbuterol HCl (Xopenex) 1.25 mg INH RQ8 [facility] Last Admin: 12/28/18 07:43 Dose: 1.25 mg Metoprolol Tartrate (Lopressor) 6.25 mg PO Q12 NELLI Promethazine HCl/Dextromethorphan (Phenergan Dm Syrup) 5 ml PO Q6 PRN PRN Reason: Cough and congestion Last Admin: 12/15/18 22:00 Dose: 5 ml - Labs Labs: 12/28/18 04:13 12/28/18 04:13 PT 16.8 Seconds (9.8-13.1) H 12/25/18 05:40 INR 1.5 12/25/18 05:40 APTT 43.1 Seconds (25.6-37.1) H 12/25/18 05:40 - Constitutional Appears: Other (intubated) - Head Exam Head Exam: NORMAL INSPECTION - Eye Exam Eye Exam: PERRL - ENT Exam Additional comments: Intubated. OGT - Neck Exam Neck Exam: Normal Inspection - Respiratory Exam Respiratory Exam: Decreased Breath Sounds (at bases R.L), Rhonchi - Cardiovascular Exam Cardiovascular Exam: Tachycardia, Irregular Rhythm, Murmur (systolic) - GI/Abdominal Exam GI & Abdominal Exam: Soft, Normal Bowel Sounds - Exam Additional comments: Cifuentes cath - Extremities Exam Additional comments: Edema UE's and LE's - Back Exam Back Exam: NORMAL INSPECTION - Neurological Exam Neurological Exam: Awake Additional comments: Intubated, follows simple commands - Skin Skin Exam: Warm Assessment and Plan (1) Aspiration pneumonia of right lung Status: Acute (2) Multifocal pneumonia Status: Acute (3) Pleural effusion, bilateral Status: Acute (4) Respiratory failure Status: Resolved (5) COPD (chronic obstructive pulmonary disease) Status: Chronic (6) Atrial fibrillation with RVR Status: Acute - Assessment and Plan (Free Text) Plan: Continue ventilatory support, Pt on Cardizem drip, add Lasix, continue Merren, Vanco and rest of Tx. Critical care time: 32 min.
[2018-12-28] MEDS ORDERED: Metoprolol 1 mg/ml Inj IVP STA ×2 (14:46→23:38)
--- NOTE | 2018-12-28 19:20 | CP.PCM.PN ---
Subjective - Date & Time of Evaluation Date of Evaluation: 12/28/18 Time of Evaluation: 19:00 - Subjective Subjective: CARDIOLOGY FOR YUNIER Patient remains intubated. maximum cardizem. Heart rate currently 145 Objective - Vital Signs/Intake and Output Vital Signs (last 24 hours): Temp Pulse Resp BP Pulse Ox 98.1 F 143 H 19 143/88 100 12/28/18 16:00 12/28/18 18:00 12/28/18 18:00 12/28/18 18:00 12/28/18 18:00 Intake and Output: 12/28/18 12/29/18 18:59 06:59 Intake Total 1839 Output Total 2000 Balance -161 - Medications Medications: Current Medications Acetaminophen (Tylenol 325mg Tab) 650 mg PO Q6 PRN PRN Reason: Pain, Mild (1-3) Last Admin: 12/24/18 20:36 Dose: 650 mg Acetylcysteine (Mucomyst 10% 4ml) 2 ml IH RBID NELLI Last Admin: 12/28/18 19:16 Dose: 2 ml Docusate Sodium (Colace) 100 mg PO DAILY NELLI Last Admin: 12/23/18 10:29 Dose: 100 mg Docusate Sodium (Colace Liquid) 100 mg PO TID NELLI Last Admin: 12/28/18 16:42 Dose: Not Given Enoxaparin Sodium (Lovenox) 110 mg SC Q12 NELLI; Protocol Last Admin: 12/28/18 08:16 Dose: 110 mg Famotidine (Pepcid) 20 mg IVP Q12 NELLI Last Admin: 12/28/18 08:19 Dose: 20 mg Furosemide (Lasix) 40 mg IV ONCE NELLI Last Admin: 12/28/18 09:09 Dose: 40 mg Metronidazole (Flagyl 500mg/100ml Ns) 100 mls @ 100 mls/hr IVPB Q12 NELLI; Protocol Last Admin: 12/28/18 08:16 Dose: 100 mls/hr Meropenem 1 gm/ Sodium (Chloride) 100 mls @ 100 mls/hr IVPB Q8 NELLI; Protocol Last Admin: 12/28/18 16:42 Dose: 100 mls/hr Vancomycin HCl 1 gm/ Sodium (Chloride) 250 mls @ 166.667 mls/hr IVPB Q12 NELLI; Protocol Last Admin: 12/28/18 10:08 Dose: 166.667 mls/hr Diltiazem HCl 125 mg/ Sodium (Chloride) 125 mls @ 5 mls/hr IV .Q24H ONE; Protocol Stop: 12/29/18 08:35 Last Titration: 12/28/18 16:00 Dose: 15 mg/hr, 15 mls/hr Ipratropium [place] (Atrovent) 0.5 mg IH RQ6 [facility] Last Admin: 12/28/18 19:16 Dose: 0.5 mg Lactic Acid (Lac-Hydrin 12% Lotion (225 G)) 1 applic TOP BID [facility] Last Admin: 12/28/18 16:42 Dose: 1 applic Lactulose (Enulose) 10 gm PO ONCE NELLI Levalbuterol HCl (Xopenex) 1.25 mg INH RQ8 [facility] Last Admin: 12/28/18 15:23 Dose: 1.25 mg Metoprolol Tartrate (Lopressor) 25 mg PO Q12 [facility] Promethazine HCl/Dextromethorphan (Phenergan Dm Syrup) 5 ml PO Q6 PRN PRN Reason: Cough and congestion Last Admin: 12/15/18 22:00 Dose: 5 ml - Labs Labs: 12/28/18 04:13 12/28/18 04:13 PT 16.8 Seconds (9.8-13.1) H 12/25/18 05:40 INR 1.5 12/25/18 05:40 APTT 43.1 Seconds (25.6-37.1) H 12/25/18 05:40 - Constitutional Appears: Toxic - Head Exam Head Exam: NORMAL INSPECTION - Eye Exam Eye Exam: Normal appearance - ENT Exam ENT Exam: Mucous Membranes Moist - Neck Exam Neck Exam: Normal Inspection - Respiratory Exam Respiratory Exam: Decreased Breath Sounds - Cardiovascular Exam Cardiovascular Exam: Tachycardia, Irregular Rhythm - GI/Abdominal Exam GI & Abdominal Exam: Normal Bowel Sounds - Rectal Exam Rectal Exam: Deferred - Extremities Exam Extremities Exam: Pedal Edema - Back Exam Back Exam: NORMAL INSPECTION - Skin Skin Exam: Normal Color Assessment and Plan (1) Atrial fibrillation with RVR Assessment & Plan: will need improved rate control. on maximum cardizem drip. will give digoxin 0.5 mg IV now. can start oral opressor now and will titrate. continue lovenox Status: Acute
[2018-12-28] MEDS ORDERED: Digoxin 500 mcg/2ml (0.5 mg/2ml) Inj IVP ONE (19:30)
[2018-12-28] MEDS: Artificial Tears Opht Soln OU PRN (20:47)
[2018-12-28] MEDS: Dexmedetomidine Hydrochloride 400 MCG in Sodium Chloride 0.9% 96 ML IV ONE (21:52)
--- NOTE | 2018-12-28 23:22 | CP.PCM.PN ---
Subjective - Date & Time of Evaluation Date of Evaluation: 12/28/18 Time of Evaluation: 17:15 - Subjective Subjective: No New complaint. Improving Objective - Vital Signs/Intake and Output Vital Signs (last 24 hours): Temp Pulse Resp BP Pulse Ox 99.1 F 118 H 17 158/92 H 100 12/28/18 20:00 12/28/18 21:00 12/28/18 21:00 12/28/18 21:00 12/28/18 21:00 Intake and Output: 12/28/18 12/29/18 18:59 06:59 Intake Total 1839 697.3 Output Total 1999 Balance -161 697.3 - Medications Medications: Current Medications Acetaminophen (Tylenol 325mg Tab) 650 mg PO Q6 PRN PRN Reason: Pain, Mild (1-3) Last Admin: 12/24/18 20:36 Dose: 650 mg Acetylcysteine (Mucomyst 10% 4ml) 2 ml IH RBID NELLI Last Admin: 12/28/18 19:16 Dose: 2 ml Artificial Tears (Artificial Tears) 2 drop OU Q4 PRN PRN Reason: Dry eyes Last Admin: 12/28/18 20:47 Dose: 2 drop Docusate Sodium (Colace) 100 mg PO DAILY NELLI Last Admin: 12/23/18 10:29 Dose: 100 mg Docusate Sodium (Colace Liquid) 100 mg PO TID NELLI Last Admin: 12/28/18 16:42 Dose: Not Given Enoxaparin Sodium (Lovenox) 110 mg SC Q12 NELLI; Protocol Last Admin: 12/28/18 20:40 Dose: 110 mg Famotidine (Pepcid) 20 mg IVP Q12 NELLI Last Admin: 12/28/18 20:47 Dose: 20 mg Furosemide (Lasix) 40 mg IV ONCE NELLI Last Admin: 12/28/18 09:09 Dose: 40 mg Metronidazole (Flagyl 500mg/100ml Ns) 100 mls @ 100 mls/hr IVPB Q12 NELLI; Protocol Last Admin: 12/28/18 20:40 Dose: 100 mls/hr Meropenem 1 gm/ Sodium (Chloride) 100 mls @ 100 mls/hr IVPB Q8 NELLI; Protocol Last Admin: 12/28/18 16:42 Dose: 100 mls/hr Vancomycin HCl 1 gm/ Sodium (Chloride) 250 mls @ 166.667 mls/hr IVPB Q12 NELLI; Protocol Last Admin: 12/28/18 21:51 Dose: 166.667 mls/hr Diltiazem HCl 125 mg/ Sodium (Chloride) 125 mls @ 5 mls/hr IV .Q24H ONE; Protocol Stop: 12/29/18 08:35 Last Admin: 12/28/18 20:41 Dose: 15 mg/hr, 15 mls/hr Dexmedetomidine HCl 400 mcg/ (Sodium Chloride) 100 mls @ 8.5 mls/hr IV .[id number] ONE; Protocol Stop: 12/29/18 09:19 Last Titration: 12/28/18 23:15 Dose: 0.5 mcg/kg/hr, 14.17 mls/hr Ipratropium [place] (Atrovent) 0.5 mg IH RQ6 NELLI Last Admin: 12/28/18 19:16 Dose: 0.5 mg Lactic Acid (Lac-Hydrin 12% Lotion (225 G)) 1 applic TOP BID NELLI Last Admin: 12/28/18 16:42 Dose: 1 applic Lactulose (Enulose) 10 gm PO ONCE NELLI Levalbuterol HCl (Xopenex) 1.25 mg INH RQ8 NELLI Last Admin: 12/28/18 15:23 Dose: 1.25 mg Metoprolol Tartrate (Lopressor) 25 mg PO Q12 NELLI Last Admin: 12/28/18 20:44 Dose: Not Given Promethazine HCl/Dextromethorphan (Phenergan Dm Syrup) 5 ml PO Q6 PRN PRN Reason: Cough and congestion Last Admin: 12/15/18 22:00 Dose: 5 ml - Labs Labs: 12/28/18 04:13 12/28/18 04:13 PT 16.8 Seconds (9.8-13.1) H 12/25/18 05:40 INR 1.5 12/25/18 05:40 APTT 43.1 Seconds (25.6-37.1) H 12/25/18 05:40 Assessment and Plan (1) Acute respiratory failure with hypoxia and hypercapnia Assessment & Plan: MV Status: Acute (2) Atrial fibrillation with RVR Status: Acute (3) Multifocal pneumonia Status: Acute (4) COPD (chronic obstructive pulmonary disease) Status: Chronic (5) CHF (congestive heart failure) Status: Acute
--- NOTE | 2018-12-28 23:22 | CP.PCM.PN ---
Subjective - Date & Time of Evaluation Date of Evaluation: 12/27/18 Time of Evaluation: 17:10 - Subjective Subjective: No new complaint. Objective - Vital Signs/Intake and Output Vital Signs (last 24 hours): Temp Pulse Resp BP Pulse Ox 99.1 F 118 H 17 158/92 H 100 12/28/18 20:00 12/28/18 21:00 12/28/18 21:00 12/28/18 21:00 12/28/18 21:00 Intake and Output: 12/28/18 12/29/18 18:59 06:59 Intake Total 1839 697.3 Output Total 1999 Balance -161 697.3 - Medications Medications: Current Medications Acetaminophen (Tylenol 325mg Tab) 650 mg PO Q6 PRN PRN Reason: Pain, Mild (1-3) Last Admin: 12/24/18 20:36 Dose: 650 mg Acetylcysteine (Mucomyst 10% 4ml) 2 ml IH RBID NELLI Last Admin: 12/28/18 19:16 Dose: 2 ml Artificial Tears (Artificial Tears) 2 drop OU Q4 PRN PRN Reason: Dry eyes Last Admin: 12/28/18 20:47 Dose: 2 drop Docusate Sodium (Colace) 100 mg PO DAILY NELLI Last Admin: 12/23/18 10:29 Dose: 100 mg Docusate Sodium (Colace Liquid) 100 mg PO TID NELLI Last Admin: 12/28/18 16:42 Dose: Not Given Enoxaparin Sodium (Lovenox) 110 mg SC Q12 NELLI; Protocol Last Admin: 12/28/18 20:40 Dose: 110 mg Famotidine (Pepcid) 20 mg IVP Q12 NELLI Last Admin: 12/28/18 20:47 Dose: 20 mg Furosemide (Lasix) 40 mg IV ONCE NELLI Last Admin: 12/28/18 09:09 Dose: 40 mg Metronidazole (Flagyl 500mg/100ml Ns) 100 mls @ 100 mls/hr IVPB Q12 NELLI; Protocol Last Admin: 12/28/18 20:40 Dose: 100 mls/hr Meropenem 1 gm/ Sodium (Chloride) 100 mls @ 100 mls/hr IVPB Q8 NELLI; Protocol Last Admin: 12/28/18 16:42 Dose: 100 mls/hr Vancomycin HCl 1 gm/ Sodium (Chloride) 250 mls @ 166.667 mls/hr IVPB Q12 NELLI; Protocol Last Admin: 12/28/18 21:51 Dose: 166.667 mls/hr Diltiazem HCl 125 mg/ Sodium (Chloride) 125 mls @ 5 mls/hr IV .Q24H ONE; Protocol Stop: 12/29/18 08:35 Last Admin: 12/28/18 20:41 Dose: 15 mg/hr, 15 mls/hr Dexmedetomidine HCl 400 mcg/ (Sodium Chloride) 100 mls @ 8.5 mls/hr IV .[id number] ONE; Protocol Stop: 12/29/18 09:19 Last Titration: 12/28/18 23:15 Dose: 0.5 mcg/kg/hr, 14.17 mls/hr Ipratropium [place] (Atrovent) 0.5 mg IH RQ6 NELLI Last Admin: 12/28/18 19:16 Dose: 0.5 mg Lactic Acid (Lac-Hydrin 12% Lotion (225 G)) 1 applic TOP BID NELLI Last Admin: 12/28/18 16:42 Dose: 1 applic Lactulose (Enulose) 10 gm PO ONCE NELLI Levalbuterol HCl (Xopenex) 1.25 mg INH RQ8 NELLI Last Admin: 12/28/18 15:23 Dose: 1.25 mg Metoprolol Tartrate (Lopressor) 25 mg PO Q12 NELLI Last Admin: 12/28/18 20:44 Dose: Not Given Promethazine HCl/Dextromethorphan (Phenergan Dm Syrup) 5 ml PO Q6 PRN PRN Reason: Cough and congestion Last Admin: 12/15/18 22:00 Dose: 5 ml - Labs Labs: 12/28/18 04:13 12/28/18 04:13 PT 16.8 Seconds (9.8-13.1) H 12/25/18 05:40 INR 1.5 12/25/18 05:40 APTT 43.1 Seconds (25.6-37.1) H 12/25/18 05:40 Assessment and Plan (1) Acute respiratory failure with hypoxia and hypercapnia Assessment & Plan: ON MV Status: Acute (2) Atrial fibrillation with RVR Status: Acute (3) Multifocal pneumonia Status: Acute (4) COPD (chronic obstructive pulmonary disease) Status: Chronic (5) CHF (congestive heart failure) Status: Acute - Assessment and Plan (Free Text) Plan: Continue current care as per Marketing Information Analyst
--- NOTE | 2018-12-28 23:22 | CP.PCM.PN ---
Subjective - Date & Time of Evaluation Date of Evaluation: 12/26/18 Time of Evaluation: 15:00 - Subjective Subjective: No New complaint Objective - Vital Signs/Intake and Output Vital Signs (last 24 hours): Temp Pulse Resp BP Pulse Ox 99.1 F 118 H 17 158/92 H 100 12/28/18 20:00 12/28/18 21:00 12/28/18 21:00 12/28/18 21:00 12/28/18 21:00 Intake and Output: 12/28/18 12/29/18 18:59 06:59 Intake Total 1839 697.3 Output Total 1999 Balance -161 697.3 - Medications Medications: Current Medications Acetaminophen (Tylenol 325mg Tab) 650 mg PO Q6 PRN PRN Reason: Pain, Mild (1-3) Last Admin: 12/24/18 20:36 Dose: 650 mg Acetylcysteine (Mucomyst 10% 4ml) 2 ml IH RBID NELLI Last Admin: 12/28/18 19:16 Dose: 2 ml Artificial Tears (Artificial Tears) 2 drop OU Q4 PRN PRN Reason: Dry eyes Last Admin: 12/28/18 20:47 Dose: 2 drop Docusate Sodium (Colace) 100 mg PO DAILY NELLI Last Admin: 12/23/18 10:29 Dose: 100 mg Docusate Sodium (Colace Liquid) 100 mg PO TID NELLI Last Admin: 12/28/18 16:42 Dose: Not Given Enoxaparin Sodium (Lovenox) 110 mg SC Q12 NELLI; Protocol Last Admin: 12/28/18 20:40 Dose: 110 mg Famotidine (Pepcid) 20 mg IVP Q12 NELLI Last Admin: 12/28/18 20:47 Dose: 20 mg Furosemide (Lasix) 40 mg IV ONCE NELLI Last Admin: 12/28/18 09:09 Dose: 40 mg Metronidazole (Flagyl 500mg/100ml Ns) 100 mls @ 100 mls/hr IVPB Q12 NELLI; Protocol Last Admin: 12/28/18 20:40 Dose: 100 mls/hr Meropenem 1 gm/ Sodium (Chloride) 100 mls @ 100 mls/hr IVPB Q8 NELLI; Protocol Last Admin: 12/28/18 16:42 Dose: 100 mls/hr Vancomycin HCl 1 gm/ Sodium (Chloride) 250 mls @ 166.667 mls/hr IVPB Q12 NELLI; Protocol Last Admin: 12/28/18 21:51 Dose: 166.667 mls/hr Diltiazem HCl 125 mg/ Sodium (Chloride) 125 mls @ 5 mls/hr IV .Q24H ONE; Protocol Stop: 12/29/18 08:35 Last Admin: 12/28/18 20:41 Dose: 15 mg/hr, 15 mls/hr Dexmedetomidine HCl 400 mcg/ (Sodium Chloride) 100 mls @ 8.5 mls/hr IV .[id number] ONE; Protocol Stop: 12/29/18 09:19 Last Titration: 12/28/18 23:15 Dose: 0.5 mcg/kg/hr, 14.17 mls/hr Ipratropium [place] (Atrovent) 0.5 mg IH RQ6 NELLI Last Admin: 12/28/18 19:16 Dose: 0.5 mg Lactic Acid (Lac-Hydrin 12% Lotion (225 G)) 1 applic TOP BID NELLI Last Admin: 12/28/18 16:42 Dose: 1 applic Lactulose (Enulose) 10 gm PO ONCE NELLI Levalbuterol HCl (Xopenex) 1.25 mg INH RQ8 NELLI Last Admin: 12/28/18 15:23 Dose: 1.25 mg Metoprolol Tartrate (Lopressor) 25 mg PO Q12 NELLI Last Admin: 12/28/18 20:44 Dose: Not Given Promethazine HCl/Dextromethorphan (Phenergan Dm Syrup) 5 ml PO Q6 PRN PRN Reason: Cough and congestion Last Admin: 12/15/18 22:00 Dose: 5 ml - Labs Labs: 12/28/18 04:13 12/28/18 04:13 PT 16.8 Seconds (9.8-13.1) H 12/25/18 05:40 INR 1.5 12/25/18 05:40 APTT 43.1 Seconds (25.6-37.1) H 12/25/18 05:40 Assessment and Plan (1) Acute respiratory failure with hypoxia and hypercapnia Status: Acute (2) Multifocal pneumonia Status: Acute (3) COPD (chronic obstructive pulmonary disease) Status: Chronic (4) CHF (congestive heart failure) Status: Acute - Assessment and Plan (Free Text) Plan: Continue current Care
--- NOTE | 2018-12-28 23:22 | PN ---
DATE: 12/28/2018 CRITICAL CARE PROGRESS NOTE LOCATION: The patient in ICU, bed 430. Time spent 40 minutes. The patient is seen and evaluated at the bedside. Case was discussed in multidisciplinary ICU rounds this morning. SUBJECTIVE: A 73-year-old male with a history significant for hypertension, hyperlipidemia, chronic atrial fibrillation, chronic systolic heart failure. Admitted with shortness of breath, progressively worse. Noted to be in AFib with rapid ventricular response. Required intubation and placed on mechanical ventilation. Overnight on Precedex drip, on AC/PRVC rate 12, tidal volume of 500, FiO2 50%, PEEP of 5, observed rate 17, observed tidal volume 510, minute ventilation 9 L, oxygen saturation 100%, peak airway pressure 14, end-tidal CO2 of 39. PHYSICAL EXAMINATION: HEAD, EYES, EARS, NOSE AND THROAT: Pupils are reactive. Conjunctivae pink. Sclerae white. NECK: Supple. Trachea central. CHEST: Bilateral breath sounds. Scattered rhonchi bilaterally. Fine crepitations at the bases. HEART: Rhythm irregular. No audible murmur. ABDOMEN: Bowel sounds are present. Soft. GENITOURINARY: Scrotal edema 3+. EXTREMITIES: 2+ edema. NEUROLOGIC: Alert and awake. Able to follow commands. CURRENT MEDICATIONS: Tylenol 650 mg every 6 hours p.r.n., levalbuterol 1.25 mg every 8 hours, Mucomyst 10% 2 mL twice daily, Atrovent 0.5 mg every 6 hours, meropenem 1 g IV every 8 hours, Flagyl 500 mg every 12 hours, promethazine with dextromethorphan 5 mL every 6 hours p.r.n., vancomycin 1 g IV every 12 hours. LABORATORY DATA: WBC 6.4, hemoglobin 11.3, hematocrit 34, platelet count 200. PT 16.8, INR 1.5, PTT 43.1. D-dimer is 608. ABG, pH of 7.47, pCO2 of 44, pO2 of 88, saturation 98.7 on AC 12, 500, 50%, PEEP of 5. SMA-7: Sodium 142, potassium 4, chloride 107, CO2 of 31, blood urea nitrogen 46, creatinine 0.9, random glucose 170, calcium 7.9. Total bilirubin 0.5, AST 15, ALT 55, alkaline phosphatase 192, total protein of 5.3, albumin 2.4, globulin 2.9, A/G ratio 0.9. Urinalysis negative. Vancomycin trough level 10.8. Immunology: Cold agglutinin negative. Serology: Hepatitis A IgM antibody negative. Hepatitis B surface antigen negative. Hepatitis B core IgM antibody negative. Hepatitis C antibody negative. Urine Legionella antigen negative. Mycoplasma pneumonia IgM antibody negative. Microbiology: Tracheal aspirate culture pending. Sputum culture, no growth. Nasal smear MRSA negative. Blood culture, no growth. Chest x-ray from this morning, endotracheal tube in place. No interval change in bilateral pleural effusion, scattered infiltrates, more on the left than right. IMPRESSION: 1. Neurologic: Alert and awake. Off Precedex. Responds appropriately. Resolving septic hypoxic encephalopathy. 2. Pulmonary: Hypoxic respiratory failure, intubated on mechanical ventilation. Possible chronic obstructive pulmonary disease, on DuoNeb and Mucomyst. 3. Cardiac: Chronic systolic heart failure, atrial fibrillation with rapid ventricular response, on Cardizem drip and on Lovenox 100 mg subcutaneously every 12 hours. Significant fluid overload. We will add 40 mg of Lasix to reduce the pulmonary congestion and bilateral pleural effusion, facilitate extubation. 4. Infectious Disease: Chronic obstructive pulmonary disease exacerbation, possible pneumonia, bilateral pleural effusion, on meropenem and Flagyl. 5. Renal: Mild prerenal azotemia. Electrolytes within normal limit. 6. Endocrine: No history of diabetes mellitus type 2 or hypothyroidism. PLAN: Continue Cifuentes for adequate intake and output measurement. Keep head of bed 30 [address] up. [address] in place. Change right femoral triple-lumen catheter to PICC line. Continue spontaneous breathing trial and extubation as tolerated. Emanuel Bello MD
[2018-12-29] MEDS: Meropenem 1 GM in Sodium Chloride 0.9% 100 ML IVPB SCH ×3 (00:17→16:16)
[2018-12-29] MEDS: Ipratropium 0.02% Inhal Soln (0.5 mg/2.5 ml) UD IH SCH ×6 (00:38→23:35)
[2018-12-29] MEDS: Levalbuterol 1.25 MG/3 ML Inhal Soln UD INH SCH ×4 (00:38→23:35)
[2018-12-29 05:30] LABS: ABG ALLEN TEST YES; ARTERIAL BLOOD GAS HCO3 32.7 mmol/L (21-28); ARTERIAL BLOOD GAS HEMOGLOBIN 10.1 g/dL (11.7-17.4); ARTERIAL BLOOD GAS O2 SAT 99.8 % (95-98); ARTERIAL BLOOD GAS PCO2 48 mm/Hg (35-45); ARTERIAL BLOOD GAS PH 7.47 (7.35-7.45); ARTERIAL BLOOD GAS PO2 118 mm/Hg (80-100); ARTERIAL BLOOD GAS TCO2 36.4 mmol/L (22-28)
[2018-12-29 05:47] LABS: HEMOGLOBIN 9.9 g/dL (12.0-18.0); MEAN CORPUSCULAR HEMOGLOBIN 32.5 pg (27.0-31.0); MEAN CORPUSCULAR HGB CONC 32.9 g/dL (33.0-37.0); RBC 3.04 Mil/uL (4.40-5.90); RED CELL DISTRIBUTION WIDTH 14.9 % (11.5-14.5); WHITE BLOOD COUNT 7.3 K/uL (4.8-10.8)
[2018-12-29 06:05] LABS: MEAN CELL VOLUME 98.8 fl (80.0-94.0)
[2018-12-29 06:09] LABS: BLOOD UREA NITROGEN 44 mg/dl (9-20); GFR NON-AFRICAN AMERICAN > 60
[2018-12-29] MEDS: Dexmedetomidine Hydrochloride 400 MCG in Sodium Chloride 0.9% 96 ML IV ONE (06:10)
[2018-12-29] MEDS: Acetylcysteine 10% 4 ML IH SCH ×2 (07:30→19:01)
--- NOTE | 2018-12-29 08:06 | RAD ---
Date of service: 12/29/2018 PROCEDURE: CHEST RADIOGRAPH, 1 VIEW HISTORY: Intubated COMPARISON: 12/28/2018 FINDINGS: LUNGS: Opacity left inferior hemithorax overall increased inhomogeneous density-interval increasing left pleural effusion with complete interval increased compressive atelectasis here inferred. Concomitant left basal infiltrate not excluded. Right pleural effusion similar some potential loculation along the lateral right hemithorax possible no change in appearance. Coalescing patchy airspace opacities right mid lung zone accentuated at right base-similar in appearance Endotracheal tube tip at superior clavicle level-current study slightly apical lordotic but less so than before. Consider advancement 1.5 to 2 cm. PLEURA: Bilateral pleural effusions-that on the left has increased and on the right is similar-description in above section. No interval pneumothorax appreciated. CARDIOVASCULAR: There is presence of aortic atherosclerotic calcification on x-ray. Mild cardiomegaly-similar. Concomitant pulmonary venous congestion suspect probably similar and/or slightly increased. Right-sided PICC line tip superior vena cava-an interval change. OSSEOUS STRUCTURES: Thoracic spondylosis. Right shoulder arthrosis-left shoulder excluded from current field of view. VISUALIZED UPPER ABDOMEN: Nasogastric tube inserted-tip near stomach. OTHER FINDINGS: None. IMPRESSION: Interval increased left pleural effusion-associated compressive atelectasis inferred. Other findings as above. Endotracheal tube tip at superior clavicle level-current study slightly apical lordotic but less so than before. Consider advancement 1.5 to 2 cm. Interval insertion right sided PICC line tip superior vena cava no pneumothorax noted Comments: Study marked for PA review .
[2018-12-29] MEDS: metroNIDAZOLE 500mg/100ml NS 100 ML IVPB SCH ×2 (09:12→20:43)
[2018-12-29] MEDS: Enoxaparin 120 mg Syringe SC SCH ×2 (09:13→20:41)
--- NOTE | 2018-12-29 09:33 | CP.PCM.PN ---
Subjective - Date & Time of Evaluation Date of Evaluation: 12/29/18 Time of Evaluation: 09:33 - Subjective Subjective: ID Note- Pt. seen and examined today in ICU. remains on the vent. tachycardia better today. Objective - Vital Signs/Intake and Output Vital Signs (last 24 hours): Temp Pulse Resp BP Pulse Ox 99.1 F 100 H 12 107/66 100 12/29/18 08:00 12/29/18 09:14 12/29/18 08:00 12/29/18 09:16 12/29/18 08:00 Intake and Output: 12/29/18 12/29/18 06:59 18:59 Intake Total 1857.9 53.6 Output Total 1100 Balance 757.9 53.6 - Medications Medications: Current Medications Acetaminophen (Tylenol 325mg Tab) 650 mg PO Q6 PRN PRN Reason: Pain, Mild (1-3) Last Admin: 12/24/18 20:36 Dose: 650 mg Acetylcysteine (Mucomyst 10% 4ml) 2 ml IH RBID NELLI Last Admin: 12/29/18 07:30 Dose: 2 ml Artificial Tears (Artificial Tears) 2 drop OU Q4 PRN PRN Reason: Dry eyes Last Admin: 12/28/18 20:47 Dose: 2 drop Docusate Sodium (Colace) 100 mg PO DAILY NELLI Last Admin: 12/23/18 10:29 Dose: 100 mg Docusate Sodium (Colace Liquid) 100 mg PO BID NELLI Last Admin: 12/29/18 09:12 Dose: 100 mg Famotidine (Pepcid) 20 mg IVP Q12 NELLI Last Admin: 12/29/18 09:16 Dose: 20 mg Metronidazole (Flagyl 500mg/100ml Ns) 100 mls @ 100 mls/hr IVPB Q12 NELLI; Protocol Last Admin: 12/29/18 09:12 Dose: 100 mls/hr Meropenem 1 gm/ Sodium (Chloride) 100 mls @ 100 mls/hr IVPB Q8 NELLI; Protocol Last Admin: 12/29/18 00:17 Dose: 100 mls/hr Vancomycin HCl 1 gm/ Sodium (Chloride) 250 mls @ 166.667 mls/hr IVPB Q12 NELLI; Protocol Last Admin: 12/28/18 21:51 Dose: 166.667 mls/hr Ipratropium [place] (Atrovent) 0.5 mg IH RQ6 [facility] Last Admin: 12/29/18 07:31 Dose: 0.5 mg Lactic Acid (Lac-Hydrin 12% Lotion (225 G)) 1 applic TOP BID [facility] Last Admin: 12/29/18 09:27 Dose: 1 applic Lactulose (Enulose) 10 gm PO ONCE [facility] Levalbuterol HCl (Xopenex) 1.25 mg INH RQ8 [facility] Last Admin: 12/29/18 07:30 Dose: 1.25 mg Metoprolol Tartrate (Lopressor) 25 mg PO Q12 [facility] Last Admin: 12/29/18 09:14 Dose: 25 mg Promethazine HCl/Dextromethorphan (Phenergan Dm Syrup) 5 ml PO Q6 PRN PRN Reason: Cough and congestion Last Admin: 12/15/18 22:00 Dose: 5 ml - Labs Labs: - Additional Findings Additional findings: - Constitutional Appears: awake - Head Exam Head Exam: ATRAUMATIC - ENT Exam Additional comments: ET and OGT in place - Respiratory Exam Additional comments: on the vent decreased breath sounds at right base - Cardiovascular Exam Cardiovascular Exam: Tachycardia, +S1, +S2 - GI/Abdominal Exam GI & Abdominal Exam: Soft, Normal Bowel Sounds Additional comments: NT, ND - Extremities Exam Extremities Exam: Normal Inspection - Neurological Exam Neurological Exam: awake and follows commands Laboratory Results - last 72 hr 12/27/18 12/27/18 12/27/18 04:58 05:31 05:31 WBC 5.3 RBC 4.23 L Hgb 13.4 Hct 41.9 MCV 99.0 H MCH 31.6 H MCHC 32.0 L RDW 15.2 H Plt Count 208 pCO2 51 H pO2 115 H HCO3 30.6 H ABG pH 7.42 ABG Total CO2 34.7 H ABG O2 Saturation 99.7 H ABG O2 Content 16.8 ABG Base Excess 7.3 H ABG Hemoglobin 12.2 ABG Carboxyhemoglobin 1.8 H POC ABG HHb (Measured) 0.3 ABG Methemoglobin 1.1 ABG O2 Capacity 16.9 [place] Test Yes A-a O2 Difference 178.0 Hgb O2 Saturation 96.8 Vent Mode A/c Mechanical Rate 12 FiO2 50.0 Tidal Volume 500 PEEP 5 Sodium 141 Potassium 3.9 Chloride 106 Carbon Dioxide 30 Anion Gap 9 L BUN 46 H Creatinine 1.0 Est GFR ( Amer) > 60 Est GFR (Non-Af Amer) > 60 Random Glucose 157 H Calcium 8.2 L Total Bilirubin 0.4 AST 39 ALT 50 Alkaline Phosphatase 185 H D Total Protein 5.5 L Albumin 2.6 L Globulin 2.9 Albumin/Globulin Ratio 0.9 L Vancomycin Trough Random Vancomycin 12/27/18 12/28/18 12/28/18 07:10 04:13 04:13 WBC 6.4 RBC 3.28 L Hgb 11.3 L D Hct 34.0 L MCV 103.7 H D MCH 34.6 H MCHC 33.4 RDW 14.7 H Plt Count 200 pCO2 pO2 HCO3 ABG pH ABG Total CO2 ABG O2 Saturation ABG O2 Content ABG Base Excess ABG Hemoglobin ABG Carboxyhemoglobin POC ABG HHb (Measured) ABG Methemoglobin ABG O2 Capacity [place] Test A-a O2 Difference Hgb O2 Saturation Vent Mode Mechanical Rate FiO2 Tidal Volume PEEP Sodium 142 Potassium 4.0 Chloride 107 Carbon Dioxide 31 H Anion Gap 8 L BUN 46 H Creatinine 0.9 Est GFR ( Amer) > 60 Est GFR (Non-Af Amer) > 60 Random Glucose 117 H Calcium 7.9 L Total Bilirubin 0.5 AST 50 ALT 55 Alkaline Phosphatase 192 H Total Protein 5.3 L Albumin 2.4 L Globulin 2.9 Albumin/Globulin Ratio 0.9 L Vancomycin Trough 10.8 H Random Vancomycin 12/28/18 12/29/18 12/29/18 04:55 05:08 05:32 WBC 7.3 RBC 3.04 L Hgb 9.9 L Hct 30.0 L MCV 98.8 H D MCH 32.5 H MCHC 32.9 L RDW 14.9 H Plt Count 201 pCO2 44 48 H pO2 88 118 H HCO3 30.7 H 32.7 H ABG pH 7.47 H 7.47 H ABG Total CO2 33.4 H 36.4 H ABG O2 Saturation 98.7 H 99.8 H ABG O2 Content 16.0 14.0 L ABG Base Excess 7.4 H 10.0 H ABG Hemoglobin 11.8 10.1 L ABG Carboxyhemoglobin 1.7 H 1.6 H POC ABG HHb (Measured) 1.3 0.2 ABG Methemoglobin 1.4 1.2 ABG O2 Capacity 16.2 14.0 L [place] Test Yes Yes A-a O2 Difference 214.0 179.0 Hgb O2 Saturation 95.7 97.1 Vent Mode A/c A/c Mechanical Rate 12 12 FiO2 50.0 50.0 Tidal Volume 500 500 PEEP 5 5 Sodium Potassium Chloride Carbon Dioxide Anion Gap BUN Creatinine Est GFR ( Amer) Est GFR (Non-Af Amer) Random Glucose Calcium Total Bilirubin AST ALT Alkaline Phosphatase Total Protein Albumin Globulin Albumin/Globulin Ratio Vancomycin Trough Random Vancomycin 12/29/18 12/29/18 05:32 05:32 WBC RBC Hgb Hct MCV MCH MCHC RDW Plt Count pCO2 pO2 HCO3 ABG pH ABG Total CO2 ABG O2 Saturation ABG O2 Content ABG Base Excess ABG Hemoglobin ABG Carboxyhemoglobin POC ABG HHb (Measured) ABG Methemoglobin ABG O2 Capacity [place] Test A-a O2 Difference Hgb O2 Saturation Vent Mode Mechanical Rate FiO2 Tidal Volume PEEP Sodium 142 Potassium 4.1 Chloride 107 Carbon Dioxide 34 H Anion Gap 5 L BUN 44 H Creatinine 0.8 Est GFR ( Amer) > 60 Est GFR (Non-Af Amer) > 60 Random Glucose 125 H Calcium 8.0 L Total Bilirubin AST ALT Alkaline Phosphatase Total Protein Albumin Globulin Albumin/Globulin Ratio Vancomycin Trough Random Vancomycin 16.8 Microbiology 12/26/18 09:00 Trachasp Gram Stain - Final 12/26/18 09:00 Trachasp Sputum Culture - Final No growth. 12/22/18 16:49 Blood-Venous Blood Culture - Final NO GROWTH AFTER 5 DAYS 12/22/18 16:49 Blood-Venous Gram Stain - Final TEST NOT PERFORMED 12/21/18 17:25 Blood-Venous Blood Culture - Final NO GROWTH AFTER 5 DAYS 12/21/18 17:25 Blood-Venous Gram Stain - Final TEST NOT PERFORMED 12/21/18 17:20 Blood-Venous Blood Culture - Final NO GROWTH AFTER 5 DAYS 12/21/18 17:20 Blood-Venous Gram Stain - Final TEST NOT PERFORMED 12/23/18 17:10 Trachasp Gram Stain - Final 12/23/18 17:10 Trachasp Sputum Culture - Final No growth. 12/22/18 07:32 Urine,Clean Catch Urine Culture - Final No Growth (<1,000 CFU/ML) 12/23/18 15:30 Nose MRSA Culture (Admit) - Final MRSA NOT DETECTED Accession No. : [id number] Patient Name / ID : ASHISH Gutierrez / [id number] Exam Date : 12/29/2018 04:02:10 ( Approved ) Study Comment : Sex / Age : M / [id number] Creator : Kaycee Chirinos Dictator : Kaycee Chirinos [employer] Operator : Oncologist : Kaycee Chirinos Approver2 : Report Date : 12/29/2018 08:00:42 My Comment : Date of service: 12/29/2018 PROCEDURE: CHEST RADIOGRAPH, 1 VIEW HISTORY: Intubated COMPARISON: 12/28/2018 FINDINGS: LUNGS: Opacity left inferior hemithorax overall increased inhomogeneous density- interval increasing left pleural effusion with complete interval increased compressive atelectasis here inferred. Concomitant left basal infiltrate not excluded. Right pleural effusion similar some potential loculation along the lateral right hemithorax possible no change in appearance. Coalescing patchy airspace opaci ties right mid lung zone accentuated at right base-similar in appearance Endotracheal tube tip at superior clavicle level-current study slightly apical lordotic but less so than before. Consider advancement 1.5 to 2 cm. PLEURA: Bilateral pleural effusions-that on the left has increased and on the right is similar-description in above section. No interval pneumothorax appreciated. CARDIOVASCULAR: There is presence of aortic atherosclerotic calcification on x-ray. Mild cardiomegaly-similar. Concomitant pulmonary venous congestion suspect probably similar and/or slightly increased. Right-sided PICC line tip superior vena cava-an interval change. OSSEOUS STRUCTURES: Thoracic spondylosis. Right shoulder arthrosis-left shoulder excluded from current field of view. VISUALIZED UPPER ABDOMEN: Nasogastric tube inserted-tip near stomach. OTHER FINDINGS: None. IMPRESSION: Interval increased left pleural effusion-associated compressive atelectasis inferred. Other findings as above. Endotracheal tube tip at superior clavicle level-current study slightly apical lordotic but less so than before. Consider advancement 1.5 to 2 cm. Interval insertion right sided PICC line tip superior vena cava no pneumothorax noted Comments: Study marked for PA review . Assessment and Plan (1) Atrial fibrillation with RVR Status: Acute (2) Altered mental status Status: Acute (3) Pneumonia Status: Acute (4) Multifocal pneumonia Status: Acute - Assessment and Plan (Free Text) Assessment: A/P- 73 year old male with a.fib and now found to have altered mental status and Right sided pneumonia , developed hypercapneic resp failure yesterday afternoon , s/p intubation and transferred to ICU. Intubated aspiration pneumonia of the right lung , multifocal pneumonia afebrile normal wbc count Blood cx- neg x 3 trach asp cx- Negative x 2 hepatitis panel- neg urine legionella AG- neg mycoplasma IGM- negative PLan- continue with IV meropnem day #7 continue with IV vancomyicn day #7 hold today since trough was high keep vanco trough <15. can continue the metronidazole day #8 for anaerobic coverage as well. advise 2 more days of metronidazole. all labs and imaging and chart notes reviewed. Critical care time spent 40 minutes.
[2018-12-29] MEDS ORDERED: metOLazone 2.5 MG TAB PO ONE (10:44)
[2018-12-29] MEDS ORDERED: metOLazone 5 MG TAB PO ONE (10:47)
--- NOTE | 2018-12-29 14:06 | PN ---
DATE: 12/29/2018 ELECTROPHYSIOLOGY ICU PROGRESS NOTE REASON FOR EVALUATION: 1. Tachycardia. 2. Atrial fibrillation. 3. Ventilator-dependent respiratory failure. 4. Systolic heart failure. SUBJECTIVE: Mr. Emanuel Bowen was seen today in the ICU for electrophysiology followup evaluation. Events yesterday as well as overnight noted. The patient with increased heart rate secondary to atrial fibrillation with rapid ventricular response. The patient had been on maximum dose of Cardizem and was given digoxin by Dr. Farnsworth, metoprolol 25 mg b.i.d. has also been initiated. At this morning, heart rate appeared to be relatively controlled with atrial fibrillation with rates in the 80s to 90s with interaction and stimulation and the heart rates do come up to 100 to 105. The patient continues to be vent dependent, is awake and does continue to nod appropriately. Interval chest x-ray shows increasing left pleural effusion and significant bilateral congestion. PHYSICAL EXAMINATION: VITAL SIGNS: Temperature is 99.1, pulse rate of 96, blood pressure is 110/70 with mean arterial pressure of 83. GENERAL: He is a poorly-kept male, in no acute distress, again able to nod appropriately. HEENT: Head is normocephalic, atraumatic. There is no dewayne facial asymmetry. He is intubated. NECK: Supple. Jugular venous distention is difficult to appreciate. CHEST: Significant for decreased breath sounds in bilateral bases, left greater than right with coarse breath sounds in the mid lung albrecht. CARDIOVASCULAR: Irregularly irregular rhythm. S1 and S2. No S3 or S4. PMI is difficult to appreciate. ABDOMEN: Soft, obese, nontender, and nondistended. Positive bowel sounds. EXTREMITIES: No cyanosis or clubbing. There is 1+ lower extremity edema. The patient is tattered with tattoos all over his body. LABORATORY DATA: On review of relevant lab work, the patient has a white count of 7.3, H and H of 9.9 and 30, and platelet count of 201. INR is 1.5, PT is 16.8. Sodium is 139, chloride 104, BUN and creatinine of 44 and 1.2, calcium of 8.1. ALT and AST of 43 and 63 respectively. Alk phos is 145. Total protein is 5.4, albumin is 2.5. Vancomycin trough is 12.9. ASSESSMENT AND PLAN: 1. Tachycardia secondary to atrial fibrillation with at times poorly-controlled ventricular response. The patient appears to be more stable this morning, on p.o. metoprolol, Cardizem 10 mg, and status post digoxin load. If there continues to be ongoing issues and blood pressures are having a great , we again may consider amiodarone for rate control though likelihood of spontaneous conversion is low. The patient is on Lovenox for therapeutic anticoagulation. The patient's hemoglobin status needs to be continued to be monitored. 2. Atrial fibrillation, again rate controlled as above. The patient eventually may be a candidate for cardioversion. 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 Again would need to be a candidate for long-term anticoagulation is to be considered. This will be discussed with him when his clinical condition and pulmonary status improves. 3. Ventilator-dependent respiratory failure. The patient is continued to be managed by the intensive care unit team. He is on antibiotics for presumptive pneumonia. The patient also has a pleural effusion that . 4. Systolic heart failure, of unclear duration. The patient does have an ejection fraction between 35% and 40%, unclear if this is rate related. Again, the patient's clinical condition will have to improve prior to making decisions in regards to therapy and possible options for his management. 5. Anemia, which again will need to be monitored carefully. Thank you for allowing me to participate in the care of your patient. The patient was seen in the ICU and case was discussed with the ICU nursing team. Sathish Nails MD cc: Jalen Farnsworth MD, Cookie Franco MD, and Karen Banda DO.
--- NOTE | 2018-12-29 16:07 | CP.PCM.PN ---
Subjective - Date & Time of Evaluation Date of Evaluation: 12/29/18 Time of Evaluation: 13:00 - Subjective Subjective: F/U Respiratory failure Awake, on AC PRVC, follows commands. Objective - Vital Signs/Intake and Output Vital Signs (last 24 hours): Temp Pulse Resp BP Pulse Ox 99.1 F 112 H 12 104/67 100 12/29/18 15:00 12/29/18 15:00 12/29/18 15:00 12/29/18 15:00 12/29/18 15:00 Intake and Output: 12/29/18 12/29/18 06:59 18:59 Intake Total 1857.9 1033.6 Output Total 1100 1200 Balance 757.9 -166.4 - Medications Medications: Current Medications Acetaminophen (Tylenol 325mg Tab) 650 mg PO Q6 PRN PRN Reason: Pain, Mild (1-3) Last Admin: 12/24/18 20:36 Dose: 650 mg Acetylcysteine (Mucomyst 10% 4ml) 2 ml IH RBID NELLI Last Admin: 12/29/18 07:30 Dose: 2 ml Artificial Tears (Artificial Tears) 2 drop OU Q4 PRN PRN Reason: Dry eyes Last Admin: 12/28/18 20:47 Dose: 2 drop Docusate Sodium (Colace) 100 mg PO DAILY NELLI Last Admin: 12/23/18 10:29 Dose: 100 mg Docusate Sodium (Colace Liquid) 100 mg PO BID NELLI Last Admin: 12/29/18 09:12 Dose: 100 mg Famotidine (Pepcid) 20 mg IVP Q12 NELLI Last Admin: 12/29/18 09:16 Dose: 20 mg Metronidazole (Flagyl 500mg/100ml Ns) 100 mls @ 100 mls/hr IVPB Q12 NELLI; Protocol Last Admin: 12/29/18 09:12 Dose: 100 mls/hr Meropenem 1 gm/ Sodium (Chloride) 100 mls @ 100 mls/hr IVPB Q8 NELLI; Protocol Last Admin: 12/29/18 10:57 Dose: 100 mls/hr Vancomycin HCl 1 gm/ Sodium (Chloride) 250 mls @ 166.667 mls/hr IVPB Q12 NELLI; Protocol Last Admin: 12/29/18 09:05 Dose: Not Given Ipratropium [place] (Atrovent) 0.5 mg IH RQ6 [facility] Last Admin: 12/29/18 13:09 Dose: 0.5 mg Lactic Acid (Lac-Hydrin 12% Lotion (225 G)) 1 applic TOP BID [facility] Last Admin: 12/29/18 09:27 Dose: 1 applic Lactulose (Enulose) 10 gm PO ONCE [facility] Levalbuterol HCl (Xopenex) 1.25 mg INH RQ8 [facility] Last Admin: 12/29/18 15:16 Dose: 1.25 mg Metoprolol Tartrate (Lopressor) 25 mg PO Q12 [facility] Last Admin: 12/29/18 09:14 Dose: 25 mg Promethazine HCl/Dextromethorphan (Phenergan Dm Syrup) 5 ml PO Q6 PRN PRN Reason: Cough and congestion Last Admin: 12/15/18 22:00 Dose: 5 ml - Labs Labs: 12/29/18 05:32 12/29/18 05:32 PT 16.8 Seconds (9.8-13.1) H 12/25/18 05:40 INR 1.5 12/25/18 05:40 APTT 43.1 Seconds (25.6-37.1) H 12/25/18 05:40 - Constitutional Appears: Chronically Ill - Head Exam Head Exam: NORMAL INSPECTION - Eye Exam Eye Exam: PERRL - ENT Exam Additional comments: Intubated, OGT - Neck Exam Neck Exam: Normal Inspection - Respiratory Exam Respiratory Exam: Decreased Breath Sounds (at bases R>L, ), Rhonchi - Cardiovascular Exam Cardiovascular Exam: Tachycardia, Irregular Rhythm, Murmur (sytolic) - GI/Abdominal Exam GI & Abdominal Exam: Soft, Normal Bowel Sounds - Exam Additional comments: Cifuentes Cath - Extremities Exam Additional comments: edema UE's/ LE's - Back Exam Back Exam: NORMAL INSPECTION - Neurological Exam Additional comments: Intubated, sedated - Skin Skin Exam: Dry, Warm Assessment and Plan (1) Aspiration pneumonia of right lung Status: Acute (2) Multifocal pneumonia Status: Acute (3) Pleural effusion, bilateral Status: Acute (4) Respiratory failure Status: Resolved (5) COPD (chronic obstructive pulmonary disease) Status: Chronic (6) Atrial fibrillation with RVR Status: Acute - Assessment and Plan (Free Text) Plan: continue ventilatory support, f/u CXR in AM, continue [place], Xopenex, Atrovent and rest of Tx. Critical care time: 33 min.
[2018-12-29] MEDS ORDERED: Dexmedetomidine Hydrochloride 400 MCG in Sodium Chloride 0.9% 96 ML IV ONE (16:10)
--- NOTE | 2018-12-29 17:05 | CP.CCUPN ---
<Cate Londono - Last Filed: 12/29/18 17:02> CCU Subjective - Physician Review Subjective (Free Text): Heart rate has remains stable today, 90's-100 Continues on cardizem drip and intubated and sedated. Patient responds to name and opens eyes. Edematous, and anasarca noted. On Vent: A/C rate 12, FIO2 50, PEEP 5, TVol 0.5L Assessment/Plan: 1. Acute respiratory failure -likely 2/2 to pneumonia, pleural effusion, hypercapnia today -Intubated/sedated -ID on board, c/w metro, vanco and flagyl 2. Altered mental status -likely 2/2 to metabolic encephalopathy -CT head no acute pathology 3. A Fib, new onset -cardio on board -rate improved -c.w Cardizem drip, titrate down as tolerated -c/w Lovenox 110 SC 4. Anasarca -likely 2/2 to fluid overload and hypoalbuminia -IV lasix and 1x dose of metalazone -cont to monitor urine output 5. Anemia, acute -likely 2/2 to bleeding from femoral line site -bleeding stopped with silver nitrate -c/t monitor h/h 6. A Fib, new onset -cardio on board -rate improved -c.w Cardizem drip, titrate down as tolerated -c/w Lovenox 110 SC 7. Skin moles -large black moles noted in skin -consider skin biopsy Critical Care Time Spent (in minutes): 40 CCU Objective - Vital Signs / Intake & Output Vital Signs (Last 4 hours): Vital Signs Temp Pulse Resp BP Pulse Ox 12/29/18 16:00 99.1 F 106 H 12 97/62 L 100 12/29/18 15:00 99.1 F 112 H 12 104/67 100 12/29/18 14:00 99.0 F 99 H 12 102/69 100 Intake and Output (Last 8hrs): Intake & Output 12/29/18 12/29/18 12/29/18 06:59 14:59 22:59 Intake Total 1167.0 1033.6 140 Output Total 1100 1200 Balance 67.0 -166.4 140 Weight 108.59 kg Intake: IV 187.0 53.6 Intake, Piggyback 100 400 Tube Feeding 480 480 140 Free Water Flush 400 100 Output: Urine 1100 1200 Urethral (Cifuentes) 1100 1200 - Physical Exam Head: Positive for: Atraumatic, Normocephalic Pupils: Positive for: PERRL Extroacular Muscles: Positive for: EOMI Mouth: Positive for: Other (s/p intubated) Respiratory/Chest: Positive for: Rhonchi, Other (course breath sounds ). Negative for: Accessory Muscle Use, Wheezes Cardiovascular: Positive for: Normal S1, S2, Irregular Rhythm, Tachycardic Abdomen: Positive for: Distention, Normal Bowel Sounds. Negative for: Tenderness, Peritoneal Signs Genitourinary Male: Positive for: Other (scrotal edema, scrotal elevation noted ) Upper Extremity: Positive for: Edema Lower Extremity: Positive for: Edema, Other (edema 3+ pitting up to the sacrum ) Skin: Positive for: Rashes (tiny multiple dark spots in the body, looks like moles some with erythematous base), Other (multiple tattoes noted throughout the body) Psychiatric: Positive for: Alert. Negative for: Oriented x 3 - Medications Active Medications: Active Medications Generic Name Dose Route Start Last Admin Trade Name Freq PRN Reason Stop Dose Admin Acetaminophen 650 mg 12/16/18 07:14 12/24/18 20:36 Tylenol 325mg Tab PO 650 mg Q6 PRN Administration Pain, Mild (1-3) Acetylcysteine 2 ml 12/23/18 15:13 12/29/18 07:30 Mucomyst 10% 4ml IH 2 ml RBID NELLI Administration Artificial Tears 2 drop 12/28/18 20:32 12/28/18 20:47 Artificial Tears OU 2 drop Q4 PRN Administration Dry eyes Docusate Sodium 100 mg 12/18/18 09:00 12/23/18 10:29 Colace PO 100 mg DAILY NELLI Administration Docusate Sodium 100 mg 12/29/18 09:00 12/29/18 16:16 Colace Liquid PO 100 mg BID NELLI Administration Famotidine 20 mg 12/23/18 21:00 12/29/18 09:16 Pepcid IVP 20 mg Q12 NELLI Administration Meropenem 1 gm/ Sodium 100 mls @ 100 mls/hr 12/23/18 17:00 12/29/18 16:16 Chloride IVPB 100 mls/hr Q8 NELLI Administration Protocol Vancomycin HCl 1 gm/ Sodium 250 mls @ 166.667 mls/hr 12/23/18 21:00 12/29/18 09:05 Chloride IVPB Not Given Q12 NELLI Protocol Diltiazem HCl 125 mg/ Sodium 125 mls @ 10 mls/hr 12/29/18 16:08 Chloride IV 12/30/18 04:37 .[id number] ONE Protocol 10 MG/HR Dexmedetomidine HCl 400 mcg/ 100 mls @ 8.14 mls/hr 12/29/18 16:10 Sodium Chloride IV 12/30/18 04:27 .[id number] ONE Protocol 0.3 MCG/KG/HR Metronidazole 100 mls @ 100 mls/hr 12/29/18 21:00 Flagyl 500mg/100ml Ns IVPB Q12 NELLI Protocol Ipratropium [place] 0.5 mg 12/25/18 20:00 12/29/18 13:09 Atrovent IH 0.5 mg RQ6 NELLI Administration Lactic Acid 1 applic 12/21/18 17:00 12/29/18 16:16 Lac-Hydrin 12% Lotion (225 G) TOP 1 applic BID NELLI Administration Lactulose 10 gm 12/27/18 18:15 Enulose PO ONCE NELLI Levalbuterol HCl 1.25 mg 12/25/18 16:00 12/29/18 15:16 Xopenex INH 1.25 mg RQ8 NELLI Administration Metoprolol Tartrate 25 mg 12/28/18 21:00 12/29/18 09:14 Lopressor PO 25 mg Q12 NELLI Administration Promethazine HCl/Dextromethorphan 5 ml 12/15/18 20:41 12/15/18 22:00 Phenergan Dm Syrup PO 5 ml Q6 PRN Administration Cough and congestion - Patient Studies Lab Studies: Lab Studies 12/29/18 12/29/18 12/29/18 Range/Units 05:32 05:32 05:32 WBC 7.3 (4.8-10.8) K/uL RBC 3.04 L (4.40-5.90) Mil/uL Hgb 9.9 L (12.0-18.0) g/dL Hct 30.0 L (35.0-51.0) % MCV 98.8 H D (80.0-94.0) fl MCH 32.5 H (27.0-31.0) pg MCHC 32.9 L (33.0-37.0) g/dL RDW 14.9 H (11.5-14.5) % Plt Count 201 (130-400) K/uL pCO2 (35-45) mm/Hg pO2 (80-100) mm/Hg HCO3 (21-28) mmol/L ABG pH (7.35-7.45) ABG Total CO2 (22-28) mmol/L ABG O2 Saturation (95-98) % ABG O2 Content (15-23) ML/dL ABG Base Excess (-2.0-3.0) mmol/L ABG Hemoglobin (11.7-17.4) g/dL ABG Carboxyhemoglobin (0.5-1.5) % POC ABG HHb (Measured) (0.0-5.0) % ABG Methemoglobin (0.0-3.0) % ABG O2 Capacity (16-24) mL/dL [place] Test A-a O2 Difference mm/Hg Hgb O2 Saturation (95.0-98.0) % Vent Mode Mechanical Rate FiO2 % Tidal Volume PEEP Sodium 142 (132-148) mmol/l Potassium 4.1 (3.6-5.0) MMOL/L Chloride 107 (98-107) mmol/L Carbon Dioxide 34 H (22-30) mmol/L Anion Gap 5 L (10-20) BUN 44 H (9-20) mg/dl Creatinine 0.8 (0.8-1.5) mg/dl Est GFR ( Amer) > 60 Est GFR (Non-Af Amer) > 60 Random Glucose 125 H (75-110) mg/dL Calcium 8.0 L (8.4-10.2) mg/dL Random Vancomycin 16.8 ug/mL 12/29/18 Range/Units 05:08 WBC (4.8-10.8) K/uL RBC (4.40-5.90) Mil/uL Hgb (12.0-18.0) g/dL Hct (35.0-51.0) % MCV (80.0-94.0) fl MCH (27.0-31.0) pg MCHC (33.0-37.0) g/dL RDW (11.5-14.5) % Plt Count (130-400) K/uL pCO2 48 H (35-45) mm/Hg pO2 118 H (80-100) mm/Hg HCO3 32.7 H (21-28) mmol/L ABG pH 7.47 H (7.35-7.45) ABG Total CO2 36.4 H (22-28) mmol/L ABG O2 Saturation 99.8 H (95-98) % ABG O2 Content 14.0 L (15-23) ML/dL ABG Base Excess 10.0 H (-2.0-3.0) mmol/L ABG Hemoglobin 10.1 L (11.7-17.4) g/dL ABG Carboxyhemoglobin 1.6 H (0.5-1.5) % POC ABG HHb (Measured) 0.2 (0.0-5.0) % ABG Methemoglobin 1.2 (0.0-3.0) % ABG O2 Capacity 14.0 L (16-24) mL/dL [place] Test Yes A-a O2 Difference 179.0 mm/Hg Hgb O2 Saturation 97.1 (95.0-98.0) % Vent Mode A/c Mechanical Rate 12 FiO2 50.0 % Tidal Volume 500 PEEP 5 Sodium (132-148) mmol/l Potassium (3.6-5.0) MMOL/L Chloride (98-107) mmol/L Carbon Dioxide (22-30) mmol/L Anion Gap (10-20) BUN (9-20) mg/dl Creatinine (0.8-1.5) mg/dl Est GFR ( Amer) Est GFR (Non-Af Amer) Random Glucose (75-110) mg/dL Calcium (8.4-10.2) mg/dL Random Vancomycin ug/mL Laboratory Results - last 24 hr 12/29/18 12/29/18 12/29/18 05:08 05:32 05:32 WBC 7.3 RBC 3.04 L Hgb 9.9 L Hct 30.0 L MCV 98.8 H D MCH 32.5 H MCHC 32.9 L RDW 14.9 H Plt Count 201 pCO2 48 H pO2 118 H HCO3 32.7 H ABG pH 7.47 H ABG Total CO2 36.4 H ABG O2 Saturation 99.8 H ABG O2 Content 14.0 L ABG Base Excess 10.0 H ABG Hemoglobin 10.1 L ABG Carboxyhemoglobin 1.6 H POC ABG HHb (Measured) 0.2 ABG Methemoglobin 1.2 ABG O2 Capacity 14.0 L [place] Test Yes A-a O2 Difference 179.0 Hgb O2 Saturation 97.1 Vent Mode A/c Mechanical Rate 12 FiO2 50.0 Tidal Volume 500 PEEP 5 Sodium 142 Potassium 4.1 Chloride 107 Carbon Dioxide 34 H Anion Gap 5 L BUN 44 H Creatinine 0.8 Est GFR ( Amer) > 60 Est GFR (Non-Af Amer) > 60 Random Glucose 125 H Calcium 8.0 L Random Vancomycin 12/29/18 05:32 WBC RBC Hgb Hct MCV MCH MCHC RDW Plt Count pCO2 pO2 HCO3 ABG pH ABG Total CO2 ABG O2 Saturation ABG O2 Content ABG Base Excess ABG Hemoglobin ABG Carboxyhemoglobin POC ABG HHb (Measured) ABG Methemoglobin ABG O2 Capacity [place] Test A-a O2 Difference Hgb O2 Saturation Vent Mode Mechanical Rate FiO2 Tidal Volume PEEP Sodium Potassium Chloride Carbon Dioxide Anion Gap BUN Creatinine Est GFR ( Amer) Est GFR (Non-Af Amer) Random Glucose Calcium Random Vancomycin 16.8 Radiology Impressions: Radiology Impressions Chest X-Ray 12/29/18 06:00 IMPRESSION: Interval increased left pleural effusion-associated compressive atelectasis inferred. Other findings as above. Endotracheal tube tip at superior clavicle level-current study slightly apical lordotic but less so than before. Consider advancement 1.5 to 2 cm. Interval insertion right sided PICC line tip superior vena cava no pneumothorax noted Comments: Study marked for PA review . Fingerstick Blood Sugar Results: 122 <JamarMainn - Last Filed: 12/29/18 19:35> Assessment/Plan - Assessment and Plan (Free Text) Plan: Attestation: Time spent with this patient did not overlap with any other provider's medical or critical care time. Additionally the code selected for the services rendered in this note includes the time spent: talking to the patients family, associated physicians and reviewing hospital data/results not listed here which extended to a total of 40 minutes of critical care. Patient seen and examined at the bedside with Resident Dr. Leon Londono; and I agree with her outline of plans and management documented above as discussed on AM rounds; reflecting my review of all applicable clinical data, and participation in the care of the patient throughout the day in ICU; today, December 29, 2018.
[2018-12-30] MEDS: Meropenem 1 GM in Sodium Chloride 0.9% 100 ML IVPB SCH ×3 (00:17→16:34)
--- NOTE | 2018-12-30 00:32 | CP.PCM.PN ---
Subjective - Date & Time of Evaluation Date of Evaluation: 12/29/18 Time of Evaluation: 17:10 - Subjective Subjective: Continue to be intubated. Improving Objective - Vital Signs/Intake and Output Vital Signs (last 24 hours): Temp Pulse Resp BP Pulse Ox 99.7 F H 97 H 14 105/63 100 12/29/18 23:00 12/29/18 23:00 12/29/18 23:00 12/29/18 23:00 12/29/18 23:00 Intake and Output: 12/29/18 12/30/18 18:59 06:59 Intake Total 1633.6 733.9 Output Total 2300 Balance -666.4 733.9 - Medications Medications: Current Medications Acetaminophen (Tylenol 325mg Tab) 650 mg PO Q6 PRN PRN Reason: Pain, Mild (1-3) Last Admin: 12/24/18 20:36 Dose: 650 mg Acetylcysteine (Mucomyst 10% 4ml) 2 ml IH RBID NELLI Last Admin: 12/29/18 19:01 Dose: 2 ml Artificial Tears (Artificial Tears) 2 drop OU Q4 PRN PRN Reason: Dry eyes Last Admin: 12/28/18 20:47 Dose: 2 drop Docusate Sodium (Colace) 100 mg PO DAILY NELLI Last Admin: 12/23/18 10:29 Dose: 100 mg Docusate Sodium (Colace Liquid) 100 mg PO BID NELLI Last Admin: 12/29/18 16:16 Dose: 100 mg Enoxaparin Sodium (Lovenox) 110 mg SC Q12 NELLI; Protocol Last Admin: 12/29/18 20:41 Dose: 110 mg Famotidine (Pepcid) 20 mg IVP Q12 NELLI Last Admin: 12/29/18 20:40 Dose: 20 mg Meropenem 1 gm/ Sodium (Chloride) 100 mls @ 100 mls/hr IVPB Q8 NELLI; Protocol Last Admin: 12/30/18 00:17 Dose: 100 mls/hr Vancomycin HCl 1 gm/ Sodium (Chloride) 250 mls @ 166.667 mls/hr IVPB Q12 NELLI; Protocol Last Admin: 12/29/18 22:01 Dose: 166.667 mls/hr Diltiazem HCl 125 mg/ Sodium (Chloride) 125 mls @ 10 mls/hr IV .[id number] ONE; Protocol Stop: 12/30/18 04:37 Last Titration: 12/29/18 22:02 Dose: 7.5 mg/hr, 7.5 mls/hr Dexmedetomidine HCl 400 mcg/ (Sodium Chloride) 100 mls @ 8.14 mls/hr IV .[id number] ONE; Protocol Stop: 12/30/18 04:27 Last Admin: 12/29/18 18:07 Dose: 0.3 mcg/kg/hr, 8.14 mls/hr Metronidazole (Flagyl 500mg/100ml Ns) 100 mls @ 100 mls/hr IVPB Q12 NELLI; Protocol Last Admin: 12/29/18 20:43 Dose: 100 mls/hr Ipratropium [place] (Atrovent) 0.5 mg IH RQ6 NELLI Last Admin: 12/29/18 23:35 Dose: 0.5 mg Lactic Acid (Lac-Hydrin 12% Lotion (225 G)) 1 applic TOP BID NELLI Last Admin: 12/29/18 16:16 Dose: 1 applic Lactulose (Enulose) 10 gm PO ONCE NELLI Levalbuterol HCl (Xopenex) 1.25 mg INH RQ8 NELLI Last Admin: 12/29/18 23:35 Dose: 1.25 mg Metoprolol Tartrate (Lopressor) 25 mg PO Q12 NELLI Last Admin: 12/29/18 20:42 Dose: 25 mg Promethazine HCl/Dextromethorphan (Phenergan Dm Syrup) 5 ml PO Q6 PRN PRN Reason: Cough and congestion Last Admin: 12/15/18 22:00 Dose: 5 ml - Labs Labs: 12/29/18 05:32 12/29/18 05:32 PT 16.8 Seconds (9.8-13.1) H 12/25/18 05:40 INR 1.5 12/25/18 05:40 APTT 43.1 Seconds (25.6-37.1) H 12/25/18 05:40 Assessment and Plan (1) Acute respiratory failure with hypoxia and hypercapnia Assessment & Plan: on MV Status: Acute (2) Atrial fibrillation with RVR Status: Acute (3) Multifocal pneumonia Status: Acute (4) COPD (chronic obstructive pulmonary disease) Status: Chronic (5) CHF (congestive heart failure) Status: Acute - Assessment and Plan (Free Text) Plan: Continue Current Care
[2018-12-30] MEDS: Ipratropium 0.02% Inhal Soln (0.5 mg/2.5 ml) UD IH SCH ×3 (01:14→13:04)
[2018-12-30] MEDS ORDERED: Dexmedetomidine Hydrochloride 400 MCG in Sodium Chloride 0.9% 96 ML IV ONE (03:25)
[2018-12-30 05:12] LABS: BASO # 0.1 K/uL (0.0-0.2); BASO % 0.9 % (0.0-2.0); EOS # 0.3 K/uL (0.0-0.7); EOS % 4.5 % (0.0-4.0); HEMOGLOBIN 9.4 g/dL (12.0-18.0); LYMPH # 0.7 K/uL (1.0-4.3); LYMPH % 10.9 % (20.0-40.0); MEAN CELL VOLUME 99.8 fl (80.0-94.0); MEAN CORPUSCULAR HEMOGLOBIN 32.8 pg (27.0-31.0); MEAN CORPUSCULAR HGB CONC 32.8 g/dL (33.0-37.0); MEAN PLATELET VOLUME 8.2 fl (7.2-11.7); MONO # 0.7 K/uL (0.0-0.8); MONO % 10.9 % (0.0-10.0); NEUT # 4.5 K/uL (1.8-7.0); NEUT % 72.8 % (50.0-75.0); NRBC % 0.1 % (0.0-0.0); RBC 2.87 Mil/uL (4.40-5.90); RED CELL DISTRIBUTION WIDTH 14.9 % (11.5-14.5); WHITE BLOOD COUNT 6.1 K/uL (4.8-10.8)
[2018-12-30 05:19] LABS: ALB/GLOB RATIO 0.9 (1.0-2.1); ALBUMIN 2.4 g/dL (3.5-5.0); ALT/SGPT 48 U/L (21-72); AST/SGOT 41 U/L (17-59); BLOOD UREA NITROGEN 41 mg/dl (9-20); CALCIUM 8.2 mg/dL (8.4-10.2); GFR NON-AFRICAN AMERICAN > 60
[2018-12-30 05:42] LABS: ABG ALLEN TEST YES; ARTERIAL BLOOD GAS HCO3 33.7 mmol/L (21-28); ARTERIAL BLOOD GAS HEMOGLOBIN 10.6 g/dL (11.7-17.4); ARTERIAL BLOOD GAS O2 CAPACITY 14.8 mL/dL (16-24); ARTERIAL BLOOD GAS O2 CONTENT 14.7 ML/dL (15-23); ARTERIAL BLOOD GAS O2 SAT 99.6 % (95-98); ARTERIAL BLOOD GAS PCO2 53 mm/Hg (35-45); ARTERIAL BLOOD GAS PH 7.45 (7.35-7.45); ARTERIAL BLOOD GAS PO2 156 mm/Hg (80-100); ARTERIAL BLOOD GAS TCO2 38.4 mmol/L (22-28)
[2018-12-30] MEDS: Artificial Tears Opht Soln OU PRN ×2 (05:51→20:38)
[2018-12-30] MEDS: Acetylcysteine 10% 4 ML IH SCH ×2 (07:54→19:13)
[2018-12-30] MEDS: Levalbuterol 1.25 MG/3 ML Inhal Soln UD INH SCH (07:55)
[2018-12-30] MEDS: Enoxaparin 120 mg Syringe SC SCH (08:25)
--- NOTE | 2018-12-30 09:52 | RAD ---
Date of service: 12/30/2018 HISTORY: Intubated COMPARISON: 12/29/2018. FINDINGS: Endotracheal tube remains high in position terminating in the upper trachea. The nasogastric tube terminates in the stomach. The right PICC line terminates in SVC. LUNGS: The lungs are hyperinflated. There is redemonstration of airspace disease in the right lower lobe. PLEURA: No change in layering pleural effusions. No pneumothorax. CARDIOVASCULAR: Persistent cardiomegaly. There are aortic atherosclerotic calcifications present. OSSEOUS STRUCTURES: Within normal limits for the patient's age. VISUALIZED UPPER ABDOMEN: Normal. OTHER FINDINGS: None. IMPRESSION: Persistent airspace disease in the right lower lobe. Stable layering pleural effusions. Endotracheal tube remains high in position and further advancement is recommended. Stable position of nasogastric tube and right PICC line.
[2018-12-30] MEDS ORDERED: metOLazone 5 MG TAB PO ONE (10:04)
[2018-12-30] MEDS: metroNIDAZOLE 500mg/100ml NS 100 ML IVPB SCH ×2 (10:22→20:36)
--- NOTE | 2018-12-30 12:18 | CP.CCUPN ---
<Cate Londono - Last Filed: 12/30/18 14:23> CCU Subjective - Physician Review Subjective (Free Text): Heart rate has remains stable today, 90's-150's Patient is awake and alert, following commands Patient has been weaned off intubation/sedation Continues on cardizem drip Edematous, and anasarca noted. Mild improvement from previous exam Extubated at 10:30 this morning, breathing on venti mask, saturating 98% on mask. Post extubation, tachycardia on max dose of cardizem Assessment/Plan: 1. A Fib, new onset -cardio on board -rate uncontrolled on max dose of cardizem -c/c Cardizem drip, and start on Amiodarone -Bolus and maintenance ordered -c/w Lovenox 110 SC 2. Acute respiratory failure -likely 2/2 to pneumonia, pleural effusion, hypercapnia today -weaned off -successfully extubated -ID on board, c/w metro, vanco and flagyl (Flagyl to be completed on 01/01) 3. Altered mental status -improving, awake, alert -likely 2/2 to metabolic encephalopathy -CT head no acute pathology 4. Anasarca -likely 2/2 to fluid overload and hypoalbuminia -c/w IV lasix and metalazone -cont to monitor urine output 5. Anemia, acute -likely 2/2 to bleeding from femoral line site -bleeding stopped with silver nitrate -h/h stable at this time 6. A Fib, new onset -cardio on board -uncontrolled rate -d.c Cardizem -start Bolus of amio and amio drip -c/w Lovenox 110 SC 7. Skin moles -black moles noted in skin (largest approx 0.5cm) -consider skin biopsy -repeat coagulopathy, possible biopsy tomorrow 8. Hematuria -likely 2/2 to trauma while rowell cath inserted 9. DVT prolx -Lovenox SC CCU Objective - Vital Signs / Intake & Output Vital Signs (Last 4 hours): Vital Signs Pulse Resp BP Pulse Ox 12/30/18 11:00 132 H 16 114/87 94 L 12/30/18 10:22 130/77 12/30/18 10:00 118 H 22 130/77 99 12/30/18 09:00 110 H 15 106/76 100 04/18/19 08:24 130 H 134/70 Intake and Output (Last 8hrs): Intake & Output 12/29/18 12/30/18 12/30/18 22:59 06:59 14:59 Intake Total 1333.9 1268.8 736 Output Total 1100 1500 Balance 233.9 -231.2 736 Weight 107.955 kg Intake: IV 63.9 128.8 66 Intake, Piggyback 450 100 350 Tube Feeding 620 640 320 Free Water Flush 200 400 Output: Urine 1100 1500 Urethral (Rowell) 1100 1500 Other: # Bowel Movements 1 - Physical Exam Head: Positive for: Atraumatic, Normocephalic Pupils: Positive for: PERRL Extroacular Muscles: Positive for: EOMI Mouth: Positive for: Other (mask on) Respiratory/Chest: Positive for: Rhonchi, Other (course breath sounds). Negative for: Accessory Muscle Use, Wheezes Cardiovascular: Positive for: Normal S1, S2, Irregular Rhythm, Tachycardic Abdomen: Positive for: Distention, Normal Bowel Sounds. Negative for: Tendern ess, Peritoneal Signs Genitourinary Male: Positive for: Other (scrotal edema, mild improvement, scrotal elevation ) Upper Extremity: Positive for: Edema Lower Extremity: Positive for: Edema, Other (edema 3+ pitting up to the sacrum ) Skin: Positive for: Rashes (tiny multiple dark spots in the body, looks like moles some with erythematous base), Other (multiple tattoes noted throughout the body) Psychiatric: Positive for: Alert. Negative for: Oriented x 3 - Medications Active Medications: Active Medications Generic Name Dose Route Start Last Admin Trade Name Matthieuq PRN Reason Stop Dose Admin Acetaminophen 650 mg 12/16/18 07:14 12/24/18 20:36 Tylenol 325mg Tab PO 650 mg Q6 PRN Administration Pain, Mild (1-3) Acetylcysteine 2 ml 12/23/18 15:13 12/30/18 07:54 Mucomyst 10% 4ml IH 2 ml RBID NELLI Administration Artificial Tears 2 drop 12/28/18 20:32 12/30/18 05:51 Artificial Tears OU 2 drop Q4 PRN Administration Dry eyes Docusate Sodium 100 mg 12/18/18 09:00 12/23/18 10:29 Colace PO 100 mg DAILY NELLI Administration Docusate Sodium 100 mg 12/29/18 09:00 12/30/18 08:23 Colace Liquid PO Not Given BID NELLI Enoxaparin Sodium 110 mg 12/29/18 21:00 12/30/18 08:25 Lovenox SC 110 mg Q12 NELLI Administration Protocol Famotidine 20 mg 12/23/18 21:00 12/30/18 08:38 Pepcid IVP 20 mg Q12 NELLI Administration Meropenem 1 gm/ Sodium 100 mls @ 100 mls/hr 12/23/18 17:00 12/30/18 08:26 Chloride IVPB 100 mls/hr Q8 NELLI Administration Protocol Vancomycin HCl 1 gm/ Sodium 250 mls @ 166.667 mls/hr 12/23/18 21:00 12/30/18 08:27 Chloride IVPB 166.667 mls/hr Q12 NELLI Administration Protocol Metronidazole 100 mls @ 100 mls/hr 12/29/18 21:00 12/30/18 10:22 Flagyl 500mg/100ml Ns IVPB 100 mls/hr Q12 NELLI Administration Protocol Dexmedetomidine HCl 400 mcg/ 100 mls @ 5.43 mls/hr 12/30/18 03:25 12/30/18 08:45 Sodium Chloride IV 12/30/18 21:49 0 mcg/kg/hr .[id number] ONE 0 mls/hr Titration Protocol 0.2 MCG/KG/HR Diltiazem HCl 125 mg/ Sodium 125 mls @ 5 mls/hr 12/30/18 03:26 12/30/18 08:00 Chloride IV 12/31/18 03:25 15 mg/hr .Q24H ONE 15 mls/hr Titration Protocol 5 MG/HR Ipratropium [place] 0.5 mg 12/25/18 20:00 12/30/18 07:54 Atrovent IH 0.5 mg RQ6 NELLI Administration Lactic Acid 1 applic 12/21/18 17:00 12/30/18 08:24 Lac-Hydrin 12% Lotion (225 G) TOP 1 applic BID NELLI Administration Lactulose 10 gm 12/27/18 18:15 Enulose PO ONCE NELLI Levalbuterol HCl 1.25 mg 12/25/18 16:00 12/30/18 07:55 Xopenex INH 1.25 mg RQ8 NELLI Administration Metoprolol Tartrate 25 mg 12/28/18 21:00 12/30/18 08:24 Lopressor PO 25 mg Q12 NELLI Administration Promethazine HCl/Dextromethorphan 5 ml 12/15/18 20:41 12/15/18 22:00 Phenergan Dm Syrup PO 5 ml Q6 PRN Administration Cough and congestion - Patient Studies Lab Studies: Lab Studies 12/30/18 12/30/18 12/30/18 Range/Units 04:55 04:55 04:55 WBC 6.1 (4.8-10.8) K/uL RBC 2.87 L (4.40-5.90) Mil/uL Hgb 9.4 L (12.0-18.0) g/dL Hct 28.7 L (35.0-51.0) % MCV 99.8 H (80.0-94.0) fl MCH 32.8 H (27.0-31.0) pg MCHC 32.8 L (33.0-37.0) g/dL RDW 14.9 H (11.5-14.5) % Plt Count 197 (130-400) K/uL MPV 8.2 (7.2-11.7) fl Neut % (Auto) 72.8 (50.0-75.0) % Lymph % (Auto) 10.9 L (20.0-40.0) % [place] % (Auto) 10.9 H (0.0-10.0) % Eos % (Auto) 4.5 H (0.0-4.0) % Baso % (Auto) 0.9 (0.0-2.0) % Neut # (Auto) 4.5 (1.8-7.0) K/uL Lymph # (Auto) 0.7 L (1.0-4.3) K/uL [place] # (Auto) 0.7 (0.0-0.8) K/uL Eos # (Auto) 0.3 (0.0-0.7) K/uL Baso # (Auto) 0.1 (0.0-0.2) K/uL pCO2 (35-45) mm/Hg pO2 (80-100) mm/Hg HCO3 (21-28) mmol/L ABG pH (7.35-7.45) ABG Total CO2 (22-28) mmol/L ABG O2 Saturation (95-98) % ABG O2 Content (15-23) ML/dL ABG Base Excess (-2.0-3.0) mmol/L ABG Hemoglobin (11.7-17.4) g/dL ABG Carboxyhemoglobin (0.5-1.5) % POC ABG HHb (Measured) (0.0-5.0) % ABG Methemoglobin (0.0-3.0) % ABG O2 Capacity (16-24) mL/dL [place] Test A-a O2 Difference mm/Hg Hgb O2 Saturation (95.0-98.0) % Vent Mode Mechanical Rate FiO2 % Tidal Volume PEEP Sodium 140 (132-148) mmol/l Potassium 4.2 (3.6-5.0) MMOL/L Chloride 102 (98-107) mmol/L Carbon Dioxide 38 H (22-30) mmol/L Anion Gap 4 L (10-20) BUN 41 H (9-20) mg/dl Creatinine 0.8 (0.8-1.5) mg/dl Est GFR ( Amer) > 60 Est GFR (Non-Af Amer) > 60 Random Glucose 109 (75-110) mg/dL Calcium 8.2 L (8.4-10.2) mg/dL Total Bilirubin 0.4 (0.2-1.3) mg/dl AST 41 (17-59) U/L ALT 48 (21-72) U/L Alkaline Phosphatase 175 H (38-126) U/L Total Protein 5.1 L (6.3-8.2) G/DL Albumin 2.4 L (3.5-5.0) g/dL Globulin 2.8 (2.2-3.9) gm/dL Albumin/Globulin Ratio 0.9 L (1.0-2.1) Vancomycin Trough 12.8 H (5.0-10.0) ug/mL 12/30/18 Range/Units 04:53 WBC (4.8-10.8) K/uL RBC (4.40-5.90) Mil/uL Hgb (12.0-18.0) g/dL Hct (35.0-51.0) % MCV (80.0-94.0) fl MCH (27.0-31.0) pg MCHC (33.0-37.0) g/dL RDW (11.5-14.5) % Plt Count (130-400) K/uL MPV (7.2-11.7) fl Neut % (Auto) (50.0-75.0) % Lymph % (Auto) (20.0-40.0) % [place] % (Auto) (0.0-10.0) % Eos % (Auto) (0.0-4.0) % Baso % (Auto) (0.0-2.0) % Neut # (Auto) (1.8-7.0) K/uL Lymph # (Auto) (1.0-4.3) K/uL [place] # (Auto) (0.0-0.8) K/uL Eos # (Auto) (0.0-0.7) K/uL Baso # (Auto) (0.0-0.2) K/uL pCO2 53 H (35-45) mm/Hg pO2 156 H (80-100) mm/Hg HCO3 33.7 H (21-28) mmol/L ABG pH 7.45 (7.35-7.45) ABG Total CO2 38.4 H (22-28) mmol/L ABG O2 Saturation 99.6 H (95-98) % ABG O2 Content 14.7 L (15-23) ML/dL ABG Base Excess 11.2 H (-2.0-3.0) mmol/L ABG Hemoglobin 10.6 L (11.7-17.4) g/dL ABG Carboxyhemoglobin 1.4 (0.5-1.5) % POC ABG HHb (Measured) 0.4 (0.0-5.0) % ABG Methemoglobin 1.5 (0.0-3.0) % ABG O2 Capacity 14.8 L (16-24) mL/dL [place] Test Yes A-a O2 Difference 134.0 mm/Hg Hgb O2 Saturation 96.7 (95.0-98.0) % Vent Mode A/c Mechanical Rate 12 FiO2 50.0 % Tidal Volume 500 PEEP 5 Sodium (132-148) mmol/l Potassium (3.6-5.0) MMOL/L Chloride (98-107) mmol/L Carbon Dioxide (22-30) mmol/L Anion Gap (10-20) BUN (9-20) mg/dl Creatinine (0.8-1.5) mg/dl Est GFR ( Amer) Est GFR (Non-Af Amer) Random Glucose (75-110) mg/dL Calcium (8.4-10.2) mg/dL Total Bilirubin (0.2-1.3) mg/dl AST (17-59) U/L ALT (21-72) U/L Alkaline Phosphatase (38-126) U/L Total Protein (6.3-8.2) G/DL Albumin (3.5-5.0) g/dL Globulin (2.2-3.9) gm/dL Albumin/Globulin Ratio (1.0-2.1) Vancomycin Trough (5.0-10.0) ug/mL Laboratory Results - last 24 hr 12/30/18 12/30/18 12/30/18 04:53 04:55 04:55 WBC 6.1 RBC 2.87 L Hgb 9.4 L Hct 28.7 L MCV 99.8 H MCH 32.8 H MCHC 32.8 L RDW 14.9 H Plt Count 197 MPV 8.2 Neut % (Auto) 72.8 Lymph % (Auto) 10.9 L [place] % (Auto) 10.9 H Eos % (Auto) 4.5 H Baso % (Auto) 0.9 Neut # (Auto) 4.5 Lymph # (Auto) 0.7 L [place] # (Auto) 0.7 Eos # (Auto) 0.3 Baso # (Auto) 0.1 pCO2 53 H pO2 156 H HCO3 33.7 H ABG pH 7.45 ABG Total CO2 38.4 H ABG O2 Saturation 99.6 H ABG O2 Content 14.7 L ABG Base Excess 11.2 H ABG Hemoglobin 10.6 L ABG Carboxyhemoglobin 1.4 POC ABG HHb (Measured) 0.4 ABG Methemoglobin 1.5 ABG O2 Capacity 14.8 L [place] Test Yes A-a O2 Difference 134.0 Hgb O2 Saturation 96.7 Vent Mode A/c Mechanical Rate 12 FiO2 50.0 Tidal Volume 500 PEEP 5 Sodium Potassium Chloride Carbon Dioxide Anion Gap BUN Creatinine Est GFR ( Amer) Est GFR (Non-Af Amer) Random Glucose Calcium Total Bilirubin AST ALT Alkaline Phosphatase Total Protein Albumin Globulin Albumin/Globulin Ratio Vancomycin Trough 12.8 H 12/30/18 04:55 WBC RBC Hgb Hct MCV MCH MCHC RDW Plt Count MPV Neut % (Auto) Lymph % (Auto) [place] % (Auto) Eos % (Auto) Baso % (Auto) Neut # (Auto) Lymph # (Auto) [place] # (Auto) Eos # (Auto) Baso # (Auto) pCO2 pO2 HCO3 ABG pH ABG Total CO2 ABG O2 Saturation ABG O2 Content ABG Base Excess ABG Hemoglobin ABG Carboxyhemoglobin POC ABG HHb (Measured) ABG Methemoglobin ABG O2 Capacity [place] Test A-a O2 Difference Hgb O2 Saturation Vent Mode Mechanical Rate FiO2 Tidal Volume PEEP Sodium 140 Potassium 4.2 Chloride 102 Carbon Dioxide 38 H Anion Gap 4 L BUN 41 H Creatinine 0.8 Est GFR ( Amer) > 60 Est GFR (Non-Af Amer) > 60 Random Glucose 109 Calcium 8.2 L Total Bilirubin 0.4 AST 41 ALT 48 Alkaline Phosphatase 175 H Total Protein 5.1 L Albumin 2.4 L Globulin 2.8 Albumin/Globulin Ratio 0.9 L Vancomycin Trough Radiology Impressions: Radiology Impressions Chest X-Ray 12/30/18 06:00 IMPRESSION: Persistent airspace disease in the right lower lobe. Stable layering pleural effusions. Endotracheal tube remains high in position and further advancement is recommended. Stable position of nasogastric tube and right PICC line. Fingerstick Blood Sugar Results: 122 <Main Roldan - Last Filed: 12/30/18 17:57> Assessment/Plan - Assessment and Plan (Free Text) Plan: Attestation: Patient seen and examined at the bedside with Resident Dr. Leon Londono; and I agree with her outline of plans and management documented above as discussed on AM rounds; reflecting my review of all applicable clinical data, and participation in the care of the patient throughout the day in ICU; today, December 30, 2018.
[2018-12-30] MEDS ORDERED: Amiodarone 150 mg/D5W 100 ml 150 MG/100 ML BAG IV ONE (13:00)
[2018-12-30] MEDS ORDERED: Amiodarone 450 MG in Sodium Chloride 0.9% 250 ML IV SCH (13:00)
--- NOTE | 2018-12-30 15:27 | CP.PCM.PN ---
Subjective - Date & Time of Evaluation Date of Evaluation: 12/30/18 Time of Evaluation: 11:00 - Subjective Subjective: F/U Respiratory Failure extubated, on V Mask awake, follows commands Objective - Vital Signs/Intake and Output Vital Signs (last 24 hours): Temp Pulse Resp BP Pulse Ox 98.5 F 146 H 14 134/86 96 12/30/18 12:00 12/30/18 14:00 12/30/18 14:00 12/30/18 14:00 12/30/18 14:00 Intake and Output: 12/30/18 12/30/18 06:59 18:59 Intake Total 2002.7 896 Output Total 1500 1800 Balance 502.7 -904 - Medications Medications: Current Medications Acetaminophen (Tylenol 325mg Tab) 650 mg PO Q6 PRN PRN Reason: Pain, Mild (1-3) Last Admin: 12/24/18 20:36 Dose: 650 mg Acetylcysteine (Mucomyst 10% 4ml) 2 ml IH RBID NELLI Last Admin: 12/30/18 07:54 Dose: 2 ml Albuterol/Ipratropium (Duoneb 3 Mg/0.5 Mg (3 Ml) Ud) 3 ml INH RQID NELLI Artificial Tears (Artificial Tears) 2 drop OU Q4 PRN PRN Reason: Dry eyes Last Admin: 12/30/18 05:51 Dose: 2 drop Docusate Sodium (Colace) 100 mg PO DAILY [facility] Last Admin: 12/23/18 10:29 Dose: 100 mg Docusate Sodium (Colace Liquid) 100 mg PO BID [facility] Last Admin: 12/30/18 08:23 Dose: Not Given Enoxaparin Sodium (Lovenox) 110 mg SC Q12 NELLI; Protocol Last Admin: 12/30/18 08:25 Dose: 110 mg Famotidine (Pepcid) 20 mg IVP Q12 NELLI Last Admin: 12/30/18 08:38 Dose: 20 mg Meropenem 1 gm/ Sodium (Chloride) 100 mls @ 100 mls/hr IVPB Q8 NELLI; Protocol Last Admin: 12/30/18 08:26 Dose: 100 mls/hr Vancomycin HCl 1 gm/ Sodium (Chloride) 250 mls @ 166.667 mls/hr IVPB Q12 NELLI; Protocol Last Admin: 12/30/18 08:27 Dose: 166.667 mls/hr Metronidazole (Flagyl 500mg/100ml Ns) 100 mls @ 100 mls/hr IVPB Q12 [facility]; Protocol Last Admin: 12/30/18 10:22 Dose: 100 mls/hr Amiodarone HCl 450 mg/ Sodium (Chloride) 259 mls @ 34.53 mls/hr IV .Q7H31M [facility]; Protocol Last Admin: 12/30/18 14:35 Dose: 1 mg/min, 34.53 mls/hr Lactic Acid (Lac-Hydrin 12% Lotion (225 G)) 1 applic TOP BID NELLI Last Admin: 12/30/18 08:24 Dose: 1 applic Metoprolol Tartrate (Lopressor) 50 mg PO Q12 NELLI Promethazine HCl/Dextromethorphan (Phenergan Dm Syrup) 5 ml PO Q6 PRN PRN Reason: Cough and congestion Last Admin: 12/15/18 22:00 Dose: 5 ml - Labs Labs: 12/30/18 04:55 12/30/18 04:55 PT 16.8 Seconds (9.8-13.1) H 12/25/18 05:40 INR 1.5 12/25/18 05:40 APTT 43.1 Seconds (25.6-37.1) H 12/25/18 05:40 - Constitutional Appears: Chronically Ill, Other (Intubated) - Head Exam Head Exam: NORMAL INSPECTION - Eye Exam Eye Exam: PERRL - ENT Exam Additional comments: Extubated, on VM 40% - Neck Exam Neck Exam: Normal Inspection - Respiratory Exam Respiratory Exam: Decreased Breath Sounds (at bases L>R), Rhonchi - Cardiovascular Exam Cardiovascular Exam: Tachycardia, Irregular Rhythm, Murmur (systolic ) - GI/Abdominal Exam GI & Abdominal Exam: Soft, Normal Bowel Sounds - Exam Additional comments: Cifuentes Cath - Extremities Exam Additional comments: Edema UE's and LE's. - Back Exam Back Exam: NORMAL INSPECTION - Skin Skin Exam: Warm Assessment and Plan (1) Aspiration pneumonia of right lung Status: Acute (2) Multifocal pneumonia Status: Acute (3) Pleural effusion, bilateral Status: Acute (4) Respiratory failure Status: Resolved (5) COPD (chronic obstructive pulmonary disease) Status: Chronic (6) Atrial fibrillation with RVR Status: Acute - Assessment and Plan (Free Text) Plan: extubated,continue DuoNeb, Mucomyst, Merren and rest of Tx, Critical care time: 30 min.
[2018-12-30] MEDS: Albuterol-Ipratrop 3 mg / 0.5 (3 ml) UD INH SCH ×2 (15:46→19:13)
[2018-12-30] MEDS ORDERED: Metoprolol 1 mg/ml Inj IVP ONE (17:40)
[2018-12-30] MEDS ORDERED: Digoxin 500 mcg/2ml (0.5 mg/2ml) Inj ONE (18:39)
[2018-12-30] MEDS ORDERED: Digoxin 500 mcg/2ml (0.5 mg/2ml) Inj IVP ONE (18:40)
--- NOTE | 2018-12-30 19:20 | CP.PCM.PN ---
Subjective - Date & Time of Evaluation Date of Evaluation: 12/30/18 Time of Evaluation: 18:20 - Subjective Subjective: patient is extubated. cardizem was d/chris and changed to amiodarone. Objective - Vital Signs/Intake and Output Vital Signs (last 24 hours): Temp Pulse Resp BP Pulse Ox 99.1 F 141 H 18 135/79 97 12/30/18 16:00 12/30/18 18:19 12/30/18 18:00 12/30/18 18:19 12/30/18 18:00 Intake and Output: 12/30/18 12/31/18 18:59 06:59 Intake Total 1228 Output Total 3000 Balance -1772 - Medications Medications: Current Medications Acetaminophen (Tylenol 325mg Tab) 650 mg PO Q6 PRN PRN Reason: Pain, Mild (1-3) Last Admin: 12/24/18 20:36 Dose: 650 mg Acetylcysteine (Mucomyst 10% 4ml) 2 ml IH RBID [facility] Last Admin: 12/30/18 19:13 Dose: 2 ml Albuterol/Ipratropium (Duoneb 3 Mg/0.5 Mg (3 Ml) Ud) 3 ml INH RQID NELLI Last Admin: 12/30/18 19:13 Dose: 3 ml Artificial Tears (Artificial Tears) 2 drop OU Q4 PRN PRN Reason: Dry eyes Last Admin: 12/30/18 05:51 Dose: 2 drop Diltiazem HCl (Cardizem) 10 mg IVP ONCE ONE Stop: 12/30/18 19:17 Docusate Sodium (Colace) 100 mg PO DAILY [facility] Last Admin: 12/23/18 10:29 Dose: 100 mg Docusate Sodium (Colace Liquid) 100 mg PO BID [facility] Last Admin: 12/30/18 16:34 Dose: Not Given Enoxaparin Sodium (Lovenox) 110 mg SC Q12 NELLI; Protocol Last Admin: 12/30/18 08:25 Dose: 110 mg Famotidine (Pepcid) 20 mg IVP Q12 [facility] Last Admin: 12/30/18 08:38 Dose: 20 mg Meropenem 1 gm/ Sodium (Chloride) 100 mls @ 100 mls/hr IVPB Q8 [facility]; Protocol Last Admin: 12/30/18 16:34 Dose: 100 mls/hr Vancomycin HCl 1 gm/ Sodium (Chloride) 250 mls @ 166.667 mls/hr IVPB Q12 NELLI; Protocol Last Admin: 12/30/18 08:27 Dose: 166.667 mls/hr Metronidazole (Flagyl 500mg/100ml Ns) 100 mls @ 100 mls/hr IVPB Q12 NELLI; Protocol Last Admin: 12/30/18 10:22 Dose: 100 mls/hr Amiodarone HCl 450 mg/ Sodium (Chloride) 259 mls @ 34.53 mls/hr IV .Q7H31M [facility]; Protocol Last Admin: 12/30/18 14:35 Dose: 1 mg/min, 34.53 mls/hr Lactic Acid (Lac-Hydrin 12% Lotion (225 G)) 1 applic TOP BID NELLI Last Admin: 12/30/18 16:35 Dose: 1 applic Metoprolol Tartrate (Lopressor) 50 mg PO Q12 NELLI Promethazine HCl/Dextromethorphan (Phenergan Dm Syrup) 5 ml PO Q6 PRN PRN Reason: Cough and congestion Last Admin: 12/15/18 22:00 Dose: 5 ml - Labs Labs: 12/30/18 04:55 12/30/18 04:55 PT 16.8 Seconds (9.8-13.1) H 12/25/18 05:40 INR 1.5 12/25/18 05:40 APTT 43.1 Seconds (25.6-37.1) H 12/25/18 05:40 - Constitutional Appears: Chronically Ill - Head Exam Head Exam: NORMAL INSPECTION - Eye Exam Eye Exam: Normal appearance - ENT Exam ENT Exam: Mucous Membranes Moist - Neck Exam Neck Exam: Full ROM - Respiratory Exam Respiratory Exam: Decreased Breath Sounds - Cardiovascular Exam Cardiovascular Exam: Tachycardia, Irregular Rhythm - GI/Abdominal Exam GI & Abdominal Exam: Normal Bowel Sounds - Rectal Exam Rectal Exam: Deferred - Extremities Exam Extremities Exam: absent: Pedal Edema - Back Exam Back Exam: NORMAL INSPECTION - Neurological Exam Neurological Exam: Alert - Psychiatric Exam Psychiatric exam: Normal Affect - Skin Skin Exam: Normal Color Assessment and Plan (1) Atrial fibrillation with RVR Assessment & Plan: I recommend restarting cardizem drip as patient is still uncontrolled. I recommend digoxin IV. Status: Acute
--- NOTE | 2018-12-30 23:19 | CP.PCM.PN ---
Subjective - Date & Time of Evaluation Date of Evaluation: 12/30/18 Time of Evaluation: 22:45 - Subjective Subjective: S/P Extubation today. Objective - Vital Signs/Intake and Output Vital Signs (last 24 hours): Temp Pulse Resp BP Pulse Ox 99.3 F 122 H 17 140/75 91 L 12/30/18 20:00 12/30/18 22:00 12/30/18 22:00 12/30/18 22:00 12/30/18 22:00 Intake and Output: 12/30/18 12/31/18 18:59 06:59 Intake Total 1228 100 Output Total 3000 Balance -1772 100 - Medications Medications: Current Medications Acetaminophen (Tylenol 325mg Tab) 650 mg PO Q6 PRN PRN Reason: Pain, Mild (1-3) Last Admin: 12/24/18 20:36 Dose: 650 mg Acetylcysteine (Mucomyst 10% 4ml) 2 ml IH RBID [facility] Last Admin: 12/30/18 19:13 Dose: 2 ml Albuterol/Ipratropium (Duoneb 3 Mg/0.5 Mg (3 Ml) Ud) 3 ml INH RQID [facility] Last Admin: 12/30/18 19:13 Dose: 3 ml Artificial Tears (Artificial Tears) 2 drop OU Q4 PRN PRN Reason: Dry eyes Last Admin: 12/30/18 20:38 Dose: 2 drop Docusate Sodium (Colace) 100 mg PO DAILY [facility] Last Admin: 12/23/18 10:29 Dose: 100 mg Docusate Sodium (Colace Liquid) 100 mg PO BID [facility] Last Admin: 12/30/18 16:34 Dose: Not Given Enoxaparin Sodium (Lovenox) 110 mg SC Q12 [facility]; Protocol Last Admin: 12/30/18 08:25 Dose: 110 mg Famotidine (Pepcid) 20 mg IVP Q12 [facility] Last Admin: 12/30/18 20:36 Dose: 20 mg Meropenem 1 gm/ Sodium (Chloride) 100 mls @ 100 mls/hr IVPB Q8 [facility]; Protocol Last Admin: 12/30/18 16:34 Dose: 100 mls/hr Vancomycin HCl 1 gm/ Sodium (Chloride) 250 mls @ 166.667 mls/hr IVPB Q12 [facility]; Protocol Last Admin: 12/30/18 20:37 Dose: 166.667 mls/hr Metronidazole (Flagyl 500mg/100ml Ns) 100 mls @ 100 mls/hr IVPB Q12 [facility]; Protocol Last Admin: 12/30/18 20:36 Dose: 100 mls/hr Diltiazem HCl 125 mg/ Sodium (Chloride) 125 mls @ 15 mls/hr IV .Q8H20M ONE; Protocol Stop: 12/31/18 03:36 Last Admin: 12/30/18 20:35 Dose: 15 mg/hr, 15 mls/hr Lactic Acid (Lac-Hydrin 12% Lotion (225 G)) 1 applic TOP BID [facility] Last Admin: 12/30/18 16:35 Dose: 1 applic Metoprolol Tartrate (Lopressor) 50 mg PO Q12 [facility] Last Admin: 12/30/18 20:37 Dose: Not Given Promethazine HCl/Dextromethorphan (Phenergan Dm Syrup) 5 ml PO Q6 PRN PRN Reason: Cough and congestion Last Admin: 12/15/18 22:00 Dose: 5 ml - Labs Labs: 12/30/18 04:55 12/30/18 04:55 PT 16.8 Seconds (9.8-13.1) H 12/25/18 05:40 INR 1.5 12/25/18 05:40 APTT 43.1 Seconds (25.6-37.1) H 12/25/18 05:40 Assessment and Plan (1) Aspiration pneumonia of right lung Status: Acute (2) Atrial fibrillation with RVR Status: Acute (3) Multifocal pneumonia Status: Acute (4) Pleural effusion, bilateral Status: Acute (5) CHF (congestive heart failure) Status: Acute (6) Hypertension Status: Chronic (7) Acute respiratory failure with hypoxia and hypercapnia Assessment & Plan: Status post intubation, and extubated today Status: Acute - Assessment and Plan (Free Text) Plan: Continue Ventimask. IV Cardizem infusion Beta-jami IV antibiotics Input from consultants alexandra queen
[2018-12-31 06:25] LABS: BASO # 0.1 K/uL (0.0-0.2); BASO % 0.9 % (0.0-2.0); EOS # 0.1 K/uL (0.0-0.7); EOS % 1.4 % (0.0-4.0); HEMOGLOBIN 9.8 g/dL (12.0-18.0); LYMPH # 0.7 K/uL (1.0-4.3); LYMPH % 8.7 % (20.0-40.0); MEAN CELL VOLUME 99.8 fl (80.0-94.0); MEAN CORPUSCULAR HGB CONC 33.1 g/dL (33.0-37.0); MONO # 0.9 K/uL (0.0-0.8); MONO % 10.8 % (0.0-10.0); NEUT # 6.2 K/uL (1.8-7.0); NEUT % 78.2 % (50.0-75.0); PLATELET COUNT 259 K/uL (130-400); RBC 2.95 Mil/uL (4.40-5.90); RED CELL DISTRIBUTION WIDTH 14.8 % (11.5-14.5); WHITE BLOOD COUNT 7.9 K/uL (4.8-10.8)
[2018-12-31 06:31] LABS: INR 1.3; PROTHROMBIN TIME 14.3 Seconds (9.8-13.1)
[2018-12-31 06:32] LABS: ALB/GLOB RATIO 0.9 (1.0-2.1); ALBUMIN 2.7 g/dL (3.5-5.0); ALT/SGPT 47 U/L (21-72); AST/SGOT 48 U/L (17-59); BLOOD UREA NITROGEN 36 mg/dl (9-20); CALCIUM 8.5 mg/dL (8.4-10.2); GFR NON-AFRICAN AMERICAN > 60
[2018-12-31 06:33] LABS: PARTIAL THROMBOPLASTIN TIME 36.7 Seconds (25.6-37.1)
[2018-12-31] MEDS: Acetylcysteine 10% 4 ML IH SCH ×2 (07:34→19:09)
[2018-12-31] MEDS: Albuterol-Ipratrop 3 mg / 0.5 (3 ml) UD INH SCH ×4 (07:34→19:09)
--- NOTE | 2018-12-31 07:56 | CP.PCM.PN ---
Subjective - Date & Time of Evaluation Date of Evaluation: 12/31/18 Time of Evaluation: 07:30 - Subjective Subjective: aman has no current complaints Objective - Vital Signs/Intake and Output Vital Signs (last 24 hours): Temp Pulse Resp BP Pulse Ox 99.3 F 112 H 17 136/88 97 12/30/18 20:00 12/30/18 23:00 12/30/18 23:00 12/30/18 23:00 12/30/18 23:00 Intake and Output: 12/31/18 12/31/18 06:59 18:59 Intake Total 225 Output Total 2800 Balance -2575 - Medications Medications: Current Medications Acetaminophen (Tylenol 325mg Tab) 650 mg PO Q6 PRN PRN Reason: Pain, Mild (1-3) Last Admin: 12/24/18 20:36 Dose: 650 mg Acetylcysteine (Mucomyst 10% 4ml) 2 ml IH RBID [facility] Last Admin: 12/31/18 07:34 Dose: 2 ml Albuterol/Ipratropium (Duoneb 3 Mg/0.5 Mg (3 Ml) Ud) 3 ml INH RQID [facility] Last Admin: 12/31/18 07:34 Dose: 3 ml Artificial Tears (Artificial Tears) 2 drop OU Q4 PRN PRN Reason: Dry eyes Last Admin: 12/30/18 20:38 Dose: 2 drop Docusate Sodium (Colace) 100 mg PO DAILY [facility] Last Admin: 12/23/18 10:29 Dose: 100 mg Docusate Sodium (Colace Liquid) 100 mg PO BID [facility] Last Admin: 12/30/18 16:34 Dose: Not Given Enoxaparin Sodium (Lovenox) 110 mg SC Q12 [facility]; Protocol Last Admin: 12/30/18 08:25 Dose: 110 mg Famotidine (Pepcid) 20 mg IVP Q12 [facility] Last Admin: 12/30/18 20:36 Dose: 20 mg Meropenem 1 gm/ Sodium (Chloride) 100 mls @ 100 mls/hr IVPB Q8 [facility]; Protocol Last Admin: 12/31/18 00:00 Dose: 100 mls/hr Vancomycin HCl 1 gm/ Sodium (Chloride) 250 mls @ 166.667 mls/hr IVPB Q12 [facility]; Protocol Last Admin: 12/30/18 20:37 Dose: 166.667 mls/hr Metronidazole (Flagyl 500mg/100ml Ns) 100 mls @ 100 mls/hr IVPB Q12 [facility]; Protocol Last Admin: 12/30/18 20:36 Dose: 100 mls/hr Lactic Acid (Lac-Hydrin 12% Lotion (225 G)) 1 applic TOP BID [facility] Last Admin: 12/30/18 16:35 Dose: 1 applic Metoprolol Tartrate (Lopressor) 50 mg PO Q12 [facility] Last Admin: 12/30/18 20:37 Dose: Not Given Promethazine HCl/Dextromethorphan (Phenergan Dm Syrup) 5 ml PO Q6 PRN PRN Reason: Cough and congestion Last Admin: 12/15/18 22:00 Dose: 5 ml - Labs Labs: 12/31/18 06:00 12/31/18 06:00 PT 14.3 Seconds (9.8-13.1) H 12/31/18 06:00 INR 1.3 12/31/18 06:00 APTT 36.7 Seconds (25.6-37.1) 12/31/18 06:00 - Constitutional Appears: Non-toxic - Head Exam Head Exam: NORMAL INSPECTION - Eye Exam Eye Exam: Normal appearance - ENT Exam ENT Exam: Mucous Membranes Moist - Neck Exam Neck Exam: Full ROM - Respiratory Exam Respiratory Exam: NORMAL BREATHING PATTERN - Cardiovascular Exam Cardiovascular Exam: REGULAR RHYTHM - GI/Abdominal Exam GI & Abdominal Exam: Normal Bowel Sounds - Rectal Exam Rectal Exam: Deferred - Extremities Exam Extremities Exam: Pedal Edema - Back Exam Back Exam: NORMAL INSPECTION - Neurological Exam Neurological Exam: Alert - Psychiatric Exam Psychiatric exam: absent: Normal Affect - Skin Skin Exam: Normal Color Assessment and Plan (1) Atrial fibrillation with RVR Assessment & Plan: currently on IV cardizem. recommend medical therapy. await swallow eval. can start oral meds if passes swallow Status: Acute
[2018-12-31] MEDS: Meropenem 1 GM in Sodium Chloride 0.9% 100 ML IVPB SCH ×3 (08:17→16:27)
--- NOTE | 2018-12-31 08:43 | CP.CCUPN ---
<Cate Londono - Last Filed: 12/31/18 15:31> CCU Subjective - Physician Review Subjective (Free Text): Patient was successfully extubated yesterday Heart rate that went up to the 150s-160s yesterday. Loading dose of Amio given followed by Amio drip As per cardiology, pt was given bolus of cardizem and restarted on drip. No acute overnight events. patient continues to endorse cough, feeling better otherwise Swallow eval recs appreciated. PT/OT to see patient today Heart rate 90-120's, O2 100 on 3L O2, no acute distress at this time Labs and imaging reviewed. L large pleural effusion noted Edema mild improvement, c/w diuresis Assessment/Plan: 1. A Fib, new onset -cardio on board -c/w Cardizem drip as per cardiology recs -c/w Lovenox 110 SC 2. Pleural effusion -CXR sig for large L sided pleural effusion -thoracentesis later today -fluid analysis -c/w diuresis 3.Acute respiratory failure, resolved -likely 2/2 to pneumonia, pleural effusion -successfully extubated -ID on board, d/c vanco and flagyl -Jacky on D9, 5 more days (until 01/05) -duonab inh treatments 4. Altered mental status, resolved -likely 2/2 to metabolic encephalopathy -CT head no acute pathology 5. Anasarca -likely 2/2 to fluid overload and hypoalbuminia -tolerating diuresis, c/w IV lasix and metalazone -cont to monitor urine output 6. Anemia, acute -likely 2/2 to bleeding from femoral line site -h/h stable at this time 7. Skin moles -black moles noted in skin (largest approx 0.5cm) -consider skin biopsy 8. Hematuria -improving -likely 2/2 to trauma while rowell cath inserted -will d/c rowell tomorrow 01/01 9. Diet -swallow eval recs appreciated, pureed diet with honey thick liquids 10. DVT prolx -Lovenox SC CCU Objective - Vital Signs / Intake & Output Vital Signs (Last 4 hours): Vital Signs Temp Pulse Resp BP Pulse Ox 12/31/18 08:00 99.0 F 118 H 15 149/69 98 12/31/18 07:00 116 H 14 151/77 H 97 12/31/18 06:00 105 H 14 147/83 97 12/31/18 05:00 98 H 15 141/80 99 Intake and Output (Last 8hrs): Intake & Output 12/30/18 12/31/18 12/31/18 22:59 06:59 14:59 Intake Total 432 250 30 Output Total 1200 2800 Balance -768 -2550 30 Weight 104.099 kg 103.873 kg Intake: IV 132 125 Intake, Piggyback 300 125 30 Output: Urine 1200 2800 Urethral (Rowell) 1200 2800 Other: # Bowel Movements 1 - Physical Exam Head: Positive for: Atraumatic, Normocephalic Pupils: Positive for: PERRL Extroacular Muscles: Positive for: EOMI Mouth: Positive for: Other (mask on) Respiratory/Chest: Positive for: Rhonchi, Other (course breath sounds, congested, rales in the lower lobes L>R). Negative for: Accessory Muscle Use, Wheezes Cardiovascular: Positive for: Normal S1, S2, Irregular Rhythm, Tachycardic Abdomen: Positive for: Distention, Normal Bowel Sounds. Negative for: Tenderness, Peritoneal Signs Genitourinary Male: Positive for: Other (scrotal edema, mild improvement, scrotal elevation ) Upper Extremity: Positive for: Edema Lower Extremity: Positive for: Edema, Other (edema 3+ pitting up to the sacrum ) Skin: Positive for: Rashes (tiny multiple dark spots in the body, looks like moles some with erythematous base), Other (multiple tattoes noted throughout the body) Psychiatric: Positive for: Alert. Negative for: Oriented x 3 - Medications Active Medications: Active Medications Generic Name Dose Route Start Last Admin Trade Name Freq PRN Reason Stop Dose Admin Acetaminophen 650 mg 12/16/18 07:14 12/24/18 20:36 Tylenol 325mg Tab PO 650 mg Q6 PRN Administration Pain, Mild (1-3) Acetylcysteine 2 ml 12/23/18 15:13 12/31/18 07:34 Mucomyst 10% 4ml IH 2 ml RBID [facility] Administration Albuterol/Ipratropium 3 ml 12/30/18 16:00 12/31/18 07:34 Duoneb 3 Mg/0.5 Mg (3 Ml) Ud INH 3 ml RQID [facility] Administration Artificial Tears 2 drop 12/28/18 20:32 12/30/18 20:38 Artificial Tears OU 2 drop Q4 PRN Administration Dry eyes Docusate Sodium 100 mg 12/18/18 09:00 12/23/18 10:29 Colace PO 100 mg DAILY [facility] Administration Docusate Sodium 100 mg 12/29/18 09:00 12/31/18 08:38 Colace Liquid PO 100 mg BID [facility] Administration Enoxaparin Sodium 110 mg 12/29/18 21:00 12/30/18 08:25 Lovenox SC 110 mg Q12 [facility] Administration Protocol Famotidine 20 mg 12/23/18 21:00 12/31/18 08:37 Pepcid IVP 20 mg Q12 [facility] Administration Meropenem 1 gm/ Sodium 100 mls @ 100 mls/hr 12/23/18 17:00 12/31/18 08:17 Chloride IVPB 100 mls/hr Q8 [facility] Administration Protocol Vancomycin HCl 1 gm/ Sodium 250 mls @ 166.667 mls/hr 12/23/18 21:00 12/30/18 20:37 Chloride IVPB 166.667 mls/hr Q12 [facility] Administration Protocol Metronidazole 100 mls @ 100 mls/hr 12/29/18 21:00 12/30/18 20:36 Flagyl 500mg/100ml Ns IVPB 100 mls/hr Q12 [facility] Administration Protocol Diltiazem HCl 125 mg/ Sodium 125 mls @ 15 mls/hr 12/31/18 08:06 Chloride IV 12/31/18 16:25 .Q8H20M ONE Protocol 15 MG/HR Lactic Acid 1 applic 12/21/18 17:00 12/31/18 08:18 Lac-Hydrin 12% Lotion (225 G) TOP 1 applic BID [facility] Administration Metoprolol Tartrate 50 mg 12/30/18 21:00 12/30/18 20:37 Lopressor PO Not Given Q12 [facility] Promethazine HCl/Dextromethorphan 5 ml 12/15/18 20:41 12/15/18 22:00 Phenergan Dm Syrup PO 5 ml Q6 PRN Administration Cough and congestion - Patient Studies Lab Studies: Lab Studies 12/31/18 12/31/18 12/31/18 Range/Units 06:00 06:00 06:00 WBC 7.9 (4.8-10.8) K/uL RBC 2.95 L (4.40-5.90) Mil/uL Hgb 9.8 L (12.0-18.0) g/dL Hct 29.5 L (35.0-51.0) % MCV 99.8 H (80.0-94.0) fl MCH 33.0 H (27.0-31.0) pg MCHC 33.1 (33.0-37.0) g/dL RDW 14.8 H (11.5-14.5) % Plt Count 259 (130-400) K/uL MPV 8.0 (7.2-11.7) fl Neut % (Auto) 78.2 H (50.0-75.0) % Lymph % (Auto) 8.7 L (20.0-40.0) % [place] % (Auto) 10.8 H (0.0-10.0) % Eos % (Auto) 1.4 (0.0-4.0) % Baso % (Auto) 0.9 (0.0-2.0) % Neut # (Auto) 6.2 (1.8-7.0) K/uL Lymph # (Auto) 0.7 L (1.0-4.3) K/uL [place] # (Auto) 0.9 H (0.0-0.8) K/uL Eos # (Auto) 0.1 (0.0-0.7) K/uL Baso # (Auto) 0.1 (0.0-0.2) K/uL PT 14.3 H (9.8-13.1) Seconds INR 1.3 APTT 36.7 (25.6-37.1) Seconds Sodium 140 (132-148) mmol/l Potassium 4.3 (3.6-5.0) MMOL/L Chloride 101 (98-107) mmol/L Carbon Dioxide 37 H (22-30) mmol/L Anion Gap 6 L (10-20) BUN 36 H (9-20) mg/dl Creatinine 0.8 (0.8-1.5) mg/dl Est GFR ( Amer) > 60 Est GFR (Non-Af Amer) > 60 Random Glucose 91 (75-110) mg/dL Calcium 8.5 (8.4-10.2) mg/dL Total Bilirubin 0.7 (0.2-1.3) mg/dl AST 48 (17-59) U/L ALT 47 (21-72) U/L Alkaline Phosphatase 155 H (38-126) U/L Total Protein 5.8 L (6.3-8.2) G/DL Albumin 2.7 L (3.5-5.0) g/dL Globulin 3.1 (2.2-3.9) gm/dL Albumin/Globulin Ratio 0.9 L (1.0-2.1) Laboratory Results - last 24 hr 12/31/18 12/31/18 12/31/18 06:00 06:00 06:00 WBC 7.9 RBC 2.95 L Hgb 9.8 L Hct 29.5 L MCV 99.8 H MCH 33.0 H MCHC 33.1 RDW 14.8 H Plt Count 259 MPV 8.0 Neut % (Auto) 78.2 H Lymph % (Auto) 8.7 L [place] % (Auto) 10.8 H Eos % (Auto) 1.4 Baso % (Auto) 0.9 Neut # (Auto) 6.2 Lymph # (Auto) 0.7 L [place] # (Auto) 0.9 H Eos # (Auto) 0.1 Baso # (Auto) 0.1 PT 14.3 H INR 1.3 APTT 36.7 Sodium 140 Potassium 4.3 Chloride 101 Carbon Dioxide 37 H Anion Gap 6 L BUN 36 H Creatinine 0.8 Est GFR ( Amer) > 60 Est GFR (Non-Af Amer) > 60 Random Glucose 91 Calcium 8.5 Total Bilirubin 0.7 AST 48 ALT 47 Alkaline Phosphatase 155 H Total Protein 5.8 L Albumin 2.7 L Globulin 3.1 Albumin/Globulin Ratio 0.9 L Radiology Impressions: Radiology Impressions Chest X-Ray 12/30/18 06:00 IMPRESSION: Persistent airspace disease in the right lower lobe. Stable layering pleural effusions. Endotracheal tube remains high in position and further advancement is recommended. Stable position of nasogastric tube and right PICC line. Fingerstick Blood Sugar Results: 122 <Main Roldan - Last Filed: 12/31/18 17:45> Assessment/Plan - Assessment and Plan (Free Text) Assessment: Attestation: Patient seen and examined at the bedside with Resident Dr. Leon Londono; and I agree with her outline of plans and management documented above as discussed on AM rounds; reflecting my review of all applicable clinical data, and participation in the care of the patient throughout the day in ICU; today, December 31, 2018.
[2018-12-31] MEDS: metroNIDAZOLE 500mg/100ml NS 100 ML IVPB SCH (09:23)
[2018-12-31 09:47] LABS: ANISOCYTOSIS SLIGHT; BASOPHIL 1 % (0-2); EOSINOPHIL 2 % (0-7); LYMPHOCYTE 5 % (20-50); MONOCYTE 7 % (0-10); NEUTROPHIL 85 % (42-75); PLATELET ESTIMATE NORMAL (NORMAL); TOTAL CELLS COUNTED 100
--- NOTE | 2018-12-31 10:42 | CP.PCM.PN ---
Subjective - Date & Time of Evaluation Date of Evaluation: 12/31/18 Time of Evaluation: 12:51 - Subjective Subjective: ID Note- Patient seen and examined today in ICU. pt. is extubated and sitting in the chair and looks much improved. He is awake and alert and states he feels much better. Objective - Vital Signs/Intake and Output Vital Signs (last 24 hours): Temp Pulse Resp BP Pulse Ox 99.1 F 132 H 18 147/84 100 12/31/18 10:00 12/31/18 10:14 12/31/18 10:00 12/31/18 10:14 12/31/18 10:00 Intake and Output: 12/31/18 12/31/18 06:59 18:59 Intake Total 350 260 Output Total 2800 Balance -2450 260 - Medications Medications: Current Medications Acetaminophen (Tylenol 325mg Tab) 650 mg PO Q6 PRN PRN Reason: Pain, Mild (1-3) Last Admin: 12/24/18 20:36 Dose: 650 mg Acetylcysteine (Mucomyst 10% 4ml) 2 ml IH RBID [facility] Last Admin: 12/31/18 07:34 Dose: 2 ml Albuterol/Ipratropium (Duoneb 3 Mg/0.5 Mg (3 Ml) Ud) 3 ml INH RQID [facility] Last Admin: 12/31/18 07:34 Dose: 3 ml Artificial Tears (Artificial Tears) 2 drop OU Q4 PRN PRN Reason: Dry eyes Last Admin: 12/30/18 20:38 Dose: 2 drop Docusate Sodium (Colace) 100 mg PO DAILY [facility] Last Admin: 12/23/18 10:29 Dose: 100 mg Docusate Sodium (Colace Liquid) 100 mg PO BID [facility] Last Admin: 12/31/18 08:38 Dose: 100 mg Enoxaparin Sodium (Lovenox) 110 mg SC Q12 [facility]; Protocol Last Admin: 12/30/18 08:25 Dose: 110 mg Famotidine (Pepcid) 20 mg IVP Q12 [facility] Last Admin: 12/31/18 08:37 Dose: 20 mg Meropenem 1 gm/ Sodium (Chloride) 100 mls @ 100 mls/hr IVPB Q8 [facility]; Protocol Last Admin: 12/31/18 08:17 Dose: 100 mls/hr Vancomycin HCl 1 gm/ Sodium (Chloride) 250 mls @ 166.667 mls/hr IVPB Q12 [facility]; Protocol Last Admin: 12/30/18 20:37 Dose: 166.667 mls/hr Metronidazole (Flagyl 500mg/100ml Ns) 100 mls @ 100 mls/hr IVPB Q12 [facility]; Protocol Last Admin: 12/31/18 09:23 Dose: 100 mls/hr Diltiazem HCl 125 mg/ Sodium (Chloride) 125 mls @ 15 mls/hr IV .Q8H20M [facility]; Protocol Stop: 12/31/18 16:25 Lactic Acid (Lac-Hydrin 12% Lotion (225 G)) 1 applic TOP BID [facility] Last Admin: 12/31/18 08:18 Dose: 1 applic Metoprolol Tartrate (Lopressor) 50 mg PO Q12 [facility] Last Admin: 12/31/18 10:14 Dose: 50 mg Promethazine HCl/Dextromethorphan (Phenergan Dm Syrup) 5 ml PO Q6 PRN PRN Reason: Cough and congestion Last Admin: 12/15/18 22:00 Dose: 5 ml - Labs Labs: - Constitutional Appears: No Acute Distress - Head Exam Head Exam: ATRAUMATIC - Eye Exam Eye Exam: EOMI - Neck Exam Neck Exam: Full ROM - Respiratory Exam Respiratory Exam: NORMAL BREATHING PATTERN Additional comments: better aeration b/l decreased at right base - Cardiovascular Exam Cardiovascular Exam: RRR, +S1, +S2 - GI/Abdominal Exam GI & Abdominal Exam: Soft, Normal Bowel Sounds Additional comments: NT, ND - Extremities Exam Extremities Exam: Normal Inspection - Neurological Exam Neurological Exam: Alert, Awake, Oriented x3 - Additional Findings Additional findings: Laboratory Results - last 72 hr 12/29/18 12/29/18 12/29/18 05:08 05:32 05:32 WBC 7.3 RBC 3.04 L Hgb 9.9 L Hct 30.0 L MCV 98.8 H D MCH 32.5 H MCHC 32.9 L RDW 14.9 H Plt Count 201 MPV Neut % (Auto) Lymph % (Auto) [place] % (Auto) Eos % (Auto) Baso % (Auto) Neut # (Auto) Lymph # (Auto) [place] # (Auto) Eos # (Auto) Baso # (Auto) Neutrophils % (Manual) Lymphocytes % (Manual) Monocytes % (Manual) Eosinophils % (Manual) Basophils % (Manual) Platelet Estimate Anisocytosis (manual) PT INR APTT pCO2 48 H pO2 118 H HCO3 32.7 H ABG pH 7.47 H ABG Total CO2 36.4 H ABG O2 Saturation 99.8 H ABG O2 Content 14.0 L ABG Base Excess 10.0 H ABG Hemoglobin 10.1 L ABG Carboxyhemoglobin 1.6 H POC ABG HHb (Measured) 0.2 ABG Methemoglobin 1.2 ABG O2 Capacity 14.0 L [place] Test Yes A-a O2 Difference 179.0 Hgb O2 Saturation 97.1 Vent Mode A/c Mechanical Rate 12 FiO2 50.0 Tidal Volume 500 PEEP 5 Sodium 142 Potassium 4.1 Chloride 107 Carbon Dioxide 34 H Anion Gap 5 L BUN 44 H Creatinine 0.8 Est GFR ( Amer) > 60 Est GFR (Non-Af Amer) > 60 Random Glucose 125 H Calcium 8.0 L Total Bilirubin AST ALT Alkaline Phosphatase Total Protein Albumin Globulin Albumin/Globulin Ratio Vancomycin Trough Random Vancomycin 12/29/18 12/30/18 12/30/18 05:32 04:53 04:55 WBC RBC Hgb Hct MCV MCH MCHC RDW Plt Count MPV Neut % (Auto) Lymph % (Auto) [place] % (Auto) Eos % (Auto) Baso % (Auto) Neut # (Auto) Lymph # (Auto) [place] # (Auto) Eos # (Auto) Baso # (Auto) Neutrophils % (Manual) Lymphocytes % (Manual) Monocytes % (Manual) Eosinophils % (Manual) Basophils % (Manual) Platelet Estimate Anisocytosis (manual) PT INR APTT pCO2 53 H pO2 156 H HCO3 33.7 H ABG pH 7.45 ABG Total CO2 38.4 H ABG O2 Saturation 99.6 H ABG O2 Content 14.7 L ABG Base Excess 11.2 H ABG Hemoglobin 10.6 L ABG Carboxyhemoglobin 1.4 POC ABG HHb (Measured) 0.4 ABG Methemoglobin 1.5 ABG O2 Capacity 14.8 L [place] Test Yes A-a O2 Difference 134.0 Hgb O2 Saturation 96.7 Vent Mode A/c Mechanical Rate 12 FiO2 50.0 Tidal Volume 500 PEEP 5 Sodium Potassium Chloride Carbon Dioxide Anion Gap BUN Creatinine Est GFR ( Amer) Est GFR (Non-Af Amer) Random Glucose Calcium Total Bilirubin AST ALT Alkaline Phosphatase Total Protein Albumin Globulin Albumin/Globulin Ratio Vancomycin Trough 12.8 H Random Vancomycin 16.8 12/30/18 12/30/18 12/31/18 04:55 04:55 06:00 WBC 6.1 RBC 2.87 L Hgb 9.4 L Hct 28.7 L MCV 99.8 H MCH 32.8 H MCHC 32.8 L RDW 14.9 H Plt Count 197 MPV 8.2 Neut % (Auto) 72.8 Lymph % (Auto) 10.9 L [place] % (Auto) 10.9 H Eos % (Auto) 4.5 H Baso % (Auto) 0.9 Neut # (Auto) 4.5 Lymph # (Auto) 0.7 L [place] # (Auto) 0.7 Eos # (Auto) 0.3 Baso # (Auto) 0.1 Neutrophils % (Manual) Lymphocytes % (Manual) Monocytes % (Manual) Eosinophils % (Manual) Basophils % (Manual) Platelet Estimate Anisocytosis (manual) PT 14.3 H INR 1.3 APTT 36.7 pCO2 pO2 HCO3 ABG pH ABG Total CO2 ABG O2 Saturation ABG O2 Content ABG Base Excess ABG Hemoglobin ABG Carboxyhemoglobin POC ABG HHb (Measured) ABG Methemoglobin ABG O2 Capacity [place] Test A-a O2 Difference Hgb O2 Saturation Vent Mode Mechanical Rate FiO2 Tidal Volume PEEP Sodium 140 Potassium 4.2 Chloride 102 Carbon Dioxide 38 H Anion Gap 4 L BUN 41 H Creatinine 0.8 Est GFR ( Amer) > 60 Est GFR (Non-Af Amer) > 60 Random Glucose 109 Calcium 8.2 L Total Bilirubin 0.4 AST 41 ALT 48 Alkaline Phosphatase 175 H Total Protein 5.1 L Albumin 2.4 L Globulin 2.8 Albumin/Globulin Ratio 0.9 L Vancomycin Trough Random Vancomycin 12/31/18 12/31/18 06:00 06:00 WBC 7.9 RBC 2.95 L Hgb 9.8 L Hct 29.5 L MCV 99.8 H MCH 33.0 H MCHC 33.1 RDW 14.8 H Plt Count 259 MPV 8.0 Neut % (Auto) 78.2 H Lymph % (Auto) 8.7 L [place] % (Auto) 10.8 H Eos % (Auto) 1.4 Baso % (Auto) 0.9 Neut # (Auto) 6.2 Lymph # (Auto) 0.7 L [place] # (Auto) 0.9 H Eos # (Auto) 0.1 Baso # (Auto) 0.1 Neutrophils % (Manual) 85 H Lymphocytes % (Manual) 5 L Monocytes % (Manual) 7 Eosinophils % (Manual) 2 Basophils % (Manual) 1 Platelet Estimate Normal Anisocytosis (manual) Slight PT INR APTT pCO2 pO2 HCO3 ABG pH ABG Total CO2 ABG O2 Saturation ABG O2 Content ABG Base Excess ABG Hemoglobin ABG Carboxyhemoglobin POC ABG HHb (Measured) ABG Methemoglobin ABG O2 Capacity [place] Test A-a O2 Difference Hgb O2 Saturation Vent Mode Mechanical Rate FiO2 Tidal Volume PEEP Sodium 140 Potassium 4.3 Chloride 101 Carbon Dioxide 37 H Anion Gap 6 L BUN 36 H Creatinine 0.8 Est GFR ( Amer) > 60 Est GFR (Non-Af Amer) > 60 Random Glucose 91 Calcium 8.5 Total Bilirubin 0.7 AST 48 ALT 47 Alkaline Phosphatase 155 H Total Protein 5.8 L Albumin 2.7 L Globulin 3.1 Albumin/Globulin Ratio 0.9 L Vancomycin Trough Random Vancomycin Microbiology 12/26/18 09:00 Trachasp Gram Stain - Final 12/26/18 09:00 Trachasp Sputum Culture - Final No growth. 12/22/18 16:49 Blood-Venous Blood Culture - Final NO GROWTH AFTER 5 DAYS 12/22/18 16:49 Blood-Venous Gram Stain - Final TEST NOT PERFORMED 12/21/18 17:25 Blood-Venous Blood Culture - Final NO GROWTH AFTER 5 DAYS 12/21/18 17:25 Blood-Venous Gram Stain - Final TEST NOT PERFORMED 12/21/18 17:20 Blood-Venous Blood Culture - Final NO GROWTH AFTER 5 DAYS 12/21/18 17:20 Blood-Venous Gram Stain - Final TEST NOT PERFORMED 12/23/18 17:10 Trachasp Gram Stain - Final 12/23/18 17:10 Trachasp Sputum Culture - Final No growth. 12/22/18 07:32 Urine,Clean Catch Urine Culture - Final No Growth (<1,000 CFU/ML) 12/23/18 15:30 Nose MRSA Culture (Admit) - Final MRSA NOT DETECTED Accession No. : [id number] Patient Name / ID : ASHISH Gutierrez / [id number] Exam Date : 12/31/2018 03:58:42 ( Approved ) Study Comment : Sex / Age : M / [id number] Creator : Idris Wilson MD Dictator : Idris Wilson MD Forest Ranger : Motor Patrol Operator : Idris Wilson MD Approver2 : Report Date : 12/31/2018 12:04:37 My Comment : Date of service: 12/31/2018 HISTORY: Follow-up CHF, PNA COMPARISON: Comparison chest 12/30/2018. comparison also made with prior CT scan of the chest dated 12/22 18 TECHNIQUE: 1 view obtained. FINDINGS: Interval removal ETT. No change right sided PICC line with tip in the SVC. LUNGS: Large left-sided effusion and left lower lobe atelectasis. Patchy infiltrate changes seen throughout the right lung.. Suspect tiny right effusion PLEURA: As above. No pneumothorax apparent. CARDIOVASCULAR: Heart remains enlarged. Mild aortic atherosclerotic calcification present. OSSEOUS STRUCTURES: No significant abnormalities. VISUALIZED UPPER ABDOMEN: Normal. OTHER FINDINGS: None. IMPRESSION: Large left-sided effusion and left lower lobe atelectasis. Patchy infiltrate changes seen throughout the right lung. Suspect tiny right Assessment and Plan (1) Atrial fibrillation with RVR Status: Acute (2) Altered mental status Status: Acute (3) Pneumonia Status: Acute (4) Multifocal pneumonia Status: Acute - Assessment and Plan (Free Text) Assessment: A/P- 73 year old male with a.fib and now found to have altered mental status and Right sided pneumonia , developed hypercapneic resp failure yesterday afternoon , s/p intubation and transferred to ICU. extubated clinically much improved afebrile normal wbc count Blood cx- neg x 3 trach asp cx- Negative x 2 hepatitis panel- neg urine legionella AG- neg mycoplasma IGM- negative PLan- continue with IV meropnem day #9 advise 5 more days of meropnem. d/c vanco. d/c metronidazole. all labs and imaging and chart notes reviewed. Critical care time spent 40 minutes.
[2018-12-31] MEDS ORDERED: metOLazone 5 MG TAB PO SCH (11:00)
--- NOTE | 2018-12-31 12:10 | RAD ---
Date of service: 12/31/2018 HISTORY: Follow-up CHF, PNA COMPARISON: Comparison chest 12/30/2018. comparison also made with prior CT scan of the chest dated 12/22 18 TECHNIQUE: 1 view obtained. FINDINGS: Interval removal ETT. No change right sided PICC line with tip in the SVC. LUNGS: Large left-sided effusion and left lower lobe atelectasis. Patchy infiltrate changes seen throughout the right lung.. Suspect tiny right effusion PLEURA: As above. No pneumothorax apparent. CARDIOVASCULAR: Heart remains enlarged. Mild aortic atherosclerotic calcification present. OSSEOUS STRUCTURES: No significant abnormalities. VISUALIZED UPPER ABDOMEN: Normal. OTHER FINDINGS: None. IMPRESSION: Large left-sided effusion and left lower lobe atelectasis. Patchy infiltrate changes seen throughout the right lung. Suspect tiny right
[2018-12-31] MEDS ORDERED: Lidocaine 1% Inj (20ml) ONE (14:30)
--- NOTE | 2018-12-31 15:54 | CP.PCM.PN ---
Subjective - Date & Time of Evaluation Date of Evaluation: 12/31/18 Time of Evaluation: 14:00 - Subjective Subjective: F/U respiratory Failure extubated, awake, no AD, in the begining of having L Thoracentesis Objective - Vital Signs/Intake and Output Vital Signs (last 24 hours): Temp Pulse Resp BP Pulse Ox 99.4 F 97 H 18 116/65 93 L 12/31/18 15:00 12/31/18 15:10 12/31/18 15:00 12/31/18 15:00 12/31/18 15:10 Intake and Output: 12/31/18 12/31/18 06:59 18:59 Intake Total 350 635 Output Total 2800 Balance -2450 635 - Medications Medications: Current Medications Acetaminophen (Tylenol 325mg Tab) 650 mg PO Q6 PRN PRN Reason: Pain, Mild (1-3) Last Admin: 12/24/18 20:36 Dose: 650 mg Acetylcysteine (Mucomyst 10% 4ml) 2 ml IH RBID [facility] Last Admin: 12/31/18 07:34 Dose: 2 ml Albuterol/Ipratropium (Duoneb 3 Mg/0.5 Mg (3 Ml) Ud) 3 ml INH RQID [facility] Last Admin: 12/31/18 15:28 Dose: 3 ml Artificial Tears (Artificial Tears) 2 drop OU Q4 PRN PRN Reason: Dry eyes Last Admin: 12/30/18 20:38 Dose: 2 drop Docusate Sodium (Colace Liquid) 100 mg PO BID [facility] Last Admin: 12/31/18 08:38 Dose: 100 mg Enoxaparin Sodium (Lovenox) 110 mg SC Q12 [facility]; Protocol Last Admin: 12/30/18 08:25 Dose: 110 mg Famotidine (Pepcid) 20 mg IVP Q12 [facility] Last Admin: 12/31/18 08:37 Dose: 20 mg Meropenem 1 gm/ Sodium (Chloride) 100 mls @ 100 mls/hr IVPB Q8 [facility]; Protocol Last Admin: 12/31/18 08:17 Dose: 100 mls/hr Diltiazem HCl 125 mg/ Sodium (Chloride) 125 mls @ 15 mls/hr IV .Q8H20M ONE; Protocol Stop: 12/31/18 16:25 Last Admin: 12/31/18 13:10 Dose: 15 mg/hr, 15 mls/hr Lactic Acid (Lac-Hydrin 12% Lotion (225 G)) 1 applic TOP BID [facility] Last Admin: 12/31/18 08:18 Dose: 1 applic Metolazone (Zaroxolyn) 5 mg PO DAILY [facility] Metoprolol Tartrate (Lopressor) 50 mg PO Q12 [facility] Last Admin: 12/31/18 10:14 Dose: 50 mg Promethazine HCl/Dextromethorphan (Phenergan Dm Syrup) 5 ml PO Q6 PRN PRN Reason: Cough and congestion Last Admin: 12/15/18 22:00 Dose: 5 ml - Labs Labs: 12/31/18 06:00 12/31/18 06:00 PT 14.3 Seconds (9.8-13.1) H 12/31/18 06:00 INR 1.3 12/31/18 06:00 APTT 36.7 Seconds (25.6-37.1) 12/31/18 06:00 - Constitutional Appears: No Acute Distress - Head Exam Head Exam: NORMAL INSPECTION - Eye Exam Eye Exam: PERRL - ENT Exam ENT Exam: Normal Exam - Neck Exam Neck Exam: Normal Inspection - Respiratory Exam Respiratory Exam: Decreased Breath Sounds (At bases L>R) - Cardiovascular Exam Cardiovascular Exam: Tachycardia, Irregular Rhythm, Murmur (systolic) - GI/Abdominal Exam GI & Abdominal Exam: Soft, Normal Bowel Sounds - Extremities Exam Additional comments: Edema all extremities - Back Exam Back Exam: NORMAL INSPECTION - Neurological Exam Neurological Exam: Alert, Awake Additional comments: Follows simple commands - Skin Skin Exam: Warm Assessment and Plan (1) Aspiration pneumonia of right lung Status: Acute (2) Multifocal pneumonia Status: Acute (3) Pleural effusion, bilateral Status: Acute (4) Respiratory failure Status: Resolved (5) COPD (chronic obstructive pulmonary disease) Status: Chronic (6) Atrial fibrillation with RVR Status: Acute - Assessment and Plan (Free Text) Plan: f/u CXR post Thoracenesis, continue O2 NC, DuoNeb, Merren, and rest of Tx, Trachast C-S negative, f/u Pleural fluid C-S and Chemistry Critical care time: 32 min.
--- NOTE | 2018-12-31 15:59 | PCM.PROC ---
<Cate Londono - Last Filed: 12/31/18 15:57> Procedure: Fluid Aspiration - Time Performed Time Performed: 15:00 - Time Out Time Out: Side verified, Site verified, Patient ID confirmed, Sterile procedures obs. - Procedure Procedure: Thoracentesis - Consent Obtained Consent obtained: Written - Performed By Performed by: Attending Physician - Indications Indication(s): Therapeutic, Diagnostic - Contraindications Contraindications: None - Location Location: Left, Lateral, Thorax - Anesthetic Technique Anesthetic Technique: Local Anesthetic: Lidocaine 1% Procedure: Usual prep and drape, Ultrasnd. guidance util. - Appearance Appearance: Serosanguinous - Post-procedure Post-procedure: Dressed - Complications Complications: None - Patient tolerated procedure Patient tolerated procedure: Well <Main Roldan - Last Filed: 12/31/18 17:03> Procedure: Fluid Aspiration - Drained Drained ml: 1350 - Complications Complications: None Attending/Attestation - Attestation I have personally seen and examined this patient.: Yes I have fully participated in the care of the patient.: Yes I have reviewed all pertinent clinical information, including history, physical exam and plan: Yes Notes (Text): Bedside Thoracentesis: Informed consent given by patient and signed by patient. Procedure performed by Resident Dr. Leon Londono at the bedside using Ultrasound guidance. After time out, patient prepped and draped in sterile fashion; 1% Lidocaine used to provide local anesthesia over the superior aspect of left 8th rib in the left mid- axillary line. 20Gauge guide needle used to enter the pleural space at this location and approx. 10 ml of clear serosanguinous fluid aspirated and sent for analysis. A Ritz-[id number]-Lrddcycp needle was then introduced through the skin incision into the pleural space, then the thoracentesis catheter was threaded without difficulty. 1350ml of serosang colored fluid was removed without difficulty. The catheter was then removed, and no immediate complications were noted during the procedure. A post-procedure chest x-rayshows no pneumothorax and improved aeration of LLL; and very minimal blunting of the left costophrenic angle.
[2018-12-31 16:07] LABS: BODY FLUID TYPE PLEURAL/THORACENTESI
[2018-12-31 16:24] LABS: AMYLASE,BODY FLUID < 30 mg/dL (NONE ESTABLISHED); GLUCOSE,BODY FLUID 104 mg/dL (NONE ESTABLISHED)
--- NOTE | 2018-12-31 17:15 | RAD ---
Date of service: 12/31/2018 HISTORY: s/p thoracentesis COMPARISON: 12/31/2018. FINDINGS: Right PICC line terminates at the cavoatrial junction. LUNGS: The lungs are well inflated. There is persistent airspace disease in the right lower lobe. The left lung is clear. PLEURA: Stable small right pleural effusion. Interval decrease in size of left pleural effusion post thoracentesis with residual small effusion. No pneumothorax. CARDIOVASCULAR: Persistent moderate cardiomegaly. There are aortic atherosclerotic calcifications present. OSSEOUS STRUCTURES: Within normal limits for the patient's age. VISUALIZED UPPER ABDOMEN: Normal. OTHER FINDINGS: None. IMPRESSION: 1. Status post left thoracentesis, residual small left pleural effusion. No pneumothorax. 2. No significant interval change in right lower lobe airspace disease and small right pleural effusion.
[2018-12-31 17:33] LABS: BF GROSS APPEARANCE BLOODY (CLEAR)
[2018-12-31 17:36] LABS: BODY FLUID MONO/MACROPHAGE 43 % (0-0); BODY FLUID TOTAL COUNT 100 (0-0)
[2018-12-31] MEDS: Artificial Tears Opht Soln OU PRN (21:23)
[2019-01-01] MEDS: Meropenem 1 GM in Sodium Chloride 0.9% 100 ML IVPB SCH ×3 (00:36→17:14)
[2019-01-01 02:01] LABS: ABG ALLEN TEST YES; ARTERIAL BLOOD GAS HCO3 34.7 mmol/L (21-28); ARTERIAL BLOOD GAS PCO2 43 mm/Hg (35-45); ARTERIAL BLOOD GAS PH 7.54 (7.35-7.45); ARTERIAL BLOOD GAS PO2 51 mm/Hg (80-100); ARTERIAL BLOOD GAS TCO2 38.1 mmol/L (22-28)
[2019-01-01 04:37] LABS: ABG ALLEN TEST YES; ARTERIAL BLOOD GAS HCO3 34.3 mmol/L (21-28); ARTERIAL BLOOD GAS O2 SAT 98.3 % (95-98); ARTERIAL BLOOD GAS PCO2 46 mm/Hg (35-45); ARTERIAL BLOOD GAS PH 7.51 (7.35-7.45); ARTERIAL BLOOD GAS PO2 74 mm/Hg (80-100); ARTERIAL BLOOD GAS TCO2 38.1 mmol/L (22-28)
[2019-01-01 06:09] LABS: BASO % 0.5 % (0.0-2.0); EOS # 0.2 K/uL (0.0-0.7); HEMOGLOBIN 9.3 g/dL (12.0-18.0); LYMPH # 0.8 K/uL (1.0-4.3); LYMPH % 11.1 % (20.0-40.0); MEAN CELL VOLUME 103.1 fl (80.0-94.0); MEAN CORPUSCULAR HEMOGLOBIN 34.4 pg (27.0-31.0); MEAN CORPUSCULAR HGB CONC 33.3 g/dL (33.0-37.0); MEAN PLATELET VOLUME 8.2 fl (7.2-11.7); MONO # 0.8 K/uL (0.0-0.8); MONO % 10.1 % (0.0-10.0); NEUT # 5.8 K/uL (1.8-7.0); NEUT % 76.3 % (50.0-75.0); NRBC % 0.1 % (0.0-0.0); RBC 2.7 Mil/uL (4.40-5.90); RED CELL DISTRIBUTION WIDTH 14.4 % (11.5-14.5); WHITE BLOOD COUNT 7.6 K/uL (4.8-10.8)
[2019-01-01 06:32] LABS: ALB/GLOB RATIO 0.9 (1.0-2.1); ALBUMIN 2.7 g/dL (3.5-5.0); ALT/SGPT 43 U/L (21-72); AST/SGOT 43 U/L (17-59); BLOOD UREA NITROGEN 35 mg/dl (9-20); CALCIUM 8.6 mg/dL (8.4-10.2); GFR NON-AFRICAN AMERICAN > 60
[2019-01-01] MEDS: Acetylcysteine 10% 4 ML IH SCH (07:20)
[2019-01-01] MEDS: Albuterol-Ipratrop 3 mg / 0.5 (3 ml) UD INH SCH ×4 (07:20→19:34)
[2019-01-01] MEDS: Enoxaparin 120 mg Syringe SC SCH ×2 (09:33→21:10)
--- NOTE | 2019-01-01 10:19 | CP.PCM.PN ---
Subjective - Date & Time of Evaluation Date of Evaluation: 01/01/19 Time of Evaluation: 10:12 - Subjective Subjective: Patient sleeping comfortably, no acute events overnight, IV cardizem infusing Objective - Vital Signs/Intake and Output Vital Signs (last 24 hours): Temp Pulse Resp BP Pulse Ox 98.4 F 105 H 13 120/73 98 01/01/19 08:00 01/01/19 09:44 01/01/19 08:00 01/01/19 09:44 01/01/19 08:00 Intake and Output: 01/01/19 01/01/19 06:59 18:59 Intake Total 165 Output Total 1700 Balance -1535 - Medications Medications: Current Medications Acetaminophen (Tylenol 325mg Tab) 650 mg PO Q6 PRN PRN Reason: Pain, Mild (1-3) Last Admin: 12/24/18 20:36 Dose: 650 mg Acetaminophen (Tylenol 325mg Tab) 650 mg PO Q4 PRN PRN Reason: Fever >100.4 F Last Admin: 12/31/18 21:23 Dose: 650 mg Albuterol/Ipratropium (Duoneb 3 Mg/0.5 Mg (3 Ml) Ud) 3 ml INH RQID [facility] Last Admin: 01/01/19 07:20 Dose: 3 ml Artificial Tears (Artificial Tears) 2 drop OU Q4 PRN PRN Reason: Dry eyes Last Admin: 12/31/18 21:23 Dose: 2 drop Atorvastatin Calcium (Lipitor) 20 mg PO DAILY [facility] Last Admin: 01/01/19 09:33 Dose: 20 mg Diltiazem HCl (Cardizem) 60 mg PO Q6 [facility] Last Admin: 01/01/19 09:44 Dose: 60 mg Docusate Sodium (Colace Liquid) 100 mg PO BID [facility] Last Admin: 01/01/19 09:32 Dose: 100 mg Enoxaparin Sodium (Lovenox) 110 mg SC Q12 [facility]; Protocol Last Admin: 01/01/19 09:33 Dose: 110 mg Furosemide (Lasix) 40 mg IV DAILY [facility] Last Admin: 01/01/19 09:43 Dose: 40 mg Meropenem 1 gm/ Sodium (Chloride) 100 mls @ 100 mls/hr IVPB Q8 [facility]; Protocol Last Admin: 01/01/19 09:34 Dose: 100 mls/hr Diltiazem HCl 125 mg/ Sodium (Chloride) 125 mls @ 15 mls/hr IV .Q8H20M ONE Stop: 01/01/19 14:55 Last Admin: 01/01/19 07:00 Dose: 15 mls/hr Ipratropium [place] (Atrovent) 0.5 mg IH RQ6 [facility] Lactic Acid (Lac-Hydrin 12% Lotion (225 G)) 1 applic TOP BID [facility] Last Admin: 01/01/19 09:32 Dose: 1 applic Lisinopril (Zestril) 2.5 mg PO DAILY [facility] Pantoprazole Sodium (Protonix Inj) 40 mg IVP Q12H [facility] Last Admin: 01/01/19 09:30 Dose: 40 mg - Labs Labs: 01/01/19 05:00 01/01/19 05:00 PT 14.3 Seconds (9.8-13.1) H 12/31/18 06:00 INR 1.3 12/31/18 06:00 APTT 36.7 Seconds (25.6-37.1) 12/31/18 06:00 - Head Exam Head Exam: ATRAUMATIC, NORMAL INSPECTION - Eye Exam Eye Exam: EOMI - Neck Exam Neck Exam: Full ROM - Respiratory Exam Respiratory Exam: Rales, Rhonchi, NORMAL BREATHING PATTERN. absent: Wheezes - Cardiovascular Exam Cardiovascular Exam: Irregular Rhythm, +S1, +S2 - GI/Abdominal Exam GI & Abdominal Exam: Soft, Normal Bowel Sounds. absent: Tenderness, Hypoactive Bowel Sounds, Rebound - Extremities Exam Extremities Exam: Pedal Edema - Neurological Exam Neurological Exam: Alert, Awake, Oriented x3. absent: Altered - Skin Skin Exam: Normal Color, Warm Assessment and Plan - Assessment and Plan (Free Text) Assessment: A-fib: rate controlled with IV cardizem, switch to oral cardizem (at risk of Wheezing/hold beta jami), currently on lovenox, consider switch to oral eliquis (non-valvular), continue as per cardiolog -Moderate Chronic systolic heart failure: EF 35%, continue av greyson jami, continue negative balance, add acei, ad statin, patient will benefit from PT/OT/activity oob to chair daily -continue oral diet -LE edema: avoid excess free water -dvt rx: lovenox -PUD ppx protonix -Patient to be started on oral cardizem and titrate off IV cardizem -Patient remains hemodynamically stable -d/w nursing -patient will benefit off rowell, d/w nursing (patient refused removal of rowell as scrotum enlarged 2nd fluid cc time 32 minutes
[2019-01-01] MEDS: Ipratropium 0.02% Inhal Soln (0.5 mg/2.5 ml) UD IH SCH ×2 (13:20→19:34)
--- NOTE | 2019-01-01 16:26 | CP.PCM.PN ---
Subjective - Date & Time of Evaluation Date of Evaluation: 01/01/19 Time of Evaluation: 12:20 - Subjective Subjective: F/U Pulmonary consult Pt awake, no A/D, no SOB, feels better after L thoracentesis yesterday. Objective - Vital Signs/Intake and Output Vital Signs (last 24 hours): Temp Pulse Resp BP Pulse Ox 99.3 F 115 H 14 106/68 99 01/01/19 16:00 01/01/19 16:00 01/01/19 16:00 01/01/19 16:00 01/01/19 16:00 Intake and Output: 01/01/19 01/01/19 06:59 18:59 Intake Total 165 270 Output Total 1700 2009 Balance -1531 -1749 - Medications Medications: Current Medications Acetaminophen (Tylenol 325mg Tab) 650 mg PO Q6 PRN PRN Reason: Pain, Mild (1-3) Last Admin: 12/24/18 20:36 Dose: 650 mg Acetaminophen (Tylenol 325mg Tab) 650 mg PO Q4 PRN PRN Reason: Fever >100.4 F Last Admin: 12/31/18 21:23 Dose: 650 mg Albuterol/Ipratropium (Duoneb 3 Mg/0.5 Mg (3 Ml) Ud) 3 ml INH RQID [facility] Last Admin: 01/01/19 15:07 Dose: 3 ml Artificial Tears (Artificial Tears) 2 drop OU Q4 PRN PRN Reason: Dry eyes Last Admin: 12/31/18 21:23 Dose: 2 drop Atorvastatin Calcium (Lipitor) 20 mg PO DAILY [facility] Last Admin: 01/01/19 09:33 Dose: 20 mg Diltiazem HCl (Cardizem) 60 mg PO Q6 [facility] Last Admin: 01/01/19 09:44 Dose: 60 mg Docusate Sodium (Colace Liquid) 100 mg PO BID [facility] Last Admin: 01/01/19 09:32 Dose: 100 mg Enoxaparin Sodium (Lovenox) 110 mg SC Q12 [facility]; Protocol Last Admin: 01/01/19 09:33 Dose: 110 mg Furosemide (Lasix) 40 mg IV DAILY [facility] Last Admin: 01/01/19 09:43 Dose: 40 mg Meropenem 1 gm/ Sodium (Chloride) 100 mls @ 100 mls/hr IVPB Q8 [facility]; Protocol Last Admin: 01/01/19 09:34 Dose: 100 mls/hr Ipratropium [place] (Atrovent) 0.5 mg IH RQ6 [facility] Last Admin: 01/01/19 13:20 Dose: 0.5 mg Lactic Acid (Lac-Hydrin 12% Lotion (225 G)) 1 applic TOP BID [facility] Last Admin: 01/01/19 09:32 Dose: 1 applic Lisinopril (Zestril) 2.5 mg PO DAILY [facility] Pantoprazole Sodium (Protonix Inj) 40 mg IVP Q12H [facility] Last Admin: 01/01/19 09:30 Dose: 40 mg Promethazine HCl/Dextromethorphan (Phenergan Dm Syrup) 10 ml PO Q4 [facility] - Labs Labs: 01/01/19 05:00 01/01/19 05:00 PT 14.3 Seconds (9.8-13.1) H 12/31/18 06:00 INR 1.3 12/31/18 06:00 APTT 36.7 Seconds (25.6-37.1) 12/31/18 06:00 - Constitutional Appears: Chronically Ill - Head Exam Head Exam: NORMAL INSPECTION - Eye Exam Eye Exam: PERRL - ENT Exam ENT Exam: Normal Exam - Neck Exam Neck Exam: Normal Inspection - Respiratory Exam Respiratory Exam: Decreased Breath Sounds (at bases), Rhonchi - Cardiovascular Exam Cardiovascular Exam: Irregular Rhythm - GI/Abdominal Exam GI & Abdominal Exam: Soft, Normal Bowel Sounds - Extremities Exam Additional comments: Edema - Back Exam Back Exam: NORMAL INSPECTION - Neurological Exam Neurological Exam: Alert, CN II-XII Intact Additional comments: No focal motor/sensory deficit, generalized weakness. - Psychiatric Exam Psychiatric exam: Anxious - Skin Skin Exam: Warm Assessment and Plan (1) Aspiration pneumonia of right lung Status: Acute (2) Multifocal pneumonia Status: Acute (3) Pleural effusion, bilateral Status: Acute (4) Respiratory failure Status: Resolved (5) COPD (chronic obstructive pulmonary disease) Status: Chronic (6) Atrial fibrillation with RVR Status: Acute (7) S/P thoracentesis Assessment & Plan: Left Status: Acute - Assessment and Plan (Free Text) Plan: Continue Merren, Duoneb, Promethazine DM prn and rest of Tx. Critical care time: 31 min.
[2019-01-01] MEDS: Promethazine DM 12.5 mg-30 mg/10 ml Syrup PO SCH ×2 (17:14→21:11)
[2019-01-02] MEDS: Meropenem 1 GM in Sodium Chloride 0.9% 100 ML IVPB SCH ×3 (00:25→16:37)
[2019-01-02] MEDS: Ipratropium 0.02% Inhal Soln (0.5 mg/2.5 ml) UD IH SCH ×4 (01:09→18:59)
[2019-01-02] MEDS: Promethazine DM 12.5 mg-30 mg/10 ml Syrup PO SCH ×6 (01:12→22:03)
[2019-01-02 06:35] LABS: BASO % 0.9 % (0.0-2.0); EOS # 0.2 K/uL (0.0-0.7); EOS % 3.9 % (0.0-4.0); HEMOGLOBIN 11.4 g/dL (12.0-18.0); LYMPH # 0.7 K/uL (1.0-4.3); LYMPH % 13.9 % (20.0-40.0); MEAN CORPUSCULAR HEMOGLOBIN 36.7 pg (27.0-31.0); MEAN CORPUSCULAR HGB CONC 34.7 g/dL (33.0-37.0); MEAN PLATELET VOLUME 8.2 fl (7.2-11.7); MONO # 0.5 K/uL (0.0-0.8); MONO % 9.5 % (0.0-10.0); NEUT # 3.8 K/uL (1.8-7.0); NEUT % 71.8 % (50.0-75.0); NRBC % 0.1 % (0.0-0.0); RBC 3.09 Mil/uL (4.40-5.90); RED CELL DISTRIBUTION WIDTH 14.6 % (11.5-14.5); WHITE BLOOD COUNT 5.2 K/uL (4.8-10.8)
[2019-01-02 06:46] LABS: MEAN CELL VOLUME 105.9 fl (80.0-94.0)
[2019-01-02 06:49] LABS: ALB/GLOB RATIO 0.9 (1.0-2.1); ALBUMIN 2.6 g/dL (3.5-5.0); ALT/SGPT 42 U/L (21-72); AST/SGOT 43 U/L (17-59); BLOOD UREA NITROGEN 27 mg/dl (9-20); CALCIUM 8.6 mg/dL (8.4-10.2); GFR NON-AFRICAN AMERICAN > 60
[2019-01-02] MEDS: Albuterol-Ipratrop 3 mg / 0.5 (3 ml) UD INH SCH ×4 (07:15→19:09)
--- NOTE | 2019-01-02 07:46 | CP.PCM.PN ---
Subjective - Date & Time of Evaluation Date of Evaluation: 01/02/19 Time of Evaluation: 07:44 - Subjective Subjective: PAtient sleeping comfortably. off cardiem ggt Objective - Vital Signs/Intake and Output Vital Signs (last 24 hours): Temp Pulse Resp BP Pulse Ox 98.5 F 100 H 11 L 131/80 99 01/02/19 07:21 01/02/19 07:21 01/02/19 07:21 01/02/19 07:21 01/02/19 07:21 Intake and Output: 01/02/19 01/02/19 06:59 18:59 Intake Total 280 Output Total 1230 Balance -950 - Medications Medications: Current Medications Acetaminophen (Tylenol 325mg Tab) 650 mg PO Q6 PRN PRN Reason: Pain, Mild (1-3) Last Admin: 12/24/18 20:36 Dose: 650 mg Acetaminophen (Tylenol 325mg Tab) 650 mg PO Q4 PRN PRN Reason: Fever >100.4 F Last Admin: 12/31/18 21:23 Dose: 650 mg Albuterol/Ipratropium (Duoneb 3 Mg/0.5 Mg (3 Ml) Ud) 3 ml INH RQID [facility] Last Admin: 01/02/19 07:15 Dose: 3 ml Artificial Tears (Artificial Tears) 2 drop OU Q4 PRN PRN Reason: Dry eyes Last Admin: 12/31/18 21:23 Dose: 2 drop Atorvastatin Calcium (Lipitor) 20 mg PO DAILY [facility] Last Admin: 01/01/19 09:33 Dose: 20 mg Diltiazem HCl (Cardizem) 90 mg PO Q6 [facility] Docusate Sodium (Colace Liquid) 100 mg PO BID [facility] Last Admin: 01/01/19 17:13 Dose: 100 mg Enoxaparin Sodium (Lovenox) 110 mg SC Q12 [facility]; Protocol Last Admin: 01/01/19 21:10 Dose: 110 mg Furosemide (Lasix) 40 mg IV DAILY [facility] Last Admin: 01/01/19 09:43 Dose: 40 mg Meropenem 1 gm/ Sodium (Chloride) 100 mls @ 100 mls/hr IVPB Q8 [facility]; Protocol Last Admin: 01/02/19 00:25 Dose: 100 mls/hr Ipratropium [place] (Atrovent) 0.5 mg IH RQ6 [facility] Last Admin: 01/02/19 07:15 Dose: Not Given Lactic Acid (Lac-Hydrin 12% Lotion (225 G)) 1 applic TOP BID [facility] Last Admin: 01/01/19 09:32 Dose: 1 applic Lisinopril (Zestril) 2.5 mg PO DAILY [facility] Pantoprazole Sodium (Protonix Inj) 40 mg IVP Q12H [facility] Last Admin: 01/01/19 21:37 Dose: 40 mg Promethazine HCl/Dextromethorphan (Phenergan Dm Syrup) 10 ml PO Q4 [facility] Last Admin: 01/02/19 07:32 Dose: Not Given - Labs Labs: 01/02/19 04:30 01/02/19 04:30 PT 14.3 Seconds (9.8-13.1) H 12/31/18 06:00 INR 1.3 12/31/18 06:00 APTT 36.7 Seconds (25.6-37.1) 12/31/18 06:00 - Constitutional Appears: Well, Non-toxic, No Acute Distress - Head Exam Head Exam: ATRAUMATIC - Eye Exam Eye Exam: EOMI - ENT Exam ENT Exam: Mucous Membranes Moist - Respiratory Exam Respiratory Exam: Clear to Ausculation Bilateral, NORMAL BREATHING PATTERN. absent: Decreased Breath Sounds, Rhonchi, Wheezes, Respiratory Distress - Cardiovascular Exam Cardiovascular Exam: Irregular Rhythm, +S1, +S2 - GI/Abdominal Exam GI & Abdominal Exam: Soft. absent: Tenderness, Diminished Bowel Sounds, Hernia - Extremities Exam Extremities Exam: Pedal Edema - Neurological Exam Neurological Exam: Alert, Awake, Oriented x3 - Psychiatric Exam Psychiatric exam: Normal Affect - Skin Skin Exam: Normal Color, Warm Assessment and Plan - Assessment and Plan (Free Text) Assessment: A-fib: rate controlled oral cardizem (at risk of Wheezing/hold beta jami), currently on lovenox, consider switch to oral eliquis (non-valvular), continue as per cardiolog -Moderate Chronic systolic heart failure: EF 35%, continue av greyson jami, continue negative balance, continue acei, continue statin - patient will benefit from PT/OT/activity oob to chair daily -continue oral diet -LE edema: avoid excess free water -dvt rx: lovenox -PUD ppx protonix -Patient to be started on oral cardizem and titrate off IV cardizem -Patient remains hemodynamically stable -d/w nursing -d/c sorin
[2019-01-02] MEDS: Enoxaparin 120 mg Syringe SC SCH ×2 (08:35→22:04)
--- NOTE | 2019-01-02 11:15 | CP.PCM.PN ---
Subjective - Date & Time of Evaluation Date of Evaluation: 01/02/19 Time of Evaluation: 11:00 - Subjective Subjective: patient has no current complaints.. tolerating oral medications Objective - Vital Signs/Intake and Output Vital Signs (last 24 hours): Temp Pulse Resp BP Pulse Ox 98.5 F 115 H 11 L 129/66 99 01/02/19 07:21 01/02/19 08:36 01/02/19 07:21 01/02/19 09:29 01/02/19 07:21 Intake and Output: 01/02/19 01/02/19 06:59 18:59 Intake Total 280 Output Total 1230 Balance -950 - Medications Medications: Current Medications Acetaminophen (Tylenol 325mg Tab) 650 mg PO Q6 PRN PRN Reason: Pain, Mild (1-3) Last Admin: 12/24/18 20:36 Dose: 650 mg Acetaminophen (Tylenol 325mg Tab) 650 mg PO Q4 PRN PRN Reason: Fever >100.4 F Last Admin: 12/31/18 21:23 Dose: 650 mg Albuterol/Ipratropium (Duoneb 3 Mg/0.5 Mg (3 Ml) Ud) 3 ml INH RQID [facility] Last Admin: 01/02/19 11:01 Dose: 3 ml Artificial Tears (Artificial Tears) 2 drop OU Q4 PRN PRN Reason: Dry eyes Last Admin: 12/31/18 21:23 Dose: 2 drop Atorvastatin Calcium (Lipitor) 20 mg PO DAILY [facility] Last Admin: 01/02/19 08:35 Dose: 20 mg Diltiazem HCl (Cardizem) 90 mg PO Q6 [facility] Last Admin: 01/02/19 09:28 Dose: 90 mg Docusate Sodium (Colace Liquid) 100 mg PO BID [facility] Last Admin: 01/02/19 08:37 Dose: 100 mg Enoxaparin Sodium (Lovenox) 110 mg SC Q12 [facility]; Protocol Last Admin: 01/02/19 08:35 Dose: 110 mg Furosemide (Lasix) 40 mg IV DAILY [facility] Last Admin: 01/02/19 09:29 Dose: 40 mg Meropenem 1 gm/ Sodium (Chloride) 100 mls @ 100 mls/hr IVPB Q8 [facility]; Protocol Last Admin: 01/02/19 08:37 Dose: 100 mls/hr Ipratropium [place] (Atrovent) 0.5 mg IH RQ6 [facility] Last Admin: 01/02/19 07:15 Dose: Not Given Lactic Acid (Lac-Hydrin 12% Lotion (225 G)) 1 applic TOP BID [facility] Last Admin: 01/02/19 08:35 Dose: 1 applic Lisinopril (Zestril) 2.5 mg PO DAILY [facility] Last Admin: 01/02/19 08:36 Dose: 2.5 mg Pantoprazole Sodium (Protonix Inj) 40 mg IVP Q12H [facility] Last Admin: 01/02/19 08:35 Dose: 40 mg Promethazine HCl/Dextromethorphan (Phenergan Dm Syrup) 10 ml PO Q4 [facility] Last Admin: 01/02/19 08:34 Dose: Not Given Tamsulosin HCl (Flomax) 0.4 mg PO DAILY [facility] Last Admin: 01/02/19 09:28 Dose: 0.4 mg - Labs Labs: 01/02/19 04:30 01/02/19 04:30 PT 14.3 Seconds (9.8-13.1) H 12/31/18 06:00 INR 1.3 12/31/18 06:00 APTT 36.7 Seconds (25.6-37.1) 12/31/18 06:00 - Constitutional Appears: Toxic - Head Exam Head Exam: NORMAL INSPECTION - Eye Exam Eye Exam: Normal appearance - ENT Exam ENT Exam: Mucous Membranes Moist - Neck Exam Neck Exam: Full ROM - Respiratory Exam Respiratory Exam: Decreased Breath Sounds - Cardiovascular Exam Cardiovascular Exam: Irregular Rhythm - GI/Abdominal Exam GI & Abdominal Exam: Normal Bowel Sounds - Rectal Exam Rectal Exam: Deferred - Extremities Exam Extremities Exam: Pedal Edema - Back Exam Back Exam: NORMAL INSPECTION - Neurological Exam Neurological Exam: Alert - Psychiatric Exam Psychiatric exam: Normal Affect - Skin Skin Exam: Normal Color Assessment and Plan (1) Atrial fibrillation with RVR Assessment & Plan: will continue oral cardizem. can titrate Status: Acute
--- NOTE | 2019-01-02 16:52 | CP.PCM.PN ---
Subjective - Date & Time of Evaluation Date of Evaluation: 01/02/19 Time of Evaluation: 13:00 - Subjective Subjective: alert, no AD, no SOB, on O2 NC, O2 sat 96% Objective - Vital Signs/Intake and Output Vital Signs (last 24 hours): Temp Pulse Resp BP Pulse Ox 98.1 F 124 H 14 114/84 93 L 01/02/19 16:00 01/02/19 16:00 01/02/19 16:00 01/02/19 16:00 01/02/19 16:00 Intake and Output: 01/02/19 01/02/19 06:59 18:59 Intake Total 280 Output Total 1230 Balance -950 - Medications Medications: Current Medications Acetaminophen (Tylenol 325mg Tab) 650 mg PO Q6 PRN PRN Reason: Pain, Mild (1-3) Last Admin: 12/24/18 20:36 Dose: 650 mg Acetaminophen (Tylenol 325mg Tab) 650 mg PO Q4 PRN PRN Reason: Fever >100.4 F Last Admin: 12/31/18 21:23 Dose: 650 mg Albuterol/Ipratropium (Duoneb 3 Mg/0.5 Mg (3 Ml) Ud) 3 ml INH RQID [facility] [place] Last Admin: 01/02/19 15:24 Dose: 3 ml Artificial Tears (Artificial Tears) 2 drop OU Q4 PRN PRN Reason: Dry eyes Last Admin: 12/31/18 21:23 Dose: 2 drop Atorvastatin Calcium (Lipitor) 20 mg PO DAILY [facility] Last Admin: 01/02/19 08:35 Dose: 20 mg Diltiazem HCl (Cardizem) 90 mg PO Q6 [facility] [place] Last Admin: 01/02/19 16:37 Dose: 90 mg Docusate Sodium (Colace Liquid) 100 mg PO BID [facility] [place] Last Admin: 01/02/19 16:37 Dose: 100 mg Enoxaparin Sodium (Lovenox) 110 mg SC Q12 [facility] [place]; Protocol Last Admin: 01/02/19 08:35 Dose: 110 mg Furosemide (Lasix) 40 mg IV DAILY [facility] [place] Last Admin: 01/02/19 09:29 Dose: 40 mg Meropenem 1 gm/ Sodium (Chloride) 100 mls @ 100 mls/hr IVPB Q8 [facility] [place]; Protocol Last Admin: 01/02/19 16:37 Dose: 100 mls/hr Ipratropium [place] (Atrovent) 0.5 mg IH RQ6 [facility] [place] Last Admin: 01/02/19 13:00 Dose: 0.5 mg Lactic Acid (Lac-Hydrin 12% Lotion (225 G)) 1 applic TOP BID [facility] [place] Last Admin: 01/02/19 16:38 Dose: 1 applic Lisinopril (Zestril) 2.5 mg PO DAILY [facility] [place] Last Admin: 01/02/19 08:36 Dose: 2.5 mg Pantoprazole Sodium (Protonix Inj) 40 mg IVP Q12H [facility] [place] Last Admin: 01/02/19 08:35 Dose: 40 mg Promethazine HCl/Dextromethorphan (Phenergan Dm Syrup) 10 ml PO Q4 [facility] [place] Last Admin: 01/02/19 16:38 Dose: 10 ml Tamsulosin HCl (Flomax) 0.4 mg PO DAILY [facility] [place] Last Admin: 01/02/19 09:28 Dose: 0.4 mg Verapamil HCl (Verapamil Inj) 5 mg IVP Q4H PRN PRN Reason: Other Last Admin: 01/02/19 13:37 Dose: 5 mg - Labs Labs: 01/02/19 04:30 01/02/19 04:30 PT 14.3 Seconds (9.8-13.1) H 12/31/18 06:00 INR 1.3 12/31/18 06:00 APTT 36.7 Seconds (25.6-37.1) 12/31/18 06:00 - Constitutional Appears: Chronically Ill - Head Exam Head Exam: NORMAL INSPECTION - Eye Exam Eye Exam: PERRL - ENT Exam ENT Exam: Normal Exam - Neck Exam Neck Exam: Normal Inspection - Respiratory Exam Respiratory Exam: Decreased Breath Sounds (at bases), Rhonchi - Cardiovascular Exam Cardiovascular Exam: Irregular Rhythm - GI/Abdominal Exam GI & Abdominal Exam: Soft, Normal Bowel Sounds - Extremities Exam Additional comments: edema - Back Exam Back Exam: NORMAL INSPECTION - Neurological Exam Neurological Exam: Alert, CN II-XII Intact (no focal motor/sensory deficit, generalized weakness) - Psychiatric Exam Psychiatric exam: Anxious Assessment and Plan (1) Aspiration pneumonia of right lung Status: Acute (2) Multifocal pneumonia Status: Acute (3) S/P thoracentesis Status: Acute (4) Pleural effusion, bilateral Status: Acute (5) Respiratory failure Status: Resolved (6) COPD (chronic obstructive pulmonary disease) Status: Chronic (7) Atrial fibrillation with RVR Status: Acute (8) Anemia Status: Acute - Assessment and Plan (Free Text) Plan: continue Nicole Vanessa, [place], monitor Hgb Critical care time: 32 min.
[2019-01-02] MEDS ORDERED: Metoprolol 1 mg/ml Inj IVP ONE (16:57)
[2019-01-03] MEDS: Promethazine DM 12.5 mg-30 mg/10 ml Syrup PO SCH ×4 (01:10→16:12)
[2019-01-03] MEDS: Meropenem 1 GM in Sodium Chloride 0.9% 100 ML IVPB SCH ×2 (01:10→21:13)
[2019-01-03] MEDS: Ipratropium 0.02% Inhal Soln (0.5 mg/2.5 ml) UD IH SCH ×4 (03:43→19:09)
[2019-01-03] MEDS: Albuterol-Ipratrop 3 mg / 0.5 (3 ml) UD INH SCH ×4 (07:27→19:09)
[2019-01-03 08:05] LABS: HEMOGLOBIN 9.4 g/dL (12.0-18.0); MEAN CELL VOLUME 100.5 fl (80.0-94.0); MEAN CORPUSCULAR HEMOGLOBIN 33.6 pg (27.0-31.0); MEAN CORPUSCULAR HGB CONC 33.4 g/dL (33.0-37.0); RBC 2.79 Mil/uL (4.40-5.90); RED CELL DISTRIBUTION WIDTH 14.7 % (11.5-14.5); WHITE BLOOD COUNT 6.6 K/uL (4.8-10.8)
[2019-01-03 08:37] LABS: ALB/GLOB RATIO 0.9 (1.0-2.1); ALBUMIN 2.9 g/dL (3.5-5.0); ALT/SGPT 42 U/L (21-72); AST/SGOT 77 U/L (17-59); BLOOD UREA NITROGEN 23 mg/dl (9-20); CALCIUM 8.3 mg/dL (8.4-10.2); GFR NON-AFRICAN AMERICAN > 60
[2019-01-03] MEDS: Enoxaparin 120 mg Syringe SC SCH ×2 (09:06→20:40)
--- NOTE | 2019-01-03 10:37 | PCM.PROC ---
Procedures Attestation:: I certify that I have explained the specified Operation(s) or Procedure(s), risks, benefits and reasonable alternatives to the Patient and/or other person responsible. The opportunity was given to ask questions and all questions answered - Extubation Clinical Parameters: Resolution/Stabilization of disease process, Hemodynamically Stable, Intact Cough/Gag Reflex, Spontaneous Respirations, Acceptable Vent Settings (FIO2<50%, PEEP<8, PaO2>75, pH>7.25) Weaning Criteria Met: Yes General Weaning Approaches: Pressure Support Ventilation (PSV) Weaning Patient Condition: Patient has been successfully extubated and assessed Oxygen Therapy: O2 via Venti Mask Patient Tolerated Procedure: Well
--- NOTE | 2019-01-03 11:04 | CP.PCM.PN ---
Subjective - Date & Time of Evaluation Date of Evaluation: 01/03/19 Time of Evaluation: 08:00 - Subjective Subjective: Asymptomatic, moved to another room, rowell out Objective - Vital Signs/Intake and Output Vital Signs (last 24 hours): Temp Pulse Resp BP Pulse Ox 97.8 F 136 H 15 137/92 H 95 01/03/19 06:00 01/03/19 09:06 01/03/19 06:00 01/03/19 09:15 01/03/19 06:00 Intake and Output: 01/03/19 01/03/19 06:59 18:59 Intake Total 112 Output Total 500 Balance -388 - Medications Medications: Current Medications Acetaminophen (Tylenol 325mg Tab) 650 mg PO Q6 PRN PRN Reason: Pain, Mild (1-3) Last Admin: 12/24/18 20:36 Dose: 650 mg Acetaminophen (Tylenol 325mg Tab) 650 mg PO Q4 PRN PRN Reason: Fever >100.4 F Last Admin: 12/31/18 21:23 Dose: 650 mg Albuterol/Ipratropium (Duoneb 3 Mg/0.5 Mg (3 Ml) Ud) 3 ml INH RQID [facility] Last Admin: 01/03/19 11:00 Dose: 3 ml Artificial Tears (Artificial Tears) 2 drop OU Q4 PRN PRN Reason: Dry eyes Last Admin: 12/31/18 21:23 Dose: 2 drop Atorvastatin Calcium (Lipitor) 20 mg PO DAILY [facility] Last Admin: 01/03/19 09:05 Dose: 20 mg Diltiazem HCl (Cardizem) 90 mg PO Q6 [facility] Last Admin: 01/03/19 09:04 Dose: 90 mg Docusate Sodium (Colace Liquid) 100 mg PO BID [facility] Last Admin: 01/03/19 09:04 Dose: 100 mg Enoxaparin Sodium (Lovenox) 110 mg SC Q12 [facility]; Protocol Last Admin: 01/03/19 09:06 Dose: 110 mg Furosemide (Lasix) 40 mg IV DAILY [facility] Last Admin: 01/03/19 09:15 Dose: 40 mg Ipratropium [place] (Atrovent) 0.5 mg IH RQ6 [facility] Last Admin: 01/03/19 10:57 Dose: Not Given Lactic Acid (Lac-Hydrin 12% Lotion (225 G)) 1 applic TOP BID [facility] Last Admin: 01/03/19 09:05 Dose: 1 applic Lisinopril (Zestril) 2.5 mg PO DAILY [facility] Last Admin: 01/03/19 09:06 Dose: 2.5 mg Metoprolol Tartrate (Lopressor) 50 mg PO Q12 [facility] Last Admin: 01/03/19 09:05 Dose: 50 mg Pantoprazole Sodium (Protonix Inj) 40 mg IVP Q12H [facility] Last Admin: 01/03/19 09:06 Dose: 40 mg Promethazine HCl/Dextromethorphan (Phenergan Dm Syrup) 10 ml PO Q4 [facility] Last Admin: 01/03/19 09:06 Dose: 10 ml Tamsulosin HCl (Flomax) 0.4 mg PO DAILY [facility] Last Admin: 01/03/19 09:05 Dose: 0.4 mg - Labs Labs: 01/03/19 07:30 01/03/19 07:30 PT 14.3 Seconds (9.8-13.1) H 12/31/18 06:00 INR 1.3 12/31/18 06:00 APTT 36.7 Seconds (25.6-37.1) 12/31/18 06:00 - Constitutional Appears: Non-toxic, No Acute Distress - Head Exam Head Exam: NORMAL INSPECTION - Eye Exam Eye Exam: EOMI - ENT Exam ENT Exam: Mucous Membranes Moist - Respiratory Exam Respiratory Exam: Clear to Ausculation Bilateral, NORMAL BREATHING PATTERN - Cardiovascular Exam Cardiovascular Exam: REGULAR RHYTHM - GI/Abdominal Exam GI & Abdominal Exam: Soft, Normal Bowel Sounds - Extremities Exam Extremities Exam: Pedal Edema - Neurological Exam Neurological Exam: Alert, Awake, Oriented x3 - Psychiatric Exam Psychiatric exam: Normal Affect Assessment and Plan - Assessment and Plan (Free Text) Assessment: -A-fib: rate controlled oral cardizem, yesterday HR increased to 160s on max dose of cardizem, added lopressor (previous records reveal patient was regularly on max dose of cardizem and lopressor), -Moderate Chronic systolic heart failure: EF 35%, continue av greyson jami, continue negative balance, continue acei, continue statin - patient will benefit from PT/OT/activity oob to chair daily -continue oral diet -LE edema: avoid excess free water -dvt rx: lovenox -PUD ppx protonix -rowell out, continue flomax -Patient remains hemodynamically stable -PT/OT OOB to chair
--- NOTE | 2019-01-03 11:55 | CP.PCM.PN ---
Subjective - Date & Time of Evaluation Date of Evaluation: 01/03/19 Time of Evaluation: 11:55 - Subjective Subjective: ID Note- Patient seen and examined today in ICU. Patient is awake and alert and sitting up in bed and looks much improved clinically. He is s/p left thoracenthesis 2 days ago for left pleural effusion. as per nurse his HR is better controlled and is now off the cardizem drip and only on oral meds for his heart rate. Objective - Vital Signs/Intake and Output Vital Signs (last 24 hours): Temp Pulse Resp BP Pulse Ox 97.8 F 136 H 15 137/92 H 95 01/03/19 06:00 01/03/19 09:06 01/03/19 06:00 01/03/19 09:15 01/03/19 06:00 Intake and Output: 01/03/19 01/03/19 06:59 18:59 Intake Total 112 Output Total 500 Balance -388 - Medications Medications: Current Medications Acetaminophen (Tylenol 325mg Tab) 650 mg PO Q6 PRN PRN Reason: Pain, Mild (1-3) Last Admin: 12/24/18 20:36 Dose: 650 mg Acetaminophen (Tylenol 325mg Tab) 650 mg PO Q4 PRN PRN Reason: Fever >100.4 F Last Admin: 12/31/18 21:23 Dose: 650 mg Albuterol/Ipratropium (Duoneb 3 Mg/0.5 Mg (3 Ml) Ud) 3 ml INH RQID [facility] Last Admin: 01/03/19 11:00 Dose: 3 ml Artificial Tears (Artificial Tears) 2 drop OU Q4 PRN PRN Reason: Dry eyes Last Admin: 12/31/18 21:23 Dose: 2 drop Atorvastatin Calcium (Lipitor) 20 mg PO DAILY [facility] Last Admin: 01/03/19 09:05 Dose: 20 mg Diltiazem HCl (Cardizem) 90 mg PO Q6 [facility] Last Admin: 01/03/19 09:04 Dose: 90 mg Docusate Sodium (Colace Liquid) 100 mg PO BID [facility] Last Admin: 01/03/19 09:04 Dose: 100 mg Enoxaparin Sodium (Lovenox) 110 mg SC Q12 [facility]; Protocol Last Admin: 01/03/19 09:06 Dose: 110 mg Furosemide (Lasix) 40 mg IV DAILY [facility] Last Admin: 01/03/19 09:15 Dose: 40 mg Ipratropium [place] (Atrovent) 0.5 mg IH RQ6 [facility] Last Admin: 01/03/19 10:57 Dose: Not Given Lactic Acid (Lac-Hydrin 12% Lotion (225 G)) 1 applic TOP BID [facility] Last Admin: 01/03/19 09:05 Dose: 1 applic Lisinopril (Zestril) 2.5 mg PO DAILY [facility] Last Admin: 01/03/19 09:06 Dose: 2.5 mg Metoprolol Tartrate (Lopressor) 50 mg PO Q12 [facility] Last Admin: 01/03/19 09:05 Dose: 50 mg Pantoprazole Sodium (Protonix Inj) 40 mg IVP Q12H [facility] Last Admin: 01/03/19 09:06 Dose: 40 mg Promethazine HCl/Dextromethorphan (Phenergan Dm Syrup) 10 ml PO Q4 [facility] Last Admin: 01/03/19 09:06 Dose: 10 ml Tamsulosin HCl (Flomax) 0.4 mg PO DAILY [facility] Last Admin: 01/03/19 09:05 Dose: 0.4 mg - Labs Labs: - Additional Findings Additional findings: - Constitutional Appears: No Acute Distress - Head Exam Head Exam: ATRAUMATIC - Eye Exam Eye Exam: EOMI - Neck Exam Neck Exam: Full ROM - Respiratory Exam Respiratory Exam: NORMAL BREATHING PATTERN Additional comments: better aeration b/l decreased at right base no wheezing - Cardiovascular Exam Cardiovascular Exam: RRR, +S1, +S2 - GI/Abdominal Exam GI & Abdominal Exam: Soft, Normal Bowel Sounds Additional comments: NT, ND - Extremities Exam Extremities Exam: Normal Inspection - Neurological Exam Neurological Exam: Alert, Awake, Oriented x 3 Laboratory Results - last 72 hr 12/31/18 12/31/18 12/31/18 09:06 15:40 15:40 WBC RBC Hgb Hct MCV MCH MCHC RDW Plt Count MPV Neut % (Auto) Lymph % (Auto) [place] % (Auto) Eos % (Auto) Baso % (Auto) Neut # (Auto) Lymph # (Auto) [place] # (Auto) Eos # (Auto) Baso # (Auto) pCO2 pO2 HCO3 ABG pH ABG Total CO2 ABG O2 Saturation ABG Base Excess [place] Test ABG Potassium A-a O2 Difference Sodium Chloride Glucose Lactate Vent Mode FiO2 Potassium Carbon Dioxide Anion Gap BUN Creatinine Est GFR ( Amer) Est GFR (Non-Af Amer) Random Glucose Calcium Phosphorus Magnesium Total Bilirubin AST ALT Alkaline Phosphatase Lactate Dehydrogenase Total Protein Albumin Globulin Albumin/Globulin Ratio Arterial Blood Potassium Fluid Source Pleural/thoracentesi Fluid Appearance Bloody Fluid WBC 144.0 Fluid RBC 82426.0 H Fluid Tot Cell Count 100 H Fluid Neutrophils 27.0 H Fluid Lymphocytes 30.0 H Fld Monocyte/Macrophag 43 H Fluid Glucose 104 Fluid Total Protein Fluid LDH 211 Fluid Amylase < 30 Fluid Comment Cloudy Stool Occult Blood Positive H 12/31/18 01/01/19 01/01/19 15:40 01:58 04:03 WBC RBC Hgb Hct MCV MCH MCHC RDW Plt Count MPV Neut % (Auto) Lymph % (Auto) [place] % (Auto) Eos % (Auto) Baso % (Auto) Neut # (Auto) Lymph # (Auto) [place] # (Auto) Eos # (Auto) Baso # (Auto) pCO2 43 46 H pO2 51 L 74 L HCO3 34.7 H 34.3 H ABG pH 7.54 H 7.51 H ABG Total CO2 38.1 H 38.1 H ABG O2 Saturation 93.0 L 98.3 H ABG Base Excess 12.8 H 12.1 H [place] Test Yes Yes ABG Potassium 4.4 4.3 A-a O2 Difference 123.0 225.0 Sodium 139.0 138.0 Chloride 104.0 104.0 Glucose 93 93 Lactate 0.8 0.6 L Vent Mode 50vm FiO2 32.0 50.0 Potassium Carbon Dioxide Anion Gap BUN Creatinine Est GFR ( Amer) Est GFR (Non-Af Amer) Random Glucose Calcium Phosphorus Magnesium Total Bilirubin AST ALT Alkaline Phosphatase Lactate Dehydrogenase Total Protein Albumin Globulin Albumin/Globulin Ratio Arterial Blood Potassium 4.4 4.3 Fluid Source Fluid Appearance Fluid WBC Fluid RBC Fluid Tot Cell Count Fluid Neutrophils Fluid Lymphocytes Fld Monocyte/Macrophag Fluid Glucose Fluid Total Protein < 2.0 Fluid LDH Fluid Amylase Fluid Comment Stool Occult Blood 01/01/19 01/01/19 01/02/19 05:00 05:00 04:30 WBC 7.6 5.2 RBC 2.70 L 3.09 L Hgb 9.3 L 11.4 L D Hct 27.8 L 32.7 L MCV 103.1 H D 105.9 H D MCH 34.4 H 36.7 H MCHC 33.3 34.7 RDW 14.4 14.6 H Plt Count 262 232 MPV 8.2 8.2 Neut % (Auto) 76.3 H 71.8 Lymph % (Auto) 11.1 L 13.9 L [place] % (Auto) 10.1 H 9.5 Eos % (Auto) 2.0 3.9 Baso % (Auto) 0.5 0.9 Neut # (Auto) 5.8 3.8 Lymph # (Auto) 0.8 L 0.7 L [place] # (Auto) 0.8 0.5 Eos # (Auto) 0.2 0.2 Baso # (Auto) 0.0 0.0 pCO2 pO2 HCO3 ABG pH ABG Total CO2 ABG O2 Saturation ABG Base Excess [place] Test ABG Potassium A-a O2 Difference Sodium 139 Chloride 100 Glucose Lactate Vent Mode FiO2 Potassium 4.2 Carbon Dioxide 35 H Anion Gap 8 L BUN 35 H Creatinine 0.8 Est GFR ( Amer) > 60 Est GFR (Non-Af Amer) > 60 Random Glucose 92 Calcium 8.6 Phosphorus Magnesium Total Bilirubin 0.7 AST 43 ALT 43 Alkaline Phosphatase 138 H Lactate Dehydrogenase 532 Total Protein 5.6 L Albumin 2.7 L Globulin 2.9 Albumin/Globulin Ratio 0.9 L Arterial Blood Potassium Fluid Source Fluid Appearance Fluid WBC Fluid RBC Fluid Tot Cell Count Fluid Neutrophils Fluid Lymphocytes Fld Monocyte/Macrophag Fluid Glucose Fluid Total Protein Fluid LDH Fluid Amylase Fluid Comment Stool Occult Blood 01/02/19 01/03/19 01/03/19 04:30 07:30 07:30 WBC 6.6 RBC 2.79 L Hgb 9.4 L D Hct 28.0 L MCV 100.5 H D MCH 33.6 H MCHC 33.4 RDW 14.7 H Plt Count 308 MPV Neut % (Auto) Lymph % (Auto) [place] % (Auto) Eos % (Auto) Baso % (Auto) Neut # (Auto) Lymph # (Auto) [place] # (Auto) Eos # (Auto) Baso # (Auto) pCO2 pO2 HCO3 ABG pH ABG Total CO2 ABG O2 Saturation ABG Base Excess [place] Test ABG Potassium A-a O2 Difference Sodium 138 137 Chloride 98 100 Glucose Lactate Vent Mode FiO2 Potassium 4.0 4.1 Carbon Dioxide 38 H 33 H Anion Gap 6 L 8 L BUN 27 H 23 H Creatinine 0.8 0.7 L Est GFR ( Amer) > 60 > 60 Est GFR (Non-Af Amer) > 60 > 60 Random Glucose 92 92 Calcium 8.6 8.3 L Phosphorus 3.0 Magnesium 2.2 Total Bilirubin 0.7 0.6 AST 43 77 H D ALT 42 42 Alkaline Phosphatase 143 H 175 H D Lactate Dehydrogenase Total Protein 5.7 L 6.0 L Albumin 2.6 L 2.9 L Globulin 3.0 3.1 Albumin/Globulin Ratio 0.9 L 0.9 L Arterial Blood Potassium Fluid Source Fluid Appearance Fluid WBC Fluid RBC Fluid Tot Cell Count Fluid Neutrophils Fluid Lymphocytes Fld Monocyte/Macrophag Fluid Glucose Fluid Total Protein Fluid LDH Fluid Amylase Fluid Comment Stool Occult Blood Microbiology 12/26/18 09:00 Trachasp Gram Stain - Final 12/26/18 09:00 Trachasp Sputum Culture - Final No growth. 12/22/18 16:49 Blood-Venous Blood Culture - Final NO GROWTH AFTER 5 DAYS 12/22/18 16:49 Blood-Venous Gram Stain - Final TEST NOT PERFORMED 12/21/18 17:25 Blood-Venous Blood Culture - Final NO GROWTH AFTER 5 DAYS 12/21/18 17:25 Blood-Venous Gram Stain - Final TEST NOT PERFORMED 12/21/18 17:20 Blood-Venous Blood Culture - Final NO GROWTH AFTER 5 DAYS 12/21/18 17:20 Blood-Venous Gram Stain - Final TEST NOT PERFORMED 12/23/18 17:10 Trachasp Gram Stain - Final 12/23/18 17:10 Trachasp Sputum Culture - Final No growth. 12/22/18 07:32 Urine,Clean Catch Urine Culture - Final No Growth (<1,000 CFU/ML) 12/23/18 15:30 Nose MRSA Culture (Admit) - Final MRSA NOT DETECTED Assessment and Plan (1) Atrial fibrillation with RVR Status: Acute (2) Altered mental status Status: Acute (3) Pneumonia Status: Acute (4) Multifocal pneumonia Status: Acute - Assessment and Plan (Free Text) Assessment: A/P- 73 year old male with a.fib and now found to have altered mental status and Right sided pneumonia , developed hypercapneic resp failure yesterday afternoon , s/p intubation and transferred to ICU then extubated after few days s/p left thoracenthesis 2 days ago cell count not c/w empyema as there is only 27% pmn of 10,000 total wbc clinically much improved afebrile normal wbc count Blood cx- neg x 3 trach asp cx- Negative x 2 hepatitis panel- neg urine legionella AG- neg mycoplasma IGM- negative PLan- f/u pleural fluid gram stain and cx. continue with IV meropnem day #12 advise 2 more days of meropnem. all labs and imaging and chart notes reviewed. Critical care time spent 30 minutes.
[2019-01-03] MEDS ORDERED: Meropenem 1 GM in Sodium Chloride 0.9% 100 ML IVPB SCH (13:00)
--- NOTE | 2019-01-03 15:03 | RAD ---
Date of service: 01/03/2019 PROCEDURE: CHEST RADIOGRAPH, 1 VIEW HISTORY: Atrial fibrillation. Congestive heart failure COMPARISON: 12/31/2018. FINDINGS: LUNGS: Persistent infiltrate/airspace disease primarily affecting right lower lobe, to lesser extent left lower lobe. PLEURA: No pneumothorax or pleural fluid seen. CARDIOVASCULAR: Atherosclerotic calcifications identified primarily aortic arch. Cardiomegaly. PICC line in satisfactory position unchanged. OSSEOUS STRUCTURES: No significant abnormalities. VISUALIZED UPPER ABDOMEN: Normal. OTHER FINDINGS: None. IMPRESSION: Stable infiltrate right lower lobe. New infiltrate left lower lobe.
--- NOTE | 2019-01-03 17:08 | CP.PCM.PN ---
Subjective - Date & Time of Evaluation Date of Evaluation: 01/03/19 Time of Evaluation: 10:20 - Subjective Subjective: F/U Pulmonary consult No SOB on O2 NC, no cough, no CP. Objective - Vital Signs/Intake and Output Vital Signs (last 24 hours): Temp Pulse Resp BP Pulse Ox 98.2 F 108 H 15 117/70 94 L 01/03/19 16:00 01/03/19 16:00 01/03/19 16:00 01/03/19 16:00 01/03/19 16:00 Intake and Output: 01/03/19 01/03/19 06:59 18:59 Intake Total 112 1700 Output Total 500 500 Balance -388 1200 - Medications Medications: Current Medications Acetaminophen (Tylenol 325mg Tab) 650 mg PO Q6 PRN PRN Reason: Pain, Mild (1-3) Last Admin: 12/24/18 20:36 Dose: 650 mg Acetaminophen (Tylenol 325mg Tab) 650 mg PO Q4 PRN PRN Reason: Fever >100.4 F Last Admin: 12/31/18 21:23 Dose: 650 mg Albuterol/Ipratropium (Duoneb 3 Mg/0.5 Mg (3 Ml) Ud) 3 ml INH RQID [facility] Last Admin: 01/03/19 15:19 Dose: 3 ml Artificial Tears (Artificial Tears) 2 drop OU Q4 PRN PRN Reason: Dry eyes Last Admin: 12/31/18 21:23 Dose: 2 drop Atorvastatin Calcium (Lipitor) 20 mg PO DAILY [facility] Last Admin: 01/03/19 09:05 Dose: 20 mg Diltiazem HCl (Cardizem) 90 mg PO Q6 [facility] Last Admin: 01/03/19 16:11 Dose: 90 mg Docusate Sodium (Colace Liquid) 100 mg PO BID [facility] Last Admin: 01/03/19 16:11 Dose: 100 mg Enoxaparin Sodium (Lovenox) 110 mg SC Q12 [facility]; Protocol Last Admin: 01/03/19 09:06 Dose: 110 mg Furosemide (Lasix) 40 mg IV DAILY [facility] Last Admin: 01/03/19 09:15 Dose: 40 mg Meropenem 1 gm/ Sodium (Chloride) 100 mls @ 100 mls/hr IVPB Q8 [facility]; Protocol Last Admin: 01/03/19 14:00 Dose: 100 mls/hr Ipratropium [place] (Atrovent) 0.5 mg IH RQ6 [facility] Last Admin: 01/03/19 10:57 Dose: Not Given Lactic Acid (Lac-Hydrin 12% Lotion (225 G)) 1 applic TOP BID [facility] Last Admin: 01/03/19 16:11 Dose: 1 applic Lisinopril (Zestril) 2.5 mg PO DAILY [facility] Last Admin: 01/03/19 09:06 Dose: 2.5 mg Metoprolol Tartrate (Lopressor) 50 mg PO Q12 [facility] Last Admin: 01/03/19 09:05 Dose: 50 mg Pantoprazole Sodium (Protonix Inj) 40 mg IVP Q12H [facility] Last Admin: 01/03/19 09:06 Dose: 40 mg Promethazine HCl/Dextromethorphan (Phenergan Dm Syrup) 10 ml PO Q8 [facility] Last Admin: 01/03/19 16:12 Dose: 10 ml Tamsulosin HCl (Flomax) 0.4 mg PO DAILY [facility] Last Admin: 01/03/19 09:05 Dose: 0.4 mg - Labs Labs: 01/03/19 07:30 01/03/19 07:30 PT 14.3 Seconds (9.8-13.1) H 12/31/18 06:00 INR 1.3 12/31/18 06:00 APTT 36.7 Seconds (25.6-37.1) 12/31/18 06:00 - Constitutional Appears: Chronically Ill - Head Exam Head Exam: NORMAL INSPECTION - Eye Exam Eye Exam: PERRL - ENT Exam ENT Exam: Normal Exam - Neck Exam Neck Exam: Normal Inspection - Respiratory Exam Respiratory Exam: Decreased Breath Sounds (at bases), Rhonchi - Cardiovascular Exam Cardiovascular Exam: Irregular Rhythm - GI/Abdominal Exam GI & Abdominal Exam: Soft, Normal Bowel Sounds - Extremities Exam Additional comments: Edema - Back Exam Back Exam: NORMAL INSPECTION - Neurological Exam Neurological Exam: Alert, CN II-XII Intact Additional comments: No focal motor/sensory deficit, generalized weakness - Psychiatric Exam Psychiatric exam: Anxious - Skin Skin Exam: Warm Assessment and Plan (1) Aspiration pneumonia of right lung Status: Acute (2) Multifocal pneumonia Status: Acute (3) S/P thoracentesis Status: Acute (4) Pleural effusion, bilateral Status: Acute (5) Respiratory failure Status: Resolved (6) COPD (chronic obstructive pulmonary disease) Status: Chronic (7) Atrial fibrillation with RVR Status: Acute (8) Anemia Status: Acute - Assessment and Plan (Free Text) Plan: Repeat CT chest when stable and A Fib more controlled. Continue Merren, Duoneb, Atrovent, Phenergan DM and rest of Tx. Critical care time: 33 min.
--- NOTE | 2019-01-03 18:09 | CP.PCM.PN ---
Subjective - Date & Time of Evaluation Date of Evaluation: 01/03/19 Time of Evaluation: 17:50 - Subjective Subjective: patient feels well. less dyspneic. Objective - Vital Signs/Intake and Output Vital Signs (last 24 hours): Temp Pulse Resp BP Pulse Ox 98.2 F 108 H 15 117/70 94 L 01/03/19 16:00 01/03/19 16:00 01/03/19 16:00 01/03/19 16:00 01/03/19 16:00 Intake and Output: 01/03/19 01/03/19 06:59 18:59 Intake Total 112 2100 Output Total 500 500 Balance -388 1600 - Medications Medications: Current Medications Acetaminophen (Tylenol 325mg Tab) 650 mg PO Q6 PRN PRN Reason: Pain, Mild (1-3) Last Admin: 12/24/18 20:36 Dose: 650 mg Acetaminophen (Tylenol 325mg Tab) 650 mg PO Q4 PRN PRN Reason: Fever >100.4 F Last Admin: 12/31/18 21:23 Dose: 650 mg Albuterol/Ipratropium (Duoneb 3 Mg/0.5 Mg (3 Ml) Ud) 3 ml INH RQID [facility] Last Admin: 01/03/19 15:19 Dose: 3 ml Artificial Tears (Artificial Tears) 2 drop OU Q4 PRN PRN Reason: Dry eyes Last Admin: 12/31/18 21:23 Dose: 2 drop Atorvastatin Calcium (Lipitor) 20 mg PO DAILY [facility] Last Admin: 01/03/19 09:05 Dose: 20 mg Diltiazem HCl (Cardizem) 90 mg PO Q6 [facility] Last Admin: 01/03/19 16:11 Dose: 90 mg Docusate Sodium (Colace Liquid) 100 mg PO BID [facility] Last Admin: 01/03/19 16:11 Dose: 100 mg Enoxaparin Sodium (Lovenox) 110 mg SC Q12 [facility]; Protocol Last Admin: 01/03/19 09:06 Dose: 110 mg Furosemide (Lasix) 40 mg IV DAILY [facility] Last Admin: 01/03/19 09:15 Dose: 40 mg Meropenem 1 gm/ Sodium (Chloride) 100 mls @ 100 mls/hr IVPB Q8@0600,1400,2200 [facility]; Protocol Ipratropium [place] (Atrovent) 0.5 mg IH RQ6 [facility] Last Admin: 01/03/19 10:57 Dose: Not Given Lactic Acid (Lac-Hydrin 12% Lotion (225 G)) 1 applic TOP BID [facility] Last Admin: 01/03/19 16:11 Dose: 1 applic Lisinopril (Zestril) 2.5 mg PO DAILY [facility] Last Admin: 01/03/19 09:06 Dose: 2.5 mg Metoprolol Tartrate (Lopressor) 50 mg PO Q12 [facility] Last Admin: 01/03/19 09:05 Dose: 50 mg Pantoprazole Sodium (Protonix Inj) 40 mg IVP Q12H [facility] Last Admin: 01/03/19 09:06 Dose: 40 mg Promethazine HCl/Dextromethorphan (Phenergan Dm Syrup) 10 ml PO Q8 [facility] Last Admin: 01/03/19 16:12 Dose: 10 ml Tamsulosin HCl (Flomax) 0.4 mg PO DAILY [facility] Last Admin: 01/03/19 09:05 Dose: 0.4 mg - Labs Labs: 01/03/19 07:30 01/03/19 07:30 PT 14.3 Seconds (9.8-13.1) H 12/31/18 06:00 INR 1.3 12/31/18 06:00 APTT 36.7 Seconds (25.6-37.1) 12/31/18 06:00 - Constitutional Appears: Non-toxic - Head Exam Head Exam: NORMAL INSPECTION - Eye Exam Eye Exam: Normal appearance - ENT Exam ENT Exam: Mucous Membranes Moist - Neck Exam Neck Exam: Full ROM - Respiratory Exam Respiratory Exam: Decreased Breath Sounds - Cardiovascular Exam Cardiovascular Exam: Irregular Rhythm - GI/Abdominal Exam GI & Abdominal Exam: Normal Bowel Sounds - Rectal Exam Rectal Exam: Deferred - Extremities Exam Extremities Exam: absent: Pedal Edema - Back Exam Back Exam: NORMAL INSPECTION - Neurological Exam Neurological Exam: Alert - Psychiatric Exam Psychiatric exam: Normal Affect - Skin Skin Exam: Normal Color Assessment and Plan (1) Atrial fibrillation with RVR Assessment & Plan: better controlled. continue current medications and attempt to titrate. Status: Acute
[2019-01-04] MEDS: Promethazine DM 12.5 mg-30 mg/10 ml Syrup PO SCH ×3 (00:41→16:33)
[2019-01-04] MEDS: Ipratropium 0.02% Inhal Soln (0.5 mg/2.5 ml) UD IH SCH ×4 (01:43→19:03)
[2019-01-04] MEDS: Meropenem 1 GM in Sodium Chloride 0.9% 100 ML IVPB SCH ×3 (05:01→21:01)
[2019-01-04 05:21] LABS: BASO # 0.1 K/uL (0.0-0.2); BASO % 0.9 % (0.0-2.0); EOS # 0.2 K/uL (0.0-0.7); EOS % 4.2 % (0.0-4.0); HEMOGLOBIN 9.3 g/dL (12.0-18.0); LYMPH # 0.9 K/uL (1.0-4.3); LYMPH % 15.8 % (20.0-40.0); MEAN CELL VOLUME 109.8 fl (80.0-94.0); MEAN CORPUSCULAR HEMOGLOBIN 38.9 pg (27.0-31.0); MEAN CORPUSCULAR HGB CONC 35.4 g/dL (33.0-37.0); MEAN PLATELET VOLUME 8.2 fl (7.2-11.7); MONO # 0.6 K/uL (0.0-0.8); MONO % 9.4 % (0.0-10.0); NEUT # 4.1 K/uL (1.8-7.0); NEUT % 69.7 % (50.0-75.0); RBC 2.39 Mil/uL (4.40-5.90); RED CELL DISTRIBUTION WIDTH 14.9 % (11.5-14.5)
[2019-01-04 05:28] LABS: ALB/GLOB RATIO 0.9 (1.0-2.1); ALBUMIN 2.9 g/dL (3.5-5.0); ALT/SGPT 44 U/L (21-72); AST/SGOT 41 U/L (17-59); BLOOD UREA NITROGEN 21 mg/dl (9-20); CALCIUM 8.3 mg/dL (8.4-10.2); GFR NON-AFRICAN AMERICAN > 60
--- NOTE | 2019-01-04 07:46 | CP.CCUPN ---
<Cate Londono - Last Filed: 01/04/19 11:13> CCU Subjective - Physician Review Subjective (Free Text): Over the course of the weekend, patient was switched from IV cardizem and transitioned to PO meds Rowell was discontinued, voiding via urinal Patient seen and examined by bedside this AM On NC 3L, breathing 98-100% Heart rate from 110's -160's, a fib on monitor Doing well, denies chest pain, dyspnea, working with PT PICC line present on RUE Assessment/Plan: 1. A Fib, acute on chronic -uncontrolled -cardio on board -EKG no acute ST or T wave changes -Echo EF 35-40% -ext US on admission: no DVTs -c/w Cardizem 90mg Q6 and Metropolol 50 Q12 -will increasing Metropolol to 75mg BID -c/w Lovenox 110 SC 2. Pneumonia -CXR 01/03 b/l infiltrate noted -procalcitonin ordered -on Jacky, D12 -ID on board, two more days of IV abx 3. Acute renal failure -improving, good output -c/w flomax 4. Pleural effusion, resolved -resolved, not seen on CXR 01/03 -s/p thoracentesis on 12/31, transudative fluid 5. Acute respiratory failure, resolved -likely 2/2 to pneumonia, pleural effusion -successfully extubated -duonab inh treatments 6. Altered mental status, resolved -likely 2/2 to metabolic encephalopathy -CT head no acute pathology 7. Anasarca -improving -likely 2/2 to fluid overload and hypoalbuminia -tolerating diuresis, c/w IV lasix -cont to monitor urine output 8. Anemia, acute -likely 2/2 to bleeding from femoral line site -h/h stable at this time 9. Skin moles -black moles noted in skin (largest approx 0.5cm) -consider skin biopsy 10. Hematuria -resolved -likely 2/2 to trauma while rowell cath inserted -rowell dc'ed 11. Diet -swallow eval recs appreciated, pureed diet with honey thick liquids 12. DVT prolx -Lovenox SC CCU Objective - Vital Signs / Intake & Output Vital Signs (Last 4 hours): Vital Signs Temp Pulse Resp BP Pulse Ox 01/04/19 06:19 105 H 12 110/59 L 93 L 01/04/19 06:00 98.2 F 98 H 15 119/78 98 01/04/19 04:00 98.7 F 107 H 16 111/78 97 Intake and Output (Last 8hrs): Intake & Output 01/03/19 01/04/19 01/04/19 22:59 06:59 14:59 Intake Total 1200 304 Output Total 200 550 Balance 1000 -246 Weight 93.4 kg Intake: IV 150 Intake, Piggyback 300 104 Oral 700 Free Water Flush 50 200 Output: Urine 200 550 Urine, Voided 200 550 Other: # Voids Urine, Voided 1 # Bowel Movements 0 - Physical Exam Head: Positive for: Atraumatic, Normocephalic Pupils: Positive for: PERRL Extroacular Muscles: Positive for: EOMI Respiratory/Chest: Positive for: Rhonchi, Other (rhonchi in the lower lobes, no crackeles or rales appreciated.On 2L NC). Negative for: Respiratory Distress, Accessory Muscle Use, Wheezes Cardiovascular: Positive for: Normal S1, S2, Irregular Rhythm, Tachycardic Abdomen: Positive for: Distention, Normal Bowel Sounds. Negative for: Tenderness, Peritoneal Signs Genitourinary Male: Positive for: Other (scrotal edema; improving) Upper Extremity: Positive for: Edema Lower Extremity: Positive for: Edema, Other (edema 1+ pitting up to the knees b/l ) Skin: Positive for: Rashes (tiny multiple dark spots in the body, looks like moles some with erythematous base), Other (multiple tattoes noted throughout the body) Psychiatric: Positive for: Alert. Negative for: Oriented x 3 - Medications Active Medications: Active Medications Generic Name Dose Route Start Last Admin Trade Name Freq PRN Reason Stop Dose Admin Acetaminophen 650 mg 12/16/18 07:14 12/24/18 20:36 Tylenol 325mg Tab PO 650 mg Q6 PRN Administration Pain, Mild (1-3) Acetaminophen 650 mg 12/31/18 21:10 12/31/18 21:23 Tylenol 325mg Tab PO 650 mg Q4 PRN Administration Fever >100.4 F Albuterol/Ipratropium 3 ml 12/30/18 16:00 01/03/19 19:09 Duoneb 3 Mg/0.5 Mg (3 Ml) Ud INH 3 ml RQID [facility] Administration Artificial Tears 2 drop 12/28/18 20:32 12/31/18 21:23 Artificial Tears OU 2 drop Q4 PRN Administration Dry eyes Atorvastatin Calcium 20 mg 01/01/19 09:00 01/03/19 09:05 Lipitor PO 20 mg DAILY [facility] Administration Diltiazem HCl 90 mg 01/02/19 10:00 01/04/19 03:56 Cardizem PO 90 mg Q6 [facility] Administration Docusate Sodium 100 mg 12/29/18 09:00 01/03/19 16:11 Colace Liquid PO 100 mg BID [facility] Administration Furosemide 40 mg 01/01/19 09:00 01/03/19 09:15 Lasix IV 40 mg DAILY [facility] Administration Meropenem 1 gm/ Sodium 100 mls @ 100 mls/hr 01/03/19 22:00 01/04/19 05:01 Chloride IVPB 100 mls/hr Q8@0600,1400,2200 [facility] Administration Protocol Ipratropium [place] 0.5 mg 01/01/19 14:00 01/04/19 01:43 Atrovent IH 0.5 mg RQ6 [facility] Administration Lactic Acid 1 applic 12/21/18 17:00 01/03/19 16:11 Lac-Hydrin 12% Lotion (225 G) TOP 1 applic BID [facility] Administration Lisinopril 2.5 mg 01/02/19 09:00 01/03/19 09:06 Zestril PO 2.5 mg DAILY [facility] Administration Metoprolol Tartrate 50 mg 01/02/19 21:00 01/03/19 20:39 Lopressor PO 50 mg Q12 [facility] Administration Pantoprazole Sodium 40 mg 01/01/19 08:30 01/03/19 20:40 Protonix Inj IVP 40 mg Q12H [facility] Administration Promethazine HCl/Dextromethorphan 10 ml 01/03/19 17:00 01/04/19 00:41 Phenergan Dm Syrup PO 10 ml Q8 [facility] Administration Tamsulosin HCl 0.4 mg 01/02/19 09:00 01/03/19 09:05 Flomax PO 0.4 mg DAILY [facility] Administration - Patient Studies Lab Studies: Lab Studies 01/04/19 01/04/19 01/03/19 Range/Units 05:01 05:01 07:30 WBC 6.0 (4.8-10.8) K/uL RBC 2.39 L (4.40-5.90) Mil/uL Hgb 9.3 L (12.0-18.0) g/dL Hct 26.3 L (35.0-51.0) % MCV 109.8 H D (80.0-94.0) fl MCH 38.9 H (27.0-31.0) pg MCHC 35.4 (33.0-37.0) g/dL RDW 14.9 H (11.5-14.5) % Plt Count 328 (130-400) K/uL MPV 8.2 (7.2-11.7) fl Neut % (Auto) 69.7 (50.0-75.0) % Lymph % (Auto) 15.8 L (20.0-40.0) % [place] % (Auto) 9.4 (0.0-10.0) % Eos % (Auto) 4.2 H (0.0-4.0) % Baso % (Auto) 0.9 (0.0-2.0) % Neut # (Auto) 4.1 (1.8-7.0) K/uL Lymph # (Auto) 0.9 L (1.0-4.3) K/uL [place] # (Auto) 0.6 (0.0-0.8) K/uL Eos # (Auto) 0.2 (0.0-0.7) K/uL Baso # (Auto) 0.1 (0.0-0.2) K/uL Sodium 138 137 (132-148) mmol/l Potassium 4.1 4.1 (3.6-5.0) MMOL/L Chloride 100 100 (98-107) mmol/L Carbon Dioxide 33 H 33 H (22-30) mmol/L Anion Gap 9 L 8 L (10-20) BUN 21 H 23 H (9-20) mg/dl Creatinine 0.8 0.7 L (0.8-1.5) mg/dl Est GFR ( Amer) > 60 > 60 Est GFR (Non-Af Amer) > 60 > 60 Random Glucose 92 92 (75-110) mg/dL Calcium 8.3 L 8.3 L (8.4-10.2) mg/dL Phosphorus 2.5 (2.5-4.5) mg/dl Magnesium 2.1 (1.6-2.3) MG/DL Total Bilirubin 0.7 0.6 (0.2-1.3) mg/dl AST 41 77 H D (17-59) U/L ALT 44 42 (21-72) U/L Alkaline Phosphatase 174 H 175 H D (38-126) U/L Total Protein 6.1 L 6.0 L (6.3-8.2) G/DL Albumin 2.9 L 2.9 L (3.5-5.0) g/dL Globulin 3.2 3.1 (2.2-3.9) gm/dL Albumin/Globulin Ratio 0.9 L 0.9 L (1.0-2.1) 01/03/19 Range/Units 07:30 WBC 6.6 (4.8-10.8) K/uL RBC 2.79 L (4.40-5.90) Mil/uL Hgb 9.4 L D (12.0-18.0) g/dL Hct 28.0 L (35.0-51.0) % MCV 100.5 H D (80.0-94.0) fl MCH 33.6 H (27.0-31.0) pg MCHC 33.4 (33.0-37.0) g/dL RDW 14.7 H (11.5-14.5) % Plt Count 308 (130-400) K/uL MPV (7.2-11.7) fl Neut % (Auto) (50.0-75.0) % Lymph % (Auto) (20.0-40.0) % [place] % (Auto) (0.0-10.0) % Eos % (Auto) (0.0-4.0) % Baso % (Auto) (0.0-2.0) % Neut # (Auto) (1.8-7.0) K/uL Lymph # (Auto) (1.0-4.3) K/uL [place] # (Auto) (0.0-0.8) K/uL Eos # (Auto) (0.0-0.7) K/uL Baso # (Auto) (0.0-0.2) K/uL Sodium (132-148) mmol/l Potassium (3.6-5.0) MMOL/L Chloride (98-107) mmol/L Carbon Dioxide (22-30) mmol/L Anion Gap (10-20) BUN (9-20) mg/dl Creatinine (0.8-1.5) mg/dl Est GFR ( Amer) Est GFR (Non-Af Amer) Random Glucose (75-110) mg/dL Calcium (8.4-10.2) mg/dL Phosphorus (2.5-4.5) mg/dl Magnesium (1.6-2.3) MG/DL Total Bilirubin (0.2-1.3) mg/dl AST (17-59) U/L ALT (21-72) U/L Alkaline Phosphatase (38-126) U/L Total Protein (6.3-8.2) G/DL Albumin (3.5-5.0) g/dL Globulin (2.2-3.9) gm/dL Albumin/Globulin Ratio (1.0-2.1) Laboratory Results - last 24 hr 01/03/19 01/03/19 01/04/19 07:30 07:30 05:01 WBC 6.6 6.0 RBC 2.79 L 2.39 L Hgb 9.4 L D 9.3 L Hct 28.0 L 26.3 L MCV 100.5 H D 109.8 H D MCH 33.6 H 38.9 H MCHC 33.4 35.4 RDW 14.7 H 14.9 H Plt Count 308 328 MPV 8.2 Neut % (Auto) 69.7 Lymph % (Auto) 15.8 L [place] % (Auto) 9.4 Eos % (Auto) 4.2 H Baso % (Auto) 0.9 Neut # (Auto) 4.1 Lymph # (Auto) 0.9 L [place] # (Auto) 0.6 Eos # (Auto) 0.2 Baso # (Auto) 0.1 Sodium 137 Potassium 4.1 Chloride 100 Carbon Dioxide 33 H Anion Gap 8 L BUN 23 H Creatinine 0.7 L Est GFR ( Amer) > 60 Est GFR (Non-Af Amer) > 60 Random Glucose 92 Calcium 8.3 L Phosphorus Magnesium Total Bilirubin 0.6 AST 77 H D ALT 42 Alkaline Phosphatase 175 H D Total Protein 6.0 L Albumin 2.9 L Globulin 3.1 Albumin/Globulin Ratio 0.9 L 01/04/19 05:01 WBC RBC Hgb Hct MCV MCH MCHC RDW Plt Count MPV Neut % (Auto) Lymph % (Auto) [place] % (Auto) Eos % (Auto) Baso % (Auto) Neut # (Auto) Lymph # (Auto) [place] # (Auto) Eos # (Auto) Baso # (Auto) Sodium 138 Potassium 4.1 Chloride 100 Carbon Dioxide 33 H Anion Gap 9 L BUN 21 H Creatinine 0.8 Est GFR ( Amer) > 60 Est GFR (Non-Af Amer) > 60 Random Glucose 92 Calcium 8.3 L Phosphorus 2.5 Magnesium 2.1 Total Bilirubin 0.7 AST 41 ALT 44 Alkaline Phosphatase 174 H Total Protein 6.1 L Albumin 2.9 L Globulin 3.2 Albumin/Globulin Ratio 0.9 L Radiology Impressions: Radiology Impressions Chest X-Ray 01/03/19 04:00 IMPRESSION: Stable infiltrate right lower lobe. New infiltrate left lower lobe. Fingerstick Blood Sugar Results: 122 Review of Systems - Cardiovascular Cardiovascular: absent: Chest Pain, Dyspnea, Palpitations - Respiratory Respiratory: Cough. absent: Dyspnea - Gastrointestinal Gastrointestinal: absent: Abdominal Pain - Genitourinary Genitourinary: absent: Difficulty Urinating, Dysuria Critical Care Progress Note - Nutrition Nutrition: Nutrition Category Date Time Status Dysphagia/Modified Consistency Diet [DIET] Diets 01/03/19 Dinner Active <MikefDavian M - Last Filed: 01/04/19 16:11> CCU Objective - Vital Signs / Intake & Output Vital Signs (Last 4 hours): Vital Signs Pulse Resp BP Pulse Ox 01/04/19 15:00 116 H 18 96/49 L 98 01/04/19 14:00 99 H 20 87/51 L 98 Intake and Output (Last 8hrs): Intake & Output 01/04/19 01/04/19 01/04/19 06:59 14:59 22:59 Intake Total 304 720 Output Total 550 1050 Balance -246 -330 Weight 205 lb 14.588 oz Intake: Intake, Piggyback 104 Oral 720 Free Water Flush 200 Output: Urine 550 1050 Urine, Voided 550 1050 Other: # Voids Urine, Voided 1 # Bowel Movements 0 - Medications Active Medications: Active Medications Generic Name Dose Route Start Last Admin Trade Name Freq PRN Reason Stop Dose Admin Acetaminophen 650 mg 12/16/18 07:14 12/24/18 20:36 Tylenol 325mg Tab PO 650 mg Q6 PRN Administration Pain, Mild (1-3) Acetaminophen 650 mg 12/31/18 21:10 12/31/18 21:23 Tylenol 325mg Tab PO 650 mg Q4 PRN Administration Fever >100.4 F Albuterol/Ipratropium 3 ml 12/30/18 16:00 01/04/19 15:45 Duoneb 3 Mg/0.5 Mg (3 Ml) Ud INH 3 ml RQID [facility] Administration Artificial Tears 2 drop 12/28/18 20:32 01/04/19 08:35 Artificial Tears OU 2 drop Q4 PRN Administration Dry eyes Atorvastatin Calcium 20 mg 01/01/19 09:00 01/04/19 08:34 Lipitor PO 20 mg DAILY [facility] Administration Diltiazem HCl 90 mg 01/02/19 10:00 01/04/19 09:35 Cardizem PO 90 mg Q6 [facility] Administration Docusate Sodium 100 mg 12/29/18 09:00 01/04/19 09:35 Colace Liquid PO 100 mg BID [facility] Administration Enoxaparin Sodium 90 mg 01/04/19 21:00 Lovenox SC Q12 [facility] Protocol Furosemide 40 mg 01/05/19 09:00 Lasix PO DAILY [facility] Meropenem 1 gm/ Sodium 100 mls @ 100 mls/hr 01/03/19 22:00 01/04/19 13:09 Chloride IVPB 100 mls/hr Q8@0600,1400,2200 [facility] Administration Protocol Ipratropium [place] 0.5 mg 01/01/19 14:00 01/04/19 07:58 Atrovent IH Not Given RQ6 [facility] Lactic Acid 1 applic 12/21/18 17:00 01/04/19 08:36 Lac-Hydrin 12% Lotion (225 G) TOP 1 applic BID [facility] Administration Metoprolol Tartrate 75 mg 01/04/19 21:00 Lopressor PO Q12 [facility] Pantoprazole Sodium 40 mg 01/01/19 08:30 01/04/19 08:32 Protonix Inj IVP 40 mg Q12H [facility] Administration Promethazine HCl/Dextromethorphan 10 ml 01/03/19 17:00 01/04/19 08:36 Phenergan Dm Syrup PO 10 ml Q8 [facility] Administration Tamsulosin HCl 0.4 mg 01/02/19 09:00 01/04/19 08:31 Flomax PO 0.4 mg DAILY [facility] Administration - Patient Studies Lab Studies: Lab Studies 01/04/19 01/04/19 Range/Units 05:01 05:01 WBC 6.0 (4.8-10.8) K/uL RBC 2.39 L (4.40-5.90) Mil/uL Hgb 9.3 L (12.0-18.0) g/dL Hct 26.3 L (35.0-51.0) % MCV 109.8 H D (80.0-94.0) fl MCH 38.9 H (27.0-31.0) pg MCHC 35.4 (33.0-37.0) g/dL RDW 14.9 H (11.5-14.5) % Plt Count 328 (130-400) K/uL MPV 8.2 (7.2-11.7) fl Neut % (Auto) 69.7 (50.0-75.0) % Lymph % (Auto) 15.8 L (20.0-40.0) % [place] % (Auto) 9.4 (0.0-10.0) % Eos % (Auto) 4.2 H (0.0-4.0) % Baso % (Auto) 0.9 (0.0-2.0) % Neut # (Auto) 4.1 (1.8-7.0) K/uL Lymph # (Auto) 0.9 L (1.0-4.3) K/uL [place] # (Auto) 0.6 (0.0-0.8) K/uL Eos # (Auto) 0.2 (0.0-0.7) K/uL Baso # (Auto) 0.1 (0.0-0.2) K/uL Sodium 138 (132-148) mmol/l Potassium 4.1 (3.6-5.0) MMOL/L Chloride 100 (98-107) mmol/L Carbon Dioxide 33 H (22-30) mmol/L Anion Gap 9 L (10-20) BUN 21 H (9-20) mg/dl Creatinine 0.8 (0.8-1.5) mg/dl Est GFR ( Amer) > 60 Est GFR (Non-Af Amer) > 60 Random Glucose 92 (75-110) mg/dL Calcium 8.3 L (8.4-10.2) mg/dL Phosphorus 2.5 (2.5-4.5) mg/dl Magnesium 2.1 (1.6-2.3) MG/DL Total Bilirubin 0.7 (0.2-1.3) mg/dl AST 41 (17-59) U/L ALT 44 (21-72) U/L Alkaline Phosphatase 174 H (38-126) U/L Total Protein 6.1 L (6.3-8.2) G/DL Albumin 2.9 L (3.5-5.0) g/dL Globulin 3.2 (2.2-3.9) gm/dL Albumin/Globulin Ratio 0.9 L (1.0-2.1) Laboratory Results - last 24 hr 01/04/19 01/04/19 05:01 05:01 WBC 6.0 RBC 2.39 L Hgb 9.3 L Hct 26.3 L MCV 109.8 H D MCH 38.9 H MCHC 35.4 RDW 14.9 H Plt Count 328 MPV 8.2 Neut % (Auto) 69.7 Lymph % (Auto) 15.8 L [place] % (Auto) 9.4 Eos % (Auto) 4.2 H Baso % (Auto) 0.9 Neut # (Auto) 4.1 Lymph # (Auto) 0.9 L [place] # (Auto) 0.6 Eos # (Auto) 0.2 Baso # (Auto) 0.1 Sodium 138 Potassium 4.1 Chloride 100 Carbon Dioxide 33 H Anion Gap 9 L BUN 21 H Creatinine 0.8 Est GFR ( Amer) > 60 Est GFR (Non-Af Amer) > 60 Random Glucose 92 Calcium 8.3 L Phosphorus 2.5 Magnesium 2.1 Total Bilirubin 0.7 AST 41 ALT 44 Alkaline Phosphatase 174 H Total Protein 6.1 L Albumin 2.9 L Globulin 3.2 Albumin/Globulin Ratio 0.9 L Critical Care Progress Note - Nutrition Nutrition: Nutrition Category Date Time Status Dysphagia/Modified Consistency Diet [DIET] Diets 01/03/19 Dinner Active Attending/Attestation - Attestation I have personally seen and examined this patient.: Yes I have fully participated in the care of the patient.: Yes I have reviewed all pertinent clinical information: Yes Notes (Text): 01/04/19 16:08 Today: Friday, January 04, 2019 The patient was Seen/interviewed and examined by me at the bedside during ICU round, Medical records reviewed and Management issues were discussed and formulated with the house staff. Events reviewed I have reviewed all the relevant clinical, laboratory, hemodynamic, radiographic data and medications Pain issues, skin care, head of the bed elevation, glycemic control were addressed. I concur with resident's assessment and plan of care as transcribed in Dr. Londono note. 73 years old male admitted to the intensive care unit for management of atrial fibrillation with RVR, currently on the Cardizem drip on p.o. Cardizem and Lopressor Heart rate still labile, and Lopressor dose was increased today He is comfortable, afebrile, not anxious Adequate saturation of 96-98% on nasal cannula Sepsis well controlled with intravenous antibiotic IV meropenem
[2019-01-04] MEDS: Albuterol-Ipratrop 3 mg / 0.5 (3 ml) UD INH SCH ×4 (07:57→19:03)
[2019-01-04] MEDS: Artificial Tears Opht Soln OU PRN ×2 (08:35→20:27)
--- NOTE | 2019-01-04 12:40 | CP.PCM.PN ---
Subjective - Date & Time of Evaluation Date of Evaluation: 01/04/19 Time of Evaluation: 10:50 - Subjective Subjective: Pulmonary consult. Pt awake, no c/o,, no SOB on O2 NC 2 L/M Objective - Vital Signs/Intake and Output Vital Signs (last 24 hours): Temp Pulse Resp BP Pulse Ox 97.6 F 93 H 23 98/56 L 96 01/04/19 12:00 01/04/19 12:00 01/04/19 12:00 01/04/19 12:00 01/04/19 12:00 Intake and Output: 01/04/19 01/04/19 06:59 18:59 Intake Total 604 480 Output Total 550 1050 Balance 54 -570 - Medications Medications: Current Medications Acetaminophen (Tylenol 325mg Tab) 650 mg PO Q6 PRN PRN Reason: Pain, Mild (1-3) Last Admin: 12/24/18 20:36 Dose: 650 mg Acetaminophen (Tylenol 325mg Tab) 650 mg PO Q4 PRN PRN Reason: Fever >100.4 F Last Admin: 12/31/18 21:23 Dose: 650 mg Albuterol/Ipratropium (Duoneb 3 Mg/0.5 Mg (3 Ml) Ud) 3 ml INH RQID [facility] Last Admin: 01/04/19 11:01 Dose: 3 ml Artificial Tears (Artificial Tears) 2 drop OU Q4 PRN PRN Reason: Dry eyes Last Admin: 01/04/19 08:35 Dose: 2 drop Atorvastatin Calcium (Lipitor) 20 mg PO DAILY [facility] Last Admin: 01/04/19 08:34 Dose: 20 mg Diltiazem HCl (Cardizem) 90 mg PO Q6 [facility] Last Admin: 01/04/19 09:35 Dose: 90 mg Docusate Sodium (Colace Liquid) 100 mg PO BID [facility] Last Admin: 01/04/19 09:35 Dose: 100 mg Enoxaparin Sodium (Lovenox) 90 mg SC Q12 [facility]; Protocol Furosemide (Lasix) 40 mg PO DAILY [facility] Meropenem 1 gm/ Sodium (Chloride) 100 mls @ 100 mls/hr IVPB Q8@0600,1400,2200 [facility]; Protocol Last Admin: 01/04/19 05:01 Dose: 100 mls/hr Ipratropium [place] (Atrovent) 0.5 mg IH RQ6 [facility] Last Admin: 01/04/19 07:58 Dose: Not Given Lactic Acid (Lac-Hydrin 12% Lotion (225 G)) 1 applic TOP BID [facility] Last Admin: 01/04/19 08:36 Dose: 1 applic Metoprolol Tartrate (Lopressor) 75 mg PO Q12 [facility] Pantoprazole Sodium (Protonix Inj) 40 mg IVP Q12H [facility] Last Admin: 01/04/19 08:32 Dose: 40 mg Promethazine HCl/Dextromethorphan (Phenergan Dm Syrup) 10 ml PO Q8 [facility] Last Admin: 01/04/19 08:36 Dose: 10 ml Tamsulosin HCl (Flomax) 0.4 mg PO DAILY [facility] Last Admin: 01/04/19 08:31 Dose: 0.4 mg - Labs Labs: 01/04/19 05:01 01/04/19 05:01 PT 14.3 Seconds (9.8-13.1) H 12/31/18 06:00 INR 1.3 12/31/18 06:00 APTT 36.7 Seconds (25.6-37.1) 12/31/18 06:00 - Constitutional Appears: No Acute Distress - Head Exam Head Exam: NORMAL INSPECTION - Eye Exam Eye Exam: PERRL - ENT Exam ENT Exam: Normal Exam - Neck Exam Neck Exam: Normal Inspection - Respiratory Exam Respiratory Exam: Decreased Breath Sounds (at bases), Rhonchi (scattered) - Cardiovascular Exam Cardiovascular Exam: Tachycardia, Irregular Rhythm, Murmur (systolic) - GI/Abdominal Exam GI & Abdominal Exam: Soft, Normal Bowel Sounds - Extremities Exam Additional comments: Trace edema L/E - Back Exam Back Exam: NORMAL INSPECTION - Neurological Exam Neurological Exam: Alert, Awake, CN II-XII Intact Additional comments: No focal motor/sensory deficit, generalized weakness - Psychiatric Exam Psychiatric exam: Anxious - Skin Skin Exam: Warm Assessment and Plan (1) Aspiration pneumonia of right lung Status: Acute (2) Multifocal pneumonia Status: Acute (3) S/P thoracentesis Status: Acute (4) Pleural effusion, bilateral Status: Acute (5) Respiratory failure Status: Resolved (6) COPD (chronic obstructive pulmonary disease) Status: Chronic (7) Atrial fibrillation with RVR Status: Acute (8) Anemia Status: Acute - Assessment and Plan (Free Text) Plan: Continue O2 NC 3 L/M, Duoneb, Phenergan DM and rest of Tx. Critical care time: 30 min.
--- NOTE | 2019-01-04 15:00 | CP.PCM.PN ---
Subjective - Date & Time of Evaluation Date of Evaluation: 12/31/18 Time of Evaluation: 15:30 - Subjective Subjective: Seen and examined at the bedside. No new complaints. Continues to be in A. fib with RVR, and on Cardizem drip Objective - Vital Signs/Intake and Output Vital Signs (last 24 hours): Temp Pulse Resp BP Pulse Ox 97.6 F 93 H 23 98/56 L 96 01/04/19 12:00 01/04/19 12:00 01/04/19 12:00 01/04/19 12:00 01/04/19 12:00 Intake and Output: 01/04/19 01/04/19 06:59 18:59 Intake Total 604 480 Output Total 550 1050 Balance 54 -570 - Medications Medications: Current Medications Acetaminophen (Tylenol 325mg Tab) 650 mg PO Q6 PRN PRN Reason: Pain, Mild (1-3) Last Admin: 12/24/18 20:36 Dose: 650 mg Acetaminophen (Tylenol 325mg Tab) 650 mg PO Q4 PRN PRN Reason: Fever >100.4 F Last Admin: 12/31/18 21:23 Dose: 650 mg Albuterol/Ipratropium (Duoneb 3 Mg/0.5 Mg (3 Ml) Ud) 3 ml INH RQID [facility] Last Admin: 01/04/19 11:01 Dose: 3 ml Artificial Tears (Artificial Tears) 2 drop OU Q4 PRN PRN Reason: Dry eyes Last Admin: 01/04/19 08:35 Dose: 2 drop Atorvastatin Calcium (Lipitor) 20 mg PO DAILY [facility] Last Admin: 01/04/19 08:34 Dose: 20 mg Diltiazem HCl (Cardizem) 90 mg PO Q6 [facility] Last Admin: 01/04/19 09:35 Dose: 90 mg Docusate Sodium (Colace Liquid) 100 mg PO BID [facility] Last Admin: 01/04/19 09:35 Dose: 100 mg Enoxaparin Sodium (Lovenox) 90 mg SC Q12 [facility]; Protocol Furosemide (Lasix) 40 mg PO DAILY [facility] Meropenem 1 gm/ Sodium (Chloride) 100 mls @ 100 mls/hr IVPB Q8@0600,1400,2200 [facility]; Protocol Last Admin: 01/04/19 13:09 Dose: 100 mls/hr Ipratropium [place] (Atrovent) 0.5 mg IH RQ6 [facility] Last Admin: 01/04/19 07:58 Dose: Not Given Lactic Acid (Lac-Hydrin 12% Lotion (225 G)) 1 applic TOP BID [facility] Last Admin: 01/04/19 08:36 Dose: 1 applic Metoprolol Tartrate (Lopressor) 75 mg PO Q12 [facility] Pantoprazole Sodium (Protonix Inj) 40 mg IVP Q12H [facility] Last Admin: 01/04/19 08:32 Dose: 40 mg Promethazine HCl/Dextromethorphan (Phenergan Dm Syrup) 10 ml PO Q8 [facility] Last Admin: 01/04/19 08:36 Dose: 10 ml Tamsulosin HCl (Flomax) 0.4 mg PO DAILY [facility] Last Admin: 01/04/19 08:31 Dose: 0.4 mg - Labs Labs: 01/04/19 05:01 01/04/19 05:01 PT 14.3 Seconds (9.8-13.1) H 12/31/18 06:00 INR 1.3 12/31/18 06:00 APTT 36.7 Seconds (25.6-37.1) 12/31/18 06:00 Assessment and Plan (1) Aspiration pneumonia of right lung Status: Acute (2) Atrial fibrillation with RVR Status: Acute (3) Multifocal pneumonia Status: Acute (4) Pleural effusion, bilateral Status: Acute (5) CHF (congestive heart failure) Status: Acute (6) Hypertension Status: Chronic (7) Acute respiratory failure with hypoxia and hypercapnia Status: Acute - Assessment and Plan (Free Text) Plan: Continue current care as per marble mechanic helper recommendation
--- NOTE | 2019-01-04 15:02 | CP.PCM.PN ---
Subjective - Date & Time of Evaluation Date of Evaluation: 12/31/18 Time of Evaluation: 19:20 - Subjective Subjective: Seen and examined at the bedside. No new complaints. Continues to be in A. fib with RVR, and on Cardizem drip Objective - Vital Signs/Intake and Output Vital Signs (last 24 hours): Temp Pulse Resp BP Pulse Ox 97.6 F 93 H 23 98/56 L 96 01/04/19 12:00 01/04/19 12:00 01/04/19 12:00 01/04/19 12:00 01/04/19 12:00 Intake and Output: 01/04/19 01/04/19 06:59 18:59 Intake Total 604 480 Output Total 550 1050 Balance 54 -570 - Medications Medications: Current Medications Acetaminophen (Tylenol 325mg Tab) 650 mg PO Q6 PRN PRN Reason: Pain, Mild (1-3) Last Admin: 12/24/18 20:36 Dose: 650 mg Acetaminophen (Tylenol 325mg Tab) 650 mg PO Q4 PRN PRN Reason: Fever >100.4 F Last Admin: 12/31/18 21:23 Dose: 650 mg Albuterol/Ipratropium (Duoneb 3 Mg/0.5 Mg (3 Ml) Ud) 3 ml INH RQID [facility] Last Admin: 01/04/19 11:01 Dose: 3 ml Artificial Tears (Artificial Tears) 2 drop OU Q4 PRN PRN Reason: Dry eyes Last Admin: 01/04/19 08:35 Dose: 2 drop Atorvastatin Calcium (Lipitor) 20 mg PO DAILY [facility] Last Admin: 01/04/19 08:34 Dose: 20 mg Diltiazem HCl (Cardizem) 90 mg PO Q6 [facility] Last Admin: 01/04/19 09:35 Dose: 90 mg Docusate Sodium (Colace Liquid) 100 mg PO BID [facility] Last Admin: 01/04/19 09:35 Dose: 100 mg Enoxaparin Sodium (Lovenox) 90 mg SC Q12 [facility]; Protocol Furosemide (Lasix) 40 mg PO DAILY [facility] Meropenem 1 gm/ Sodium (Chloride) 100 mls @ 100 mls/hr IVPB Q8@0600,1400,2200 [facility]; Protocol Last Admin: 01/04/19 13:09 Dose: 100 mls/hr Ipratropium [place] (Atrovent) 0.5 mg IH RQ6 [facility] Last Admin: 01/04/19 07:58 Dose: Not Given Lactic Acid (Lac-Hydrin 12% Lotion (225 G)) 1 applic TOP BID [facility] Last Admin: 01/04/19 08:36 Dose: 1 applic Metoprolol Tartrate (Lopressor) 75 mg PO Q12 [facility] Pantoprazole Sodium (Protonix Inj) 40 mg IVP Q12H [facility] Last Admin: 01/04/19 08:32 Dose: 40 mg Promethazine HCl/Dextromethorphan (Phenergan Dm Syrup) 10 ml PO Q8 [facility] Last Admin: 01/04/19 08:36 Dose: 10 ml Tamsulosin HCl (Flomax) 0.4 mg PO DAILY [facility] Last Admin: 01/04/19 08:31 Dose: 0.4 mg - Labs Labs: 01/04/19 05:01 01/04/19 05:01 PT 14.3 Seconds (9.8-13.1) H 12/31/18 06:00 INR 1.3 12/31/18 06:00 APTT 36.7 Seconds (25.6-37.1) 12/31/18 06:00 Assessment and Plan (1) Aspiration pneumonia of right lung Status: Acute (2) Atrial fibrillation with RVR Status: Acute (3) Multifocal pneumonia Status: Acute (4) Pleural effusion, bilateral Status: Acute (5) CHF (congestive heart failure) Status: Acute (6) Hypertension Status: Chronic (7) Acute respiratory failure with hypoxia and hypercapnia Status: Acute - Assessment and Plan (Free Text) Plan: Patient improving Continue current care
--- NOTE | 2019-01-04 15:04 | CP.PCM.PN ---
Subjective - Date & Time of Evaluation Date of Evaluation: 01/01/19 Time of Evaluation: 08:05 - Subjective Subjective: Seen and examined at the bedside. No new complaints Objective - Vital Signs/Intake and Output Vital Signs (last 24 hours): Temp Pulse Resp BP Pulse Ox 97.6 F 93 H 23 98/56 L 96 01/04/19 12:00 01/04/19 12:00 01/04/19 12:00 01/04/19 12:00 01/04/19 12:00 Intake and Output: 01/04/19 01/04/19 06:59 18:59 Intake Total 604 480 Output Total 550 1050 Balance 54 -570 - Medications Medications: Current Medications Acetaminophen (Tylenol 325mg Tab) 650 mg PO Q6 PRN PRN Reason: Pain, Mild (1-3) Last Admin: 12/24/18 20:36 Dose: 650 mg Acetaminophen (Tylenol 325mg Tab) 650 mg PO Q4 PRN PRN Reason: Fever >100.4 F Last Admin: 12/31/18 21:23 Dose: 650 mg Albuterol/Ipratropium (Duoneb 3 Mg/0.5 Mg (3 Ml) Ud) 3 ml INH RQID [facility] Last Admin: 01/04/19 11:01 Dose: 3 ml Artificial Tears (Artificial Tears) 2 drop OU Q4 PRN PRN Reason: Dry eyes Last Admin: 01/04/19 08:35 Dose: 2 drop Atorvastatin Calcium (Lipitor) 20 mg PO DAILY [facility] Last Admin: 01/04/19 08:34 Dose: 20 mg Diltiazem HCl (Cardizem) 90 mg PO Q6 [facility] Last Admin: 01/04/19 09:35 Dose: 90 mg Docusate Sodium (Colace Liquid) 100 mg PO BID [facility] Last Admin: 01/04/19 09:35 Dose: 100 mg Enoxaparin Sodium (Lovenox) 90 mg SC Q12 [facility]; Protocol Furosemide (Lasix) 40 mg PO DAILY [facility] Meropenem 1 gm/ Sodium (Chloride) 100 mls @ 100 mls/hr IVPB Q8@0600,1400,2200 [facility]; Protocol Last Admin: 01/04/19 13:09 Dose: 100 mls/hr Ipratropium [place] (Atrovent) 0.5 mg IH RQ6 [facility] Last Admin: 01/04/19 07:58 Dose: Not Given Lactic Acid (Lac-Hydrin 12% Lotion (225 G)) 1 applic TOP BID [facility] Last Admin: 01/04/19 08:36 Dose: 1 applic Metoprolol Tartrate (Lopressor) 75 mg PO Q12 [facility] Pantoprazole Sodium (Protonix Inj) 40 mg IVP Q12H [facility] Last Admin: 01/04/19 08:32 Dose: 40 mg Promethazine HCl/Dextromethorphan (Phenergan Dm Syrup) 10 ml PO Q8 [facility] Last Admin: 01/04/19 08:36 Dose: 10 ml Tamsulosin HCl (Flomax) 0.4 mg PO DAILY [facility] Last Admin: 01/04/19 08:31 Dose: 0.4 mg - Labs Labs: 01/04/19 05:01 01/04/19 05:01 PT 14.3 Seconds (9.8-13.1) H 12/31/18 06:00 INR 1.3 12/31/18 06:00 APTT 36.7 Seconds (25.6-37.1) 12/31/18 06:00 Assessment and Plan (1) Aspiration pneumonia of right lung Status: Acute (2) Atrial fibrillation with RVR Status: Acute (3) Multifocal pneumonia Status: Acute (4) Pleural effusion, bilateral Status: Acute (5) CHF (congestive heart failure) Status: Acute (6) Hypertension Status: Chronic (7) Acute respiratory failure with hypoxia and hypercapnia Status: Acute - Assessment and Plan (Free Text) Plan: Continue current care
--- NOTE | 2019-01-04 15:06 | CP.PCM.PN ---
Subjective - Date & Time of Evaluation Date of Evaluation: 01/02/19 Time of Evaluation: 17:15 - Subjective Subjective: Seen and examined at the bedside. No new complaints. Continues to be in A. fib with RVR, and on Cardizem drip. Discussed with fruit grader operator and patient both POC. Objective - Vital Signs/Intake and Output Vital Signs (last 24 hours): Temp Pulse Resp BP Pulse Ox 97.6 F 93 H 23 98/56 L 96 01/04/19 12:00 01/04/19 12:00 01/04/19 12:00 01/04/19 12:00 01/04/19 12:00 Intake and Output: 01/04/19 01/04/19 06:59 18:59 Intake Total 604 480 Output Total 550 1050 Balance 54 -570 - Medications Medications: Current Medications Acetaminophen (Tylenol 325mg Tab) 650 mg PO Q6 PRN PRN Reason: Pain, Mild (1-3) Last Admin: 12/24/18 20:36 Dose: 650 mg Acetaminophen (Tylenol 325mg Tab) 650 mg PO Q4 PRN PRN Reason: Fever >100.4 F Last Admin: 12/31/18 21:23 Dose: 650 mg Albuterol/Ipratropium (Duoneb 3 Mg/0.5 Mg (3 Ml) Ud) 3 ml INH RQID [facility] Last Admin: 01/04/19 11:01 Dose: 3 ml Artificial Tears (Artificial Tears) 2 drop OU Q4 PRN PRN Reason: Dry eyes Last Admin: 01/04/19 08:35 Dose: 2 drop Atorvastatin Calcium (Lipitor) 20 mg PO DAILY [facility] Last Admin: 01/04/19 08:34 Dose: 20 mg Diltiazem HCl (Cardizem) 90 mg PO Q6 [facility] Last Admin: 01/04/19 09:35 Dose: 90 mg Docusate Sodium (Colace Liquid) 100 mg PO BID [facility] Last Admin: 01/04/19 09:35 Dose: 100 mg Enoxaparin Sodium (Lovenox) 90 mg SC Q12 [facility]; Protocol Furosemide (Lasix) 40 mg PO DAILY [facility] Meropenem 1 gm/ Sodium (Chloride) 100 mls @ 100 mls/hr IVPB Q8@0600,1400,2200 [facility]; Protocol Last Admin: 01/04/19 13:09 Dose: 100 mls/hr Ipratropium [place] (Atrovent) 0.5 mg IH RQ6 [facility] Last Admin: 01/04/19 07:58 Dose: Not Given Lactic Acid (Lac-Hydrin 12% Lotion (225 G)) 1 applic TOP BID [facility] Last Admin: 01/04/19 08:36 Dose: 1 applic Metoprolol Tartrate (Lopressor) 75 mg PO Q12 [facility] Pantoprazole Sodium (Protonix Inj) 40 mg IVP Q12H [facility] Last Admin: 01/04/19 08:32 Dose: 40 mg Promethazine HCl/Dextromethorphan (Phenergan Dm Syrup) 10 ml PO Q8 [facility] Last Admin: 01/04/19 08:36 Dose: 10 ml Tamsulosin HCl (Flomax) 0.4 mg PO DAILY [facility] Last Admin: 01/04/19 08:31 Dose: 0.4 mg - Labs Labs: 01/04/19 05:01 01/04/19 05:01 PT 14.3 Seconds (9.8-13.1) H 12/31/18 06:00 INR 1.3 12/31/18 06:00 APTT 36.7 Seconds (25.6-37.1) 12/31/18 06:00 Assessment and Plan (1) Aspiration pneumonia of right lung Status: Acute (2) Atrial fibrillation with RVR Status: Acute (3) Multifocal pneumonia Status: Acute (4) Pleural effusion, bilateral Status: Acute (5) CHF (congestive heart failure) Status: Acute (6) Hypertension Status: Chronic (7) Acute respiratory failure with hypoxia and hypercapnia Status: Acute - Assessment and Plan (Free Text) Assessment: Patient improving Plan: Continue current care as per fruit grader operator recommendation
[2019-01-04] MEDS: Enoxaparin 100 mg Syringe SC SCH (20:28)
[2019-01-05] MEDS: Promethazine DM 12.5 mg-30 mg/10 ml Syrup PO SCH ×3 (01:00→16:07)
[2019-01-05] MEDS: Ipratropium 0.02% Inhal Soln (0.5 mg/2.5 ml) UD IH SCH ×2 (01:06→08:00)
[2019-01-05 04:45] LABS: BASO % 0.8 % (0.0-2.0); EOS # 0.2 K/uL (0.0-0.7); EOS % 3.8 % (0.0-4.0); LYMPH # 0.7 K/uL (1.0-4.3); LYMPH % 11.9 % (20.0-40.0); MEAN CELL VOLUME 100.6 fl (80.0-94.0); MEAN CORPUSCULAR HEMOGLOBIN 33.5 pg (27.0-31.0); MEAN CORPUSCULAR HGB CONC 33.3 g/dL (33.0-37.0); MEAN PLATELET VOLUME 7.7 fl (7.2-11.7); MONO # 0.5 K/uL (0.0-0.8); MONO % 8.7 % (0.0-10.0); NEUT # 4.7 K/uL (1.8-7.0); NEUT % 74.8 % (50.0-75.0); NRBC % 0.1 % (0.0-0.0); RBC 2.69 Mil/uL (4.40-5.90); WHITE BLOOD COUNT 6.3 K/uL (4.8-10.8)
[2019-01-05 04:53] LABS: BLOOD UREA NITROGEN 23 mg/dl (9-20); CALCIUM 8.1 mg/dL (8.4-10.2); GFR NON-AFRICAN AMERICAN > 60
[2019-01-05] MEDS: Meropenem 1 GM in Sodium Chloride 0.9% 100 ML IVPB SCH ×2 (05:46→13:27)
[2019-01-05] MEDS: Albuterol-Ipratrop 3 mg / 0.5 (3 ml) UD INH SCH ×4 (07:40→19:14)
--- NOTE | 2019-01-05 07:47 | CP.CCUPN ---
<aCte Londono - Last Filed: 01/05/19 10:02> CCU Subjective - Physician Review Subjective (Free Text): No acute overnight events. Doing well this AM, denies dyspnea, chest pain or palpitations. Cough improved from previously On NC, 2L saturating 97-100%, HR while in room ranges from 120's-130's, up to 150's on monitor Not as edematous as previously PICC line present on RUE Good urine output, labs reviewed Assessment/Plan: 1. A Fib, acute on chronic -uncontrolled -cardio on board -EKG no acute ST or T wave changes -Echo EF 35-40% -ext US on admission: no DVTs -c/w Cardizem 90mg Q6 and Metropolol 50 Q12 -will increasing Metropolol to 100mg BID -c/w Lovenox 90 SC 2. Pneumonia -CXR 01/03 b/l infiltrate noted -procalcitonin low -ID on board on Jacky, D13/14 3. Acute renal failure -improving, good output -c/w flomax 4. Pleural effusion, resolved -resolved, not seen on CXR 01/03 -s/p thoracentesis on 12/31, transudative fluid 5. Acute respiratory failure, resolved -likely 2/2 to pneumonia, pleural effusion -successfully extubated -duonab inh treatments 6. Altered mental status, resolved -likely 2/2 to metabolic encephalopathy -CT head no acute pathology 7. Anasarca -improving -likely 2/2 to fluid overload and hypoalbuminia -tolerating diuresis, c/w IV lasix -cont to monitor urine output 8. Anemia, acute -macrocytic anemia -likely 2/2 to bleeding from femoral line site -h/h stable at this time -blood work for folate and b12 9. Skin moles -black moles noted in skin (largest approx 0.5cm) -consider skin biopsy 10. Hematuria, resolved -likely 2/2 to trauma while rowell cath inserted -rowell fl'ed 11. Diet -swallow eval recs appreciated, pureed diet with honey thick liquids -video swallow eval ordered 12. DVT prolx -Lovenox SC CCU Objective - Vital Signs / Intake & Output Vital Signs (Last 4 hours): Vital Signs Temp Pulse Resp BP Pulse Ox 01/05/19 04:00 98.8 F 93 H 17 132/80 95 Intake and Output (Last 8hrs): Intake & Output 01/04/19 01/05/19 01/05/19 22:59 06:59 14:59 Intake Total 510 100 Output Total 400 Balance 110 100 Intake: IV 0 Intake, Piggyback 100 100 Oral 410 Output: Urine 400 Urine, Voided 400 Other: # Bowel Movements 1 - Physical Exam Head: Positive for: Atraumatic, Normocephalic Pupils: Positive for: PERRL Extroacular Muscles: Positive for: EOMI Mouth: Positive for: Other (nasal canula on ) Respiratory/Chest: Positive for: Rhonchi, Other (rhonchi in the lower lobes, no crackeles or rales appreciated). Negative for: Respiratory Distress, Accessory Muscle Use, Wheezes Cardiovascular: Positive for: Normal S1, S2, Irregular Rhythm, Tachycardic Abdomen: Positive for: Distention, Normal Bowel Sounds. Negative for: Tenderness, Peritoneal Signs Genitourinary Male: Positive for: Other (scrotal edema; improving) Upper Extremity: Positive for: Edema Lower Extremity: Positive for: Edema, Other (edema 1+ pitting up to the knees b/l ) Skin: Positive for: Rashes (tiny multiple dark spots in the body, looks like moles some with erythematous base), Other (multiple tattoes noted throughout the body) Psychiatric: Positive for: Alert. Negative for: Oriented x 3 - Medications Active Medications: Active Medications Generic Name Dose Route Start Last Admin Trade Name Freq PRN Reason Stop Dose Admin Acetaminophen 650 mg 12/16/18 07:14 12/24/18 20:36 Tylenol 325mg Tab PO 650 mg Q6 PRN Administration Pain, Mild (1-3) Acetaminophen 650 mg 12/31/18 21:10 12/31/18 21:23 Tylenol 325mg Tab PO 650 mg Q4 PRN Administration Fever >100.4 F Albuterol/Ipratropium 3 ml 12/30/18 16:00 01/05/19 07:40 Duoneb 3 Mg/0.5 Mg (3 Ml) Ud INH 3 ml RQID [facility] Administration Artificial Tears 2 drop 12/28/18 20:32 01/04/19 20:27 Artificial Tears OU 2 drop Q4 PRN Administration Dry eyes Atorvastatin Calcium 20 mg 01/01/19 09:00 01/04/19 08:34 Lipitor PO 20 mg DAILY [facility] Administration Diltiazem HCl 90 mg 01/02/19 10:00 01/05/19 04:04 Cardizem PO 90 mg Q6 [facility] Administration Docusate Sodium 100 mg 12/29/18 09:00 01/04/19 16:32 Colace Liquid PO Not Given BID [facility] Enoxaparin Sodium 90 mg 01/04/19 21:00 01/04/19 20:28 Lovenox SC 90 mg Q12 [facility] Administration Protocol Furosemide 40 mg 01/05/19 09:00 Lasix PO DAILY [facility] Meropenem 1 gm/ Sodium 100 mls @ 100 mls/hr 01/03/19 22:00 01/05/19 05:46 Chloride IVPB 100 mls/hr Q8@0600,1400,2200 [facility] Administration Protocol Ipratropium [place] 0.5 mg 01/01/19 14:00 01/05/19 01:06 Atrovent IH 0.5 mg RQ6 [facility] Administration Lactic Acid 1 applic 12/21/18 17:00 01/04/19 16:32 Lac-Hydrin 12% Lotion (225 G) TOP 1 applic BID [facility] Administration Metoprolol Tartrate 75 mg 01/04/19 21:00 01/04/19 20:32 Lopressor PO 75 mg Q12 [facility] Administration Pantoprazole Sodium 40 mg 01/01/19 08:30 01/04/19 20:29 Protonix Inj IVP 40 mg Q12H [facility] Administration Promethazine HCl/Dextromethorphan 10 ml 01/03/19 17:00 01/05/19 01:00 Phenergan Dm Syrup PO Not Given Q8 [facility] Tamsulosin HCl 0.4 mg 01/02/19 09:00 01/04/19 08:31 Flomax PO 0.4 mg DAILY [facility] Administration - Patient Studies Lab Studies: Lab Studies 01/05/19 01/05/19 01/04/19 Range/Units 04:20 04:20 10:10 WBC 6.3 (4.8-10.8) K/uL RBC 2.69 L (4.40-5.90) Mil/uL Hgb 9.0 L (12.0-18.0) g/dL Hct 27.1 L (35.0-51.0) % MCV 100.6 H D (80.0-94.0) fl MCH 33.5 H (27.0-31.0) pg MCHC 33.3 (33.0-37.0) g/dL RDW 15.0 H (11.5-14.5) % Plt Count 305 (130-400) K/uL MPV 7.7 (7.2-11.7) fl Neut % (Auto) 74.8 (50.0-75.0) % Lymph % (Auto) 11.9 L (20.0-40.0) % Giles % (Auto) 8.7 (0.0-10.0) % Eos % (Auto) 3.8 (0.0-4.0) % Baso % (Auto) 0.8 (0.0-2.0) % Neut # (Auto) 4.7 (1.8-7.0) K/uL Lymph # (Auto) 0.7 L (1.0-4.3) K/uL Giles # (Auto) 0.5 (0.0-0.8) K/uL Eos # (Auto) 0.2 (0.0-0.7) K/uL Baso # (Auto) 0.0 (0.0-0.2) K/uL Sodium 137 (132-148) mmol/l Potassium 4.3 (3.6-5.0) MMOL/L Chloride 102 (98-107) mmol/L Carbon Dioxide 32 H (22-30) mmol/L Anion Gap 7 L (10-20) BUN 23 H (9-20) mg/dl Creatinine 0.9 (0.8-1.5) mg/dl Est GFR ( Amer) > 60 Est GFR (Non-Af Amer) > 60 Random Glucose 96 (75-110) mg/dL Calcium 8.1 L (8.4-10.2) mg/dL Procalcitonin 0.05 L (0.19-0.49) NG/ML Laboratory Results - last 24 hr 01/04/19 01/05/19 01/05/19 10:10 04:20 04:20 WBC 6.3 RBC 2.69 L Hgb 9.0 L Hct 27.1 L MCV 100.6 H D MCH 33.5 H MCHC 33.3 RDW 15.0 H Plt Count 305 MPV 7.7 Neut % (Auto) 74.8 Lymph % (Auto) 11.9 L Giles % (Auto) 8.7 Eos % (Auto) 3.8 Baso % (Auto) 0.8 Neut # (Auto) 4.7 Lymph # (Auto) 0.7 L Giles # (Auto) 0.5 Eos # (Auto) 0.2 Baso # (Auto) 0.0 Sodium 137 Potassium 4.3 Chloride 102 Carbon Dioxide 32 H Anion Gap 7 L BUN 23 H Creatinine 0.9 Est GFR ( Amer) > 60 Est GFR (Non-Af Amer) > 60 Random Glucose 96 Calcium 8.1 L Procalcitonin 0.05 L Fingerstick Blood Sugar Results: 122 Review of Systems - Cardiovascular Cardiovascular: absent: Chest Pain, Dyspnea - Respiratory Respiratory: Cough. absent: Dyspnea - Gastrointestinal Gastrointestinal: absent: Abdominal Pain - Genitourinary Genitourinary: absent: Dysuria Critical Care Progress Note - Nutrition Nutrition: Nutrition Category Date Time Status Dysphagia/Modified Consistency Diet [DIET] Diets 01/03/19 Dinner Active <Main Roldan - Last Filed: 01/05/19 20:29> Assessment/Plan - Assessment and Plan (Free Text) Plan: Attestation: Patient seen and examined at the bedside with Resident Dr. Leon Londono; and I agree with her outline of plans and management documented above as discussed on AM rounds; reflecting my review of all applicable clinical data, and participation in the care of the patient throughout the day in ICU; today, January 05, 2019.
[2019-01-05] MEDS: Enoxaparin 100 mg Syringe SC SCH ×2 (08:51→21:39)
--- NOTE | 2019-01-05 11:16 | CP.PCM.PN ---
Subjective - Date & Time of Evaluation Date of Evaluation: 01/05/19 Time of Evaluation: 11:16 - Subjective Subjective: Id Note- Patient seen and examined today in ICU. patient awake and alert. no new events overnight. Objective - Vital Signs/Intake and Output Vital Signs (last 24 hours): Temp Pulse Resp BP Pulse Ox 97.6 F 92 H 16 114/65 100 01/05/19 08:00 01/05/19 10:59 01/05/19 10:59 01/05/19 10:59 01/05/19 10:59 Intake and Output: 01/05/19 01/05/19 06:59 18:59 Intake Total 250 360 Balance 250 360 - Medications Medications: Current Medications Acetaminophen (Tylenol 325mg Tab) 650 mg PO Q6 PRN PRN Reason: Pain, Mild (1-3) Last Admin: 12/24/18 20:36 Dose: 650 mg Acetaminophen (Tylenol 325mg Tab) 650 mg PO Q4 PRN PRN Reason: Fever >100.4 F Last Admin: 12/31/18 21:23 Dose: 650 mg Albuterol/Ipratropium (Duoneb 3 Mg/0.5 Mg (3 Ml) Ud) 3 ml INH RQID [facility] Last Admin: 01/05/19 07:40 Dose: 3 ml Artificial Tears (Artificial Tears) 2 drop OU Q4 PRN PRN Reason: Dry eyes Last Admin: 01/04/19 20:27 Dose: 2 drop Atorvastatin Calcium (Lipitor) 20 mg PO DAILY [facility] Last Admin: 01/05/19 08:53 Dose: 20 mg Diltiazem HCl (Cardizem) 90 mg PO Q6 [facility] Last Admin: 01/05/19 09:38 Dose: 90 mg Docusate Sodium (Colace Liquid) 100 mg PO BID [facility] Last Admin: 01/05/19 09:01 Dose: Not Given Enoxaparin Sodium (Lovenox) 90 mg SC Q12 [facility]; Protocol Last Admin: 01/05/19 08:51 Dose: 90 mg Furosemide (Lasix) 40 mg PO DAILY [facility] Last Admin: 01/05/19 08:52 Dose: 40 mg Meropenem 1 gm/ Sodium (Chloride) 100 mls @ 100 mls/hr IVPB Q8@0600,1400,2200 [facility]; Protocol Last Admin: 01/05/19 05:46 Dose: 100 mls/hr Lactic Acid (Lac-Hydrin 12% Lotion (225 G)) 1 applic TOP BID [facility] Last Admin: 01/05/19 08:50 Dose: 1 applic Metoprolol Tartrate (Lopressor) 100 mg PO Q12 [facility] Pantoprazole Sodium (Protonix Inj) 40 mg IVP Q12H [facility] Last Admin: 01/05/19 08:53 Dose: 40 mg Promethazine HCl/Dextromethorphan (Phenergan Dm Syrup) 10 ml PO Q8 [facility] Last Admin: 01/05/19 08:54 Dose: 10 ml Tamsulosin HCl (Flomax) 0.4 mg PO DAILY [facility] Last Admin: 01/05/19 08:53 Dose: 0.4 mg - Labs Labs: - Additional Findings Additional findings: - Constitutional Appears: No Acute Distress - Head Exam Head Exam: ATRAUMATIC - Eye Exam Eye Exam: EOMI - Neck Exam Neck Exam: Full ROM - Respiratory Exam Respiratory Exam: NORMAL BREATHING PATTERN Additional comments: better aeration b/l no wheezing - Cardiovascular Exam Cardiovascular Exam: RRR, +S1, +S2 - GI/Abdominal Exam GI & Abdominal Exam: Soft, Normal Bowel Sounds Additional comments: NT, ND - Extremities Exam Extremities Exam: Normal Inspection - Neurological Exam Neurological Exam: Alert, Awake, Oriented x 3 Laboratory Results - last 72 hr 01/03/19 01/03/19 01/04/19 07:30 07:30 05:01 WBC 6.6 6.0 RBC 2.79 L 2.39 L Hgb 9.4 L D 9.3 L Hct 28.0 L 26.3 L MCV 100.5 H D 109.8 H D MCH 33.6 H 38.9 H MCHC 33.4 35.4 RDW 14.7 H 14.9 H Plt Count 308 328 MPV 8.2 Neut % (Auto) 69.7 Lymph % (Auto) 15.8 L [place] % (Auto) 9.4 Eos % (Auto) 4.2 H Baso % (Auto) 0.9 Neut # (Auto) 4.1 Lymph # (Auto) 0.9 L [place] # (Auto) 0.6 Eos # (Auto) 0.2 Baso # (Auto) 0.1 Sodium 137 Potassium 4.1 Chloride 100 Carbon Dioxide 33 H Anion Gap 8 L BUN 23 H Creatinine 0.7 L Est GFR ( Amer) > 60 Est GFR (Non-Af Amer) > 60 Random Glucose 92 Calcium 8.3 L Phosphorus Magnesium Total Bilirubin 0.6 AST 77 H D ALT 42 Alkaline Phosphatase 175 H D Total Protein 6.0 L Albumin 2.9 L Globulin 3.1 Albumin/Globulin Ratio 0.9 L Procalcitonin 01/04/19 01/04/19 01/05/19 05:01 10:10 04:20 WBC 6.3 RBC 2.69 L Hgb 9.0 L Hct 27.1 L MCV 100.6 H D MCH 33.5 H MCHC 33.3 RDW 15.0 H Plt Count 305 MPV 7.7 Neut % (Auto) 74.8 Lymph % (Auto) 11.9 L [place] % (Auto) 8.7 Eos % (Auto) 3.8 Baso % (Auto) 0.8 Neut # (Auto) 4.7 Lymph # (Auto) 0.7 L [place] # (Auto) 0.5 Eos # (Auto) 0.2 Baso # (Auto) 0.0 Sodium 138 Potassium 4.1 Chloride 100 Carbon Dioxide 33 H Anion Gap 9 L BUN 21 H Creatinine 0.8 Est GFR ( Amer) > 60 Est GFR (Non-Af Amer) > 60 Random Glucose 92 Calcium 8.3 L Phosphorus 2.5 Magnesium 2.1 Total Bilirubin 0.7 AST 41 ALT 44 Alkaline Phosphatase 174 H Total Protein 6.1 L Albumin 2.9 L Globulin 3.2 Albumin/Globulin Ratio 0.9 L Procalcitonin 0.05 L 01/05/19 04:20 WBC RBC Hgb Hct MCV MCH MCHC RDW Plt Count MPV Neut % (Auto) Lymph % (Auto) [place] % (Auto) Eos % (Auto) Baso % (Auto) Neut # (Auto) Lymph # (Auto) [place] # (Auto) Eos # (Auto) Baso # (Auto) Sodium 137 Potassium 4.3 Chloride 102 Carbon Dioxide 32 H Anion Gap 7 L BUN 23 H Creatinine 0.9 Est GFR ( Amer) > 60 Est GFR (Non-Af Amer) > 60 Random Glucose 96 Calcium 8.1 L Phosphorus Magnesium Total Bilirubin AST ALT Alkaline Phosphatase Total Protein Albumin Globulin Albumin/Globulin Ratio Procalcitonin Microbiology 12/26/18 09:00 Trachasp Gram Stain - Final 12/26/18 09:00 Trachasp Sputum Culture - Final No growth. 12/22/18 16:49 Blood-Venous Blood Culture - Final NO GROWTH AFTER 5 DAYS 12/22/18 16:49 Blood-Venous Gram Stain - Final TEST NOT PERFORMED 12/21/18 17:25 Blood-Venous Blood Culture - Final NO GROWTH AFTER 5 DAYS 12/21/18 17:25 Blood-Venous Gram Stain - Final TEST NOT PERFORMED 12/21/18 17:20 Blood-Venous Blood Culture - Final NO GROWTH AFTER 5 DAYS 12/21/18 17:20 Blood-Venous Gram Stain - Final TEST NOT PERFORMED 12/23/18 17:10 Trachasp Gram Stain - Final 12/23/18 17:10 Trachasp Sputum Culture - Final No growth. 12/22/18 07:32 Urine,Clean Catch Urine Culture - Final No Growth (<1,000 CFU/ML) 12/23/18 15:30 Nose MRSA Culture (Admit) - Final MRSA NOT DETECTED Assessment and Plan (1) Atrial fibrillation with RVR Status: Acute (2) Altered mental status Status: Acute (3) Pneumonia Status: Acute (4) Multifocal pneumonia Status: Acute - Assessment and Plan (Free Text) Assessment: A/P- 73 year old male with a.fib and now found to have altered mental status and Right sided pneumonia , developed hypercapneic resp failure yesterday afternoon , s/p intubation and transferred to ICU then extubated after few days s/p left thoracenthesis 4 days ago cell count not c/w empyema as there is only 27% pmn of 10,000 total wbc clinically much improved afebrile normal wbc count Blood cx- neg x 3 trach asp cx- Negative x 2 hepatitis panel- neg urine legionella AG- neg mycoplasma IGM- negative PLan- completed 14 days of IV meropenem today. advise to d/c abx today. Monitor aspiration precautions. all labs and imaging and chart notes reviewed. Critical care time spent 30 minutes. d/w Photography Manager as well
--- NOTE | 2019-01-05 14:58 | CP.PCM.PN ---
Subjective - Date & Time of Evaluation Date of Evaluation: 01/05/19 Time of Evaluation: 10:00 - Subjective Subjective: F/U Pulmonary consult. awake, no AD, no SOB Objective - Vital Signs/Intake and Output Vital Signs (last 24 hours): Temp Pulse Resp BP Pulse Ox 97.4 F L 102 H 16 108/72 100 01/05/19 12:00 01/05/19 12:00 01/05/19 12:00 01/05/19 12:00 01/05/19 12:00 Intake and Output: 01/05/19 01/05/19 06:59 18:59 Intake Total 250 360 Output Total 240 Balance 250 120 - Medications Medications: Current Medications Acetaminophen (Tylenol 325mg Tab) 650 mg PO Q6 PRN PRN Reason: Pain, Mild (1-3) Last Admin: 12/24/18 20:36 Dose: 650 mg Acetaminophen (Tylenol 325mg Tab) 650 mg PO Q4 PRN PRN Reason: Fever >100.4 F Last Admin: 12/31/18 21:23 Dose: 650 mg Albuterol/Ipratropium (Duoneb 3 Mg/0.5 Mg (3 Ml) Ud) 3 ml INH RQID [facility] Last Admin: 01/05/19 12:35 Dose: 3 ml Artificial Tears (Artificial Tears) 2 drop OU Q4 PRN PRN Reason: Dry eyes Last Admin: 01/04/19 20:27 Dose: 2 drop Atorvastatin Calcium (Lipitor) 20 mg PO DAILY [facility] Last Admin: 01/05/19 08:53 Dose: 20 mg Diltiazem HCl (Cardizem) 90 mg PO Q6 [facility] Last Admin: 01/05/19 09:38 Dose: 90 mg Docusate Sodium (Colace Liquid) 100 mg PO BID [facility] Last Admin: 01/05/19 09:01 Dose: Not Given Enoxaparin Sodium (Lovenox) 90 mg SC Q12 [facility]; Protocol Last Admin: 01/05/19 08:51 Dose: 90 mg Famotidine (Pepcid) 40 mg PO HS [facility] Furosemide (Lasix) 40 mg PO DAILY [facility] Last Admin: 01/05/19 08:52 Dose: 40 mg Meropenem 1 gm/ Sodium (Chloride) 100 mls @ 100 mls/hr IVPB Q8@0600,1400,2200 [facility]; Protocol Last Admin: 01/05/19 13:27 Dose: 100 mls/hr Lactic Acid (Lac-Hydrin 12% Lotion (225 G)) 1 applic TOP BID [facility] Last Admin: 01/05/19 08:50 Dose: 1 applic Metoprolol Tartrate (Lopressor) 100 mg PO Q12 [facility] Promethazine HCl/Dextromethorphan (Phenergan Dm Syrup) 10 ml PO Q8 [facility] Last Admin: 01/05/19 08:54 Dose: 10 ml Tamsulosin HCl (Flomax) 0.4 mg PO DAILY [facility] Last Admin: 01/05/19 08:53 Dose: 0.4 mg - Labs Labs: 01/05/19 04:20 01/05/19 04:20 PT 14.3 Seconds (9.8-13.1) H 12/31/18 06:00 INR 1.3 12/31/18 06:00 APTT 36.7 Seconds (25.6-37.1) 12/31/18 06:00 - Constitutional Appears: No Acute Distress - Head Exam Head Exam: NORMAL INSPECTION - Eye Exam Eye Exam: PERRL - ENT Exam ENT Exam: Normal Exam - Neck Exam Neck Exam: Normal Inspection - Respiratory Exam Respiratory Exam: Rhonchi (scattered) - Cardiovascular Exam Cardiovascular Exam: Irregular Rhythm, Murmur (systolic) - GI/Abdominal Exam GI & Abdominal Exam: Soft, Normal Bowel Sounds - Extremities Exam Additional comments: Trace edema L/E - Back Exam Back Exam: NORMAL INSPECTION - Neurological Exam Neurological Exam: Alert, Awake, CN II-XII Intact Additional comments: No focal motor/sensory deficit. - Psychiatric Exam Psychiatric exam: Anxious - Skin Skin Exam: Warm Assessment and Plan (1) Aspiration pneumonia of right lung Status: Acute (2) Multifocal pneumonia Status: Acute (3) S/P thoracentesis Status: Acute (4) Pleural effusion, bilateral Status: Acute (5) Respiratory failure Status: Resolved (6) COPD (chronic obstructive pulmonary disease) Status: Chronic (7) Atrial fibrillation with RVR Status: Acute (8) Anemia Status: Acute - Assessment and Plan (Free Text) Plan: f/u CT Chest, Trachasp was neg, on Merren 14 days, f/u ID Critical care time: 32 min.
[2019-01-06] MEDS: Promethazine DM 12.5 mg-30 mg/10 ml Syrup PO SCH ×3 (01:00→17:34)
[2019-01-06 05:27] LABS: BASO # 0.1 K/uL (0.0-0.2); BASO % 0.9 % (0.0-2.0); EOS # 0.3 K/uL (0.0-0.7); HEMOGLOBIN 8.7 g/dL (12.0-18.0); LYMPH % 16.9 % (20.0-40.0); MEAN CELL VOLUME 108.4 fl (80.0-94.0); MEAN CORPUSCULAR HGB CONC 34.1 g/dL (33.0-37.0); MEAN PLATELET VOLUME 7.7 fl (7.2-11.7); MONO # 0.6 K/uL (0.0-0.8); MONO % 9.2 % (0.0-10.0); NEUT # 4.1 K/uL (1.8-7.0); NRBC % 0.1 % (0.0-0.0); RBC 2.35 Mil/uL (4.40-5.90); RED CELL DISTRIBUTION WIDTH 15.3 % (11.5-14.5)
[2019-01-06 05:31] LABS: ALB/GLOB RATIO 0.9 (1.0-2.1); ALBUMIN 2.7 g/dL (3.5-5.0); ALT/SGPT 43 U/L (21-72); AST/SGOT 36 U/L (17-59); BLOOD UREA NITROGEN 23 mg/dl (9-20); CALCIUM 8.3 mg/dL (8.4-10.2); GFR NON-AFRICAN AMERICAN > 60
[2019-01-06] MEDS: Albuterol-Ipratrop 3 mg / 0.5 (3 ml) UD INH SCH ×4 (07:19→19:30)
[2019-01-06] MEDS: Enoxaparin 100 mg Syringe SC SCH ×2 (08:26→21:11)
--- NOTE | 2019-01-06 11:25 | CP.CCUPN ---
<Cate Londono - Last Filed: 01/06/19 13:26> CCU Subjective - Physician Review Subjective (Free Text): No acute overnight events. Currently pending transfer to Telemetry floor. Doing well this AM, denies dyspnea, chest pain or palpitations. Patient has persistant cough, but improved. Oxygen saturation at 98-99 On NC, 2-4L of O2. Hear rate remains uncontrolled, 100's up to 150's on monitor PICC line present on RUE Good urine output, Tolerating PO and working with PT CXR, CT and labs reviewed. LLL effusion as seen on CT Assessment/Plan: 1. A Fib, acute on chronic -uncontrolled -cardio on board -EKG no acute ST or T wave changes -Echo EF 35-40% -ext US on admission: no DVTs -c/w Cardizem 90mg Q6 and Metropolol 50 Q12 -c/w Metropolol to 100mg BID -1x IVP dose of Lopressor -c/w Lovenox 90 SC 2. Pneumonia -resolved, not on any abx at this time -procalcitonin low -ID on board 3. Acute renal failure -improving, good output -c/w flomax 4. Pleural effusion -asymptomatic -reoccurring LLL effusion, moderately large as noted on CT -s/p thoracentesis on 12/31, transudative fluid -consider thoracentesis -pulmonary on board 5. Acute respiratory failure, resolved -likely 2/2 to pneumonia, pleural effusion -successfully extubated -duonab inh treatments 6. Altered mental status, resolved -likely 2/2 to metabolic encephalopathy -CT head no acute pathology 7. Anasarca, improving -likely 2/2 to fluid overload and hypoalbuminia -tolerating diuresis, c/w PO lasix -cont to monitor urine output 8. Anemia, acute -macrocytic anemia -likely 2/2 to bleeding from femoral line site -h/h stable at this time 9. Skin moles -black moles noted in skin (largest approx 0.5cm) -consider skin biopsy 10. Hematuria, resolved -likely 2/2 to trauma while rowell cath inserted -rowell dc'ed 11. Diet -swallow eval recs appreciated, pureed diet with honey thick liquids -video swallow eval ordered 12. DVT prolx -Lovenox SC CCU Objective - Vital Signs / Intake & Output Vital Signs (Last 4 hours): Vital Signs Temp Pulse Resp BP Pulse Ox 01/06/19 10:00 127 H 22 118/74 100 01/06/19 08:25 128 H 116/75 01/06/19 08:24 116/75 01/06/19 08:00 98.9 F 128 H 22 116/75 100 Intake and Output (Last 8hrs): Intake & Output 01/05/19 01/06/19 01/06/19 22:59 06:59 14:59 Intake Total 580 50 400 Output Total 750 500 Balance 580 -700 -100 Weight 90.628 kg Intake: IV 25 Oral 580 25 400 Output: Urine 750 500 Urine, Voided 750 500 Other: # Voids Urine, Voided 0 - Physical Exam Head: Positive for: Atraumatic, Normocephalic Pupils: Positive for: PERRL Extroacular Muscles: Positive for: EOMI Nose (External): Positive for: Other (nasal canula on ) Respiratory/Chest: Positive for: Rhonchi, Other (rhonchi in the lower lobes, decreased breath sounds in the lower lobes L>R). Negative for: Respiratory Distress, Accessory Muscle Use, Wheezes Cardiovascular: Positive for: Normal S1, S2, Irregular Rhythm, Tachycardic Abdomen: Positive for: Distention, Normal Bowel Sounds. Negative for: Tenderness, Peritoneal Signs Lower Extremity: Positive for: Edema Skin: Positive for: Rashes (tiny multiple dark spots in the body, looks like moles some with erythematous base), Other (multiple tattoes noted throughout the body) Psychiatric: Positive for: Alert, Oriented x 3 - Medications Active Medications: Active Medications Generic Name Dose Route Start Last Admin Trade Name Freq PRN Reason Stop Dose Admin Acetaminophen 650 mg 12/16/18 07:14 12/24/18 20:36 Tylenol 325mg Tab PO 650 mg Q6 PRN Administration Pain, Mild (1-3) Acetaminophen 650 mg 12/31/18 21:10 12/31/18 21:23 Tylenol 325mg Tab PO 650 mg Q4 PRN Administration Fever >100.4 F Albuterol/Ipratropium 3 ml 12/30/18 16:00 01/06/19 07:19 Duoneb 3 Mg/0.5 Mg (3 Ml) Ud INH 3 ml RQID [facility] Administration Artificial Tears 2 drop 12/28/18 20:32 01/04/19 20:27 Artificial Tears OU 2 drop Q4 PRN Administration Dry eyes Atorvastatin Calcium 20 mg 01/01/19 09:00 01/06/19 08:25 Lipitor PO 20 mg DAILY [facility] Administration Diltiazem HCl 90 mg 01/02/19 10:00 01/06/19 09:42 Cardizem PO 90 mg Q6 [facility] Administration Docusate Sodium 100 mg 12/29/18 09:00 01/06/19 08:24 Colace Liquid PO Not Given BID [facility] Enoxaparin Sodium 90 mg 01/04/19 21:00 01/06/19 08:26 Lovenox SC 90 mg Q12 [facility] Administration Protocol Famotidine 40 mg 01/05/19 22:00 01/05/19 21:42 Pepcid PO 40 mg HS [facility] Administration Furosemide 40 mg 01/05/19 09:00 01/06/19 08:24 Lasix PO 40 mg DAILY [facility] Administration Lactic Acid 1 applic 12/21/18 17:00 01/06/19 08:24 Lac-Hydrin 12% Lotion (225 G) TOP 1 applic BID [facility] Administration Metoprolol Tartrate 100 mg 01/05/19 21:00 01/06/19 08:25 Lopressor PO 100 mg Q12 [facility] Administration Promethazine HCl/Dextromethorphan 10 ml 01/03/19 17:00 01/06/19 08:26 Phenergan Dm Syrup PO 10 ml Q8 [facility] Administration Tamsulosin HCl 0.4 mg 01/02/19 09:00 01/06/19 08:23 Flomax PO 0.4 mg DAILY [facility] Administration - Patient Studies Lab Studies: Lab Studies 01/06/19 01/06/19 12/31/18 Range/Units 05:00 05:00 15:45 WBC 6.0 (4.8-10.8) K/uL RBC 2.35 L (4.40-5.90) Mil/uL Hgb 8.7 L (12.0-18.0) g/dL Hct 25.4 L (35.0-51.0) % MCV 108.4 H D (80.0-94.0) fl MCH 37.0 H (27.0-31.0) pg MCHC 34.1 (33.0-37.0) g/dL RDW 15.3 H (11.5-14.5) % Plt Count 311 (130-400) K/uL MPV 7.7 (7.2-11.7) fl Neut % (Auto) 68.0 (50.0-75.0) % Lymph % (Auto) 16.9 L (20.0-40.0) % [place] % (Auto) 9.2 (0.0-10.0) % Eos % (Auto) 5.0 H (0.0-4.0) % Baso % (Auto) 0.9 (0.0-2.0) % Neut # (Auto) 4.1 (1.8-7.0) K/uL Lymph # (Auto) 1.0 (1.0-4.3) K/uL [place] # (Auto) 0.6 (0.0-0.8) K/uL Eos # (Auto) 0.3 (0.0-0.7) K/uL Baso # (Auto) 0.1 (0.0-0.2) K/uL Sodium 137 (132-148) mmol/l Potassium 4.3 (3.6-5.0) MMOL/L Chloride 103 (98-107) mmol/L Carbon Dioxide 32 H (22-30) mmol/L Anion Gap 6 L (10-20) BUN 23 H (9-20) mg/dl Creatinine 0.9 (0.8-1.5) mg/dl Est GFR ( Amer) > 60 Est GFR (Non-Af Amer) > 60 Random Glucose 87 (75-110) mg/dL Calcium 8.3 L (8.4-10.2) mg/dL Total Bilirubin 0.5 (0.2-1.3) mg/dl AST 36 (17-59) U/L ALT 43 (21-72) U/L Alkaline Phosphatase 144 H (38-126) U/L Total Protein 5.8 L (6.3-8.2) G/DL Albumin 2.7 L (3.5-5.0) g/dL Globulin 3.1 (2.2-3.9) gm/dL Albumin/Globulin Ratio 0.9 L (1.0-2.1) Vitamin B12 538 (239-931) pg/mL Synovial Total Protein 1.1 (1.0-3.0) g/dL Laboratory Results - last 24 hr 12/31/18 01/06/19 01/06/19 15:45 05:00 05:00 WBC 6.0 RBC 2.35 L Hgb 8.7 L Hct 25.4 L MCV 108.4 H D MCH 37.0 H MCHC 34.1 RDW 15.3 H Plt Count 311 MPV 7.7 Neut % (Auto) 68.0 Lymph % (Auto) 16.9 L [place] % (Auto) 9.2 Eos % (Auto) 5.0 H Baso % (Auto) 0.9 Neut # (Auto) 4.1 Lymph # (Auto) 1.0 [place] # (Auto) 0.6 Eos # (Auto) 0.3 Baso # (Auto) 0.1 Sodium 137 Potassium 4.3 Chloride 103 Carbon Dioxide 32 H Anion Gap 6 L BUN 23 H Creatinine 0.9 Est GFR ( Amer) > 60 Est GFR (Non-Af Amer) > 60 Random Glucose 87 Calcium 8.3 L Total Bilirubin 0.5 AST 36 ALT 43 Alkaline Phosphatase 144 H Total Protein 5.8 L Albumin 2.7 L Globulin 3.1 Albumin/Globulin Ratio 0.9 L Vitamin B12 538 Synovial Total Protein 1.1 Fingerstick Blood Sugar Results: 122 Critical Care Progress Note - Nutrition Nutrition: Nutrition Category Date Time Status Dysphagia/Modified Consistency Diet [DIET] Diets 01/03/19 Dinner Active <Main Roldan - Last Filed: 01/06/19 17:36> Assessment/Plan - Assessment and Plan (Free Text) Plan: Attestation: Patient seen and examined at the bedside with Resident Dr. Leon Londono; and I agree with her outline of plans and management documented above as discussed on AM rounds; reflecting my review of all applicable clinical data, and participation in the care of the patient throughout the day in ICU; today, January 06, 2019.
[2019-01-06] MEDS ORDERED: Metoprolol 1 mg/ml Inj IVP ONE (12:00)
--- NOTE | 2019-01-06 12:23 | CT ---
Date of service: 01/06/2019 PROCEDURE: CT Chest without contrast HISTORY: pneumonia COMPARISON: Unenhanced chest CT 12/22/2018. TECHNIQUE: Contiguous axial images were obtained through the chest without intravenous contrast enhancement. Sagittal and coronal reconstructions were performed. Radiation dose: Total exam DLP = 476.47 mGy-cm. This CT exam was performed using one or more of the following dose reduction techniques: Automated exposure control, adjustment of the mA and/or kV according to patient size, and/or use of iterative reconstruction technique. FINDINGS: LUNGS: There is significant interval improvement in right upper, right lower and middle lobe mixed interstitial and alveolar with limited left perihilar infiltrate at the left upper lobe nearly completely resolved. Central airways are remarkable only for trace likely mucoid material adhering to the anterior left lateral trachea at the thoracic inlet. MEDIASTINUM: Interval right PICC is identified at the right axillary and subclavian veins entering into the thoracic inlet and terminating at the distal superior vena cava. A stable ascending thoracic aortic aneurysm is reiterated measuring 4.4 cm greatest dimension. Stable mild cardiomegaly. Trace pericardial fluid or thickening now identified. The main pulmonary artery measures up to 3.4 cm greatest caliber and an element of pulmonary artery hypertension is difficult to completely exclude. No significant lymphadenopathy once again. Calcific atherosclerotic changes are seen related to the thoracic aorta. PLEURA: Left pleural effusion appears moderately large and is increased in the interval. Trace right pleural effusion unchanged. BONES: Bony demineralization noted diffusely reiterated at the thoracic skeleton with extensive multilevel thoracic spondylosis again evident. UPPER ABDOMEN: Grossly unremarkable. OTHER FINDINGS: None. IMPRESSION: 1. Significant improvement in multifocal mixed infiltrates primarily at the right upper middle and lower lobes as well as perihilar left upper lobe. 2. Interval increase in left pleural effusion appears moderately large in size with compressive atelectasis affecting left lower lobe. 3. Interval right PICC insertion as per above.
[2019-01-06] MEDS ORDERED: Barium Sulfate Susp 0.1% w/v, 0.1% w/w 450 mL Bottle PO ONE (13:20)
--- NOTE | 2019-01-06 15:45 | RAD ---
Date of service: 01/06/2019 PROCEDURE: Modified barium video swallow HISTORY: cva COMPARISON: Not available TECHNIQUE: A modified barium video swallow was performed in conjunction with a member of the speech therapy department. Barium and food mixtures of varying viscosity were administered orally, under fluoroscopic monitoring. Total time of fluoroscopy was 63.4 sec. Cumulative dose was 4.04 mGy FINDINGS: Laryngeal penetration was observed with administration of thin liquids but with no other mixture. There was no aspiration observed during this examination. IMPRESSION: No aspiration identified. Please see the full report from speech therapy for evaluation of the swallowing mechanism.
--- NOTE | 2019-01-06 16:49 | CP.PCM.PN ---
Subjective - Date & Time of Evaluation Date of Evaluation: 01/06/19 Time of Evaluation: 10:40 - Subjective Subjective: F/U Pulmonary consult. No A/D, NC, occasional cough, no SOB, NC. Objective - Vital Signs/Intake and Output Vital Signs (last 24 hours): Temp Pulse Resp BP Pulse Ox 98.3 F 135 H 12 110/71 99 01/06/19 16:00 01/06/19 16:00 01/06/19 16:00 01/06/19 16:00 01/06/19 16:00 Intake and Output: 01/06/19 01/06/19 06:59 18:59 Intake Total 150 600 Output Total 750 501 Balance -600 99 - Medications Medications: Current Medications Acetaminophen (Tylenol 325mg Tab) 650 mg PO Q6 PRN PRN Reason: Pain, Mild (1-3) Last Admin: 12/24/18 20:36 Dose: 650 mg Acetaminophen (Tylenol 325mg Tab) 650 mg PO Q4 PRN PRN Reason: Fever >100.4 F Last Admin: 12/31/18 21:23 Dose: 650 mg Albuterol/Ipratropium (Duoneb 3 Mg/0.5 Mg (3 Ml) Ud) 3 ml INH RQID [facility] Last Admin: 01/06/19 15:23 Dose: 3 ml Artificial Tears (Artificial Tears) 2 drop OU Q4 PRN PRN Reason: Dry eyes Last Admin: 01/04/19 20:27 Dose: 2 drop Atorvastatin Calcium (Lipitor) 20 mg PO DAILY [facility] Last Admin: 01/06/19 08:25 Dose: 20 mg Diltiazem HCl (Cardizem) 90 mg PO Q6 [facility] Last Admin: 01/06/19 09:42 Dose: 90 mg Docusate Sodium (Colace Liquid) 100 mg PO BID [facility] Last Admin: 01/06/19 08:24 Dose: Not Given Enoxaparin Sodium (Lovenox) 90 mg SC Q12 [facility]; Protocol Last Admin: 01/06/19 08:26 Dose: 90 mg Famotidine (Pepcid) 40 mg PO HS [facility] Last Admin: 01/05/19 21:42 Dose: 40 mg Furosemide (Lasix) 40 mg PO DAILY [facility] Last Admin: 01/06/19 08:24 Dose: 40 mg Lactic Acid (Lac-Hydrin 12% Lotion (225 G)) 1 applic TOP BID [facility] Last Admin: 01/06/19 08:24 Dose: 1 applic Metoprolol Tartrate (Lopressor) 100 mg PO Q12 [facility] Last Admin: 01/06/19 08:25 Dose: 100 mg Promethazine HCl/Dextromethorphan (Phenergan Dm Syrup) 10 ml PO Q8 [facility] Last Admin: 01/06/19 08:26 Dose: 10 ml Tamsulosin HCl (Flomax) 0.4 mg PO DAILY [facility] Last Admin: 01/06/19 08:23 Dose: 0.4 mg - Labs Labs: 01/06/19 05:00 01/06/19 05:00 PT 14.3 Seconds (9.8-13.1) H 12/31/18 06:00 INR 1.3 12/31/18 06:00 APTT 36.7 Seconds (25.6-37.1) 12/31/18 06:00 - Constitutional Appears: No Acute Distress - Head Exam Head Exam: NORMAL INSPECTION - Eye Exam Eye Exam: PERRL - ENT Exam ENT Exam: Normal Exam - Neck Exam Neck Exam: Normal Inspection - Respiratory Exam Respiratory Exam: Decreased Breath Sounds (at bases L > R), Rhonchi (scattered at bases) - Cardiovascular Exam Cardiovascular Exam: Irregular Rhythm, Murmur (systolic) - GI/Abdominal Exam GI & Abdominal Exam: Soft, Normal Bowel Sounds - Extremities Exam Additional comments: Trace edema BLE - Back Exam Back Exam: NORMAL INSPECTION - Neurological Exam Neurological Exam: Alert, Awake, CN II-XII Intact Additional comments: No focal motor/sensory deficit. - Psychiatric Exam Psychiatric exam: Anxious - Skin Skin Exam: Warm Assessment and Plan (1) Aspiration pneumonia of right lung Status: Acute (2) Multifocal pneumonia Status: Acute (3) S/P thoracentesis Status: Acute (4) Pleural effusion, bilateral Assessment & Plan: L > R Status: Acute (5) Respiratory failure Status: Resolved (6) COPD (chronic obstructive pulmonary disease) Status: Chronic (7) Atrial fibrillation with RVR Status: Acute (8) Anemia Status: Acute - Assessment and Plan (Free Text) Plan: CT Chest: Multifocal PNA resolving, monitor increase L Pleural effusion, off Abt, continue O2 NC, Duoneb and rest of Tx.
--- NOTE | 2019-01-06 18:56 | CP.PCM.PN ---
Subjective - Date & Time of Evaluation Date of Evaluation: 01/06/19 Time of Evaluation: 18:55 - Subjective Subjective: no new complaisnt. being transferred to Objective - Vital Signs/Intake and Output Vital Signs (last 24 hours): Temp Pulse Resp BP Pulse Ox 98.3 F 135 H 12 110/71 99 01/06/19 16:00 01/06/19 16:00 01/06/19 16:00 01/06/19 16:00 01/06/19 16:00 Intake and Output: 01/06/19 01/06/19 06:59 18:59 Intake Total 150 850 Output Total 750 1001 Balance -600 -151 - Medications Medications: Current Medications Acetaminophen (Tylenol 325mg Tab) 650 mg PO Q6 PRN PRN Reason: Pain, Mild (1-3) Last Admin: 12/24/18 20:36 Dose: 650 mg Acetaminophen (Tylenol 325mg Tab) 650 mg PO Q4 PRN PRN Reason: Fever >100.4 F Last Admin: 12/31/18 21:23 Dose: 650 mg Albuterol/Ipratropium (Duoneb 3 Mg/0.5 Mg (3 Ml) Ud) 3 ml INH RQID [facility] Last Admin: 01/06/19 15:23 Dose: 3 ml Artificial Tears (Artificial Tears) 2 drop OU Q4 PRN PRN Reason: Dry eyes Last Admin: 01/04/19 20:27 Dose: 2 drop Atorvastatin Calcium (Lipitor) 20 mg PO DAILY [facility] Last Admin: 01/06/19 08:25 Dose: 20 mg Diltiazem HCl (Cardizem) 90 mg PO Q6 [facility] Last Admin: 01/06/19 17:34 Dose: 90 mg Docusate Sodium (Colace Liquid) 100 mg PO BID [facility] Last Admin: 01/06/19 17:34 Dose: Not Given Enoxaparin Sodium (Lovenox) 90 mg SC Q12 [facility]; Protocol Last Admin: 01/06/19 08:26 Dose: 90 mg Famotidine (Pepcid) 40 mg PO HS [facility] Last Admin: 01/05/19 21:42 Dose: 40 mg Furosemide (Lasix) 40 mg PO DAILY [facility] Last Admin: 01/06/19 08:24 Dose: 40 mg Lactic Acid (Lac-Hydrin 12% Lotion (225 G)) 1 applic TOP BID [facility] Last Admin: 01/06/19 17:34 Dose: 1 applic Metoprolol Tartrate (Lopressor) 100 mg PO Q12 [facility] Last Admin: 01/06/19 08:25 Dose: 100 mg Promethazine HCl/Dextromethorphan (Phenergan Dm Syrup) 10 ml PO Q8 [facility] Last Admin: 01/06/19 17:34 Dose: 10 ml Tamsulosin HCl (Flomax) 0.4 mg PO DAILY [facility] Last Admin: 01/06/19 08:23 Dose: 0.4 mg - Labs Labs: 01/06/19 05:00 01/06/19 05:00 PT 14.3 Seconds (9.8-13.1) H 12/31/18 06:00 INR 1.3 12/31/18 06:00 APTT 36.7 Seconds (25.6-37.1) 12/31/18 06:00 - Constitutional Appears: Non-toxic - Head Exam Head Exam: NORMAL INSPECTION - Eye Exam Eye Exam: Normal appearance - ENT Exam ENT Exam: Mucous Membranes Moist - Neck Exam Neck Exam: Full ROM - Respiratory Exam Respiratory Exam: Decreased Breath Sounds - Cardiovascular Exam Cardiovascular Exam: Irregular Rhythm - GI/Abdominal Exam GI & Abdominal Exam: Normal Bowel Sounds - Rectal Exam Rectal Exam: Deferred - Extremities Exam Extremities Exam: absent: Pedal Edema - Back Exam Back Exam: NORMAL INSPECTION - Neurological Exam Neurological Exam: Alert - Psychiatric Exam Psychiatric exam: Normal Affect - Skin Skin Exam: Normal Color Assessment and Plan (1) Atrial fibrillation with RVR Assessment & Plan: continue oral medications titrate cardizem Status: Acute
[2019-01-07] MEDS: Promethazine DM 12.5 mg-30 mg/10 ml Syrup PO SCH ×3 (03:52→18:22)
[2019-01-07 06:14] LABS: BASO # 0.1 K/uL (0.0-0.2); BASO % 1.1 % (0.0-2.0); EOS # 0.3 K/uL (0.0-0.7); EOS % 4.9 % (0.0-4.0); HEMOGLOBIN 9.1 g/dL (12.0-18.0); LYMPH # 0.8 K/uL (1.0-4.3); LYMPH % 14.5 % (20.0-40.0); MEAN CELL VOLUME 107.7 fl (80.0-94.0); MEAN CORPUSCULAR HEMOGLOBIN 36.7 pg (27.0-31.0); MEAN CORPUSCULAR HGB CONC 34.1 g/dL (33.0-37.0); MEAN PLATELET VOLUME 7.6 fl (7.2-11.7); MONO # 0.4 K/uL (0.0-0.8); MONO % 8.5 % (0.0-10.0); NEUT # 3.8 K/uL (1.8-7.0); RBC 2.47 Mil/uL (4.40-5.90); RED CELL DISTRIBUTION WIDTH 15.8 % (11.5-14.5); WHITE BLOOD COUNT 5.3 K/uL (4.8-10.8)
[2019-01-07 06:46] LABS: BLOOD UREA NITROGEN 20 mg/dl (9-20); CALCIUM 8.9 mg/dL (8.4-10.2); GFR NON-AFRICAN AMERICAN > 60
[2019-01-07] MEDS: Albuterol-Ipratrop 3 mg / 0.5 (3 ml) UD INH SCH ×4 (07:38→19:25)
[2019-01-07] MEDS: Enoxaparin 100 mg Syringe SC SCH (09:36)
[2019-01-07] MEDS ORDERED: Lidocaine Hydrochloride 1% 10 ML ONE (10:16)
--- NOTE | 2019-01-07 10:55 | PCM.SURG1 ---
Surgeon's Initial Post Op Note - Surgeon's Notes Surgeon: Dallas Lane MD Wind Up Operator: NONE Type of Anesthesia: Local Pre-Operative Diagnosis: Shortness of breath Operative Findings: US showed moderate left pleural effusion Post-Operative Diagnosis: Shortness of breath Operation Performed: US guided left thoracentesis Specimen/Specimens Removed: 800 cc of straw colored fluid Estimated Blood Loss: EBL {In ML}: 0 Blood Products Given: N/A Drains Used: No Drains Post-Op Condition: Fair Date of Surgery/Procedure: 01/07/19 Time of Surgery/Procedure: 10:50
--- NOTE | 2019-01-07 11:25 | RAD ---
Date of service: 01/07/2019 PROCEDURE: CHEST RADIOGRAPH, 1 VIEW HISTORY: Status post left thoracentesis COMPARISON: None available. FINDINGS: LUNGS: Clear. PLEURA: There is no pneumothorax following left thoracentesis. Mild blunting of the right costophrenic margin consistent with a trace right pleural effusion. CARDIOVASCULAR: Minimal aortic atherosclerotic calcification present in the arch. OSSEOUS STRUCTURES: No significant abnormalities. VISUALIZED UPPER ABDOMEN: Normal. OTHER FINDINGS: Right-sided PICC with tip in the SVC. IMPRESSION: Improved aeration of the left lung following left thoracentesis. There is no pneumothorax.
--- NOTE | 2019-01-07 16:44 | CP.PCM.PN ---
Subjective - Date & Time of Evaluation Date of Evaluation: 01/07/19 Time of Evaluation: 13:30 - Subjective Subjective: F/U Pulmonary consult. No A/D, no SOB. Objective - Vital Signs/Intake and Output Vital Signs (last 24 hours): Temp Pulse Resp BP Pulse Ox 98.1 F 75 20 103/70 97 01/07/19 15:40 01/07/19 15:40 01/07/19 15:40 01/07/19 15:40 01/07/19 15:40 - Medications Medications: Current Medications Acetaminophen (Tylenol 325mg Tab) 650 mg PO Q6 PRN PRN Reason: Pain, Mild (1-3) Last Admin: 12/24/18 20:36 Dose: 650 mg Acetaminophen (Tylenol 325mg Tab) 650 mg PO Q4 PRN PRN Reason: Fever >100.4 F Last Admin: 12/31/18 21:23 Dose: 650 mg Albuterol/Ipratropium (Duoneb 3 Mg/0.5 Mg (3 Ml) Ud) 3 ml INH RQID [facility] Last Admin: 01/07/19 16:31 Dose: 3 ml Artificial Tears (Artificial Tears) 2 drop OU Q4 PRN PRN Reason: Dry eyes Last Admin: 01/04/19 20:27 Dose: 2 drop Atorvastatin Calcium (Lipitor) 20 mg PO DAILY [facility] Last Admin: 01/07/19 09:35 Dose: 20 mg Diltiazem HCl (Cardizem) 90 mg PO Q6 [facility] Last Admin: 01/07/19 09:34 Dose: 90 mg Docusate Sodium (Colace Liquid) 100 mg PO BID [facility] Last Admin: 01/07/19 09:34 Dose: 100 mg Enoxaparin Sodium (Lovenox) 90 mg SC Q12 [facility]; Protocol Last Admin: 01/07/19 09:36 Dose: 90 mg Famotidine (Pepcid) 40 mg PO HS [facility] Last Admin: 01/06/19 21:12 Dose: 40 mg Furosemide (Lasix) 40 mg PO DAILY [facility] Last Admin: 01/07/19 09:35 Dose: 40 mg Lactic Acid (Lac-Hydrin 12% Lotion (225 G)) 1 applic TOP BID [facility] Last Admin: 01/07/19 09:34 Dose: 1 applic Metoprolol Tartrate (Lopressor) 100 mg PO Q12 [facility] Last Admin: 01/07/19 09:35 Dose: 100 mg Promethazine HCl/Dextromethorphan (Phenergan Dm Syrup) 10 ml PO Q8 [facility] Last Admin: 01/07/19 09:36 Dose: 10 ml Tamsulosin HCl (Flomax) 0.4 mg PO DAILY [facility] Last Admin: 01/07/19 09:34 Dose: 0.4 mg - Labs Labs: 01/07/19 05:55 01/07/19 05:55 PT 14.3 Seconds (9.8-13.1) H 12/31/18 06:00 INR 1.3 12/31/18 06:00 APTT 36.7 Seconds (25.6-37.1) 12/31/18 06:00 - Constitutional Appears: No Acute Distress - Head Exam Head Exam: NORMAL INSPECTION - Eye Exam Eye Exam: PERRL - ENT Exam ENT Exam: Normal Exam - Neck Exam Neck Exam: Normal Inspection - Respiratory Exam Respiratory Exam: Decreased Breath Sounds (at bases L>R), Rhonchi (L base) - Cardiovascular Exam Cardiovascular Exam: Irregular Rhythm, Murmur (systolic) - GI/Abdominal Exam GI & Abdominal Exam: Soft, Normal Bowel Sounds - Extremities Exam Additional comments: Trace edema on extremities. - Back Exam Back Exam: NORMAL INSPECTION - Neurological Exam Neurological Exam: Alert, Awake, CN II-XII Intact Additional comments: No focal motor/sensory deficit - Psychiatric Exam Additional comments: Calm - Skin Skin Exam: Warm Assessment and Plan (1) Aspiration pneumonia of right lung Status: Acute (2) Multifocal pneumonia Status: Acute (3) S/P thoracentesis Status: Acute (4) Pleural effusion, bilateral Status: Acute (5) Respiratory failure Status: Resolved (6) COPD (chronic obstructive pulmonary disease) Status: Chronic (7) Atrial fibrillation with RVR Status: Acute (8) Anemia Status: Acute - Assessment and Plan (Free Text) Plan: Pt had L Thoracentesis today with 800 ml fluid removed, CXR: Improved aeration L lung after Thoracentesis, continue O2 NC, Duoneb, Phenergan DM.
[2019-01-07] MEDS ORDERED: Digoxin 500 mcg/2ml (0.5 mg/2ml) Inj IVP ONE (19:30)
[2019-01-08] MEDS: Promethazine DM 12.5 mg-30 mg/10 ml Syrup PO SCH ×3 (00:35→17:52)
[2019-01-08] MEDS: Albuterol-Ipratrop 3 mg / 0.5 (3 ml) UD INH SCH ×4 (07:48→19:55)
--- NOTE | 2019-01-08 15:18 | CP.PCM.PN ---
Subjective - Date & Time of Evaluation Date of Evaluation: 01/08/19 Time of Evaluation: 12:40 - Subjective Subjective: F/U Pulmonary consult. Alert,no A/D. no SOB, no CP. Objective - Vital Signs/Intake and Output Vital Signs (last 24 hours): Temp Pulse Resp BP Pulse Ox 97.7 F 87 18 126/71 94 L 01/08/19 11:50 01/08/19 11:50 01/08/19 11:50 01/08/19 11:50 01/08/19 11:50 Intake and Output: 01/08/19 01/08/19 06:59 18:59 Output Total 900 400 Balance -900 -400 - Medications Medications: Current Medications Acetaminophen (Tylenol 325mg Tab) 650 mg PO Q6 PRN PRN Reason: Pain, Mild (1-3) Last Admin: 01/08/19 06:59 Dose: 650 mg Acetaminophen (Tylenol 325mg Tab) 650 mg PO Q4 PRN PRN Reason: Fever >100.4 F Last Admin: 12/31/18 21:23 Dose: 650 mg Albuterol/Ipratropium (Duoneb 3 Mg/0.5 Mg (3 Ml) Ud) 3 ml INH RQID [facility] Last Admin: 01/08/19 10:53 Dose: 3 ml Apixaban (Eliquis) 5 mg PO BID [facility]; Protocol Last Admin: 01/08/19 09:52 Dose: 5 mg Artificial Tears (Artificial Tears) 2 drop OU Q4 PRN PRN Reason: Dry eyes Last Admin: 01/04/19 20:27 Dose: 2 drop Atorvastatin Calcium (Lipitor) 20 mg PO DAILY [facility] Last Admin: 01/08/19 09:51 Dose: 20 mg Diltiazem HCl (Cardizem) 90 mg PO Q6 [facility] Last Admin: 01/08/19 11:56 Dose: 90 mg Docusate Sodium (Colace Liquid) 100 mg PO BID [facility] Last Admin: 01/08/19 09:52 Dose: 100 mg Famotidine (Pepcid) 40 mg PO HS [facility] Last Admin: 01/07/19 21:20 Dose: 40 mg Furosemide (Lasix) 40 mg PO DAILY [facility] Last Admin: 01/08/19 09:51 Dose: 40 mg Lactic Acid (Lac-Hydrin 12% Lotion (225 G)) 1 applic TOP BID [facility] Last Admin: 01/08/19 09:51 Dose: 1 applic Metoprolol Tartrate (Lopressor) 100 mg PO Q12 [facility] Last Admin: 01/08/19 09:50 Dose: 100 mg Promethazine HCl/Dextromethorphan (Phenergan Dm Syrup) 10 ml PO Q8 [facility] Last Admin: 01/08/19 09:50 Dose: 10 ml Tamsulosin HCl (Flomax) 0.4 mg PO DAILY [facility] Last Admin: 01/08/19 09:52 Dose: 0.4 mg - Labs Labs: 01/07/19 05:55 01/07/19 05:55 PT 14.3 Seconds (9.8-13.1) H 12/31/18 06:00 INR 1.3 12/31/18 06:00 APTT 36.7 Seconds (25.6-37.1) 12/31/18 06:00 - Constitutional Appears: No Acute Distress - Head Exam Head Exam: NORMAL INSPECTION - Eye Exam Eye Exam: PERRL - ENT Exam ENT Exam: Normal Exam - Neck Exam Neck Exam: Normal Inspection - Respiratory Exam Respiratory Exam: Decreased Breath Sounds (at bases L>R), Rhonchi (L base) - Cardiovascular Exam Cardiovascular Exam: Irregular Rhythm, Murmur (systolic) - GI/Abdominal Exam GI & Abdominal Exam: Soft, Normal Bowel Sounds - Extremities Exam Additional comments: Trace edema extremities - Back Exam Back Exam: NORMAL INSPECTION - Neurological Exam Neurological Exam: Alert, Awake, CN II-XII Intact Additional comments: No focal motor/sensory deficit. - Psychiatric Exam Additional comments: Calm - Skin Skin Exam: Warm Assessment and Plan (1) Aspiration pneumonia of right lung Assessment & Plan: improved Status: Acute (2) Multifocal pneumonia Assessment & Plan: improved Status: Acute (3) S/P thoracentesis Assessment & Plan: S/P L Thoracentesis, L Pleural effusion inmproved Status: Acute (4) Pleural effusion, bilateral Assessment & Plan: improved Status: Acute (5) Respiratory failure Status: Resolved (6) COPD (chronic obstructive pulmonary disease) Status: Chronic (7) Atrial fibrillation with RVR Status: Acute (8) Anemia Status: Acute - Assessment and Plan (Free Text) Plan: Continue O2 NC 2 L/M, Duoneb, Phenergan DM prn.
[2019-01-09] MEDS: Promethazine DM 12.5 mg-30 mg/10 ml Syrup PO SCH ×3 (00:35→17:11)
[2019-01-09] MEDS: Albuterol-Ipratrop 3 mg / 0.5 (3 ml) UD INH SCH ×4 (08:43→19:15)
--- NOTE | 2019-01-09 12:15 | CP.PCM.PN ---
Subjective - Date & Time of Evaluation Date of Evaluation: 01/09/19 Time of Evaluation: 12:00 - Subjective Subjective: morena has no chest pain. breathing imrpoved. Objective - Vital Signs/Intake and Output Vital Signs (last 24 hours): Temp Pulse Resp BP Pulse Ox 97.9 F 89 18 125/74 94 L 01/09/19 08:00 01/09/19 08:49 01/09/19 08:00 01/09/19 08:49 01/09/19 08:00 Intake and Output: 01/09/19 01/09/19 06:59 18:59 Intake Total 240 Output Total 400 Balance -160 - Medications Medications: Current Medications Acetaminophen (Tylenol 325mg Tab) 650 mg PO Q6 PRN PRN Reason: Pain, Mild (1-3) Last Admin: 01/08/19 06:59 Dose: 650 mg Acetaminophen (Tylenol 325mg Tab) 650 mg PO Q4 PRN PRN Reason: Fever >100.4 F Last Admin: 12/31/18 21:23 Dose: 650 mg Albuterol/Ipratropium (Duoneb 3 Mg/0.5 Mg (3 Ml) Ud) 3 ml INH RQID [facility] Last Admin: 01/09/19 11:46 Dose: 3 ml Apixaban (Eliquis) 5 mg PO BID [facility]; Protocol Last Admin: 01/09/19 08:49 Dose: 5 mg Artificial Tears (Artificial Tears) 2 drop OU Q4 PRN PRN Reason: Dry eyes Last Admin: 01/04/19 20:27 Dose: 2 drop Atorvastatin Calcium (Lipitor) 20 mg PO DAILY [facility] Last Admin: 01/09/19 08:50 Dose: 20 mg Diltiazem HCl (Cardizem) 90 mg PO Q6 [facility] Last Admin: 01/09/19 08:59 Dose: 90 mg Docusate Sodium (Colace Liquid) 100 mg PO BID [facility] Last Admin: 01/09/19 08:48 Dose: 100 mg Famotidine (Pepcid) 40 mg PO HS [facility] Last Admin: 01/08/19 21:30 Dose: 40 mg Furosemide (Lasix) 40 mg PO DAILY [facility] Last Admin: 01/09/19 08:49 Dose: 40 mg Lactic Acid (Lac-Hydrin 12% Lotion (225 G)) 1 applic TOP BID [facility] Last Admin: 01/09/19 08:48 Dose: 1 applic Metoprolol Tartrate (Lopressor) 100 mg PO Q12 [facility] Last Admin: 01/09/19 08:49 Dose: 100 mg Promethazine HCl/Dextromethorphan (Phenergan Dm Syrup) 10 ml PO Q8 [facility] Last Admin: 01/09/19 08:49 Dose: 10 ml Tamsulosin HCl (Flomax) 0.4 mg PO DAILY [facility] Last Admin: 01/09/19 08:49 Dose: 0.4 mg - Labs Labs: 01/07/19 05:55 01/07/19 05:55 PT 14.3 Seconds (9.8-13.1) H 12/31/18 06:00 INR 1.3 12/31/18 06:00 APTT 36.7 Seconds (25.6-37.1) 12/31/18 06:00 - Constitutional Appears: Non-toxic - Head Exam Head Exam: NORMAL INSPECTION - Eye Exam Eye Exam: Normal appearance - ENT Exam ENT Exam: Mucous Membranes Dry - Respiratory Exam Respiratory Exam: Decreased Breath Sounds - Cardiovascular Exam Cardiovascular Exam: Irregular Rhythm - GI/Abdominal Exam GI & Abdominal Exam: Normal Bowel Sounds - Rectal Exam Rectal Exam: Deferred - Extremities Exam Extremities Exam: absent: Pedal Edema - Back Exam Back Exam: NORMAL INSPECTION - Neurological Exam Neurological Exam: Alert - Psychiatric Exam Psychiatric exam: Normal Affect - Skin Skin Exam: Normal Color Assessment and Plan (1) Atrial fibrillation with RVR Assessment & Plan: rate is controlled. will change to daily cardizem. on Eliquis Status: Acute
[2019-01-10] MEDS: Promethazine DM 12.5 mg-30 mg/10 ml Syrup PO SCH ×3 (00:42→16:42)
--- NOTE | 2019-01-10 04:44 | CP.PCM.PN ---
Subjective - Date & Time of Evaluation Date of Evaluation: 01/06/19 Objective - Vital Signs/Intake and Output Vital Signs (last 24 hours): Temp Pulse Resp BP Pulse Ox 97.9 F 76 18 112/67 96 01/10/19 00:23 01/10/19 00:23 01/10/19 00:23 01/10/19 00:23 01/10/19 00:23 Intake and Output: 01/09/19 01/10/19 18:59 06:59 Intake Total 240 Output Total 1100 Balance -860 - Medications Medications: Current Medications Acetaminophen (Tylenol 325mg Tab) 650 mg PO Q6 PRN PRN Reason: Pain, Mild (1-3) Last Admin: 01/08/19 06:59 Dose: 650 mg Acetaminophen (Tylenol 325mg Tab) 650 mg PO Q4 PRN PRN Reason: Fever >100.4 F Last Admin: 12/31/18 21:23 Dose: 650 mg Albuterol/Ipratropium (Duoneb 3 Mg/0.5 Mg (3 Ml) Ud) 3 ml INH RQID [facility] Last Admin: 01/09/19 19:15 Dose: 3 ml Apixaban (Eliquis) 5 mg PO BID [facility]; Protocol Last Admin: 01/09/19 17:11 Dose: 5 mg Artificial Tears (Artificial Tears) 2 drop OU Q4 PRN PRN Reason: Dry eyes Last Admin: 01/04/19 20:27 Dose: 2 drop Atorvastatin Calcium (Lipitor) 20 mg PO DAILY [facility] Last Admin: 01/09/19 08:50 Dose: 20 mg Diltiazem HCl (Cardizem Cd) 240 mg PO DAILY [facility] Docusate Sodium (Colace Liquid) 100 mg PO BID [facility] Last Admin: 01/09/19 17:10 Dose: 100 mg Famotidine (Pepcid) 40 mg PO HS [facility] Last Admin: 01/09/19 21:08 Dose: 40 mg Furosemide (Lasix) 40 mg PO DAILY [facility] Last Admin: 01/09/19 08:49 Dose: 40 mg Lactic Acid (Lac-Hydrin 12% Lotion (225 G)) 1 applic TOP BID [facility] Last Admin: 01/09/19 18:32 Dose: Not Given Metoprolol Tartrate (Lopressor) 100 mg PO Q12 [facility] Last Admin: 01/09/19 21:09 Dose: 100 mg Promethazine HCl/Dextromethorphan (Phenergan Dm Syrup) 10 ml PO Q8 [facility] Last Admin: 01/10/19 00:42 Dose: Not Given Tamsulosin HCl (Flomax) 0.4 mg PO DAILY [facility] Last Admin: 01/09/19 08:49 Dose: 0.4 mg - Labs Labs: 01/07/19 05:55 01/07/19 05:55 PT 14.3 Seconds (9.8-13.1) H 12/31/18 06:00 INR 1.3 12/31/18 06:00 APTT 36.7 Seconds (25.6-37.1) 12/31/18 06:00 Assessment and Plan (1) Acute respiratory failure with hypoxia and hypercapnia Status: Acute (2) Atrial fibrillation with RVR Status: Acute (3) Multifocal pneumonia Status: Acute (4) COPD (chronic obstructive pulmonary disease) Status: Chronic (5) CHF (congestive heart failure) Status: Acute
--- NOTE | 2019-01-10 04:44 | CP.PCM.PN ---
Subjective - Date & Time of Evaluation Date of Evaluation: 01/05/19 Time of Evaluation: 19:25 - Subjective Subjective: Seen and examined the bedside. Continues to be tachycardic. Objective - Vital Signs/Intake and Output Vital Signs (last 24 hours): Temp Pulse Resp BP Pulse Ox 97.9 F 76 18 112/67 96 01/10/19 00:23 01/10/19 00:23 01/10/19 00:23 01/10/19 00:23 01/10/19 00:23 Intake and Output: 01/09/19 01/10/19 18:59 06:59 Intake Total 240 Output Total 1100 Balance -860 - Medications Medications: Current Medications Acetaminophen (Tylenol 325mg Tab) 650 mg PO Q6 PRN PRN Reason: Pain, Mild (1-3) Last Admin: 01/08/19 06:59 Dose: 650 mg Acetaminophen (Tylenol 325mg Tab) 650 mg PO Q4 PRN PRN Reason: Fever >100.4 F Last Admin: 12/31/18 21:23 Dose: 650 mg Albuterol/Ipratropium (Duoneb 3 Mg/0.5 Mg (3 Ml) Ud) 3 ml INH RQID [facility] Last Admin: 01/09/19 19:15 Dose: 3 ml Apixaban (Eliquis) 5 mg PO BID [facility]; Protocol Last Admin: 01/09/19 17:11 Dose: 5 mg Artificial Tears (Artificial Tears) 2 drop OU Q4 PRN PRN Reason: Dry eyes Last Admin: 01/04/19 20:27 Dose: 2 drop Atorvastatin Calcium (Lipitor) 20 mg PO DAILY [facility] Last Admin: 01/09/19 08:50 Dose: 20 mg Diltiazem HCl (Cardizem Cd) 240 mg PO DAILY [facility] Docusate Sodium (Colace Liquid) 100 mg PO BID [facility] Last Admin: 01/09/19 17:10 Dose: 100 mg Famotidine (Pepcid) 40 mg PO HS [facility] Last Admin: 01/09/19 21:08 Dose: 40 mg Furosemide (Lasix) 40 mg PO DAILY [facility] Last Admin: 01/09/19 08:49 Dose: 40 mg Lactic Acid (Lac-Hydrin 12% Lotion (225 G)) 1 applic TOP BID [facility] Last Admin: 01/09/19 18:32 Dose: Not Given Metoprolol Tartrate (Lopressor) 100 mg PO Q12 [facility] Last Admin: 01/09/19 21:09 Dose: 100 mg Promethazine HCl/Dextromethorphan (Phenergan Dm Syrup) 10 ml PO Q8 [facility] Last Admin: 01/10/19 00:42 Dose: Not Given Tamsulosin HCl (Flomax) 0.4 mg PO DAILY [facility] Last Admin: 01/09/19 08:49 Dose: 0.4 mg - Labs Labs: 01/07/19 05:55 01/07/19 05:55 PT 14.3 Seconds (9.8-13.1) H 12/31/18 06:00 INR 1.3 12/31/18 06:00 APTT 36.7 Seconds (25.6-37.1) 12/31/18 06:00 Assessment and Plan (1) Acute respiratory failure with hypoxia and hypercapnia Status: Resolved (2) Atrial fibrillation with RVR Status: Acute (3) Multifocal pneumonia Status: Resolved (4) COPD (chronic obstructive pulmonary disease) Status: Chronic (5) CHF (congestive heart failure) Status: Chronic - Assessment and Plan (Free Text) Plan: Continue current care
--- NOTE | 2019-01-10 04:45 | CP.PCM.PN ---
Subjective - Date & Time of Evaluation Date of Evaluation: 01/07/19 Objective - Vital Signs/Intake and Output Vital Signs (last 24 hours): Temp Pulse Resp BP Pulse Ox 97.9 F 76 18 112/67 96 01/10/19 00:23 01/10/19 00:23 01/10/19 00:23 01/10/19 00:23 01/10/19 00:23 Intake and Output: 01/09/19 01/10/19 18:59 06:59 Intake Total 240 Output Total 1100 Balance -860 - Medications Medications: Current Medications Acetaminophen (Tylenol 325mg Tab) 650 mg PO Q6 PRN PRN Reason: Pain, Mild (1-3) Last Admin: 01/08/19 06:59 Dose: 650 mg Acetaminophen (Tylenol 325mg Tab) 650 mg PO Q4 PRN PRN Reason: Fever >100.4 F Last Admin: 12/31/18 21:23 Dose: 650 mg Albuterol/Ipratropium (Duoneb 3 Mg/0.5 Mg (3 Ml) Ud) 3 ml INH RQID [facility] Last Admin: 01/09/19 19:15 Dose: 3 ml Apixaban (Eliquis) 5 mg PO BID [facility]; Protocol Last Admin: 01/09/19 17:11 Dose: 5 mg Artificial Tears (Artificial Tears) 2 drop OU Q4 PRN PRN Reason: Dry eyes Last Admin: 01/04/19 20:27 Dose: 2 drop Atorvastatin Calcium (Lipitor) 20 mg PO DAILY [facility] Last Admin: 01/09/19 08:50 Dose: 20 mg Diltiazem HCl (Cardizem Cd) 240 mg PO DAILY [facility] Docusate Sodium (Colace Liquid) 100 mg PO BID [facility] Last Admin: 01/09/19 17:10 Dose: 100 mg Famotidine (Pepcid) 40 mg PO HS [facility] Last Admin: 01/09/19 21:08 Dose: 40 mg Furosemide (Lasix) 40 mg PO DAILY [facility] Last Admin: 01/09/19 08:49 Dose: 40 mg Lactic Acid (Lac-Hydrin 12% Lotion (225 G)) 1 applic TOP BID [facility] Last Admin: 01/09/19 18:32 Dose: Not Given Metoprolol Tartrate (Lopressor) 100 mg PO Q12 [facility] Last Admin: 01/09/19 21:09 Dose: 100 mg Promethazine HCl/Dextromethorphan (Phenergan Dm Syrup) 10 ml PO Q8 [facility] Last Admin: 01/10/19 00:42 Dose: Not Given Tamsulosin HCl (Flomax) 0.4 mg PO DAILY [facility] Last Admin: 01/09/19 08:49 Dose: 0.4 mg - Labs Labs: 01/07/19 05:55 01/07/19 05:55 PT 14.3 Seconds (9.8-13.1) H 12/31/18 06:00 INR 1.3 12/31/18 06:00 APTT 36.7 Seconds (25.6-37.1) 12/31/18 06:00 Assessment and Plan (1) Acute respiratory failure with hypoxia and hypercapnia Status: Acute (2) Atrial fibrillation with RVR Status: Acute (3) Multifocal pneumonia Status: Acute (4) COPD (chronic obstructive pulmonary disease) Status: Chronic (5) CHF (congestive heart failure) Status: Acute
--- NOTE | 2019-01-10 04:46 | CP.PCM.PN ---
Subjective - Date & Time of Evaluation Date of Evaluation: 01/08/19 Objective - Vital Signs/Intake and Output Vital Signs (last 24 hours): Temp Pulse Resp BP Pulse Ox 97.9 F 76 18 112/67 96 01/10/19 00:23 01/10/19 00:23 01/10/19 00:23 01/10/19 00:23 01/10/19 00:23 Intake and Output: 01/09/19 01/10/19 18:59 06:59 Intake Total 240 Output Total 1100 Balance -860 - Medications Medications: Current Medications Acetaminophen (Tylenol 325mg Tab) 650 mg PO Q6 PRN PRN Reason: Pain, Mild (1-3) Last Admin: 01/08/19 06:59 Dose: 650 mg Acetaminophen (Tylenol 325mg Tab) 650 mg PO Q4 PRN PRN Reason: Fever >100.4 F Last Admin: 12/31/18 21:23 Dose: 650 mg Albuterol/Ipratropium (Duoneb 3 Mg/0.5 Mg (3 Ml) Ud) 3 ml INH RQID [facility] Last Admin: 01/09/19 19:15 Dose: 3 ml Apixaban (Eliquis) 5 mg PO BID [facility]; Protocol Last Admin: 01/09/19 17:11 Dose: 5 mg Artificial Tears (Artificial Tears) 2 drop OU Q4 PRN PRN Reason: Dry eyes Last Admin: 01/04/19 20:27 Dose: 2 drop Atorvastatin Calcium (Lipitor) 20 mg PO DAILY [facility] Last Admin: 01/09/19 08:50 Dose: 20 mg Diltiazem HCl (Cardizem Cd) 240 mg PO DAILY [facility] Docusate Sodium (Colace Liquid) 100 mg PO BID [facility] Last Admin: 01/09/19 17:10 Dose: 100 mg Famotidine (Pepcid) 40 mg PO HS [facility] Last Admin: 01/09/19 21:08 Dose: 40 mg Furosemide (Lasix) 40 mg PO DAILY [facility] Last Admin: 01/09/19 08:49 Dose: 40 mg Lactic Acid (Lac-Hydrin 12% Lotion (225 G)) 1 applic TOP BID [facility] Last Admin: 01/09/19 18:32 Dose: Not Given Metoprolol Tartrate (Lopressor) 100 mg PO Q12 [facility] Last Admin: 01/09/19 21:09 Dose: 100 mg Promethazine HCl/Dextromethorphan (Phenergan Dm Syrup) 10 ml PO Q8 [facility] Last Admin: 01/10/19 00:42 Dose: Not Given Tamsulosin HCl (Flomax) 0.4 mg PO DAILY [facility] Last Admin: 01/09/19 08:49 Dose: 0.4 mg - Labs Labs: 01/07/19 05:55 01/07/19 05:55 PT 14.3 Seconds (9.8-13.1) H 12/31/18 06:00 INR 1.3 12/31/18 06:00 APTT 36.7 Seconds (25.6-37.1) 12/31/18 06:00 Assessment and Plan (1) Acute respiratory failure with hypoxia and hypercapnia Status: Acute (2) Atrial fibrillation with RVR Status: Acute (3) Multifocal pneumonia Status: Acute (4) COPD (chronic obstructive pulmonary disease) Status: Chronic (5) CHF (congestive heart failure) Status: Acute
--- NOTE | 2019-01-10 04:47 | CP.PCM.PN ---
Subjective - Date & Time of Evaluation Date of Evaluation: 01/09/19 Objective - Vital Signs/Intake and Output Vital Signs (last 24 hours): Temp Pulse Resp BP Pulse Ox 97.9 F 76 18 112/67 96 01/10/19 00:23 01/10/19 00:23 01/10/19 00:23 01/10/19 00:23 01/10/19 00:23 Intake and Output: 01/09/19 01/10/19 18:59 06:59 Intake Total 240 Output Total 1100 Balance -860 - Medications Medications: Current Medications Acetaminophen (Tylenol 325mg Tab) 650 mg PO Q6 PRN PRN Reason: Pain, Mild (1-3) Last Admin: 01/08/19 06:59 Dose: 650 mg Acetaminophen (Tylenol 325mg Tab) 650 mg PO Q4 PRN PRN Reason: Fever >100.4 F Last Admin: 12/31/18 21:23 Dose: 650 mg Albuterol/Ipratropium (Duoneb 3 Mg/0.5 Mg (3 Ml) Ud) 3 ml INH RQID [facility] Last Admin: 01/09/19 19:15 Dose: 3 ml Apixaban (Eliquis) 5 mg PO BID [facility]; Protocol Last Admin: 01/09/19 17:11 Dose: 5 mg Artificial Tears (Artificial Tears) 2 drop OU Q4 PRN PRN Reason: Dry eyes Last Admin: 01/04/19 20:27 Dose: 2 drop Atorvastatin Calcium (Lipitor) 20 mg PO DAILY [facility] Last Admin: 01/09/19 08:50 Dose: 20 mg Diltiazem HCl (Cardizem Cd) 240 mg PO DAILY [facility] Docusate Sodium (Colace Liquid) 100 mg PO BID [facility] Last Admin: 01/09/19 17:10 Dose: 100 mg Famotidine (Pepcid) 40 mg PO HS [facility] Last Admin: 01/09/19 21:08 Dose: 40 mg Furosemide (Lasix) 40 mg PO DAILY [facility] Last Admin: 01/09/19 08:49 Dose: 40 mg Lactic Acid (Lac-Hydrin 12% Lotion (225 G)) 1 applic TOP BID [facility] Last Admin: 01/09/19 18:32 Dose: Not Given Metoprolol Tartrate (Lopressor) 100 mg PO Q12 [facility] Last Admin: 01/09/19 21:09 Dose: 100 mg Promethazine HCl/Dextromethorphan (Phenergan Dm Syrup) 10 ml PO Q8 [facility] Last Admin: 01/10/19 00:42 Dose: Not Given Tamsulosin HCl (Flomax) 0.4 mg PO DAILY [facility] Last Admin: 01/09/19 08:49 Dose: 0.4 mg - Labs Labs: 01/07/19 05:55 01/07/19 05:55 PT 14.3 Seconds (9.8-13.1) H 12/31/18 06:00 INR 1.3 12/31/18 06:00 APTT 36.7 Seconds (25.6-37.1) 12/31/18 06:00 Assessment and Plan (1) Acute respiratory failure with hypoxia and hypercapnia Status: Acute (2) Atrial fibrillation with RVR Status: Acute (3) Multifocal pneumonia Status: Acute (4) COPD (chronic obstructive pulmonary disease) Status: Chronic (5) CHF (congestive heart failure) Status: Acute
[2019-01-10] MEDS: Albuterol-Ipratrop 3 mg / 0.5 (3 ml) UD INH SCH ×2 (08:02→11:28)
[2019-01-10] MEDS: diltiaZEM 240 mg/24 Hours CD Cap PO SCH (08:27)
--- NOTE | 2019-01-10 08:29 | US ---
PROCEDURE: Date of procedure: 01/07/2019 Procedure: 1. Ultrasound-guided left thoracentesis, CPT 55862 Medications: 6cc 1% Lidocaine HISTORY: Left pleural effusion, shortness of breath TECHNIQUE: Following informed consent ,the Patients' left chest was marked. Procedure time-out was called, and the patient was placed in the sitting position and limited ultrasound showed a moderate left effusion. The patient's left back was prepped and draped in the usual sterile fashion. After the skin was anesthetized with lidocaine, a drainage catheter was advanced under ultrasound guidance into the pleural space. Ultrasound-guided thoracentesis was performed. A total of 800 cubic centimeters of straw-colored fluid removed without complication. A Xeroform dressing was applied. IMPRESSION: Ultrasound guided left thoracentesis. There were no immediate complications.
[2019-01-10] MEDS ORDERED: Levalbuterol 0.63 MG/3 ML Inhal Soln UD IH PRN (12:11)
--- NOTE | 2019-01-10 14:18 | CP.PCM.PN ---
Subjective - Date & Time of Evaluation Date of Evaluation: 01/10/19 Time of Evaluation: 13:00 - Subjective Subjective: F/U Pulmonary consult. Pt awake, no A/D, no SOB. Objective - Vital Signs/Intake and Output Vital Signs (last 24 hours): Temp Pulse Resp BP Pulse Ox 97.9 F 126 H 18 115/76 96 01/10/19 12:17 01/10/19 12:17 01/10/19 12:17 01/10/19 12:17 01/10/19 12:17 - Medications Medications: Current Medications Acetaminophen (Tylenol 325mg Tab) 650 mg PO Q6 PRN PRN Reason: Pain, Mild (1-3) Last Admin: 01/08/19 06:59 Dose: 650 mg Acetaminophen (Tylenol 325mg Tab) 650 mg PO Q4 PRN PRN Reason: Fever >100.4 F Last Admin: 12/31/18 21:23 Dose: 650 mg Apixaban (Eliquis) 5 mg PO BID [facility]; Protocol Last Admin: 01/10/19 08:26 Dose: 5 mg Artificial Tears (Artificial Tears) 2 drop OU Q4 PRN PRN Reason: Dry eyes Last Admin: 01/04/19 20:27 Dose: 2 drop Atorvastatin Calcium (Lipitor) 20 mg PO DAILY [facility] Last Admin: 01/10/19 08:25 Dose: 20 mg Diltiazem HCl (Cardizem Cd) 240 mg PO DAILY [facility] Last Admin: 01/10/19 08:27 Dose: 240 mg Docusate Sodium (Colace Liquid) 100 mg PO BID [facility] Last Admin: 01/10/19 08:26 Dose: 100 mg Famotidine (Pepcid) 40 mg PO HS [facility] Last Admin: 01/09/19 21:08 Dose: 40 mg Furosemide (Lasix) 40 mg PO DAILY [facility] Last Admin: 01/10/19 08:25 Dose: 40 mg Lactic Acid (Lac-Hydrin 12% Lotion (225 G)) 1 applic TOP BID [facility] Last Admin: 01/10/19 08:29 Dose: 1 applic Levalbuterol HCl (Xopenex) 0.63 mg IH RTID PRN PRN Reason: Shortness of Breath Metoprolol Tartrate (Lopressor) 100 mg PO Q12 [facility] Last Admin: 01/10/19 08:24 Dose: 100 mg Promethazine HCl/Dextromethorphan (Phenergan Dm Syrup) 10 ml PO Q8 [facility] Last Admin: 01/10/19 08:30 Dose: 10 ml Tamsulosin HCl (Flomax) 0.4 mg PO DAILY [facility] Last Admin: 01/10/19 08:28 Dose: 0.4 mg - Labs Labs: 01/07/19 05:55 01/07/19 05:55 PT 14.3 Seconds (9.8-13.1) H 12/31/18 06:00 INR 1.3 12/31/18 06:00 APTT 36.7 Seconds (25.6-37.1) 12/31/18 06:00 - Constitutional Appears: No Acute Distress - Head Exam Head Exam: NORMAL INSPECTION - Eye Exam Eye Exam: PERRL - ENT Exam ENT Exam: Normal Exam - Neck Exam Neck Exam: Normal Inspection - Respiratory Exam Respiratory Exam: Decreased Breath Sounds (at bases, L>R), Rhonchi (L base) - Cardiovascular Exam Cardiovascular Exam: Irregular Rhythm, Murmur (systolic) - GI/Abdominal Exam GI & Abdominal Exam: Soft, Normal Bowel Sounds - Extremities Exam Additional comments: Trace edema on extremities - Back Exam Back Exam: NORMAL INSPECTION - Neurological Exam Neurological Exam: Alert, Awake, CN II-XII Intact Additional comments: No focal motor/sensory deficit. - Psychiatric Exam Additional comments: Calm. - Skin Skin Exam: Warm Assessment and Plan (1) Aspiration pneumonia of right lung Status: Resolved (2) Multifocal pneumonia Status: Resolved (3) S/P thoracentesis Assessment & Plan: Left Status: Acute (4) Pleural effusion, bilateral Assessment & Plan: trace Right, s/p L Thoracentesis Status: Acute (5) Respiratory failure Status: Resolved (6) COPD (chronic obstructive pulmonary disease) Status: Chronic (7) Atrial fibrillation with RVR Status: Acute (8) Anemia Status: Acute - Assessment and Plan (Free Text) Plan: DC Duoneb 2nd to tachycardia, start Xopenex, still with A Fib, HR increased
--- NOTE | 2019-01-10 17:59 | CP.PCM.PN ---
Subjective - Date & Time of Evaluation Date of Evaluation: 01/10/19 Time of Evaluation: 17:57 - Subjective Subjective: PTS HR REMAINS ELEVATED. PTS BP AROUND 116 SYSTOLIC. PT DENIES CP, SOB, OR COUGH. Objective - Vital Signs/Intake and Output Vital Signs (last 24 hours): Temp Pulse Resp BP Pulse Ox 98.9 F 98 H 20 103/77 95 01/10/19 15:34 01/10/19 15:34 01/10/19 15:34 01/10/19 15:34 01/10/19 15:34 - Medications Medications: Current Medications Acetaminophen (Tylenol 325mg Tab) 650 mg PO Q6 PRN PRN Reason: Pain, Mild (1-3) Last Admin: 01/08/19 06:59 Dose: 650 mg Acetaminophen (Tylenol 325mg Tab) 650 mg PO Q4 PRN PRN Reason: Fever >100.4 F Last Admin: 12/31/18 21:23 Dose: 650 mg Apixaban (Eliquis) 5 mg PO BID [facility]; Protocol Last Admin: 01/10/19 16:41 Dose: 5 mg Artificial Tears (Artificial Tears) 2 drop OU Q4 PRN PRN Reason: Dry eyes Last Admin: 01/04/19 20:27 Dose: 2 drop Atorvastatin Calcium (Lipitor) 20 mg PO DAILY [facility] Last Admin: 01/10/19 08:25 Dose: 20 mg Diltiazem HCl (Cardizem Cd) 240 mg PO DAILY [facility] Last Admin: 01/10/19 08:27 Dose: 240 mg Docusate Sodium (Colace Liquid) 100 mg PO BID [facility] Last Admin: 01/10/19 16:41 Dose: 100 mg Famotidine (Pepcid) 40 mg PO HS [facility] Last Admin: 01/09/19 21:08 Dose: 40 mg Furosemide (Lasix) 40 mg PO DAILY [facility] Last Admin: 01/10/19 08:25 Dose: 40 mg Lactic Acid (Lac-Hydrin 12% Lotion (225 G)) 1 applic TOP BID [facility] Last Admin: 01/10/19 16:41 Dose: 1 applic Levalbuterol HCl (Xopenex) 0.63 mg IH RTID PRN PRN Reason: Shortness of Breath Metoprolol Tartrate (Lopressor) 100 mg PO Q12 [facility] Last Admin: 01/10/19 08:24 Dose: 100 mg Promethazine HCl/Dextromethorphan (Phenergan Dm Syrup) 10 ml PO Q8 [facility] Last Admin: 01/10/19 16:42 Dose: 10 ml Tamsulosin HCl (Flomax) 0.4 mg PO DAILY [facility] Last Admin: 01/10/19 08:28 Dose: 0.4 mg - Labs Labs: 01/07/19 05:55 01/07/19 05:55 PT 14.3 Seconds (9.8-13.1) H 12/31/18 06:00 INR 1.3 12/31/18 06:00 APTT 36.7 Seconds (25.6-37.1) 12/31/18 06:00 - Constitutional Appears: Non-toxic - Head Exam Head Exam: ATRAUMATIC, NORMAL INSPECTION, NORMOCEPHALIC - Eye Exam Eye Exam: EOMI, Normal appearance, PERRL. absent: Conjunctival injection, Nystagmus, Periorbital swelling, Periorbital tenderness, Scleral icterus Pupil Exam: NORMAL ACCOMODATION, PERRL - ENT Exam ENT Exam: Mucous Membranes Moist, Normal Exam. absent: Mucous Membranes Dry, Normal External Ear Exam, Normal Oropharynx, TM's Normal Bilaterally - Neck Exam Neck Exam: Full ROM, Normal Inspection. absent: Lymphadenopathy, Meningismus, Tenderness, Thyromegaly - Respiratory Exam Respiratory Exam: Clear to Ausculation Bilateral, NORMAL BREATHING PATTERN. absent: Accessory Muscle Use, Chest Wall Tenderness, Decreased Breath Sounds, Prolonged Expiratory Phase, Rales, Rhonchi, Wheezes, Respiratory Distress, Stridor - Cardiovascular Exam Cardiovascular Exam: Tachycardia, Irregular Rhythm, +S1, +S2, Murmur. absent: Bradycardia, Clicks, Diastolic murmur, Gallop, REGULAR RHYTHM, JVD, RRR, Rubs, +S4 - GI/Abdominal Exam GI & Abdominal Exam: Soft, Normal Bowel Sounds. absent: Bruit, Distended, Firm, Guarding, Rigid, Tenderness, Diminished Bowel Sounds, Hernia, Hyperactive Bowel Sounds, Hypoactive Bowel Sounds, Organomegaly, Pulsatile Mass, Rebound, Mass - Rectal Exam Rectal Exam: Deferred - Extremities Exam Extremities Exam: Full ROM, Normal Capillary Refill, Normal Inspection. absent: Calf Tenderness, Joint Swelling, Pedal Edema, Tenderness - Back Exam Back Exam: NORMAL INSPECTION. absent: CVA tenderness (L), CVA tenderness (R), Full ROM, muscle spasm, paraspinal tenderness, rash noted, tenderness, vertebral tenderness - Neurological Exam Neurological Exam: Alert, Awake, CN II-XII Intact, Oriented x3 - Psychiatric Exam Psychiatric exam: Normal Affect, Normal Mood. absent: Agitated, Anxious, Depressed, Flat Affect, Homicidal Ideation, Manic, Suicidal Ideation - Skin Skin Exam: Dry, Intact, Normal Color, Warm. absent: Abrasion, Cyanosis, Diaphoretic, Erythema, Mottled, Pallor, Pallor, Petechiae, Rash, Urticaria, Vesicles Assessment and Plan (1) Atrial fibrillation with RVR Status: Acute (2) Multifocal pneumonia Status: Resolved (3) Altered mental status Status: Resolved (4) SOB (shortness of breath) Status: Resolved (5) Cough Status: Acute (6) Depression (emotion) Status: Resolved (7) Prerenal azotemia Status: Chronic (8) Anxiety Status: Suspected (9) Edema Status: Acute (10) Hypotension (arterial) Status: Resolved (11) Respiratory failure Status: Resolved - Assessment and Plan (Free Text) Plan: CHANGE TO TOPROL XL TO 100 MG PO Q12 RECHECK LYTES PT OT PTS HR IS STILL ELEVATED AT REST AND WITH MOTION. 45 MIN TOTAL CARE TIME.
[2019-01-10] MEDS: Metoprolol Succinate 100 mg XL Tab PO SCH (21:18)
[2019-01-11] MEDS: Promethazine DM 12.5 mg-30 mg/10 ml Syrup PO SCH ×3 (02:17→17:39)
[2019-01-11 05:38] LABS: HEMOGLOBIN 9.2 g/dL (12.0-18.0); MEAN CELL VOLUME 99.5 fl (80.0-94.0); MEAN CORPUSCULAR HEMOGLOBIN 33.3 pg (27.0-31.0); MEAN CORPUSCULAR HGB CONC 33.5 g/dL (33.0-37.0); RBC 2.76 Mil/uL (4.40-5.90); RED CELL DISTRIBUTION WIDTH 15.5 % (11.5-14.5); WHITE BLOOD COUNT 7.2 K/uL (4.8-10.8)
[2019-01-11 05:57] LABS: BLOOD UREA NITROGEN 30 mg/dl (9-20); CALCIUM 8.8 mg/dL (8.4-10.2); GFR NON-AFRICAN AMERICAN 59
[2019-01-11] MEDS: Artificial Tears Opht Soln OU PRN ×2 (09:06→17:40)
[2019-01-11] MEDS: Metoprolol Succinate 100 mg XL Tab PO SCH ×2 (09:16→21:21)
[2019-01-11] MEDS: diltiaZEM 240 mg/24 Hours CD Cap PO SCH (09:17)
[2019-01-12] MEDS: Promethazine DM 12.5 mg-30 mg/10 ml Syrup PO SCH ×3 (00:22→17:12)
--- NOTE | 2019-01-12 00:23 | CP.PCM.PN ---
Subjective - Date & Time of Evaluation Date of Evaluation: 01/10/19 Objective - Vital Signs/Intake and Output Vital Signs (last 24 hours): Temp Pulse Resp BP Pulse Ox 97.9 F 86 18 105/69 96 01/11/19 23:57 01/11/19 23:57 01/11/19 23:57 01/11/19 23:57 01/11/19 23:57 - Medications Medications: Current Medications Acetaminophen (Tylenol 325mg Tab) 650 mg PO Q6 PRN PRN Reason: Pain, Mild (1-3) Last Admin: 01/08/19 06:59 Dose: 650 mg Acetaminophen (Tylenol 325mg Tab) 650 mg PO Q4 PRN PRN Reason: Fever >100.4 F Last Admin: 12/31/18 21:23 Dose: 650 mg Apixaban (Eliquis) 5 mg PO BID [facility]; Protocol Last Admin: 01/11/19 17:40 Dose: 5 mg Artificial Tears (Artificial Tears) 2 drop OU Q4 PRN PRN Reason: Dry eyes Last Admin: 01/11/19 17:40 Dose: 2 drop Atorvastatin Calcium (Lipitor) 20 mg PO DAILY [facility] Last Admin: 01/11/19 09:18 Dose: 20 mg Diltiazem HCl (Cardizem Cd) 240 mg PO DAILY [facility] Last Admin: 01/11/19 09:17 Dose: 240 mg Docusate Sodium (Colace Liquid) 100 mg PO BID [facility] Last Admin: 01/11/19 17:39 Dose: 100 mg Famotidine (Pepcid) 40 mg PO HS [facility] Last Admin: 01/11/19 21:21 Dose: 40 mg Furosemide (Lasix) 40 mg PO DAILY [facility] Last Admin: 01/11/19 09:18 Dose: 40 mg Lactic Acid (Lac-Hydrin 12% Lotion (225 G)) 1 applic TOP BID [facility] Last Admin: 01/11/19 17:39 Dose: 1 applic Levalbuterol HCl (Xopenex) 0.63 mg IH RTID PRN PRN Reason: Shortness of Breath Metoprolol Succinate (Toprol Xl) 100 mg PO Q12 [facility] Last Admin: 01/11/19 21:21 Dose: 100 mg Promethazine HCl/Dextromethorphan (Phenergan Dm Syrup) 10 ml PO Q8 [facility] Last Admin: 01/12/19 00:22 Dose: Not Given Tamsulosin HCl (Flomax) 0.4 mg PO DAILY [facility] Last Admin: 01/11/19 09:16 Dose: 0.4 mg - Labs Labs: 01/11/19 04:55 01/11/19 04:55 PT 14.3 Seconds (9.8-13.1) H 12/31/18 06:00 INR 1.3 12/31/18 06:00 APTT 36.7 Seconds (25.6-37.1) 12/31/18 06:00 Assessment and Plan (1) Acute respiratory failure with hypoxia and hypercapnia Status: Acute (2) Atrial fibrillation with RVR Status: Acute (3) Multifocal pneumonia Status: Resolved (4) COPD (chronic obstructive pulmonary disease) Status: Chronic (5) CHF (congestive heart failure) Status: Acute
--- NOTE | 2019-01-12 00:24 | CP.PCM.PN ---
Subjective - Date & Time of Evaluation Date of Evaluation: 01/11/19 Objective - Vital Signs/Intake and Output Vital Signs (last 24 hours): Temp Pulse Resp BP Pulse Ox 97.9 F 86 18 105/69 96 01/11/19 23:57 01/11/19 23:57 01/11/19 23:57 01/11/19 23:57 01/11/19 23:57 - Medications Medications: Current Medications Acetaminophen (Tylenol 325mg Tab) 650 mg PO Q6 PRN PRN Reason: Pain, Mild (1-3) Last Admin: 01/08/19 06:59 Dose: 650 mg Acetaminophen (Tylenol 325mg Tab) 650 mg PO Q4 PRN PRN Reason: Fever >100.4 F Last Admin: 12/31/18 21:23 Dose: 650 mg Apixaban (Eliquis) 5 mg PO BID [facility]; Protocol Last Admin: 01/11/19 17:40 Dose: 5 mg Artificial Tears (Artificial Tears) 2 drop OU Q4 PRN PRN Reason: Dry eyes Last Admin: 01/11/19 17:40 Dose: 2 drop Atorvastatin Calcium (Lipitor) 20 mg PO DAILY [facility] Last Admin: 01/11/19 09:18 Dose: 20 mg Diltiazem HCl (Cardizem Cd) 240 mg PO DAILY [facility] Last Admin: 01/11/19 09:17 Dose: 240 mg Docusate Sodium (Colace Liquid) 100 mg PO BID [facility] Last Admin: 01/11/19 17:39 Dose: 100 mg Famotidine (Pepcid) 40 mg PO HS [facility] Last Admin: 01/11/19 21:21 Dose: 40 mg Furosemide (Lasix) 40 mg PO DAILY [facility] Last Admin: 01/11/19 09:18 Dose: 40 mg Lactic Acid (Lac-Hydrin 12% Lotion (225 G)) 1 applic TOP BID [facility] Last Admin: 01/11/19 17:39 Dose: 1 applic Levalbuterol HCl (Xopenex) 0.63 mg IH RTID PRN PRN Reason: Shortness of Breath Metoprolol Succinate (Toprol Xl) 100 mg PO Q12 [facility] Last Admin: 01/11/19 21:21 Dose: 100 mg Promethazine HCl/Dextromethorphan (Phenergan Dm Syrup) 10 ml PO Q8 [facility] Last Admin: 01/12/19 00:22 Dose: Not Given Tamsulosin HCl (Flomax) 0.4 mg PO DAILY [facility] Last Admin: 01/11/19 09:16 Dose: 0.4 mg - Labs Labs: 01/11/19 04:55 01/11/19 04:55 PT 14.3 Seconds (9.8-13.1) H 12/31/18 06:00 INR 1.3 12/31/18 06:00 APTT 36.7 Seconds (25.6-37.1) 12/31/18 06:00 Assessment and Plan (1) Acute respiratory failure with hypoxia and hypercapnia Status: Acute (2) Atrial fibrillation with RVR Status: Acute (3) Multifocal pneumonia Status: Resolved (4) COPD (chronic obstructive pulmonary disease) Status: Chronic (5) CHF (congestive heart failure) Status: Acute
[2019-01-12] MEDS: diltiaZEM 240 mg/24 Hours CD Cap PO SCH (08:47)
[2019-01-12] MEDS: Metoprolol Succinate 100 mg XL Tab PO SCH ×2 (08:49→21:30)
--- NOTE | 2019-01-12 13:45 | CP.PCM.PN ---
Subjective - Date & Time of Evaluation Date of Evaluation: 01/12/19 Time of Evaluation: 10:40 - Subjective Subjective: F/U Pulmonary consult Objective - Vital Signs/Intake and Output Vital Signs (last 24 hours): Temp Pulse Resp BP Pulse Ox 97.6 F 94 H 18 112/74 98 01/12/19 12:01 01/12/19 12:01 01/12/19 12:01 01/12/19 12:01 01/12/19 12:01 - Medications Medications: Current Medications Acetaminophen (Tylenol 325mg Tab) 650 mg PO Q6 PRN PRN Reason: Pain, Mild (1-3) Last Admin: 01/08/19 06:59 Dose: 650 mg Acetaminophen (Tylenol 325mg Tab) 650 mg PO Q4 PRN PRN Reason: Fever >100.4 F Last Admin: 12/31/18 21:23 Dose: 650 mg Apixaban (Eliquis) 5 mg PO BID [facility]; Protocol Last Admin: 01/12/19 08:51 Dose: 5 mg Artificial Tears (Artificial Tears) 2 drop OU Q4 PRN PRN Reason: Dry eyes Last Admin: 01/11/19 17:40 Dose: 2 drop Atorvastatin Calcium (Lipitor) 20 mg PO DAILY [facility] Last Admin: 01/12/19 08:52 Dose: 20 mg Diltiazem HCl (Cardizem Cd) 240 mg PO DAILY [facility] Last Admin: 01/12/19 08:47 Dose: 240 mg Docusate Sodium (Colace Liquid) 100 mg PO BID [facility] Last Admin: 01/12/19 08:43 Dose: 100 mg Famotidine (Pepcid) 40 mg PO HS [facility] Last Admin: 01/11/19 21:21 Dose: 40 mg Furosemide (Lasix) 40 mg PO DAILY [facility] Last Admin: 01/12/19 08:45 Dose: 40 mg Lactic Acid (Lac-Hydrin 12% Lotion (225 G)) 1 applic TOP BID [facility] Last Admin: 01/12/19 08:46 Dose: 1 applic Levalbuterol HCl (Xopenex) 0.63 mg IH RTID PRN PRN Reason: Shortness of Breath Metoprolol Succinate (Toprol Xl) 100 mg PO Q12 [facility] Last Admin: 01/12/19 08:49 Dose: 100 mg Promethazine HCl/Dextromethorphan (Phenergan Dm Syrup) 10 ml PO Q8 [facility] Last Admin: 01/12/19 08:49 Dose: 10 ml Tamsulosin HCl (Flomax) 0.4 mg PO DAILY [facility] Last Admin: 01/12/19 08:50 Dose: 0.4 mg - Labs Labs: 01/11/19 04:55 01/11/19 04:55 PT 14.3 Seconds (9.8-13.1) H 12/31/18 06:00 INR 1.3 12/31/18 06:00 APTT 36.7 Seconds (25.6-37.1) 12/31/18 06:00 - Constitutional Appears: No Acute Distress - Head Exam Head Exam: NORMAL INSPECTION - Eye Exam Eye Exam: PERRL - ENT Exam ENT Exam: Normal Exam - Neck Exam Neck Exam: Normal Inspection - Respiratory Exam Respiratory Exam: Decreased Breath Sounds (at bases), Rhonchi (L base) - Cardiovascular Exam Cardiovascular Exam: Irregular Rhythm, Murmur (systolic) - GI/Abdominal Exam GI & Abdominal Exam: Soft, Normal Bowel Sounds - Extremities Exam Additional comments: 1+ non pitting edema BLE - Back Exam Back Exam: NORMAL INSPECTION - Neurological Exam Neurological Exam: Alert, Oriented x3 Additional comments: No focal motor/sensory deficit. - Skin Skin Exam: Warm Assessment and Plan (1) Aspiration pneumonia of right lung Status: Acute (2) Multifocal pneumonia Status: Resolved (3) S/P thoracentesis Status: Acute (4) Pleural effusion, bilateral Status: Acute (5) Respiratory failure Status: Resolved (6) COPD (chronic obstructive pulmonary disease) Status: Chronic (7) Atrial fibrillation with RVR Status: Acute (8) Anemia Status: Acute
--- NOTE | 2019-01-12 16:06 | CP.PCM.PN ---
Subjective - Date & Time of Evaluation Date of Evaluation: 01/12/19 Time of Evaluation: 16:04 - Subjective Subjective: pt without complaints. Pts hr in 160 with minimal ambulation today. bp running low. Objective - Vital Signs/Intake and Output Vital Signs (last 24 hours): Temp Pulse Resp BP Pulse Ox 97.2 F L 110 H 18 117/70 95 01/12/19 15:55 01/12/19 15:55 01/12/19 15:55 01/12/19 15:55 01/12/19 15:55 - Medications Medications: Current Medications Acetaminophen (Tylenol 325mg Tab) 650 mg PO Q6 PRN PRN Reason: Pain, Mild (1-3) Last Admin: 01/08/19 06:59 Dose: 650 mg Acetaminophen (Tylenol 325mg Tab) 650 mg PO Q4 PRN PRN Reason: Fever >100.4 F Last Admin: 12/31/18 21:23 Dose: 650 mg Apixaban (Eliquis) 5 mg PO BID [facility]; Protocol Last Admin: 01/12/19 08:51 Dose: 5 mg Artificial Tears (Artificial Tears) 2 drop OU Q4 PRN PRN Reason: Dry eyes Last Admin: 01/11/19 17:40 Dose: 2 drop Atorvastatin Calcium (Lipitor) 20 mg PO DAILY [facility] Last Admin: 01/12/19 08:52 Dose: 20 mg Diltiazem HCl (Cardizem Cd) 240 mg PO DAILY [facility] Last Admin: 01/12/19 08:47 Dose: 240 mg Docusate Sodium (Colace Liquid) 100 mg PO BID [facility] Last Admin: 01/12/19 08:43 Dose: 100 mg Famotidine (Pepcid) 40 mg PO HS [facility] Last Admin: 01/11/19 21:21 Dose: 40 mg Furosemide (Lasix) 40 mg PO DAILY [facility] Last Admin: 01/12/19 08:45 Dose: 40 mg Sodium Chloride (Sodium Chloride 0.9%) 500 mls @ 100 mls/hr IV .Q5H [facility] Stop: 01/12/19 21:14 Lactic Acid (Lac-Hydrin 12% Lotion (225 G)) 1 applic TOP BID [facility] Last Admin: 01/12/19 08:46 Dose: 1 applic Levalbuterol HCl (Xopenex) 0.63 mg IH RTID PRN PRN Reason: Shortness of Breath Metoprolol Succinate (Toprol Xl) 100 mg PO Q12 [facility] Last Admin: 01/12/19 08:49 Dose: 100 mg Promethazine HCl/Dextromethorphan (Phenergan Dm Syrup) 10 ml PO Q8 [facility] Last Admin: 01/12/19 08:49 Dose: 10 ml Tamsulosin HCl (Flomax) 0.4 mg PO DAILY [facility] Last Admin: 01/12/19 08:50 Dose: 0.4 mg - Labs Labs: 01/11/19 04:55 01/11/19 04:55 PT 14.3 Seconds (9.8-13.1) H 12/31/18 06:00 INR 1.3 12/31/18 06:00 APTT 36.7 Seconds (25.6-37.1) 12/31/18 06:00 - Constitutional Appears: Non-toxic - Head Exam Head Exam: ATRAUMATIC, NORMAL INSPECTION, NORMOCEPHALIC - Eye Exam Eye Exam: EOMI, Normal appearance, PERRL. absent: Conjunctival injection, Nystagmus, Periorbital swelling, Periorbital tenderness, Scleral icterus Pupil Exam: NORMAL ACCOMODATION, PERRL - ENT Exam ENT Exam: Mucous Membranes Moist, Normal Exam. absent: Mucous Membranes Dry, Normal External Ear Exam, Normal Oropharynx, TM's Normal Bilaterally - Neck Exam Neck Exam: Full ROM, Normal Inspection. absent: Lymphadenopathy, Meningismus, Tenderness, Thyromegaly - Respiratory Exam Respiratory Exam: Clear to Ausculation Bilateral, NORMAL BREATHING PATTERN. absent: Accessory Muscle Use, Chest Wall Tenderness, Decreased Breath Sounds, Prolonged Expiratory Phase, Rales, Rhonchi, Wheezes, Respiratory Distress, Stridor - Cardiovascular Exam Cardiovascular Exam: Tachycardia, Irregular Rhythm, +S1, +S2, Murmur. absent: Bradycardia, Clicks, Diastolic murmur, Gallop, REGULAR RHYTHM, JVD, RRR, Rubs, +S4 - GI/Abdominal Exam GI & Abdominal Exam: Soft, Normal Bowel Sounds. absent: Bruit, Distended, Firm, Guarding, Rigid, Tenderness, Diminished Bowel Sounds, Hernia, Hyperactive Bowel Sounds, Hypoactive Bowel Sounds, Organomegaly, Pulsatile Mass, Rebound, Mass - Rectal Exam Rectal Exam: Deferred - Extremities Exam Extremities Exam: Full ROM, Normal Capillary Refill, Normal Inspection. absent: Calf Tenderness, Joint Swelling, Pedal Edema, Tenderness - Back Exam Back Exam: NORMAL INSPECTION. absent: CVA tenderness (L), CVA tenderness (R), Full ROM, muscle spasm, paraspinal tenderness, rash noted, tenderness, vertebral tenderness - Neurological Exam Neurological Exam: Alert, Awake, CN II-XII Intact, Normal Gait, Oriented x3. absent: Abnormal Gait, Altered, Motor Sensory Deficit, Reflexes Normal - Psychiatric Exam Psychiatric exam: Normal Affect, Normal Mood. absent: Agitated, Anxious, Depressed, Flat Affect, Homicidal Ideation, Manic, Suicidal Ideation - Skin Skin Exam: Dry, Intact, Normal Color, Warm. absent: Abrasion, Cyanosis, Diaphoretic, Erythema, Mottled, Pallor, Pallor, Petechiae, Rash, Urticaria, Vesicles Assessment and Plan (1) Prerenal azotemia Status: Chronic (2) Hypotension (arterial) Status: Resolved (3) Atrial fibrillation with RVR Status: Acute (4) Altered mental status Status: Resolved (5) SOB (shortness of breath) Status: Resolved (6) Cough Status: Resolved (7) Anxiety Status: Suspected (8) Edema Status: Resolved (9) Respiratory failure Status: Resolved (10) Multifocal pneumonia Status: Resolved - Assessment and Plan (Free Text) Plan: Pts hr response is at least partially due to dehydration and low bp. will give ns 500cc at 100 cc/hr. stop lasix. pt is taking in minimal po. cont q12 toprol xl and cardizem. 45 min total care time.
[2019-01-12] MEDS ORDERED: Sodium Chloride 0.9% 500 ML IV SCH (16:15)
[2019-01-13] MEDS: Promethazine DM 12.5 mg-30 mg/10 ml Syrup PO SCH ×3 (00:31→16:49)
[2019-01-13 06:03] LABS: HEMOGLOBIN 9.3 g/dL (12.0-18.0); MEAN CELL VOLUME 100.7 fl (80.0-94.0); MEAN CORPUSCULAR HEMOGLOBIN 33.6 pg (27.0-31.0); MEAN CORPUSCULAR HGB CONC 33.4 g/dL (33.0-37.0); RBC 2.77 Mil/uL (4.40-5.90); RED CELL DISTRIBUTION WIDTH 15.8 % (11.5-14.5); WHITE BLOOD COUNT 5.1 K/uL (4.8-10.8)
[2019-01-13 06:15] LABS: BLOOD UREA NITROGEN 24 mg/dl (9-20); CALCIUM 8.5 mg/dL (8.4-10.2); GFR NON-AFRICAN AMERICAN > 60
[2019-01-13] MEDS: Metoprolol Succinate 100 mg XL Tab PO SCH (09:06)
[2019-01-13] MEDS: diltiaZEM 240 mg/24 Hours CD Cap PO SCH (09:06)
[2019-01-13] MEDS: Sodium Chloride 0.9% 500 ML IV SCH ×3 (16:48→21:46)
[2019-01-13] MEDS ORDERED: Potassium Chloride 20 mEq ER Tab PO ONE (17:52)
[2019-01-13] MEDS ORDERED: Digoxin 0.05 mg/mL Elixir 5mL PO ONE (17:55)
[2019-01-13] MEDS ORDERED: Magnesium Sulfate 2 gm/50 ml 2 GM/50 ML BAG IVPB ONE (18:00)
--- NOTE | 2019-01-13 18:01 | CP.PCM.PN ---
Subjective - Date & Time of Evaluation Date of Evaluation: 01/13/19 Time of Evaluation: 17:59 - Subjective Subjective: continued rapid afib with ambulation. it is however improved from yesterday. PT COMPLAINING OF SIG DYSPNEA WITH MINIMAL MOVEMENT. NO CP. NO LH OR DIZZINES. Objective - Vital Signs/Intake and Output Vital Signs (last 24 hours): Temp Pulse Resp BP Pulse Ox 97.6 F 105 H 18 124/67 98 01/13/19 15:47 01/13/19 15:47 01/13/19 15:47 01/13/19 15:47 01/13/19 15:47 - Medications Medications: Current Medications Acetaminophen (Tylenol 325mg Tab) 650 mg PO Q6 PRN PRN Reason: Pain, Mild (1-3) Last Admin: 01/08/19 06:59 Dose: 650 mg Acetaminophen (Tylenol 325mg Tab) 650 mg PO Q4 PRN PRN Reason: Fever >100.4 F Last Admin: 12/31/18 21:23 Dose: 650 mg Apixaban (Eliquis) 5 mg PO BID [facility]; Protocol Last Admin: 01/13/19 16:49 Dose: 5 mg Artificial Tears (Artificial Tears) 2 drop OU Q4 PRN PRN Reason: Dry eyes Last Admin: 01/11/19 17:40 Dose: 2 drop Atorvastatin Calcium (Lipitor) 20 mg PO DAILY [facility] Last Admin: 01/13/19 09:07 Dose: 20 mg Digoxin (Lanoxin) 0.25 mg PO ONCE ONE Stop: 01/14/19 03:01 Digoxin (Lanoxin Elixir Soln) 0.5 mg PO ONCE ONE Stop: 01/13/19 17:56 Digoxin (Lanoxin) 0.25 mg PO ONCE ONE Stop: 01/14/19 12:01 Digoxin (Lanoxin Elixir Soln) 0.25 mg PO DAILY [facility] Diltiazem HCl (Cardizem Cd) 240 mg PO DAILY [facility] Last Admin: 01/13/19 09:06 Dose: 240 mg Docusate Sodium (Colace Liquid) 100 mg PO BID [facility] Last Admin: 01/13/19 16:49 Dose: Not Given Famotidine (Pepcid) 40 mg PO [facility] Last Admin: 01/12/19 21:30 Dose: 40 mg Sodium Chloride (Sodium Chloride 0.9%) 500 mls @ 100 mls/hr IV .Q5H [facility] Last Admin: 01/13/19 16:48 Dose: 100 mls/hr Magnesium Sulfate (Magnesium Sulfate 2 Gm/50 Ml Water) 2 gm in 50 mls @ 50 mls/hr IVPB ONCE ONE Stop: 01/13/19 18:59 Lactic Acid (Lac-Hydrin 12% Lotion (225 G)) 1 applic TOP BID [facility] Last Admin: 01/13/19 16:49 Dose: 1 applic Levalbuterol HCl (Xopenex) 0.63 mg IH RTID PRN PRN Reason: Shortness of Breath Metoprolol Tartrate (Lopressor) 50 mg PO Q6 [facility] Promethazine HCl/Dextromethorphan (Phenergan Dm Syrup) 10 ml PO Q8 [facility] Last Admin: 01/13/19 16:49 Dose: 10 ml Tamsulosin HCl (Flomax) 0.4 mg PO DAILY [facility] Last Admin: 01/13/19 09:06 Dose: 0.4 mg - Labs Labs: 01/13/19 04:25 01/13/19 04:25 PT 14.3 Seconds (9.8-13.1) H 12/31/18 06:00 INR 1.3 12/31/18 06:00 APTT 36.7 Seconds (25.6-37.1) 12/31/18 06:00 - Constitutional Appears: Non-toxic - Head Exam Head Exam: ATRAUMATIC, NORMAL INSPECTION, NORMOCEPHALIC - Eye Exam Eye Exam: EOMI, Normal appearance, PERRL. absent: Conjunctival injection, Nystagmus, Periorbital swelling, Periorbital tenderness, Scleral icterus Pupil Exam: NORMAL ACCOMODATION, PERRL - ENT Exam ENT Exam: Mucous Membranes Dry, Normal Exam. absent: Normal External Ear Exam, Normal Oropharynx, TM's Normal Bilaterally - Neck Exam Neck Exam: Full ROM, Normal Inspection - Respiratory Exam Respiratory Exam: Clear to Ausculation Bilateral, NORMAL BREATHING PATTERN. absent: Accessory Muscle Use, Chest Wall Tenderness, Decreased Breath Sounds, Prolonged Expiratory Phase, Rales, Rhonchi, Wheezes, Respiratory Distress, Stridor - Cardiovascular Exam Cardiovascular Exam: Tachycardia, Irregular Rhythm, +S1, +S2, Murmur. absent: Bradycardia, Clicks, Diastolic murmur, Gallop, REGULAR RHYTHM, JVD, RRR, Rubs, +S4 - GI/Abdominal Exam GI & Abdominal Exam: Soft, Normal Bowel Sounds. absent: Bruit, Distended, Firm, Guarding, Rigid, Tenderness, Diminished Bowel Sounds, Hernia, Hyperactive Bowel Sounds, Hypoactive Bowel Sounds, Organomegaly, Pulsatile Mass, Rebound, Mass - Rectal Exam Rectal Exam: Deferred - Extremities Exam Extremities Exam: Full ROM, Normal Capillary Refill, Normal Inspection. absent: Calf Tenderness, Joint Swelling, Pedal Edema, Tenderness - Back Exam Back Exam: NORMAL INSPECTION. absent: CVA tenderness (L), CVA tenderness (R), Full ROM, muscle spasm, paraspinal tenderness, rash noted, tenderness, vertebral tenderness - Neurological Exam Neurological Exam: Alert, Awake, CN II-XII Intact, Normal Gait, Oriented x3. absent: Abnormal Gait, Altered, Motor Sensory Deficit, Reflexes Normal - Psychiatric Exam Psychiatric exam: Normal Affect, Normal Mood. absent: Agitated, Anxious, Depressed, Flat Affect, Homicidal Ideation, Manic, Suicidal Ideation - Skin Skin Exam: Dry, Intact, Normal Color, Warm. absent: Abrasion, Cyanosis, Diaphoretic, Erythema, Mottled, Pallor, Pallor, Petechiae, Rash, Urticaria, Vesicles Assessment and Plan (1) Prerenal azotemia Status: Acute (2) Hypotension (arterial) Status: Acute (3) Atrial fibrillation with RVR Status: Acute (4) Altered mental status Status: Resolved (5) SOB (shortness of breath) Status: Resolved (6) Cough Status: Resolved (7) Anxiety Status: Suspected (8) Edema Status: Resolved (9) Respiratory failure Status: Resolved (10) Multifocal pneumonia Status: Resolved - Assessment and Plan (Free Text) Plan: STOP TOPROL XL and START metoprolol tart 50 po q6, add digoxin (will load and daily 0.25MG PO). give ivf 1L. monitor UO AND BP. give kcl 40 meq and mag 2 gm iv x 1 now. check lytes in am. KEEP MAG > 2 AND k AROUND 4.5. 45 min total care time.
[2019-01-14] MEDS: Promethazine DM 12.5 mg-30 mg/10 ml Syrup PO SCH ×5 (00:18→17:15)
[2019-01-14] MEDS ORDERED: Digoxin 250 mcg (0.25 mg) Tab PO ONE ×2 (03:00→12:00)
[2019-01-14 05:54] LABS: ALB/GLOB RATIO 0.9 (1.0-2.1); ALBUMIN 3.1 g/dL (3.5-5.0); ALT/SGPT 37 U/L (21-72); AST/SGOT 34 U/L (17-59); BLOOD UREA NITROGEN 22 mg/dl (9-20); CALCIUM 8.5 mg/dL (8.4-10.2); GFR NON-AFRICAN AMERICAN > 60
--- NOTE | 2019-01-14 09:06 | CP.PCM.PN ---
Subjective - Date & Time of Evaluation Date of Evaluation: 01/14/19 Time of Evaluation: 09:06 - Subjective Subjective: CONTINUED RAPID HR. INFORMED CONSENT OBTAINED FOR [facility] CV Objective - Vital Signs/Intake and Output Vital Signs (last 24 hours): Temp Pulse Resp BP Pulse Ox 98.0 F 88 18 132/86 100 01/14/19 07:58 01/14/19 07:58 01/14/19 07:58 01/14/19 07:58 01/14/19 07:58 - Medications Medications: Current Medications Acetaminophen (Tylenol 325mg Tab) 650 mg PO Q6 PRN PRN Reason: Pain, Mild (1-3) Last Admin: 01/08/19 06:59 Dose: 650 mg Acetaminophen (Tylenol 325mg Tab) 650 mg PO Q4 PRN PRN Reason: Fever >100.4 F Last Admin: 12/31/18 21:23 Dose: 650 mg Apixaban (Eliquis) 5 mg PO BID [facility]; Protocol Last Admin: 01/13/19 16:49 Dose: 5 mg Artificial Tears (Artificial Tears) 2 drop OU Q4 PRN PRN Reason: Dry eyes Last Admin: 01/11/19 17:40 Dose: 2 drop Atorvastatin Calcium (Lipitor) 20 mg PO DAILY [facility] Last Admin: 01/13/19 09:07 Dose: 20 mg Digoxin (Lanoxin) 0.25 mg PO ONCE ONE Stop: 01/14/19 12:01 Digoxin (Lanoxin Elixir Soln) 0.25 mg PO DAILY [facility] Diltiazem HCl (Cardizem Cd) 240 mg PO DAILY [facility] Last Admin: 01/13/19 09:06 Dose: 240 mg Docusate Sodium (Colace Liquid) 100 mg PO BID [facility] Last Admin: 01/13/19 16:49 Dose: Not Given Famotidine (Pepcid) 40 mg PO HS [facility] Last Admin: 01/13/19 21:41 Dose: 40 mg Sodium Chloride (Sodium Chloride 0.9%) 500 mls @ 100 mls/hr IV .Q5H [facility] Last Admin: 01/13/19 21:46 Dose: 100 mls/hr Lactic Acid (Lac-Hydrin 12% Lotion (225 G)) 1 applic TOP BID [facility] Last Admin: 01/13/19 16:49 Dose: 1 applic Levalbuterol HCl (Xopenex) 0.63 mg IH RTID PRN PRN Reason: Shortness of Breath Metoprolol Tartrate (Lopressor) 50 mg PO Q6 [facility] Last Admin: 01/14/19 05:10 Dose: 50 mg Promethazine HCl/Dextromethorphan (Phenergan Dm Syrup) 10 ml PO Q8 [facility] Last Admin: 01/14/19 00:18 Dose: Not Given Tamsulosin HCl (Flomax) 0.4 mg PO DAILY [facility] Last Admin: 01/13/19 09:06 Dose: 0.4 mg - Labs Labs: 01/13/19 04:25 01/14/19 05:05 PT 14.3 Seconds (9.8-13.1) H 12/31/18 06:00 INR 1.3 12/31/18 06:00 APTT 36.7 Seconds (25.6-37.1) 12/31/18 06:00 - Constitutional Appears: Well - Head Exam Head Exam: ATRAUMATIC, NORMAL INSPECTION, NORMOCEPHALIC - Eye Exam Eye Exam: EOMI, Normal appearance, PERRL. absent: Conjunctival injection, Nystagmus, Periorbital swelling, Periorbital tenderness, Scleral icterus Pupil Exam: NORMAL ACCOMODATION, PERRL - ENT Exam ENT Exam: Mucous Membranes Moist, Normal Exam. absent: Mucous Membranes Dry, Normal External Ear Exam, Normal Oropharynx, TM's Normal Bilaterally - Neck Exam Neck Exam: Full ROM, Normal Inspection. absent: Lymphadenopathy, Meningismus, Tenderness, Thyromegaly - Respiratory Exam Respiratory Exam: Clear to Ausculation Bilateral, NORMAL BREATHING PATTERN. absent: Accessory Muscle Use, Chest Wall Tenderness, Decreased Breath Sounds, Prolonged Expiratory Phase, Rales, Rhonchi, Wheezes, Respiratory Distress, Stridor - Cardiovascular Exam Cardiovascular Exam: Tachycardia, Irregular Rhythm, +S1, +S2, Murmur. absent: Bradycardia, Clicks, Diastolic murmur, Gallop, REGULAR RHYTHM, JVD, RRR, Rubs, +S4 - GI/Abdominal Exam GI & Abdominal Exam: Soft, Normal Bowel Sounds. absent: Bruit, Distended, Firm, Guarding, Rigid, Tenderness, Diminished Bowel Sounds, Hernia, Hyperactive Bowel Sounds, Hypoactive Bowel Sounds, Organomegaly, Pulsatile Mass, Rebound, Mass - Rectal Exam Rectal Exam: Deferred - Extremities Exam Extremities Exam: Full ROM, Normal Capillary Refill, Normal Inspection. absent: Calf Tenderness, Joint Swelling, Pedal Edema, Tenderness - Back Exam Back Exam: NORMAL INSPECTION. absent: CVA tenderness (L), CVA tenderness (R), Full ROM, muscle spasm, paraspinal tenderness, rash noted, tenderness, vertebral tenderness - Neurological Exam Neurological Exam: Alert, Awake, CN II-XII Intact, Normal Gait, Oriented x3. absent: Abnormal Gait, Altered, Motor Sensory Deficit, Reflexes Normal - Psychiatric Exam Psychiatric exam: Normal Affect, Normal Mood. absent: Agitated, Anxious, Depressed, Flat Affect, Homicidal Ideation, Manic, Suicidal Ideation - Skin Skin Exam: Dry, Intact, Normal Color, Warm. absent: Abrasion, Cyanosis, Diaphoretic, Erythema, Mottled, Pallor, Pallor, Petechiae, Rash, Urticaria, Vesicles Assessment and Plan (1) Prerenal azotemia Status: Chronic (2) Hypotension (arterial) Status: Resolved (3) Atrial fibrillation with RVR Status: Acute (4) Altered mental status Status: Resolved (5) SOB (shortness of breath) Status: Resolved (6) Cough Status: Resolved (7) Anxiety Status: Suspected (8) Edema Status: Resolved (9) Respiratory failure Status: Resolved (10) Multifocal pneumonia Status: Resolved - Assessment and Plan (Free Text) Plan: [facility] REVEALS MOD MR WITH AFIB. NML EF. NO JARON THROMBUS. NO PFO. CV X 1 SUCCESSFUL IN CONVERTING TO SR. PT GIVEN AMIODARONE 150MG BOLUS X 1. NOW WILL START AMIODARONE IV. ONCE FULLY LOADED THEN WILL SWITCH TO PO. STOP DIG. CONT CARDIZEM AND METOPROLOL. 75 MIN TOTAL CARE TIME.
[2019-01-14] MEDS: diltiaZEM 240 mg/24 Hours CD Cap PO SCH ×2 (09:22→10:06)
--- NOTE | 2019-01-14 11:05 | CP.PCM.PN ---
Subjective - Date & Time of Evaluation Date of Evaluation: 01/12/19 Objective - Vital Signs/Intake and Output Vital Signs (last 24 hours): Temp Pulse Resp BP Pulse Ox 98.0 F 88 18 132/86 100 01/14/19 07:58 01/14/19 10:24 01/14/19 07:58 01/14/19 10:24 01/14/19 07:58 - Medications Medications: Current Medications Acetaminophen (Tylenol 325mg Tab) 650 mg PO Q6 PRN PRN Reason: Pain, Mild (1-3) Last Admin: 01/08/19 06:59 Dose: 650 mg Acetaminophen (Tylenol 325mg Tab) 650 mg PO Q4 PRN PRN Reason: Fever >100.4 F Last Admin: 12/31/18 21:23 Dose: 650 mg Apixaban (Eliquis) 5 mg PO BID [facility]; Protocol Last Admin: 01/13/19 16:49 Dose: 5 mg Artificial Tears (Artificial Tears) 2 drop OU Q4 PRN PRN Reason: Dry eyes Last Admin: 01/11/19 17:40 Dose: 2 drop Atorvastatin Calcium (Lipitor) 20 mg PO DAILY [facility] Last Admin: 01/13/19 09:07 Dose: 20 mg Digoxin (Lanoxin) 0.25 mg PO ONCE ONE Stop: 01/14/19 12:01 Digoxin (Lanoxin Elixir Soln) 0.25 mg PO DAILY [facility] Diltiazem HCl (Cardizem Cd) 240 mg PO DAILY [facility] Last Admin: 01/14/19 10:06 Dose: 240 mg Docusate Sodium (Colace Liquid) 100 mg PO BID [facility] Last Admin: 01/14/19 10:14 Dose: Not Given Famotidine (Pepcid) 40 mg PO HS [facility] Last Admin: 01/13/19 21:41 Dose: 40 mg Lactic Acid (Lac-Hydrin 12% Lotion (225 G)) 1 applic TOP BID [facility] Last Admin: 01/14/19 09:25 Dose: 1 applic Levalbuterol HCl (Xopenex) 0.63 mg IH RTID PRN PRN Reason: Shortness of Breath Metoprolol Tartrate (Lopressor) 50 mg PO Q6 [facility] Last Admin: 01/14/19 10:24 Dose: 50 mg Promethazine HCl/Dextromethorphan (Phenergan Dm Syrup) 10 ml PO Q8 [facility] Last Admin: 01/14/19 10:14 Dose: Not Given Tamsulosin HCl (Flomax) 0.4 mg PO DAILY [facility] Last Admin: 01/14/19 10:15 Dose: 0.4 mg - Labs Labs: 01/13/19 04:25 01/14/19 05:05 PT 14.3 Seconds (9.8-13.1) H 12/31/18 06:00 INR 1.3 12/31/18 06:00 APTT 36.7 Seconds (25.6-37.1) 12/31/18 06:00 Assessment and Plan (1) Acute respiratory failure with hypoxia and hypercapnia Status: Acute (2) Atrial fibrillation with RVR Status: Acute (3) Multifocal pneumonia Status: Resolved (4) COPD (chronic obstructive pulmonary disease) Status: Chronic (5) CHF (congestive heart failure) Status: Acute
--- NOTE | 2019-01-14 11:08 | CP.PCM.PN ---
Subjective - Date & Time of Evaluation Date of Evaluation: 01/13/19 Time of Evaluation: 14:30 - Subjective Subjective: Seen and examined at the bedside. Patient continues to be Tachycardic and palpitations. Discussed with cardiology will adjust medication with addition of Digoxin unchanging with Metoprolol Succinate XL to metoprolol Tartrate. Objective - Vital Signs/Intake and Output Vital Signs (last 24 hours): Temp Pulse Resp BP Pulse Ox 98.0 F 88 18 132/86 100 01/14/19 07:58 01/14/19 10:24 01/14/19 07:58 01/14/19 10:24 01/14/19 07:58 - Medications Medications: Current Medications Acetaminophen (Tylenol 325mg Tab) 650 mg PO Q6 PRN PRN Reason: Pain, Mild (1-3) Last Admin: 01/08/19 06:59 Dose: 650 mg Acetaminophen (Tylenol 325mg Tab) 650 mg PO Q4 PRN PRN Reason: Fever >100.4 F Last Admin: 12/31/18 21:23 Dose: 650 mg Apixaban (Eliquis) 5 mg PO BID [facility]; Protocol Last Admin: 01/13/19 16:49 Dose: 5 mg Artificial Tears (Artificial Tears) 2 drop OU Q4 PRN PRN Reason: Dry eyes Last Admin: 01/11/19 17:40 Dose: 2 drop Atorvastatin Calcium (Lipitor) 20 mg PO DAILY [facility] Last Admin: 01/13/19 09:07 Dose: 20 mg Digoxin (Lanoxin) 0.25 mg PO ONCE ONE Stop: 01/14/19 12:01 Digoxin (Lanoxin Elixir Soln) 0.25 mg PO DAILY [facility] Diltiazem HCl (Cardizem Cd) 240 mg PO DAILY [facility] Last Admin: 01/14/19 10:06 Dose: 240 mg Docusate Sodium (Colace Liquid) 100 mg PO BID [facility] Last Admin: 01/14/19 10:14 Dose: Not Given Famotidine (Pepcid) 40 mg PO HS [facility] Last Admin: 01/13/19 21:41 Dose: 40 mg Lactic Acid (Lac-Hydrin 12% Lotion (225 G)) 1 applic TOP BID [facility] Last Admin: 01/14/19 09:25 Dose: 1 applic Levalbuterol HCl (Xopenex) 0.63 mg IH RTID PRN PRN Reason: Shortness of Breath Metoprolol Tartrate (Lopressor) 50 mg PO Q6 [facility] Last Admin: 01/14/19 10:24 Dose: 50 mg Promethazine HCl/Dextromethorphan (Phenergan Dm Syrup) 10 ml PO Q8 [facility] Last Admin: 01/14/19 10:14 Dose: Not Given Tamsulosin HCl (Flomax) 0.4 mg PO DAILY [facility] Last Admin: 01/14/19 10:15 Dose: 0.4 mg - Labs Labs: 01/13/19 04:25 01/14/19 05:05 PT 14.3 Seconds (9.8-13.1) H 12/31/18 06:00 INR 1.3 12/31/18 06:00 APTT 36.7 Seconds (25.6-37.1) 12/31/18 06:00 Assessment and Plan (1) Acute respiratory failure with hypoxia and hypercapnia Status: Resolved (2) Atrial fibrillation with RVR Status: Acute (3) Multifocal pneumonia Status: Resolved (4) COPD (chronic obstructive pulmonary disease) Status: Chronic (5) CHF (congestive heart failure) Status: Chronic (6) Physical deconditioning Status: Acute - Assessment and Plan (Free Text) Plan: Continue metoprolol Tartrate for and Digoxin Fringe Maker patient will need Cardioversion after SADIQ Continue anticoagulation Patient may need PT and OT
--- NOTE | 2019-01-14 11:13 | CP.PCM.PN ---
Subjective - Date & Time of Evaluation Date of Evaluation: 01/14/19 Time of Evaluation: 11:00 Objective - Vital Signs/Intake and Output Vital Signs (last 24 hours): Temp Pulse Resp BP Pulse Ox 98.0 F 88 18 132/86 100 01/14/19 07:58 01/14/19 10:24 01/14/19 07:58 01/14/19 10:24 01/14/19 07:58 - Medications Medications: Current Medications Acetaminophen (Tylenol 325mg Tab) 650 mg PO Q6 PRN PRN Reason: Pain, Mild (1-3) Last Admin: 01/08/19 06:59 Dose: 650 mg Acetaminophen (Tylenol 325mg Tab) 650 mg PO Q4 PRN PRN Reason: Fever >100.4 F Last Admin: 12/31/18 21:23 Dose: 650 mg Apixaban (Eliquis) 5 mg PO BID [facility]; Protocol Last Admin: 01/13/19 16:49 Dose: 5 mg Artificial Tears (Artificial Tears) 2 drop OU Q4 PRN PRN Reason: Dry eyes Last Admin: 01/11/19 17:40 Dose: 2 drop Atorvastatin Calcium (Lipitor) 20 mg PO DAILY [facility] Last Admin: 01/13/19 09:07 Dose: 20 mg Digoxin (Lanoxin) 0.25 mg PO ONCE ONE Stop: 01/14/19 12:01 Digoxin (Lanoxin Elixir Soln) 0.25 mg PO DAILY [facility] Diltiazem HCl (Cardizem Cd) 240 mg PO DAILY [facility] Last Admin: 01/14/19 10:06 Dose: 240 mg Docusate Sodium (Colace Liquid) 100 mg PO BID [facility] Last Admin: 01/14/19 10:14 Dose: Not Given Famotidine (Pepcid) 40 mg PO HS [facility] Last Admin: 01/13/19 21:41 Dose: 40 mg Lactic Acid (Lac-Hydrin 12% Lotion (225 G)) 1 applic TOP BID [facility] Last Admin: 01/14/19 09:25 Dose: 1 applic Levalbuterol HCl (Xopenex) 0.63 mg IH RTID PRN PRN Reason: Shortness of Breath Metoprolol Tartrate (Lopressor) 50 mg PO Q6 [facility] Last Admin: 01/14/19 10:24 Dose: 50 mg Promethazine HCl/Dextromethorphan (Phenergan Dm Syrup) 10 ml PO Q8 [facility] Last Admin: 01/14/19 10:14 Dose: Not Given Tamsulosin HCl (Flomax) 0.4 mg PO DAILY [facility] Last Admin: 01/14/19 10:15 Dose: 0.4 mg - Labs Labs: 01/13/19 04:25 01/14/19 05:05 PT 14.3 Seconds (9.8-13.1) H 12/31/18 06:00 INR 1.3 12/31/18 06:00 APTT 36.7 Seconds (25.6-37.1) 12/31/18 06:00 Assessment and Plan (1) Acute respiratory failure with hypoxia and hypercapnia Status: Resolved (2) Atrial fibrillation with RVR Status: Acute (3) Multifocal pneumonia Status: Resolved (4) COPD (chronic obstructive pulmonary disease) Status: Chronic (5) CHF (congestive heart failure) Status: Chronic (6) Physical deconditioning Status: Acute
[2019-01-14] MEDS ORDERED: Lidocaine 2% MPF (5 ml) Inj ONE (12:55)
[2019-01-14] MEDS ORDERED: Succinylcholine Chloride 20 mg/ml Syr (5 ml) IV ONE (12:55)
[2019-01-14] MEDS ORDERED: Etomidate 20 mg/10ml Inj IV ONE (12:55)
[2019-01-14] MEDS ORDERED: Propofol 10 mg/ml Inj (20 ML) ONE (12:55)
[2019-01-14 13:08] VITALS: PULSE 87
[2019-01-14] MEDS ORDERED: Amiodarone 150mg/3 ml vial ONE (14:00)
[2019-01-14] MEDS ORDERED: Amiodarone 150 MG in Sodium Chloride 0.9% 100 ML IV ONE (14:35)
[2019-01-14] MEDS ORDERED: Sodium Chloride 0.9% 1,000 ML IV ONE (14:45)
[2019-01-14] MEDS ORDERED: Amiodarone 150 mg/D5W 100 ml 150 MG/100 ML BAG IV ONE (14:53)
[2019-01-14] MEDS ORDERED: Lactated Ringer's 1,000 ML IV SCH (15:00)
[2019-01-14] MEDS: Amiodarone 450 MG in Sodium Chloride 0.9% 250 ML IVPB SCH ×2 (15:50→21:50)
[2019-01-14] MEDS ORDERED: Lactated Ringer's 1,000 ML IV ONE (16:00)
--- NOTE | 2019-01-14 16:16 | CP.PCM.PN ---
Objective - Vital Signs/Intake and Output Vital Signs (last 24 hours): Temp Pulse Resp BP Pulse Ox 98.1 F 72 19 136/82 100 01/14/19 15:45 01/14/19 15:45 01/14/19 15:45 01/14/19 15:45 01/14/19 15:45 Intake and Output: 01/14/19 01/14/19 06:59 18:59 Intake Total 0 Balance 0 - Medications Medications: Current Medications Acetaminophen (Tylenol 325mg Tab) 650 mg PO Q6 PRN PRN Reason: Pain, Mild (1-3) Last Admin: 01/08/19 06:59 Dose: 650 mg Acetaminophen (Tylenol 325mg Tab) 650 mg PO Q4 PRN PRN Reason: Fever >100.4 F Last Admin: 12/31/18 21:23 Dose: 650 mg Apixaban (Eliquis) 5 mg PO BID [facility]; Protocol Last Admin: 01/14/19 11:22 Dose: 5 mg Artificial Tears (Artificial Tears) 2 drop OU Q4 PRN PRN Reason: Dry eyes Last Admin: 01/11/19 17:40 Dose: 2 drop Atorvastatin Calcium (Lipitor) 20 mg PO DAILY [facility] Last Admin: 01/14/19 13:08 Dose: Not Given Diltiazem HCl (Cardizem Cd) 240 mg PO DAILY [facility] Last Admin: 01/14/19 10:06 Dose: 240 mg Docusate Sodium (Colace Liquid) 100 mg PO BID [facility] Last Admin: 01/14/19 10:14 Dose: Not Given Famotidine (Pepcid) 40 mg PO HS [facility] Last Admin: 01/13/19 21:41 Dose: 40 mg Amiodarone HCl 450 mg/ Sodium (Chloride) 259 mls @ 34.53 mls/hr IVPB .Q7H31M S ; Protocol Last Admin: 01/14/19 15:50 Dose: 0 mls Lactated Ringer's (Lactated Ringer's) 1,000 mls @ 100 mls/hr IV .Q10H [facility] Lactic Acid (Lac-Hydrin 12% Lotion (225 G)) 1 applic TOP BID [facility] Last Admin: 01/14/19 09:25 Dose: 1 applic Levalbuterol HCl (Xopenex) 0.63 mg IH RTID PRN PRN Reason: Shortness of Breath Metoprolol Tartrate (Lopressor) 50 mg PO Q6 [facility] Last Admin: 01/14/19 10:24 Dose: 50 mg Ondansetron HCl (Zofran Inj) 4 mg IVP ONCE PRN PRN Reason: Nausea/Vomiting Stop: 01/14/19 16:57 Promethazine HCl/Dextromethorphan (Phenergan Dm Syrup) 10 ml PO Q8 [facility] Last Admin: 01/14/19 10:14 Dose: Not Given Tamsulosin HCl (Flomax) 0.4 mg PO DAILY [facility] Last Admin: 01/14/19 10:15 Dose: 0.4 mg - Labs Labs: 01/13/19 04:25 01/14/19 05:05 PT 14.3 Seconds (9.8-13.1) H 12/31/18 06:00 INR 1.3 12/31/18 06:00 APTT 36.7 Seconds (25.6-37.1) 12/31/18 06:00 Assessment and Plan (1) Aspiration pneumonia of right lung Status: Resolved (2) Multifocal pneumonia Status: Resolved (3) S/P thoracentesis Status: Acute (4) Pleural effusion, bilateral Status: Acute (5) Respiratory failure Status: Resolved (6) COPD (chronic obstructive pulmonary disease) Status: Chronic (7) Atrial fibrillation with RVR Status: Acute (8) Anemia Status: Acute
[2019-01-15] MEDS: Promethazine DM 12.5 mg-30 mg/10 ml Syrup PO SCH ×3 (01:00→16:29)
[2019-01-15] MEDS: Amiodarone 450 MG in Sodium Chloride 0.9% 250 ML IVPB SCH (01:43)
[2019-01-15 04:59] LABS: HEMOGLOBIN 9.4 g/dL (12.0-18.0); MEAN CELL VOLUME 97.8 fl (80.0-94.0); MEAN CORPUSCULAR HEMOGLOBIN 32.5 pg (27.0-31.0); MEAN CORPUSCULAR HGB CONC 33.2 g/dL (33.0-37.0); RBC 2.89 Mil/uL (4.40-5.90); RED CELL DISTRIBUTION WIDTH 15.3 % (11.5-14.5); WHITE BLOOD COUNT 4.9 K/uL (4.8-10.8)
[2019-01-15 05:09] LABS: BLOOD UREA NITROGEN 25 mg/dl (9-20); CALCIUM 8.6 mg/dL (8.4-10.2); GFR NON-AFRICAN AMERICAN 59
[2019-01-15] MEDS: diltiaZEM 240 mg/24 Hours CD Cap PO SCH (08:17)
[2019-01-15] MEDS ORDERED: Digoxin 0.05 mg/mL Elixir 5mL PO SCH (09:00)
--- NOTE | 2019-01-15 19:13 | CP.PCM.PN ---
Subjective - Date & Time of Evaluation Date of Evaluation: 01/15/19 Time of Evaluation: 19:13 - Subjective Subjective: PT SEEN AND EXAMINED IN THE ICU. DENIES CP, PALP, LH, DIZZINESS, SORE THROAT, DIFFICULTY SWALLOWING. PT IS SP SADIQ AND SUCCESSFUL CV. PT NOW ON AMIODARONE. Objective - Vital Signs/Intake and Output Vital Signs (last 24 hours): Temp Pulse Resp BP Pulse Ox 98 F 69 15 125/74 97 01/15/19 17:00 01/15/19 17:00 01/15/19 17:00 01/15/19 17:00 01/15/19 13:00 Intake and Output: 01/15/19 01/16/19 18:59 06:59 Intake Total 620 Output Total 1200 Balance -580 - Medications Medications: Current Medications Acetaminophen (Tylenol 325mg Tab) 650 mg PO Q6 PRN PRN Reason: Pain, Mild (1-3) Last Admin: 01/08/19 06:59 Dose: 650 mg Acetaminophen (Tylenol 325mg Tab) 650 mg PO Q4 PRN PRN Reason: Fever >100.4 F Last Admin: 12/31/18 21:23 Dose: 650 mg Amiodarone HCl (Cordarone) 200 mg PO Q12 [facility] Artificial Tears (Artificial Tears) 2 drop OU Q4 PRN PRN Reason: Dry eyes Last Admin: 01/11/19 17:40 Dose: 2 drop Atorvastatin Calcium (Lipitor) 20 mg PO DAILY [facility] Last Admin: 01/15/19 08:19 Dose: 20 mg Diltiazem HCl (Cardizem Cd) 240 mg PO DAILY [facility] Last Admin: 01/15/19 08:17 Dose: 240 mg Docusate Sodium (Colace Liquid) 100 mg PO BID [facility] Last Admin: 01/15/19 16:28 Dose: Not Given Famotidine (Pepcid) 40 mg PO HS [facility] Last Admin: 01/14/19 21:13 Dose: 40 mg Amiodarone HCl 450 mg/ Sodium (Chloride) 259 mls @ 34.53 mls/hr IVPB .Q7H31M [facility]; Protocol Last Admin: 01/15/19 01:43 Dose: 16.7 mls/hr Lactic Acid (Lac-Hydrin 12% Lotion (225 G)) 1 applic TOP BID [facility] Last Admin: 01/15/19 16:29 Dose: Not Given Levalbuterol HCl (Xopenex) 0.63 mg IH RTID PRN PRN Reason: Shortness of Breath Metoprolol Tartrate (Lopressor) 50 mg PO Q6 [facility] Last Admin: 01/15/19 16:30 Dose: 50 mg Promethazine HCl/Dextromethorphan (Phenergan Dm Syrup) 10 ml PO Q8 [facility] Last Admin: 01/15/19 16:29 Dose: Not Given Tamsulosin HCl (Flomax) 0.4 mg PO DAILY [facility] Last Admin: 01/15/19 08:18 Dose: 0.4 mg - Labs Labs: 01/15/19 04:45 01/15/19 04:45 PT 14.3 Seconds (9.8-13.1) H 12/31/18 06:00 INR 1.3 12/31/18 06:00 APTT 36.7 Seconds (25.6-37.1) 12/31/18 06:00 - Constitutional Appears: Well - Head Exam Head Exam: ATRAUMATIC, NORMAL INSPECTION, NORMOCEPHALIC - Eye Exam Eye Exam: EOMI, Normal appearance, PERRL. absent: Conjunctival injection, Nystagmus, Periorbital swelling, Periorbital tenderness, Scleral icterus Pupil Exam: NORMAL ACCOMODATION, PERRL - ENT Exam ENT Exam: Mucous Membranes Moist, Normal Exam. absent: Mucous Membranes Dry, Normal External Ear Exam, Normal Oropharynx, TM's Normal Bilaterally - Neck Exam Neck Exam: Full ROM, Normal Inspection. absent: Lymphadenopathy, Meningismus, Tenderness, Thyromegaly - Respiratory Exam Respiratory Exam: Clear to Ausculation Bilateral, NORMAL BREATHING PATTERN. absent: Accessory Muscle Use, Chest Wall Tenderness, Decreased Breath Sounds, Prolonged Expiratory Phase, Rales, Rhonchi, Wheezes, Respiratory Distress, Stridor - Cardiovascular Exam Cardiovascular Exam: REGULAR RHYTHM, +S1, +S2, Murmur. absent: Bradycardia, Tachycardia, Clicks, Diastolic murmur, Gallop, Irregular Rhythm, JVD, RRR, Rubs, +S4 - GI/Abdominal Exam GI & Abdominal Exam: Soft, Normal Bowel Sounds. absent: Bruit, Distended, Firm, Guarding, Rigid, Tenderness, Diminished Bowel Sounds, Hernia, Hyperactive Bowel Sounds, Hypoactive Bowel Sounds, Organomegaly, Pulsatile Mass, Rebound, Mass - Rectal Exam Rectal Exam: Deferred - Extremities Exam Extremities Exam: Full ROM, Normal Capillary Refill, Normal Inspection. absent: Calf Tenderness, Joint Swelling, Pedal Edema, Tenderness - Back Exam Back Exam: NORMAL INSPECTION. absent: CVA tenderness (L), CVA tenderness (R), Full ROM, muscle spasm, paraspinal tenderness, rash noted, tenderness, vertebral tenderness - Neurological Exam Neurological Exam: Alert, Awake, CN II-XII Intact, Normal Gait, Oriented x3. absent: Abnormal Gait, Altered, Motor Sensory Deficit, Reflexes Normal - Psychiatric Exam Psychiatric exam: Normal Affect, Normal Mood. absent: Agitated, Anxious, Depressed, Flat Affect, Homicidal Ideation, Manic, Suicidal Ideation - Skin Skin Exam: Dry, Intact, Normal Color, Warm. absent: Abrasion, Cyanosis, Diaphoretic, Erythema, Mottled, Pallor, Pallor, Petechiae, Rash, Urticaria, Vesicles Assessment and Plan (1) Prerenal azotemia Status: Resolved (2) Hypotension (arterial) Status: Resolved (3) Atrial fibrillation with RVR Status: Resolved (4) Altered mental status Status: Resolved (5) SOB (shortness of breath) Status: Resolved (6) Cough Status: Resolved (7) Anxiety Status: Suspected (8) Edema Status: Resolved (9) Respiratory failure Status: Resolved (10) Multifocal pneumonia Status: Resolved - Assessment and Plan (Free Text) Plan: PT SEEN AND EXAMINED IN ICU. PT DOING MUCH BETTER POST CV. IV AMIODARONE LOADING IS COMPLETE. WILL START AMIO 200MG PO Q12. MONITOR REVEALS SR WITH OCCASIONAL PACS. NO HEART BLOCK OR NELDA. WOULD CONTINUE CCB AND METOPROLOL AT THIS POINT. DISCUSSED THE NEED FOR STRICT COMPLIANCE WITH ORAL ANTICOAG AFTER CV. PT IS AWARE OF THE RISK OF STROKE OR IF HE DOES NOT TAKE HIS BLOOD THINNERS. PT IS STABLE FOR TRANSFER TO [facility] STABLE FOR PT/OT. LYTES REVIEWED AND STABLE. WOULD KEEP MAG ABOVE 2 AND K ABOVE 4. 65 MIN TOTAL CARE AND TIME SPENT WITH PT.
[2019-01-16] MEDS: Promethazine DM 12.5 mg-30 mg/10 ml Syrup PO SCH ×3 (01:02→16:38)
[2019-01-16] MEDS: Amiodarone 450 MG in Sodium Chloride 0.9% 250 ML IVPB SCH (04:59)
[2019-01-16 06:30] LABS: HEMOGLOBIN 9.4 g/dL (12.0-18.0); MEAN CELL VOLUME 97.9 fl (80.0-94.0); MEAN CORPUSCULAR HEMOGLOBIN 32.1 pg (27.0-31.0); MEAN CORPUSCULAR HGB CONC 32.8 g/dL (33.0-37.0); RBC 2.93 Mil/uL (4.40-5.90); RED CELL DISTRIBUTION WIDTH 15.2 % (11.5-14.5); WHITE BLOOD COUNT 5.6 K/uL (4.8-10.8)
[2019-01-16 06:41] LABS: BLOOD UREA NITROGEN 24 mg/dl (9-20); CALCIUM 8.8 mg/dL (8.4-10.2); GFR NON-AFRICAN AMERICAN > 60
[2019-01-16] MEDS: diltiaZEM 240 mg/24 Hours CD Cap PO SCH (08:56)
--- NOTE | 2019-01-16 17:42 | PN ---
DATE: 01/16/2019 CRITICAL CARE PROGRESS NOTE LOCATION: The patient in ICU, bed 422. TIME SPENT: 25 minutes. The patient is seen and evaluated at the bedside. Past medical, surgical, family, social history reviewed. SUBJECTIVE:. A 73-year-old male with history significant for hypertension, hyperlipidemia, chronic atrial fibrillation, chronic systolic heart failure. Admitted with progressively worsening shortness of breath associated with atrial fibrillation, rapid ventricular response, intubated, placed on mechanical ventilation and extubated. Readmitted to ICU because of rapid ventricular response status post cardioversion postop day 2. Overnight on p.o. amiodarone preceded by loading dose. Telemetry sinus rhythm, rate controlled, normotensive, afebrile. PHYSICAL EXAMINATION: GENERAL: This morning, alert, awake, follows commands appropriate. Denies shortness of breath, chest pain, palpitation. Appetite improved, tolerating p.o. feeds. No melena. VITAL SIGNS: Temperature 97.8; heart rate 78 regular; blood pressure 143/79; respiratory rate of 14, thoracoabdominal; saturation 98% oxygen on room air. Intake 930, output 2425, negative balance 1495. Weight 185 pounds. HEAD, EYES, EARS, NOSE, AND THROAT: Pupils are reactive. Conjunctivae pink. Sclerae are white. NECK: Supple. Trachea central. CHEST: Bilateral breath sounds. Expiration prolonged, clear to auscultation anteriorly and laterally. HEART: Rhythm regular. S1, S2 normal intensity. No S3, S4 gallop. No audible murmur. ABDOMEN: Bowel sounds present. Soft. Liver and spleen not palpable. Bladder not distended. EXTREMITIES: No clubbing, cyanosis, trace edema. DP palpable. SKIN: Sacral area unchanged. NEUROLOGIC: Nonfocal. CURRENT MEDICATIONS: Tylenol 650 every 6 hours p.r.n., amiodarone 200 mg p.o. every 12 hours, Altace 5 mg p.o. twice daily, artificial tears 2 drop OU every 4 hours, Cardizem 240 mg p.o. daily, Colace 100 mg p.o. twice daily, Pepcid 40 mg p.o. h.s., Lac-Hydrin 12% lotion one application topically twice daily, Xopenex 0.63 mg three times daily, metoprolol 50 mg p.o. every 6 hours, Phenergan with DM 10 mL p.o. every 8 hours, Flomax 0.4 mg p.o. daily. LABORATORY DATA: WBC 5.6, hemoglobin 9.4, hematocrit 28.7, platelet count of 287. PT of 14.5, INR 1.3, PTT 36.7. SMA-7; sodium 138, potassium 4.1, chloride 106, CO2 25, blood urea nitrogen 924, creatinine 1, random glucose 187, calcium 8.8. AST 34, ALT 37, alkaline phosphatase 134, total protein 6.5, albumin 3.1. Urinalysis negative. Pleural fluid analysis; WBC 144, RBC 10,800, neutrophils 27, lymphocytes 30, monocytes of 43, glucose 104, total protein 1.1, LDH 211, amylase less than 30. Stool occult blood repeat on 01/11 negative. Cold agglutinins negative. Hepatitis A, B and C negative. Microbiology, nasal MRSA negative. Blood culture no growth reported. Urine culture no growth reported. Chest x-ray on 01/07 improvement aeration left lung following left thoracentesis and pneumothorax. Echocardiogram done on 01/14 report pending. IMPRESSION: 1. Neurologic: Alert and awake. Follows commands appropriate. No acute issues noted. 2. Cardiac: Chronic atrial fibrillation status post cardioversion, in sinus rhythm. Continue anticoagulation and amiodarone. 3. Pulmonary: Pleural effusion, status post left thoracentesis. Fluid consistent with transudate except for increased LDH. 4. GI: No acute issues. Stool guaiac negative. 5. Endocrinology: No acute issues noted. 6. Renal: No acute issues. 7.Hematology: anemia of chronic disease. H?H stable. 8.ID: no acute issues Keep head of bed 30 degrees up. Continue Eliquis. May transfer to telemetry floor. Emanuel Bello MD MTDKay
[2019-01-17] MEDS: Promethazine DM 12.5 mg-30 mg/10 ml Syrup PO SCH ×3 (00:21→17:22)
[2019-01-17] MEDS: diltiaZEM 240 mg/24 Hours CD Cap PO SCH (08:58)
--- NOTE | 2019-01-17 09:16 | CARD ---
APPROVED REPORT Date of service: 01/14/2019 EKG Measurement Heart [id number] <Conclusion> Normal sinus rhythm Incomplete right bundle branch block Nonspecific T wave abnormality Abnormal ECG
[2019-01-17] MEDS ORDERED: Amiodarone 900 MG in Dextrose 5% In Water 500 ML IVPB SCH (13:42)
[2019-01-17] MEDS ORDERED: Amiodarone 150 mg/D5W 100 ml 150 MG/100 ML BAG IV ONE (14:15)
[2019-01-17] MEDS ORDERED: Magnesium Sulfate 1 gm in D5W 1 GM/100 ML BAG IVPB SCH (15:00)
[2019-01-18] MEDS: Promethazine DM 12.5 mg-30 mg/10 ml Syrup PO SCH ×3 (00:24→16:32)
[2019-01-18] MEDS: diltiaZEM 240 mg/24 Hours CD Cap PO SCH (08:58)
[2019-01-19 07:54] VITALS: RESP 18; TEMP 98
[2019-01-19] MEDS: diltiaZEM 240 mg/24 Hours CD Cap PO SCH (08:48)
--- NOTE | 2019-01-19 11:14 | CARD ---
APPROVED REPORT Date of service: 01/19/2019 EKG Measurement Heart [id number] <Conclusion> Atrial fibrillation Incomplete right bundle branch block Nonspecific T wave abnormality Abnormal ECG
--- NOTE | 2019-01-19 11:18 | CP.PCM.PCO ---
Assessment/Plan - Assessment and Plan (Free Text) Assessment: Patient seen and examined this morning. AOx3 with no complaints of chest pain, shortness of breath nausea or vomiting. VSS, rate afib 80-108 Physical therapy notes reviewed, patient walking well with steady gait. Recommendations for tcu, spoke to DARLIN who states TCU is not in network with his insurance. Patient referred to [facility] however patient refusing to go. would like to return home with home physical therapy. Patient cleared for dc home RX for medications and walker provider. Discussed with Dr Banda and medications reviewed. DAMON Manzanares making arrangement for home physical therapy and home health services. All above discussed with dr rucker.
[2019-01-19 12:03] VITALS: BP 125/84; PULSE 91; O2SAT 99
--- NOTE | 2019-01-24 14:00 | PQF ---
PROVIDER RESPONSE TEXT: Sepsis probably related to aspiration pneumonia REVIEWER QUERY TEXT: Rule Out Sepsis Clarification Sepsis is documented in the Medical Record. Please clarify whether: -- Patient has sepsis - Please document confirmed, suspected or probable causative organism - Please document confirmed, suspected or probable localized infection - Please clarify if sepsis is related to a device - Please clarify if sepsis was present on admission -- Sepsis was ruled out (include corresponding diagnosis for patient?s clinical picture and treatment ) -- Patient had sepsis which is resolved -- Other, please specify The patient's Clinical Indicators include: 12/[address] Bello "septic hypoxic encephalopathy." 01/04 critical care progress note by Dr. Cochran "sepsis well controlled." 12/[address] Banda "sirs." Query created by: Tonie Lane on 01/20/2019 10:21 AM Electronically signed by: Cookie Franco MD 01/24/2019 1:57 PM
--- NOTE | 2019-01-24 14:29 | CARD ---
APPROVED REPORT Date of service: 01/14/2019 EXAM: Transesophageal echocardiogram with color flow Doppler and Synchronized Cardioversion. INDICATION Atrial Fibrillation Mitral Valve Disease Thrombus Cardioversion RISK FACTORS Hypertension Hyperlipidemia Family History Diabetes Smoking Mitral Valve E/A ratio0.0 TDI E/Lateral E'0.0E/Medial E'0.0 Reason For Test : Rule out cardiac source of emboli. PROCEDURE After obtaining informed consent, patient underwent transesophageal echo in the ICU/CCU. Type of Sedation : Conscious Sedation Sedation was provided by anesthesiologist. Sedation was achieved with intravenously. Transesophageal probe was inserted and advanced into esophagus without difficulty. The SADIQ was performed complications. Synchronized Cardioversion acheived with 100 Joules after 1 attempt(s). Rhythm following Synchronized Cardioversion: Normal Sinus Rhythm Throughout the procedure, the blood pressure, pulse oximetry, cardiac rhythm, and rate were monitored. The patient tolerated the procedure without adverse effects. Recovery from conscious sedation was uneventful and vital signs were stable. LEFT VENTRICLE The left ventricle is normal size. There is normal left ventricular wall thickness. The left ventricular function is normal. The left ventricular ejection fraction is within the normal range. LVEF is 60-65%. There is normal LV segmental wall motion. nwv No left ventricle thrombus noted on this study. There is no mass noted in the left ventricle. RIGHT VENTRICLE The right ventricle is normal size. There is normal right ventricular wall thickness. The right ventricular systolic function is normal. ATRIA The left atrium is severely dilated. There is no mass or thrombus suspected in the left atrium. The right atrium is mildly dilated. There is no mass or thrombus suspected in the right atrium. The interatrial septum is intact with no evidence for an atrial septal defect. AORTIC VALVE The aortic valve is normal in structure. There is mild aortic regurgitation. There is no aortic valvular stenosis. There is no aortic valvular vegetation. MITRAL VALVE Mitral annular calcification is mild. The mitral valve leaflets are thickened. poor leaflet coaptation with mild ant mv prolapse There is no mitral valve stenosis. Mitral regurgitation is moderate. The jet is posterior and laterally directed. TRICUSPID VALVE The tricuspid valve is normal in structure. There is trace to mild tricuspid regurgitation. There is no tricuspid valve prolapse or vegetation. There is no tricuspid valve stenosis. PULMONIC VALVE The pulmonary valve is normal in structure. There is no pulmonic valvular regurgitation. There is no pulmonic valvular stenosis. GREAT VESSELS The aortic root is normal in size. There ismild atherosclerotic plaques in the aortic arch and descending aorta <Conclusion> No thrombus in LA body. moderate MR succesful cv x1 with 100j
== END 2019-01-19 14:22 | disposition home or self-care (01) | DRG 308 ==
LOC: H.ER 10:20 → SUPCPDRO 10:20 → H.ERHOLD 12:49 → H.TEL 15:32 → H.ICU/CCU 12-23 15:43 → H.TEL 01-06 18:38 → H.ICU/CCU 01-14 16:56 → H.TEL 01-16 15:04
PROVIDERS: ADMIT Internal Medicine; ATTEND Internal Medicine
PROC: 0BH17EZ Insertion of Endotracheal Airway into Trachea, Via Natural or Artificial Opening (ICD-10-PCS; principal; 2018-12-23)
PROC: 5A1955Z Respiratory Ventilation, Greater than 96 Consecutive Hours (ICD-10-PCS; 2018-12-23)
PROC: 06HM33Z Insertion of Infusion Device into Right Femoral Vein, Percutaneous Approach (ICD-10-PCS; 2018-12-23)
PROC: 04HY32Z Insertion of Monitoring Device into Lower Artery, Percutaneous Approach (ICD-10-PCS; 2018-12-23)
PROC: 02HV33Z Insertion of Infusion Device into Superior Vena Cava, Percutaneous Approach (ICD-10-PCS; 2018-12-28)
PROC: 0W9B3ZZ Drainage of Left Pleural Cavity, Percutaneous Approach (ICD-10-PCS; 2019-01-07)
PROC: B246ZZ4 Ultrasonography of Right and Left Heart, Transesophageal (ICD-10-PCS; 2019-01-14)
DX: I48.2 Chronic atrial fibrillation (principal); J69.0 Pneumonitis due to inhalation of food and vomit; J96.01 Acute respiratory failure with hypoxia; J96.02 Acute respiratory failure with hypercapnia; G93.41 Metabolic encephalopathy; A41.9 Sepsis, unspecified organism; Z99.11 Dependence on respirator [ventilator] status; I50.22 Chronic systolic (congestive) heart failure; J98.11 Atelectasis; J91.8 Pleural effusion in other conditions classified elsewhere; J44.1 Chronic obstructive pulmonary disease with (acute) exacerbation; D62 Acute posthemorrhagic anemia; N17.9 Acute kidney failure, unspecified; S37.30XA Unspecified injury of urethra, initial encounter; I97.618 Postprocedural hemorrhage of a circulatory system organ or structure following other circulatory system procedure; I11.0 Hypertensive heart disease with heart failure; F03.90 Unspecified dementia, unspecified severity, without behavioral disturbance, psychotic disturbance, mood disturbance, and anxiety; F32.9 Major depressive disorder, single episode, unspecified; F41.9 Anxiety disorder, unspecified; E78.00 Pure hypercholesterolemia, unspecified; Z91.19 Patient's noncompliance with other medical treatment and regimen; Z87.891 Personal history of nicotine dependence; R74.8 Abnormal levels of other serum enzymes; E86.0 Dehydration; F43.10 Post-traumatic stress disorder, unspecified; E78.5 Hyperlipidemia, unspecified; D22.9 Melanocytic nevi, unspecified; R31.9 Hematuria, unspecified; I34.0 Nonrheumatic mitral (valve) insufficiency; D63.8 Anemia in other chronic diseases classified elsewhere; Y84.6 Urinary catheterization as the cause of abnormal reaction of the patient, or of later complication, without mention of misadventure at the time of the procedure; Y73.2 Prosthetic and other implants, materials and accessory gastroenterology and urology devices associated with adverse incidents; X58.XXXA Exposure to other specified factors, initial encounter; Y83.8 Other surgical procedures as the cause of abnormal reaction of the patient, or of later complication, without mention of misadventure at the time of the procedure; E87.70 Fluid overload, unspecified